=== PATIENT | female | born 1960 | race Caucasian/White ===

== ENCOUNTER 2016-02-29 16:12 | Emergency (ER) | payer MEDICARE, OTHER ==
--- NOTE | 2016-02-29 17:04 | ED ---
General Adult HPI - General Chief complaint: Extremity Problem,Nontraumatic Stated complaint: Foot Laceration Time Seen by Provider: 02/29/16 16:43 Source: patient, RN notes reviewed Mode of arrival: wheelchair Limitations: no limitations - History of Present Illness Initial comments: Patient 55-year-old female sitting past medical history of diabetes, who presents emergency room today with a chief complaint of a wound to the left heel 4 days. She does admit that she noticed 4 days ago. States been bleeding on and off. She does admit some local pain tenderness. Denies any significant injury or trauma. Does admit to a neuropathy. Does not remember stepping on anything. Patient admits that she's been out of her medications. States she has not seen her family doctor in 2-3 months. States she has difficult time making appointments at his office. Patient currently denies any other complaints or associated symptoms. Further information obtained from brother away from bedside stating that she has been refusing to go see the family doctor. States has not been taking medications at home. Patient denies any recent fever, chills, shortness of breath, chest pain, back pain, abdominal pain, nausea or vomiting, dysuria or hematuria, constipation or diarrhea, headaches or visual changes, or any other complaints. - Related Data Home Medications Medication Instructions Recorded Confirmed Aspirin EC [Ecotrin Low Dose] 81 mg PO DAILY 11/30/15 02/29/16 Atorvastatin [Lipitor] 10 mg PO DAILY 11/30/15 02/29/16 Ergocalciferol (Vitamin D2) 50,000 unit PO Q7D 02/29/16 02/29/16 [Vitamin D2] Previous Rx's Medication Instructions Recorded Linagliptin [Tradjenta] 5 mg PO DAILY #30 tablet 12/01/15 Cephalexin [Keflex] 500 mg PO Q12HR 10 Days 02/29/16 Insulin Aspart [NovoLOG Flexpen] 10 units SQ AC-TID #60 insuln.pen 02/29/16 Insulin Detemir [Levemir Flextouch] 34 unit SQ BID #3 insuln.pen 02/29/16 Levothyroxine Sodium [Synthroid] 50 mcg PO DAILY #30 tab 02/29/16 metFORMIN HCL [Glucophage] 500 mg PO BID-W/MEALS #60 tab 02/29/16 Allergies Allergy/AdvReac Type Severity Reaction Status Date / Time No Known Allergies Allergy Verified 02/29/16 16:57 Review of Systems ROS Statement: Those systems with pertinent positive or pertinent negative responses have been documented in the HPI. ROS Other: All systems not noted in ROS Statement are negative. Past Medical History Past Medical History: Diabetes Mellitus, Fibromyalgia, Hyperlipidemia, Musculoskeletal Disorder, Neurologic Disorder, Osteoarthritis (OA), Sleep Apnea/ CPAP/BIPAP, Thyroid Disorder Additional Past Medical History / Comment(s): neuropathy, bowel and bladder incont, History of Any Multi-Drug Resistant Organisms: None Reported Past Surgical History: No Surgical Hx Reported Past Psychological History: No Psychological Hx Reported Smoking Status: Current every day smoker Past Alcohol Use History: Rare Past Drug Use History: None Reported - Past Family History Mother Family Medical History: Cancer (Mother at age of 69 from lung cancer.) Father Family Medical History: Cancer (Father at age of 60 from mesothelioma.) Brother(s) Family Medical History: Coronary Artery Disease (CAD) (Patient has one brother with CAD.) Sister(s) Family Medical History: Hypertension (Patient has one sister with hypertension.) Daughter(s) Family Medical History: No Reported History (Patient has one daughter no major medical problems) Son(s) Family Medical History: No Reported History (Patient has one son no major medical problems) General Exam - General Exam Comments Initial Comments: General: The patient is awake and alert, in no distress, and does not appear acutely ill. Eye: Pupils are equal, round and reactive to light, extra-ocular movements are intact. No nystagmus. There is normal conjunctiva bilaterally. No signs of icterus. Ears, nose, mouth and throat: There are moist mucous membranes and no oral lesions. Neck: The neck is supple, there is no tenderness or JVD. Cardiovascular: There is a regular rate and rhythm. No murmur, rub or gallop is appreciated. Respiratory: Lungs are clear to auscultation, respirations are non-labored, breath sounds are equal. No wheezes, stridor, rales, or rhonchi. Musculoskeletal: Normal ROM, no tenderness. Strength 5/5. Sensation intact. Pulses equal bilaterally 2+. Neurological: A&O x 3. CN II-XII intact, There are no obvious motor or sensory deficits. Coordination appears grossly intact. Speech is normal. Skin: He does have some skin breakdown to the posterior left heel. Color white. No deep wound. Dry blood locally. Psychiatric: Cooperative, appropriate mood & affect, normal judgment. Limitations: no limitations Course Vital Signs 02/29/16 16:15 Temperature 98.1 F Pulse Rate 92 Respiratory 16 Rate Blood Pressure 138/82 O2 Sat by Pulse 98 Oximetry Medical Decision Making - Medical Decision Making Patient's x-ray reviewed shows no evidence for osteomyelitis. No other acute abnormalities appreciated. Results were discussed with the patient. Patient will be started back on occasions for her diabetes along with Synthroid for hypothyroidism. Patient is advised follow-up with family doctor. She also be given information for on-call doctor states she's unhappy with her current doctor at this time. Patient will also be started on antibiotics for ulcer to the left foot. She is admitted aware of signs and symptoms to return. Patient states understanding and is in agreement. Disposition Clinical Impression: Diabetic foot ulcer Disposition: HOME SELF-CARE Condition: Good Instructions: Diabetic Foot Ulcers (ED) Additional Instructions: Please follow-up the family doctor over the next 2-5 days as discussed. Please use antibiotic as prescribed. Please resume previous medications of insulin, metformin, Synthroid. Please return here to emergency room if any symptoms increase or worsen or for any other concerns as discussed. Prescriptions: Cephalexin [Keflex] 500 mg PO Q12HR 10 Days Insulin Aspart [NovoLOG Flexpen] 10 units SQ AC-TID #60 insuln.pen Insulin Detemir [Levemir Flextouch] 34 unit SQ BID #3 insuln.pen Levothyroxine Sodium [Synthroid] 50 mcg PO DAILY #30 tab metFORMIN HCL [Glucophage] 500 mg PO BID-W/MEALS #60 tab Referrals: Lee Carter DO [Primary Care Provider] - 1-2 days Edgar Gallardo MD [REFERRING] - 1-2 days Jasmina Loja MD [STAFF PHYSICIAN] - 1-2 days Time of Disposition: 18:01
--- NOTE | 2016-02-29 17:47 | XR ---
EXAMINATION TYPE: XR foot complete LT DATE OF EXAM: 02/29/2016 5:36 PM COMPARISON: NONE HISTORY: Heel infection TECHNIQUE: 3 views FINDINGS: Metatarsals appear intact. There is a moderate plantar calcaneal spur. There is soft tissue deformity at the plantar aspect of the calcaneus consistent with ulceration. There are no erosions. IMPRESSION: Calcaneal spurring. No evidence of osteomyelitis. Soft tissue ulceration.
[2016-02-29 18:25] VITALS: RESP 18
[2016-02-29 18:26] VITALS: BP 146/88; PULSE 79; TEMP 98.4
== END 2016-02-29 18:15 | disposition home or self-care (01) ==
LOC: EC 16:12
DX: E11.621 Type 2 diabetes mellitus with foot ulcer (principal); E78.5 Hyperlipidemia, unspecified; M19.90 Unspecified osteoarthritis, unspecified site; E03.9 Hypothyroidism, unspecified; Z79.82 Long term (current) use of aspirin; Z79.4 Long term (current) use of insulin; Z79.899 Other long term (current) drug therapy; Z79.84 Long term (current) use of oral hypoglycemic drugs; F17.200 Nicotine dependence, unspecified, uncomplicated
CPT/HCPCS: 99283

== ENCOUNTER 2016-03-08 09:56 | Inpatient (IN) | payer MEDICARE, OTHER ==
--- NOTE | 2016-03-08 10:48 | ED ---
General Adult HPI - General Chief complaint: Recheck/Abnormal Lab/Rx Stated complaint: LEFT FOOT PAIN Source: patient, RN notes reviewed Mode of arrival: wheelchair Limitations: no limitations - History of Present Illness Initial comments: Is a 55-year-old female comes in and is a diabetic. She comes in complaining of a left heel ulcer. Patient states she was in the ER a few days ago and has not followed up with primary medical care doctor. She states the ulcer is getting worse on the foot and now her plantar surface of her mid foot is very tender to touch. The daughter is been taking care of the foot and she has noted redness spreading on the bottom of her foot as well. An has noted that the patient's pain is much worse. Patient states she has switched primary care so she does not have an appointment with her new primary care until Sunday and she states she has never seen him before. Patient denies any fever or chills. Patient denies any other problems at this time. - Related Data Home Medications Medication Instructions Recorded Confirmed Aspirin EC [Ecotrin Low Dose] 81 mg PO DAILY 11/30/15 04/13/16 Atorvastatin [Lipitor] 20 mg PO DAILY 11/30/15 04/13/16 Gabapentin [Neurontin] 100 mg PO DAILY 03/27/16 04/13/16 HYDROcodone/APAP 10-325MG [Mason 1 tab PO BID 03/27/16 04/13/16 10-325] Losartan [Cozaar] 100 mg PO DAILY 03/27/16 04/13/16 Levothyroxine Sodium [Synthroid] 100 mcg PO DAILY 04/13/16 04/13/16 Previous Rx's Medication Instructions Recorded Insulin Aspart [NovoLOG Flexpen] 10 units SQ AC-TID #60 insuln.pen 02/29/16 Insulin Detemir [Levemir Flextouch] 34 unit SQ BID #3 insuln.pen 02/29/16 Ertapenem [INVanz] 1 gm IVPB DAILY vial 03/11/16 Allergies Allergy/AdvReac Type Severity Reaction Status Date / Time No Known Allergies Allergy Verified 04/10/16 13:27 Review of Systems ROS Statement: Those systems with pertinent positive or pertinent negative responses have been documented in the HPI. ROS Other: All systems not noted in ROS Statement are negative. Past Medical History Past Medical History: Diabetes Mellitus, Fibromyalgia, Hyperlipidemia, Musculoskeletal Disorder, Neurologic Disorder, Osteoarthritis (OA), Sleep Apnea/ CPAP/BIPAP, Thyroid Disorder Additional Past Medical History / Comment(s): neuropathy, bowel and bladder incont, History of Any Multi-Drug Resistant Organisms: None Reported Past Surgical History: No Surgical Hx Reported Past Psychological History: No Psychological Hx Reported Smoking Status: Current every day smoker Past Alcohol Use History: Rare Past Drug Use History: None Reported - Past Family History Mother Family Medical History: Cancer (Mother at age of 69 from lung cancer.) Father Family Medical History: Cancer (Father at age of 60 from mesothelioma.) Brother(s) Family Medical History: Coronary Artery Disease (CAD) (Patient has one brother with CAD.) Sister(s) Family Medical History: Hypertension (Patient has one sister with hypertension.) Daughter(s) Family Medical History: No Reported History (Patient has one daughter no major medical problems) Son(s) Family Medical History: No Reported History (Patient has one son no major medical problems) General Exam - General Exam Comments Initial Comments: GENERAL: Patient is well-developed and well-nourished. Patient is nontoxic and well- hydrated and is in mild distress. ENT: Neck is soft and supple. No significant lymphadenopathy is noted. Oropharynx is clear. Moist mucous membranes. Neck has full range of motion without eliciting any pain. EYES: The sclera were anicteric and conjunctiva were pink and moist. Extraocular movements were intact and pupils were equal round and reactive to light. Eyelids were unremarkable. PULMONARY: Unlabored respirations. Good breath sounds bilaterally. No audible rales rhonchi or wheezing was noted. CARDIOVASCULAR: There is a regular rate and rhythm without any murmurs gallops or rubs. ABDOMEN: Soft and nontender with normal bowel sounds. No palpable organomegaly was noted. There is no palpable pulsatile mass. SKIN: Skin is clear with no lesions or rashes and otherwise unremarkable. NEUROLOGIC: Patient is alert and oriented x3. Cranial nerves II through XII are grossly intact. Motor and sensory are also intact. Normal speech, volume and content. Symmetrical smile. MUSCULOSKELETAL: Normal extremities with adequate strength and full range of motion. No lower extremity swelling or edema. No calf tenderness. Patient's heel on the left foot has an area where there is skin overlying an area measuring about 3 cm in diameter and there is a small area where there is bleeding. Patient is tender there and up into the plantar surface of the foot is also red from the heel to the middle of the foot. LYMPHATICS: No significant lymphadenopathy is noted PSYCHIATRIC: Normal psychiatric evaluation. Limitations: no limitations Course Vital Signs 03/08/16 03/08/16 03/08/16 09:57 11:44 12:14 Temperature 97.6 F Pulse Rate 89 79 78 Respiratory 18 18 18 Rate Blood Pressure 124/79 156/78 149/72 O2 Sat by Pulse 96 97 98 Oximetry 03/08/16 03/08/16 03/08/16 12:58 13:03 14:40 Temperature 98.3 F 98.1 F Pulse Rate 83 81 Respiratory 18 18 20 Rate Blood Pressure 146/54 156/70 O2 Sat by Pulse 99 98 Oximetry Medical Decision Making - Medical Decision Making X-ray of the foot shows no signs of osteomyelitis. - Lab Data Result diagrams: 03/10/16 08:19 03/10/16 08:19 Lab Results 03/08/16 03/08/16 03/08/16 Range/Units 10:40 10:40 10:40 WBC 16.1 H (3.8-10.6) k/uL RBC 4.70 (3.80-5.40) m/uL Hgb 14.4 (11.4-16.0) gm/dL Hct 43.6 (34.0-46.0) % MCV 92.7 (80.0-100.0) fL MCH 30.7 (25.0-35.0) pg MCHC 33.1 (31.0-37.0) g/dL RDW 13.2 (11.5-15.5) % Plt Count 355 (150-450) k/uL Neutrophils % 74 % Lymphocytes % 19 % Monocytes % 3 % Eosinophils % 2 % Basophils % 1 % Neutrophils # 12.0 H (1.3-7.7) k/uL Lymphocytes # 3.1 (1.0-4.8) k/uL Monocytes # 0.5 (0-1.0) k/uL Eosinophils # 0.3 (0-0.7) k/uL Basophils # 0.1 (0-0.2) k/uL ESR (0-20) mm/hr Sodium 134 L (137-145) mmol/L Potassium 4.9 (3.5-5.1) mmol/L Chloride 96 L (98-107) mmol/L Carbon Dioxide 26 (22-30) mmol/L Anion Gap 12 mmol/L BUN 15 (7-17) mg/dL Creatinine 0.64 (0.52-1.04) mg/dL Est GFR (MDRD) Af Amer >60 (>60 ml/min/1.73 sqM) Est GFR (MDRD) Non-Af >60 (>60 ml/min/1.73 sqM) Glucose 212 H (74-99) mg/dL POC Glucose (mg/dL) (75-99) mg/dL POC Glu Pediatric Urologist ID [address] Glu mg/dL 329 mg/dL Hemoglobin A1c 13.1 H (4.2-6.1) % Plasma Lactic Acid Madhu (0.7-2.0) mmol/L Calcium 9.9 (8.4-10.2) mg/dL Total Bilirubin 0.6 (0.2-1.3) mg/dL AST 32 (14-36) U/L ALT 19 (9-52) U/L Alkaline Phosphatase 118 (38-126) U/L C-Reactive Protein (<10.0) mg/L Total Protein 8.6 H (6.3-8.2) g/dL Albumin 3.8 (3.5-5.0) g/dL Prealbumin (18-36) mg/dL 03/08/16 03/08/16 03/08/16 Range/Units 11:25 14:43 16:13 WBC (3.8-10.6) k/uL RBC (3.80-5.40) m/uL Hgb (11.4-16.0) gm/dL Hct (34.0-46.0) % MCV (80.0-100.0) fL MCH (25.0-35.0) pg MCHC (31.0-37.0) g/dL RDW (11.5-15.5) % Plt Count (150-450) k/uL Neutrophils % % Lymphocytes % % Monocytes % % Eosinophils % % Basophils % % Neutrophils # (1.3-7.7) k/uL Lymphocytes # (1.0-4.8) k/uL Monocytes # (0-1.0) k/uL Eosinophils # (0-0.7) k/uL Basophils # (0-0.2) k/uL ESR (0-20) mm/hr Sodium (137-145) mmol/L Potassium (3.5-5.1) mmol/L Chloride (98-107) mmol/L Carbon Dioxide (22-30) mmol/L Anion Gap mmol/L BUN (7-17) mg/dL Creatinine (0.52-1.04) mg/dL Est GFR (MDRD) Af Amer (>60 ml/min/1.73 sqM) Est GFR (MDRD) Non-Af (>60 ml/min/1.73 sqM) Glucose (74-99) mg/dL POC Glucose (mg/dL) 225 H 229 H (75-99) mg/dL POC Glu Pediatric Urologist Hola Mitchell [address] Glu mg/dL mg/dL Hemoglobin A1c (4.2-6.1) % Plasma Lactic Acid Madhu 1.2 (0.7-2.0) mmol/L Calcium (8.4-10.2) mg/dL Total Bilirubin (0.2-1.3) mg/dL AST (14-36) U/L ALT (9-52) U/L Alkaline Phosphatase (38-126) U/L C-Reactive Protein (<10.0) mg/L Total Protein (6.3-8.2) g/dL Albumin (3.5-5.0) g/dL Prealbumin (18-36) mg/dL 03/08/16 03/08/16 03/09/16 Range/Units 17:28 21:19 07:35 WBC (3.8-10.6) k/uL RBC (3.80-5.40) m/uL Hgb (11.4-16.0) gm/dL Hct (34.0-46.0) % MCV (80.0-100.0) fL MCH (25.0-35.0) pg MCHC (31.0-37.0) g/dL RDW (11.5-15.5) % Plt Count (150-450) k/uL Neutrophils % % Lymphocytes % % Monocytes % % Eosinophils % % Basophils % % Neutrophils # (1.3-7.7) k/uL Lymphocytes # (1.0-4.8) k/uL Monocytes # (0-1.0) k/uL Eosinophils # (0-0.7) k/uL Basophils # (0-0.2) k/uL ESR (0-20) mm/hr Sodium (137-145) mmol/L Potassium (3.5-5.1) mmol/L Chloride (98-107) mmol/L Carbon Dioxide (22-30) mmol/L Anion Gap mmol/L BUN (7-17) mg/dL Creatinine (0.52-1.04) mg/dL Est GFR (MDRD) Af Amer (>60 ml/min/1.73 sqM) Est GFR (MDRD) Non-Af (>60 ml/min/1.73 sqM) Glucose (74-99) mg/dL POC Glucose (mg/dL) 233 H 230 H 207 H (75-99) mg/dL POC Glu Pediatric Urologist Tala Cobb Joanna Bramer, [place] [address] Glu mg/dL mg/dL Hemoglobin A1c (4.2-6.1) % Plasma Lactic Acid Madhu (0.7-2.0) mmol/L Calcium (8.4-10.2) mg/dL Total Bilirubin (0.2-1.3) mg/dL AST (14-36) U/L ALT (9-52) U/L Alkaline Phosphatase (38-126) U/L C-Reactive Protein (<10.0) mg/L Total Protein (6.3-8.2) g/dL Albumin (3.5-5.0) g/dL Prealbumin (18-36) mg/dL 03/09/16 03/09/16 03/09/16 Range/Units 08:38 08:38 12:30 WBC (3.8-10.6) k/uL RBC (3.80-5.40) m/uL Hgb (11.4-16.0) gm/dL Hct (34.0-46.0) % MCV (80.0-100.0) fL MCH (25.0-35.0) pg MCHC (31.0-37.0) g/dL RDW (11.5-15.5) % Plt Count (150-450) k/uL Neutrophils % % Lymphocytes % % Monocytes % % Eosinophils % % Basophils % % Neutrophils # (1.3-7.7) k/uL Lymphocytes # (1.0-4.8) k/uL Monocytes # (0-1.0) k/uL Eosinophils # (0-0.7) k/uL Basophils # (0-0.2) k/uL ESR 93 H (0-20) mm/hr Sodium (137-145) mmol/L Potassium (3.5-5.1) mmol/L Chloride (98-107) mmol/L Carbon Dioxide (22-30) mmol/L Anion Gap mmol/L BUN (7-17) mg/dL Creatinine (0.52-1.04) mg/dL Est GFR (MDRD) Af Amer (>60 ml/min/1.73 sqM) Est GFR (MDRD) Non-Af (>60 ml/min/1.73 sqM) Glucose (74-99) mg/dL POC Glucose (mg/dL) 320 H (75-99) mg/dL POC Glu Pediatric Urologist ID Tala Goode [address] Glu mg/dL mg/dL Hemoglobin A1c (4.2-6.1) % Plasma Lactic Acid Madhu (0.7-2.0) mmol/L Calcium (8.4-10.2) mg/dL Total Bilirubin (0.2-1.3) mg/dL AST (14-36) U/L ALT (9-52) U/L Alkaline Phosphatase (38-126) U/L C-Reactive Protein 33.0 H (<10.0) mg/L Total Protein (6.3-8.2) g/dL Albumin (3.5-5.0) g/dL Prealbumin 16 L (18-36) mg/dL Disposition Clinical Impression: Infected decubitus ulcer Disposition: ADMITTED IP TO THIS HOSP
--- NOTE | 2016-03-08 11:02 | XR ---
EXAMINATION TYPE: XR foot complete LT DATE OF EXAM: 03/08/2016 10:58 AM CLINICAL HISTORY: pain TECHNIQUE: Frontal, lateral and oblique images of the left foot are obtained. COMPARISON: 1717 FINDINGS: There is no acute fracture/dislocation evident. The joint spaces appear within normal buchanan its. The overlying soft tissue appears unremarkable. Plantar and dorsal calcaneal spurring noted. IMPRESSION: There is no acute fracture or dislocation. ICD 10 NO FRACTURE, INITIAL EVALUATION
[2016-03-08 11:06] LABS: Basophils # (A) 0.1 k/uL (0-0.2); Basophils % (A) 1 %; CH 31.1; CHCM 33.7; Eosinophils # (A) 0.3 k/uL (0-0.7); Eosinophils % (A) 2 %; HCT 43.6 % (34.0-46.0); HDW 2.72; HGB 14.4 gm/dL (11.4-16.0); Luc # (Auto) 0.22; Luc % (Auto) 1; Lymphocytes # (A) 3.1 k/uL (1.0-4.8); Lymphocytes % (A) 19 %; MCH 30.7 pg (25.0-35.0); MCHC 33.1 g/dL (31.0-37.0); MCV 92.7 fL (80.0-100.0); Mean Platelet Volume 7.8; Monocytes # (A) 0.5 k/uL (0-1.0); Monocytes % (A) 3 %; Neutrophils % (A) 74 %; RDW 13.2 % (11.5-15.5); WBC 16.1 k/uL (3.8-10.6); WBC (Perox) 16.46
[2016-03-08 11:20] LABS: ALT 19 U/L (9-52); AST 32 U/L (14-36); Alkaline Phosphatase 118 U/L (38-126); Anion Gap 12 mmol/L; Blood Urea Nitrogen 15 mg/dL (7-17); Calcium 9.9 mg/dL (8.4-10.2); Carbon Dioxide 26 mmol/L (22-30); Chloride 96 mmol/L (98-107); Glucose 212 mg/dL (74-99); Non-African American GFR(MDRD) >60 (>60 ml/min/1.73 sqM); Sodium 134 mmol/L (137-145); Total Bilirubin 0.6 mg/dL (0.2-1.3); Total Protein 8.6 g/dL (6.3-8.2)
[2016-03-08 11:35] LABS: Potassium 4.9 mmol/L (3.5-5.1)
[2016-03-08] MEDS ORDERED: IV VANCOMYCIN PER PHARMACY 1 EACH MISC MISCELLANE PRN (12:30)
[2016-03-08] MEDS ORDERED: VANCOMYCIN 1,750 MG in SODIUM CHLORIDE 0.9% 250 ML IVPB STA (12:31)
[2016-03-08] MEDS ORDERED: SODIUM CHLORIDE 0.9% 1,000 ML IV ONE (12:31)
[2016-03-08] MEDS ORDERED: HYDROmorphone 1 MG/ML 1 ML SYRINGE IVP STA ×2 (14:15→14:18)
[2016-03-08 14:26] LABS: Hemoglobin A1C 13.1 % (4.2-6.1)
[2016-03-08 14:45] LABS: Glucose,Whole Blood 225 mg/dL (75-99)
[2016-03-08] MEDS: INSULIN LISPRO (humaLOG) 300 UNIT/3 ML VIAL SQ SCH ×3 (14:58→21:53)
[2016-03-08 16:14] LABS: Glucose,Whole Blood 229 mg/dL (75-99)
[2016-03-08 17:29] LABS: Glucose,Whole Blood 233 mg/dL (75-99)
[2016-03-08] MEDS: KETOROLAC 30 MG/ML 1 ML VIAL IVP SCH (18:03)
[2016-03-08] MEDS: HYDROcodone/APAP 10-325MG 1 EACH TAB PO PRN (18:05)
[2016-03-08] MEDS ORDERED: NICOTINE 21MG/24HR PATCH TRANSDERM STA (18:15)
[2016-03-08 18:31] VITALS: BMI 44.2
--- NOTE | 2016-03-08 19:19 | HP ---
DATE OF ADMISSION: Patient is a 55-year-old who came in with a left heel ulcer; came in for ( ) ulcer and patient came in with the same ulcer in the ( ) foot area, for which patient was given ( ). ( ) and was sent home. Patient came in with worsening wound. Patient is a diabetic, does have peripheral neuropathy symptoms and appears to have been noncompliant with her medications. Patient states she started taking her diabetic medications about a week ago. Patient's hemoglobin A1C is 13. Patient denied any fever or chills. Patient denied any nausea or vomiting. Patient is complaining of some minimal pain in that area. Patient does have ( ) numbness in bilateral foot area. Patient has ( ) around that area. REVIEW OF SYSTEMS: CONSTITUTIONAL: No fever, no malaise, no fatigue. HEENT: No recent visual problems or hearing problems. Denied any sore throat. CARDIOVASCULAR: No chest pain, orthopnea, PND, no palpitations, no syncope. PULMONARY: No shortness of breath, no cough, no hemoptysis. GASTROINTESTINAL: No diarrhea, no nausea, no vomiting, no abdominal pain. Normoactive bowel sounds. NEUROLOGICAL: No headaches, no weakness, no numbness. HEMATOLOGICAL: Denies any bleeding or petechiae. GENITOURINARY: Denies any burning micturition, frequency, or urgency. MUSCULOSKELETAL/RHEUMATOLOGICAL: Denies any joint pain, swelling, or any muscle pain. ENDOCRINE: Denies any polyuria or polydipsia. DERMATOLOGIC: As described in HPI. The rest of the 14 point review of systems is negative. Home medications include: 1. Aspirin. 2. Atorvastatin. 3. Ergocalciferol. 4. Linagliptin. 5. Cephalexin. 6. Insulin Aspart. 7. Levemir. 8. Levothyroxine. 9. Metformin. ALLERGIES: NO KNOWN DRUG ALLERGIES. Past medical history is significant for: 1. Diabetes mellitus. 2. Fibromyalgia. 3. Hyperlipidemia. 4. Osteoarthritis. 5. Sleep apnea; uses CPAP machine at home. 6. Hypothyroidism. 7. Uncontrolled diabetes mellitus; noncompliance with medications. SOCIAL HISTORY: Patient does smoke a pack per day. Denied any alcohol abuse or any drug abuse. FAMILY HISTORY: Mother had cancer; of lung cancer at age 69. Father had mesothelioma, at age 60. Brother had coronary artery disease. Sister had hypertension. PHYSICAL EXAMINATION: VITAL SIGNS: Temperature afebrile at 97.6, pulse of 89, respiratory rate of 18, blood pressure 124/79. Saturating at 96% on room air. GENERAL: The patient is alert and oriented x3, not in any acute distress. Well developed, well nourished. HEENT: Pupils are round and equally reacting to light. EOMI. No scleral icterus. No conjunctival pallor. Normocephalic, atraumatic. No pharyngeal erythema. No thyromegaly. CARDIOVASCULAR: S1 and S2 present. No murmurs, rubs, or gallops. PULMONARY: Chest is clear to auscultation, no wheezing or crackles. ABDOMEN: Soft, nontender, nondistended, normoactive bowel sounds. No palpable organomegaly. MUSCULOSKELETAL: No joint swelling or deformity. EXTREMITIES: No cyanosis, clubbing, or pedal edema. NEUROLOGICAL: Gross neurological examination did not reveal any focal deficits. SKIN: Patient has an ulcer in the left heel area with skin breakdowns and cellulitis and pus drainage, about 3 cm diameter on the plantar surface of the foot with foul-smelling drainage. Patient may need debridement. LABORATORY DATA: CBC, CMP are abnormal for elevated WBC count of 16,100 and mildly low sodium of 134. ASSESSMENT AND PLAN: 1. Diabetic foot ulcer. Patient's main ( ) need debridement. Will consult Surgery. Patient was started on vancomycin. Because of the foul-smelling drainage, patient may need coverage for anaerobes, and Unasyn is appropriate. Patient will be started on Unasyn as well. 2. Diabetes mellitus with diabetic neuropathy. Patient is highly noncompliant with medication. Counseling was provided regarding that. 3. Coronary artery disease. 4. Hyperlipidemia. 5. Hypertension. 6. Type 2 diabetes mellitus. For above-mentioned chronic medical problems, I will go ahead and continue her home medications. Patient does have sleep apnea and uses CPAP machine. Obesity counseling was provided.
[2016-03-08 21:23] LABS: Glucose,Whole Blood 230 mg/dL (75-99)
[2016-03-08] MEDS: VANCOMYCIN 1,750 MG in SODIUM CHLORIDE 0.9% 250 ML IVPB SCH (21:53)
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
[2016-03-09] MEDS: PIPERACILLIN-TAZOBACTAM 3.375 GM in DEXTROSE/WATER 1 50ML.BAG IVPB SCH ×3 (00:51→16:46)
[2016-03-09] MEDS: KETOROLAC 30 MG/ML 1 ML VIAL IVP SCH ×4 (00:51→18:21)
[2016-03-09 07:37] LABS: Glucose,Whole Blood 207 mg/dL (75-99)
[2016-03-09] MEDS: NICOTINE 21MG/24HR PATCH TRANSDERM SCH (08:36)
[2016-03-09] MEDS: VANCOMYCIN 1,750 MG in SODIUM CHLORIDE 0.9% 250 ML IVPB SCH ×2 (08:36→22:21)
[2016-03-09] MEDS: INSULIN LISPRO (humaLOG) 300 UNIT/3 ML VIAL SQ SCH ×5 (08:36→22:18)
[2016-03-09] MEDS ORDERED: ERGOCALCIFEROL 50,000 UNIT CAP PO SCH (10:45)
[2016-03-09] MEDS ORDERED: metFORMIN 500 MG TAB PO SCH (10:45)
[2016-03-09] MEDS: LEVOTHYROXINE 50 MCG TAB PO SCH (11:50)
[2016-03-09] MEDS: metFORMIN 500 MG TAB PO SCH ×2 (11:50→17:48)
[2016-03-09 12:32] LABS: Glucose,Whole Blood 320 mg/dL (75-99)
--- NOTE | 2016-03-09 14:31 | NM ---
EXAMINATION TYPE: NM bone 3 phase DATE OF EXAM: 03/09/2016 2:00 PM COMPARISON: NONE HISTORY: Osteomyelitis left heel Triple phase bone scintigraphy was performed following the injection of27.5 mCi Tc 99m MDP. Immediat e images and 6 hours post injection images acquired. FINDINGS: All 3 phases of the study demonstrate intense radiotracer accumulation involving the posterior aspect of the left os calcis compatible with osteomyelitis. Mild degenerative uptake is seen about the midf oot. IMPRESSION: Findings compatible with osteomyelitis about the posterior aspect of the left os calcis.
--- NOTE | 2016-03-09 16:38 | P.PN ---
Subjective Date of service 03/09/2016. Progress note being dictated for Dr. Joe. Interval history: This is a 55-year-old female admitted with diabetic foot ulcer , uncontrolled diabetes mellitus, hemoglobin A1c 13.1 in a patient noncompliant with medication, and multiple other medical issues. Wound cultures pending. Maintained on vancomycin and Zosyn, local wound care as per infectious disease. Bone scan pending. Afebrile. Good diet intake with no nausea or vomiting. Blood sugars uncontrolled. Objective - Vital Signs Vital signs: Vital Signs Temp 98.1 F 03/09/16 07:00 Pulse 80 03/09/16 07:00 Resp 19 03/09/16 07:00 BP 150/79 03/09/16 07:00 Pulse Ox 97 03/09/16 07:00 Intake & Output 03/08/16 03/09/16 03/09/16 18:59 06:59 18:59 Intake Total 370 240 Balance 370 240 Weight 113.398 kg Intake: Amount of Fluid Infused ( 250 ml) Oral 120 240 Other: # Voids 1 - Exam PHYSICAL EXAM: VITAL SIGNS: As above GENERAL: [Sitting up at side of bed, no acute distress, eating lunch] HEENT: [Pupils equal conjunctiva normal.] NECK: [Supple, no JVD] RESPIRATORY EFFORT:[Normal] LUNGS: Diminished ,bilateral bases with fine crackles] CARDIOVASCULAR[regular S1 and S2, no murmur or rub or gallop] GI: [Abdomen soft, nontender, positive bowel sounds.] PSYCH: [Alert and oriented -3, mood and affect normal.] SKIN: Left heel dressing clean dry and intact - Labs CBC & Chem 7: 03/08/16 10:40 03/08/16 10:40 Labs: Abnormal Lab Results - Last 24 Hours (Table) 03/08/16 03/08/16 03/08/16 Range/Units 14:43 16:13 17:28 ESR (0-20) mm/hr POC Glucose (mg/dL) 225 H 229 H 233 H (75-99) mg/dL C-Reactive Protein (<10.0) mg/L Prealbumin (18-36) mg/dL 03/08/16 03/09/16 03/09/16 Range/Units 21:19 07:35 08:38 ESR 93 H (0-20) mm/hr POC Glucose (mg/dL) 230 H 207 H (75-99) mg/dL C-Reactive Protein (<10.0) mg/L Prealbumin (18-36) mg/dL 03/09/16 Range/Units 08:38 ESR (0-20) mm/hr POC Glucose (mg/dL) (75-99) mg/dL C-Reactive Protein 33.0 H (<10.0) mg/L Prealbumin 16 L (18-36) mg/dL Microbiology - Last 24 Hours (Table) 03/08/16 19:35 Gram Stain - Preliminary Heel - Left Wound Culture - Preliminary 03/08/16 19:35 Anaerobic Culture - Preliminary Heel - Left Assessment and Plan Plan: 1. Diabetic foot ulcer, bone scan pending, potential debridement. 2. [Diabetes mellitus II, uncontrolled, hemoglobin A1 C 13.1, patient noncompliant with medication]. 3. [Diabetic neuropathy]. 4. [CAD]. 5. [Hyperlipidemia]. 6. [Hypertension]. 7. Morbid obesity, BMI 44.3 8. Sleep apnea Plan: Continue on current medication regime ,monitoring and symptomatic treatment. Lantus, metformin added to med regime. Close monitoring of Accu- Cheks. May initially need an insulin drip. Antibiotics and wound care as per infectious disease. Bone scan pending as mentioned above. Surgery evaluation/ recommendations pending. Dietary, family life educator consults ordered. Social work consult placed given multiple psychosocial issues. Patient has recently changed her primary care to Dr. Gallardo. Prognosis guarded given multiple complex medical issues. The impression and plan of care has been dictated as directed. : I performed a H&P examination of this patient and discussed the same with the dictator. I agree with the dictator's note. Any additional findings/opinions/ etc. will be noted.
[2016-03-09 16:43] LABS: Glucose,Whole Blood 291 mg/dL (75-99)
[2016-03-09] MEDS ORDERED: INSULIN GLARGINE 100 UNIT/ML 10 ML VIAL SQ SCH ×2 (18:00→21:00)
[2016-03-09 21:42] LABS: Glucose,Whole Blood 198 mg/dL (75-99)
--- NOTE | 2016-03-09 22:18 | P.PN ---
Subjective Principal diagnosis: Diabetic foot infection 55-year-old female who suffers from obesity and diabetes mellitus type 2 presents the emergency center for the second time in week because of ongoing difficulties with her left heel. Apparently she presented because ago she was having a bit of an infection of the heel. She was placed on cephalexin and suggested to follow-up with her primary care physician. She apparently had run out of her medications and was in need of further intervention. She is advised to follow up with her primary care physician immediately. Apparently she cannot be seen for a month. Initially continue to worsen she presents back to the emergency center with worsening of the ulceration to the left heel. Increasing blood sugars. Foul drainage from the heel and has noted elevated blood sugars. She's having some pain at the site. He feels quite poorly overall. She basically she's had fevers and chills and does feel weak. She's not had rigors. She relates to difficulties in her home situation that have aggravated her medical condition. Is in the middle of her bone scan. Feels better today. Less fever. Less discomfort. Blood sugars are trending to slight improvement. Objective - Vital Signs Vital signs: Vital Signs Temp 97.6 F 03/09/16 15:00 Pulse 84 03/09/16 19:38 Resp 18 03/09/16 19:38 BP 142/74 03/09/16 15:00 Pulse Ox 98 03/09/16 15:00 - Exam Obese 55-year-old woman who looks older than her stated age. Is uncomfortable and has difficulty maneuvering herself in bed HEENT: Anicteric conjunctiva are pink and moist nasal mucosa grossly intact without significant lesions, there is no thrush. Edentulous Neck: The neck is supple without significant lymphadenopathy or thyromegaly. Lungs: Symmetrical air entry. Basilar crackles are heard. No wheezing. No bronchial sounds. No dullness or egophony. Heart: Regular rate and rhythm with an audible S1-S2, loud S4 There is no significant murmur click or rub, PMI was nondisplaced. Abdomen: Obese, Positive bowel sounds soft and nontender without palpable masses or organomegaly. There was no guarding or rebound. Extremities: The upper extremities have excellent pulses they are symmetric, no significant petechiae or telangiectasia. No splinter hemorrhages were noted. The lower sugars evidence of some chronic venous stasis edema. Right foot is without acute lesions. Overall hygiene is somewhat poor. Left foot shows evidence of the ulceration to the heel. It is full-thickness with fat layer exposed. There is less odor today. Neuro: Awake alert oriented to person place and time. There are no acute new gross focal sensory motor deficits. Markedly decreased sensation to the bilateral feet. - Labs CBC & Chem 7: 03/08/16 10:40 03/08/16 10:40 Labs: Abnormal Lab Results - Last 24 Hours (Table) 03/09/16 03/09/16 Range/Units 16:40 21:33 POC Glucose (mg/dL) 291 H 198 H (75-99) mg/dL Laboratory Results WBC 16.1 k/uL (3.8-10.6) H 03/08/16 10:40 RBC 4.70 m/uL (3.80-5.40) 03/08/16 10:40 Hgb 14.4 gm/dL (11.4-16.0) 03/08/16 10:40 Hct 43.6 % (34.0-46.0) 03/08/16 10:40 MCV 92.7 fL (80.0-100.0) 03/08/16 10:40 MCH 30.7 pg (25.0-35.0) 03/08/16 10:40 MCHC 33.1 g/dL (31.0-37.0) 03/08/16 10:40 RDW 13.2 % (11.5-15.5) 03/08/16 10:40 Plt Count 355 k/uL (150-450) 03/08/16 10:40 Neutrophils % 74 % 03/08/16 10:40 Lymphocytes % 19 % 03/08/16 10:40 Monocytes % 3 % 03/08/16 10:40 Eosinophils % 2 % 03/08/16 10:40 Basophils % 1 % 03/08/16 10:40 Neutrophils # 12.0 k/uL (1.3-7.7) H 03/08/16 10:40 Lymphocytes # 3.1 k/uL (1.0-4.8) 03/08/16 10:40 Monocytes # 0.5 k/uL (0-1.0) 03/08/16 10:40 Eosinophils # 0.3 k/uL (0-0.7) 03/08/16 10:40 Basophils # 0.1 k/uL (0-0.2) 03/08/16 10:40 ESR 93 mm/hr (0-20) H 03/09/16 08:38 Sodium 134 mmol/L (137-145) L 03/08/16 10:40 Potassium 4.9 mmol/L (3.5-5.1) 03/08/16 10:40 Chloride 96 mmol/L (98-107) L 03/08/16 10:40 Carbon Dioxide 26 mmol/L (22-30) 03/08/16 10:40 Anion Gap 12 mmol/L 03/08/16 10:40 BUN 15 mg/dL (7-17) 03/08/16 10:40 Creatinine 0.64 mg/dL (0.52-1.04) 03/08/16 10:40 Est GFR (MDRD) Af Amer >60 (>60 ml/min/1.73 sqM) 03/08/16 10:40 Est GFR (MDRD) Non-Af >60 (>60 ml/min/1.73 sqM) 03/08/16 10:40 Glucose 212 mg/dL (74-99) H 03/08/16 10:40 POC Glucose (mg/dL) 198 mg/dL (75-99) H 03/09/16 21:33 POC Glu Long Lines Operator Letitia Deluca 03/09/16 21:[address] Glu mg/dL 329 mg/dL 03/08/16 10:40 Hemoglobin A1c 13.1 % (4.2-6.1) H 03/08/16 10:40 Plasma Lactic Acid Madhu 1.2 mmol/L (0.7-2.0) 03/08/16 11:25 Calcium 9.9 mg/dL (8.4-10.2) 03/08/16 10:40 Total Bilirubin 0.6 mg/dL (0.2-1.3) 03/08/16 10:40 AST 32 U/L (14-36) 03/08/16 10:40 ALT 19 U/L (9-52) 03/08/16 10:40 Alkaline Phosphatase 118 U/L (38-126) 03/08/16 10:40 C-Reactive Protein 33.0 mg/L (<10.0) H 03/09/16 08:38 Total Protein 8.6 g/dL (6.3-8.2) H 03/08/16 10:40 Albumin 3.8 g/dL (3.5-5.0) 03/08/16 10:40 Prealbumin 16 mg/dL (18-36) L 03/09/16 08:38 Microbiology 03/08/16 19:35 Heel - Left Gram Stain - Preliminary 03/08/16 19:35 Heel - Left Wound Culture - Preliminary Group D Enterococcus Gram Neg Bacilli 03/08/16 10:40 Blood Blood Culture - Preliminary No Growth after 24 hours 03/08/16 19:35 Heel - Left Anaerobic Culture - Preliminary Assessment and Plan (1) Diabetes mellitus type 2, uncontrolled, with complications Narrative/Plan: 55-year-old female presents to the emergency center with a sudden worsening of the ulceration to her left heel. She does not recall trauma to the site. But did have a callus. His hemoglobin A1c is 13.1 which is indicative her for very poor glucose control. Which puts her at great risk for the diabetic foot ulcer. And of course for the difficulty for even foot loss if it's not well cared for. Wound cultures are to been obtained. Antibiotic therapy was started with vancomycin. Piperacillin tazobactam was added for concerns to gram-negative and anaerobic bacteria with a diabetic foot ulcer. Local wound care was started with a saline dressing that will be changed at least daily. Sed rate and CRP are markedly elevated. Albumin is low at 16 Multivitamin added to help with her micronutrients. She will need diabetic education and dietary consult Like to follow in the wound center after her discharge. She needs a protective services social worker to help her with her very complex psychosocial difficulties. Bone scan is awaited for the next plan of therapy Status: Acute (2) Diabetic ulcer of left foot associated with type 2 diabetes mellitus, with fat layer exposed Status: Acute (3) Leukocytosis Status: Acute
[2016-03-10] MEDS: KETOROLAC 30 MG/ML 1 ML VIAL IVP SCH ×5 (00:22→23:29)
[2016-03-10] MEDS: PIPERACILLIN-TAZOBACTAM 3.375 GM in DEXTROSE/WATER 1 50ML.BAG IVPB SCH ×4 (00:23→23:30)
[2016-03-10] MEDS: LEVOTHYROXINE 50 MCG TAB PO SCH (05:41)
[2016-03-10 07:42] LABS: Glucose,Whole Blood 206 mg/dL (75-99)
[2016-03-10] MEDS: NICOTINE 21MG/24HR PATCH TRANSDERM SCH (07:48)
[2016-03-10] MEDS: ASPIRIN 81 MG CHEW PO SCH (07:49)
[2016-03-10] MEDS: ATORVASTATIN 10 MG TAB PO SCH (07:49)
[2016-03-10] MEDS: metFORMIN 500 MG TAB PO SCH ×2 (07:49→17:56)
[2016-03-10] MEDS: INSULIN LISPRO (humaLOG) 300 UNIT/3 ML VIAL SQ SCH ×7 (07:51→20:55)
[2016-03-10] MEDS ORDERED: VANCOMYCIN TROUGH DUE 1 EACH MISC MISCELLANE ONE (08:30)
[2016-03-10 08:46] LABS: Basophils # (A) 0.1 k/uL (0-0.2); Basophils % (A) 1 %; CH 31.1; CHCM 33.1; Eosinophils # (A) 0.2 k/uL (0-0.7); Eosinophils % (A) 2 %; HCT 41.3 % (34.0-46.0); HDW 2.72; HGB 13.1 gm/dL (11.4-16.0); Luc # (Auto) 0.22; Luc % (Auto) 2; Lymphocytes # (A) 3.7 k/uL (1.0-4.8); Lymphocytes % (A) 29 %; MCH 29.9 pg (25.0-35.0); MCHC 31.7 g/dL (31.0-37.0); MCV 94.4 fL (80.0-100.0); Mean Platelet Volume 8.1; Monocytes # (A) 0.6 k/uL (0-1.0); Monocytes % (A) 5 %; Neutrophils # (A) 7.7 k/uL (1.3-7.7); Neutrophils % (A) 62 %; RBC 4.37 m/uL (3.80-5.40); RDW 13.2 % (11.5-15.5); WBC 12.6 k/uL (3.8-10.6); WBC (Perox) 13.05
[2016-03-10 09:03] LABS: Anion Gap 12 mmol/L; Blood Urea Nitrogen 22 mg/dL (7-17); Calcium 9.5 mg/dL (8.4-10.2); Carbon Dioxide 27 mmol/L (22-30); Chloride 99 mmol/L (98-107); Glucose 232 mg/dL (74-99); Non-African American GFR(MDRD) 60 (>60 ml/min/1.73 sqM); Potassium 4.9 mmol/L (3.5-5.1); Sodium 138 mmol/L (137-145)
[2016-03-10] MEDS: VANCOMYCIN 1,750 MG in SODIUM CHLORIDE 0.9% 250 ML IVPB SCH (10:11)
[2016-03-10] MEDS: HYDROcodone/APAP 10-325MG 1 EACH TAB PO PRN ×2 (11:20→17:59)
[2016-03-10] MEDS ORDERED: LIDOCAINE 1% INJ 10MG/ML (20 ML MDV) SQ ONE (11:22)
[2016-03-10 11:56] LABS: Glucose,Whole Blood 268 mg/dL (75-99)
[2016-03-10] MEDS ORDERED: INSULIN GLARGINE 100 UNIT/ML 10 ML VIAL SQ SCH (12:10)
--- NOTE | 2016-03-10 14:06 | IR ---
EXAMINATION TYPE: IR cvc insert >=5 years DATE OF EXAM: 03/10/2016 1:18 PM COMPARISON: None CLINICAL HISTORY: Osteomyelitis Needs long-term intravenous access for antibiotics. PROCEDURE: After informed consent, the skin overlying the left brachial vein was localized with ultrasound and n oted to be compressible and patent. An ultrasound image was obtained and submitted on the patient's chart. The overlying skin was prepped and draped and Lidocaine was used for local anesthesia. A ski n margarita was made with a scalpel. Access was gained to the vein under ultrasound guidance with a 21 ga uge needle and a 0.018 inch wire was advanced. Access site was dilated with Peel-Away sheath and cat heter tailored to the appropriate length and advanced such that the distal tip is at the cavoatrial j unction. Spot image was obtained verifying placement. Catheter was fixed to the skin with suture an d a sterile dressing was placed following hemostasis. Catheter was aspirated and flushed with saline . Patient was discharged in stable condition without complication. Maximal barrier technique is util ized. Ultrasound image is documented on the chart. Ultrasound used with sterile technique. Fluoro time and fluoroscopic images submitted to document procedure: 16 intraoperative C-arm images, 0.1 minutes fluoroscopy time IMPRESSION: STATUS POST ULTRASOUND AND FLUOROSCOPIC GUIDED PICC LINE PLACEMENT, READY FOR USE. THIS PROCEDURE WAS PERFORMED BY THE UNDERSIGNED.
--- NOTE | 2016-03-10 14:12 | P.GSCN ---
History of Present Illness History of present illness: 55 old diabetic female patient has a diabetic pressure ulcer left foot heel area measurement is 5 x 4 cm down to separate his tissue I was consulted for debridement patient has this ulcer for the past 10 days and she's been treated with IV antibiotic she has some fever and right ureters culture has been done and patient is on to antibiotic under care of Dr. Juan Holliday Medical history history of diabetes, history of obesity, On examination neck is supple no bruit appreciated Chest clear auscultation first and second sound normal Abdomen soft nontender Vascular examination femorals are palpable pulses are present but the Doppler patient has a large necrotic wound left heel 5 x 4 cm Plan a debridement of the wound Past Medical History Past Medical History: COPD, Diabetes Mellitus, Eye Disorder, Fibromyalgia, Hyperlipidemia, Hypertension, Musculoskeletal Disorder, Neurologic Disorder, Osteoarthritis (OA), Pneumonia, Skin Disorder, Sleep Apnea/CPAP/BIPAP, Thyroid Disorder Additional Past Medical History / Comment(s): Current L heel ulcer, IDDM type II , diabetic neuropathy hands and feet bilaterally, TERRANCE no device, hypothyroid, bilateral carpal tunnel, vertigo at times, YUROK bilaterally, macular degeneration bilaterally, bronchitis, several pneumonias, sinus problems, bowel and bladder incont, UTIs. History of Any Multi-Drug Resistant Organisms: None Reported Past Surgical History: No Surgical Hx Reported Additional Past Surgical History / Comment(s): Colonoscopy Past Anesthesia/Blood Transfusion Reactions: No Reported Reaction Past Psychological History: Depression Additional Psychological History / Comment(s): for 20 years. Cares for her adult daughter who has cerebral palsy. Her adult brother has moved in with his girlfriend. This is creating great difficulties in the home situation. She's afraid he is trying to have her kicked out of the house to go to the [facility] over the home. She's had a tobacco smoker. She denies alcohol use. No experience. 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 Past Drug Use History: None Reported - Past Family History Mother Family Medical History: Cancer Additional Family Medical History / Comment(s): Mother at 69yrs of age of lung cancer. Father Family Medical History: Cancer Additional Family Medical History / Comment(s): Father at 60 yrs of age of mesothelioma. Brother(s) Family Medical History: Coronary Artery Disease (CAD) Sister(s) Family Medical History: Hypertension Daughter(s) Family Medical History: No Reported History Son(s) Family Medical History: No Reported History Medications and Allergies Home Medications Medication Instructions Recorded Confirmed Type Aspirin EC [Ecotrin Low Dose] 81 mg PO DAILY 11/30/15 03/08/16 History Atorvastatin [Lipitor] 10 mg PO DAILY 11/30/15 03/08/16 History Ergocalciferol (Vitamin D2) 50,000 unit PO Q7D 02/29/16 03/08/16 History [Vitamin D2] Allergies Allergy/AdvReac Type Severity Reaction Status Date / Time No Known Allergies Allergy Verified 03/08/16 10:10 Surgical - Exam Vital Signs Temp Pulse Resp BP Pulse Ox 97.6 F 89 18 124/79 96 03/08/16 09:57 03/08/16 09:57 03/08/16 09:57 03/08/16 09:57 03/08/16 09:57 Results - Labs 03/10/16 08:19 03/10/16 08:19 Abnormal Lab Results - Last 24 Hours (Table) 03/09/16 03/09/16 03/10/16 Range/Units 16:40 21:33 07:21 WBC (3.8-10.6) k/uL BUN (7-17) mg/dL Glucose (74-99) mg/dL POC Glucose (mg/dL) 291 H 198 H 206 H (75-99) mg/dL 03/10/16 03/10/16 03/10/16 Range/Units 08:19 08:19 11:53 WBC 12.6 H (3.8-10.6) k/uL BUN 22 H (7-17) mg/dL Glucose 232 H (74-99) mg/dL POC Glucose (mg/dL) 268 H (75-99) mg/dL Diabetes panel 03/10/16 Range/Units 08:19 Sodium 138 (137-145) mmol/L Potassium 4.9 (3.5-5.1) mmol/L Chloride 99 (98-107) mmol/L Carbon Dioxide 27 (22-30) mmol/L BUN 22 H (7-17) mg/dL Creatinine 0.96 (0.52-1.04) mg/dL Glucose 232 H (74-99) mg/dL Calcium 9.5 (8.4-10.2) mg/dL Calcium panel 03/10/16 Range/Units 08:19 Calcium 9.5 (8.4-10.2) mg/dL Pituitary panel 03/10/16 Range/Units 08:19 Sodium 138 (137-145) mmol/L Potassium 4.9 (3.5-5.1) mmol/L Chloride 99 (98-107) mmol/L Carbon Dioxide 27 (22-30) mmol/L BUN 22 H (7-17) mg/dL Creatinine 0.96 (0.52-1.04) mg/dL Glucose 232 H (74-99) mg/dL Calcium 9.5 (8.4-10.2) mg/dL Adrenal panel 03/10/16 Range/Units 08:19 Sodium 138 (137-145) mmol/L Potassium 4.9 (3.5-5.1) mmol/L Chloride 99 (98-107) mmol/L Carbon Dioxide 27 (22-30) mmol/L BUN 22 H (7-17) mg/dL Creatinine 0.96 (0.52-1.04) mg/dL Glucose 232 H (74-99) mg/dL Calcium 9.5 (8.4-10.2) mg/dL
--- NOTE | 2016-03-10 14:14 | P.WCSRGD ---
Wound Ctr Surgical Debridement Procedure note diagnoses is infected diabetic ulcer left heel measurement is 5 x 4 cm Debridement of the wound down to separate his tissue and the fact left foot was prepped and draped applied a sterile manner 1% lidocaine for infected using sharp scissor we excised the necrotic tissue down to separate his tissue and the fact all the necrotic tissue was removed and no active bleeding was noted wound was irrigated with saline R for that medihoney gel was applied to the wound and pressure dressing was applied post wound debridement is 5 x 5 4 x 1 cm If patient goes home continue with IV antibiotic and I will follow in the wound clinic next Sunday patient will have dressing changes daily with the medihoney gel and antibiotic advise nonweightbearing
[2016-03-10 17:09] LABS: Glucose,Whole Blood 213 mg/dL (75-99)
--- NOTE | 2016-03-10 17:19 | P.PN ---
Subjective Date of service 03/10/2016. Progress note being dictated for Dr. Joe. Interval history: This is a 55-year-old female admitted with diabetic foot ulcer , uncontrolled diabetes mellitus and multiple other medical issues. Preliminary Wound culture reporting Group D Enterococcus and gram-negative bacilli. Bone scan performed yesterday compatible with osteomyelitis. Maintained on vancomycin and Zosyn. Afebrile. Blood sugars uncontrolled. Evaluated by vascular surgery and scheduled for debridement today. Objective - Vital Signs Vital signs: Vital Signs Temp 97.5 F L 03/10/16 15:00 Pulse 77 03/10/16 11:12 Resp 20 03/10/16 15:52 BP 164/83 03/10/16 15:00 Pulse Ox 97 03/10/16 15:00 Intake & Output 03/09/16 03/10/16 03/10/16 18:59 06:59 18:59 Intake Total 660 Balance 660 Intake: Intake, IV Titration 300 Amount Piperacillin-Tazobactam 3 50 .375 gm In Dextrose/Water 1 50ml.bag @ 12.5 mls/hr IVPB Q8HR [facility] Rx#: [id number] Vancomycin 1,750 mg In 250 Sodium Chloride 0.9% 250 ml @ 125 mls/hr IVPB Q12HR [facility] Rx#:[id number] Oral 360 Other: Voiding Method Bedside Commode Bedside Commode # Voids 1 3 - Exam PHYSICAL EXAM: VITAL SIGNS: As above GENERAL: [Sitting up at side of bed, no acute distress HEENT: [Pupils equal conjunctiva normal.] NECK: [Supple, no JVD] RESPIRATORY EFFORT:[Normal] LUNGS: Diminished ,bilateral bases with fine crackles] CARDIOVASCULAR[regular S1 and S2, no murmur or rub or gallop] GI: [Abdomen soft, nontender, positive bowel sounds.] PSYCH: [Alert and oriented -3, mood and affect normal.] SKIN: Left heel dressing clean dry and intact - Labs CBC & Chem 7: 03/10/16 08:19 03/10/16 08:19 Labs: Abnormal Lab Results - Last 24 Hours (Table) 03/09/16 03/10/16 03/10/16 Range/Units 21:33 07:21 08:19 WBC 12.6 H (3.8-10.6) k/uL BUN (7-17) mg/dL Glucose (74-99) mg/dL POC Glucose (mg/dL) 198 H 206 H (75-99) mg/dL 03/10/16 03/10/16 03/10/16 Range/Units 08:19 11:53 17:07 WBC (3.8-10.6) k/uL BUN 22 H (7-17) mg/dL Glucose 232 H (74-99) mg/dL POC Glucose (mg/dL) 268 H 213 H (75-99) mg/dL Assessment and Plan Plan: 1. Diabetic foot ulcer, with osteomyelitis, debridement pending.Preliminary Wound culture reporting Group D Enterococcus and gram-negative bacilli. 2. [Diabetes mellitus II, uncontrolled, hemoglobin A1 C 13.1, patient noncompliant with medication]. 3. [Diabetic neuropathy]. 4. [CAD]. 5. [Hyperlipidemia]. 6. [Hypertension]. 7. Morbid obesity, BMI 44.3 8. Sleep apnea Plan: Continue on current medication regime ,monitoring and symptomatic treatment. Lantus dose increased along with premeal insulin added to med regime. Close monitoring of Accu-Cheks. Follow cultures closely. Antibiotics as per infectious disease. Debridement with vascular surgery pending. Prognosis guarded given multiple complex medical issues. Further recommendations to follow The impression and plan of care has been dictated as directed. : I performed a H&P examination of this patient and discussed the same with the dictator. I agree with the dictator's note. Any additional findings/opinions/ etc. will be noted.
[2016-03-10] MEDS ORDERED: ERTAPENEM 1 GM in SODIUM CHLORIDE 0.9% 50 ML IVPB SCH (21:00)
[2016-03-10 21:06] LABS: Glucose,Whole Blood 186 mg/dL (75-99)
--- NOTE | 2016-03-10 23:04 | P.PN ---
Subjective Principal diagnosis: Diabetic foot infection 55-year-old female who suffers from obesity and diabetes mellitus type 2 presents the emergency center for the second time in week because of ongoing difficulties with her left heel. Apparently she presented because ago she was having a bit of an infection of the heel. She was placed on cephalexin and suggested to follow-up with her primary care physician. She apparently had run out of her medications and was in need of further intervention. She is advised to follow up with her primary care physician immediately. Apparently she cannot be seen for a month. Initially continue to worsen she presents back to the emergency center with worsening of the ulceration to the left heel. Increasing blood sugars. Foul drainage from the heel and has noted elevated blood sugars. She's having some pain at the site. He feels quite poorly overall. She basically she's had fevers and chills and does feel weak. She's not had rigors. She relates to difficulties in her home situation that have aggravated her medical condition. Is in the middle of her bone scan. Feels better today. Less fever. Less discomfort. Blood sugars are trending to slight improvement. Objective - Vital Signs Vital signs: Vital Signs Temp 96.7 F L 03/10/16 21:49 Pulse 77 03/10/16 11:12 Resp 16 03/10/16 21:49 BP 184/90 03/10/16 21:49 Pulse Ox 94 L 03/10/16 21:49 Intake & Output 03/10/16 03/10/16 03/11/16 06:59 18:59 06:59 Intake Total 660 200 Balance 660 200 Intake: Intake, IV Titration 300 Amount Piperacillin-Tazobactam 3 50 .375 gm In Dextrose/Water 1 50ml.bag @ 12.5 mls/hr IVPB Q8HR [facility] Rx#: [id number] Vancomycin 1,750 mg In 250 Sodium Chloride 0.9% 250 ml @ 125 mls/hr IVPB Q12HR [facility] Rx#:[id number] Oral 360 200 Other: Voiding Method Bedside Commode Bedside Commode Bedside Commode # Voids 1 3 - Exam Obese 55-year-old woman who looks older than her stated age. Is uncomfortable and has difficulty maneuvering herself in bed HEENT: Anicteric conjunctiva are pink and moist nasal mucosa grossly intact without significant lesions, there is no thrush. Edentulous Neck: The neck is supple without significant lymphadenopathy or thyromegaly. Lungs: Symmetrical air entry. Basilar crackles are heard. No wheezing. No bronchial sounds. No dullness or egophony. Heart: Regular rate and rhythm with an audible S1-S2, loud S4 There is no significant murmur click or rub, PMI was nondisplaced. Abdomen: Obese, Positive bowel sounds soft and nontender without palpable masses or organomegaly. There was no guarding or rebound. Extremities: The upper extremities have excellent pulses they are symmetric, no significant petechiae or telangiectasia. No splinter hemorrhages were noted. The lower sugars evidence of some chronic venous stasis edema. Right foot is without acute lesions. Overall hygiene is somewhat poor. Left foot shows evidence of the ulceration to the heel. It is full-thickness with fat layer exposed. There is less odor today. 5 x 5.4 x1 cm Neuro: Awake alert oriented to person place and time. There are no acute new gross focal sensory motor deficits. Markedly decreased sensation to the bilateral feet. - Labs CBC & Chem 7: 03/10/16 08:19 03/10/16 08:19 Labs: Abnormal Lab Results - Last 24 Hours (Table) 03/10/16 03/10/16 03/10/16 Range/Units 07:21 08:19 08:19 WBC 12.6 H (3.8-10.6) k/uL BUN 22 H (7-17) mg/dL Glucose 232 H (74-99) mg/dL POC Glucose (mg/dL) 206 H (75-99) mg/dL 03/10/16 03/10/16 03/10/16 Range/Units 11:53 17:07 20:53 WBC (3.8-10.6) k/uL BUN (7-17) mg/dL Glucose (74-99) mg/dL POC Glucose (mg/dL) 268 H 213 H 186 H (75-99) mg/dL Laboratory Results WBC 12.6 k/uL (3.8-10.6) H 03/10/16 08:19 RBC 4.37 m/uL (3.80-5.40) 03/10/16 08:19 Hgb 13.1 gm/dL (11.4-16.0) 03/10/16 08:19 Hct 41.3 % (34.0-46.0) 03/10/16 08:19 MCV 94.4 fL (80.0-100.0) 03/10/16 08:19 MCH 29.9 pg (25.0-35.0) 03/10/16 08:19 MCHC 31.7 g/dL (31.0-37.0) 03/10/16 08:19 RDW 13.2 % (11.5-15.5) 03/10/16 08:19 Plt Count 306 k/uL (150-450) 03/10/16 08:19 Neutrophils % 62 % 03/10/16 08:19 Lymphocytes % 29 % 03/10/16 08:19 Monocytes % 5 % 03/10/16 08:19 Eosinophils % 2 % 03/10/16 08:19 Basophils % 1 % 03/10/16 08:19 Neutrophils # 7.7 k/uL (1.3-7.7) 03/10/16 08:19 Lymphocytes # 3.7 k/uL (1.0-4.8) 03/10/16 08:19 Monocytes # 0.6 k/uL (0-1.0) 03/10/16 08:19 Eosinophils # 0.2 k/uL (0-0.7) 03/10/16 08:19 Basophils # 0.1 k/uL (0-0.2) 03/10/16 08:19 ESR 93 mm/hr (0-20) H 03/09/16 08:38 Sodium 138 mmol/L (137-145) 03/10/16 08:19 Potassium 4.9 mmol/L (3.5-5.1) 03/10/16 08:19 Chloride 99 mmol/L (98-107) 03/10/16 08:19 Carbon Dioxide 27 mmol/L (22-30) 03/10/16 08:19 Anion Gap 12 mmol/L 03/10/16 08:19 BUN 22 mg/dL (7-17) H 03/10/16 08:19 Creatinine 0.96 mg/dL (0.52-1.04) 03/10/16 08:19 Est GFR (MDRD) Af Amer >60 (>60 ml/min/1.73 sqM) 03/10/16 08:19 Est GFR (MDRD) Non-Af 60 (>60 ml/min/1.73 sqM) 03/10/16 08:19 Glucose 232 mg/dL (74-99) H 03/10/16 08:19 POC Glucose (mg/dL) 186 mg/dL (75-99) H 03/10/16 20:53 POC Glu Sliver Handler ID Fay Barrow 03/10/16 20:[address] Glu mg/dL 329 mg/dL 03/08/16 10:40 Hemoglobin A1c 13.1 % (4.2-6.1) H 03/08/16 10:40 Plasma Lactic Acid Madhu 1.2 mmol/L (0.7-2.0) 03/08/16 11:25 Calcium 9.5 mg/dL (8.4-10.2) 03/10/16 08:19 Total Bilirubin 0.6 mg/dL (0.2-1.3) 03/08/16 10:40 AST 32 U/L (14-36) 03/08/16 10:40 ALT 19 U/L (9-52) 03/08/16 10:40 Alkaline Phosphatase 118 U/L (38-126) 03/08/16 10:40 C-Reactive Protein 33.0 mg/L (<10.0) H 03/09/16 08:38 Total Protein 8.6 g/dL (6.3-8.2) H 03/08/16 10:40 Albumin 3.8 g/dL (3.5-5.0) 03/08/16 10:40 Prealbumin 16 mg/dL (18-36) L 03/09/16 08:38 Vancomycin Trough 21.2 ug/mL 03/10/16 08:19 Microbiology 03/08/16 19:35 Heel - Left Gram Stain - Preliminary 03/08/16 19:35 Heel - Left Wound Culture - Preliminary Enterococcus faecalis Escherichia coli Presumptive Staph aureus 03/08/16 10:40 Blood Blood Culture - Preliminary No Growth after 48 hours 03/08/16 19:35 Heel - Left Anaerobic Culture - Preliminary Assessment and Plan (1) Diabetes mellitus type 2, uncontrolled, with complications Narrative/Plan: 55-year-old female presents to the emergency center with a sudden worsening of the ulceration to her left heel. She does not recall trauma to the site. But did have a callus. His hemoglobin A1c is 13.1 which is indicative her for very poor glucose control. Which puts her at great risk for the diabetic foot ulcer. And of course for the difficulty for even foot loss if it's not well cared for. Wound cultures are to been obtained. Antibiotic therapy was started with vancomycin. Piperacillin tazobactam was added for concerns to gram-negative and anaerobic bacteria with a diabetic foot ulcer. Local wound care was started with a saline dressing that will be changed at least daily. Sed rate and CRP are markedly elevated. Albumin is low at 16 Multivitamin added to help with her micronutrients. She will need diabetic education and dietary consult Like to follow in the wound center after her discharge. She needs a social service director to help her with her very complex psychosocial difficulties. Bone scan has verified evidence of osteomyelitis. We'll ask for PICC line to be placed. Vascular surgery consult is in process and further wound debridement is planned. Final culture is pending likely will go home on ertapenem 1 g IV piggyback daily. Which should give us coverage for the 3 preliminarily isolated pathogens. As noted she will need to have enhanced glucose control and offloading to the site for it to heal. We'll follow on the wound healing Center. Status: Acute (2) Diabetic ulcer of left foot associated with type 2 diabetes mellitus, with fat layer exposed Status: Acute (3) Leukocytosis Status: Acute
[2016-03-11] MEDS ORDERED: VANCOMYCIN 1,750 MG in SODIUM CHLORIDE 0.9% 250 ML IVPB SCH ×2
[2016-03-11] MEDS: LEVOTHYROXINE 50 MCG TAB PO SCH (05:54)
[2016-03-11] MEDS: KETOROLAC 30 MG/ML 1 ML VIAL IVP SCH ×2 (05:54→13:12)
[2016-03-11 07:44] LABS: Glucose,Whole Blood 187 mg/dL (75-99)
[2016-03-11 07:45] VITALS: BP 175/80; PULSE 63; RESP 18; TEMP 96.5
[2016-03-11] MEDS: INSULIN LISPRO (humaLOG) 300 UNIT/3 ML VIAL SQ SCH ×4 (08:10→13:13)
[2016-03-11] MEDS: NICOTINE 21MG/24HR PATCH TRANSDERM SCH ×2 (08:12→08:17)
[2016-03-11] MEDS: metFORMIN 500 MG TAB PO SCH (08:12)
[2016-03-11] MEDS: ATORVASTATIN 10 MG TAB PO SCH (08:12)
[2016-03-11] MEDS: ASPIRIN 81 MG CHEW PO SCH (08:12)
[2016-03-11] MEDS: HYDROcodone/APAP 10-325MG 1 EACH TAB PO PRN (08:20)
[2016-03-11] MEDS ORDERED: ERTAPENEM 1 GM in SODIUM CHLORIDE 0.9% 50 ML IVPB SCH (09:00)
[2016-03-11 12:14] LABS: Glucose,Whole Blood 244 mg/dL (75-99)
--- NOTE | 2016-03-11 17:21 | P.PN ---
Subjective Principal diagnosis: Diabetic foot infection 55-year-old female who suffers from obesity and diabetes mellitus type 2 presents the emergency center for the second time in week because of ongoing difficulties with her left heel. Apparently she presented because ago she was having a bit of an infection of the heel. She was placed on cephalexin and suggested to follow-up with her primary care physician. She apparently had run out of her medications and was in need of further intervention. She is advised to follow up with her primary care physician immediately. Apparently she cannot be seen for a month. Initially continue to worsen she presents back to the emergency center with worsening of the ulceration to the left heel. Increasing blood sugars. Foul drainage from the heel and has noted elevated blood sugars. She's having some pain at the site. He feels quite poorly overall. She basically she's had fevers and chills and does feel weak. She's not had rigors. She relates to difficulties in her home situation that have aggravated her medical condition. This completed her bone scan. It is positive. Debridement by the surgeon as occurred. PICC line is in place. She is looking forward to going home. We'll have the care of multiple family members. Objective - Vital Signs Vital signs: Vital Signs Temp 96.5 F L 03/11/16 07:00 Pulse 63 03/11/16 07:00 Resp 18 03/11/16 07:00 BP 175/80 03/11/16 07:00 Pulse Ox 95 03/11/16 07:00 Intake & Output 03/10/16 03/11/16 03/11/16 18:59 06:59 18:59 Intake Total 440 Balance 440 Intake: Oral 440 Other: Voiding Method Bedside Commode Bedside Commode # Voids 3 2 3 - Exam Obese 55-year-old woman who looks older than her stated age. Is uncomfortable and has difficulty maneuvering herself in bed HEENT: Anicteric conjunctiva are pink and moist nasal mucosa grossly intact without significant lesions, there is no thrush. Edentulous Neck: The neck is supple without significant lymphadenopathy or thyromegaly. Lungs: Symmetrical air entry. Basilar crackles are heard. No wheezing. No bronchial sounds. No dullness or egophony. Heart: Regular rate and rhythm with an audible S1-S2, loud S4 There is no significant murmur click or rub, PMI was nondisplaced. Abdomen: Obese, Positive bowel sounds soft and nontender without palpable masses or organomegaly. There was no guarding or rebound. Extremities: The upper extremities have excellent pulses they are symmetric, no significant petechiae or telangiectasia. No splinter hemorrhages were noted. The lower sugars evidence of some chronic venous stasis edema. Right foot is without acute lesions. Overall hygiene is somewhat poor. Left foot shows evidence of the ulceration to the heel. It is full-thickness with fat layer exposed. There is less odor today. 5 x 5.4 x1 cm Neuro: Awake alert oriented to person place and time. There are no acute new gross focal sensory motor deficits. Markedly decreased sensation to the bilateral feet. - Labs CBC & Chem 7: 03/10/16 08:19 03/10/16 08:19 Labs: Abnormal Lab Results - Last 24 Hours (Table) 03/10/16 03/11/16 03/11/16 Range/Units 20:53 06:56 12:07 POC Glucose (mg/dL) 186 H 187 H 244 H (75-99) mg/dL Laboratory Results WBC 12.6 k/uL (3.8-10.6) H 03/10/16 08:19 RBC 4.37 m/uL (3.80-5.40) 03/10/16 08:19 Hgb 13.1 gm/dL (11.4-16.0) 03/10/16 08:19 Hct 41.3 % (34.0-46.0) 03/10/16 08:19 MCV 94.4 fL (80.0-100.0) 03/10/16 08:19 MCH 29.9 pg (25.0-35.0) 03/10/16 08:19 MCHC 31.7 g/dL (31.0-37.0) 03/10/16 08:19 RDW 13.2 % (11.5-15.5) 03/10/16 08:19 Plt Count 306 k/uL (150-450) 03/10/16 08:19 Neutrophils % 62 % 03/10/16 08:19 Lymphocytes % 29 % 03/10/16 08:19 Monocytes % 5 % 03/10/16 08:19 Eosinophils % 2 % 03/10/16 08:19 Basophils % 1 % 03/10/16 08:19 Neutrophils # 7.7 k/uL (1.3-7.7) 03/10/16 08:19 Lymphocytes # 3.7 k/uL (1.0-4.8) 03/10/16 08:19 Monocytes # 0.6 k/uL (0-1.0) 03/10/16 08:19 Eosinophils # 0.2 k/uL (0-0.7) 03/10/16 08:19 Basophils # 0.1 k/uL (0-0.2) 03/10/16 08:19 ESR 93 mm/hr (0-20) H 03/09/16 08:38 Sodium 138 mmol/L (137-145) 03/10/16 08:19 Potassium 4.9 mmol/L (3.5-5.1) 03/10/16 08:19 Chloride 99 mmol/L (98-107) 03/10/16 08:19 Carbon Dioxide 27 mmol/L (22-30) 03/10/16 08:19 Anion Gap 12 mmol/L 03/10/16 08:19 BUN 22 mg/dL (7-17) H 03/10/16 08:19 Creatinine 0.96 mg/dL (0.52-1.04) 03/10/16 08:19 Est GFR (MDRD) Af Amer >60 (>60 ml/min/1.73 sqM) 03/10/16 08:19 Est GFR (MDRD) Non-Af 60 (>60 ml/min/1.73 sqM) 03/10/16 08:19 Glucose 232 mg/dL (74-99) H 03/10/16 08:19 POC Glucose (mg/dL) 244 mg/dL (75-99) H 03/11/16 12:07 POC Glu Order Detailer SHARRI Danica Whalen 03/11/16 12:[address] Glu mg/dL 329 mg/dL 03/08/16 10:40 Hemoglobin A1c 13.1 % (4.2-6.1) H 03/08/16 10:40 Plasma Lactic Acid Madhu 1.2 mmol/L (0.7-2.0) 03/08/16 11:25 Calcium 9.5 mg/dL (8.4-10.2) 03/10/16 08:19 Total Bilirubin 0.6 mg/dL (0.2-1.3) 03/08/16 10:40 AST 32 U/L (14-36) 03/08/16 10:40 ALT 19 U/L (9-52) 03/08/16 10:40 Alkaline Phosphatase 118 U/L (38-126) 03/08/16 10:40 C-Reactive Protein 33.0 mg/L (<10.0) H 03/09/16 08:38 Total Protein 8.6 g/dL (6.3-8.2) H 03/08/16 10:40 Albumin 3.8 g/dL (3.5-5.0) 03/08/16 10:40 Prealbumin 16 mg/dL (18-36) L 03/09/16 08:38 Vancomycin Trough 21.2 ug/mL 03/10/16 08:19 Microbiology 03/08/16 19:35 Heel - Left Gram Stain - Final 03/08/16 19:35 Heel - Left Wound Culture - Final Enterococcus faecalis Escherichia coli Staphylococcus aureus 03/08/16 10:40 Blood Blood Culture - Preliminary No Growth after 72 hours 03/08/16 19:35 Heel - Left Anaerobic Culture - Preliminary Assessment and Plan (1) Diabetes mellitus type 2, uncontrolled, with complications Narrative/Plan: 55-year-old female presents to the emergency center with a sudden worsening of the ulceration to her left heel. She does not recall trauma to the site. But did have a callus. His hemoglobin A1c is 13.1 which is indicative her for very poor glucose control. Which puts her at great risk for the diabetic foot ulcer. And of course for the difficulty for even foot loss if it's not well cared for. Wound cultures are to been obtained. Antibiotic therapy was started with vancomycin. Piperacillin tazobactam was added for concerns to gram-negative and anaerobic bacteria with a diabetic foot ulcer. Local wound care was started with a saline dressing that will be changed at least daily. Sed rate and CRP are markedly elevated. Albumin is low at 16 Multivitamin added to help with her micronutrients. She will need diabetic education and dietary consult Like to follow in the wound center after her discharge. She needs a social science professor to help her with her very complex psychosocial difficulties. Bone scan has verified evidence of osteomyelitis. We'll ask for PICC line to be placed. Vascular surgery consult is in process and further wound debridement is planned. Final culture is available. And she will be discharged home on ertapenem 1 g IV piggyback daily. Which should give us coverage for the 3 isolated pathogens. Has received her first dose at Hospital without difficulty. As noted she will need to have enhanced glucose control and offloading to the site for it to heal. We'll follow on the wound healing Center. Wound care at home has been arranged with medical [facility]. Commode chair has been requested Status: Acute (2) Diabetic ulcer of left foot associated with type 2 diabetes mellitus, with fat layer exposed Status: Acute (3) Leukocytosis Status: Acute
--- NOTE | 2016-03-12 12:04 | DS ---
DATE OF ADMISSION: 03/09/2016 DATE OF DISCHARGE: 03/11/2016 FINAL DIAGNOSIS(ES): 1. Diabetic foot ulcer with osteomyelitis, on the right with wound culture reporting gram negative bacilli. 2. Diabetes mellitus type 2, uncontrolled with hemoglobin 13.1. 3. Diabetic peripheral neuropathy. 4. Coronary artery disease. 5. Hyperlipidemia. 6. Hypertension. 7. Morbid obesity body mass index 44.3. 8. History of sleep apnea. DISCHARGE DISPOSITION: The patient will discharged in stable condition with guarded prognosis. Total time taken 35 minutes. HISTORY OF PRESENT ILLNESS: This 55-year-old woman with a past medical history of multiple medical problems cultures were as above otherwise, was treated symptomatically. Dr. Holliday saw the patient. PICC line inserted. Dr. Zhou also saw the patient in wound care and the patient improved significantly. On exam, vital signs are stable. CARDIOVASCULAR SYSTEM: S1, S2 muffled. ABDOMEN: Soft. Nervous system: No focal deficits. DISCHARGE ADVICE AND MEDICATIONS: 1. Diet is cardiac. 2. Activity limited until follow-up. 3. Follow-up with Dr. Gallardo in one week. 4. Follow up with Dr. Zhou as advised. 5. Follow up with infectious disease as advised. 6. Follow up with wound care as mentioned earlier. 7. Ecotrin 81 mg p.o. daily. 8. Lipitor 10 mg p.o. daily. 9. Vitamin D2 50,000 p.o. weekly. 10. Invanz 1 gram IV q.24 hours for [address] Holliday. 11. Cushing 10 mg q.6 p.r.n. 12. NovoLog FlexPen 10 units a.c. t.i.d. 13. Levemir 35 units subcu b.i.d. 14. Synthroid 50 mcg p.o. daily. 15. Tradjenta 5 mg p.o. daily. 16. Habitrol 21 daily. 17. Glucophage 500 mg p.o. b.i.d. 18. CBC with Dr. Gallardo. Once again the patient will be discharged in a stable condition with guarded prognosis. MTDD
== END 2016-03-11 15:15 | disposition home health service (06) | DRG 623 ==
LOC: EC 09:56 → 4MS4W 12:31 → OBSVTOIN 03-09 15:52
PROVIDERS: ADMIT Internal Medicine; ATTEND Internal Medicine
PROC: B548ZZA Ultrasonography of Superior Vena Cava, Guidance (ICD-10-PCS; principal; 2016-03-10 12:42)
PROC: B5181ZA Fluoroscopy of Superior Vena Cava using Low Osmolar Contrast, Guidance (ICD-10-PCS; principal; 2016-03-10 12:42)
PROC: 02HV33Z Insertion of Infusion Device into Superior Vena Cava, Percutaneous Approach (ICD-10-PCS; principal; 2016-03-10 12:42)
PROC: 0JBR0ZZ Excision of Left Foot Subcutaneous Tissue and Fascia, Open Approach (ICD-10-PCS; 2016-03-10 12:42)
DX: E11.621 Type 2 diabetes mellitus with foot ulcer (principal); L97.422 Non-pressure chronic ulcer of left heel and midfoot with fat layer exposed; M86.9 Osteomyelitis, unspecified; E11.42 Type 2 diabetes mellitus with diabetic polyneuropathy; Z68.41 Body mass index [BMI] 40.0-44.9, adult; Z79.4 Long term (current) use of insulin; D72.829 Elevated white blood cell count, unspecified; E11.65 Type 2 diabetes mellitus with hyperglycemia; E11.69 Type 2 diabetes mellitus with other specified complication; E66.01 Morbid (severe) obesity due to excess calories; E78.5 Hyperlipidemia, unspecified; F17.210 Nicotine dependence, cigarettes, uncomplicated; G47.33 Obstructive sleep apnea (adult) (pediatric); I10 Essential (primary) hypertension; I25.10 Atherosclerotic heart disease of native coronary artery without angina pectoris; J44.9 Chronic obstructive pulmonary disease, unspecified; M79.7 Fibromyalgia; Z82.49 Family history of ischemic heart disease and other diseases of the circulatory system; Z91.14 Patient's other noncompliance with medication regimen; Z91.19 Patient's noncompliance with other medical treatment and regimen
CPT/HCPCS: 36415; 36569; 76937; 77001; 78315; 80048; 80053; 80202; 83036; 83605; 84134; 85025; 85652; 86140; 87040; 87070; 87075; 87077; 87186; 87205; 96361; 96365; 96366; 96367; 96375; 99284

== ENCOUNTER 2016-04-13 07:53 | Day surgery (SDC) | payer MEDICARE, OTHER ==
[2016-04-11 13:52] VITALS: BMI 43.3
[~2016-04-13 07:53] MED LIST: SODIUM CHLORIDE 0.9% 1,000 ML in EMPTY BAG 1 BAG IV ONE
[2016-04-13 08:28] LABS: Glucose,Whole Blood 157 mg/dL (75-99)
[2016-04-13] MEDS ORDERED: SODIUM CHLORIDE 0.9% 1,000 ML IV ONE (08:29)
[2016-04-13 08:54] VITALS: RESP 16; TEMP 98.1
[2016-04-13] MEDS ORDERED: hydrALAZINE HCL 20 MG/ML 1 ML VIAL IVP STA (09:00)
[2016-04-13] MEDS ORDERED: ASPIRIN 81 MG CHEW ONE (09:07)
[2016-04-13] MEDS ORDERED: hydrALAZINE HCL 20 MG/ML 1 ML VIAL IVP ONE ×2 (09:09→10:40)
[2016-04-13] MEDS ORDERED: ASPIRIN 325 MG TAB PO ONE (09:10)
[2016-04-13] MEDS ORDERED: MIDAZOLAM 2 MG/2 ML VIAL IVP ONE (10:35)
[2016-04-13] MEDS ORDERED: LIDOCAINE 2% INJ 20 MG/ML SQ ONE (10:37)
[2016-04-13] MEDS ORDERED: ENALAPRILAT 1.25 MG/ML 1 ML VIAL IVP ONE (10:40)
[2016-04-13] MEDS ORDERED: IODIXANOL 320 MG/ML 100 ML INTRAARTER ONE (11:03)
[2016-04-13] MEDS ORDERED: SODIUM CHLORIDE 0.9% 1,000 ML IV SCH (11:15)
[2016-04-13 11:44] LABS: Glucose,Whole Blood 148 mg/dL (75-99)
[2016-04-13 14:58] VITALS: PULSE 83
[2016-04-13 17:29] VITALS: BP 145/72
--- NOTE | 2016-04-13 21:03 | PCN ---
DATE OF PROCEDURE: April 13, 2016 PERFORMING PHYSICIAN: Shaan Staton M.D. and cementer machine joiner. PROCEDURE PERFORMED: 1. Abdominal aortogram. 2. Bilateral lower extremity runoff. 3. Selective bilateral common femoral arteries angiogram. INDICATION: This is a pleasant 55-year-old female patient who sees Dr. Robert as an outpatient with a known history of peripheral arterial disease, and the patient was struggling with nonhealing ischemic ulcer involving the left heel. She underwent duplex study which showed severe bilateral SFA disease. She was brought today to undergo a peripheral angiogram. Approach: Right common femoral artery. COMPLICATIONS: None. Level of sedation: Moderate. PROCEDURE DESCRIPTION: After obtaining informed consent, the patient was brought to the cardiac optical laboratory manager. The right common femoral artery was cannulated using micropuncture technique. The micropuncture wire passed easily, then I placed 5 [place] sheath in the right common femoral artery. Subsequently, I did an abdominal aortogram and bilateral lower extremity runoff using 5 [place] pigtail catheter which was initially placed at the level of the renal arteries and then it was pulled above the bifurcation of the aorta into right and left common iliac artery. After that, I did select the left common femoral artery using an advantage wire with an Omni flush catheter. After that, I did selective left common femoral artery angiogram and left leg runoff and selective right common femoral artery angiogram and right [id number]-[id number] angiogram. The procedure was completed without any complication. SELECTIVE PERIPHERAL ANGIOGRAM: 1. The aorta is heavily calcified with mild diffuse disease. 2. Common iliac artery. The right and left common iliac arteries are heavily calcified with mild disease only. 3. Internal iliac arteries: Right and left internal iliac arteries are patent. 4. External iliac arteries: The right and left external iliac arteries are calcified with mild disease only. 5. Common femoral arteries: Right and left common femoral arteries are calcified with mild disease only. 6. PROFUNDA: The right and left profunda are patent. 7. SFA: The right and left SFA are heavily calcified with severe disease in the midportion seems to be on the right about 80% to 90% and the left about 70% to 80%. 8. Popliteal: The right and left popliteal appeared to have mild disease only. 9. Below the knee: On the right, there are 3 vessels runoff below the knee with diffuse disease in all of them. 10. On the left, there are 2 vessels runoff with open anterior tibial and peroneal and occluded posterior tibial. The LAD has a tight lesion in the midportion. CONCLUSION: 1. Heavily calcified peripheral arterial system. 2. Severe bilateral SFA disease with critical disease on the right and severe disease on the left. 3. Severe below the knee disease on the left with occluded posterior tibial artery and severe lesion involving the anterior tibial artery. POSTPROCEDURE MANAGEMENT: 1. The patient will be scheduled to undergo an atherectomy and SPRAY APPLICATOR of the left SFA. 2. Possible also an atherectomy and balloon angioplasty of the right anterior tibial artery.
--- NOTE | 2016-04-14 15:09 | IR ---
Fluoroscopy HISTORY: Pain 3.8 minutes fluoroscopy time supplied to the referring clinician. 175 intraoperative C-arm images do cument the procedure. See dictated report from cardiology.
== END 2016-04-13 17:29 | disposition home or self-care (01) ==
LOC: CATHCVL 07:53
PROVIDERS: ATTEND Internal Medicine Interventional Cardiology
DX: I70.244 Atherosclerosis of native arteries of left leg with ulceration of heel and midfoot (principal); Z87.891 Personal history of nicotine dependence; E11.9 Type 2 diabetes mellitus without complications; Z79.4 Long term (current) use of insulin; Z79.84 Long term (current) use of oral hypoglycemic drugs; G47.33 Obstructive sleep apnea (adult) (pediatric); Z79.82 Long term (current) use of aspirin; Z79.899 Other long term (current) drug therapy
CPT/HCPCS: 99152; 99153; 36245; 75625; 75716; 84132; C1894; C1769 ×4; J2001; J2250; J0360; Q9967

== ENCOUNTER 2016-04-26 10:08 | Day surgery (SDC) | payer MEDICARE, OTHER ==
[2016-04-24 12:54] VITALS: BMI 43.4
[~2016-04-26 10:08] MED LIST changes: +ALPRAZolam 0.25 MG TAB PO PRN; +ASPIRIN 325 MG TAB PO STA
[2016-04-26 10:33] LABS: Glucose,Whole Blood 147 mg/dL (75-99)
[2016-04-26] MEDS ORDERED: MIDAZOLAM 2 MG/2 ML VIAL IV ONE (12:29)
[2016-04-26] MEDS ORDERED: LIDOCAINE 2% INJ 20 MG/ML SQ ONE (12:30)
[2016-04-26] MEDS ORDERED: niCARdipine Syringe (1,000 mcg/10 mL) INTRACORON ONE (13:49)
[2016-04-26] MEDS ORDERED: CLOPIDOGREL 75 MG TAB PO ONE (13:49)
[2016-04-26] MEDS ORDERED: NITROGLYCERIN 1000MCG/10ML SYRINGE INTRAARTER ONE (13:49)
[2016-04-26] MEDS ORDERED: IODIXANOL 320 MG/ML 100 ML INTRAARTER ONE (13:50)
[2016-04-26] MEDS ORDERED: SODIUM CHLORIDE 0.9% 1,000 ML IV SCH (14:30)
[2016-04-26] MEDS ORDERED: ATROPINE SULFATE 0.1 MG/ML 10ML SYRINGE ONE (16:30)
[2016-04-26] MEDS: HYDROcodone/APAP 10-325MG 1 EACH TAB PO SCH (17:58)
[2016-04-26] MEDS: INSULIN LISPRO (humaLOG) 300 UNIT/3 ML VIAL SQ SCH (20:39)
[2016-04-26 20:41] LABS: Glucose,Whole Blood 125 mg/dL (75-99)
[2016-04-26] MEDS ORDERED: HYDROcodone/APAP 10-325MG 1 EACH TAB PO SCH (21:00)
[2016-04-26] MEDS ORDERED: ATORVASTATIN 20 MG TAB PO SCH (21:00)
[2016-04-26] MEDS: INSULIN DETEMIR 100 UNIT/ML 10 ML VIAL SQ SCH (21:27)
[2016-04-26] MEDS ORDERED: HYDROmorphone 1 MG/ML 1 ML SYRINGE IVP PRN (22:10)
--- NOTE | 2016-04-26 22:51 | LTR ---
April 26, 2016 RE: Pop Thrasher Dear Edgar: Pop Thrasher underwent successful balloon angioplasty and stenting of the left SFA with a good angiographic result and without any complication. Thank you for allowing me to participate in her care. Please do not hesitate to call if you have any questions or concerns. Sincerely, MARIELOS BRISENO MD
--- NOTE | 2016-04-26 23:10 | PTCA ---
DATE OF SERVICE: April 26, 2016 Performing physician: Shaan Staton M.D., cement kiln operator. PROCEDURE PERFORMED: 1. Selective left [id number]-[id number] angiogram. 2. Selective left superficial femoral artery angiogram. 3. An atherectomy of the left superficial femoral artery using CSI device. 4. Successful balloon angioplasty of the left superficial femoral artery using 6.0 x 80 mm drug-coated balloon with a good angiographic results. 5. Successful stenting of the proximal left superficial femoral artery using 6.0 x 60 and 7.0 x 80 mm self-expandable stent with good angiographic results. 6. Selective right common femoral artery angiogram. INDICATION: This is a pleasant 55-year-old female patient who sees Dr. Gallardo as an outpatient and also sees Dr. Robert as an outpatient, was diagnosed with critical limb ischemia and nonhealing ulcer involving the left nova. She underwent a peripheral angiogram a few weeks ago and that showed severe bilateral SFA disease. The patient was brought today to undergo a FABRIC SEPARATOR OPERATOR of the left SFA. APPROACH: Right common femoral artery. COMPLICATIONS: None. LEVEL OF SEDATION: Moderate with a sedation length of about 2 hours. PROCEDURE DESCRIPTION: After obtaining informed consent, the patient was brought to the cardiac rn cardiac cath. The right common femoral artery was cannulated using micropuncture technique. The micropuncture wire passed easily. Then I placed a 6 Bhutanese sheath in the right common femoral artery. Subsequently I did select the left SFA using an 0.035 Advantage wire with a back-up support of 0.035 rim catheter. I had some difficulties advancing the 0.035 Advantage wire to the left SFA, so I had to use an 0.035 Glidewire. Subsequently, I did exchange my 11 cm 6 Bhutanese sheath into 55 cm 6 Bhutanese sheath over the Advantage wire. The tip of the sheath was positioned in the left common femoral artery. At that point, anticoagulation was initiated using heparin and the patient was given 10,000 units of heparin IV. Subsequently, I did exchange my 0.035 wire into a 0.014 ViperWire using an 0.035 Quick-Cross catheter preparing rotational atherectomy using the Diamondback. After that, I did multiple runs of atherectomy of the left SFA in the distal and proximal portion using the CSI diamondback device. At that point for the lesion in the left distal SFA, I did balloon angioplasty initially using 5.0 mm balloon, then 6.0 drug-coated balloon. The following angiogram showed good angiographic results for that distal left SFA. For the left proximal SFA, I did balloon angioplasty using initially 5.0 and then 6.0 balloon, but the following angiogram showed dissection involving the very proximal left SFA just distal to the profunda bifurcation. I decided to cover that with a stent, so I deployed Supera 6.0 mm stent and then I deployed a Zilver PTX 7.0 mm stent. After that, I did balloon angioplasty of the overlap between the 2 stents using a 6 mm balloon. The following angiogram showed good angiographic results. At that point, I did exchange my 55 cm 6 Bhutanese sheath into 11 cm 6 Bhutanese sheath using an 0.035 Advantage wire. Then I did selective right common femoral artery angiogram. I tried to close the groin using the Perclose device, but I was unable, so I re-inserted the sheath again. POSTPROCEDURE MANAGEMENT: 1. Dual antiplatelet therapy. 2. Risk factor modification. 3. Follow up with the patient.
[2016-04-27 04:02] VITALS: PULSE 78
[2016-04-27 05:30] LABS: Glucose,Whole Blood 206 mg/dL (75-99)
[2016-04-27] MEDS ORDERED: LEVOTHYROXINE 100 MCG TAB PO SCH (06:30)
[2016-04-27 06:37] LABS: Basophils # (A) 0.1 k/uL (0-0.2); Basophils % (A) 1 %; CH 30.4; CHCM 32.8; Eosinophils # (A) 0.4 k/uL (0-0.7); Eosinophils % (A) 4 %; HCT 34.7 % (34.0-46.0); HDW 2.56; HGB 11.3 gm/dL (11.4-16.0); Luc # (Auto) 0.29; Luc % (Auto) 3; Lymphocytes # (A) 2.6 k/uL (1.0-4.8); Lymphocytes % (A) 25 %; MCH 30.4 pg (25.0-35.0); MCHC 32.6 g/dL (31.0-37.0); MCV 93.2 fL (80.0-100.0); Mean Platelet Volume 7.6; Monocytes # (A) 0.4 k/uL (0-1.0); Monocytes % (A) 4 %; Neutrophils # (A) 6.6 k/uL (1.3-7.7); Neutrophils % (A) 64 %; RBC 3.72 m/uL (3.80-5.40); RDW 14.1 % (11.5-15.5); WBC 10.4 k/uL (3.8-10.6); WBC (Perox) 10.79
[2016-04-27 06:38] LABS: Anion Gap 9 mmol/L; Blood Urea Nitrogen 28 mg/dL (7-17); Carbon Dioxide 25 mmol/L (22-30); Chloride 107 mmol/L (98-107); Glucose 211 mg/dL (74-99); Non-African American GFR(MDRD) >60 (>60 ml/min/1.73 sqM); Potassium 4.8 mmol/L (3.5-5.1); Sodium 141 mmol/L (137-145)
[2016-04-27] MEDS: INSULIN LISPRO (humaLOG) 300 UNIT/3 ML VIAL SQ SCH (07:32)
[2016-04-27 08:07] VITALS: BP 142/63; RESP 20; TEMP 96.7
[2016-04-27] MEDS: INSULIN DETEMIR 100 UNIT/ML 10 ML VIAL SQ SCH (08:15)
[2016-04-27] MEDS: HYDROcodone/APAP 10-325MG 1 EACH TAB PO SCH (08:16)
--- NOTE | 2016-04-27 08:39 | IR ---
EXAMINATION TYPE: IR stent intravas non coronary DATE OF EXAM: 04/26/2016 2:32 PM CLINICAL HISTORY: Left leg pain TECHNIQUE: Fluoroscopy. COMPARISON: None. FINDINGS: Fluoroscopic guidance was provided during left lower extremity angiogram procedure with st ent placement performed by Dr. Staton. A total of 21.4 minutes of fluoroscopic time was utilized dur ing the procedure and multiple spot images was acquired. Please refer to procedure note as I was not present nor performed procedure. IMPRESSION: As Above.
[2016-04-27] MEDS ORDERED: ASPIRIN 325 MG TAB PO SCH (09:00)
[2016-04-27] MEDS ORDERED: CLOPIDOGREL 75 MG TAB PO SCH (09:00)
[2016-04-27] MEDS ORDERED: GABAPENTIN 100 MG CAP PO SCH (09:00)
[2016-04-27] MEDS ORDERED: LOSARTAN 50 MG TAB PO SCH (09:00)
[2016-04-27] MEDS ORDERED: ERTAPENEM 1 GM VIAL IVPB SCH (09:00)
[2016-04-27] MEDS ORDERED: ERTAPENEM 1 GM in SODIUM CHLORIDE 0.9% 50 ML IVPB SCH (09:00)
--- NOTE | 2016-04-27 09:26 | DS ---
DATE OF ADMISSION: 04/26/2016 DATE OF DISCHARGE: 04/27/2016 BRIEF HISTORY: This is a pleasant 55-year-old female patient who sees Dr. Robert as an outpatient, who was diagnosed with critical limb ischemia of the left foot. She underwent peripheral angiogram which showed severe disease involving the left SFA. She was admitted to the hospital and underwent successful angioplasty of the left SFA with a good angiographic result and without any complication. The procedure was performed from right groin, which is soft and nontender and without any bruises. The patient is going to be discharged home on dual antiplatelet therapy and I will follow up with the patient as an outpatient in the office.
== END 2016-04-27 08:53 ==
LOC: CATHCVL 10:08 → 6SEL 15:55 → CATHCVL 04-27 08:53
PROVIDERS: ATTEND Internal Medicine Interventional Cardiology
DX: I70.223 Atherosclerosis of native arteries of extremities with rest pain, bilateral legs (principal); L97.429 Non-pressure chronic ulcer of left heel and midfoot with unspecified severity; I99.8 Other disorder of circulatory system; F17.210 Nicotine dependence, cigarettes, uncomplicated; I10 Essential (primary) hypertension; E78.5 Hyperlipidemia, unspecified; E11.9 Type 2 diabetes mellitus without complications; Z79.4 Long term (current) use of insulin; Z79.84 Long term (current) use of oral hypoglycemic drugs; G47.33 Obstructive sleep apnea (adult) (pediatric); Z82.3 Family history of stroke; Z79.82 Long term (current) use of aspirin; Z79.899 Other long term (current) drug therapy
CPT/HCPCS: 37227; 85347; 80048; 85025; 99152; 99153 ×6; C1894 ×2; C1769 ×7; C1714; C1725 ×3; C2623; C1876; C1760; C1874; J2001; J2250; Q9967; J1170; J1644

== ENCOUNTER 2017-10-19 15:48 | Inpatient (IN) | payer MEDICARE, OTHER ==
--- NOTE | 2017-10-19 17:46 | ED ---
Extremity Problem HPI - General Source: patient, RN notes reviewed Mode of arrival: wheelchair Limitations: no limitations <Gianna Tolentino - Last Filed: 10/19/17 20:13> <Jonathan Carroll - Last Filed: 10/19/17 20:25> - General Chief complaint: Extremity Problem,Nontraumatic Stated complaint: rt foot infectiom Time Seen by Provider: 10/19/17 17:23 - History of Present Illness Initial comments: This is a 57-year-old female with history of type II diabetes and neuropathy who presents to the emergency department with chief complaint right foot infection. Patient states that on Sunday her tfnqnxqt-xh-[id number] came over to wash her feet and noticed 2 wounds on the bottom of patient's right foot. She states that a tack was found in her shoe. Patient states that on Sunday her right foot became very swollen and tender. She states that she has been unable to bear weight on the foot since yesterday. She states she is up-to-date with all vaccinations including tetanus. States that she does have a history of diabetic foot wounds for which she has been treated by Dr. Holliday. Patient denies any fevers or chills, chest pain or shortness of breath, abdominal pain, nausea and vomiting. (Gianna Tolentino) - Related Data Home Medications Medication Instructions Recorded Confirmed Atorvastatin [Lipitor] 20 mg PO HS 11/30/15 10/19/17 Gabapentin [Neurontin] 100 mg PO DAILY 03/27/16 10/19/17 Losartan [Cozaar] 100 mg PO DAILY 03/27/16 10/19/17 Levothyroxine Sodium [Synthroid] 100 mcg PO DAILY 04/13/16 10/19/17 Diphenox-Atrop 2.5-0.025 mg 1 tab PO DAILY PRN 10/19/17 10/19/17 [Lomotil] Insulin Aspart [NovoLOG Flexpen] 15 units SQ AC-TID 10/19/17 10/19/17 Insulin Detemir [Levemir Flextouch] 50 unit SQ BID 10/19/17 10/19/17 Previous Rx's Medication Instructions Recorded Aspirin 325 mg PO DAILY #90 tab 04/27/16 Clopidogrel [Plavix] 75 mg PO DAILY #90 tab 04/27/16 Allergies Allergy/AdvReac Type Severity Reaction Status Date / Time No Known Allergies Allergy Verified 10/19/17 16:32 Review of Systems ROS Other: All systems not noted in ROS Statement are negative. <Gianna Tolentino - Last Filed: 10/19/17 20:13> ROS Other: All systems not noted in ROS Statement are negative. <Jonathan Carroll - Last Filed: 10/19/17 20:25> ROS Statement: Those systems with pertinent positive or pertinent negative responses have been documented in the HPI. Past Medical History Past Medical History: COPD, Diabetes Mellitus, Eye Disorder, Fibromyalgia, Hyperlipidemia, Hypertension, Musculoskeletal Disorder, Neurologic Disorder, Osteoarthritis (OA), Pneumonia, Skin Disorder, Sleep Apnea/CPAP/BIPAP, Thyroid Disorder Additional Past Medical History / Comment(s): Current L heel ulcer, IDDM type II , diabetic neuropathy hands and feet bilaterally, TERRANCE no device, bilateral carpal tunnel, vertigo at times, [place] bilaterally, macular degeneration bilaterally, hx. bronchitis, & pneumonias, sinus problems, bowel and bladder incont, UTIs. History of Any Multi-Drug Resistant Organisms: None Reported Past Surgical History: No Surgical Hx Reported Additional Past Surgical History / Comment(s): Colonoscopy, PICC line, aortogram ,stent & LABA Past Anesthesia/Blood Transfusion Reactions: No Reported Reaction Past Psychological History: Depression Smoking Status: Current every day smoker Past Alcohol Use History: Rare Past Drug Use History: None Reported - Past Family History Mother Family Medical History: Cancer Additional Family Medical History / Comment(s): Mother at 69yrs of age of lung cancer. Father Family Medical History: Cancer Additional Family Medical History / Comment(s): Father at 60 yrs of age of mesothelioma. Brother(s) Family Medical History: Coronary Artery Disease (CAD) Sister(s) Family Medical History: Hypertension Daughter(s) Family Medical History: No Reported History Son(s) Family Medical History: No Reported History <Gianna Tolentino - Last Filed: 10/19/17 20:13> General Exam Limitations: no limitations <Gianna Tolentino - Last Filed: 10/19/17 20:13> <Jonathan Carroll - Last Filed: 10/19/17 20:25> - General Exam Comments Initial Comments: General: Awake and alert, well-developed; in no apparent distress. HEENT: Head atraumatic, normocephalic. Pupils are equal, round and reactive to light. Extraocular movements intact. Oropharynx moist without erythema or exudate. Neck: Supple. Normal ROM. Cardiovascular: Regular rate and rhythm. No murmurs, rubs or gallops. Chest symmetrical. Faint but present pedal pulses with Doppler bilaterally. Respiratory: Lungs clear to auscultation bilaterally. No wheezes, rales or rhonchi. Normal respiratory effort with no use of accessory muscles. Musculoskeletal: Normal ROM of right ankle and foot. Patient unable to bear weight on right foot due to pain. Two puncture wounds, one distal plantar surface and the other on the heel. Distal dorsal right foot edematous and erythematous. Limited sensation of dorsal surface. Skin: Two right foot wounds as noted above. Weeping, superficial dry scaly wound distal right lower extremity. Neurological: Alert and oriented x3. CN II-XII grossly intact. Speech is fluent and answers are appropriate. No focal neuro deficits. Psychiatric: Normal mood and affect. No overt signs of depression or anxiety noted. (Gianna Tolentino) Course <Gianna Tolentino - Last Filed: 10/19/17 20:13> <Jonathan Carroll - Last Filed: 10/19/17 20:25> Vital Signs 10/19/17 16:29 Temperature 97.9 F Pulse Rate 91 Respiratory 16 Rate Blood Pressure 160/90 O2 Sat by Pulse 96 Oximetry - Reevaluation(s) Reevaluation #1: At this time, patient does meet sepsis criteria. Started on vancomycin and Zosyn. 10/19/17 18:33 (Gianna Tolentino) 10/19/17 20:23 Patient was reevaluated by myself, Dr. Carroll. Patient resting comfortably in bed. Family is present. Patient does have 2 diabetic foot ulcers on the right foot. There is associated edema and cellulitis extending to the lower nova. Patient does meet sepsis criteria. Blood culture and lactic acid and IV antibiotics have been ordered. Case was discussed in detail with practitioner Nicolasa, covering for Dr. Eason, who will admit for Dr. Gallardo. (Jonathan Carroll) Medical Decision Making - Lab Data Result diagrams: 10/19/17 18:01 10/19/17 18:01 - Radiology Data Radiology results: report reviewed, image reviewed <Gianna Tolentino - Last Filed: 10/19/17 20:13> - Lab Data Result diagrams: 10/19/17 18:01 10/19/17 18:01 <Jonathan Carroll - Last Filed: 10/19/17 20:25> - Medical Decision Making This is a 57-year-old female who presents to the emergency department with chief complaint of infected right foot wounds. Patient does have a history of diabetes and neuropathy. Patient has 2 puncture-like wounds to the bottom of her right foot. Foot is erythematous and edematous. X-ray was obtained which did reveal a 3 mm foreign body in the heel. This is not visualized and unable to be removed. White blood cell count is 15,000. She does meet sepsis criteria ; started on vancomycin and Zosyn. She was found to have a blood glucose level of 491. Given 10 units of NovoLog and started on sliding scale and given 2 L of fluid. Vitals are stable and she is in no acute distress. Patient is in agreement for admission. She will be admitted for sepsis, diabetic foot ulcers and retained foreign body. She will be admitted to Dr. Eason with consult to Dr. Holliday. (Gianna Tolentino) - Lab Data Lab Results 10/19/17 10/19/17 10/19/17 Range/Units 18:01 18:01 18:01 WBC 15.0 H (3.8-10.6) k/uL RBC 4.70 (3.80-5.40) m/uL Hgb 14.0 (11.4-16.0) gm/dL Hct 44.9 (34.0-46.0) % MCV 95.6 (80.0-100.0) fL MCH 29.9 (25.0-35.0) pg MCHC 31.3 (31.0-37.0) g/dL RDW 13.9 (11.5-15.5) % Plt Count 239 (150-450) k/uL Neutrophils % 79 % Lymphocytes % 14 % Monocytes % 5 % Eosinophils % 1 % Basophils % 0 % Neutrophils # 11.8 H (1.3-7.7) k/uL Lymphocytes # 2.1 (1.0-4.8) k/uL Monocytes # 0.7 (0-1.0) k/uL Eosinophils # 0.2 (0-0.7) k/uL Basophils # 0.1 (0-0.2) k/uL Sodium 135 L (137-145) mmol/L Potassium 4.5 (3.5-5.1) mmol/L Chloride 97 L (98-107) mmol/L Carbon Dioxide 28 (22-30) mmol/L Anion Gap 10 mmol/L BUN 29 H (7-17) mg/dL Creatinine 1.03 (0.52-1.04) mg/dL Est GFR (CKD-EPI)AfAm 69 (>60 ml/min/1.73 sqM) Est GFR (CKD-EPI)NonAf 60 (>60 ml/min/1.73 sqM) Glucose 491 H (74-99) mg/dL Plasma Lactic Acid Madhu 1.5 (0.7-2.0) mmol/L Calcium 8.8 (8.4-10.2) mg/dL Total Bilirubin 0.4 (0.2-1.3) mg/dL AST 23 (14-36) U/L ALT 29 (9-52) U/L Alkaline Phosphatase 177 H (38-126) U/L Total Protein 6.7 (6.3-8.2) g/dL Albumin 3.1 L (3.5-5.0) g/dL - Radiology Data X-ray right foot impression: Soft tissue foreign body. Soft tissue swelling. ( Gianna Tolentino) Disposition Is patient prescribed a controlled substance at d/c from ED?: No Time of Disposition: 20:14 <Gianna Tolentino - Last Filed: 10/19/17 20:13> <Jonathan Carroll - Last Filed: 10/19/17 20:25> Clinical Impression: Diabetic foot infection, Sepsis, Retained foreign body of foot Disposition: ADMITTED IP TO THIS HOSP Condition: Good Referrals: Egdar Gallardo MD [Primary Care Provider] - 1-2 days
[2017-10-19 18:22] LABS: Basophils # (A) 0.1 k/uL (0-0.2); Basophils % (A) 0 %; Eosinophils # (A) 0.2 k/uL (0-0.7); Eosinophils % (A) 1 %; HCT 44.9 % (34.0-46.0); Lymphocytes # (A) 2.1 k/uL (1.0-4.8); Lymphocytes % (A) 14 %; MCH 29.9 pg (25.0-35.0); MCHC 31.3 g/dL (31.0-37.0); MCV 95.6 fL (80.0-100.0); Mean Platelet Volume 8.5; Monocytes # (A) 0.7 k/uL (0-1.0); Monocytes % (A) 5 %; Neutrophils # (A) 11.8 k/uL (1.3-7.7); Neutrophils % (A) 79 %; Platelet Count 239 k/uL (150-450); RDW 13.9 % (11.5-15.5)
--- NOTE | 2017-10-19 18:26 | XR ---
EXAMINATION TYPE: XR foot complete RT DATE OF EXAM: 10/19/2017 COMPARISON: NONE HISTORY: Pain TECHNIQUE: 3 views FINDINGS: There is soft tissue swelling of the entire foot. There is plantar calcaneal spurring. Ther e is a 3 mm density at the plantar aspect of the calcaneus consistent with a foreign body. Metatarsal s are intact. I see no fracture. IMPRESSION: Soft tissue foreign body. Soft tissue swelling.
[2017-10-19 18:33] LABS: Albumin 3.1 g/dL (3.5-5.0); Calcium 8.8 mg/dL (8.4-10.2); Potassium 4.5 mmol/L (3.5-5.1); Total Bilirubin 0.4 mg/dL (0.2-1.3); Total Protein 6.7 g/dL (6.3-8.2)
[2017-10-19] MEDS ORDERED: VANCOMYCIN IV PER PHARMACY 1 EACH MISC MISCELLANE PRN (18:33)
[2017-10-19] MEDS ORDERED: SODIUM CHLORIDE 0.9% 2,000 ML IV STA (18:35)
[2017-10-19] MEDS ORDERED: INSULIN ASPART 100 UNIT/ML 1 ML 10 ML VIAL SQ ONE (18:35)
[2017-10-19] MEDS ORDERED: PIPERACILLIN-TAZOBACTAM 3.375 GM in DEXTROSE/WATER 1 50ML.BAG IVPB ONE (18:45)
[2017-10-19] MEDS ORDERED: VANCOMYCIN 1,750 MG in SODIUM CHLORIDE 0.9% 250 ML IVPB STA (18:46)
[2017-10-19] MEDS ORDERED: VANCOMYCIN 1,750 MG in SODIUM CHLORIDE 0.9% 500 ML IVPB STA (18:51)
[2017-10-19] MEDS ORDERED: NALOXONE 0.4 MG/ML 1 ML VIAL IV PRN (20:19)
[2017-10-19] MEDS ORDERED: ACETAMINOPHEN TAB 325 MG TAB PO PRN (20:19)
[2017-10-19 23:04] LABS: Glucose,Whole Blood 330 mg/dL (75-99)
[2017-10-19] MEDS ORDERED: DIPHENOX-ATROP 2.5-0.025 MG 1 EACH TAB PO PRN (23:05)
[2017-10-19] MEDS ORDERED: MORPHINE SULFATE 4 MG/ML SYRINGE IVP PRN (23:06)
[2017-10-19] MEDS ORDERED: MORPHINE SULFATE 2 MG/ML SYRINGE IVP PRN (23:06)
[2017-10-19] MEDS ORDERED: ALPRAZolam 0.25 MG TAB PO PRN (23:07)
[2017-10-19] MEDS ORDERED: TEMAZEPAM 15 MG CAP PO PRN (23:07)
[2017-10-19] MEDS: INSULIN ASPART 100 UNIT/ML 1 ML 10 ML VIAL SQ SCH (23:35)
[2017-10-19] MEDS: ATORVASTATIN 20 MG TAB PO SCH (23:36)
[2017-10-19] MEDS: SODIUM CHLORIDE 0.9% 1,000 ML IV SCH (23:36)
--- NOTE | 2017-10-20 00:04 | HP ---
HISTORY AND PHYSICAL CHIEF COMPLAINT: Right foot infection. HISTORY OF PRESENT ILLNESS: This 57-year-old woman with a past medical history of COPD, diabetes mellitus type 2, fibromyalgia, hypertension, hyperlipidemia, history of DJD, history of pneumonia, sleep apnea, history of left ear ulcer, history of diabetes mellitus type 2, history of diabetic neuropathy, history of macular degeneration, is being followed by Dr. Gallardo in the outpatient setting, apparently stepped on some nails and the nail pierced the shoes and the patient noted some pain and swelling in the front of the sole for the last about 5 days ago which is increasing in intensity and the patient came to [facility] and admitted for further evaluation and treatment. The patient does have peripheral neuropathy, high sensitivity has been reported. There is no history of any fever, rigors, chills. No history of headache, loss of consciousness or seizures. The foot was found to be swollen and tender,according to the family. Some redness is extending up to the front of the leg also. Blood sugar is elevated up to 491 at 3:30. PAST MEDICAL HISTORY: History of diabetes mellitus type 2, COPD, history of fibromyalgia, hypertension, hyperlipidemia, history of DJD, history of pneumonia, history of left ear ulcer, history of diabetic neuropathy. MEDICATIONS: 1. Lomotil 1 tablet daily p.r.n. 2. Cozaar 100 mg p.o. daily. 3. Synthroid 100 mcg p.o. daily. 4. Levemir 50 units subcu b.i.d. 5. NovoLog FlexPen 15 units subcu t.i.d. 6. Neurontin 100 mg b.i.d. 7. Plavix 75 mg p.o. daily. 8. Lipitor 20 mg q.h.s. 9. Aspirin 320 mg p.o. daily. ALLERGIES: None. FAMILY HISTORY: History of lung cancer in the family. SOCIAL HISTORY: History of smoking. No history alcohol intake. REVIEW OF SYSTEMS: ENT: No diminished hearing, diminished vision. CARDIOVASCULAR: No angina, palpitations. RESPIRATORY: No cough or hemoptysis. Otherwise as mentioned earlier. GI: No nausea or vomiting. : No dysuria. NERVOUS: No weakness. Numbness as mentioned earlier. ALLERGY/IMMUNOLOGY: No asthma or hay fever. MUSCULOSKELETAL: As mentioned earlier. HEMATOLOGY/ONCOLOGY: No history of anemia. ENDOCRINE: Diabetes. CONSTITUTIONAL: As mentioned earlier. DERMATOLOGY: Negative. RHEUMATOLOGY: Negative. PSYCHIATRY: As mentioned earlier. PHYSICAL EXAMINATION: Alert, oriented. Pulse 89, blood pressure is 119/81, respirations 18, temperature 98.2, pulse ox 94% on room air. HEENT: Conjunctivae normal. Oral mucosa moist. NECK: Obese. CARDIOVASCULAR: S1, S2 muffled. RESPIRATORY: Breath sounds diminished in the bases. No rhonchi. No crackles. ABDOMEN: Soft, obese, nontender. No mass palpable. LEGS: Right leg swelling, tenderness and pain. Right foot also has swelling and pain and tenderness on the right anterior part of the nova present. Significant pain and swelling of the right heel also present. Sensation diminished bilaterally secondary to history of peripheral neuropathy. NERVOUS SYSTEM: Higher functions as mentioned earlier. Moves all 4 limbs. No focal motor deficits. Sensory as mentioned earlier. LYMPHATIC: No lymphadenopathy in neck or axillae. SKIN: As mentioned earlier. JOINTS: No active deforming arthropathy. LABS: WBC 15, hemoglobin is 14. Sodium 130, potassium 4, glucose 491 and 330. Alk phos 387. Albumin is 3.1. A foreign body was noted in the x-ray of the right foot in the ER. ASSESSMENT: 1. Acute cellulitis of the right foot with soft tissue foreign body with a diabetic foot. 2. Increased WBC. 3. Hyponatremia. 4. Diabetes mellitus type 2, uncontrolled with hyperglycemia. 5. Chronic obstructive pulmonary disease. 6. Fibromyalgia. 7. Hypertension. 8. Hyperlipidemia. 9. Degenerative joint disease. 10.History of pneumonia. 11.Sleep apnea. 12.History of left heel ulcer. 13.History of obstructive sleep apnea. 14.Obesity with a body mass index of 42.5. 15.History of anxiety, depression. 16.History of nicotine dependence. RECOMMENDATIONS AND DISCUSSION: In this 57-year-old woman who presented with multiple complex medical issues, we will monitor the patient closely, continue the current medical management and symptomatic treatment. I would recommend to obtain cultures, broad-spectrum IV antibiotics infectious disease evaluation, orthopedic evaluation. Otherwise, monitor blood sugars closely. Accu-Cheks a.c. and at bedtime, DVT prophylaxis. Resume the home medications. Medication reconciliation was done. Symptomatic treatment of the pain. Prognosis guarded because of multiple complex medical issues which I discussed at length with the patient, who understood and agreed and further recommendations to follow. MMODL / IJN: [id number] /
[2017-10-20] MEDS: INSULIN DETEMIR 100 UNIT/ML 10 ML VIAL SQ SCH ×2 (00:08→10:45)
[2017-10-20] MEDS: PIPERACILLIN-TAZOBACTAM 3.375 GM in DEXTROSE/WATER 1 50ML.BAG IVPB SCH ×3 (04:01→21:02)
[2017-10-20] MEDS: LEVOTHYROXINE 50 MCG TAB PO SCH (05:38)
[2017-10-20] MEDS: HYDROcodone/APAP 5-325MG 1 EACH TAB PO PRN ×2 (05:41→19:32)
[2017-10-20] MEDS ORDERED: VANCOMYCIN 1,750 MG in SODIUM CHLORIDE 0.9% 500 ML IVPB SCH (06:00)
--- NOTE | 2017-10-20 07:07 | XR ---
EXAMINATION TYPE: XR chest 1V portable DATE OF EXAM: 10/20/2017 HISTORY: chf. REFERENCE: Previous study dated 11/30/2015. FINDINGS: The heart is enlarged. There is vascular congestion and pulmonary edema. Pleural spaces arabella ear clear. IMPRESSION: FINDINGS CONSISTENT WITH CONGESTIVE HEART FAILURE.
[2017-10-20 07:16] LABS: Glucose,Whole Blood 326 mg/dL (75-99)
[2017-10-20] MEDS: INSULIN ASPART 100 UNIT/ML 1 ML 10 ML VIAL SQ SCH ×7 (07:45→21:02)
[2017-10-20] MEDS: PANTOPRAZOLE 40 MG TABLET PO SCH (07:46)
[2017-10-20 08:06] LABS: Basophils # (A) 0.1 k/uL (0-0.2); Basophils % (A) 1 %; Eosinophils # (A) 0.2 k/uL (0-0.7); Eosinophils % (A) 1 %; HCT 40.2 % (34.0-46.0); HGB 12.3 gm/dL (11.4-16.0); Hypochromasia Slight; Lymphocytes # (A) 1.7 k/uL (1.0-4.8); Lymphocytes % (A) 13 %; MCHC 30.6 g/dL (31.0-37.0); MCV 97.9 fL (80.0-100.0); Mean Platelet Volume 8.1; Monocytes # (A) 0.7 k/uL (0-1.0); Monocytes % (A) 5 %; Neutrophils # (A) 10.7 k/uL (1.3-7.7); Neutrophils % (A) 79 %; Platelet Count 225 k/uL (150-450); RBC 4.11 m/uL (3.80-5.40); WBC 13.5 k/uL (3.8-10.6)
[2017-10-20 08:18] LABS: Calcium 8.2 mg/dL (8.4-10.2); Potassium 4.6 mmol/L (3.5-5.1)
--- NOTE | 2017-10-20 08:47 | US ---
EXAMINATION TYPE: US venous doppler duplex LE BI DATE OF EXAM: 10/20/2017 8:37 AM COMPARISON: NONE CLINICAL HISTORY: dvt. right foot pain SIDE PERFORMED: Bilateral TECHNIQUE: The lower extremity deep venous system is examined utilizing real time linear array sonog kalli with graded compression, doppler sonography and color-flow sonography. VESSELS IMAGED: External Iliac Vein (EIV) Common Femoral Vein Deep Femoral Vein Greater Saphenous Vein * Femoral Vein Popliteal Vein Small Saphenous Vein * Proximal Calf Veins (* superficial vessels) Technically difficult study due to artery calcifications limiting visualization of veins. Right Leg: Negative for DVT Left Leg: Negative for DVT No popliteal fossa lesion is seen. IMPRESSION: THIS EXAMINATION IS NEGATIVE FOR DVT IN BOTH LEGS.
[2017-10-20] MEDS: NICOTINE 14MG/24HR PATCH TRANSDERM SCH (10:45)
[2017-10-20] MEDS: LOSARTAN 50 MG TAB PO SCH (10:45)
[2017-10-20] MEDS: GABAPENTIN 100 MG CAP PO SCH (10:45)
[2017-10-20] MEDS: HEPARIN SODIUM,PORCINE 5,000 UNIT/ML 1 ML VIAL SQ SCH ×2 (10:56→21:02)
--- NOTE | 2017-10-20 10:56 | P.CNOR ---
History of Present Illness - [facility] Consult date: 10/20/17 Consult reason: other (Diabetic foot wounds) History of present illness: This is a 57-year-old female with history of poorly controlled insulin- dependent diabetes with bilateral lower extremity neuropathy and obesity. She states that her granddaughter came over to help her pain and found a intact in her right shoe and noted wounds to the plantar aspect of her right foot. The patient states that the wound about her heel has been there for a while. She is not sure of the timeframe. She states that the wound to the ball of her foot has been present for about a week since finding the tack. She has minimal sensation to the bottom of the foot. She does admit to some tenderness to the dorsum of the foot. She denies any recent fever or chills. X-rays taken the emergency department revealed a small metallic foreign body in the soft tissue about the heel. White blood cell count on admission is 15.0, serum glucose is 491. Orthopedics is consulted for evaluation of the foot and possible removal of the foreign body. Past Medical History Past Medical History: COPD, Diabetes Mellitus, Eye Disorder, Fibromyalgia, Hyperlipidemia, Hypertension, Musculoskeletal Disorder, Neurologic Disorder, Osteoarthritis (OA), Pneumonia, Skin Disorder, Sleep Apnea/CPAP/BIPAP, Thyroid Disorder Additional Past Medical History / Comment(s): Current L heel ulcer, IDDM type II , diabetic neuropathy hands and feet bilaterally, TERRANCE no device, bilateral carpal tunnel, vertigo at times, AUGUSTINE bilaterally, macular degeneration bilaterally, hx. bronchitis, & pneumonias, sinus problems, bowel and bladder incont, UTIs. History of Any Multi-Drug Resistant Organisms: None Reported Past Surgical History: No Surgical Hx Reported Additional Past Surgical History / Comment(s): Colonoscopy, PICC line, Femoral stents inserted 2017 Past Anesthesia/Blood Transfusion Reactions: No Reported Reaction Past Psychological History: No Psychological Hx Reported Additional Psychological History / Comment(s): Denies suffering from any anxiety or depression Smoking Status: Heavy tobacco smoker Past Alcohol Use History: None Reported, Rare Additional Past Alcohol Use History / Comment(s): Pt started smoking in 1968 states smokes 2 packs a day Past Drug Use History: None Reported - Past Family History Mother Family Medical History: Cancer Additional Family Medical History / Comment(s): Mother at 69yrs of age of lung cancer. Father Family Medical History: Cancer Additional Family Medical History / Comment(s): Father at 60 yrs of age of mesothelioma. Brother(s) Family Medical History: Coronary Artery Disease (CAD) Sister(s) Family Medical History: Hypertension Daughter(s) Family Medical History: No Reported History Son(s) Family Medical History: No Reported History Medications and Allergies Home Medications Medication Instructions Recorded Confirmed Type Atorvastatin [Lipitor] 20 mg PO HS 11/30/15 10/19/17 History Gabapentin [Neurontin] 100 mg PO DAILY 03/27/16 10/19/17 History Losartan [Cozaar] 100 mg PO DAILY 03/27/16 10/19/17 History Levothyroxine Sodium [Synthroid] 100 mcg PO DAILY 04/13/16 10/19/17 History Aspirin 325 mg PO DAILY #90 tab 04/27/16 10/19/17 Rx Clopidogrel [Plavix] 75 mg PO DAILY #90 tab 04/27/16 10/19/17 Rx Diphenox-Atrop 2.5-0.025 mg 1 tab PO DAILY PRN 10/19/17 10/19/17 History [Lomotil] Insulin Aspart [NovoLOG Flexpen] 15 units SQ AC-TID 10/19/17 10/19/17 History Insulin Detemir [Levemir Flextouch] 50 unit SQ BID 10/19/17 10/19/17 History Allergies Allergy/AdvReac Type Severity Reaction Status Date / Time No Known Allergies Allergy Verified 10/19/17 16:32 Physical Examination This is a pleasant 57-year-old moderately obese female in no acute distress. She is alert and oriented 3. Exam of the lower extremities reveals erythema to the dorsum of the right foot. There is mild soft tissue swelling. Pedal pulse is not palpable. She cannot perceive light touch to the toes. There are no open wounds to the dorsum of the foot. There is a large plaque-like area to the lower leg. Evaluation of the plantar aspect of the foot reveals a small puncture wound about the distal aspect of the foot in the area of the third or fourth metatarsal head. There is minimal erythema to this area. There is another small puncture noted about the lateral heel. There is no erythema to this area. She has normal toe motion without difficulty or pain. The remainder of her musculoskeletal exam is unremarkable. Results X-rays of the right foot reveal no bony abnormality is. There is a small metallic foreign body noted about the lateral aspect of the heel which is fairly superficial. - Labs Labs: Abnormal Lab Results - Last 24 Hours (Table) 10/19/17 10/19/17 10/19/17 Range/Units 18:01 18:01 23:02 WBC 15.0 H (3.8-10.6) k/uL MCHC (31.0-37.0) g/dL Neutrophils # 11.8 H (1.3-7.7) k/uL Sodium 135 L (137-145) mmol/L Chloride 97 L (98-107) mmol/L BUN 29 H (7-17) mg/dL Creatinine (0.52-1.04) mg/dL Glucose 491 H (74-99) mg/dL POC Glucose (mg/dL) 330 H (75-99) mg/dL Calcium (8.4-10.2) mg/dL Alkaline Phosphatase 177 H (38-126) U/L Albumin 3.1 L (3.5-5.0) g/dL 10/20/17 10/20/17 10/20/17 Range/Units 07:04 07:04 07:14 WBC 13.5 H (3.8-10.6) k/uL MCHC 30.6 L (31.0-37.0) g/dL Neutrophils # 10.7 H (1.3-7.7) k/uL Sodium 136 L (137-145) mmol/L Chloride (98-107) mmol/L BUN 28 H (7-17) mg/dL Creatinine 1.27 H (0.52-1.04) mg/dL Glucose 313 H (74-99) mg/dL POC Glucose (mg/dL) 326 H (75-99) mg/dL Calcium 8.2 L (8.4-10.2) mg/dL Alkaline Phosphatase (38-126) U/L Albumin (3.5-5.0) g/dL H & H 10/19/17 10/20/17 Range/Units 18:01 07:04 Hgb 14.0 12.3 (11.4-16.0) gm/dL Hct 44.9 40.2 (34.0-46.0) % Result Diagrams: 10/20/17 07:04 10/20/17 07:04 Assessment and Plan (1) Diabetic foot infection Current Visit: Yes Status: Acute Code(s): E11.628 - TYPE 2 DIABETES MELLITUS WITH OTHER SKIN COMPLICATIONS; L08.9 - LOCAL INFECTION OF THE SKIN AND SUBCUTANEOUS TISSUE, UNSP SNOMED Code(s): 328793594 (2) Retained foreign body of foot Current Visit: Yes Status: Acute Code(s): M79.5 - RESIDUAL FOREIGN BODY IN SOFT TISSUE SNOMED Code(s): 737501550 Plan: The clinical and x-ray findings are discussed the patient and with nursing staff. With the patient's significantly compromised peripheral circulation, it is recommended she be evaluated by vascular surgery. I would prefer that vascular surgery 10 to her diabetic foot wounds. If they would like orthopedics to remove the metallic foreign body, we may do so after a vascular evaluation and recommendations. I have consulted Dr. Zhou for evaluation and treatment of her right foot diabetic wounds.
[2017-10-20 12:41] LABS: Glucose,Whole Blood 370 mg/dL (75-99)
[2017-10-20] MEDS: VANCOMYCIN 1,750 MG in SODIUM CHLORIDE 0.9% 500 ML IVPB SCH (15:45)
[2017-10-20 17:20] LABS: Glucose,Whole Blood 224 mg/dL (75-99)
--- NOTE | 2017-10-20 19:59 | PN ---
PROGRESS NOTE DATE OF SERVICE: 10/20/2017 This 57-year-old woman was admitted with acute cellulitis on the foot, also foreign body. The patient is being closely monitored. Patient also had features of sepsis present on admission. The patient was seen by Orthopedic surgery and recommended vascular surgery evaluation because the patient had significantly compromised peripheral circulation. The venous Doppler has been done and showed no evidence of DVT. PAST MEDICAL HISTORY: Reviewed. REVIEW OF SYSTEMS: Cardiovascular system: No angina. Respiratory system: As mentioned earlier. GI: No nausea. : No dysuria. Nervous system: As mentioned earlier. CURRENT MEDICATIONS: 1. Tylenol p.r.n. 2. Spencer 5 mg q.6h p.r.n. 3. Xanax 0.5 t.i.d. 4. Lipitor 20 mg q.h.s. 5. Lomotil 1 mg daily. 6. Neurontin. 7. NovoLog. 8. Cozaar. 9. Narcan. 10.Habitrol 14. 11.Protonix. 12.Zosyn. 13.Vancomycin. PHYSICAL EXAM: Patient is alert, oriented x3. Pulse 82, blood pressure 130/70, respirations 16, temperature 97.4, pulse ox 98% room air HEENT: Conjunctivae normal. Oral mucosa moist. NECK: No jugular venous distention. No lymph nodes CARDIOVASCULAR SYSTEM: S1, S2. RESPIRATORY: Diminished breath sounds at the bases. A few scattered rhonchi. ABDOMEN: Soft. LEGS; Significant swelling of the right leg. Tenderness on the right sole. NERVOUS SYSTEM: No focal deficits. LAB STUDIES: WBC 13.5, sodium 136, creatinine is 1.27. Otherwise, glucose 326 and 370. ASSESSMENT: 1. Acute cellulitis of the right foot with soft tissue foreign body with diabetic foot and possible sepsis present on admission. 2. Increased WBC. 3. Hyponatremia. 4. Diabetes type 2, uncontrolled with hyperglycemia. 5. Chronic obstructive pulmonary disease. 6. Fibromyalgia. 7. Hypertension. 8. Hyperlipidemia. 9. History of DJD. 10.History of pneumonia. 11.History of sleep apnea. 12.History of left heel ulcer. 13.Obesity with body mass index of 42.5. 14.Anxiety and depression. 15.History of nicotine dependence: 16.Full code. RECOMMENDATIONS AND DISCUSSION: In this 57-year-old woman who presented with multiple complex medical issues, we will monitor the patient closely, continue the current medications, continue current treatment. Otherwise, I would increase the dose of Levemir to 60 twice daily and continue with mealtime insulin coverage also. Otherwise, vascular surgery consultation. Continue the antibiotics. The prognosis is extremely guarded because of multiple complex medical issues. Further recommendations to follow. Continue the rest of medications including DVT prophylaxis. MMODL / IJN: [id number] /
[2017-10-20 20:55] LABS: Glucose,Whole Blood 193 mg/dL (75-99)
[2017-10-20] MEDS ORDERED: INSULIN DETEMIR 100 UNIT/ML 10 ML VIAL SQ SCH (21:00)
[2017-10-20] MEDS: ATORVASTATIN 20 MG TAB PO SCH (21:02)
[2017-10-20] MEDS: SODIUM CHLORIDE 0.9% 1,000 ML IV SCH (21:02)
--- NOTE | 2017-10-20 23:44 | P.CONS ---
History of Present Illness - Reason for Consult Consult date: 10/20/17 - Chief Complaint Right foot pain - History of Present Illness 57-year-old female who superobesity and diabetes mellitus type 2 that is poorly controlled, last hemoglobin A1c was 13.4. Presents with ulceration to her right foot that has become painful. In the emergency center standard x- rays were obtained during evidence of a foreign body into the right heel, as well as a significant cellulitis. Because of this she is admitted and infectious diseases and surgical consults are requested. The patient is quite uncomfortable because of the ulcerations. She relates they have markedly worse in the last week and despite care at home have not improved. She's had some fever and chill at home and has had rapid decline in overall status which is why she sought care. In the emergency center there is evidence of the ulceration as well as leukocytosis and increased creatinine. She is constantly admitted and further interventions are being arranged. Review of Systems 57-year-old woman with superobesity is uncomfortable at this time HEENT:Denies headache or acute visual change. Denies sinus or mouth discomforts. Denies neck stiffness or pain. Denies significant oral cavity pain. Denies difficulty on swallowing. Dentition is poor for age Lungs: Denies significant shortness of breath, cough, sputum production, or hemoptysis. Cardiovascular: Denies significant shortness of breath, chest pain, chest wall pain, orthopnea, dyspnea on exertion, syncope Gastrointestinal:Denies nausea, vomiting, diarrhea, constipation, hematemesis, melena, hematochezia. No no significant change of bowel habit noticed. Musculoskeletal: Has difficulties with chronic back and lower extremity pain Skin: As per the HPI ulceration to the right foot at the heel and first metatarsal Neuro: Denies headache or visual change. Denies any new onset weakness or difficulty with ambulation. Denies falls or seizures. Psychiatric: Chronic anxiety and depression Endocrine: Chronic fatigue and weight gain Past Medical History Past Medical History: COPD, Diabetes Mellitus, Eye Disorder, Fibromyalgia, Hyperlipidemia, Hypertension, Musculoskeletal Disorder, Neurologic Disorder, Osteoarthritis (OA), Pneumonia, Skin Disorder, Sleep Apnea/CPAP/BIPAP, Thyroid Disorder Additional Past Medical History / Comment(s): Current L heel ulcer, IDDM type II , diabetic neuropathy hands and feet bilaterally, TERRANCE no device, bilateral carpal tunnel, vertigo at times, ALUTIIQ bilaterally, macular degeneration bilaterally, hx. bronchitis, & pneumonias, sinus problems, bowel and bladder incont, UTIs. History of Any Multi-Drug Resistant Organisms: None Reported Past Surgical History: No Surgical Hx Reported Additional Past Surgical History / Comment(s): Colonoscopy, PICC line, Femoral stents inserted 2017 Past Anesthesia/Blood Transfusion Reactions: No Reported Reaction Past Psychological History: No Psychological Hx Reported Additional Psychological History / Comment(s): Single and lives with children. No animals in the home. Chronic heavy tobacco smoker. Denies alcohol or recreational drug use. No experience. No travel history. Does not work outside of the home Smoking Status: Heavy tobacco smoker Past Alcohol Use History: None Reported, Rare Additional Past Alcohol Use History / Comment(s): Pt started smoking in 1968 states smokes 2 packs a day Past Drug Use History: None Reported - Past Family History Mother Family Medical History: Cancer Additional Family Medical History / Comment(s): Mother at 69yrs of age of lung cancer. Father Family Medical History: Cancer Additional Family Medical History / Comment(s): Father at 60 yrs of age of mesothelioma. Brother(s) Family Medical History: Coronary Artery Disease (CAD) Sister(s) Family Medical History: Hypertension Daughter(s) Family Medical History: No Reported History Son(s) Family Medical History: No Reported History Medications and Allergies Home Medications and Allergies Comment(s): Current Medications Acetaminophen (Tylenol Tab) 650 mg PO Q6HR PRN PRN Reason: Mild Pain or Fever > 100.5 Hydrocodone Bitart/Acetaminophen ([place] 5-325) 1 each PO Q6HR PRN PRN Reason: Pain Last Admin: 10/20/17 19:32 Dose: 1 each Alprazolam (Xanax) 0.25 mg PO TID PRN PRN Reason: Anxiety Atorvastatin Calcium (Lipitor) 20 mg PO HS [facility] Last Admin: 10/20/17 21:02 Dose: 20 mg Diphenoxylate HCl/Atropine (Lomotil) 1 each PO DAILY PRN PRN Reason: Diarrhea Gabapentin (Neurontin) 100 mg PO DAILY [facility] Last Admin: 10/20/17 10:45 Dose: 100 mg Heparin Sodium (Porcine) (Heparin) 5,000 unit SQ Q12HR [facility] Last Admin: 10/20/17 21:02 Dose: 5,000 unit Piperacillin/Tazobactam/ (Dextrose 3.375 gm/ IV Solution) 50 mls @ 12.5 mls/hr IVPB Q8H [facility] [place] Last Admin: 10/20/17 21:02 Dose: 12.5 mls/hr Sodium Chloride (Saline 0.9%) 1,000 mls @ 20 mls/hr IV .Q24H [facility] [place] Last Admin: 10/20/17 21:02 Dose: 20 mls/hr Vancomycin HCl 1,750 mg/ (Sodium Chloride) 500 mls @ 167 mls/hr IVPB Q16H [facility] [place] Last Admin: 10/20/17 15:45 Dose: 167 mls/hr Insulin Aspart (Novolog) 0 unit SQ ACHS [facility] [place]; Protocol Last Admin: 10/20/17 21:02 Dose: 3 unit Insulin Aspart (Novolog) 15 unit SQ AC-TID [facility] [place] Last Admin: 10/20/17 17:50 Dose: 15 unit Insulin Detemir (Levemir) 60 unit SQ BID [facility] [place] Last Admin: 10/20/17 21:03 Dose: 60 unit Levothyroxine Sodium (Synthroid) 100 mcg PO DAILY@0600 [facility] [place] Last Admin: 10/20/17 05:38 Dose: 100 mcg Losartan Potassium (Cozaar) 100 mg PO DAILY [facility] [place] Last Admin: 10/20/17 10:45 Dose: 100 mg Morphine Sulfate (Morphine Sulfate (Inj)) 2 mg IVP Q4H PRN PRN Reason: Pain/Discomfort Morphine Sulfate (Morphine Sulfate (Inj)) 4 mg IVP Q4HR PRN PRN Reason: Pain Naloxone HCl (Narcan) 0.2 mg IV Q2M PRN PRN Reason: Opioid Reversal Nicotine (Habitrol 14mg/24hr Patch) 1 patch TRANSDERM DAILY [facility] [place] Last Admin: 10/20/17 10:45 Dose: Not Given Pantoprazole Sodium (Protonix) 40 mg PO AC-BRKFST [facility] [place] Last Admin: 10/20/17 07:46 Dose: 40 mg Silver Sulfadiazine (Silvadene Cream) 1 applic TOPICAL BID [facility] [place] Last Admin: 10/20/17 21:03 Dose: 1 applic Temazepam (Restoril) 15 mg PO HS PRN PRN Reason: Insomnia Home Medications Medication Instructions Recorded Confirmed Type Atorvastatin [Lipitor] 20 mg PO HS 11/30/15 10/19/17 History Gabapentin [Neurontin] 100 mg PO DAILY 03/27/16 10/19/17 History Losartan [Cozaar] 100 mg PO DAILY 03/27/16 10/19/17 History Levothyroxine Sodium [Synthroid] 100 mcg PO DAILY 04/13/16 10/19/17 History Aspirin 325 mg PO DAILY #90 tab 04/27/16 10/19/17 Rx Clopidogrel [Plavix] 75 mg PO DAILY #90 tab 04/27/16 10/19/17 Rx Diphenox-Atrop 2.5-0.025 mg 1 tab PO DAILY PRN 10/19/17 10/19/17 History [Lomotil] Insulin Aspart [NovoLOG Flexpen] 15 units SQ AC-TID 10/19/17 10/19/17 History Insulin Detemir [Levemir Flextouch] 50 unit SQ BID 10/19/17 10/19/17 History Allergies Allergy/AdvReac Type Severity Reaction Status Date / Time No Known Allergies Allergy Verified 10/19/17 16:32 Physical Exam Vitals: Vital Signs Temp Pulse Pulse Resp BP Pulse Ox 10/20/17 19:00 99.0 F 88 14 150/84 95 10/20/17 15:00 98.4 F 89 16 152/76 93 L 10/20/17 12:10 97.4 F L 82 92 16 131/73 10/20/17 03:57 97.8 F 86 16 135/71 98 10/20/17 00:00 18 Intake and Output 10/20/17 10/20/17 10/21/17 14:59 22:59 06:59 Intake Total 402 Balance 402 Intake: Intake, IV Titration 180 Amount Piperacillin-Tazobactam 3 50 .375 gm In Dextrose/Water 1 50ml.bag @ 12.5 mls/hr IVPB ONCE ONE Rx#: [id number] Sodium Chloride 0.9% 1, 130 000 ml @ 20 mls/hr IV . Q24H [facility] Rx#:[id number] Oral 222 Pleasant 57-year-old woman who has superobesity and is uncomfortable because of the pain and swelling to her right foot HEENT: Anicteric conjunctiva are pink and moist nasal mucosa grossly intact without significant lesions, there is no thrush. Neck: The neck is supple without significant lymphadenopathy or thyromegaly. Lungs: There is symmetrical air entry, expiratory wheezes throughout the lung ruth, no second bronchial sounds no sniffy and dullness or egophony Heart: Regular rate and rhythm with an audible S1-S2, no S3 loud S4. There is no significant murmur click or rub, PMI was nondisplaced. Abdomen: Obese, Positive bowel sounds soft and nontender without palpable masses or organomegaly. There was no guarding or rebound. Extremities: The upper extremities are intact with the IV site without difficulty. The lower extremities have some chronic venous stasis and chronic edema. Left foot has healing of the prior left heel ulceration. Right foot shows evidence of the plantar ulceration below the first metatarsal head measuring at 1 x 1 x 0.2 this extremely tender and painful with surrounding erythema and induration. The heel has an ulceration approximately 0.8 0.8 x 0.2 that is some scant drainage is also tender there some surrounding erythema. There swelling to the foot with some ascending erythema about the ankle. There is no severe lymphadenopathy to the right groin no other sniffy lymph nodes are abnormally enlarged Neuro: Awake alert oriented to person place and time. There are no acute new gross focal sensory motor deficits. Results CBC & Chem 7: 10/20/17 07:04 10/20/17 07:04 Labs: Abnormal Lab Results - Last 24 Hours (Table) 10/20/17 10/20/17 10/20/17 Range/Units 07:04 07:04 07:14 WBC 13.5 H (3.8-10.6) k/uL MCHC 30.6 L (31.0-37.0) g/dL Neutrophils # 10.7 H (1.3-7.7) k/uL Sodium 136 L (137-145) mmol/L BUN 28 H (7-17) mg/dL Creatinine 1.27 H (0.52-1.04) mg/dL Glucose 313 H (74-99) mg/dL POC Glucose (mg/dL) 326 H (75-99) mg/dL Calcium 8.2 L (8.4-10.2) mg/dL 10/20/17 10/20/17 10/20/17 Range/Units 12:39 17:18 20:52 WBC (3.8-10.6) k/uL MCHC (31.0-37.0) g/dL Neutrophils # (1.3-7.7) k/uL Sodium (137-145) mmol/L BUN (7-17) mg/dL Creatinine (0.52-1.04) mg/dL Glucose (74-99) mg/dL POC Glucose (mg/dL) 370 H 224 H 193 H (75-99) mg/dL Calcium (8.4-10.2) mg/dL Microbiology - Last 24 Hours (Table) 10/19/17 18:01 Blood Culture - Preliminary Blood No Growth after 24 hours 10/20/17 11:00 Urine Culture - Preliminary Urine,Voided Laboratory Results WBC 13.5 k/uL (3.8-10.6) H 10/20/17 07:04 RBC 4.11 m/uL (3.80-5.40) 10/20/17 07:04 Hgb 12.3 gm/dL (11.4-16.0) 10/20/17 07:04 Hct 40.2 % (34.0-46.0) 10/20/17 07:04 MCV 97.9 fL (80.0-100.0) 10/20/17 07:04 MCH 30.0 pg (25.0-35.0) 10/20/17 07:04 MCHC 30.6 g/dL (31.0-37.0) L 10/20/17 07:04 RDW 14.0 % (11.5-15.5) 10/20/17 07:04 Plt Count 225 k/uL (150-450) 10/20/17 07:04 Neutrophils % 79 % 10/20/17 07:04 Lymphocytes % 13 % 10/20/17 07:04 Monocytes % 5 % 10/20/17 07:04 Eosinophils % 1 % 10/20/17 07:04 Basophils % 1 % 10/20/17 07:04 Neutrophils # 10.7 k/uL (1.3-7.7) H 10/20/17 07:04 Lymphocytes # 1.7 k/uL (1.0-4.8) 10/20/17 07:04 Monocytes # 0.7 k/uL (0-1.0) 10/20/17 07:04 Eosinophils # 0.2 k/uL (0-0.7) 10/20/17 07:04 Basophils # 0.1 k/uL (0-0.2) 10/20/17 07:04 Hypochromasia Slight 10/20/17 07:04 Sodium 136 mmol/L (137-145) L 10/20/17 07:04 Potassium 4.6 mmol/L (3.5-5.1) 10/20/17 07:04 Chloride 102 mmol/L (98-107) 10/20/17 07:04 Carbon Dioxide 28 mmol/L (22-30) 10/20/17 07:04 Anion Gap 6 mmol/L 10/20/17 07:04 BUN 28 mg/dL (7-17) H 10/20/17 07:04 Creatinine 1.27 mg/dL (0.52-1.04) H 10/20/17 07:04 Est GFR (CKD-EPI)AfAm 54 (>60 ml/min/1.73 sqM) 10/20/17 07:04 Est GFR (CKD-EPI)NonAf 46 (>60 ml/min/1.73 sqM) 10/20/17 07:04 Glucose 313 mg/dL (74-99) H 10/20/17 07:04 POC Glucose (mg/dL) 193 mg/dL (75-99) H 10/20/17 20:52 POC Glu Electrical [employer] ID Gwendolyn Crenshaw 10/20/17 20:52 Plasma Lactic Acid Madhu 1.5 mmol/L (0.7-2.0) 10/19/17 18:01 Calcium 8.2 mg/dL (8.4-10.2) L 10/20/17 07:04 Total Bilirubin 0.4 mg/dL (0.2-1.3) 10/19/17 18:01 AST 23 U/L (14-36) 10/19/17 18:01 ALT 29 U/L (9-52) 10/19/17 18:01 Alkaline Phosphatase 177 U/L (38-126) H 10/19/17 18:01 Total Protein 6.7 g/dL (6.3-8.2) 10/19/17 18:01 Albumin 3.1 g/dL (3.5-5.0) L 10/19/17 18:01 Microbiology 10/19/17 18:01 Blood Blood Culture - Preliminary No Growth after 24 hours 10/20/17 11:00 Urine,Voided Urine Culture - Preliminary Assessment and Plan (1) Diabetes mellitus type 2, uncontrolled, with complications Current Visit: No Status: Acute Code(s): E11.8 - TYPE 2 DIABETES MELLITUS WITH UNSPECIFIED COMPLICATIONS; E11.65 - TYPE 2 DIABETES MELLITUS WITH HYPERGLYCEMIA SNOMED Code(s): 296632577 (2) Sepsis Current Visit: Yes Status: Acute Code(s): A41.9 - SEPSIS, UNSPECIFIED ORGANISM SNOMED Code(s): 95344027 (3) Diabetic ulcer of right foot associated with diabetes mellitus due to underlying condition, with fat layer exposed Narrative/Plan: With a several-day history of increasing pain to the right foot with evidence of ulcerations with some drainage. She has diabetes with uncontrolled blood sugars this seemed to be worse than usual. She feels very poorly with sensations of fever and chill. At admission there is evidence of significant cellulitis of the foot and concerns to a foreign body at the right heel. Consuls with orthopedic were requested in the workup has been deferred to the vascular surgeon to further evaluate her vascular status and potentially debrided and remove any foreign body from the right heel. If surgical approaches does occur would also likely have debridement of the ulceration to the plantar surface first metatarsal head. Antibiotic therapy is currently with vancomycin and Zosyn which is appropriate based on her history. She believes she is up-to-date with her tetanus vaccine. Local wound care with Silvadene has been requested twice a day until she's been evaluated by the surgeons and plans are into place. Is evidence of an elevated creatinine which will be monitored closely also here. leukocytosis due to sepsis from the infection to the foot. Current Visit: Yes Status: Acute Code(s): E08.621 - DIABETES MELLITUS DUE TO UNDERLYING CONDITION W FOOT ULCER; L97.512 - NON-PRS CHRONIC ULCER OTH PRT RIGHT FOOT W FAT LAYER EXPOSED SNOMED Code(s): 624314406 (4) Leukocytosis Current Visit: No Status: Acute Code(s): D72.829 - ELEVATED WHITE BLOOD CELL COUNT, UNSPECIFIED SNOMED Code(s): 452847549
[2017-10-21] MEDS: PIPERACILLIN-TAZOBACTAM 3.375 GM in DEXTROSE/WATER 1 50ML.BAG IVPB SCH ×3 (04:47→20:47)
[2017-10-21] MEDS: LEVOTHYROXINE 50 MCG TAB PO SCH (06:04)
[2017-10-21 06:52] LABS: Glucose,Whole Blood 116 mg/dL (75-99)
[2017-10-21 07:33] LABS: Basophils # (A) 0.1 k/uL (0-0.2); Basophils % (A) 1 %; Eosinophils # (A) 0.3 k/uL (0-0.7); Eosinophils % (A) 2 %; HCT 38.4 % (34.0-46.0); Hypochromasia Slight; Lymphocytes # (A) 2.1 k/uL (1.0-4.8); Lymphocytes % (A) 14 %; MCH 30.2 pg (25.0-35.0); MCHC 31.2 g/dL (31.0-37.0); MCV 96.9 fL (80.0-100.0); Mean Platelet Volume 8.1; Monocytes # (A) 0.8 k/uL (0-1.0); Monocytes % (A) 5 %; Neutrophils % (A) 77 %; Platelet Count 259 k/uL (150-450); RBC 3.96 m/uL (3.80-5.40); WBC 14.3 k/uL (3.8-10.6)
[2017-10-21 07:44] LABS: Calcium 8.4 mg/dL (8.4-10.2)
[2017-10-21] MEDS: INSULIN ASPART 100 UNIT/ML 1 ML 10 ML VIAL SQ SCH ×7 (08:01→20:48)
[2017-10-21] MEDS: HEPARIN SODIUM,PORCINE 5,000 UNIT/ML 1 ML VIAL SQ SCH ×2 (08:20→20:48)
[2017-10-21] MEDS: LOSARTAN 50 MG TAB PO SCH (08:21)
[2017-10-21] MEDS: GABAPENTIN 100 MG CAP PO SCH (08:21)
[2017-10-21] MEDS: PANTOPRAZOLE 40 MG TABLET PO SCH (08:21)
[2017-10-21] MEDS: INSULIN DETEMIR 100 UNIT/ML 10 ML VIAL SQ SCH ×2 (08:45→20:48)
[2017-10-21] MEDS: NICOTINE 14MG/24HR PATCH TRANSDERM SCH (08:54)
--- NOTE | 2017-10-21 09:42 | P.PN ---
Subjective Progress Note Date: 10/21/17 Principal diagnosis: Diabetic foot ulcerations right foot. Metallic foreign body right heel. Poorly controlled insulin-dependent diabetes. This is a 57-year-old female who we are following regarding her right foot. The patient is evaluated by Dr. Zhou today. I am present during her vascular evaluation. The patient continues to complain of pain about the metatarsal head region on the plantar aspect of her foot. Objective - Vital Signs Vital signs: Vital Signs Temp 99.8 F H 10/21/17 07:56 Pulse 84 10/21/17 07:56 Resp 18 10/21/17 07:56 BP 164/80 10/21/17 07:56 Pulse Ox 92 L 10/20/17 23:25 Intake & Output 10/20/17 10/21/17 10/21/17 18:59 06:59 18:59 Intake Total 402 290 Balance 402 290 Intake: Intake, IV Titration 180 290 Amount Piperacillin-Tazobactam 3 50 .375 gm In Dextrose/Water 1 50ml.bag @ 12.5 mls/hr IVPB ONCE ONE Rx#: [id number] Piperacillin-Tazobactam 3 50 .375 gm In Dextrose/Water 1 50ml.bag @ 12.5 mls/hr IVPB Q8H [facility] Rx#: [id number] Sodium Chloride 0.9% 1, 130 240 000 ml @ 20 mls/hr IV . Q24H [facility] Rx#:[id number] Oral 222 Other: Voiding Method Diaper Incontinent # Voids 1 - Exam This is a 57-year-old female in no acute distress. She is alert and oriented 3. Exam of the right foot is essentially unchanged. She continues to have significant tenderness to the metatarsal head region of the plantar aspect of her foot. There is no active drainage in this area. There is callus formation noted. She has minimal tenderness to the heel with palpation. Doppler was used to assess for pulse. There is a faintly audible posterior tibial pulse and no audible or palpable pedal pulse. - Labs CBC & Chem 7: 10/21/17 05:57 10/21/17 05:57 Labs: Abnormal Lab Results - Last 24 Hours (Table) 10/20/17 10/20/17 10/20/17 Range/Units 12:39 17:18 20:52 WBC (3.8-10.6) k/uL Neutrophils # (1.3-7.7) k/uL BUN (7-17) mg/dL Creatinine (0.52-1.04) mg/dL Glucose (74-99) mg/dL POC Glucose (mg/dL) 370 H 224 H 193 H (75-99) mg/dL 10/21/17 10/21/17 10/21/17 Range/Units 05:57 05:57 06:51 WBC 14.3 H (3.8-10.6) k/uL Neutrophils # 11.0 H (1.3-7.7) k/uL BUN 29 H (7-17) mg/dL Creatinine 1.36 H (0.52-1.04) mg/dL Glucose 109 H (74-99) mg/dL POC Glucose (mg/dL) 116 H (75-99) mg/dL Microbiology - Last 24 Hours (Table) 10/19/17 18:01 Blood Culture - Preliminary Blood No Growth after 24 hours 10/20/17 11:00 Urine Culture - Preliminary Urine,Voided Assessment and Plan (1) Diabetic foot infection Current Visit: Yes Status: Acute Code(s): E11.628 - TYPE 2 DIABETES MELLITUS WITH OTHER SKIN COMPLICATIONS; L08.9 - LOCAL INFECTION OF THE SKIN AND SUBCUTANEOUS TISSUE, UNSP SNOMED Code(s): 714007038 (2) Retained foreign body of foot Current Visit: Yes Status: Acute Code(s): M79.5 - RESIDUAL FOREIGN BODY IN SOFT TISSUE SNOMED Code(s): 915422416 Plan: The clinical and x-ray findings are discussed the patient and with Dr. Zhou. Vascular we will assume care at this point. Dr. Zhou will be managing with IV antibiotics. At this point it does not appear that her foreign-body is the source of her pain. Dr. Zhou will let us know if he feels she needs surgical removal of foreign body. We will follow peripherally.
--- NOTE | 2017-10-21 09:49 | CONS ---
CONSULTATION This is a 57-year-old pleasant female. The patient is known to me from the wound clinic in the past. The patient came to the emergency room with right foot has become painful. The patient had an x-ray of the foot which showed a 3 mm density present at the plantar aspect of the calcaneus. The patient also has a callus formation noted at the plantar aspect of the foot. She has been treated with Medihoney gel at home. There is also some redness noted on the dorsal aspect of the foot. The patient was seen by Dr. Juan Holliday and started on antibiotic and ordered a bone scan. MEDICAL HISTORY: History of COPD, diabetes, history of fibromyalgia, hyperlipidemia, hypertension, osteoarthritis, sleep apnea. SURGICAL HISTORY: Patient had a vascular workup by Dr. Staton last year and patient had a stent placed in her left leg. PHYSICAL EXAMINATION: The patient was seen in her room. Patient lying comfortably in bed. Chest is clear. First and second sounds are normal. Abdomen is soft. Femorals are 1+. The patient has a Doppler signal on posterior right foot. The right foot plantar aspect has some tenderness. There is a callus. No drainage noted from the callus. There is some soft tissue swelling of the dorsum aspect of the foot. Discussed with Orthopedics. They are not worried about it at this time for the small piece of foreign body at the calcaneus area which is nontender and the patient will wait for bone scan and continue IV antibiotic. She may need excision of the callus and deep culture. We will follow with you. I will discuss with Dr. Holliday. In the meantime, continue with IV antibiotic. We will wait for the bone scan report. MMODL / IJN: [id number] /
[2017-10-21] MEDS: VANCOMYCIN 1,750 MG in SODIUM CHLORIDE 0.9% 500 ML IVPB SCH (10:12)
[2017-10-21 12:01] LABS: Glucose,Whole Blood 148 mg/dL (75-99)
--- NOTE | 2017-10-21 13:02 | NM ---
EXAMINATION TYPE: NM bone 3 phase DATE OF EXAM: 10/21/2017 COMPARISON: Previous study dated 03/09/2016. HISTORY: Right foot silhouette is Triple phase bone scintigraphy was performed following the injection of 25.7 mCi Tc 99m MDP. Immedia te images and 3.5 hours post injection images acquired. FINDINGS: There is mild increased flow to the right foot. Pool images demonstrate increased activity in the reg ion of the right heel. Delayed static images show superficial activity in the region of the right rell l. No definite bony uptake is seen. IMPRESSION: FINDINGS MOST CONSISTENT WITH CELLULITIS.
[2017-10-21] MEDS: HYDROcodone/APAP 5-325MG 1 EACH TAB PO PRN (14:07)
--- NOTE | 2017-10-21 16:03 | PN ---
PROGRESS NOTE DATE OF SERVICE: 10/21/2017. INTERVAL HISTORY: This 57-year-old woman who was admitted with acute cellulitis of the foot, also had diabetic foot. The is also noted, but however, at this time Dr. Zhou is following the patient closely. Orthopedic Surgery is following the patient as well. No chest pain. No palpitations. No fever. The patient on broad IV antibiotics. PHYSICAL EXAM: Alert and oriented x3. Pulse is 84, blood pressure 160/80, respiration 18, temperature 99.8, pulse ox 90% on room air. HEENT: Conjunctivae normal. Oral mucosa moist. NECK: No jugular venous distention. No carotid bruit. No lymph node enlargement. CARDIOVASCULAR: S1, S2. RESPIRATORY: Breath sounds diminished in the bases. No rhonchi. ABDOMEN: Soft, nontender. LEGS: Cellulitis and redness present. NERVOUS SYSTEM: No focal deficits. LABS: WBC 14, hemoglobin is 12, creatinine is 1.36. ASSESSMENT: 1. Acute cellulitis of the right foot with soft tissue foreign body with diabetic foot and possible sepsis present on admission. 2. Increased WBC. 3. Hyponatremia. 4. Diabetes type 2, uncontrolled with hyperglycemia. 5. Chronic obstructive pulmonary disease. 6. Fibromyalgia. 7. Hypertension. 8. Hyperlipidemia. 9. History of degenerative joint disease. 10.History of pneumonia. 11.History of sleep apnea. 12.History of left heel ulcer. 13.Obesity with body mass index of 42.5. 14.Anxiety and depression. 15.History of nicotine dependence. 16.FULL CODE. RECOMMENDATIONS AND DISCUSSION: I recommend to continue current management, symptomatic treatment and monitor blood sugars. Closely with Dr. Zhou. Guarded prognosis because of multiple complex medical issues. Further recommendations to follow. MMODL / IJN: [id number] / MTDD
[2017-10-21 17:16] LABS: Glucose,Whole Blood 133 mg/dL (75-99)
[2017-10-21 20:41] LABS: Glucose,Whole Blood 147 mg/dL (75-99)
[2017-10-21] MEDS: ATORVASTATIN 20 MG TAB PO SCH (20:48)
[2017-10-21] MEDS: SODIUM CHLORIDE 0.9% 1,000 ML IV SCH (21:45)
[2017-10-22] MEDS: VANCOMYCIN 1,750 MG in SODIUM CHLORIDE 0.9% 500 ML IVPB SCH ×2 (00:59→15:44)
[2017-10-22] MEDS: PIPERACILLIN-TAZOBACTAM 3.375 GM in DEXTROSE/WATER 1 50ML.BAG IVPB SCH ×3 (04:25→21:12)
[2017-10-22] MEDS: LEVOTHYROXINE 50 MCG TAB PO SCH (05:53)
[2017-10-22 06:49] LABS: Glucose,Whole Blood 139 mg/dL (75-99)
[2017-10-22 07:41] LABS: Basophils # (A) 0.1 k/uL (0-0.2); Basophils % (A) 0 %; Eosinophils # (A) 0.2 k/uL (0-0.7); Eosinophils % (A) 2 %; HCT 39.4 % (34.0-46.0); HGB 12.3 gm/dL (11.4-16.0); Hypochromasia Slight; Lymphocytes # (A) 1.6 k/uL (1.0-4.8); Lymphocytes % (A) 11 %; MCH 29.9 pg (25.0-35.0); MCHC 31.3 g/dL (31.0-37.0); MCV 95.6 fL (80.0-100.0); Mean Platelet Volume 7.6; Monocytes # (A) 0.7 k/uL (0-1.0); Monocytes % (A) 5 %; Neutrophils % (A) 82 %; Platelet Count 267 k/uL (150-450); RBC 4.12 m/uL (3.80-5.40); RDW 13.7 % (11.5-15.5); WBC 14.7 k/uL (3.8-10.6)
[2017-10-22 07:55] LABS: Calcium 8.8 mg/dL (8.4-10.2); Potassium 4.7 mmol/L (3.5-5.1)
[2017-10-22] MEDS: INSULIN ASPART 100 UNIT/ML 1 ML 10 ML VIAL SQ SCH ×7 (09:02→21:12)
[2017-10-22] MEDS: INSULIN DETEMIR 100 UNIT/ML 10 ML VIAL SQ SCH ×2 (09:03→21:12)
[2017-10-22] MEDS: LOSARTAN 50 MG TAB PO SCH (09:04)
[2017-10-22] MEDS: NICOTINE 14MG/24HR PATCH TRANSDERM SCH (09:05)
[2017-10-22] MEDS: HEPARIN SODIUM,PORCINE 5,000 UNIT/ML 1 ML VIAL SQ SCH ×2 (09:05→21:11)
[2017-10-22] MEDS: GABAPENTIN 100 MG CAP PO SCH (09:05)
[2017-10-22] MEDS: PANTOPRAZOLE 40 MG TABLET PO SCH (09:05)
[2017-10-22] MEDS: HYDROcodone/APAP 5-325MG 1 EACH TAB PO PRN ×2 (11:04→21:55)
[2017-10-22 11:30] LABS: Glucose,Whole Blood 119 mg/dL (75-99)
[2017-10-22 11:31] LABS: Hemoglobin A1C 13.5 % (4.0-6.0)
--- NOTE | 2017-10-22 12:32 | PN ---
PROGRESS NOTE DATE OF SERVICE: 10/22/2017 This is a 57-year-old woman who was admitted with acute cellulitis right foot with a soft tissue foreign body, being closely monitored. No chest pain. No palpitations. No fever. The blood sugar is better controlled today. PHYSICAL EXAM: Alert and oriented x3. Pulse 88, blood pressure 151/76, respiration 18, temperature 98.4, pulse ox 94% on room air. HEENT: Conjunctivae normal. Oral mucosa moist. Neck is no jugular venous distention. No lymph node enlargement, no carotid bruit. CARDIOVASCULAR: S1, S2, muffled. RESPIRATORY: Breath sounds diminished at the bases. No rhonchi. No crackles. ABDOMEN: Soft. LEGS: Right leg cellulitis. Tenderness present. NERVOUS SYSTEM: No focal deficits. LABS: WBC 14.7, INR is 1.2. The creatinine is 1.10. ASSESSMENT: 1. Acute cellulitis right foot with soft tissue foreign body with diabetic foot and possible sepsis, present on admission. 2. Increased WBC. 3. Hyponatremia. 4. Diabetes type 2, uncontrolled with hyperglycemia. 5. Chronic obstructive pulmonary disease. 6. Fibromyalgia. 7. Hypertension. 8. Hyperlipidemia. 9. History of degenerative joint disease. 10.History of pneumonia. 11.History of sleep apnea. 12.Left heel ulcer. 13.Obesity with body mass index of 42.5. 14.Anxiety, depression. 15.History of nicotine dependence. 16.FULL CODE: RECOMMENDATION: Recommend to continue current management. Continue medication with broad-spectrum IV antibiotics. Closely follow with Vascular Surgery. Possible surgery. Further recommendations to follow. Continue with the broad-spectrum and follow the cultures. MMODL / IJN: [id number] /
[2017-10-22] MEDS ORDERED: VANCOMYCIN TROUGH DUE 1 EACH MISC MISCELLANE ONE (15:00)
[2017-10-22 17:03] LABS: Glucose,Whole Blood 189 mg/dL (75-99)
[2017-10-22 20:01] LABS: Glucose,Whole Blood 183 mg/dL (75-99)
[2017-10-22] MEDS ORDERED: FUROSEMIDE 10 MG/ML 4 ML VIAL IV STA (20:51)
[2017-10-22] MEDS ORDERED: IPRATROPIUM-ALBUTEROL 3 ML NEB INHALATION PRN (20:52)
[2017-10-22] MEDS: ATORVASTATIN 20 MG TAB PO SCH (21:12)
--- NOTE | 2017-10-22 21:21 | XR ---
EXAMINATION TYPE: XR chest 1V portable DATE OF EXAM: 10/22/2017 COMPARISON: 10/20/2017 HISTORY: Chest pain TECHNIQUE: Single frontal view of the chest is obtained. FINDINGS: There is pulmonary interstitial and alveolar edema. Heart is probably enlarged. IMPRESSION: Pulmonary edema. This appears the same or slightly worse than last exam. This could be p ulmonary interstitial fibrosis with superimposed acute lung disease. Heart failure is not excluded.
[2017-10-22] MEDS: SODIUM CHLORIDE 0.9% 1,000 ML IV SCH (21:47)
[2017-10-23] MEDS: PIPERACILLIN-TAZOBACTAM 3.375 GM in DEXTROSE/WATER 1 50ML.BAG IVPB SCH ×3 (03:28→13:45)
[2017-10-23] MEDS: LEVOTHYROXINE 50 MCG TAB PO SCH ×2 (05:36→09:03)
[2017-10-23 07:18] LABS: Glucose,Whole Blood 173 mg/dL (75-99)
[2017-10-23] MEDS: IPRATROPIUM-ALBUTEROL 3 ML NEB INHALATION SCH ×4 (07:19→19:32)
[2017-10-23] MEDS: SYMBICORT 160-4.5 MCG INHALER INHALATION SCH ×2 (07:19→19:32)
[2017-10-23 08:41] LABS: Basophils # (A) 0.1 k/uL (0-0.2); Basophils % (A) 0 %; Eosinophils # (A) 0.2 k/uL (0-0.7); Eosinophils % (A) 1 %; HCT 36.1 % (34.0-46.0); HGB 10.8 gm/dL (11.4-16.0); Hypochromasia Marked; Lymphocytes # (A) 1.6 k/uL (1.0-4.8); Lymphocytes % (A) 10 %; MCH 29.8 pg (25.0-35.0); MCV 99.3 fL (80.0-100.0); Mean Platelet Volume 7.7; Monocytes # (A) 0.8 k/uL (0-1.0); Monocytes % (A) 5 %; Neutrophils # (A) 12.9 k/uL (1.3-7.7); Neutrophils % (A) 82 %; Platelet Count 274 k/uL (150-450); RBC 3.64 m/uL (3.80-5.40); RDW 13.9 % (11.5-15.5); WBC 15.7 k/uL (3.8-10.6)
[2017-10-23 08:56] LABS: Calcium 8.5 mg/dL (8.4-10.2); Potassium 4.6 mmol/L (3.5-5.1)
[2017-10-23] MEDS: INSULIN ASPART 100 UNIT/ML 1 ML 10 ML VIAL SQ SCH ×7 (09:03→22:34)
[2017-10-23] MEDS: HEPARIN SODIUM,PORCINE 5,000 UNIT/ML 1 ML VIAL SQ SCH ×2 (09:03→22:33)
[2017-10-23] MEDS: GABAPENTIN 100 MG CAP PO SCH (09:03)
[2017-10-23] MEDS: NICOTINE 14MG/24HR PATCH TRANSDERM SCH (09:03)
[2017-10-23] MEDS: LOSARTAN 50 MG TAB PO SCH (09:04)
[2017-10-23] MEDS: PANTOPRAZOLE 40 MG TABLET PO SCH (09:04)
[2017-10-23] MEDS: VANCOMYCIN 1,750 MG in SODIUM CHLORIDE 0.9% 500 ML IVPB SCH (09:12)
[2017-10-23 09:38] VITALS: BMI 42.5
[2017-10-23] MEDS ORDERED: DEXAMETHASONE SOD PHOSPHATE 10 MG/ML 1 ML VIAL IV ONE (09:56)
[2017-10-23] MEDS ORDERED: ONDANSETRON 4 MG/2 ML VIAL IVP ONE (09:56)
[2017-10-23] MEDS: INSULIN DETEMIR 100 UNIT/ML 10 ML VIAL SQ SCH ×2 (11:13→22:33)
[2017-10-23] MEDS: LACTATED RINGERS 1,000 ML IV SCH (11:20)
[2017-10-23 11:49] LABS: Glucose,Whole Blood 122 mg/dL (75-99)
[2017-10-23] MEDS ORDERED: IV FLUID CONTINUATION 1,000 ML IV ONE ×2 (12:50)
[2017-10-23] MEDS ORDERED: fentaNYL (PF) 50 MCG/ML 2 ML AMP ONE (13:30)
[2017-10-23] MEDS ORDERED: PROPOFOL 10 MG/ML 20 ML VIAL IV ONE (13:30)
[2017-10-23] MEDS ORDERED: MIDAZOLAM 2 MG/2 ML VIAL ONE (13:30)
[2017-10-23] MEDS ORDERED: LIDOCAINE 1% INJ 10MG/ML (20 ML MDV) SQ ONE (13:49)
[2017-10-23 14:40] LABS: Glucose,Whole Blood 137 mg/dL (75-99)
[2017-10-23 16:54] LABS: Glucose,Whole Blood 198 mg/dL (75-99)
[2017-10-23] MEDS ORDERED: FUROSEMIDE 10 MG/ML 4 ML VIAL IV STA (17:21)
--- NOTE | 2017-10-23 17:25 | P.PN ---
Subjective Progress Note Date: 10/23/17 Progress note being dictated for Dr. Eason> Interval history: This is a 57-year-old female admitted with acute right foot cellulitis with retained foreign body. Evaluated by orthopedics, vascular surgery and infectious disease. Bone scan reported consistent with cellulitis, increased activity in the region of the right heel without definite bony uptake seen. Scheduled for I&D/removal of foreign body today with vascular surgery. Maintained on broad-spectrum antibiotics. T-max 100, WBC 15.7. Sleepy, recently medicated for pain .CO2 20, creatinine 1.19. Chest x-ray yesterday reporting pulmonary edema, slightly worse possible pulmonary interstitial fibrosis with superimposed acute lung disease. Denies chest pain, palpitations or increased shortness of breath. Objective - Vital Signs Vital signs: Vital Signs Temp 98.6 F 10/23/17 13:15 Pulse 80 10/23/17 16:10 Resp 16 10/23/17 15:25 BP 158/72 10/23/17 14:52 Pulse Ox 96 10/23/17 14:52 Intake & Output 10/22/17 10/23/17 10/23/17 18:59 06:59 18:59 Intake Total 882 80 175 Output Total 10 Balance 882 80 165 Weight 108.862 kg Intake: IV 160 175 Sodium Chloride 0.9% 1, 160 000 ml @ 20 mls/hr IV . Q24H [facility] Rx#:[id number] Intake, IV Titration 80 Amount Sodium Chloride 0.9% 1, 80 000 ml @ 20 mls/hr IV . Q24H [facility] Rx#:[id number] Oral 722 Output: Estimated Blood Loss 10 Other: Voiding Method Incontinent Incontinent Incontinent # Voids 1 2 - Exam PHYSICAL EXAM: VITAL SIGNS: As above GENERAL: Sitting up in bed, no acute distress HEENT: Conjunctivae normal. eyes normal. Oral mucosa dry. NECK: No JVD. No thyroid enlargement. No LNs CARDIOVASCULAR: S1, S2 muffled. No murmur RESPIRATION: Breath sounds diminished in the bases. No rhonchi or crackles. No bronchial breathing. ABDOMEN: Soft, nontender . No guarding. no masses palpable. Bowel sounds heard. LEGS: Right lower extremity cellulitis, right plantar tenderness. Callus present without drainage , edema, Doppler PT pulse. Left heel, healed prior ulcer. PSYCHIATRY: Alert and oriented -3, mood and affect normal. NERVOUS SYSTEM: Cranial N 2-12 grossly normal. Moves all 4 limbs. Diffuse weakness No focal deficits. - Labs CBC & Chem 7: 10/23/17 07:35 10/23/17 07:35 Labs: Abnormal Lab Results - Last 24 Hours (Table) 10/22/17 10/22/17 10/23/17 Range/Units 17:02 19:57 07:03 WBC (3.8-10.6) k/uL RBC (3.80-5.40) m/uL Hgb (11.4-16.0) gm/dL MCHC (31.0-37.0) g/dL Neutrophils # (1.3-7.7) k/uL Sodium (137-145) mmol/L Carbon Dioxide (22-30) mmol/L BUN (7-17) mg/dL Creatinine (0.52-1.04) mg/dL Glucose (74-99) mg/dL POC Glucose (mg/dL) 189 H 183 H 173 H (75-99) mg/dL 10/23/17 10/23/17 10/23/17 Range/Units 07:35 07:35 11:43 WBC 15.7 H (3.8-10.6) k/uL RBC 3.64 L (3.80-5.40) m/uL Hgb 10.8 L (11.4-16.0) gm/dL MCHC 30.0 L (31.0-37.0) g/dL Neutrophils # 12.9 H (1.3-7.7) k/uL Sodium 136 L (137-145) mmol/L Carbon Dioxide 20 L (22-30) mmol/L BUN 26 H (7-17) mg/dL Creatinine 1.19 H (0.52-1.04) mg/dL Glucose 159 H (74-99) mg/dL POC Glucose (mg/dL) 122 H (75-99) mg/dL 10/23/17 10/23/17 Range/Units 14:36 16:51 WBC (3.8-10.6) k/uL RBC (3.80-5.40) m/uL Hgb (11.4-16.0) gm/dL MCHC (31.0-37.0) g/dL Neutrophils # (1.3-7.7) k/uL Sodium (137-145) mmol/L Carbon Dioxide (22-30) mmol/L BUN (7-17) mg/dL Creatinine (0.52-1.04) mg/dL Glucose (74-99) mg/dL POC Glucose (mg/dL) 137 H 198 H (75-99) mg/dL Microbiology - Last 24 Hours (Table) 10/19/17 18:01 Blood Culture - Preliminary Blood No Growth after 72 hours Assessment and Plan Assessment: 1. Acute cellulitis right foot with soft tissue foreign body, diabetic foot and possible sepsis present on admission 2. Leukocytosis secondary to the above 3. Hyponatremia 4. Diabetes mellitus type 2, better controlled 5. COPD 6. Sleep apnea 7. Obesity, BMI 42.5 8. Pulmonary edema, possible CHF, possible pulmonary interstitial fibrosis per cxr Plan: Continue on current medication regime ,monitoring and symptomatic treatment. I&D/foreign body removal scheduled for today with vascular surgery. Maintain IV antibiotics. Follow cultures closely. Close monitoring of Accu- Cheks and renal function with repeat labs ordered for a.m. possibly pulmonary edema, trial dose of Lasix, echo ordered. Further conditions to follow. The impression and plan of care has been dictated as directed. : I performed a history and examination of this patient, discussed the same with the dictator. I agree with the dictator's note ,documented as a scribe. Any additional findings or plans will be noted.
[2017-10-23 20:57] LABS: Glucose,Whole Blood 391 mg/dL (75-99)
[2017-10-23] MEDS: SODIUM CHLORIDE 0.9% 1,000 ML IV SCH (22:33)
--- NOTE | 2017-10-23 22:39 | P.PN ---
Subjective Progress Note Date: 10/23/17 57-year-old female who superobesity and diabetes mellitus type 2 that is poorly controlled, last hemoglobin A1c was 13.4. Presents with ulceration to her right foot that has become painful. In the emergency center standard x- rays were obtained during evidence of a foreign body into the right heel, as well as a significant cellulitis. Because of this she is admitted and infectious diseases and surgical consults are requested. The patient is quite uncomfortable because of the ulcerations. She relates they have markedly worse in the last week and despite care at home have not improved. She's had some fever and chill at home and has had rapid decline in overall status which is why she sought care. In the emergency center there is evidence of the ulceration as well as leukocytosis and increased creatinine. She is constantly admitted and further interventions are being arranged. 10/23/2017 the patient is being ready to go to the operating room for the debridement of her foot. She is denying into trouble such as fevers or chills. She's having some discomfort in they're working to improve her glucose control. It appears that [facility] and orthopedics will be coordinating surgical debridements. Objective - Vital Signs Vital signs: Vital Signs Temp 97.8 F 10/23/17 15:00 Pulse 82 10/23/17 19:48 Resp 16 10/23/17 15:25 BP 146/72 10/23/17 15:00 Pulse Ox 95 10/23/17 15:00 Intake & Output 10/23/17 10/23/17 10/24/17 06:59 18:59 06:59 Intake Total 80 175 240 Output Total 10 Balance 80 165 240 Weight 108.862 kg Intake: IV 175 Intake, IV Titration 80 Amount Sodium Chloride 0.9% 1, 80 000 ml @ 20 mls/hr IV . Q24H [facility] Rx#:[id number] Oral 240 Output: Estimated Blood Loss 10 Other: Voiding Method Incontinent Incontinent # Voids 1 2 2 - Exam leasant 57-year-old woman who has superobesity and is uncomfortable because of the pain and swelling to her right foot HEENT: Anicteric conjunctiva are pink and moist nasal mucosa grossly intact without significant lesions, there is no thrush. Neck: The neck is supple without significant lymphadenopathy or thyromegaly. Lungs: There is symmetrical air entry, expiratory wheezes throughout the lung ruth, no second bronchial sounds no sniffy and dullness or egophony Heart: Regular rate and rhythm with an audible S1-S2, no S3 loud S4. There is no significant murmur click or rub, PMI was nondisplaced. Abdomen: Obese, Positive bowel sounds soft and nontender without palpable masses or organomegaly. There was no guarding or rebound. Extremities: The upper extremities are intact with the IV site without difficulty. The lower extremities have some chronic venous stasis and chronic edema. Left foot has healing of the prior left heel ulceration. Right foot shows evidence of the plantar ulceration below the first metatarsal head measuring at 1 x 1 x 0.2 this extremely tender and painful with surrounding erythema and induration. The heel has an ulceration approximately 0.8 0.8 x 0.2 that is some scant drainage is also tender there some surrounding erythema. There swelling to the foot with some ascending erythema about the ankle. There is no severe lymphadenopathy to the right groin no other sniffy lymph nodes are abnormally enlarged Neuro: Awake alert oriented to person place and time. There are no acute new gross focal sensory motor deficits. - Labs CBC & Chem 7: 10/23/17 07:35 10/23/17 07:35 Labs: Abnormal Lab Results - Last 24 Hours (Table) 10/23/17 10/23/17 10/23/17 Range/Units 07:03 07:35 07:35 WBC 15.7 H (3.8-10.6) k/uL RBC 3.64 L (3.80-5.40) m/uL Hgb 10.8 L (11.4-16.0) gm/dL MCHC 30.0 L (31.0-37.0) g/dL Neutrophils # 12.9 H (1.3-7.7) k/uL Sodium 136 L (137-145) mmol/L Carbon Dioxide 20 L (22-30) mmol/L BUN 26 H (7-17) mg/dL Creatinine 1.19 H (0.52-1.04) mg/dL Glucose 159 H (74-99) mg/dL POC Glucose (mg/dL) 173 H (75-99) mg/dL 10/23/17 10/23/17 10/23/17 Range/Units 11:43 14:36 16:51 WBC (3.8-10.6) k/uL RBC (3.80-5.40) m/uL Hgb (11.4-16.0) gm/dL MCHC (31.0-37.0) g/dL Neutrophils # (1.3-7.7) k/uL Sodium (137-145) mmol/L Carbon Dioxide (22-30) mmol/L BUN (7-17) mg/dL Creatinine (0.52-1.04) mg/dL Glucose (74-99) mg/dL POC Glucose (mg/dL) 122 H 137 H 198 H (75-99) mg/dL 10/23/17 Range/Units 20:56 WBC (3.8-10.6) k/uL RBC (3.80-5.40) m/uL Hgb (11.4-16.0) gm/dL MCHC (31.0-37.0) g/dL Neutrophils # (1.3-7.7) k/uL Sodium (137-145) mmol/L Carbon Dioxide (22-30) mmol/L BUN (7-17) mg/dL Creatinine (0.52-1.04) mg/dL Glucose (74-99) mg/dL POC Glucose (mg/dL) 391 H (75-99) mg/dL Microbiology - Last 24 Hours (Table) 10/19/17 18:01 Blood Culture - Preliminary Blood No Growth after 96 hours Laboratory Results WBC 15.7 k/uL (3.8-10.6) H 10/23/17 07:35 RBC 3.64 m/uL (3.80-5.40) L 10/23/17 07:35 Hgb 10.8 gm/dL (11.4-16.0) L 10/23/17 07:35 Hct 36.1 % (34.0-46.0) 10/23/17 07:35 MCV 99.3 fL (80.0-100.0) 10/23/17 07:35 MCH 29.8 pg (25.0-35.0) 10/23/17 07:35 MCHC 30.0 g/dL (31.0-37.0) L 10/23/17 07:35 RDW 13.9 % (11.5-15.5) 10/23/17 07:35 Plt Count 274 k/uL (150-450) 10/23/17 07:35 Neutrophils % 82 % 10/23/17 07:35 Lymphocytes % 10 % 10/23/17 07:35 Monocytes % 5 % 10/23/17 07:35 Eosinophils % 1 % 10/23/17 07:35 Basophils % 0 % 10/23/17 07:35 Neutrophils # 12.9 k/uL (1.3-7.7) H 10/23/17 07:35 Lymphocytes # 1.6 k/uL (1.0-4.8) 10/23/17 07:35 Monocytes # 0.8 k/uL (0-1.0) 10/23/17 07:35 Eosinophils # 0.2 k/uL (0-0.7) 10/23/17 07:35 Basophils # 0.1 k/uL (0-0.2) 10/23/17 07:35 Hypochromasia Marked 10/23/17 07:35 Sodium 136 mmol/L (137-145) L 10/23/17 07:35 Potassium 4.6 mmol/L (3.5-5.1) 10/23/17 07:35 Chloride 105 mmol/L (98-107) 10/23/17 07:35 Carbon Dioxide 20 mmol/L (22-30) L 10/23/17 07:35 Anion Gap 11 mmol/L 10/23/17 07:35 BUN 26 mg/dL (7-17) H 10/23/17 07:35 Creatinine 1.19 mg/dL (0.52-1.04) H 10/23/17 07:35 Est GFR (CKD-EPI)AfAm 58 (>60 ml/min/1.73 sqM) 10/23/17 07:35 Est GFR (CKD-EPI)NonAf 50 (>60 ml/min/1.73 sqM) 10/23/17 07:35 Glucose 159 mg/dL (74-99) H 10/23/17 07:35 POC Glucose (mg/dL) 391 mg/dL (75-99) H 10/23/17 20:56 POC Glu Animal Care Attendant SHARRI Letitia Carroll 10/23/17 20:[address] Glu mg/dL 341 10/20/17 07:04 Hemoglobin A1c 13.5 % (4.0-6.0) H 10/20/17 07:04 Plasma Lactic Acid Madhu 1.5 mmol/L (0.7-2.0) 10/19/17 18:01 Calcium 8.5 mg/dL (8.4-10.2) 10/23/17 07:35 Total Bilirubin 0.4 mg/dL (0.2-1.3) 10/19/17 18:01 AST 23 U/L (14-36) 10/19/17 18:01 ALT 29 U/L (9-52) 10/19/17 18:01 Alkaline Phosphatase 177 U/L (38-126) H 10/19/17 18:01 Total Protein 6.7 g/dL (6.3-8.2) 10/19/17 18:01 Albumin 3.1 g/dL (3.5-5.0) L 10/19/17 18:01 Vancomycin Trough 15.4 ug/mL 10/22/17 15:03 Microbiology 10/19/17 18:01 Blood Blood Culture - Preliminary No Growth after 96 hours 10/20/17 11:00 Urine,Voided Urine Culture - Final Assessment and Plan (1) Diabetes mellitus type 2, uncontrolled, with complications Current Visit: No Status: Acute Code(s): E11.8 - TYPE 2 DIABETES MELLITUS WITH UNSPECIFIED COMPLICATIONS; E11.65 - TYPE 2 DIABETES MELLITUS WITH HYPERGLYCEMIA SNOMED Code(s): 032307857 (2) Sepsis Current Visit: Yes Status: Acute Code(s): A41.9 - SEPSIS, UNSPECIFIED ORGANISM SNOMED Code(s): 71742528 (3) Diabetic ulcer of right foot associated with diabetes mellitus due to underlying condition, with fat layer exposed Narrative/Plan: With a several-day history of increasing pain to the right foot with evidence of ulcerations with some drainage. She has diabetes with uncontrolled blood sugars this seemed to be worse than usual. She feels very poorly with sensations of fever and chill. At admission there is evidence of significant cellulitis of the foot and concerns to a foreign body at the right heel. Consuls with orthopedic were requested in the workup has been deferred to the vascular surgeon to further evaluate her vascular status and potentially debrided and remove any foreign body from the right heel. If surgical approaches does occur would also likely have debridement of the ulceration to the plantar surface first metatarsal head. Antibiotic therapy is currently with vancomycin and Zosyn which is appropriate based on her history. She believes she is up-to-date with her tetanus vaccine. Local wound care with Silvadene has been requested twice a day until she's been evaluated by the surgeons and plans are into place. Is evidence of an elevated creatinine which will be monitored closely also here. leukocytosis due to sepsis from the infection to the foot. 10/23/2017 the patient is being readied for operative care to her right foot ulcerations which included debridement of the callus and potential removal of foreign body. Bone scan was performed and shows evidence of no underlying osteomyelitis. The stent cultures will help direct the course of antibiotic therapy at discharge with local wound care and follow-up of the wound healing center with vascular surgery and this provider. We'll need specialty shoes for offloading Current Visit: Yes Status: Acute Code(s): E08.621 - DIABETES MELLITUS DUE TO UNDERLYING CONDITION W FOOT ULCER; L97.512 - NON-PRS CHRONIC ULCER OTH PRT RIGHT FOOT W FAT LAYER EXPOSED SNOMED Code(s): 166453301 (4) Leukocytosis Current Visit: No Status: Acute Code(s): D72.829 - ELEVATED WHITE BLOOD CELL COUNT, UNSPECIFIED SNOMED Code(s): 343864113
--- NOTE | 2017-10-23 23:27 | OP ---
OPERATIVE REPORT INDICATIONS: A 57-year-old white female, diagnosis is infected callus right foot plantar aspect and foreign body at the heel area. PROCEDURE: 1. Removal of foreign body. 2. Excision of the infected callus under local IV sedation. DESCRIPTION OF PROCEDURE: The patient was brought to the operating room. Lidocaine 1% was infiltrated into the right heel area. A small incision was made. There was a piece of metal which was removed. After that, the patient had infected callus on the plantar aspect of the right foot. An elliptical incision made, about 3 cm. Deepened through skin, fat and fascia. Necrotic callus was excised. Also surface tissue was also in infected and we did the debridement and all the necrotic tissue was removed. We took the deep culture and sent tissue for culture and sensitivity. There were also some fluctuation and redness noted in the mid plantar aspect of the right foot. An about 1 cm incision was made. No active necrosis was noted, but there was some fluid. The wound was copiously irrigated with hydrogen peroxide and saline. Dressing applied. Patient tolerated the procedure well. MMODL / IJN: [id number] /
[2017-10-24] MEDS: ATORVASTATIN 20 MG TAB PO SCH ×2 (00:10→21:25)
[2017-10-24] MEDS: VANCOMYCIN 1,750 MG in SODIUM CHLORIDE 0.9% 500 ML IVPB SCH ×2 (00:12→16:41)
[2017-10-24] MEDS: PIPERACILLIN-TAZOBACTAM 3.375 GM in DEXTROSE/WATER 1 50ML.BAG IVPB SCH ×3 (05:13→21:24)
[2017-10-24 07:13] LABS: Glucose,Whole Blood 334 mg/dL (75-99)
[2017-10-24] MEDS: SYMBICORT 160-4.5 MCG INHALER INHALATION SCH ×2 (08:24→20:17)
[2017-10-24] MEDS: PANTOPRAZOLE 40 MG TABLET PO SCH (08:24)
[2017-10-24] MEDS: LOSARTAN 50 MG TAB PO SCH (08:24)
[2017-10-24] MEDS: NICOTINE 14MG/24HR PATCH TRANSDERM SCH ×2 (08:24→08:35)
[2017-10-24] MEDS: HEPARIN SODIUM,PORCINE 5,000 UNIT/ML 1 ML VIAL SQ SCH ×2 (08:24→21:25)
[2017-10-24] MEDS: INSULIN ASPART 100 UNIT/ML 1 ML 10 ML VIAL SQ SCH ×7 (08:24→21:24)
[2017-10-24] MEDS: GABAPENTIN 100 MG CAP PO SCH (08:24)
[2017-10-24] MEDS: IPRATROPIUM-ALBUTEROL 3 ML NEB INHALATION SCH ×4 (08:24→20:17)
[2017-10-24] MEDS: INSULIN DETEMIR 100 UNIT/ML 10 ML VIAL SQ SCH ×2 (08:31→21:24)
[2017-10-24 09:16] LABS: Basophils # (A) 0.1 k/uL (0-0.2); Basophils % (A) 0 %; Eosinophils # (A) 0.1 k/uL (0-0.7); Eosinophils % (A) 1 %; HCT 36.1 % (34.0-46.0); HGB 10.9 gm/dL (11.4-16.0); Hypochromasia Slight; Lymphocytes # (A) 1.7 k/uL (1.0-4.8); Lymphocytes % (A) 11 %; MCH 29.5 pg (25.0-35.0); MCHC 30.3 g/dL (31.0-37.0); MCV 97.3 fL (80.0-100.0); Monocytes # (A) 0.7 k/uL (0-1.0); Monocytes % (A) 4 %; Neutrophils % (A) 83 %; Platelet Count 299 k/uL (150-450); RBC 3.71 m/uL (3.80-5.40); RDW 13.8 % (11.5-15.5); WBC 15.7 k/uL (3.8-10.6)
[2017-10-24 09:54] LABS: Calcium 8.4 mg/dL (8.4-10.2); Potassium 4.7 mmol/L (3.5-5.1)
[2017-10-24] MEDS: LACTATED RINGERS 1,000 ML IV SCH (10:01)
[2017-10-24 11:32] LABS: Glucose,Whole Blood 337 mg/dL (75-99)
--- NOTE | 2017-10-24 12:04 | ECHOF ---
Referral Reason:LV fx MEASUREMENTS -------- HEIGHT: 160.0 cm WEIGHT: 108.9 kg BP: 142/81 RVIDd: 3.0 cm (< 3.3) IVSd: 1.3 cm (0.6 - 1.1) LVIDd: 4.6 cm (3.9 - 5.3) LVPWd: 1.2 cm (0.6 - 1.1) IVSs: 1.6 cm LVIDs: 3.4 cm LVPWs: 1.5 cm LA Diam: 3.8 cm (2.7 - 3.8) LAESV Index (A-L): 28.57 ml/m Ao Diam: 2.6 cm (2.0 - 3.7) AV Cusp: 2.1 cm (1.5 - 2.6) MV EXCURSION: 18.048 mm (> 18.000) MV EF SLOPE: 52 mm/s (70 - 150) EPSS: 0.6 cm MV E Vick: 1.30 m/s MV DecT: 260 ms MV A Vick: 1.10 m/s MV E/A Ratio: 1.18 AV maxP.56 mmHg AV meanP.69 mmHg RAP: 15.00 mmHg RVSP: 31.98 mmHg FINDINGS -------- Sinus rhythm. This was a technically good study. The left ventricular size is normal. There is mild concentric left ventricular hypertrophy. Overa ll left ventricular systolic function is normal with, an EF between 60 - 65 %. The right ventricle is normal in size. LA is midly dilated 29-33ml/m2. The right atrium is normal in size. The aortic valve is trileaflet and appears structurally normal. Mild mitral annular calcification present. There is trace to mild mitral regurgitation. Mild tricuspid regurgitation present. Right ventricular systolic pressure is normal at < 35 mmHg. There is no pulmonic regurgitation present. The aortic root size is normal. The inferior vena cava is dilated with poor inspiratory collapse which is consistent with estimated r ight atrial pressure of 15 mmHg. There is no pericardial effusion. CONCLUSIONS -------- 1. Sinus rhythm. 2. This was a technically good study. 3. The left ventricular size is normal. 4. There is mild concentric left ventricular hypertrophy. 5. Overall left ventricular systolic function is normal with, an EF between 60 - 65 %. 6. The right ventricle is normal in size. 7. LA is midly dilated 29-33ml/m2. 8. The right atrium is normal in size. 9. The aortic valve is trileaflet and appears structurally normal. 10. Mild mitral annular calcification present. 11. There is trace to mild mitral regurgitation. 12. Mild tricuspid regurgitation present. 13. Right ventricular systolic pressure is normal at < 35 mmHg. 14. There is no pulmonic regurgitation present. 15. The aortic root size is normal. 16. The inferior vena cava is dilated with poor inspiratory collapse which is consistent with estimat ed right atrial pressure of 15 mmHg. 17. There is no pericardial effusion. CLINICAL PHARMACY TECHNICIAN: Toyin Christy RDCS
--- NOTE | 2017-10-24 14:25 | XR ---
EXAMINATION TYPE: XR chest 2V DATE OF EXAM: 10/24/2017 COMPARISON: 10/22/2017 HISTORY: 57-year-old female follow-up CHF TECHNIQUE: Frontal and lateral views FINDINGS: Heart mildly enlarged. Diffuse interstitial prominence with improving interstitial opacities. Some re sidual interstitial densities remain at the lower lungs. Trace effusion on the lateral view. IMPRESSION: Improving interstitial changes could represent improving CHF now with residual mild pulmonary vascula r congestion. Trace effusion on the lateral view.
[2017-10-24] MEDS ORDERED: MORPHINE ORAL SOLN 10 MG/5 ML CUP PO PRN ×2 (15:01→15:02)
[2017-10-24] MEDS: HYDROcodone/APAP 5-325MG 1 EACH TAB PO PRN (16:15)
[2017-10-24 16:53] LABS: Glucose,Whole Blood 388 mg/dL (75-99)
[2017-10-24] MEDS ORDERED: INSULIN ASPART 100 UNIT/ML 1 ML 10 ML VIAL SQ ONE (16:55)
--- NOTE | 2017-10-24 17:45 | P.PN ---
Subjective Progress Note Date: 10/24/17 Progress note being dictated for Dr. Eason> Interval history: This is a 57-year-old female admitted with acute right foot cellulitis with retained foreign body. Evaluated by orthopedics, vascular surgery and infectious disease. Bone scan reported consistent with cellulitis, increased activity in the region of the right heel without definite bony uptake seen. Scheduled for I&D/removal of foreign body today with vascular surgery. Maintained on broad-spectrum antibiotics. T-max 100, WBC 15.7. Sleepy, recently medicated for pain .CO2 20, creatinine 1.19. Chest x-ray yesterday reporting pulmonary edema, slightly worse possible pulmonary interstitial fibrosis with superimposed acute lung disease. Denies chest pain, palpitations or increased shortness of breath. 10/24/2017 yesterday underwent I&D , removal of foreign body, necrotic tissue removed with deep tissue culture obtained. Tolerated procedure well. Maintained on IV antibiotics. Afebrile. Received a dose of Lasix yesterday afternoon with creatinine mildly worsened. Maintaining O2 sats in the high 90s on 2 L nasal cannula. Follow-up chest x-ray reporting improving interstitial changes possible improving CHF with residual mild pulmonary vascular congestion , trace effusion. Echo reporting normal LV function, EF 60-65%.Blood Sugars elevated today. Pain controlled. Objective - Vital Signs Vital signs: Vital Signs Temp 97.4 F L 10/24/17 14:34 Pulse 87 10/24/17 14:34 Resp 18 10/24/17 14:34 BP 153/71 10/24/17 14:34 Pulse Ox 96 10/24/17 14:34 Intake & Output 10/23/17 10/24/17 10/24/17 18:59 06:59 18:59 Intake Total 175 240 Output Total 10 Balance 165 240 Weight 108.862 kg Intake: IV 175 Oral 240 Output: Estimated Blood Loss 10 Other: Voiding Method Incontinent Bedside Commode Bedside Commode Incontinent Incontinent # Voids 2 2 3 - Exam PHYSICAL EXAM: VITAL SIGNS: As above GENERAL: Sitting up at side of bed, no acute distress HEENT: Conjunctivae normal. eyes normal. Oral mucosa dry. NECK: No JVD. No thyroid enlargement. No LNs CARDIOVASCULAR: S1, S2 muffled. No murmur RESPIRATION: Breath sounds diminished in the bases. No rhonchi or crackles. No bronchial breathing. ABDOMEN: Soft, nontender . No guarding. no masses palpable. Bowel sounds heard. LEGS: Right foot dressing clean dry and intact. PSYCHIATRY: Alert and oriented -3, mood and affect normal. NERVOUS SYSTEM: Cranial N 2-12 grossly normal. Moves all 4 limbs. Diffuse weakness No focal deficits. - Labs CBC & Chem 7: 10/24/17 08:45 10/24/17 08:45 Labs: Abnormal Lab Results - Last 24 Hours (Table) 10/23/17 10/24/17 10/24/17 Range/Units 20:56 07:11 08:45 WBC 15.7 H (3.8-10.6) k/uL RBC 3.71 L (3.80-5.40) m/uL Hgb 10.9 L (11.4-16.0) gm/dL MCHC 30.3 L (31.0-37.0) g/dL Neutrophils # 13.0 H (1.3-7.7) k/uL Sodium (137-145) mmol/L BUN (7-17) mg/dL Creatinine (0.52-1.04) mg/dL Glucose (74-99) mg/dL POC Glucose (mg/dL) 391 H 334 H (75-99) mg/dL 10/24/17 10/24/17 10/24/17 Range/Units 08:45 11:20 16:44 WBC (3.8-10.6) k/uL RBC (3.80-5.40) m/uL Hgb (11.4-16.0) gm/dL MCHC (31.0-37.0) g/dL Neutrophils # (1.3-7.7) k/uL Sodium 135 L (137-145) mmol/L BUN 33 H (7-17) mg/dL Creatinine 1.36 H (0.52-1.04) mg/dL Glucose 336 H (74-99) mg/dL POC Glucose (mg/dL) 337 H 388 H (75-99) mg/dL Microbiology - Last 24 Hours (Table) 10/23/17 14:08 Gram Stain - Preliminary Foot - Right Wound Culture - Preliminary 10/23/17 14:00 Gram Stain - Preliminary Heel - Right Tissue Culture - Preliminary 10/23/17 14:08 Anaerobic Culture - Preliminary Other - Other 10/23/17 14:00 Anaerobic Culture - Preliminary Heel - Right 10/22/17 21:53 Blood Culture - Preliminary Blood No Growth after 24 hours 10/22/17 21:29 Blood Culture - Preliminary Blood No Growth after 24 hours 10/19/17 18:01 Blood Culture - Preliminary Blood No Growth after 96 hours Assessment and Plan Assessment: 1. Acute cellulitis right foot with soft tissue foreign body, diabetic foot and possible sepsis present on admission; status post I&D and removal of foreign body. 2. Leukocytosis secondary to the above 3. Hyponatremia 4. Diabetes mellitus type 2, better controlled 5. COPD 6. Sleep apnea 7. Obesity, BMI 42.5 8. Pulmonary edema, possible CHF, possible pulmonary interstitial fibrosis per cxr Plan: Continue on current medication regime ,monitoring and symptomatic treatment. Cultures pending. Maintain IV antibiotics. Follow cultures closely, potential PICC line. Levemir insulin increased with close monitoring of Accu-Cheks. BMP pending. Close monitoring of renal function with repeat labs ordered for a.m. Evaluated by PT/OT with subacute rehab recommended at discharge. The impression and plan of care has been dictated as directed. : I performed a history and examination of this patient, discussed the same with the dictator. I agree with the dictator's note ,documented as a scribe. Any additional findings or plans will be noted.
[2017-10-24 20:36] LABS: Glucose,Whole Blood 275 mg/dL (75-99)
[2017-10-25] MEDS: SODIUM CHLORIDE 0.9% 1,000 ML IV SCH ×2 (01:04→20:34)
[2017-10-25] MEDS: PIPERACILLIN-TAZOBACTAM 3.375 GM in DEXTROSE/WATER 1 50ML.BAG IVPB SCH ×3 (05:13→20:34)
[2017-10-25] MEDS: LEVOTHYROXINE 50 MCG TAB PO SCH (06:45)
[2017-10-25] MEDS: SYMBICORT 160-4.5 MCG INHALER INHALATION SCH ×2 (07:19→20:09)
[2017-10-25] MEDS: IPRATROPIUM-ALBUTEROL 3 ML NEB INHALATION SCH ×4 (07:19→20:09)
[2017-10-25 07:36] LABS: Glucose,Whole Blood 270 mg/dL (75-99)
[2017-10-25] MEDS: NICOTINE 14MG/24HR PATCH TRANSDERM SCH (07:45)
[2017-10-25] MEDS: GABAPENTIN 100 MG CAP PO SCH (07:46)
[2017-10-25] MEDS: INSULIN ASPART 100 UNIT/ML 1 ML 10 ML VIAL SQ SCH ×7 (07:46→21:05)
[2017-10-25] MEDS: PANTOPRAZOLE 40 MG TABLET PO SCH (07:46)
[2017-10-25] MEDS: LOSARTAN 50 MG TAB PO SCH (07:46)
[2017-10-25] MEDS: HEPARIN SODIUM,PORCINE 5,000 UNIT/ML 1 ML VIAL SQ SCH ×2 (07:46→20:34)
[2017-10-25] MEDS: INSULIN DETEMIR 100 UNIT/ML 10 ML VIAL SQ SCH ×2 (07:47→21:04)
[2017-10-25] MEDS: VANCOMYCIN 1,750 MG in SODIUM CHLORIDE 0.9% 500 ML IVPB SCH (09:22)
[2017-10-25 09:24] LABS: Basophils # (A) 0.1 k/uL (0-0.2); Basophils % (A) 1 %; Eosinophils # (A) 0.3 k/uL (0-0.7); Eosinophils % (A) 2 %; HCT 36.1 % (34.0-46.0); HGB 11.2 gm/dL (11.4-16.0); Hypochromasia Moderate; Lymphocytes # (A) 1.8 k/uL (1.0-4.8); Lymphocytes % (A) 15 %; MCH 30.2 pg (25.0-35.0); MCHC 30.9 g/dL (31.0-37.0); MCV 97.5 fL (80.0-100.0); Mean Platelet Volume 7.8; Monocytes # (A) 0.7 k/uL (0-1.0); Monocytes % (A) 5 %; Neutrophils # (A) 9.3 k/uL (1.3-7.7); Neutrophils % (A) 76 %; Platelet Count 282 k/uL (150-450); RDW 13.7 % (11.5-15.5); WBC 12.2 k/uL (3.8-10.6)
[2017-10-25] MEDS: LACTATED RINGERS 1,000 ML IV SCH (09:32)
[2017-10-25 09:45] LABS: Calcium 8.5 mg/dL (8.4-10.2); Potassium 5.2 mmol/L (3.5-5.1)
--- NOTE | 2017-10-25 11:16 | CDI ---
Last Revision, January 2017 Documentation Clarification Form Date: 10/25/17 From: Nikky Heard RN Admit Date: 10/19/2017 8:19:00 PM Patient Name: Pop Thrasher Visit Number: [id number] ATTENTION: The Clinical Documentation Specialists (CDI) and [facility] Coding Staff appreciate your assistance in clarifying documentation. Please respond to the clarification below the line at the bottom and electronically sign. The CDI & [facility] Coding staff will review the response and follow-up if needed. Please note: Queries are made part of the Legal Health Record. If you have any questions, please contact the author of this message via ITS. Jordan Espinal MD, Documentation of COPD is located in the chart 10/19 - 10/24. Pt. presented with right foot infection. Admitted for Diabetic foot infection , & Sepsis History/Risk Factors:DM2, COPD, hyperlipidemia, pneumonia, apnea Present smoker Clinical Indicators: On 2L oxygen CXR: 10/22: Pulmonary edema.This could be pulmonary interstitial fibrosis with superimposed acute lung disease. Heart failure is not excluded. 10/24: Improving interstitial changes could represent improving CHF now with residual mild pulmonary vascular congestion. Vital Signs on admission: T 97.9, P 91, R 16, 160/90, 96% RA Lung and Respiratory Assessment: PN 10/23: There is symmetrical air entry, expiratory wheezes throughout the Lung ruth. Consult Holliday 10/20: expiratory wheezes throughout the lung ruth. Treatment: Nebulizers: Duoneb, Symbicort Steroids: Decadron O2 @ 2 liters Antibiotics: Vanco. IVPB, Piperacillin IVPB, In your professional opinion, can you please clarify if the above findings and treatment signify any of the following? Acute Exacerbation of Chronic Obstructive Pulmonary Disease (COPD) Asthma (Please specify) Other condition, please specify Unable to determine Unable to determine MTDD
[2017-10-25] MEDS: HYDROcodone/APAP 5-325MG 1 EACH TAB PO PRN (11:55)
[2017-10-25 12:14] LABS: Glucose,Whole Blood 222 mg/dL (75-99)
[2017-10-25 17:13] LABS: Glucose,Whole Blood 200 mg/dL (75-99)
--- NOTE | 2017-10-25 18:56 | PN ---
PROGRESS NOTE 57-year-old white female. Patient had a infected callus right foot plantar aspect. The patient had excision of the callus and wound debridement. Culture is being taken. Patient has a Staph aureus and patient on IV antibiotic under care of Dr. Holliday. The patient has some swelling on the dorsal aspect of the foot with some mild cellulitis. There was concern of abscess. Under sterile technique, I just aspirated this, it was just clear fluid, most likely lymphedema and no evidence of infection dorsal aspect of the foot. We will continue with IV antibiotic. MMODL / IJN: [id number] /
[2017-10-25] MEDS: ATORVASTATIN 20 MG TAB PO SCH (20:34)
[2017-10-25 21:03] LABS: Glucose,Whole Blood 221 mg/dL (75-99)
[2017-10-25] MEDS ORDERED: VANCOMYCIN TROUGH DUE 1 EACH MISC MISCELLANE ONE (23:00)
--- NOTE | 2017-10-25 23:51 | P.PN ---
Subjective Progress Note Date: 10/25/17 57-year-old female who superobesity and diabetes mellitus type 2 that is poorly controlled, last hemoglobin A1c was 13.4. Presents with ulceration to her right foot that has become painful. In the emergency center standard x- rays were obtained during evidence of a foreign body into the right heel, as well as a significant cellulitis. Because of this she is admitted and infectious diseases and surgical consults are requested. The patient is quite uncomfortable because of the ulcerations. She relates they have markedly worse in the last week and despite care at home have not improved. She's had some fever and chill at home and has had rapid decline in overall status which is why she sought care. In the emergency center there is evidence of the ulceration as well as leukocytosis and increased creatinine. She is constantly admitted and further interventions are being arranged. 10/23/2017 the patient is being ready to go to the operating room for the debridement of her foot. She is denying into trouble such as fevers or chills. She's having some discomfort in they're working to improve her glucose control. It appears that vascular surgery and orthopedics will be coordinating surgical debridements. 10/25/2017 patient has had debridement of the plantar ulceration as well as the heel for removal of the foreign body which appeared to be a stone. She's doing better at this time. Bone scan without evidence of osteomyelitis. Cultures were determine her course of oral antibiotic therapy the time of her discharge with close follow-up in the wound healing Center and offloading to the foot Objective - Vital Signs Vital signs: Vital Signs Temp 100.4 F H 10/25/17 23:06 Pulse 85 10/25/17 23:06 Resp 18 10/25/17 23:06 BP 148/87 10/25/17 23:06 Pulse Ox 92 L 10/25/17 23:06 Intake & Output 10/25/17 10/25/17 10/26/17 06:59 18:59 06:59 Intake Total 775 1000 240 Balance 775 1000 240 Intake: Oral 775 1000 240 Other: Voiding Method Bedside Commode Bedside Commode Bedside Commode Incontinent Incontinent Incontinent # Voids 2 4 1 # Bowel Movements 1 - Exam leasant 57-year-old woman who has superobesity and is uncomfortable because of the pain and swelling to her right foot HEENT: Anicteric conjunctiva are pink and moist nasal mucosa grossly intact without significant lesions, there is no thrush. Neck: The neck is supple without significant lymphadenopathy or thyromegaly. Lungs: There is symmetrical air entry, expiratory wheezes throughout the lung ruth, no second bronchial sounds no sniffy and dullness or egophony Heart: Regular rate and rhythm with an audible S1-S2, no S3 loud S4. There is no significant murmur click or rub, PMI was nondisplaced. Abdomen: Obese, Positive bowel sounds soft and nontender without palpable masses or organomegaly. There was no guarding or rebound. Extremities: The upper extremities are intact with the IV site without difficulty. The lower extremities have some chronic venous stasis and chronic edema. Left foot has healing of the prior left heel ulceration. Right foot shows evidence of the plantar ulceration below the first metatarsal head measuring at 1 x 1 x 0.2 this extremely tender and painful with surrounding erythema and induration. The heel has an ulceration approximately 0.8 0.8 x 0.2 that is some scant drainage is also tender there some surrounding erythema. There swelling to the foot with some ascending erythema about the ankle. There is no severe lymphadenopathy to the right groin no other sniffy lymph nodes are abnormally enlarged Neuro: Awake alert oriented to person place and time. There are no acute new gross focal sensory motor deficits. - Labs CBC & Chem 7: 10/25/17 08:57 10/25/17 08:57 Labs: Abnormal Lab Results - Last 24 Hours (Table) 10/25/17 10/25/17 10/25/17 Range/Units 07:29 08:57 08:57 WBC 12.2 H (3.8-10.6) k/uL RBC 3.70 L (3.80-5.40) m/uL Hgb 11.2 L (11.4-16.0) gm/dL MCHC 30.9 L (31.0-37.0) g/dL Neutrophils # 9.3 H (1.3-7.7) k/uL Potassium 5.2 H (3.5-5.1) mmol/L BUN 30 H (7-17) mg/dL Creatinine 1.38 H (0.52-1.04) mg/dL Glucose 272 H (74-99) mg/dL POC Glucose (mg/dL) 270 H (75-99) mg/dL 10/25/17 10/25/17 10/25/17 Range/Units 12:06 16:46 20:58 WBC (3.8-10.6) k/uL RBC (3.80-5.40) m/uL Hgb (11.4-16.0) gm/dL MCHC (31.0-37.0) g/dL Neutrophils # (1.3-7.7) k/uL Potassium (3.5-5.1) mmol/L BUN (7-17) mg/dL Creatinine (0.52-1.04) mg/dL Glucose (74-99) mg/dL POC Glucose (mg/dL) 222 H 200 H 221 H (75-99) mg/dL Microbiology - Last 24 Hours (Table) 10/22/17 21:29 Blood Culture - Preliminary Blood No Growth after 72 hours 10/23/17 14:08 Gram Stain - Final Foot - Right Wound Culture - Final Staphylococcus aureus Leclericia adecarboxylata 10/23/17 14:08 Anaerobic Culture - Preliminary Other - Other 10/19/17 18:01 Blood Culture - Final Blood No Growth after 144 hours 10/23/17 14:00 Gram Stain - Preliminary Heel - Right Tissue Culture - Preliminary Presumptive Staph aureus 10/22/17 21:53 Blood Culture - Preliminary Blood No Growth after 48 hours Laboratory Results WBC 12.2 k/uL (3.8-10.6) H 10/25/17 08:57 RBC 3.70 m/uL (3.80-5.40) L 10/25/17 08:57 Hgb 11.2 gm/dL (11.4-16.0) L 10/25/17 08:57 Hct 36.1 % (34.0-46.0) 10/25/17 08:57 MCV 97.5 fL (80.0-100.0) 10/25/17 08:57 MCH 30.2 pg (25.0-35.0) 10/25/17 08:57 MCHC 30.9 g/dL (31.0-37.0) L 10/25/17 08:57 RDW 13.7 % (11.5-15.5) 10/25/17 08:57 Plt Count 282 k/uL (150-450) 10/25/17 08:57 Neutrophils % 76 % 10/25/17 08:57 Lymphocytes % 15 % 10/25/17 08:57 Monocytes % 5 % 10/25/17 08:57 Eosinophils % 2 % 10/25/17 08:57 Basophils % 1 % 10/25/17 08:57 Neutrophils # 9.3 k/uL (1.3-7.7) H 10/25/17 08:57 Lymphocytes # 1.8 k/uL (1.0-4.8) 10/25/17 08:57 Monocytes # 0.7 k/uL (0-1.0) 10/25/17 08:57 Eosinophils # 0.3 k/uL (0-0.7) 10/25/17 08:57 Basophils # 0.1 k/uL (0-0.2) 10/25/17 08:57 Hypochromasia Moderate 10/25/17 08:57 Sodium 137 mmol/L (137-145) 10/25/17 08:57 Potassium 5.2 mmol/L (3.5-5.1) H 10/25/17 08:57 Chloride 104 mmol/L (98-107) 10/25/17 08:57 Carbon Dioxide 29 mmol/L (22-30) 10/25/17 08:57 Anion Gap 4 mmol/L 10/25/17 08:57 BUN 30 mg/dL (7-17) H 10/25/17 08:57 Creatinine 1.38 mg/dL (0.52-1.04) H 10/25/17 08:57 Est GFR (CKD-EPI)AfAm 48 (>60 ml/min/1.73 sqM) 10/25/17 08:57 Est GFR (CKD-EPI)NonAf 42 (>60 ml/min/1.73 sqM) 10/25/17 08:57 Glucose 272 mg/dL (74-99) H 10/25/17 08:57 POC Glucose (mg/dL) 221 mg/dL (75-99) H 10/25/17 20:58 POC Glu [employer] SHARRI Letitia Carroll 10/25/17 20:[address] Glu mg/dL 341 10/20/17 07:04 Hemoglobin A1c 13.5 % (4.0-6.0) H 10/20/17 07:04 Plasma Lactic Acid Madhu 1.5 mmol/L (0.7-2.0) 10/19/17 18:01 Calcium 8.5 mg/dL (8.4-10.2) 10/25/17 08:57 Total Bilirubin 0.4 mg/dL (0.2-1.3) 10/19/17 18:01 AST 23 U/L (14-36) 10/19/17 18:01 ALT 29 U/L (9-52) 10/19/17 18:01 Alkaline Phosphatase 177 U/L (38-126) H 10/19/17 18:01 NT-Pro-B Natriuret Pep 947 pg/mL 10/24/17 07:35 Total Protein 6.7 g/dL (6.3-8.2) 10/19/17 18:01 Albumin 3.1 g/dL (3.5-5.0) L 10/19/17 18:01 Vancomycin Trough 15.4 ug/mL 10/22/17 15:03 Microbiology 10/22/17 21:29 Blood Blood Culture - Preliminary No Growth after 72 hours 10/23/17 14:08 Foot - Right Gram Stain - Final 10/23/17 14:08 Foot - Right Wound Culture - Final Staphylococcus aureus Leclericia adecarboxylata 10/23/17 14:08 Other - Other Anaerobic Culture - Preliminary 10/19/17 18:01 Blood Blood Culture - Final No Growth after 144 hours 10/23/17 14:00 Heel - Right Gram Stain - Preliminary 10/23/17 14:00 Heel - Right Tissue Culture - Preliminary Presumptive Staph aureus 10/22/17 21:53 Blood Blood Culture - Preliminary No Growth after 48 hours 10/23/17 14:00 Heel - Right Anaerobic Culture - Preliminary 10/20/17 11:00 Urine,Voided Urine Culture - Final Assessment and Plan (1) Diabetes mellitus type 2, uncontrolled, with complications Current Visit: No Status: Acute Code(s): E11.8 - TYPE 2 DIABETES MELLITUS WITH UNSPECIFIED COMPLICATIONS; E11.65 - TYPE 2 DIABETES MELLITUS WITH HYPERGLYCEMIA SNOMED Code(s): 515514869 (2) Sepsis Current Visit: Yes Status: Acute Code(s): A41.9 - SEPSIS, UNSPECIFIED ORGANISM SNOMED Code(s): 39182093 (3) Diabetic ulcer of right foot associated with diabetes mellitus due to underlying condition, with fat layer exposed Narrative/Plan: With a several-day history of increasing pain to the right foot with evidence of ulcerations with some drainage. She has diabetes with uncontrolled blood sugars this seemed to be worse than usual. She feels very poorly with sensations of fever and chill. At admission there is evidence of significant cellulitis of the foot and concerns to a foreign body at the right heel. Consuls with orthopedic were requested in the workup has been deferred to the vascular surgeon to further evaluate her vascular status and potentially debrided and remove any foreign body from the right heel. If surgical approaches does occur would also likely have debridement of the ulceration to the plantar surface first metatarsal head. Antibiotic therapy is currently with vancomycin and Zosyn which is appropriate based on her history. She believes she is up-to-date with her tetanus vaccine. Local wound care with Silvadene has been requested twice a day until she's been evaluated by the surgeons and plans are into place. Is evidence of an elevated creatinine which will be monitored closely also here. leukocytosis due to sepsis from the infection to the foot. 10/23/2017 the patient is being readied for operative care to her right foot ulcerations which included debridement of the callus and potential removal of foreign body. Bone scan was performed and shows evidence of no underlying osteomyelitis. The stent cultures will help direct the course of antibiotic therapy at discharge with local wound care and follow-up of the wound healing center with vascular surgery and this provider. We'll need specialty shoes for offloading 10/25/2017 patient is status post surgical debridement. Cultures were direct antibiotic therapy. Bone scan is negative underlying bony infection, await if the surgeon found any deeper structure infection at the time of the debridement which might dictate a different course of antibiotic therapy. Hopefully will expect oral therapy for home. Current Visit: Yes Status: Acute Code(s): E08.621 - DIABETES MELLITUS DUE TO UNDERLYING CONDITION W FOOT ULCER; L97.512 - NON-PRS CHRONIC ULCER OTH PRT RIGHT FOOT W FAT LAYER EXPOSED SNOMED Code(s): 627781382 (4) Leukocytosis Current Visit: No Status: Acute Code(s): D72.829 - ELEVATED WHITE BLOOD CELL COUNT, UNSPECIFIED SNOMED Code(s): 087166020
[2017-10-26] MEDS: VANCOMYCIN 1,750 MG in SODIUM CHLORIDE 0.9% 500 ML IVPB SCH (00:06)
[2017-10-26] MEDS: PIPERACILLIN-TAZOBACTAM 3.375 GM in DEXTROSE/WATER 1 50ML.BAG IVPB SCH ×2 (04:41→12:25)
[2017-10-26 05:53] VITALS: BP 166/76; RESP 16; TEMP 99.4
[2017-10-26] MEDS: LEVOTHYROXINE 50 MCG TAB PO SCH (06:23)
[2017-10-26] MEDS: IPRATROPIUM-ALBUTEROL 3 ML NEB INHALATION SCH ×2 (07:04→11:02)
[2017-10-26] MEDS: SYMBICORT 160-4.5 MCG INHALER INHALATION SCH (07:04)
[2017-10-26 07:17] LABS: Glucose,Whole Blood 187 mg/dL (75-99)
[2017-10-26] MEDS: INSULIN DETEMIR 100 UNIT/ML 10 ML VIAL SQ SCH (08:09)
[2017-10-26] MEDS: INSULIN ASPART 100 UNIT/ML 1 ML 10 ML VIAL SQ SCH ×4 (08:10→12:26)
[2017-10-26] MEDS: NICOTINE 14MG/24HR PATCH TRANSDERM SCH ×2 (08:10→08:15)
[2017-10-26] MEDS: GABAPENTIN 100 MG CAP PO SCH (08:11)
[2017-10-26] MEDS: LOSARTAN 50 MG TAB PO SCH (08:11)
[2017-10-26] MEDS: HEPARIN SODIUM,PORCINE 5,000 UNIT/ML 1 ML VIAL SQ SCH (08:11)
[2017-10-26] MEDS: PANTOPRAZOLE 40 MG TABLET PO SCH (08:11)
[2017-10-26] MEDS: LACTATED RINGERS 1,000 ML IV SCH (08:11)
[2017-10-26] MEDS: HYDROcodone/APAP 5-325MG 1 EACH TAB PO PRN (08:16)
--- NOTE | 2017-10-26 10:45 | CDI ---
Documentation Clarification Form Date: 10/26/17 CDS: Nikky Heard RN Admit Date: 10/19/17 Patient Name: Pop Thrasher ATTENTION: The Clinical Documentation Specialists (CDI) and [facility] Coding Staff appreciate your assistance in clarifying documentation. Please respond to the clarification below the line at the bottom and electronically sign. The CDI & [facility] Coding staff will review the response and follow-up if needed. Please note: Queries are made part of the Legal Health Record. If you have any questions, please contact the author of this message via ITS. Dr. Jordan Eason, Clarification is needed to accurately reflect the patient severity of illness: Pt. presented with rt. foot infection. Admitted with Sepsis, Diabetic foot infection. History/Risk Factors: DM2, COPD, fibromyalgia, hyperlipidemia, pneumonia, apnea , left ear ulcer, neuropathy Clinical Indicators: VS on admission 97.9, P 91, R 16, 160/90, 96% RA BNP: 947 Echocardiogram Results: EF 60-65% Chest X Ray: 10/20: Findings consistent with congestive heart failure 10/19 ED note: There is associated edema and cellulitis extending to the lower nova 10/[address] Holliday "The lower extremities have some chronic venous stasis and chronic edema." Treatment: Lasix 40mg IV monitor labs No Cardiology consults In your professional opinion, can you please clarify the acuity and type of CHF if known? CHF ruled out CHF ruled in (Please Specify) Diastolic Heart Failure: Acute Chronic Acute on Chronic Unable to Determine Other, please specify Unable to Determine MTDD
--- NOTE | 2017-10-26 11:04 | CDI ---
Documentation Clarification Form Date: 10/26/17 CDS: Nikky Heard RN Admit Date: 10/19/17 Patient Name: Pop Thrasher ATTENTION: The Clinical Documentation Specialists (CDI) and [facility] Coding Staff appreciate your assistance in clarifying documentation. Please respond to the clarification below the line at the bottom and electronically sign. The CDI & [facility] Coding staff will review the response and follow-up if needed. Please note: Queries are made part of the Legal Health Record. If you have any questions, please contact the author of this message via ITS. Dr. Jrodan Eason, Can you please render your opinion on the following documentation? Pt. presented with right foot infection. Admitted with Diabetic foot infection, Sepsis. History/Risk Factors: DM2, COPD, fibromyalgia, hyperlipidemia, DJD, pneumonia, apnea, left ear ulcer, neuropathy Clinical Indicators: Patients admission: BUN 29, CR 1.03, GFR 60: Current: BUN 30, CR. 1.38, GFR 42 Treatment: Consults: Dr. Holliday IVF Bolus: .9 2000ml, now .9 @ 20 In order to capture the severity of condition, please clarify if the condition signifies: Acute renal failure, Please specify etiology (if known): Tubular Necrosis Acute kidney injury Acute on chronic renal failure CKD Stage 3 GFR 30-59 CKD Stage 4 GFR 15-29 CKD Stage 5 GFR <15 Chronic renal failure/Chronic Kidney disease (CKD) please stage if known CKD Stage 2 GFR 60-89 CKD Stage 3 GFR 30-59 CKD Stage 4 GFR 15-29 CKD Stage 5 GFR <15 Other, please specify Unable to determine CKD Stage 3 GFR 30-59 MTDD
[2017-10-26 11:11] VITALS: PULSE 83
[2017-10-26 12:10] LABS: Glucose,Whole Blood 214 mg/dL (75-99)
[2017-10-26] MEDS ORDERED: LIDOCAINE 1% INJ 10MG/ML (20 ML MDV) SQ ONE (13:06)
--- NOTE | 2017-10-26 15:09 | PN ---
PROGRESS NOTE This is a 57-year-old female. Patient had infected callus removed. Today we did the I and D on that area of the right foot plantar aspect. The patient is growing Staph aureus. PLAN: Patient going home today and will follow up in office on Sunday. Will continue with local wound care using Aquacel Silver and p.o. antibiotic by Dr. Holliday. DON / ESTEEN: [id number] /
--- NOTE | 2017-10-26 18:21 | P.PN ---
Subjective Progress Note Date: 10/25/17 Progress note being dictated for Dr. Eason> Interval history: This is a 57-year-old female admitted with acute right foot cellulitis with retained foreign body. Evaluated by orthopedics, vascular surgery and infectious disease. Bone scan reported consistent with cellulitis, increased activity in the region of the right heel without definite bony uptake seen. Scheduled for I&D/removal of foreign body today with vascular surgery. Maintained on broad-spectrum antibiotics. T-max 100, WBC 15.7. Sleepy, recently medicated for pain .CO2 20, creatinine 1.19. Chest x-ray yesterday reporting pulmonary edema, slightly worse possible pulmonary interstitial fibrosis with superimposed acute lung disease. Denies chest pain, palpitations or increased shortness of breath. 10/24/2017 yesterday underwent I&D , removal of foreign body, necrotic tissue removed with deep tissue culture obtained. Tolerated procedure well. Maintained on IV antibiotics. Afebrile. Received a dose of Lasix yesterday afternoon with creatinine mildly worsened. Maintaining O2 sats in the high 90s on 2 L nasal cannula. Follow-up chest x-ray reporting improving interstitial changes possible improving CHF with residual mild pulmonary vascular congestion , trace effusion. Echo reporting normal LV function, EF 60-65%.Blood Sugars elevated today. Pain controlled. 10/25/2017 right foot presenting with increased redness/edema. Evaluated by Dr. Zhou at bedside-no purulent drainage noted. Continues on IV antibiotics. Levemir dose increased yesterday with blood sugars improving. Afebrile. Maintaining O2 sats in the high 90s on 2 L nasal cannula. Denies chest pain, palpitations or shortness of breath. Objective - Vital Signs Vital signs: Vital Signs Temp 98.5 F 10/25/17 14:11 Pulse 82 10/25/17 15:50 Resp 16 10/25/17 14:11 BP 166/90 10/25/17 14:11 Pulse Ox 96 10/25/17 14:11 Intake & Output 10/24/17 10/25/17 10/25/17 18:59 06:59 18:59 Intake Total 775 400 Balance 775 400 Intake: Oral 775 400 Other: Voiding Method Bedside Commode Bedside Commode Bedside Commode Incontinent Incontinent Incontinent # Voids 3 2 2 - Exam PHYSICAL EXAM: VITAL SIGNS: As above GENERAL: Sitting up at side of bed, no acute distress HEENT: Conjunctivae normal. eyes normal. Oral mucosa dry. NECK: No JVD. No thyroid enlargement. No LNs CARDIOVASCULAR: S1, S2 muffled. No murmur RESPIRATION: Breath sounds diminished in the bases. No rhonchi or crackles. No bronchial breathing. ABDOMEN: Soft, nontender . No guarding. no masses palpable. Bowel sounds heard. LEGS: Right foot , dorsal aspect increased edema, redness without purulent drainage PSYCHIATRY: Alert and oriented -3, mood and affect normal. NERVOUS SYSTEM: Cranial N 2-12 grossly normal. Moves all 4 limbs. Diffuse weakness No focal deficits. - Labs CBC & Chem 7: 10/25/17 08:57 10/25/17 08:57 Labs: Abnormal Lab Results - Last 24 Hours (Table) 10/24/17 10/25/17 10/25/17 Range/Units 20:30 07:29 08:57 WBC 12.2 H (3.8-10.6) k/uL RBC 3.70 L (3.80-5.40) m/uL Hgb 11.2 L (11.4-16.0) gm/dL MCHC 30.9 L (31.0-37.0) g/dL Neutrophils # 9.3 H (1.3-7.7) k/uL Potassium (3.5-5.1) mmol/L BUN (7-17) mg/dL Creatinine (0.52-1.04) mg/dL Glucose (74-99) mg/dL POC Glucose (mg/dL) 275 H 270 H (75-99) mg/dL 10/25/17 10/25/17 10/25/17 Range/Units 08:57 12:06 16:46 WBC (3.8-10.6) k/uL RBC (3.80-5.40) m/uL Hgb (11.4-16.0) gm/dL MCHC (31.0-37.0) g/dL Neutrophils # (1.3-7.7) k/uL Potassium 5.2 H (3.5-5.1) mmol/L BUN 30 H (7-17) mg/dL Creatinine 1.38 H (0.52-1.04) mg/dL Glucose 272 H (74-99) mg/dL POC Glucose (mg/dL) 222 H 200 H (75-99) mg/dL Microbiology - Last 24 Hours (Table) 10/23/17 14:08 Gram Stain - Preliminary Foot - Right Wound Culture - Preliminary Presumptive Staph aureus Gram Neg Bacilli 10/23/17 14:00 Gram Stain - Preliminary Heel - Right Tissue Culture - Preliminary Presumptive Staph aureus 10/22/17 21:53 Blood Culture - Preliminary Blood No Growth after 48 hours 10/22/17 21:29 Blood Culture - Preliminary Blood No Growth after 48 hours 10/19/17 18:01 Blood Culture - Preliminary Blood No Growth after 120 hours Assessment and Plan Assessment: 1. Acute cellulitis right foot with soft tissue foreign body, diabetic foot and possible sepsis present on admission; status post I&D and removal of foreign body. 2. Leukocytosis secondary to the above 3. Hyponatremia 4. Diabetes mellitus type 2, better controlled 5. COPD 6. Sleep apnea 7. Obesity, BMI 42.5 8. Pulmonary edema, possible CHF, diastolic dysfunction, pulmonary interstitial fibrosis in a patient who is a chronic smoker. Plan: Continue on current medication regime ,monitoring and symptomatic treatment. Wean off O2 -patient maintaining O2 sats in the high 90s on 2 L .Cultures pending. Continue IV antibiotics. Close monitoring of Accu-Cheks. Physical therapy recommending subacute rehab.; Patient declining. The impression and plan of care has been dictated as directed. : I performed a history and examination of this patient, discussed the same with the dictator. I agree with the dictator's note ,documented as a scribe. Any additional findings or plans will be noted.
--- NOTE | 2017-10-26 18:42 | PCN ---
PROCEDURE NOTE This is a 57-year female patient, the patient had callous right foot plantar aspect of the right foot. Now patient has developed some redness on the plantar aspect of the right foot. There is localized tenderness noted and some tenderness noted. Patient is growing Staph aureus. Looks like there is another area of infection most likely a localized abscess noted. Plan is I and D of the wound. The patient's right foot was prepped and draped in a sterile manner. 1% lidocaine infiltrated. A 2 cm incision is made at the most fluctuant area of the plantar aspect of the right foot, deepened through skin fat and . MMODL / IJN: [id number] /
--- NOTE | 2017-10-26 20:57 | DS ---
DISCHARGE SUMMARY DATE OF SERVICE: 10/26/2017 FINAL DIAGNOSES: 1. Acute cellulitis of the right foot with soft tissue foreign body, diabetic foot and possible sepsis, present on admission, status post incision and drainage, removal of the foreign body. 2. Leukocytosis secondary to above. 3. Hyponatremia. 4. Diabetes mellitus, type 2, uncontrolled, with hyperglycemia. 5. Chronic obstructive pulmonary disease. 6. No evidence of congestive heart failure. 7. Fibromyalgia. 8. Hypertension. 9. Hyperlipidemia. 10.History of degenerative joint disease. 11.History of pneumonia. 12.Sleep apnea. 13.History of left heel ulcer. 14.Obesity with body mass index of 42.5. 15.Anxiety, depression. 16.History of nicotine dependence. 17.FULL CODE. DISCHARGE DISPOSITION: The patient will be discharged in stable condition with guarded prognosis. Total time taken 35 minutes. HISTORY OF PRESENT ILLNESS: This 57-year-old woman has a past medical history of multiple medical problems was admitted with cellulitis. Patient had a foreign body also. Patient underwent surgery by Dr. Zhou. Orthopedics also saw the patient. The patient had excision of infected callus under local IV sedation. Please refer to multiple constants' consultation reports and consultation notes for further information. On exam, patient's vitals are stable. CARDIOVASCULAR: S1, S2 muffled. RESPIRATORY SYSTEM: Breath sounds diminished at the bases. No rhonchi. No crackles. ABDOMEN: Soft. NERVOUS SYSTEM: No focal deficit. DISCHARGE ADVICE AND MEDICATIONS: 1. Discharge diet is cardiac. 2. Activity limited until followup. 3. Follow up with Dr. Gallardo in 2-3 days. 4. Follow up with Dr. Zhou as advised. 5. Follow up with Infectious Disease Dr. Holliday as advised. 6. Lipitor 20 mg at bedtime. 7. Lomotil 2.5 daily p.r.n. 8. Neurontin 100 mg p.o. daily. 9. NovoLog 15 units before meals t.i.d. 10.Synthroid 100 mcg p.o. daily. 11.Cozaar 100 mg p.o. daily. 12.Prior HFA 2 puffs q.i.d. p.r.n. 13.Augmentin 875 mg p.o. b.i.d. for 14 days. 14.Aspirin 325 mg daily. 15.Symbicort 160/4.5 two puffs b.i.d. 16.Plavix 75 mg p.o. daily. 17.Levemir insulin Detemir 63 units subcutaneously b.i.d. 18.Habitrol 14 daily. 19.Silver sulfadiazine cream application. 20.Multivitamins 1 p.o. daily. Once again, the patient will be discharged in stable condition with guarded prognosis. MMODL / IJN: [id number] / MTDD
== END 2017-10-26 15:27 | disposition home health service (06) | DRG 854 ==
LOC: EC 15:48 → 3SUR 20:19 → 4MS4W 10-23 09:29
PROVIDERS: ADMIT Hospitalist; ATTEND Hospitalist
PROC: 0JBQ0ZZ Excision of Right Foot Subcutaneous Tissue and Fascia, Open Approach (ICD-10-PCS; principal; 2017-10-23 07:30)
PROC: 0J9Q0ZZ Drainage of Right Foot Subcutaneous Tissue and Fascia, Open Approach (ICD-10-PCS; 2017-10-26)
DX: A41.9 Sepsis, unspecified organism (principal); L03.115 Cellulitis of right lower limb; E87.1 Hypo-osmolality and hyponatremia; Z68.41 Body mass index [BMI] 40.0-44.9, adult; I13.0 Hypertensive heart and chronic kidney disease with heart failure and stage 1 through stage 4 chronic kidney disease, or unspecified chronic kidney disease; L97.412 Non-pressure chronic ulcer of right heel and midfoot with fat layer exposed; I50.30 Unspecified diastolic (congestive) heart failure; E66.9 Obesity, unspecified; E11.22 Type 2 diabetes mellitus with diabetic chronic kidney disease; E11.40 Type 2 diabetes mellitus with diabetic neuropathy, unspecified; E11.628 Type 2 diabetes mellitus with other skin complications; E11.621 Type 2 diabetes mellitus with foot ulcer; E11.65 Type 2 diabetes mellitus with hyperglycemia; L97.519 Non-pressure chronic ulcer of other part of right foot with unspecified severity; N18.3 Chronic kidney disease, stage 3 (moderate); G47.33 Obstructive sleep apnea (adult) (pediatric); H35.30 Unspecified macular degeneration; I89.0 Lymphedema, not elsewhere classified; M79.5 Residual foreign body in soft tissue; M79.7 Fibromyalgia; E78.5 Hyperlipidemia, unspecified; J44.9 Chronic obstructive pulmonary disease, unspecified; F41.9 Anxiety disorder, unspecified; E07.9 Disorder of thyroid, unspecified; M19.91 Primary osteoarthritis, unspecified site; I87.8 Other specified disorders of veins; R32 Unspecified urinary incontinence; F17.210 Nicotine dependence, cigarettes, uncomplicated; Z71.6 Tobacco abuse counseling; F32.9 Major depressive disorder, single episode, unspecified; Z71.3 Dietary counseling and surveillance; Z79.02 Long term (current) use of antithrombotics/antiplatelets; Z79.82 Long term (current) use of aspirin; Z79.890 Hormone replacement therapy; Z79.4 Long term (current) use of insulin; Z79.899 Other long term (current) drug therapy; Z87.01 Personal history of pneumonia (recurrent); W45.8XXA Other foreign body or object entering through skin, initial encounter; Z80.1 Family history of malignant neoplasm of trachea, bronchus and lung; Z82.49 Family history of ischemic heart disease and other diseases of the circulatory system
CPT/HCPCS: 36415; 71045; 71046; 78315; 80048; 80053; 80202; 83036; 83605; 83880; 85025; 87040; 87070; 87075; 87077; 87086; 87186; 87205; 88300; 88305; 88312; 93306; 93970; 94640; 94760; 96365; 99284

== ENCOUNTER 2017-11-26 19:06 | Inpatient (IN) | payer MEDICARE, OTHER ==
--- NOTE | 2017-11-26 20:49 | ED ---
Wound/Laceration HPI - General Chief Complaint: Wound/Laceration Stated Complaint: wound on foot Time Seen by Provider: 11/26/17 20:27 Source: patient, family, RN notes reviewed Mode of arrival: wheelchair Limitations: no limitations - History of Present Illness Initial Comments: Assessment 56-year-old female history of diabetes who has had a wound infection the right foot for about the last month or so ever since getting a piece of metal in her heel. She's been wound clinic is been seen until today when she could not weight-bear. She is here for evaluation she denies any overt fevers chills or sweats he states the foot is getting worse with increased swelling to lower extremity she states she sleeps all time she also states she's had decreased urine output. He has no prior history of renal insufficiency or failure. He currently is not on any oral antibiotics. - Related Data Home Medications Medication Instructions Recorded Confirmed Gabapentin [Neurontin] 100 mg PO HS 03/27/16 11/26/17 Losartan [Cozaar] 100 mg PO DAILY 03/27/16 11/26/17 Insulin Aspart [NovoLOG Flexpen] 15 units SQ AC-TID 10/19/17 11/26/17 Insulin Detemir [Levemir Flextouch] 60 unit SQ BID 11/06/17 11/26/17 Levothyroxine Sodium [Levoxyl] 50 mcg PO DAILY 11/06/17 11/26/17 Linagliptin [Tradjenta] 5 mg PO DAILY 11/06/17 11/26/17 amLODIPine [Norvasc] 5 mg PO DAILY 11/06/17 11/26/17 Varenicline Tartrate [Chantix 0.5 mg PO DIRECTED 11/19/17 11/26/17 Starter Pack] Albuterol Inhaler [Ventolin Hfa 1 - 2 puff INHALATION RT-Q6H PRN 11/26/17 Inhaler] Previous Rx's Medication Instructions Recorded Aspirin 325 mg PO DAILY #90 tab 04/27/16 Clopidogrel [Plavix] 75 mg PO DAILY #90 tab 04/27/16 Budesonide-Formot 160-4.5 Mcg 2 puff INHALATION RT-BID #1 inh 10/26/17 [Symbicort 160-4.5 Mcg Inhaler] Allergies Allergy/AdvReac Type Severity Reaction Status Date / Time No Known Allergies Allergy Verified 11/26/17 20:17 Review of Systems ROS Statement: Those systems with pertinent positive or pertinent negative responses have been documented in the HPI. ROS Other: All systems not noted in ROS Statement are negative. Past Medical History Past Medical History: COPD, Diabetes Mellitus, Eye Disorder, Fibromyalgia, Hyperlipidemia, Hypertension, Musculoskeletal Disorder, Neurologic Disorder, Osteoarthritis (OA), Pneumonia, Skin Disorder, Sleep Apnea/CPAP/BIPAP, Thyroid Disorder, Vascular Disorder Additional Past Medical History / Comment(s): IDDM type II, diabetic neuropathy hands and feet bilaterally, States she thinks she has Sleep Apnea., bilateral carpal tunnel, vertigo, slight KLAMATH , macular degeneration , hx. bronchitis, & pneumonia., sinus problems, Incontinent bowel and bladder., states scabs on upper arms. 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 Multi-Drug Resistant Organisms: None Reported Past Surgical History: No Surgical Hx Reported Additional Past Surgical History / Comment(s): Colonoscopy, PICC line, Angiogram with Arthrectomy and Femoral stent (2017) Past Anesthesia/Blood Transfusion Reactions: No Reported Reaction Past Psychological History: No Psychological Hx Reported Smoking Status: Current every day smoker Past Alcohol Use History: Rare Past Drug Use History: None Reported - Past Family History Mother Family Medical History: Cancer Additional Family Medical History / Comment(s): Mother at 69yrs of age of lung cancer. Father Family Medical History: Cancer Additional Family Medical History / Comment(s): Father at 60 yrs of age of mesothelioma. Brother(s) Family Medical History: Coronary Artery Disease (CAD) Sister(s) Family Medical History: Hypertension Daughter(s) Family Medical History: No Reported History Son(s) Family Medical History: No Reported History General Exam - General Exam Comments Initial Comments: This is a well-developed well-nourished awake alert oriented 3 female Limitations: no limitations General appearance: alert, in no apparent distress Head exam: Present: atraumatic, normocephalic, normal inspection Eye exam: Present: normal appearance, PERRL, EOMI. Absent: scleral icterus, conjunctival injection, periorbital swelling ENT exam: Present: mucous membranes dry Neck exam: Present: normal inspection. Absent: tenderness, meningismus, lymphadenopathy Respiratory exam: Present: normal lung sounds bilaterally. Absent: respiratory distress, wheezes, rales, rhonchi, stridor Cardiovascular Exam: Present: regular rate, normal rhythm, normal heart sounds. Absent: systolic murmur, diastolic murmur, rubs, gallop, clicks GI/Abdominal exam: Present: soft, normal bowel sounds. Absent: distended, tenderness, guarding, rebound, rigid Extremities exam: Present: full ROM, tenderness (There is edema to the right lower extremity with wounds on the plantar aspects of the mid foot as well as the heel. Proximal or is also edema. He Is enlarged compared to the left side. No definite palpable cords. Capillary refill is less than 2 seconds. Some slightly decreased sensation to light touch), normal capillary refill, other (No crepitation no step off). Absent: pedal edema, joint swelling, calf tenderness Back exam: Present: normal inspection Neurological exam: Present: alert, oriented X3, CN II-XII intact Psychiatric exam: Present: normal affect, normal mood Skin exam: Present: warm, dry, intact, normal color. Absent: rash Course Vital Signs 11/26/17 19:08 Temperature 98.2 F Pulse Rate 84 Respiratory 18 Rate Blood Pressure 135/85 O2 Sat by Pulse 98 Oximetry Medical Decision Making - Medical Decision Making I did discuss findings with patient family members as well as with the admitting service. I also discussed case with Dr. Zhou. Patient be admitted IV antibiotics consultation by Dr. Irving. - Lab Data Result diagrams: 11/26/17 20:56 11/26/17 20:56 Lab Results 11/26/17 11/26/17 11/26/17 Range/Units 20:56 20:56 20:56 WBC 21.6 H (3.8-10.6) k/uL RBC 3.92 (3.80-5.40) m/uL Hgb 11.7 (11.4-16.0) gm/dL Hct 36.0 (34.0-46.0) % MCV 91.7 D (80.0-100.0) fL MCH 29.7 (25.0-35.0) pg MCHC 32.4 (31.0-37.0) g/dL RDW 14.3 (11.5-15.5) % Plt Count 341 (150-450) k/uL Neutrophils % 85 % Lymphocytes % 9 % Monocytes % 5 % Eosinophils % 1 % Basophils % 0 % Neutrophils # 18.4 H (1.3-7.7) k/uL Lymphocytes # 1.8 (1.0-4.8) k/uL Monocytes # 1.0 (0-1.0) k/uL Eosinophils # 0.1 (0-0.7) k/uL Basophils # 0.0 (0-0.2) k/uL Sodium 134 L (137-145) mmol/L Potassium 4.2 (3.5-5.1) mmol/L Chloride 98 (98-107) mmol/L Carbon Dioxide 27 (22-30) mmol/L Anion Gap 9 mmol/L BUN 29 H (7-17) mg/dL Creatinine 0.95 (0.52-1.04) mg/dL Est GFR (CKD-EPI)AfAm 76 (>60 ml/min/1.73 sqM) Est GFR (CKD-EPI)NonAf 66 (>60 ml/min/1.73 sqM) Glucose 95 (74-99) mg/dL Calcium 8.8 (8.4-10.2) mg/dL Magnesium 2.0 (1.6-2.3) mg/dL Total Bilirubin 0.4 (0.2-1.3) mg/dL AST 35 (14-36) U/L ALT 42 (9-52) U/L Alkaline Phosphatase 116 (38-126) U/L Total Creatine Kinase 88 (30-135) U/L CK-MB (CK-2) 3.2 H (0.0-2.4) ng/mL CK-MB (CK-2) Rel Index 3.6 Total Protein 7.1 (6.3-8.2) g/dL Albumin 3.1 L (3.5-5.0) g/dL - Radiology Data Radiology results: report reviewed (I did review the imaging and report there is some evidence of emphysema to the dorsum of the foot.), image reviewed Disposition Clinical Impression: Diabetic infection of right foot, Failure of outpatient treatment, Dehydration Disposition: ADMITTED IP TO THIS [facility] Condition: Stable Referrals: Edgar Gallardo MD [Primary Care Provider] - 1-2 days
--- NOTE | 2017-11-26 21:13 | XR ---
PROCEDURE: XR foot complete RT 3V DATE AND TIME: 11/26/2017 9:06 PM CLINICAL INDICATION: H Pain TECHNIQUE: Department protocol. 3V COMPARISON: None FINDINGS: The bones and joints are unremarkable. However, there is extensive soft tissue swelling throughout the foot and ankle, with what appears to be soft tissue emphysema in the dorsum of the midfoot and forefoot. MRI without and with contrast can fully characterize the soft tissues. IMPRESSION: EXTENSIVE SOFT TISSUE SWELLING AND EMPHYSEMA.
[2017-11-26 21:25] LABS: Basophils % (A) 0 %; Eosinophils # (A) 0.1 k/uL (0-0.7); Eosinophils % (A) 1 %; HGB 11.7 gm/dL (11.4-16.0); Lymphocytes # (A) 1.8 k/uL (1.0-4.8); Lymphocytes % (A) 9 %; MCH 29.7 pg (25.0-35.0); MCHC 32.4 g/dL (31.0-37.0); Mean Platelet Volume 7.9; Monocytes % (A) 5 %; Neutrophils # (A) 18.4 k/uL (1.3-7.7); Neutrophils % (A) 85 %; Platelet Count 341 k/uL (150-450); RBC 3.92 m/uL (3.80-5.40); RDW 14.3 % (11.5-15.5); WBC 21.6 k/uL (3.8-10.6)
[2017-11-26 21:27] LABS: MCV 91.7 fL (80.0-100.0)
[2017-11-26 21:47] LABS: Albumin 3.1 g/dL (3.5-5.0); Calcium 8.8 mg/dL (8.4-10.2); Potassium 4.2 mmol/L (3.5-5.1); Total Bilirubin 0.4 mg/dL (0.2-1.3); Total Protein 7.1 g/dL (6.3-8.2)
[2017-11-26 21:56] LABS: Creatine Kinase MB 3.2 ng/mL (0.0-2.4)
--- NOTE | 2017-11-26 22:51 | US ---
EXAMINATION TYPE: US venous doppler duplex LE RT DATE OF EXAM: 11/26/2017 10:23 PM COMPARISON: NONE CLINICAL HISTORY: Pain. Right leg pain and edema. SIDE PERFORMED: Right TECHNIQUE: The lower extremity deep venous system is examined utilizing real time linear array sonog kalli with graded compression, doppler sonography and color-flow sonography. VESSELS IMAGED: External Iliac Vein (EIV) Common Femoral Vein Deep Femoral Vein Greater Saphenous Vein * Femoral Vein Popliteal Vein Small Saphenous Vein * Proximal Calf Veins (* superficial vessels) Right Leg: Negative for DVT No evidence of DVT right leg. Hypoechoic area seen in right groin measuring 3.4 x 1.6cm. IMPRESSION: No evidence of deep venous thrombosis. There is enlarged right inguinal lymph node.
[2017-11-26] MEDS ORDERED: NALOXONE 0.4 MG/ML 1 ML VIAL IV PRN (23:27)
[2017-11-26] MEDS ORDERED: PIPERACILLIN-TAZOBACTAM 3.375 GM in DEXTROSE/WATER 1 50ML.BAG IVPB STA (23:33)
[2017-11-26] MEDS ORDERED: VANCOMYCIN IV PER PHARMACY 1 EACH MISC MISCELLANE PRN (23:34)
[2017-11-26] MEDS: SODIUM CHLORIDE 0.9% 1,000 ML IV SCH (23:45)
[2017-11-27] MEDS ORDERED: VANCOMYCIN 1,750 MG in SODIUM CHLORIDE 0.9% 500 ML 500 ML IVPB ONE ×2
[2017-11-27] MEDS ORDERED: HYDROcodone/APAP 5-325MG 1 EACH TAB PO STA ×2 (00:49→00:54)
[2017-11-27] MEDS: HEPARIN SODIUM,PORCINE 5,000 UNIT/ML 1 ML VIAL SQ SCH ×3 (00:55→16:19)
[2017-11-27 01:22] LABS: Glucose,Whole Blood 128 mg/dL (75-99)
[2017-11-27 02:26] VITALS: BMI 43.4
[2017-11-27] MEDS: LEVOTHYROXINE 50 MCG TAB PO SCH (07:25)
[2017-11-27] MEDS ORDERED: INSULIN ASPART 100 UNIT/ML 1 ML 10 ML VIAL SQ SCH (07:30)
[2017-11-27 07:43] LABS: Glucose,Whole Blood 151 mg/dL (75-99)
[2017-11-27] MEDS: INSULIN DETEMIR 100 UNIT/ML 10 ML VIAL SQ SCH ×2 (08:37→21:25)
[2017-11-27] MEDS: PIPERACILLIN-TAZOBACTAM 3.375 GM in DEXTROSE/WATER 1 50ML.BAG IVPB SCH ×2 (08:38→16:19)
[2017-11-27] MEDS: amLODIPine 5 MG TAB PO SCH (08:38)
[2017-11-27] MEDS: VARENICLINE 0.5 MG TAB PO SCH ×2 (08:38→21:26)
[2017-11-27] MEDS: ASPIRIN 325 MG TAB PO SCH (08:38)
[2017-11-27] MEDS: LINAGLIPTIN 5 MG TABLET PO SCH (08:38)
[2017-11-27] MEDS: LOSARTAN 50 MG TAB PO SCH (08:38)
[2017-11-27] MEDS: SYMBICORT 160-4.5 MCG INHALER INHALATION SCH ×2 (08:42→22:14)
[2017-11-27] MEDS: ALBUTEROL NEBULIZED 2.5 MG/3 ML INHALATION PRN (08:42)
[2017-11-27 11:59] LABS: Glucose,Whole Blood 224 mg/dL (75-99)
[2017-11-27] MEDS: INSULIN ASPART 100 UNIT/ML 1 ML 10 ML VIAL SQ SCH ×3 (12:03→21:25)
[2017-11-27] MEDS: SODIUM CHLORIDE 0.9% 1,000 ML IV SCH (12:06)
[2017-11-27 13:11] LABS: Hemoglobin A1C 10.4 % (4.0-6.0)
--- NOTE | 2017-11-27 13:55 | CONS ---
DATE OF CONSULTATION: 11/27/2017 This is a 57-year-old diabetic female patient who came last night to the ER. Patient had a I and D of the right foot and she has been coming to the [facility]ound Clinic for followup. Patient noted some mild drainage. She has been admitted. She had some foreign body on admission in the past. She went for I and D of the right foot plantar aspect. MEDICAL HISTORY: History of diabetes, peripheral vascular disease. PHYSICAL EXAMINATION: Patient was seen in her room. NECK: Supple, trachea central. CHEST: Clear to auscultation. ABDOMEN: Soft. Femoral pulses are present. Patient's right foot has a open incision for from the previous I and D. Some mild drainage noted. PLAN: We will continue with IV antibiotic and excess silver and follow with you. MMODL / IJN: [id number] / MTDD
--- NOTE | 2017-11-27 15:06 | P.HPIM ---
History of Present Illness 56-year-old female history of diabetes who has had a wound infection the right foot for about the last month or so ever since getting a piece of metal in her heel. She's been wound clinic is been seen until today when she could not weight-bear. She is here for evaluation she denies any overt fevers chills or sweats he states the foot is getting worse with increased swelling to lower extremity she states she sleeps all time she also states she's had decreased urine output. He has no prior history of renal insufficiency or failure. He currently is not on any oral antibiotics. Patient was receiving antibiotics which she recently completed. Patient the has redness and cellulitis around the right the plantar wound. Patient's x-ray of the foot is suspicious for gas in that area because of which a vascular surgery evaluated the patient. Infectious disease will be consulted Review of Systems REVIEW OF SYSTEMS: CONSTITUTIONAL: No fever, no malaise, no fatigue. HEENT: No recent visual problems or hearing problems. Denied any sore throat. CARDIOVASCULAR: No chest pain, orthopnea, PND, no palpitations, no syncope. PULMONARY: No shortness of breath, no cough, no hemoptysis. GASTROINTESTINAL: No diarrhea, no nausea, no vomiting, no abdominal pain. Normoactive bowel sounds. NEUROLOGICAL: No headaches, no weakness, no numbness. HEMATOLOGICAL: Denies any bleeding or petechiae. GENITOURINARY: Denies any burning micturition, frequency, or urgency. MUSCULOSKELETAL/RHEUMATOLOGICAL: Denies any joint pain, swelling, or any muscle pain. As mentioned in HPI ENDOCRINE: Denies any polyuria or polydipsia. The rest of the 14-point review of systems is negative. Past Medical History Past Medical History: COPD, Diabetes Mellitus, Eye Disorder, Fibromyalgia, Hyperlipidemia, Hypertension, Musculoskeletal Disorder, Neurologic Disorder, Osteoarthritis (OA), Pneumonia, Skin Disorder, Sleep Apnea/CPAP/BIPAP, Thyroid Disorder, Vascular Disorder Additional Past Medical History / Comment(s): IDDM type II, diabetic neuropathy hands and feet bilaterally, States she thinks she has Sleep Apnea., bilateral carpal tunnel, vertigo, slight NOOKSACK , macular degeneration , hx. bronchitis, & pneumonia., sinus problems, Incontinent bowel and bladder., states scabs on upper arms. 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 Multi-Drug Resistant Organisms: None Reported Past Surgical History: No Surgical Hx Reported Additional Past Surgical History / Comment(s): Colonoscopy, PICC line, Angiogram with Arthrectomy and Femoral stent (2017) Past Anesthesia/Blood Transfusion Reactions: No Reported Reaction Past Psychological History: No Psychological Hx Reported Smoking Status: Current some day smoker Past Alcohol Use History: None Reported Additional Past Alcohol Use History / Comment(s): Pt started smoking in 1968, pt taking chantix, states she smokes about 3 cigarettes per day, used to smoke 2 ppd Past Drug Use History: None Reported - Past Family History Mother Family Medical History: Cancer Additional Family Medical History / Comment(s): Mother at 69yrs of age of lung cancer. Father Family Medical History: Cancer Additional Family Medical History / Comment(s): Father at 60 yrs of age of mesothelioma. Brother(s) Family Medical History: Coronary Artery Disease (CAD) Sister(s) Family Medical History: Hypertension Daughter(s) Family Medical History: No Reported History Son(s) Family Medical History: No Reported History Medications and Allergies Home Medications Medication Instructions Recorded Confirmed Type Gabapentin [Neurontin] 100 mg PO HS 03/27/16 11/26/17 History Losartan [Cozaar] 100 mg PO DAILY 03/27/16 11/26/17 History Aspirin 325 mg PO DAILY #90 tab 04/27/16 11/26/17 Rx Clopidogrel [Plavix] 75 mg PO DAILY #90 tab 04/27/16 11/26/17 Rx Insulin Aspart [NovoLOG Flexpen] 15 units SQ AC-TID 10/19/17 11/26/17 History Budesonide-Formot 160-4.5 Mcg 2 puff INHALATION RT-BID #1 inh 10/26/17 11/26/17 Rx [Symbicort 160-4.5 Mcg Inhaler] Insulin Detemir [Levemir Flextouch] 60 unit SQ BID 11/06/17 11/26/17 History Levothyroxine Sodium [Levoxyl] 50 mcg PO DAILY 11/06/17 11/26/17 History Linagliptin [Tradjenta] 5 mg PO DAILY 11/06/17 11/26/17 History amLODIPine [Norvasc] 5 mg PO DAILY 11/06/17 11/26/17 History Varenicline Tartrate [Chantix 0.5 mg PO DIRECTED 11/19/17 11/26/17 History Starter Pack] Albuterol Inhaler [Ventolin Hfa 1 - 2 puff INHALATION RT-Q6H PRN 11/26/17 History Inhaler] Allergies Allergy/AdvReac Type Severity Reaction Status Date / Time No Known Allergies Allergy Verified 11/26/17 20:17 Physical Exam Vitals: Vital Signs Temp Pulse Pulse Resp BP BP Pulse Ox 11/27/17 12:50 98.4 F 96 18 147/65 11/27/17 08:57 80 11/27/17 08:46 76 11/27/17 08:35 99.2 F 100 16 143/70 93 L 11/27/17 01:20 98.3 F 89 18 113/66 93 L 11/26/17 23:50 98.7 F 72 16 157/81 98 11/26/17 19:08 98.2 F 84 18 135/85 98 Intake and Output 11/26/17 11/27/17 11/27/17 22:59 06:59 14:59 Output Total 150 Balance -150 Output: Urine 150 Other: Voiding Method Incontinent Bedside Commode Diaper # Voids 1 Weight 111.13 kg 111.13 kg 111.13 kg PHYSICAL EXAMINATION: GENERAL: The patient is alert and oriented x3, not in any acute distress. Well developed, well nourished. HEENT: Pupils are round and equally reacting to light. EOMI. No scleral icterus. No conjunctival pallor. Normocephalic, atraumatic. No pharyngeal erythema. No thyromegaly. CARDIOVASCULAR: S1 and S2 present. No murmurs, rubs, or gallops. PULMONARY: Chest is clear to auscultation, no wheezing or crackles. ABDOMEN: Soft, nontender, nondistended, normoactive bowel sounds. No palpable organomegaly. MUSCULOSKELETAL: No joint swelling or deformity. EXTREMITIES: No cyanosis, clubbing, or pedal edema. She does have a right plantar ulcer with the surrounding cellulitis does appear to be infected NEUROLOGICAL: Gross neurological examination did not reveal any focal deficits. SKIN: No rashes. Results CBC & Chem 7: 11/26/17 20:56 10/15/18 20:56 Labs: Abnormal Lab Results - Last 24 Hours (Table) 11/26/17 11/26/17 11/26/17 Range/Units 20:56 20:56 20:56 WBC 21.6 H (3.8-10.6) k/uL Neutrophils # 18.4 H (1.3-7.7) k/uL Sodium 134 L (137-145) mmol/L BUN 29 H (7-17) mg/dL POC Glucose (mg/dL) (75-99) mg/dL Hemoglobin A1c (4.0-6.0) % CK-MB (CK-2) 3.2 H (0.0-2.4) ng/mL Albumin 3.1 L (3.5-5.0) g/dL 11/26/17 11/27/17 11/27/17 Range/Units 20:56 01:02 07:38 WBC (3.8-10.6) k/uL Neutrophils # (1.3-7.7) k/uL Sodium (137-145) mmol/L BUN (7-17) mg/dL POC Glucose (mg/dL) 128 H 151 H (75-99) mg/dL Hemoglobin A1c 10.4 H (4.0-6.0) % CK-MB (CK-2) (0.0-2.4) ng/mL Albumin (3.5-5.0) g/dL 11/27/17 Range/Units 11:47 WBC (3.8-10.6) k/uL Neutrophils # (1.3-7.7) k/uL Sodium (137-145) mmol/L BUN (7-17) mg/dL POC Glucose (mg/dL) 224 H (75-99) mg/dL Hemoglobin A1c (4.0-6.0) % CK-MB (CK-2) (0.0-2.4) ng/mL Albumin (3.5-5.0) g/dL Thrombosis Risk Factor Assmnt - Choose All That Apply Each Factor Represents 1 point: Age 41-60 years, Obesity (BMI >25) Thrombosis Risk Factor Assessment Total Risk Factor Score: 2 Thrombosis Risk Factor Assessment Level: Low Risk Assessment and Plan Plan: -Infected right plantar diabetic ulcer.: Patient had staph aureus which was MSSA pansensitive and laclericia adecarboxylata in the past both her pansensitive multiple antibiotics. Patient presently was started on Vanco and Zosyn and infectious disease will be consulted vascular surgery evaluated the patient because of some gas in the wound. - hyponatremia hypovolemic hyponatremia: Expected to improve with IV fluids -Type 2 diabetes mellitus uncontrolled blood sugars with hyperglycemia patient will be resumed on her home regimen titrate insulin depending on his blood sugars here -COPD without any acute examination a -hypertension -hyperlipidemia -Obesity -Depression for above-mentioned chronic medical problems patient will be resumed and continued on appropriate home medications
[2017-11-27] MEDS ORDERED: HYDROmorphone 1 MG/ML 1 ML SYRINGE IM PRN (15:49)
[2017-11-27 17:12] LABS: Glucose,Whole Blood 262 mg/dL (75-99)
--- NOTE | 2017-11-27 19:33 | CT ---
EXAMINATION TYPE: CT foot RT w con DATE OF EXAM: 11/27/2017 COMPARISON: None HISTORY: Foot pain CT DLP: mGycm Automated exposure control for dose reduction was used. CONTRAST: Contrast was Isovue 100 mL IV. FINDINGS: Images were obtained from the mid tibia to the bottom of the foot with intravenous contrast. There is some atherosclerotic vascular calcification. There are mild plantar and Achilles calcaneal s purs. There is extensive soft tissue air in the forefoot. There is extensive subcutaneous edema aroun d the lower leg extending into the foot. The tip of the toes is not entirely included on this exam. T here is more soft tissue air around the third and fourth MP joints. There appears to be soft tissue a ir bubbles in the base of the proximal phalanx of the third toe. There is some erosion apparently of the articular surface of the base of the proximal phalanx of the third toe. Metatarsals show no fract ure. There are small erosions on the of the third and fourth metatarsals. IMPRESSION: EXTENSIVE SUBCUTANEOUS EDEMA. SOFT TISSUE AIR AROUND THE FOREFOOT WITH SOME DESTRUCTIVE CHANGES IN TH E PROXIMAL THIRD TOE CONSISTENT WITH OSTEOMYELITIS.
[2017-11-27 21:06] LABS: Glucose,Whole Blood 245 mg/dL (75-99)
[2017-11-27] MEDS: VANCOMYCIN 1,750 MG in SODIUM CHLORIDE 0.9% 500 ML 500 ML IVPB SCH (21:27)
[2017-11-27] MEDS: GABAPENTIN 100 MG CAP PO SCH (21:27)
[2017-11-28] MEDS: HEPARIN SODIUM,PORCINE 5,000 UNIT/ML 1 ML VIAL SQ SCH ×3 (00:45→16:59)
[2017-11-28] MEDS: SODIUM CHLORIDE 0.9% 1,000 ML IV SCH ×2 (00:45→12:43)
[2017-11-28] MEDS: PIPERACILLIN-TAZOBACTAM 3.375 GM in DEXTROSE/WATER 1 50ML.BAG IVPB SCH ×4 (00:45→23:52)
[2017-11-28] MEDS ORDERED: VANCOMYCIN 1,750 MG in SODIUM CHLORIDE 0.9% 500 ML 500 ML IVPB SCH (02:00)
--- NOTE | 2017-11-28 05:37 | CONS ---
CONSULTATION DATE OF SERVICE: 11/27/2017 REASON FOR CONSULTATION: Right foot wound infection. HISTORY OF PRESENT ILLNESS: The patient is a 57-year-old female with past medical history significant for diabetes mellitus and history of left diabetic foot infection. The patient did have a nonhealing wound to her right foot plantar aspect where the patient has there for more than a month now. For the last few weeks, the area has become more swollen and red and the patient did have occasional dull aching pain to it especially when she walks on it. Intensity about 2 to 3 out of 10, and no radiation. The patient did have some chills but denies high-grade fever with worsening symptoms. She did present to the [facility] ER where the patient has been evaluated by the ER physician. On arrival to the ER, the patient's highest temperature has been 99.2. The patient did have a white count 21.6. Her creatinine has been normal. The patient did have blood cultures obtained. She has been started on vancomycin and Zosyn. Infectious Disease was consulted for further recommendation regarding antibiotic therapy. The patient did have x-rays of the foot obtained, which did show soft tissue throughout the ankle and emphysema. REVIEW OF SYSTEMS: CONSTITUTIONAL: Positive for weakness and some chills. EYES: No complaint. ENT: No complaint. RESPIRATORY: No complaint. CARDIOVASCULAR: No complaint. GENITOURINARY: No complaint. GASTROINTESTINAL: No complaint. MUSCULOSKELETAL: As per HPI. INTEGUMENTARY: As per HPI. PSYCHOLOGICAL: No complaint. ENDOCRINE: No complaint. NEUROLOGIC: No complaint. PAST MEDICAL HISTORY: Her past medical history is significant for diabetes mellitus, left diabetic foot infection, COPD, fibromyalgia, hyperlipidemia, hypertension, osteoarthritis, pneumonia. PAST SURGICAL HISTORY: Colonoscopy, angiogram with arthrectomy and femoral stent. SOCIAL HISTORY: Patient is currently a smoker. Rarely drinks. No drug use. FAMILY HISTORY: Mother of lung cancer age of 69. Father history of mesothelioma age of 60. ALLERGIES: No known drug allergies. MEDICATION: Medications currently include the patient is on Ventolin, Norvasc aspirin, Symbicort, Neurontin, heparin, Dilaudid, NovoLog, Levemir, Synthroid, Tradjenta, Cozaar, Narcan, Zosyn, vancomycin and Chantix. PHYSICAL EXAMINATION: On examination, blood pressure is 140/72 with a pulse of 101, temperature 99.2. She is 98% on room air. General description is middle-aged female up in the bed in no distress. No tachypnea or accessory muscle of respiration use. HEENT examination shows no pallor or scleral icterus. Oral mucous membrane is dry. No pharyngeal erythema or thrush. NECK: Trachea central. No thyromegaly. LUNGS: Unlabored breathing, clear to auscultation anteriorly. No wheeze or crackle. HEART: S1, S2. Regular rate and rhythm. ABDOMEN: Soft, no tenderness. No guarding or rigidity. EXTREMITIES: Right leg is swollen. The right foot is significantly swollen and red, warm to touch with the wound on the plantar aspect with some foul-smelling drainage. NEUROLOGICAL: Patient awake, alert, oriented x3. Mood and affect normal. LABS: BUN of 29, creatinine 0.95. Hemoglobin is 11.7. White count is 21.6. Blood culture obtained currently pending. Unfortunately, no wound cultures were done. DIAGNOSTIC IMPRESSION AND PLAN: Patient with right diabetic foot infection, likely Manny's grade 3 with extensive infection and concern for underlying osteomyelitis. We will need to cover for both gram-positive as well as gram-negative pathogen and the patient needs further imaging studies to rule out any underlying abscess or osteomyelitis that may need to be treated further by vascular surgery who is already on the case. PLAN: 1. We will obtain aerobic and anaerobic wound cultures. 2. Obtain a CT of the right foot to rule out any abscess that may need to be surgically debrided. 3. Vancomycin pharmacy to dose target of 15 while watching her kidney function closely. 4. Zosyn 3.375 q.8 hours while waiting for the culture to finalize. 5. Local wound care with an Aquacel dressing. 6. We will follow up on clinical condition and culture to further adjust medication if needed. Thank you for this consultation. Will follow this patient along with you. MMODL / IJN: [id number] /
[2017-11-28] MEDS: LEVOTHYROXINE 50 MCG TAB PO SCH (06:16)
[2017-11-28] MEDS: SYMBICORT 160-4.5 MCG INHALER INHALATION SCH ×2 (07:35→19:59)
[2017-11-28] MEDS: ALBUTEROL NEBULIZED 2.5 MG/3 ML INHALATION PRN (07:36)
[2017-11-28 07:44] LABS: Glucose,Whole Blood 183 mg/dL (75-99)
--- NOTE | 2017-11-28 07:47 | XR ---
EXAMINATION TYPE: XR chest 2V DATE OF EXAM: 11/28/2017 COMPARISON: Chest x-ray October 24, 2017 and older studies. HISTORY: Hypoxia. TECHNIQUE: Frontal and lateral views of the chest are obtained. FINDINGS: There is some reticular interstitial prominence bilaterally favoring chronic parenchymal c hange without suspicious new focal air space opacity, pleural effusion, or pneumothorax seen. The ca rdiac silhouette size remains enlarged with atherosclerotic thoracic aorta. And degenerative change r ight glenohumeral joint is redemonstrated. IMPRESSION: Chronic parenchymal change and cardiomegaly without acute pulmonary process.
[2017-11-28] MEDS: ASPIRIN 325 MG TAB PO SCH (08:09)
[2017-11-28] MEDS: LOSARTAN 50 MG TAB PO SCH (08:09)
[2017-11-28] MEDS: LINAGLIPTIN 5 MG TABLET PO SCH (08:09)
[2017-11-28] MEDS: amLODIPine 5 MG TAB PO SCH (08:09)
[2017-11-28] MEDS: VARENICLINE 0.5 MG TAB PO SCH ×2 (08:10→20:08)
[2017-11-28] MEDS: INSULIN DETEMIR 100 UNIT/ML 10 ML VIAL SQ SCH ×2 (08:13→20:07)
[2017-11-28] MEDS: INSULIN ASPART 100 UNIT/ML 1 ML 10 ML VIAL SQ SCH ×4 (08:14→20:07)
[2017-11-28 08:22] LABS: HGB 10.5 gm/dL (11.4-16.0); Hypochromasia Slight; MCH 30.7 pg (25.0-35.0); Mean Platelet Volume 7.8; Platelet Count 330 k/uL (150-450); RBC 3.44 m/uL (3.80-5.40); RDW 14.4 % (11.5-15.5)
[2017-11-28] MEDS: HYDROmorphone 1 MG/ML 1 ML SYRINGE IVP PRN ×3 (08:58→23:58)
[2017-11-28 09:30] LABS: Calcium 8.6 mg/dL (8.4-10.2); Potassium 4.6 mmol/L (3.5-5.1)
[2017-11-28 10:28] LABS: Erythrocyte Sedimentation Rate 111 mm/hr (0-20)
[2017-11-28] MEDS ORDERED: FUROSEMIDE 10 MG/ML 4 ML VIAL IV STA (10:32)
[2017-11-28 11:14] LABS: Glucose,Whole Blood 222 mg/dL (75-99)
--- NOTE | 2017-11-28 11:32 | P.CNPUL ---
History of Present Illness Consult date: 11/28/17 Reason for consult: dyspnea, COPD, hypoxemia, abnormal CXR/CT Chief complaint: Shortness of breath History of present illness: Pulmonary consult dated 11/28/2017 This is a 57-year-old female seen in the emergency room on November 26 for an infection and wound on her right foot. Since that time, she was discovered to have cellulitis and also some osteomyelitis of the foot. She didn't see one of the vascular surgeons at the wound clinic for that. Her primary care physician is Dr. Gallardo. We were called in because apparently last night her saturations dipped down below 90%. Oxygen was given to her at 3 L. Were asked to see her as to the etiology of her hypoxemic. Based on our evaluation exam and so forth , we believe is multifactorial in part related to some mild CHF as well as underlying COPD. She apparently knows that she has COPD. She apparently had been given a Symbicort inhaler in the past. She's never seen a lung doctor. She smoked for many years. Recently she stopped smoking with the assistance of Chantix. The patient has never seen a lung doctor in the past. She sees Dr. Gallardo and also Dr. Zhou in vascular surgery. The patient has been a heavy smoker for many years until recently. She has a history of hypertension diabetes obesity fibromyalgia hyperlipidemia DJD sleep apnea syndrome and hypothyroidism. She also likely has underlying COPD but she has not been seen by rodding anode worker has not had pulmonary function testing. Currently feeling much better. However orders to the nurse were to put the patient on Symbicort 160/4.5, 2 puffs twice a day, duo nebs, 4 times a day and when necessary, during the IV fluids down from 80 mL an hour down to KVO, and give the patient Lasix 40 mg IV push. The patient will need outpatient evaluation with one of the rodding anode worker once she is discharged from the hospital. Review of Systems A 14 point review of system is positive for shortness of breath. This is a better today given the fact that she was placed on oxygen therapy. Past Medical History Past Medical History: COPD, Diabetes Mellitus, Eye Disorder, Fibromyalgia, Hyperlipidemia, Hypertension, Musculoskeletal Disorder, Neurologic Disorder, Osteoarthritis (OA), Pneumonia, Skin Disorder, Sleep Apnea/CPAP/BIPAP, Thyroid Disorder, Vascular Disorder Additional Past Medical History / Comment(s): IDDM type II, diabetic neuropathy hands and feet bilaterally, States she thinks she has Sleep Apnea., bilateral carpal tunnel, vertigo, slight YUHAAVIATAM , macular degeneration , hx. bronchitis, & pneumonia., sinus problems, Incontinent bowel and bladder., states scabs on upper arms. 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 Multi-Drug Resistant Organisms: None Reported Past Surgical History: No Surgical Hx Reported Additional Past Surgical History / Comment(s): Colonoscopy, PICC line, Angiogram with Arthrectomy and Femoral stent (2017) Past Anesthesia/Blood Transfusion Reactions: No Reported Reaction Past Psychological History: No Psychological Hx Reported Smoking Status: Current some day smoker Past Alcohol Use History: None Reported Additional Past Alcohol Use History / Comment(s): Pt started smoking in 1968, pt taking chantix, states she smokes about 3 cigarettes per day, used to smoke 2 ppd Past Drug Use History: None Reported - Past Family History Mother Family Medical History: Cancer Additional Family Medical History / Comment(s): Mother at 69yrs of age of lung cancer. Father Family Medical History: Cancer Additional Family Medical History / Comment(s): Father at 60 yrs of age of mesothelioma. Brother(s) Family Medical History: Coronary Artery Disease (CAD) Sister(s) Family Medical History: Hypertension Daughter(s) Family Medical History: No Reported History Son(s) Family Medical History: No Reported History Medications and Allergies Home Medications Medication Instructions Recorded Confirmed Type Gabapentin [Neurontin] 100 mg PO HS 03/27/16 11/26/17 History Losartan [Cozaar] 100 mg PO DAILY 03/27/16 11/26/17 History Aspirin 325 mg PO DAILY #90 tab 04/27/16 11/26/17 Rx Clopidogrel [Plavix] 75 mg PO DAILY #90 tab 04/27/16 11/26/17 Rx Insulin Aspart [NovoLOG Flexpen] 15 units SQ AC-TID 10/19/17 11/26/17 History Budesonide-Formot 160-4.5 Mcg 2 puff INHALATION RT-BID #1 inh 10/26/17 11/26/17 Rx [Symbicort 160-4.5 Mcg Inhaler] Insulin Detemir [Levemir Flextouch] 60 unit SQ BID 11/06/17 11/26/17 History Levothyroxine Sodium [Levoxyl] 50 mcg PO DAILY 11/06/17 11/26/17 History Linagliptin [Tradjenta] 5 mg PO DAILY 11/06/17 11/26/17 History amLODIPine [Norvasc] 5 mg PO DAILY 11/06/17 11/26/17 History Varenicline Tartrate [Chantix 0.5 mg PO DIRECTED 11/19/17 11/26/17 History Starter Pack] Albuterol Inhaler [Ventolin Hfa 1 - 2 puff INHALATION RT-Q6H PRN 11/26/17 History Inhaler] Allergies Allergy/AdvReac Type Severity Reaction Status Date / Time No Known Allergies Allergy Verified 11/26/17 20:17 Physical Exam Osteopathic Statement: *. No significant issues noted on an osteopathic structural exam other than those noted in the History and Physical/Consult. Vitals: Vital Signs Temp Pulse Pulse Resp BP Pulse Ox 11/28/17 08:00 90 20 11/28/17 07:47 88 11/28/17 07:40 98.5 F 90 20 151/74 93 L 11/28/17 07:37 92 90 L 11/28/17 05:44 100.4 F H 91 16 132/64 92 L 11/28/17 05:18 94 16 81 L 11/28/17 00:45 98.9 F 94 18 156/84 93 L 11/27/17 22:50 98.7 F 99 20 157/64 99 11/27/17 15:27 99.2 F 101 H 16 140/72 98 11/27/17 12:50 98.4 F 96 18 147/65 Intake and Output 11/27/17 11/28/17 11/28/17 22:59 06:59 14:59 Output Total 1 100 Balance -1 -100 Output: Urine 100 Stool 1 Other: Voiding Method Bedside Commode Bedside Commode Bedside Commode Diaper Diaper Diaper # Voids 1 1 No acute distress, oriented 3. Nasal O2 in place at 3 L/m. HEENT examination is grossly unremarkable. Mucous membranes are moist. No oral lesions. Neck supple. Full range of motion. No adenopathy thyromegaly or neck vein distention. Cardiovascular examination reveals regular rhythm rate. S1-S2 normal. No S3 or S4. No discernible murmur noted. Heart sounds are distant. Lungs reveal diminished breath sounds throughout. There is some bibasilar crackles. There is some expiratory wheezes and rhonchi. Breath sounds are diminished. There is prolongation on forced maneuver. Abdomen is soft and bowel sounds are heard. No masses or tenderness. Extremities are intact. The right foot is currently wrapped and we did not undo the bandage to look at the foot. No cyanosis clubbing or significant edema. Skin is without rash or lesion. Neurologic examination is brief but nonfocal. Results - Laboratory Findings CBC and BMP: 11/28/17 08:08 11/28/17 08:08 Abnormal lab findings: Abnormal Labs 11/26/17 11/26/17 11/26/17 20:56 20:56 20:56 WBC 21.6 H RBC Hgb Hct Neutrophils # 18.4 H ESR Sodium 134 L BUN 29 H Creatinine Glucose POC Glucose (mg/dL) Hemoglobin A1c CK-MB (CK-2) 3.2 H Albumin 3.1 L 11/26/17 11/27/17 11/27/17 20:56 01:02 07:38 WBC RBC Hgb Hct Neutrophils # ESR Sodium BUN Creatinine Glucose POC Glucose (mg/dL) 128 H 151 H Hemoglobin A1c 10.4 H CK-MB (CK-2) Albumin 11/27/17 11/27/17 11/27/17 11:47 17:09 21:03 WBC RBC Hgb Hct Neutrophils # ESR Sodium BUN Creatinine Glucose POC Glucose (mg/dL) 224 H 262 H 245 H Hemoglobin A1c CK-MB (CK-2) Albumin 11/28/17 11/28/17 11/28/17 07:36 08:08 08:08 WBC 19.0 H RBC 3.44 L Hgb 10.5 L Hct 32.0 L Neutrophils # ESR 111 H Sodium 132 L BUN 40 H Creatinine 1.29 H Glucose 183 H POC Glucose (mg/dL) 183 H Hemoglobin A1c CK-MB (CK-2) Albumin 11/28/17 11:05 WBC RBC Hgb Hct Neutrophils # ESR Sodium BUN Creatinine Glucose POC Glucose (mg/dL) 222 H Hemoglobin A1c CK-MB (CK-2) Albumin - Diagnostic Findings Chest x-ray: report reviewed, image reviewed (Labs x-rays and medications are all reviewed.) Assessment and Plan Assessment: Assessment Shortness of breath with desaturation, likely multifactorial, in part related to underlying sleep apnea syndrome, COPD, and mild fluid overload. There also may be a component of obesity/hypoventilation syndrome pickwickian syndrome. History of diabetes mellitus Morbid obesity Cellulitis/osteomyelitis of the right foot History of fibromyalgia Hyperlipidemia Hypertension Hypothyroidism History of sleep apnea syndrome Multiple other medical problems and comorbidities Plan: Plan dated 11/28/2017 As above, the IV fluids were turned down from 80 mL an hour to KVO. In addition , the patient will get Lasix 40 mg IV push times one dose. In addition, the patient will be given DuoNeb's 4 times a day and when necessary and Symbicort 160/4.5, 2 puffs twice a day. Finally, an N-terminal proBNP was ordered. The patient will need follow-up with the rodding anode worker post discharge. She will need a 6 minute walk distance and also a complete pulmonary function test. She should be discharged home on the above medications including the DuoNeb and Symbicort. Additional recommendations and suggestions are forthcoming. For the time being, I would keep her on oxygen therapy. Time with Patient: Greater than 30
[2017-11-28 11:43] LABS: C Reactive Protein 240.1 mg/L (<10.0)
--- NOTE | 2017-11-28 13:09 | P.PN ---
Subjective 56-year-old female admitted the with infected left plantar surface ulcer. Patient is being treated for sepsis secondary to that and patient had a CAT scan of the foot which showed some restrictive changes in the proximal third toe consistent with osteomyelitis. Patient is presently on Zosyn and vancomycin wound cultures are pending. 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 Losartan will be continued this can you IV fluids tomorrow to etiology of Episode of shortness of breath is unknown although patient's lungs are clear to auscultation patient does not appear to be in heart failure. Patient is not feeling any significantly better compared to yesterday. Constitutional: Denied any fatigue denied any fever. Cardio vascular: denied any chest pain, palpitations Gastrointestinal denied any nausea vomiting Pulmonary: Denied any shortness of breath cough Neurologic denied any new focal deficits Objective - Vital Signs Vital signs: Vital Signs Temp 98.2 F 11/28/17 11:10 Pulse 82 11/28/17 11:10 Resp 20 11/28/17 11:10 BP 131/72 11/28/17 11:10 Pulse Ox 95 11/28/17 11:10 Intake & Output 11/27/17 11/28/17 11/28/17 18:59 06:59 18:59 Output Total 151 100 Balance -151 -100 Weight 111.13 kg Output: Urine 150 100 Stool 1 Other: Voiding Method Bedside Commode Bedside Commode Bedside Commode Diaper Diaper Diaper # Voids 1 1 - Exam PHYSICAL EXAMINATION: GENERAL: The patient is alert and oriented x3, not in any acute distress. Well developed, well nourished. HEENT: Pupils are round and equally reacting to light. EOMI. No scleral icterus. No conjunctival pallor. Normocephalic, atraumatic. No pharyngeal erythema. No thyromegaly. CARDIOVASCULAR: S1 and S2 present. No murmurs, rubs, or gallops. PULMONARY: Chest is clear to auscultation, no wheezing or crackles. ABDOMEN: Soft, nontender, nondistended, normoactive bowel sounds. No palpable organomegaly. MUSCULOSKELETAL: No joint swelling or deformity. EXTREMITIES: No cyanosis, clubbing, or pedal edema. She does have a right plantar ulcer with the surrounding cellulitis does appear to be infected NEUROLOGICAL: Gross neurological examination did not reveal any focal deficits. SKIN: No rashes. - Labs CBC & Chem 7: 11/28/17 08:08 11/28/17 08:08 Labs: Abnormal Lab Results - Last 24 Hours (Table) 11/26/17 11/27/17 11/27/17 Range/Units 20:56 17:09 21:03 WBC (3.8-10.6) k/uL RBC (3.80-5.40) m/uL Hgb (11.4-16.0) gm/dL Hct (34.0-46.0) % ESR (0-20) mm/hr Sodium (137-145) mmol/L BUN (7-17) mg/dL Creatinine (0.52-1.04) mg/dL Glucose (74-99) mg/dL POC Glucose (mg/dL) 262 H 245 H (75-99) mg/dL Hemoglobin A1c 10.4 H (4.0-6.0) % C-Reactive Protein (<10.0) mg/L 11/28/17 11/28/17 11/28/17 Range/Units 07:36 08:08 08:08 WBC 19.0 H (3.8-10.6) k/uL RBC 3.44 L (3.80-5.40) m/uL Hgb 10.5 L (11.4-16.0) gm/dL Hct 32.0 L (34.0-46.0) % ESR 111 H (0-20) mm/hr Sodium 132 L (137-145) mmol/L BUN 40 H (7-17) mg/dL Creatinine 1.29 H (0.52-1.04) mg/dL Glucose 183 H (74-99) mg/dL POC Glucose (mg/dL) 183 H (75-99) mg/dL Hemoglobin A1c (4.0-6.0) % C-Reactive Protein 240.1 H (<10.0) mg/L 11/28/17 Range/Units 11:05 WBC (3.8-10.6) k/uL RBC (3.80-5.40) m/uL Hgb (11.4-16.0) gm/dL Hct (34.0-46.0) % ESR (0-20) mm/hr Sodium (137-145) mmol/L BUN (7-17) mg/dL Creatinine (0.52-1.04) mg/dL Glucose (74-99) mg/dL POC Glucose (mg/dL) 222 H (75-99) mg/dL Hemoglobin A1c (4.0-6.0) % C-Reactive Protein (<10.0) mg/L Microbiology - Last 24 Hours (Table) 11/26/17 20:56 Blood Culture - Preliminary Blood No Growth after 24 hours Assessment and Plan Plan: -Infected right plantar diabetic ulcer with possible acute osteomyelitis. And sepsis secondary to that: Patient had staph aureus which was MSSA pansensitive and laclericia adecarboxylata in the past both her pansensitive multiple antibiotics. Patient presently was started on Vanco and Zosyn and infectious disease will be consulted vascular surgery evaluated the patient because of some gas in the wound. - hyponatremia hypovolemic hyponatremia: Improved with IV fluids which will be continued -Mild acute renal failure secondary to diuretics continue with IV fluids recheck the kidney function tomorrow -Type 2 diabetes mellitus uncontrolled blood sugars with hyperglycemia patient will be resumed on her home regimen titrate insulin depending on his blood sugars here -COPD with probable mild acute exacerbation leading to episode of shortness of breath today. -hypertension -hyperlipidemia -Obesity -Depression for above-mentioned chronic medical problems patient will be resumed and continued on appropriate home medications
[2017-11-28] MEDS: IPRATROPIUM-ALBUTEROL 3 ML NEB INHALATION SCH ×3 (13:33→19:59)
[2017-11-28 17:08] LABS: Glucose,Whole Blood 238 mg/dL (75-99)
[2017-11-28 20:02] LABS: Glucose,Whole Blood 265 mg/dL (75-99)
[2017-11-28] MEDS: GABAPENTIN 100 MG CAP PO SCH (20:02)
[2017-11-28] MEDS: VANCOMYCIN 1,750 MG in SODIUM CHLORIDE 0.9% 500 ML 500 ML IVPB SCH (21:25)
--- NOTE | 2017-11-28 22:02 | PN ---
PROGRESS NOTE DATE OF SERVICE: 11/28/2017 REASON FOR FOLLOWUP: Right diabetic foot infection with possible osteomyelitis, acute. INTERVAL HISTORY: The patient is currently afebrile. She is breathing comfortably. I was informed that the cultures that were done on admission has not been done, even though requested last night. Patient denies having any chest pain, shortness of breath or cough. No abdominal pain or any worsening pain to the right foot area. PHYSICAL EXAMINATION: Blood pressure 154/74 with a pulse of 95, temperature 98.2. She is 96% on 2 L nasal cannula. General description is a middle-aged female up in the bed in no distress. RESPIRATORY SYSTEM: Unlabored breathing. Clear to auscultation anteriorly. HEART: S1, S2. Regular rate and rhythm. ABDOMEN: Soft. No tenderness. Right foot dorsum is still swollen and red with some discoloration of the third and fourth toes. Wound base was clean. Cultures were obtained. LABS: Hemoglobin is 10.5, white count 19,000 with a BUN of 20, creatinine 1.29. Blood cultures have been negative so far. DIAGNOSTIC IMPRESSION AND PLAN: Patient with right diabetic foot infection with an infected wound with concern for underlying osteomyelitis, acute, involving the right third metatarsal head. Her care was discussed in detail with the vascular surgeon on the phone for possible evaluation and debridement as well as deep cultures. We will keep the patient on vancomycin and Zosyn at this point, watching her kidney function as well clinical course closely. Overall prognosis remains guarded. Continue with supportive care. MMJENNIFERL / ESTEEN: [id number] / MTDD
[2017-11-28] MEDS: IPRATROPIUM-ALBUTEROL 3 ML NEB INHALATION PRN (23:39)
[2017-11-29] MEDS: HEPARIN SODIUM,PORCINE 5,000 UNIT/ML 1 ML VIAL SQ SCH ×3 (03:22→16:59)
[2017-11-29] MEDS ORDERED: LIDOCAINE 1% INJ 10MG/ML (20 ML MDV) SQ ONE ×2 (06:00→15:03)
[2017-11-29 06:53] LABS: Glucose,Whole Blood 162 mg/dL (75-99)
[2017-11-29] MEDS: INSULIN ASPART 100 UNIT/ML 1 ML 10 ML VIAL SQ SCH ×4 (07:08→22:09)
[2017-11-29] MEDS: LEVOTHYROXINE 50 MCG TAB PO SCH (07:10)
[2017-11-29] MEDS: HYDROmorphone 1 MG/ML 1 ML SYRINGE IVP PRN ×3 (07:46→23:06)
[2017-11-29] MEDS: SYMBICORT 160-4.5 MCG INHALER INHALATION SCH ×2 (07:57→19:54)
[2017-11-29] MEDS: IPRATROPIUM-ALBUTEROL 3 ML NEB INHALATION SCH ×4 (07:57→19:54)
--- NOTE | 2017-11-29 08:30 | PN ---
PROGRESS NOTE This is 57-year-old female known to us from the wound clinic. Patient had a I and D of the right foot with foreign body removal. Patient has been admitted with some swelling of the dorsum aspect of the foot. CT scan was done which showed extensive subcutaneous edema and some soft tissue air around the fourth and fifth toe of 4 foot with some destructive changes in the proximal third toe consistent with osteomyelitis. Patient has some tenderness noted on the dorsal aspect of the foot. Open wound from the plantar aspect noted and cultures came so far negative. She has some discoloration noted on the third and fourth toe. PLAN: We will continue the intravenous antibiotic. I will have opinion from Dr. Oviedo for further evaluation and CAT scan finding. Prognosis is guarded. White cell count is 90,000. Further recommendation after the correct temperature made after the opinion from Dr. Oviedo. MMODL / ESTEEN: [id number] /
[2017-11-29 08:42] LABS: Albumin 2.6 g/dL (3.5-5.0); Calcium 8.6 mg/dL (8.4-10.2); Potassium 4.6 mmol/L (3.5-5.1); Total Bilirubin 0.4 mg/dL (0.2-1.3); Total Protein 6.2 g/dL (6.3-8.2)
[2017-11-29] MEDS: ASPIRIN 325 MG TAB PO SCH (09:01)
[2017-11-29] MEDS: LOSARTAN 50 MG TAB PO SCH (09:01)
[2017-11-29] MEDS: PIPERACILLIN-TAZOBACTAM 3.375 GM in DEXTROSE/WATER 1 50ML.BAG IVPB SCH ×2 (09:01→17:30)
[2017-11-29] MEDS: LINAGLIPTIN 5 MG TABLET PO SCH ×2 (09:01→11:55)
[2017-11-29] MEDS: amLODIPine 5 MG TAB PO SCH (09:02)
[2017-11-29] MEDS: VARENICLINE 0.5 MG TAB PO SCH ×2 (09:03→22:10)
[2017-11-29] MEDS ORDERED: FUROSEMIDE 10 MG/ML 4 ML VIAL IV STA (09:58)
[2017-11-29] MEDS: INSULIN DETEMIR 100 UNIT/ML 10 ML VIAL SQ SCH ×2 (10:46→22:09)
[2017-11-29 11:02] LABS: Basophils # (A) 0.1 k/uL (0-0.2); Basophils % (A) 0 %; Eosinophils # (A) 0.2 k/uL (0-0.7); Eosinophils % (A) 1 %; HCT 31.2 % (34.0-46.0); HGB 9.8 gm/dL (11.4-16.0); Hypochromasia Slight; Lymphocytes # (A) 0.8 k/uL (1.0-4.8); Lymphocytes % (A) 5 %; MCH 29.7 pg (25.0-35.0); MCHC 31.6 g/dL (31.0-37.0); Mean Platelet Volume 8.4; Monocytes # (A) 0.8 k/uL (0-1.0); Monocytes % (A) 5 %; Neutrophils # (A) 14.4 k/uL (1.3-7.7); Neutrophils % (A) 88 %; Platelet Count 298 k/uL (150-450); RBC 3.32 m/uL (3.80-5.40); RDW 14.5 % (11.5-15.5); WBC 16.4 k/uL (3.8-10.6)
--- NOTE | 2017-11-29 11:47 | P.PN ---
Subjective Progress Note Date: 11/29/17 Principal diagnosis: Acute hypoxic respiratory failure, multifactorial, COPD exacerbation, fluid volume overload, obesity/hypoventilation syndrome/sleep apnea syndrome Pulmonary consult dated 11/28/2017 This is a 57-year-old female seen in the emergency room on November 26 for an infection and wound on her right foot. Since that time, she was discovered to have cellulitis and also some osteomyelitis of the foot. She didn't see one of the vascular surgeons at the wound clinic for that. Her primary care physician is Dr. Gallardo. We were called in because apparently last night her saturations dipped down below 90%. Oxygen was given to her at 3 L. Were asked to see her as to the etiology of her hypoxemic. Based on our evaluation exam and so forth , we believe is multifactorial in part related to some mild CHF as well as underlying COPD. She apparently knows that she has COPD. She apparently had been given a Symbicort inhaler in the past. She's never seen a lung doctor. She smoked for many years. Recently she stopped smoking with the assistance of Chantix. The patient has never seen a lung doctor in the past. She sees Dr. Gallardo and also Dr. Zhou in vascular surgery. The patient has been a heavy smoker for many years until recently. She has a history of hypertension diabetes obesity fibromyalgia hyperlipidemia DJD sleep apnea syndrome and hypothyroidism. She also likely has underlying COPD but she has not been seen by haulage boss has not had pulmonary function testing. Currently feeling much better. However orders to the nurse were to put the patient on Symbicort 160/4.5, 2 puffs twice a day, duo nebs, 4 times a day and when necessary, during the IV fluids down from 80 mL an hour down to KVO, and give the patient Lasix 40 mg IV push. The patient will need outpatient evaluation with one of the haulage boss once she is discharged from the hospital. Progress note dated 11/29/2017 The patient is seen again today in the pediatric unit. She is currently awake and alert in no acute distress. She is breathing easier today as compared to yesterday. She is maintaining good O2 saturations in the low 90s on 3 L/m per nasal cannula. She's been afebrile. Hemodynamically stable. Blood cultures reveal no growth to date. Wound culture reveals no growth. White count 16.4. Hemoglobin 9.8. Creatinine 1.43. AST 61, ALT 57. She has been seen by orthopedics and vascular surgery. There is some discussion about possible removal of the fourth and fifth toe of the right foot. She remains on vancomycin and Zosyn. Objective - Vital Signs Vital signs: Vital Signs Temp 98.2 F 11/29/17 08:45 Pulse 90 11/29/17 11:15 Resp 16 11/29/17 11:15 BP 136/63 11/29/17 08:45 Pulse Ox 93 L 11/29/17 08:45 Intake & Output 11/28/17 11/29/17 11/29/17 18:59 06:59 18:59 Output Total 200 Balance -200 Output: Urine 200 Other: Voiding Method Bedside Commode Bedside Commode Diaper Diaper # Voids 2 1 - Exam No acute distress, oriented 3. Nasal O2 in place at 3 L/m. HEENT examination is grossly unremarkable. Mucous membranes are moist. No oral lesions. Neck supple. Full range of motion. No adenopathy thyromegaly or neck vein distention. Cardiovascular examination reveals regular rhythm rate. S1-S2 normal. No S3 or S4. No discernible murmur noted. Heart sounds are distant. Lungs reveal diminished breath sounds throughout. There is some bibasilar crackles. There is some expiratory wheezes and rhonchi. Breath sounds are diminished. There is prolongation on forced maneuver. Abdomen is soft and bowel sounds are heard. No masses or tenderness. Extremities are intact. The right foot is currently wrapped and we did not undo the bandage to look at the foot. No cyanosis clubbing or significant edema. Skin is without rash or lesion. Neurologic examination is brief but nonfocal. - Labs CBC & Chem 7: 11/29/17 07:54 11/29/17 07:54 Labs: Abnormal Lab Results - Last 24 Hours (Table) 11/28/17 11/28/17 11/28/17 Range/Units 08:08 16:59 20:00 WBC (3.8-10.6) k/uL RBC (3.80-5.40) m/uL Hgb (11.4-16.0) gm/dL Hct (34.0-46.0) % Neutrophils # (1.3-7.7) k/uL Lymphocytes # (1.0-4.8) k/uL Sodium (137-145) mmol/L BUN (7-17) mg/dL Creatinine (0.52-1.04) mg/dL Glucose (74-99) mg/dL POC Glucose (mg/dL) 238 H 265 H (75-99) mg/dL AST (14-36) U/L ALT (9-52) U/L Alkaline Phosphatase (38-126) U/L C-Reactive Protein 240.1 H (<10.0) mg/L Total Protein (6.3-8.2) g/dL Albumin (3.5-5.0) g/dL 11/29/17 11/29/17 11/29/17 Range/Units 06:50 07:54 07:54 WBC 16.4 H (3.8-10.6) k/uL RBC 3.32 L (3.80-5.40) m/uL Hgb 9.8 L (11.4-16.0) gm/dL Hct 31.2 L (34.0-46.0) % Neutrophils # 14.4 H (1.3-7.7) k/uL Lymphocytes # 0.8 L (1.0-4.8) k/uL Sodium 135 L (137-145) mmol/L BUN 43 H (7-17) mg/dL Creatinine 1.43 H (0.52-1.04) mg/dL Glucose 147 H (74-99) mg/dL POC Glucose (mg/dL) 162 H (75-99) mg/dL AST 61 H (14-36) U/L ALT 57 H (9-52) U/L Alkaline Phosphatase 175 H (38-126) U/L C-Reactive Protein (<10.0) mg/L Total Protein 6.2 L (6.3-8.2) g/dL Albumin 2.6 L (3.5-5.0) g/dL Microbiology - Last 24 Hours (Table) 11/28/17 13:50 Gram Stain - Final Foot - Right Wound Culture - Final 11/26/17 20:56 Blood Culture - Preliminary Blood No Growth after 48 hours 11/28/17 13:50 Anaerobic Culture - Preliminary Foot - Right Assessment and Plan Assessment: Assessment Shortness of breath with desaturation, likely multifactorial, in part related to underlying sleep apnea syndrome, COPD, and mild fluid overload. There also may be a component of obesity/hypoventilation syndrome pickwickian syndrome. History of diabetes mellitus Morbid obesity Cellulitis/osteomyelitis of the right foot History of fibromyalgia Hyperlipidemia Hypertension Hypothyroidism History of sleep apnea syndrome Multiple other medical problems and comorbidities Plan: The patient was seen and evaluated by Dr. Huang. She is improved today as compared to yesterday as far as her breathing is concerned. We'll continue with Symbicort, DuoNeb inhalations. She responded well to the IV Lasix. We'll await further input from vascular and orthopedic surgery. We'll continue to follow and make further recommendations based on her clinical status. I, the cosigning physician, performed a history & physical examination of the patient. Lungs sounds with bilateral end expiratory wheeze, diminished. Maintaining good O2 saturations in the 90s on 3 L/m per nasal cannula. I discussed the assessment and plan of care with my nurse practitioner, Tootie Jara. I attest to the above note as dictated by her.
[2017-11-29 12:06] LABS: Glucose,Whole Blood 130 mg/dL (75-99)
[2017-11-29] MEDS: SODIUM CHLORIDE 0.9% 1,000 ML IV SCH ×3 (12:08→22:09)
[2017-11-29] MEDS ORDERED: IV FLUID CONTINUATION 1,000 ML IV ONE (13:50)
[2017-11-29] MEDS ORDERED: IV FLUID CONTINUATION 350 ML IV ONE (13:51)
[2017-11-29] MEDS ORDERED: ONDANSETRON 4 MG/2 ML VIAL IVP ONE (14:05)
[2017-11-29] MEDS ORDERED: KETAMINE 10 MG/ML 20 ML VIAL ONE (14:45)
[2017-11-29] MEDS ORDERED: MIDAZOLAM 2 MG/2 ML VIAL ONE (14:45)
[2017-11-29] MEDS ORDERED: LIDOCAINE 1% INJ 10MG/ML (20 ML MDV) ONE (14:45)
[2017-11-29] MEDS ORDERED: fentaNYL (PF) 50 MCG/ML 2 ML AMP ONE (14:45)
[2017-11-29] MEDS ORDERED: PROPOFOL 10 MG/ML 20 ML VIAL IV ONE (14:45)
[2017-11-29 15:46] LABS: Glucose,Whole Blood 92 mg/dL (75-99)
[2017-11-29 17:25] LABS: Glucose,Whole Blood 92 mg/dL (75-99)
[2017-11-29 20:34] LABS: Glucose,Whole Blood 105 mg/dL (75-99)
[2017-11-29] MEDS ORDERED: VANCOMYCIN TROUGH DUE 1 EACH MISC MISCELLANE ONE (21:00)
--- NOTE | 2017-11-29 21:24 | PN ---
PROGRESS NOTE DATE OF SERVICE: 11/29/2017 This 57-year-old woman who was admitted with significant difficulties including left plantar surface ulcer underwent incision and drainage of the right foot and amputation of the third and fourth toes by Dr. Zhou today. The patient is being closely monitored. Patient is seen by Dr. Scruggs and Dr. Huang also. PAST MEDICAL HISTORY: Reviewed. REVIEW OF SYSTEMS: Cardiovascular: No angina or palpitations. Respirations: As mentioned earlier. GI: As mentioned earlier. : As mentioned earlier. CENTRAL NERVOUS SYSTEM: No numbness or weakness. CURRENT MEDICATIONS ARE: Reviewed and include: 1. DuoNeb q.i.d. and p.r.n. 2. Norvasc 5 mg daily. 3. Aspirin 320 daily. 4. Symbicort 160/4.5 . 5. Neurontin 100 mg q.h.s. 6. Heparin 5000 subcu q8. 7. Dilaudid. 8. Levemir 60 units subcu b.i.d. 9. Synthroid 50 mcg p.o. daily. 10.Cozaar 50 mg p.o. daily. 11.Vancomycin. 12.Zosyn. 13.Chantix. PHYSICAL EXAMINATION: GENERAL: The patient is alert, oriented x3. VITAL SIGNS: The pulse is 92. The blood pressure is 106/69, respirations 16, temp 99.1, pulse ox 94% on 2 L. HEENT is conjunctivae normal. Oral mucosa moist. NECK is no jugular venous distention. No carotid bruit. No lymph node enlargement. CARDIOVASCULAR SYSTEM: S1, S2. RESPIRATORY: Breath sounds diminished in the bases. No rhonchi. No crackles. ABDOMEN is soft, obese, nontender. No mass palpable. LEGS: Status post amputation of third and four toes on the left foot. LABS: WBC 16, hemoglobin 9.2, sodium 135, and AST/ALT noted. ASSESSMENT: 1. Diabetic foot, right foot with incision and drainage and amputation of the 3rd and 4th toes on the right foot. 2. Sepsis, possible osteomyelitis and sepsis secondary to Methicillin-sensitive Staphylococcus aureus. 3. Hyponatremia. 4. Mild acute renal failure. 5. Diabetes mellitus type 2. 6. Chronic obstructive pulmonary disease. 7. Hypertension. 8. Hyperlipidemia. 9. Obesity. 10.Depression. 11.Increased AST/ALT. 12.Increased creatinine with chronic kidney stage 3. 13.Obesity with body mass of 43.4. 14.Gait dysfunction. RECOMMENDATIONS AND DISCUSSION: In this 57-year-old woman who presented with multiple complex medical issues, we will monitor the patient closely, continue the current medications, management and symptomatic treatment. Otherwise, at this time, I recommend continue the broad- spectrum IV antibiotics and resume the rest of the medication. Monitor fluid and electrolytes balance closely. DVT prophylaxis. Closely follow with Infectious Disease and vascular surgery. Depending upon the cultures and the patient's activity, I would also recommend PT/OT evaluation also and also arrange outpatient antibiotic also. The prognosis guarded because of multiple complex medical issues. Further recommendations to follow. Copy of dictation forwarded to Dr. Gallardo who is the primary care physician. DON / EMILEE: [id number] / MTDSandra
--- NOTE | 2017-11-29 21:54 | OP ---
OPERATIVE REPORT PREOPERATIVE DIAGNOSIS: Wet gangrene of the right foot, 3rd and 4th toe, with marked redness of the dorsal aspect of the right foot. POSTOPERATIVE DIAGNOSIS: Wet gangrene of the right foot, 3rd and 4th toe, with marked redness of the dorsal aspect of the right foot. OPERATION: Amputation of the 3rd and 4th toe at the level of the 3rd and 4th metatarsal. DESCRIPTION OF PROCEDURE: This patient was brought to the operating room. The right foot was prepped and draped in sterile manner. Under IV sedation and local anesthesia, incision was made on the dorsal aspect of the foot at the base of the proximal phalanx, deepened through skin, fat, and fascia. Then posterior flap incision was made, which was deepened through skin, fat and fascia. The flexor and extensor tendons were divided. The head of the metatarsal of the 3rd and 4th were divided with bone cutter and 3rd and 4th toe were removed. There was some necrotic tissue present, which was also excised with a sharp knife. Some bleeding points were controlled with suture ligator. The wound was copiously irrigated with hydrogen peroxide and saline. We took the deep culture from the wound. Dressing applied. Patient tolerated the procedure well. MMODL / IJN: [id number] /
[2017-11-29] MEDS: GABAPENTIN 100 MG CAP PO SCH (22:09)
--- NOTE | 2017-11-29 22:33 | PN ---
PROGRESS NOTE DATE OF SERVICE: 11/29/2017. REASON FOR FOLLOWUP: Right diabetic foot infection. INTERVAL HISTORY: The patient was taken to the ER today and is status post debridement of the right foot with amputation of his toe. The patient tolerated the procedure. Pain in the postop period. The patient has been afebrile, breathing comfortably. Denies having any chest pain, shortness of breath or cough. No abdominal pain or diarrhea. EXAMINATION: Blood pressure 105/50 with a pulse of 97, temperature 98.8. She is 93% on room air. General description is a middle aged female lying in bed in no distress. Respiratory system: Unlabored breathing, clear to auscultation anteriorly. Heart S1, S2 regular rate and rhythm. Abdomen is soft, no tenderness. Right foot is currently dressed up. No obvious drainage on the dressing. LABS: Hemoglobin 9.8, white count 16.4, BUN of 43, creatinine is 1.43. Wound cultures so far pending. DIAGNOSTIC IMPRESSION AND PLAN: Patient with right diabetic foot infection with underlying osteomyelitis of the 3rd metatarsal head, status post amputation and deep debridement with cultures hopefully obtained in the OR. Those will be followed to adjust antibiotic further. Keep the patient on vancomycin and Zosyn at this point. Continue supportive care. MMODL / IJN: [id number] /
[2017-11-29] MEDS: IPRATROPIUM-ALBUTEROL 3 ML NEB INHALATION PRN (23:56)
[2017-11-30] MEDS: VANCOMYCIN 1,750 MG in SODIUM CHLORIDE 0.9% 500 ML 500 ML IVPB SCH ×2 (00:13→23:37)
[2017-11-30] MEDS: HEPARIN SODIUM,PORCINE 5,000 UNIT/ML 1 ML VIAL SQ SCH ×4 (01:06→23:37)
[2017-11-30] MEDS: PIPERACILLIN-TAZOBACTAM 3.375 GM in DEXTROSE/WATER 1 50ML.BAG IVPB SCH ×4 (01:07→23:37)
[2017-11-30] MEDS: LEVOTHYROXINE 50 MCG TAB PO SCH (05:20)
[2017-11-30 06:56] LABS: Glucose,Whole Blood 51 mg/dL (75-99)
[2017-11-30 07:13] LABS: Glucose,Whole Blood 72 mg/dL (75-99)
[2017-11-30 07:48] LABS: Basophils # (A) 0.1 k/uL (0-0.2); Basophils % (A) 0 %; Eosinophils # (A) 0.2 k/uL (0-0.7); Eosinophils % (A) 1 %; HGB 9.3 gm/dL (11.4-16.0); Hypochromasia Slight; Lymphocytes # (A) 0.8 k/uL (1.0-4.8); Lymphocytes % (A) 5 %; MCH 30.4 pg (25.0-35.0); MCHC 32.1 g/dL (31.0-37.0); MCV 94.6 fL (80.0-100.0); Mean Platelet Volume 7.7; Monocytes # (A) 0.8 k/uL (0-1.0); Monocytes % (A) 5 %; Neutrophils # (A) 13.2 k/uL (1.3-7.7); Neutrophils % (A) 87 %; Platelet Count 329 k/uL (150-450); RBC 3.07 m/uL (3.80-5.40); RDW 14.6 % (11.5-15.5); WBC 15.3 k/uL (3.8-10.6)
[2017-11-30] MEDS: HYDROmorphone 1 MG/ML 1 ML SYRINGE IVP PRN ×3 (07:57→23:37)
[2017-11-30 07:58] LABS: Calcium 8.1 mg/dL (8.4-10.2); Potassium 4.1 mmol/L (3.5-5.1)
[2017-11-30] MEDS: GABAPENTIN 100 MG CAP PO SCH (07:58)
[2017-11-30] MEDS: amLODIPine 5 MG TAB PO SCH (07:58)
[2017-11-30] MEDS: LOSARTAN 50 MG TAB PO SCH (07:58)
[2017-11-30] MEDS: ASPIRIN 325 MG TAB PO SCH (07:58)
[2017-11-30] MEDS: VARENICLINE 0.5 MG TAB PO SCH ×2 (07:59→21:37)
[2017-11-30] MEDS: INSULIN ASPART 100 UNIT/ML 1 ML 10 ML VIAL SQ SCH ×4 (07:59→21:36)
--- NOTE | 2017-11-30 08:58 | PN ---
PROGRESS NOTE Patient is a 57-year-old diabetic female. Patient came with right foot third and fourth toe wet gangrene. Patient went for ray amputation yesterday of the third and fourth toe. Today we have changed the dressing. PLAN: Will place Aquacel Silver and will arrange for VAC to the right foot and continue with IV antibiotics. MMODL / IJN: [id number] /
[2017-11-30] MEDS: IPRATROPIUM-ALBUTEROL 3 ML NEB INHALATION SCH ×4 (09:07→20:18)
[2017-11-30] MEDS: SYMBICORT 160-4.5 MCG INHALER INHALATION SCH ×2 (09:07→20:19)
[2017-11-30] MEDS: INSULIN DETEMIR 100 UNIT/ML 10 ML VIAL SQ SCH ×2 (09:26→21:36)
[2017-11-30] MEDS: SODIUM CHLORIDE 0.9% 1,000 ML IV SCH ×2 (09:27→17:32)
[2017-11-30] MEDS ORDERED: methylPREDNISolone ACETATE 80 MG/ML 1 ML VIAL IM STA (10:33)
[2017-11-30] MEDS ORDERED: methylPREDNISolone ACETATE 40 MG/ML 1 ML VIAL IM STA (10:46)
[2017-11-30 11:20] LABS: Glucose,Whole Blood 145 mg/dL (75-99)
--- NOTE | 2017-11-30 11:22 | P.PN ---
Subjective Progress Note Date: 11/30/17 Principal diagnosis: Acute hypoxic respiratory failure, multifactorial, COPD exacerbation, fluid volume overload, obesity/hypoventilation syndrome/sleep apnea syndrome Pulmonary consult dated 11/28/2017 This is a 57-year-old female seen in the emergency room on November 26 for an infection and wound on her right foot. Since that time, she was discovered to have cellulitis and also some osteomyelitis of the foot. She didn't see one of the vascular surgeons at the wound clinic for that. Her primary care physician is Dr. Gallardo. We were called in because apparently last night her saturations dipped down below 90%. Oxygen was given to her at 3 L. Were asked to see her as to the etiology of her hypoxemic. Based on our evaluation exam and so forth , we believe is multifactorial in part related to some mild CHF as well as underlying COPD. She apparently knows that she has COPD. She apparently had been given a Symbicort inhaler in the past. She's never seen a lung doctor. She smoked for many years. Recently she stopped smoking with the assistance of Chantix. The patient has never seen a lung doctor in the past. She sees Dr. Gallardo and also Dr. Zhou in vascular surgery. The patient has been a heavy smoker for many years until recently. She has a history of hypertension diabetes obesity fibromyalgia hyperlipidemia DJD sleep apnea syndrome and hypothyroidism. She also likely has underlying COPD but she has not been seen by headline writer has not had pulmonary function testing. Currently feeling much better. However orders to the nurse were to put the patient on Symbicort 160/4.5, 2 puffs twice a day, duo nebs, 4 times a day and when necessary, during the IV fluids down from 80 mL an hour down to KVO, and give the patient Lasix 40 mg IV push. The patient will need outpatient evaluation with one of the headline writer once she is discharged from the hospital. Progress note dated 11/29/2017 The patient is seen again today in the pediatric unit. She is currently awake and alert in no acute distress. She is breathing easier today as compared to yesterday. She is maintaining good O2 saturations in the low 90s on 3 L/m per nasal cannula. She's been afebrile. Hemodynamically stable. Blood cultures reveal no growth to date. Wound culture reveals no growth. White count 16.4. Hemoglobin 9.8. Creatinine 1.43. AST 61, ALT 57. She has been seen by orthopedics and vascular surgery. There is some discussion about possible removal of the fourth and fifth toe of the right foot. She remains on vancomycin and Zosyn. Progress note dated 11/30/2017 The patient is seen again today on the regular surgical floor. She is now status post dictation of the third and fourth toe at the level of the third and fourth metatarsal secondary to wet gangrene of the right foot. She is currently sitting up in a chair at the bedside. Her right foot dressing is dry and intact. She is awake and alert in no acute distress. Cultures of the right foot are pending. Blood culture reveals no growth after 72 hours. White count 15.3. Hemoglobin 9.3. Creatinine 1.43. Temperature 99.1. Maintain O2 saturations in the low 90s on 4 L/m per nasal cannula. She's hemodynamically stable. She remains on Zosyn and vancomycin. He does have some loose nonproductive cough. Objective - Vital Signs Vital signs: Vital Signs Temp 99.1 F 11/30/17 01:12 Pulse 92 11/30/17 01:12 Resp 17 11/30/17 01:12 BP 126/72 11/30/17 01:12 Pulse Ox 91 L 11/30/17 01:12 Intake & Output 11/29/17 11/30/17 11/30/17 18:59 06:59 18:59 Intake Total 500 400 240 Output Total 60 Balance 440 400 240 Intake: IV 500 Intake, IV Titration 400 Amount Sodium Chloride 0.9% 1, 400 000 ml @ 100 mls/hr IV . Q10H [facility] Rx#:[id number] Oral 240 Output: Urine 50 Estimated Blood Loss 10 Other: Voiding Method Diaper Bedside Commode Bedpan Incontinent # Voids 1 2 - Exam No acute distress, oriented 3. Nasal O2 in place at 3 L/m. HEENT examination is grossly unremarkable. Mucous membranes are moist. No oral lesions. Neck supple. Full range of motion. No adenopathy thyromegaly or neck vein distention. Cardiovascular examination reveals regular rhythm rate. S1-S2 normal. No S3 or S4. No discernible murmur noted. Heart sounds are distant. Lungs reveal diminished breath sounds throughout. There is some bibasilar crackles. There is some expiratory wheezes and rhonchi. Breath sounds are diminished. There is prolongation on forced maneuver. Abdomen is soft and bowel sounds are heard. No masses or tenderness. Extremities are intact. The right foot is currently wrapped status post amputation of the right third and fourth toe. No cyanosis clubbing or significant edema. Skin is without rash or lesion. Neurologic examination is brief but nonfocal. - Labs CBC & Chem 7: 11/30/17 07:18 11/30/17 07:18 Labs: Abnormal Lab Results - Last 24 Hours (Table) 11/29/17 11/29/17 11/30/17 Range/Units 12:03 20:21 06:32 WBC (3.8-10.6) k/uL RBC (3.80-5.40) m/uL Hgb (11.4-16.0) gm/dL Hct (34.0-46.0) % Neutrophils # (1.3-7.7) k/uL Lymphocytes # (1.0-4.8) k/uL BUN (7-17) mg/dL Creatinine (0.52-1.04) mg/dL Glucose (74-99) mg/dL POC Glucose (mg/dL) 130 H 105 H 51 L (75-99) mg/dL Calcium (8.4-10.2) mg/dL 11/30/17 11/30/17 11/30/17 Range/Units 07:01 07:18 07:18 WBC 15.3 H (3.8-10.6) k/uL RBC 3.07 L (3.80-5.40) m/uL Hgb 9.3 L (11.4-16.0) gm/dL Hct 29.0 L (34.0-46.0) % Neutrophils # 13.2 H (1.3-7.7) k/uL Lymphocytes # 0.8 L (1.0-4.8) k/uL BUN 35 H (7-17) mg/dL Creatinine 1.43 H (0.52-1.04) mg/dL Glucose 64 L (74-99) mg/dL POC Glucose (mg/dL) 72 L (75-99) mg/dL Calcium 8.1 L (8.4-10.2) mg/dL Microbiology - Last 24 Hours (Table) 11/29/17 15:15 Gram Stain - Preliminary Foot - Right Wound Culture - Preliminary 11/29/17 15:15 Gram Stain - Preliminary Foot - Right Wound Culture - Preliminary 11/29/17 15:15 Anaerobic Culture - Preliminary Foot - Right 11/29/17 15:15 Anaerobic Culture - Preliminary Foot - Right 11/26/17 20:56 Blood Culture - Preliminary Blood No Growth after 72 hours 11/28/17 13:50 Gram Stain - Final Foot - Right Wound Culture - Final Assessment and Plan Assessment: Assessment Shortness of breath with desaturation, likely multifactorial, in part related to underlying sleep apnea syndrome, COPD, and mild fluid overload. There also may be a component of obesity/hypoventilation syndrome pickwickian syndrome. History of diabetes mellitus Morbid obesity Cellulitis/osteomyelitis of the right foot, status post amputation of the right third and fourth toe. Postoperative day #1. History of fibromyalgia Hyperlipidemia Hypertension Hypothyroidism History of sleep apnea syndrome Multiple other medical problems and comorbidities Plan: The patient was seen and evaluated by Dr. Huang. We'll continue with Symbicort , DuoNeb inhalations. We will give her a Depo-Medrol 80 mg IM injection. Start Medrol Dosepak tomorrow. Add Mucinex. We'll continue to follow and make further recommendations based on her clinical status. I, the cosigning physician, performed a history & physical examination of the patient. Lungs sounds with bilateral end expiratory wheeze, diminished. Maintaining good O2 saturations in the 90s on 4 L/m per nasal cannula. I discussed the assessment and plan of care with my nurse practitioner, Tootie Jara. I attest to the above note as dictated by her.
[2017-11-30] MEDS: guaiFENesin 600 MG TABLET.ER PO SCH ×2 (11:50→21:36)
[2017-11-30] MEDS: IPRATROPIUM-ALBUTEROL 3 ML NEB INHALATION PRN (12:12)
[2017-11-30 18:23] LABS: Glucose,Whole Blood 175 mg/dL (75-99)
--- NOTE | 2017-11-30 18:55 | PN ---
PROGRESS NOTE DATE OF SERVICE: 11/30/2017 This 57-year-old woman is admitted with diabetic foot. Also had sepsis. Patient had surgery by Dr. Zhou with amputation of 3rd and 4th toes. No chest pain. No palpitations. No fever. EXAM: Alert and oriented times three. Pulse 90, blood pressure 155/74, respiration 16, temperature 98.2, pulse ox 98% on room air. HEENT: Conjunctivae normal. NECK:No jugular venous distention. CARDIOVASCULAR SYSTEMS: S1, S2. RESPIRATION: Breath sounds diminished in the bases. No rhonchi. ABDOMEN soft. LEGS status post surgery right foot. NERVOUS SYSTEM: No focal deficits. LABS: WBC 15.3, hemoglobin 9.8, creatinine is 1.43. Other labs are noted. ASSESSMENT: 1. Diabetic foot, right foot with incision and drainage and amputation of 3rd and 4th toes of right foot. 2. Sepsis, possible osteomyelitis, sepsis secondary to Methicillin-sensitive Staphylococcus aureus. 3. Hyponatremia. 4. Mild acute renal failure. 5. Diabetes mellitus type 2. 6. Chronic obstructive pulmonary disease. 7. Hypertension. 8. Hyperlipidemia. 9. Obesity. 10.Depression. 11.Increased AST/ALT. 12.Increased creatinine with chronic kidney stage 3. 13.Obesity with body mass index 43.4. 14.Gait dysfunction. RECOMMENDATIONS AND DISCUSSION: Recommend to continue current medications, management and symptomatic treatment. Otherwise, at this time, continue the antibiotics. Monitor labs closely. Prognosis guarded because of multiple complex medical issues. Further recommendations to follow. MMODL / IJN: [id number] /
[2017-11-30 20:35] LABS: Glucose,Whole Blood 197 mg/dL (75-99)
[2017-11-30] MEDS: SENNOSIDES 8.6 MG TAB PO SCH (21:37)
[2017-12-01] MEDS: IPRATROPIUM-ALBUTEROL 3 ML NEB INHALATION PRN (04:56)
[2017-12-01] MEDS: LEVOTHYROXINE 50 MCG TAB PO SCH (05:25)
[2017-12-01] MEDS: SODIUM CHLORIDE 0.9% 1,000 ML IV SCH ×3 (05:25→21:01)
[2017-12-01 07:07] LABS: Glucose,Whole Blood 185 mg/dL (75-99)
[2017-12-01 07:42] LABS: Basophils # (A) 0.1 k/uL (0-0.2); Basophils % (A) 1 %; Eosinophils # (A) 0.3 k/uL (0-0.7); Eosinophils % (A) 2 %; HCT 31.8 % (34.0-46.0); HGB 9.9 gm/dL (11.4-16.0); Hypochromasia Moderate; Lymphocytes % (A) 6 %; MCH 29.5 pg (25.0-35.0); MCHC 31.1 g/dL (31.0-37.0); MCV 94.9 fL (80.0-100.0); Mean Platelet Volume 7.6; Monocytes # (A) 0.8 k/uL (0-1.0); Monocytes % (A) 5 %; Neutrophils # (A) 13.7 k/uL (1.3-7.7); Neutrophils % (A) 84 %; Platelet Count 384 k/uL (150-450); RBC 3.35 m/uL (3.80-5.40); RDW 14.5 % (11.5-15.5); WBC 16.2 k/uL (3.8-10.6)
--- NOTE | 2017-12-01 07:44 | PN ---
PROGRESS NOTE DATE OF SERVICE: 11/30/2017. REASON FOR FOLLOWUP: Right diabetic foot infection Sheila's Grade 3. INTERVAL HISTORY: The patient is currently afebrile. She is breathing comfortably. Denies any chest pain, shortness of breath or cough. No abdominal pain or any worsening pain in the right foot area. EXAMINATION: Blood pressure 152/83 with a pulse of 90, temperature 98.3. General description is a middle-aged female lying in bed in no distress. Respiratory system: Unlabored breathing. Clear to auscultation anteriorly. Heart S1, S2. Regular rate and rhythm. Abdomen is soft. No tenderness. Right foot: The patient does have a wound on the dorsum of the right foot in addition to the wound at the amputation site of the 3rd and 4th toe. LABS: Hemoglobin is 9.3 with white count 15.3, BUN of 35, creatinine 1.43. Wound cultures with gram-negative bacilli. DIAGNOSTIC IMPRESSION AND PLAN: Patient with right diabetic foot infection Sheila's Grade 3 with underlying osteomyelitis status post amputation of the 3rd and 4th toe. The patient at this time is covered with Zosyn along with vancomycin that will be continued while waiting for the culture to finalize to determine her discharge antibiotic. The patient would likely need a PICC line for outpatient IV antibiotic therapy. Local care to continue per surgery. Family present at bedside. Questions were answered. MMODL / IJN: [id number] /
[2017-12-01 07:56] LABS: Calcium 8.1 mg/dL (8.4-10.2)
[2017-12-01] MEDS: PIPERACILLIN-TAZOBACTAM 3.375 GM in DEXTROSE/WATER 1 50ML.BAG IVPB SCH ×2 (08:14→16:17)
[2017-12-01] MEDS: HEPARIN SODIUM,PORCINE 5,000 UNIT/ML 1 ML VIAL SQ SCH ×2 (08:14→16:17)
[2017-12-01] MEDS: ASPIRIN 325 MG TAB PO SCH (08:14)
[2017-12-01] MEDS: INSULIN ASPART 100 UNIT/ML 1 ML 10 ML VIAL SQ SCH ×4 (08:14→20:59)
[2017-12-01] MEDS: amLODIPine 5 MG TAB PO SCH (08:14)
[2017-12-01] MEDS: guaiFENesin 600 MG TABLET.ER PO SCH ×2 (08:15→21:00)
[2017-12-01] MEDS: SYMBICORT 160-4.5 MCG INHALER INHALATION SCH (08:52)
[2017-12-01] MEDS: IPRATROPIUM-ALBUTEROL 3 ML NEB INHALATION SCH ×4 (08:52→20:50)
[2017-12-01] MEDS ORDERED: methylPREDNISolone 4 MG TAB PO SCH (09:00)
[2017-12-01] MEDS: INSULIN DETEMIR 100 UNIT/ML 10 ML VIAL SQ SCH ×2 (09:27→20:59)
[2017-12-01] MEDS: LOSARTAN 50 MG TAB PO SCH (09:27)
[2017-12-01] MEDS: VARENICLINE 0.5 MG TAB PO SCH ×2 (09:28→21:01)
[2017-12-01 12:15] LABS: Glucose,Whole Blood 244 mg/dL (75-99)
--- NOTE | 2017-12-01 12:30 | P.PN ---
Subjective Progress Note Date: 12/01/17 Principal diagnosis: Acute hypoxic respiratory failure, multifactorial, COPD exacerbation, fluid volume overload, obesity/hypoventilation syndrome/sleep apnea syndrome Pulmonary consult dated 11/28/2017 This is a 57-year-old female seen in the emergency room on November 26 for an infection and wound on her right foot. Since that time, she was discovered to have cellulitis and also some osteomyelitis of the foot. She didn't see one of the vascular surgeons at the wound clinic for that. Her primary care physician is Dr. Gallardo. We were called in because apparently last night her saturations dipped down below 90%. Oxygen was given to her at 3 L. Were asked to see her as to the etiology of her hypoxemic. Based on our evaluation exam and so forth , we believe is multifactorial in part related to some mild CHF as well as underlying COPD. She apparently knows that she has COPD. She apparently had been given a Symbicort inhaler in the past. She's never seen a lung doctor. She smoked for many years. Recently she stopped smoking with the assistance of Chantix. The patient has never seen a lung doctor in the past. She sees Dr. Gallardo and also Dr. Zhou in vascular surgery. The patient has been a heavy smoker for many years until recently. She has a history of hypertension diabetes obesity fibromyalgia hyperlipidemia DJD sleep apnea syndrome and hypothyroidism. She also likely has underlying COPD but she has not been seen by skull splitter has not had pulmonary function testing. Currently feeling much better. However orders to the nurse were to put the patient on Symbicort 160/4.5, 2 puffs twice a day, duo nebs, 4 times a day and when necessary, during the IV fluids down from 80 mL an hour down to KVO, and give the patient Lasix 40 mg IV push. The patient will need outpatient evaluation with one of the skull splitter once she is discharged from the hospital. Progress note dated 11/29/2017 The patient is seen again today in the pediatric unit. She is currently awake and alert in no acute distress. She is breathing easier today as compared to yesterday. She is maintaining good O2 saturations in the low 90s on 3 L/m per nasal cannula. She's been afebrile. Hemodynamically stable. Blood cultures reveal no growth to date. Wound culture reveals no growth. White count 16.4. Hemoglobin 9.8. Creatinine 1.43. AST 61, ALT 57. She has been seen by orthopedics and vascular surgery. There is some discussion about possible removal of the fourth and fifth toe of the right foot. She remains on vancomycin and Zosyn. Progress note dated 11/30/2017 The patient is seen again today on the regular surgical floor. She is now status post dictation of the third and fourth toe at the level of the third and fourth metatarsal secondary to wet gangrene of the right foot. She is currently sitting up in a chair at the bedside. Her right foot dressing is dry and intact. She is awake and alert in no acute distress. Cultures of the right foot are pending. Blood culture reveals no growth after 72 hours. White count 15.3. Hemoglobin 9.3. Creatinine 1.43. Temperature 99.1. Maintain O2 saturations in the low 90s on 4 L/m per nasal cannula. She's hemodynamically stable. She remains on Zosyn and vancomycin. He does have some loose nonproductive cough. Progress note dated 12/01/2017 The patient is seen again today on the regular medical floor. She is currently sitting up in a chair at the bedside. She states she is having more trouble breathing today as compared to yesterday. Still short of breath with normal exertion. Dry nonproductive cough. She is maintaining good O2 saturations in the 90s on 2 L/m per nasal cannula. She's been afebrile. Wound culture does show gram-negative bacilli. She is continued on vancomycin and Zosyn. White count 16.2. Hemoglobin 9.9. Creatinine 1.11. She's been maintained on DuoNeb inhalations 4 times a day and when necessary, Pulmicort and Perforomist inhalations twice a day him a she was given a Depo-Medrol injection yesterday and started on a Medrol Dosepak. Objective - Vital Signs Vital signs: Vital Signs Temp 97.6 F 12/01/17 07:00 Pulse 94 12/01/17 09:05 Resp 18 12/01/17 07:00 BP 182/75 12/01/17 07:00 Pulse Ox 93 L 12/01/17 07:00 Intake & Output 11/30/17 12/01/17 12/01/17 18:59 06:59 18:59 Intake Total 1520 1200 Output Total 51 Balance 1520 1149 Weight 111.13 kg 111.13 kg Intake: Intake, IV Titration 800 1200 Amount Sodium Chloride 0.9% 1, 800 1200 000 ml @ 100 mls/hr IV . Q10H [facility] Rx#:[id number] Oral 420 Other 300 Output: Urine 50 Stool 1 Other: Voiding Method Bedside Commode Bedside Commode Bedpan Bedpan Incontinent Incontinent # Voids 4 3 - Exam No acute distress, oriented 3. Nasal O2 in place at 3 L/m. HEENT examination is grossly unremarkable. Mucous membranes are moist. No oral lesions. Neck supple. Full range of motion. No adenopathy thyromegaly or neck vein distention. Cardiovascular examination reveals regular rhythm rate. S1-S2 normal. No S3 or S4. No discernible murmur noted. Heart sounds are distant. Lungs reveal diminished breath sounds throughout. There is some bibasilar crackles. There is some expiratory wheezes and rhonchi. Breath sounds are diminished. There is prolongation on forced maneuver. Abdomen is soft and bowel sounds are heard. No masses or tenderness. Extremities are intact. The right foot is currently wrapped status post amputation of the right third and fourth toe. No cyanosis clubbing or significant edema. Skin is without rash or lesion. Neurologic examination is brief but nonfocal. - Labs CBC & Chem 7: 12/01/17 07:05 12/01/17 07:05 Labs: Abnormal Lab Results - Last 24 Hours (Table) 11/30/17 11/30/17 12/01/17 Range/Units 18:01 20:23 07:05 WBC 16.2 H (3.8-10.6) k/uL RBC 3.35 L (3.80-5.40) m/uL Hgb 9.9 L (11.4-16.0) gm/dL Hct 31.8 L (34.0-46.0) % Neutrophils # 13.7 H (1.3-7.7) k/uL BUN (7-17) mg/dL Creatinine (0.52-1.04) mg/dL Glucose (74-99) mg/dL POC Glucose (mg/dL) 175 H 197 H (75-99) mg/dL Calcium (8.4-10.2) mg/dL 12/01/17 12/01/17 12/01/17 Range/Units 07:05 07:06 12:14 WBC (3.8-10.6) k/uL RBC (3.80-5.40) m/uL Hgb (11.4-16.0) gm/dL Hct (34.0-46.0) % Neutrophils # (1.3-7.7) k/uL BUN 40 H (7-17) mg/dL Creatinine 1.11 H (0.52-1.04) mg/dL Glucose 180 H (74-99) mg/dL POC Glucose (mg/dL) 185 H 244 H (75-99) mg/dL Calcium 8.1 L (8.4-10.2) mg/dL Microbiology - Last 24 Hours (Table) 11/26/17 20:56 Blood Culture - Preliminary Blood No Growth after 96 hours 11/29/17 15:15 Gram Stain - Preliminary Foot - Right Wound Culture - Preliminary Gram Neg Bacilli 11/29/17 15:15 Gram Stain - Preliminary Foot - Right Wound Culture - Preliminary Gram Neg Bacilli 11/28/17 13:50 Anaerobic Culture - Final Foot - Right Assessment and Plan Assessment: Assessment Shortness of breath with desaturation, likely multifactorial, in part related to underlying sleep apnea syndrome, COPD, and mild fluid overload. There also may be a component of obesity/hypoventilation syndrome pickwickian syndrome. History of diabetes mellitus Morbid obesity Cellulitis/osteomyelitis of the right foot, status post amputation of the right third and fourth toe. Postoperative day #1. History of fibromyalgia Hyperlipidemia Hypertension Hypothyroidism History of sleep apnea syndrome Multiple other medical problems and comorbidities Plan: The patient was seen and evaluated by Dr. Huang. We'll continue with Symbicort , DuoNeb inhalations and Mucinex. We will discontinue the Medrol Dosepak and start the patient on IV Solu-Medrol due to her ongoing dyspnea and wheezing. Continue antibiotics. We'll continue to follow and make further recommendations based on her clinical status. I, the cosigning physician, performed a history & physical examination of the patient. Lungs sounds with bilateral end expiratory wheeze, diminished. Maintaining good O2 saturations in the 90s on 3 L/m per nasal cannula. I discussed the assessment and plan of care with my nurse practitioner, Tootie Jara. I attest to the above note as dictated by her.
[2017-12-01] MEDS: methylPREDNISolone SOD SUCCI 125 MG/2 ML VIAL IV SCH ×2 (12:38→17:24)
[2017-12-01] MEDS: HYDROmorphone 1 MG/ML 1 ML SYRINGE IVP PRN ×2 (14:13→23:00)
--- NOTE | 2017-12-01 15:26 | XR ---
EXAMINATION TYPE: XR chest 1V portable DATE OF EXAM: 12/01/2017 Comparison: 11/28/2017 Clinical History: 57-year-old female shortness of breath, dyspnea Findings: The heart is mildly enlarged. Diffuse interstitial densities and interstitial thickening. Focal right lower lung airspace opacity. No sizable pleural effusions seen on the frontal view. Impression: 1. Cardiac megaly and continued interstitial opacities. Correlate for mild pulmonary vascular congest ion. 2. However, more confluent airspace disease is now present in the right lower lung. Pneumonia not exc luded. Correlate with patient's symptoms.
--- NOTE | 2017-12-01 16:32 | PN ---
PROGRESS NOTE DATE OF SERVICE: 12/01/2017. This 57-year-old woman is admitted with diabetic foot, underwent amputation 3rd and 4th toes. Patient also had sepsis and osteomyelitis. The patient had significant respiratory difficulty last night. The patient was given breathing treatments. The chest x-ray is pending at this time. Otherwise Dr. Huang has seen the patient and recommended intensive bronchodilators. Mild fluid overload was also suspected. Patient apparently also received a short course of diuretics also. The patient being closely monitored. PAST MEDICAL HISTORY: Reviewed. REVIEW OF SYSTEMS: CARDIOVASCULAR SYSTEM: As mentioned earlier. RESPIRATORY: As mentioned earlier. GI no nausea or vomiting. no dysuria. Nervous system: No numbness or weakness. CURRENT MEDICATIONS ARE: Reviewed and include: 1. DuoNeb q.i.d. and p.r.n. 2. Norvasc 5 mg daily. 3. Aspirin 320 mg daily. 4. Pulmicort 1 mg b.i.d. 5. Perforomist 20 mg b.i.d. 6. Neurontin 100 mg. 7. Mucinex 600 mg b.i.d. 8. Heparin 5000 subcu q8. 9. Dilaudid 1 mg q.6h p.r.n. 10.NovoLog scale. 11.Levemir 60 units subcu b.i.d. 12.Synthroid 50 mcg b.i.d. 13.Solu-Medrol 60 IV q.6h. 14.Vancomycin. 15.Chantix. PHYSICAL EXAM: Patient is alert, oriented x3. Pulse 94. Blood pressure 182/74, respiration 18, temperature 97.6, pulse ox 93% on room air. HEENT: Conjunctivae normal. Oral mucosa moist. Neck is no jugular venous distention. No carotid bruit. No lymph node enlargement. Cardiovascular: S1, S2. RESPIRATORY: Breath sounds diminished in the bases. Bilateral scattered rhonchi and crackles. Expiratory wheezing also present. Abdomen soft. Legs status post left toe amputation. Nervous system: No focal deficits. LAB STUDIES: WBC 16.2, hemoglobin 9.9, creatinine is 1.1. ASSESSMENT: 1. Diabetic foot, right foot with incision, drainage, and amputation of the third and fourth toes on the right foot. 2. Sepsis with possible osteomyelitis secondary to MSSA present on admission. 3. Chronic obstructive pulmonary disease acute exacerbation with acute purulent tracheobronchitis. 4. Hyponatremia. 5. Mild acute renal failure. 6. Diabetes mellitus type 2. 7. Chronic obstructive pulmonary disease. 8. Hypertension. 9. Hyperlipidemia. 10.Obesity. 11.Depression. 12.Increased AST/ALT. 13.Increased creatinine with chronic kidney disease stage 3. 14.Obesity with body mass index of 43.4. 15.Gait dysfunction. RECOMMENDATIONS AND DISCUSSION: Recommend to continue current medications, management, continue to monitor and symptomatic treatment. Otherwise, at this time, I recommend repeat labs. Continue with steroids. Continue the bronchodilators and intensive bronchodilators as mentioned earlier. Blood sugar will be checked. I would also recommend taper steroids once the patient is better. Otherwise, continue the antibiotics. Also evaluate with Infectious Disease and Social Work for possible ECF rehab also. The overall prognosis guarded because of multiple complex medical issues. Further recommendations to follow. DON / EMILEE: [id number] /
[2017-12-01 16:34] LABS: Glucose,Whole Blood 269 mg/dL (75-99)
[2017-12-01 19:57] LABS: Glucose,Whole Blood 348 mg/dL (75-99)
[2017-12-01] MEDS: FORMOTEROL FUMARATE 20 MCG/2 ML NEBU INHALATION SCH (20:50)
[2017-12-01] MEDS: BUDESONIDE 1 MG/2 ML NEBU INHALATION SCH (20:50)
[2017-12-01] MEDS: SENNOSIDES 8.6 MG TAB PO SCH (20:59)
[2017-12-01] MEDS: GABAPENTIN 100 MG CAP PO SCH (21:00)
[2017-12-01 21:32] LABS: Glucose,Whole Blood 357 mg/dL (75-99)
[2017-12-01] MEDS: VANCOMYCIN 1,750 MG in SODIUM CHLORIDE 0.9% 500 ML 500 ML IVPB SCH (22:58)
[2017-12-02] MEDS: HEPARIN SODIUM,PORCINE 5,000 UNIT/ML 1 ML VIAL SQ SCH ×3 (00:30→15:48)
[2017-12-02] MEDS: PIPERACILLIN-TAZOBACTAM 3.375 GM in DEXTROSE/WATER 1 50ML.BAG IVPB SCH ×3 (00:31→15:48)
[2017-12-02] MEDS: methylPREDNISolone SOD SUCCI 125 MG/2 ML VIAL IV SCH ×3 (00:31→13:24)
[2017-12-02 02:49] LABS: Glucose,Whole Blood 369 mg/dL (75-99)
[2017-12-02] MEDS ORDERED: INSULIN ASPART 100 UNIT/ML 1 ML 10 ML VIAL SQ ONE (04:29)
[2017-12-02] MEDS: LEVOTHYROXINE 50 MCG TAB PO SCH (05:55)
[2017-12-02 07:12] LABS: Glucose,Whole Blood 326 mg/dL (75-99)
[2017-12-02 07:33] LABS: Basophils # (A) 0.1 k/uL (0-0.2); Basophils % (A) 0 %; Eosinophils % (A) 0 %; HCT 31.3 % (34.0-46.0); HGB 9.7 gm/dL (11.4-16.0); Hypochromasia Moderate; Lymphocytes # (A) 0.8 k/uL (1.0-4.8); Lymphocytes % (A) 6 %; MCH 29.4 pg (25.0-35.0); MCHC 30.9 g/dL (31.0-37.0); Mean Platelet Volume 7.6; Monocytes # (A) 0.4 k/uL (0-1.0); Monocytes % (A) 3 %; Neutrophils # (A) 13.6 k/uL (1.3-7.7); Neutrophils % (A) 90 %; Platelet Count 374 k/uL (150-450); RDW 14.5 % (11.5-15.5); WBC 15.1 k/uL (3.8-10.6)
[2017-12-02 07:47] LABS: Calcium 8.4 mg/dL (8.4-10.2); Potassium 5.3 mmol/L (3.5-5.1)
[2017-12-02] MEDS: INSULIN ASPART 100 UNIT/ML 1 ML 10 ML VIAL SQ SCH ×5 (08:22→22:26)
[2017-12-02] MEDS: BUDESONIDE 1 MG/2 ML NEBU INHALATION SCH ×2 (09:13→19:57)
[2017-12-02] MEDS: IPRATROPIUM-ALBUTEROL 3 ML NEB INHALATION SCH ×4 (09:13→19:57)
[2017-12-02] MEDS: FORMOTEROL FUMARATE 20 MCG/2 ML NEBU INHALATION SCH ×2 (09:13→19:57)
[2017-12-02] MEDS: LOSARTAN 50 MG TAB PO SCH (10:08)
[2017-12-02] MEDS: guaiFENesin 600 MG TABLET.ER PO SCH ×2 (10:08→22:27)
[2017-12-02] MEDS: ASPIRIN 325 MG TAB PO SCH (10:08)
[2017-12-02] MEDS: amLODIPine 5 MG TAB PO SCH (10:08)
[2017-12-02] MEDS: INSULIN DETEMIR 100 UNIT/ML 10 ML VIAL SQ SCH ×2 (10:40→22:26)
--- NOTE | 2017-12-02 11:28 | P.PN ---
Subjective Progress Note Date: 12/02/17 Principal diagnosis: Acute hypoxic respiratory failure, multifactorial, COPD exacerbation, fluid volume overload, obesity hypoventilation syndrome Pulmonary consult dated 11/28/2017 This is a 57-year-old female seen in the emergency room on November 26 for an infection and wound on her right foot. Since that time, she was discovered to have cellulitis and also some osteomyelitis of the foot. She didn't see one of the vascular surgeons at the wound clinic for that. Her primary care physician is Dr. Gallardo. We were called in because apparently last night her saturations dipped down below 90%. Oxygen was given to her at 3 L. Were asked to see her as to the etiology of her hypoxemic. Based on our evaluation exam and so forth , we believe is multifactorial in part related to some mild CHF as well as underlying COPD. She apparently knows that she has COPD. She apparently had been given a Symbicort inhaler in the past. She's never seen a lung doctor. She smoked for many years. Recently she stopped smoking with the assistance of Chantix. The patient has never seen a lung doctor in the past. She sees Dr. Gallardo and also Dr. Zhou in vascular surgery. The patient has been a heavy smoker for many years until recently. She has a history of hypertension diabetes obesity fibromyalgia hyperlipidemia DJD sleep apnea syndrome and hypothyroidism. She also likely has underlying COPD but she has not been seen by integrated program teacher has not had pulmonary function testing. Currently feeling much better. However orders to the nurse were to put the patient on Symbicort 160/4.5, 2 puffs twice a day, duo nebs, 4 times a day and when necessary, during the IV fluids down from 80 mL an hour down to KVO, and give the patient Lasix 40 mg IV push. The patient will need outpatient evaluation with one of the integrated program teacher once she is discharged from the hospital. Progress note dated 11/29/2017 The patient is seen again today in the pediatric unit. She is currently awake and alert in no acute distress. She is breathing easier today as compared to yesterday. She is maintaining good O2 saturations in the low 90s on 3 L/m per nasal cannula. She's been afebrile. Hemodynamically stable. Blood cultures reveal no growth to date. Wound culture reveals no growth. White count 16.4. Hemoglobin 9.8. Creatinine 1.43. AST 61, ALT 57. She has been seen by orthopedics and vascular surgery. There is some discussion about possible removal of the fourth and fifth toe of the right foot. She remains on vancomycin and Zosyn. Progress note dated 11/30/2017 The patient is seen again today on the regular surgical floor. She is now status post dictation of the third and fourth toe at the level of the third and fourth metatarsal secondary to wet gangrene of the right foot. She is currently sitting up in a chair at the bedside. Her right foot dressing is dry and intact. She is awake and alert in no acute distress. Cultures of the right foot are pending. Blood culture reveals no growth after 72 hours. White count 15.3. Hemoglobin 9.3. Creatinine 1.43. Temperature 99.1. Maintain O2 saturations in the low 90s on 4 L/m per nasal cannula. She's hemodynamically stable. She remains on Zosyn and vancomycin. He does have some loose nonproductive cough. Progress note dated 12/01/2017 The patient is seen again today on the regular medical floor. She is currently sitting up in a chair at the bedside. She states she is having more trouble breathing today as compared to yesterday. Still short of breath with normal exertion. Dry nonproductive cough. She is maintaining good O2 saturations in the 90s on 2 L/m per nasal cannula. She's been afebrile. Wound culture does show gram-negative bacilli. She is continued on vancomycin and Zosyn. White count 16.2. Hemoglobin 9.9. Creatinine 1.11. She's been maintained on DuoNeb inhalations 4 times a day and when necessary, Pulmicort and Perforomist inhalations twice a day him a she was given a Depo-Medrol injection yesterday and started on a Medrol Dosepak. On 12/02/2017 patient seen in follow-up. Sitting up in chair, breathing better , feeling better. Yesterday's chest x-ray was reviewed, and showed cardiomegaly , and interstitial opacities, and mild pulmonary vascular congestion and airspace disease in the right lower lung, infiltrate/atelectasis. Patient was given a dose of IV Lasix. She remains on antibiotics, currently on vancomycin and Zosyn. Right foot wound cultures were positive for Morganella morganii, Serratia marcescens, and result of staph aureus. Afebrile, denies any chills, currently on 4 L per nasal cannula pulse ox is 95%. She states she is less short of breath on today's exam, lung sounds reveal coarse rales at the right lower lobe, diminished breath sounds overall. Patient remains on maintenance bronchodilators, Pulmicort and Perforomist, added IV steroids yesterday, and the above-mentioned antibiotics. Objective - Vital Signs Vital signs: Vital Signs Temp 97.5 F L 12/02/17 09:22 Pulse 92 12/02/17 09:53 Resp 16 12/02/17 09:22 BP 186/70 12/02/17 09:22 Pulse Ox 95 12/02/17 09:22 Intake & Output 12/01/17 12/02/17 12/02/17 18:59 06:59 18:59 Intake Total 1110 Balance 1110 Intake: Intake, IV Titration 710 Amount Piperacillin-Tazobactam 3 50 .375 gm In Dextrose/Water 1 50ml.bag @ 12.5 mls/hr IVPB Q8H [facility] Rx#: [id number] Sodium Chloride 0.9% 1, 160 000 ml @ 20 mls/hr IV . Q24H [facility] Rx#:[id number] Vancomycin 1,750 mg In 500 Sodium Chloride 0.9% 500 ml 500 ml @ 167 mls/hr IVPB Q24H [facility] Rx#: [id number] Oral 400 Other: Voiding Method Bedside Commode Bedpan Incontinent # Voids 1 3 - Exam No acute distress, oriented 3. Nasal O2 in place at 3 L/m. HEENT examination is grossly unremarkable. Mucous membranes are moist. No oral lesions. Neck supple. Full range of motion. No adenopathy thyromegaly or neck vein distention. Cardiovascular examination reveals regular rhythm rate. S1-S2 normal. No S3 or S4. No discernible murmur noted. Heart sounds are distant. Lungs reveal diminished breath sounds throughout. There is some crackles in the right posterior lower lobe. No rhonchi or wheezes. Breath sounds are diminished. There is prolongation on forced maneuver. Abdomen is soft and bowel sounds are heard. No masses or tenderness. Extremities are intact. The right foot is currently wrapped status post amputation of the right third and fourth toe. No cyanosis clubbing or significant edema. Skin is without rash or lesion. Neurologic examination is brief but nonfocal. - Labs CBC & Chem 7: 12/02/17 07:14 12/02/17 07:14 Labs: Abnormal Lab Results - Last 24 Hours (Table) 12/01/17 12/01/17 12/01/17 Range/Units 12:14 16:33 19:55 WBC (3.8-10.6) k/uL RBC (3.80-5.40) m/uL Hgb (11.4-16.0) gm/dL Hct (34.0-46.0) % MCHC (31.0-37.0) g/dL Neutrophils # (1.3-7.7) k/uL Lymphocytes # (1.0-4.8) k/uL Sodium (137-145) mmol/L Potassium (3.5-5.1) mmol/L BUN (7-17) mg/dL Creatinine (0.52-1.04) mg/dL Glucose (74-99) mg/dL POC Glucose (mg/dL) 244 H 269 H 348 H (75-99) mg/dL 12/01/17 12/02/17 12/02/17 Range/Units 21:30 02:46 07:11 WBC (3.8-10.6) k/uL RBC (3.80-5.40) m/uL Hgb (11.4-16.0) gm/dL Hct (34.0-46.0) % MCHC (31.0-37.0) g/dL Neutrophils # (1.3-7.7) k/uL Lymphocytes # (1.0-4.8) k/uL Sodium (137-145) mmol/L Potassium (3.5-5.1) mmol/L BUN (7-17) mg/dL Creatinine (0.52-1.04) mg/dL Glucose (74-99) mg/dL POC Glucose (mg/dL) 357 H 369 H 326 H (75-99) mg/dL 12/02/17 12/02/17 Range/Units 07:14 07:14 WBC 15.1 H (3.8-10.6) k/uL RBC 3.30 L (3.80-5.40) m/uL Hgb 9.7 L (11.4-16.0) gm/dL Hct 31.3 L (34.0-46.0) % MCHC 30.9 L (31.0-37.0) g/dL Neutrophils # 13.6 H (1.3-7.7) k/uL Lymphocytes # 0.8 L (1.0-4.8) k/uL Sodium 135 L (137-145) mmol/L Potassium 5.3 H (3.5-5.1) mmol/L BUN 40 H (7-17) mg/dL Creatinine 1.06 H (0.52-1.04) mg/dL Glucose 288 H (74-99) mg/dL POC Glucose (mg/dL) (75-99) mg/dL Microbiology - Last 24 Hours (Table) 11/29/17 15:15 Anaerobic Culture - Preliminary Foot - Right 11/29/17 15:15 Anaerobic Culture - Preliminary Foot - Right 11/26/17 20:56 Blood Culture - Preliminary Blood No Growth after 120 hours 11/29/17 15:15 Gram Stain - Preliminary Foot - Right Wound Culture - Preliminary Morganella morganii Serratia marcescens Presumptive Staph aureus 11/29/17 15:15 Gram Stain - Preliminary Foot - Right Wound Culture - Preliminary Morganella morganii Serratia marcescens Presumptive Staph aureus Assessment and Plan Plan: Shortness of breath with desaturation, likely multifactorial, in part related to underlying sleep apnea syndrome, COPD, and mild fluid overload. There also may be a component of obesity/hypoventilation syndrome pickwickian syndrome. History of diabetes mellitus Morbid obesity Cellulitis/osteomyelitis of the right foot, status post amputation of the right third and fourth toe. Postoperative day #2. Wound cultures were positive for Morganella morganii, serratia marcescens, and presumptive staph aureus, patient is covered with combination of Zosyn and vancomycin. History of fibromyalgia Hyperlipidemia Hypertension Hypothyroidism History of sleep apnea syndrome Multiple other medical problems and comorbidities Plan: Continue current medical treatment, IV steroids, antibiotics, nebulized bronchodilators. Continue encouraging incentive spirometry use, deep breathing and coughing. Patient is less short of breath, no fever or chills, no worsening dyspnea or chest pain. We'll continue to follow I performed a history & physical examination of the patient and discussed their management with my nurse practitioner, Chiquita Bray. I reviewed the nurse practitioner's note and agree with the documented findings and plan of care. Lung sounds are positive for right lower lobe crackles. The findings and the impression was discussed with the patient. I attest to the documentation by the nurse practitioner. Time with Patient: Less than 30
[2017-12-02] MEDS: VARENICLINE 0.5 MG TAB PO SCH ×2 (11:36→22:27)
[2017-12-02 11:44] LABS: Glucose,Whole Blood 351 mg/dL (75-99)
[2017-12-02 17:04] LABS: Glucose,Whole Blood 425 mg/dL (75-99)
[2017-12-02] MEDS ORDERED: methylPREDNISolone SOD SUCCI 40 MG/ML 1 ML VIAL IV SCH (18:00)
[2017-12-02 20:20] LABS: Glucose,Whole Blood 428 mg/dL (75-99)
[2017-12-02] MEDS ORDERED: VANCOMYCIN TROUGH DUE 1 EACH MISC MISCELLANE ONE (21:00)
--- NOTE | 2017-12-02 21:06 | PN ---
PROGRESS NOTE DATE OF SERVICE: 12/02/2017 This 57-year-old woman who was admitted with diabetic foot also had sepsis with osteomyelitis also. The patient had surgery. Patient also has COPD also. Patient improved significantly. No chest pain. No palpitations. No fever. EXAM: Alert and oriented x3. Pulse 90, blood pressure 148/72, respiration 24, temperature 98.2, pulse ox 98% on 3 L. HEENT: Conjunctivae normal. Oral mucosa moist. Neck is no jugular venous distention. No carotid bruit. No lymph node enlargement. CARDIOVASCULAR: S1, S2. RESPIRATORY: Breath sounds diminished in the bases. Bilateral scattered rhonchi and crackles. ABDOMEN: Soft, obese, nontender. LEGS: Status post surgery. NERVOUS SYSTEM: No focal deficits. LABS: WBC 15.1, hemoglobin 9.7, sodium 135, potassium 5.3, glucose noted. ASSESSMENT: 1. Diabetic right foot with incision and drainage, amputation of the 3rd and 4th toes of the right foot. 2. Sepsis with possible osteomyelitis secondary amputation present on admission. 3. Chronic obstructive pulmonary disease acute exacerbation with acute purulent tracheobronchitis. 4. Hyponatremia. 5. Acute renal failure. 6. Diabetes mellitus type 2. 7. History of chronic obstructive pulmonary disease. 8. Hypertension. 9. Hyperlipidemia. 10.Obesity. 11.History of depression. 12.Increased AST, ALT. 13.Increased creatinine with chronic kidney disease stage 3. 14.Obesity with body mass index 43.4. 15.Gait dysfunction. RECOMMENDATIONS AND DISCUSSION: I recommend to continue the current medications and symptomatic treatment. Continue to monitor blood sugars closely. Continue to monitor. We will increase the dose of insulin today and continue to monitor. Guarded prognosis. Further recommendations to follow. Will adjust the steroids also. MMODL / IJN: [id number] /
[2017-12-02] MEDS: CEFEPIME 2 GM in SODIUM CHLORIDE 0.9% 50 ML IVPB SCH (22:25)
[2017-12-02] MEDS: SENNOSIDES 8.6 MG TAB PO SCH (22:26)
[2017-12-02] MEDS: GABAPENTIN 100 MG CAP PO SCH (22:27)
--- NOTE | 2017-12-02 23:39 | PN ---
PROGRESS NOTE DATE OF SERVICE: 12/02/2017. REASON FOR FOLLOWUP: Right diabetic foot infection, polymicrobial. INTERVAL HISTORY: The patient did have a low-grade fever of 100.1 last night. The patient has been afebrile since then. She has been breathing comfortably. The patient denies having any chest pain, shortness of breath, cough. No abdominal pain or any worsening pain to the right foot area. EXAMINATION: Blood pressure 121/71 with a pulse of 78, temperature 98.3, she is 96% on 3 L nasal cannula. GENERAL DESCRIPTION: A middle-aged female, lying in bed in no distress. RESPIRATORY SYSTEM: Unlabored breathing. Clear to auscultation anteriorly. HEART: S1, S2. Regular rate and rhythm. ABDOMEN: Soft, no tenderness. EXTREMITIES: Right foot is currently dressed up, no obvious drainage on the dressing. LABS: White count is 13,000. Blood culture has been negative. The wound culture is currently showing Morganella, serratia marcescens and Staph aureus. DIAGNOSTIC IMPRESSION AND PLAN: Patient with a right diabetic foot infection. The patient with multiple pathogens growing Serratia marcescens, Morganella and MSSA. Antibiotic at this time will be adjusted to cefepime 2 g every 12 hours. Will discontinue vancomycin and Zosyn. The patient will need a PICC line for outpatient IV antibiotic therapy. Continue with supportive care. Local wound care per the vascular surgeon. Continue supportive care. MMODL / ESTEEN: [id number] /
[2017-12-03] MEDS: HYDROmorphone 1 MG/ML 1 ML SYRINGE IVP PRN ×2 (00:35→08:43)
[2017-12-03] MEDS: HEPARIN SODIUM,PORCINE 5,000 UNIT/ML 1 ML VIAL SQ SCH ×3 (00:36→16:57)
[2017-12-03] MEDS: VANCOMYCIN 1,750 MG in SODIUM CHLORIDE 0.9% 500 ML 500 ML IVPB SCH (04:44)
[2017-12-03] MEDS: SODIUM CHLORIDE 0.9% 1,000 ML IV SCH (07:03)
[2017-12-03 07:16] LABS: Glucose,Whole Blood 220 mg/dL (75-99)
[2017-12-03] MEDS: FORMOTEROL FUMARATE 20 MCG/2 ML NEBU INHALATION SCH (07:18)
[2017-12-03] MEDS: BUDESONIDE 1 MG/2 ML NEBU INHALATION SCH (07:18)
[2017-12-03] MEDS: IPRATROPIUM-ALBUTEROL 3 ML NEB INHALATION SCH ×3 (07:18→16:03)
[2017-12-03] MEDS: ASPIRIN 325 MG TAB PO SCH (08:27)
[2017-12-03] MEDS: guaiFENesin 600 MG TABLET.ER PO SCH (08:28)
[2017-12-03] MEDS: CEFEPIME 2 GM in SODIUM CHLORIDE 0.9% 50 ML IVPB SCH (08:28)
[2017-12-03] MEDS: LEVOTHYROXINE 50 MCG TAB PO SCH (08:28)
[2017-12-03] MEDS: LOSARTAN 50 MG TAB PO SCH (08:28)
[2017-12-03] MEDS: amLODIPine 5 MG TAB PO SCH (08:28)
[2017-12-03] MEDS: VARENICLINE 0.5 MG TAB PO SCH (08:36)
[2017-12-03] MEDS: INSULIN ASPART 100 UNIT/ML 1 ML 10 ML VIAL SQ SCH ×6 (08:38→16:58)
[2017-12-03] MEDS: INSULIN DETEMIR 100 UNIT/ML 10 ML VIAL SQ SCH (08:40)
[2017-12-03] MEDS ORDERED: predniSONE 20 MG TAB PO SCH (09:00)
[2017-12-03 09:30] LABS: Basophils # (A) 0.1 k/uL (0-0.2); Basophils % (A) 0 %; Eosinophils % (A) 0 %; HCT 33.7 % (34.0-46.0); HGB 10.5 gm/dL (11.4-16.0); Hypochromasia Moderate; Lymphocytes % (A) 10 %; MCH 29.6 pg (25.0-35.0); MCHC 31.1 g/dL (31.0-37.0); MCV 95.1 fL (80.0-100.0); Mean Platelet Volume 7.3; Monocytes # (A) 0.7 k/uL (0-1.0); Monocytes % (A) 4 %; Neutrophils # (A) 16.8 k/uL (1.3-7.7); Neutrophils % (A) 85 %; Platelet Count 439 k/uL (150-450); RBC 3.54 m/uL (3.80-5.40); RDW 14.5 % (11.5-15.5); WBC 19.8 k/uL (3.8-10.6)
[2017-12-03] MEDS ORDERED: IV FLUID CONTINUATION 1,000 ML IV ONE (09:34)
[2017-12-03] MEDS ORDERED: LIDOCAINE 1% INJ 10MG/ML (20 ML MDV) SQ ONE (09:44)
[2017-12-03 09:55] LABS: Potassium 4.9 mmol/L (3.5-5.1)
--- NOTE | 2017-12-03 10:26 | IR ---
PICC LINE PLACEMENT: HISTORY: Infection requiring long-term antibiotic therapy PROCEDURE: Ultrasound and fluoroscopic guidance of PICC line placement. COMPLICATIONS: None ANESTHESIA: 1. 1% Lidocaine locally. FINDINGS/TECHNIQUE: The procedure was explained to the patient. The risks, complications, benefits and alternatives were discussed and any questions were answered. Informed consent was obtained. The patient was placed supine on the fluoroscopic table and prepped and draped in the usual sterile fash ion. Utilizing a 21 gauge needle and sonographic and fluoroscopic guidance, access in the left ceph alic vein was achieved and there is placement of a 0.018 guidewire. The vein is patent. A 4-F sheat h was placed over the guidewire. The guidewire and dilator were removed and a 4-F. PICC line was aaron john through the sheath with the tip at the level of the SVC. The sheath was removed, the catheter wa s flushed and sutured into position. The patient was stable throughout the procedure and remained st able upon discharge from the Department of Radiology. The vein puncture was patent under ultrasound. A jorgensen scale image was obtained to document patency of the vein punctured. All elements of the maximal barrier technique were utilized. FLUOROSCOPY TIME: 0.1 minute, one image submitted IMPRESSION: Successful PICC line placement under ultrasound and fluoroscopic guidance.
[2017-12-03 11:26] LABS: Glucose,Whole Blood 209 mg/dL (75-99)
--- NOTE | 2017-12-03 12:25 | PN ---
PROGRESS NOTE This is a 57-year-old diabetic female with history of wet gangrene of the right foot third and fourth toe. Patient went for ray amputation. We will continue with IV antibiotic and local wound care. The patient is going home today on VAC therapy. I will follow in the wound clinic on Sunday. Continue with IV antibiotic. MMODL / IJN: [id number] /
[2017-12-03 16:36] LABS: Glucose,Whole Blood 248 mg/dL (75-99)
--- NOTE | 2017-12-03 17:19 | P.PN ---
Subjective Progress Note Date: 12/03/17 Principal diagnosis: Acute hypoxic respiratory failure, multifactorial, COPD exacerbation, fluid volume overload, obesity hypoventilation syndrome Pulmonary consult dated 11/28/2017 This is a 57-year-old female seen in the emergency room on November 26 for an infection and wound on her right foot. Since that time, she was discovered to have cellulitis and also some osteomyelitis of the foot. She didn't see one of the vascular surgeons at the wound clinic for that. Her primary care physician is Dr. Gallardo. We were called in because apparently last night her saturations dipped down below 90%. Oxygen was given to her at 3 L. Were asked to see her as to the etiology of her hypoxemic. Based on our evaluation exam and so forth , we believe is multifactorial in part related to some mild CHF as well as underlying COPD. She apparently knows that she has COPD. She apparently had been given a Symbicort inhaler in the past. She's never seen a lung doctor. She smoked for many years. Recently she stopped smoking with the assistance of Chantix. The patient has never seen a lung doctor in the past. She sees Dr. Gallardo and also Dr. Zhou in vascular surgery. The patient has been a heavy smoker for many years until recently. She has a history of hypertension diabetes obesity fibromyalgia hyperlipidemia DJD sleep apnea syndrome and hypothyroidism. She also likely has underlying COPD but she has not been seen by asphalt roller operator has not had pulmonary function testing. Currently feeling much better. However orders to the nurse were to put the patient on Symbicort 160/4.5, 2 puffs twice a day, duo nebs, 4 times a day and when necessary, during the IV fluids down from 80 mL an hour down to KVO, and give the patient Lasix 40 mg IV push. The patient will need outpatient evaluation with one of the asphalt roller operator once she is discharged from the hospital. Progress note dated 11/29/2017 The patient is seen again today in the pediatric unit. She is currently awake and alert in no acute distress. She is breathing easier today as compared to yesterday. She is maintaining good O2 saturations in the low 90s on 3 L/m per nasal cannula. She's been afebrile. Hemodynamically stable. Blood cultures reveal no growth to date. Wound culture reveals no growth. White count 16.4. Hemoglobin 9.8. Creatinine 1.43. AST 61, ALT 57. She has been seen by orthopedics and vascular surgery. There is some discussion about possible removal of the fourth and fifth toe of the right foot. She remains on vancomycin and Zosyn. Progress note dated 11/30/2017 The patient is seen again today on the regular surgical floor. She is now status post dictation of the third and fourth toe at the level of the third and fourth metatarsal secondary to wet gangrene of the right foot. She is currently sitting up in a chair at the bedside. Her right foot dressing is dry and intact. She is awake and alert in no acute distress. Cultures of the right foot are pending. Blood culture reveals no growth after 72 hours. White count 15.3. Hemoglobin 9.3. Creatinine 1.43. Temperature 99.1. Maintain O2 saturations in the low 90s on 4 L/m per nasal cannula. She's hemodynamically stable. She remains on Zosyn and vancomycin. He does have some loose nonproductive cough. Progress note dated 12/01/2017 The patient is seen again today on the regular medical floor. She is currently sitting up in a chair at the bedside. She states she is having more trouble breathing today as compared to yesterday. Still short of breath with normal exertion. Dry nonproductive cough. She is maintaining good O2 saturations in the 90s on 2 L/m per nasal cannula. She's been afebrile. Wound culture does show gram-negative bacilli. She is continued on vancomycin and Zosyn. White count 16.2. Hemoglobin 9.9. Creatinine 1.11. She's been maintained on DuoNeb inhalations 4 times a day and when necessary, Pulmicort and Perforomist inhalations twice a day him a she was given a Depo-Medrol injection yesterday and started on a Medrol Dosepak. On 12/02/2017 patient seen in follow-up. Sitting up in chair, breathing better , feeling better. Yesterday's chest x-ray was reviewed, and showed cardiomegaly , and interstitial opacities, and mild pulmonary vascular congestion and airspace disease in the right lower lung, infiltrate/atelectasis. Patient was given a dose of IV Lasix. She remains on antibiotics, currently on vancomycin and Zosyn. Right foot wound cultures were positive for Morganella morganii, Serratia marcescens, and result of staph aureus. Afebrile, denies any chills, currently on 4 L per nasal cannula pulse ox is 95%. She states she is less short of breath on today's exam, lung sounds reveal coarse rales at the right lower lobe, diminished breath sounds overall. Patient remains on maintenance bronchodilators, Pulmicort and Perforomist, added IV steroids yesterday, and the above-mentioned antibiotics. On 12/03/2017 patient seen in follow-up. She is sitting up in the chair, in no acute distress, room air pulse ox is 100%, she is afebrile. Denies any worsening shortness of breath or chest pain. Lung sounds are positive for some bibasilar crackles, but no rhonchi or wheezing noted on today's exam. Today's lab work has been reviewed, the VDC is 19.8, hemoglobin is 10.5, sodium is 136, the risks electrolytes are within normal limits, creatinine is 1.05, BUN is 39. Patient continues on antibiotic coverage in the form of cefepime, and vancomycin, for evidence of Morganella morganii, Serratia marcescens, and staph aureus in the right foot wound cultures. No significant chest congestion or sputum production. No hemoptysis. Patient had a PICC line inserted for infusion of IV antibiotics after discharge, patient is going home today on wound VAC therapy. Objective - Vital Signs Vital signs: Vital Signs Temp 98.1 F 12/03/17 14:40 Pulse 85 12/03/17 16:14 Resp 16 12/03/17 14:40 BP 193/83 12/03/17 14:40 Pulse Ox 100 12/03/17 14:40 Intake & Output 12/02/17 12/03/17 12/03/17 18:59 06:59 18:59 Intake Total 210 1520 598 Balance 210 1520 598 Intake: Intake, IV Titration 210 470 Amount Cefepime 2 gm In Sodium 100 Chloride 0.9% 50 ml @ 100 mls/hr IVPB Q12HR [facility] Rx #:[id number] Piperacillin-Tazobactam 3 50 50 .375 gm In Dextrose/Water 1 50ml.bag @ 12.5 mls/hr IVPB Q8H [facility] Rx#: [id number] Sodium Chloride 0.9% 1, 160 320 000 ml @ 20 mls/hr IV . Q24H [facility] Rx#:[id number] Oral 1050 598 Other: Voiding Method Bedside Commode Bedside Commode Bedpan Incontinent Incontinent # Voids 3 - Exam No acute distress, oriented 3. Nasal O2 in place at 3 L/m. HEENT examination is grossly unremarkable. Mucous membranes are moist. No oral lesions. Neck supple. Full range of motion. No adenopathy thyromegaly or neck vein distention. Cardiovascular examination reveals regular rhythm rate. S1-S2 normal. No S3 or S4. No discernible murmur noted. Heart sounds are distant. Lungs reveal diminished breath sounds throughout. There is some crackles in the right posterior lower lobe. No rhonchi or wheezes. Breath sounds are diminished. There is prolongation on forced maneuver. Abdomen is soft and bowel sounds are heard. No masses or tenderness. Extremities are intact. The right foot is currently wrapped status post amputation of the right third and fourth toe. No cyanosis clubbing or significant edema. Skin is without rash or lesion. Neurologic examination is brief but nonfocal. - Labs CBC & Chem 7: 12/03/17 08:27 12/03/17 08:27 Labs: Abnormal Lab Results - Last 24 Hours (Table) 12/02/17 12/03/17 12/03/17 Range/Units 20:09 06:59 08:27 WBC 19.8 H (3.8-10.6) k/uL RBC 3.54 L (3.80-5.40) m/uL Hgb 10.5 L (11.4-16.0) gm/dL Hct 33.7 L (34.0-46.0) % Neutrophils # 16.8 H (1.3-7.7) k/uL Sodium (137-145) mmol/L BUN (7-17) mg/dL Creatinine (0.52-1.04) mg/dL Glucose (74-99) mg/dL POC Glucose (mg/dL) 428 H 220 H (75-99) mg/dL 12/03/17 12/03/17 12/03/17 Range/Units 08:27 11:09 16:30 WBC (3.8-10.6) k/uL RBC (3.80-5.40) m/uL Hgb (11.4-16.0) gm/dL Hct (34.0-46.0) % Neutrophils # (1.3-7.7) k/uL Sodium 136 L (137-145) mmol/L BUN 39 H (7-17) mg/dL Creatinine 1.05 H (0.52-1.04) mg/dL Glucose 207 H (74-99) mg/dL POC Glucose (mg/dL) 209 H 248 H (75-99) mg/dL Microbiology - Last 24 Hours (Table) 11/26/17 20:56 Blood Culture - Final Blood No Growth after 144 hours 11/29/17 15:15 Gram Stain - Final Foot - Right Wound Culture - Final Morganella morganii Serratia marcescens Staph aureus 11/29/17 15:15 Gram Stain - Final Foot - Right Wound Culture - Final Morganella morganii Serratia marcescens Staphylococcus aureus Assessment and Plan Plan: Shortness of breath with desaturation, likely multifactorial, in part related to underlying sleep apnea syndrome, COPD, and mild fluid overload. There also may be a component of obesity/hypoventilation syndrome pickwickian syndrome. History of diabetes mellitus Morbid obesity Cellulitis/osteomyelitis of the right foot, status post amputation of the right third and fourth toe. Postoperative day #2. Wound cultures were positive for Morganella morganii, serratia marcescens, and presumptive staph aureus, patient is covered with combination of Zosyn and vancomycin. History of fibromyalgia Hyperlipidemia Hypertension Hypothyroidism History of sleep apnea syndrome Multiple other medical problems and comorbidities Plan: No worsening shortness of breath, no chest pain, no hypoxemia, patient is not requiring any supplemental oxygen, vital signs are stable. Patient had a PICC line inserted for infusion of IV antibiotics after discharge, afebrile. On home with the wound VAC on the right foot. Patient will continue on course of prednisone taper, nebulized bronchodilators post discharge. We will follow up with Dr. Dr. Huang in the office in one week. Stable for discharge from pulmonary perspective. I performed a history & physical examination of the patient and discussed their management with my nurse practitioner, Chiquita Bray. I reviewed the nurse practitioner's note and agree with the documented findings and plan of care. Lung sounds are positive for right lower lobe crackles. The findings and the impression was discussed with the patient. I attest to the documentation by the nurse practitioner. Time with Patient: Less than 30
[2017-12-03 19:38] VITALS: BP 179/80; PULSE 94; RESP 17; TEMP 98.9
--- NOTE | 2017-12-04 00:19 | PN ---
PROGRESS NOTE DATE OF SERVICE: 12/03/2017. REASON FOR FOLLOWUP: Right diabetic foot infection with possible osteomyelitis. INTERVAL HISTORY: The patient was seen on rounds earlier this afternoon. The patient has been afebrile. The patient denies having any chest pain or shortness of breath or cough. No significant abdominal pain or any diarrhea. The patient was insisting on going home. EXAMINATION: Her blood pressure is 159/80 with a pulse of 94, temperature of 98.9. She is 95% on room air. General description is a middle-aged female lying in bed in no distress. Respiratory system: Unlabored breathing, clear to auscultation anteriorly. Heart S1, S2. Regular rate and rhythm. Abdomen soft, no tenderness. Right foot is currently dressed up. No obvious drainage on the dressing. LABS: Hemoglobin 10.1, white count slightly up at 19.8. BUN of 39, creatinine 1.05. Wound culture has been Morganella serratia and Staph aureus which is MSSA and aerobic cultures currently pending. DIAGNOSTIC IMPRESSION AND PLAN: Patient with right diabetic foot infection diagnosed with urinary tract infection with polymicrobial both gram-positive and gram-negative. The patient has slight jump in white count. Flagyl will be added to her antibiotic allergy, to make sure the white count improves before the patient is discharged home on IV cefepime and oral Flagyl. A prescription was provided to the case management social worker. Continue supportive care. MMODL / IJN: [id number] /
[2017-12-04] MEDS ORDERED: CEFEPIME 2 GM in SODIUM CHLORIDE 0.9% 50 ML IVPB SCH (09:00)
--- NOTE | 2017-12-04 10:30 | DS ---
DISCHARGE SUMMARY DATE OF SERVICE: 12/03/2017 FINAL DIAGNOSES: 1. Diabetic right foot incision and drainage, amputation of third and fourth toes on the right foot. 2. Sepsis, possible osteomyelitis and secondary amputation, present on admission. 3. Chronic obstructive pulmonary disease acute exacerbation with acute purulent tracheobronchitis. 4. Hyponatremia. 5. Acute renal failure. 6. Diabetes mellitus type 2. 7. History of chronic obstructive pulmonary disease. 8. Hypertension. 9. Hyperlipidemia. 10.Obesity. 11.History of depression. 12.Increased AST, ALT. 13.Increased creatinine with chronic kidney disease stage 3. 14.Obesity with body mass index of 43.4. 15.Gait dysfunction. DISCHARGE DISPOSITION: The patient will be discharged in stable condition with guarded prognosis. Total time taken 35 minutes. HISTORY OF PRESENT ILLNESS: This 57-year-old woman with past medical history of multiple medical problems admitted with diabetic foot and as well as ulcerations. Patient underwent amputation by Dr. Zhou. Patient also has COPD seen in conjunction with Dr. Huang. The patient improved significantly. See multiple consultations and progress notes for further information. IV antibiotics initiated. A PICC line was inserted. Recommended PICC line care and IV antibiotics per Infectious Disease. On exam, vitals are stable. CARDIOVASCULAR: S1 and S2 muffled. RESPIRATORY: A few scattered rhonchi. Abdomen is soft. NERVOUS SYSTEM: No focal deficits. DISCHARGE ADVICE: 1. Diet is cardiac diet. 2. Activity limited until followup. 3. Follow up with Dr. Gallardo in 2 to 3 days. 4. Follow up with Dr. Huang as advised. The medications are: 1. Ventolin 1 to 2 puffs q.6 p.r.n. 2. Norvasc 5 mg p.o. daily. 3. Neurontin 100 mg q.h.s. 4. NovoLog FlexPen 15 units subcutaneous t.i.d. 5. Levemir 60 units subcutaneous b.i.d. 6. Levoxyl 50 mcg p.o. daily. 7. Tradjenta 5 mg p.o. daily. 8. Cozaar 100 mg p.o. daily. 9. Chantix 0.5 mg daily. 10.Aspirin 325 mg daily. 11.Symbicort 160/4.5 two puffs b.i.d. 12.Plavix 75 mg p.o. daily. 13.Mucinex 1200 mg p.o. . 14.DuoNeb q.i.d. and p.r.n. 15.Prednisone taper 40 mg daily for 3 days, 30 for 3 day, 20 for 3 days, 10 for 3 days, and then discontinue. 16.Senokot-S 8.6 mg q.h.s. Follow up with Dr. Zhou and Dr. Scruggs as advised. Once again, the patient will be discharged in stable condition with guarded prognosis. MMODL / IJN: [id number] / MTDD
--- NOTE | 2017-12-04 12:21 | DS ---
DISCHARGE SUMMARY DATE OF SERVICE: 12/03/2017 FINAL DIAGNOSES: 1. Diabetic right foot with incision and drainage with amputation of the third and fourth toes of the right foot. 2. Sepsis secondary to possible osteomyelitis secondary to amputation present on admission. 3. Chronic obstructive pulmonary disease acute exacerbation with acute purulent tracheobronchitis. 4. Hyponatremia. 5. Acute renal failure. 6. Diabetes mellitus type 2. 7. History of chronic obstructive pulmonary disease. 8. Hypertension. 9. Hyperlipidemia. 10.Obesity. 11.History of depression. 12.Increased AST, ALT. 13.Increased creatinine with chronic kidney stage III. 14.Obesity, body mass index of 43.1. 15.Gait dysfunction. DISCHARGE DISPOSITION: The patient will be discharged in the stable condition with guarded prognosis: Total time taken 35 minutes. HISTORY OF PRESENT ILLNESS: This is a 57-year-old woman with a past medical history of multiple medical problems, was admitted with diabetic foot and as well as osteomyelitis. Patient underwent amputation of the third and fourth toe by Dr. Zhou. The patient did IV antibiotics. Infectious Disease saw the patient, a PICC line was inserted. The patient improved significantly. See multiple orders for further information. On exam, vitals are stable. CARDIOVASCULAR: S1, S2. ABDOMEN: Soft. NERVOUS SYSTEM: No focal deficits. DISCHARGE MEDICATION: Diet is cardiac. Activity limited until followup. Follow up with Dr. Gallardo in 2-3 days. Follow up with multiple consultants as recommended. MEDICATIONS: 1. Albuterol 1-2 puffs q.6h p.r.n. 2. Norvasc 5 mg p.o. daily. 3. Neurontin 100 mg q.h.s. 4. NovoLog FlexPen 15 units a.c. t.i.d. 5. Insulin 60 units subcu b.i.d. 6. Levaquin 50 mg p.o. daily. 7. Tradjenta 5 mg p.o. 8. Cozaar 100 mg p.o. daily. 9. Chantix 0.5 mg p.r.n. 10.Aspirin 320 mg daily. 11.Symbicort 4.5 two puffs b.i.d. 12.Plavix 75 mg. 13.Mucinex 200 mg p.o. q.i.d. 14.DuoNeb q.i.d. p.r.n. 15.Flagyl 500 mg t.i.d. 16.Prednisone taper 40 mg daily for 3 days, 30 mg for 3 days, 20 for 3 days, 10 for 3 days. Once again, the patient will be discharged in a stable condition with guarded prognosis. MMCARLOS / IJYakov: [id number] / MTDD
== END 2017-12-03 19:26 | disposition home health service (06) | DRG 853 ==
LOC: EC 19:06 → 6PED 23:26 → 4SSUR 11-29 14:58
PROVIDERS: ADMIT Internal Medicine; ATTEND Internal Medicine
PROC: 0Y6V0Z0 Detachment at Right 4th Toe, Complete, Open Approach (ICD-10-PCS; 2017-11-29)
PROC: 0Y6T0Z0 Detachment at Right 3rd Toe, Complete, Open Approach (ICD-10-PCS; principal; 2017-11-29 09:20)
PROC: 02HV33Z Insertion of Infusion Device into Superior Vena Cava, Percutaneous Approach (ICD-10-PCS; 2017-12-03 09:33)
DX: A41.01 Sepsis due to Methicillin susceptible Staphylococcus aureus (principal); J96.01 Acute respiratory failure with hypoxia; N17.9 Acute kidney failure, unspecified; I13.0 Hypertensive heart and chronic kidney disease with heart failure and stage 1 through stage 4 chronic kidney disease, or unspecified chronic kidney disease; E11.52 Type 2 diabetes mellitus with diabetic peripheral angiopathy with gangrene; M86.171 Other acute osteomyelitis, right ankle and foot; L03.115 Cellulitis of right lower limb; E87.1 Hypo-osmolality and hyponatremia; E66.2 Morbid (severe) obesity with alveolar hypoventilation; Z68.41 Body mass index [BMI] 40.0-44.9, adult; J44.1 Chronic obstructive pulmonary disease with (acute) exacerbation; J98.11 Atelectasis; N39.0 Urinary tract infection, site not specified; N18.3 Chronic kidney disease, stage 3 (moderate); E11.69 Type 2 diabetes mellitus with other specified complication; E11.22 Type 2 diabetes mellitus with diabetic chronic kidney disease; E11.40 Type 2 diabetes mellitus with diabetic neuropathy, unspecified; E11.621 Type 2 diabetes mellitus with foot ulcer; I50.9 Heart failure, unspecified; L97.519 Non-pressure chronic ulcer of other part of right foot with unspecified severity; E11.65 Type 2 diabetes mellitus with hyperglycemia; J20.9 Acute bronchitis, unspecified; F32.9 Major depressive disorder, single episode, unspecified; E03.9 Hypothyroidism, unspecified; M19.91 Primary osteoarthritis, unspecified site; M79.7 Fibromyalgia; G47.30 Sleep apnea, unspecified; E78.5 Hyperlipidemia, unspecified; H35.30 Unspecified macular degeneration; E86.0 Dehydration; R26.9 Unspecified abnormalities of gait and mobility; F17.210 Nicotine dependence, cigarettes, uncomplicated; Z71.6 Tobacco abuse counseling; Z71.3 Dietary counseling and surveillance; Z79.82 Long term (current) use of aspirin; Z79.51 Long term (current) use of inhaled steroids; Z79.02 Long term (current) use of antithrombotics/antiplatelets; Z79.4 Long term (current) use of insulin; Z79.890 Hormone replacement therapy; Z79.899 Other long term (current) drug therapy; Z87.01 Personal history of pneumonia (recurrent); Z80.1 Family history of malignant neoplasm of trachea, bronchus and lung; Z80.8 Family history of malignant neoplasm of other organs or systems; Z82.49 Family history of ischemic heart disease and other diseases of the circulatory system
CPT/HCPCS: 36415; 36569; 71045; 71046; 76937; 77001; 80048; 80053; 80202; 82550; 82553; 83036; 83605; 83735; 83880; 85025; 85027; 85652; 86140; 87040; 87070; 87075; 87077; 87186; 87205; 88305; 88311; 94640; 94760; 96365; 96372; 99284

== ENCOUNTER 2018-01-01 11:21 | Day surgery (SDC) | payer MEDICARE, OTHER ==
[2017-12-31 10:47] VITALS: BMI 42.5
[2018-01-01] MEDS ORDERED: INSULIN ASPART 100 UNIT/ML 1 ML 10 ML VIAL SQ ONE ×3 (12:20→16:00)
[2018-01-01] MEDS ORDERED: SODIUM CHLORIDE 0.9% 1,000 ML IV ONE (12:39)
[2018-01-01 12:47] VITALS: TEMP 97.6
[2018-01-01] MEDS ORDERED: MIDAZOLAM 2 MG/2 ML VIAL IV ONE (12:57)
[2018-01-01] MEDS ORDERED: LIDOCAINE 1% INJ 10MG/ML (20 ML MDV) SQ ONE (13:06)
[2018-01-01 13:11] LABS: Glucose,Whole Blood 277 mg/dL (75-99)
[2018-01-01] MEDS ORDERED: IOPAMIDOL-370 100ML BTL INJ ONE (13:17)
[2018-01-01] MEDS ORDERED: fentaNYL (PF) 50 MCG/ML 2 ML AMP IV ONE ×2 (13:24)
[2018-01-01] MEDS ORDERED: hydrALAZINE HCL 20 MG/ML 1 ML VIAL IV ONE (13:26)
[2018-01-01] MEDS ORDERED: SODIUM CHLORIDE 0.9% 1,000 ML IV SCH (13:30)
[2018-01-01 14:25] LABS: Glucose,Whole Blood 229 mg/dL (75-99)
--- NOTE | 2018-01-01 14:30 | AN ---
ANGIOGRAPHY REPORT DATE OF SERVICE: 01/01/2018 PERFORMING PHYSICIAN: Shaan Staton MD, Marine Firefighter. PROCEDURE PERFORMED: 1. An abdominal aortogram. 2. Bilateral lower extremities runoff. INDICATION: This is a pleasant 57-year-old female patient with known history of peripheral arterial disease who was experiencing symptoms of intermittent claudication as well as critical limb ischemia. Because of that an aortogram and runoff was advised. APPROACH: Right radial site right common femoral artery. COMPLICATION: None. LEVEL OF SEDATION: Moderate sedation length of 30 minutes. PROCEDURE DESCRIPTION: After obtaining an informed consent, the patient was brought to cardiac helper animal laboratory the right radial artery site. The right common femoral artery was cannulated using micropuncture technique, the micropuncture wire passed easily, then I placed a 5-[place] sheath in the right common femoral artery. After that, I did an abdominal aortogram and bilateral lower extremity runoff using 5-[place] pigtail catheter. The procedure was completed without any complication. Selective for peripheral angiogram. 1. The aorta is angiographically normal. It bifurcates into right and left common iliac arteries. 2. Common iliac arteries right and left common iliac arteries are angiographically normal. 3. Internal iliac arteries right and left internal are patent. 4. External iliac arteries right and left external iliac arteries appeared to be angiographically normal. 5. Common femoral arteries the right and left common femoral arteries appear to have mild disease only. 6. Profunda the right and left profunda are patent. 7. SFA the right SFA has 2 lesions, 1 in the proximal SFA, 2 lesions in the midportion appeared to be in the range of 70%. The right SFA is stented with critical disease just distal to the stent appeared to be in the range of 90%. 8. The popliteal the right and left popliteal appeared to have mild disease only. Below the knee there are I a the arteries below the knee were not well visualized. Mild aortoiliac disease. 9. Severe right SFA disease and critical left SFA disease only. POSTPROCEDURE MANAGEMENT: BLAST FURNACE SUPERVISOR of the right and left SFA on separate stations. MMODL / IJN: [id number] /
--- NOTE | 2018-01-01 15:57 | IR ---
Fluoroscopy HISTORY: Nonhealing wounds 1.7 minutes fluoroscopy time supplied to the referring clinician. 93 intraoperative C-arm images doc ument the procedure. See dictated report from cardiology.
[2018-01-01 17:33] VITALS: RESP 18
[2018-01-01 18:40] VITALS: BP 160/84; PULSE 94
== END 2018-01-01 19:06 | disposition home or self-care (01) ==
LOC: CATHCVL 11:21 → 1SOBS 16:10 → CATHCVL 19:06
PROVIDERS: ATTEND Internal Medicine Interventional Cardiology
DX: E11.51 Type 2 diabetes mellitus with diabetic peripheral angiopathy without gangrene (principal); I10 Essential (primary) hypertension; E78.5 Hyperlipidemia, unspecified; G47.33 Obstructive sleep apnea (adult) (pediatric); F17.210 Nicotine dependence, cigarettes, uncomplicated; I99.8 Other disorder of circulatory system; Z79.4 Long term (current) use of insulin; Z79.899 Other long term (current) drug therapy; Z79.02 Long term (current) use of antithrombotics/antiplatelets; Z79.890 Hormone replacement therapy
CPT/HCPCS: 36200; 75625; 75716; C1894; C1769 ×3; J2250; J0360; J2001; J3010; Q9967

== ENCOUNTER → 2018-03-25 | Outpatient (CLI) | payer MEDICARE, OTHER ==
[2018-03-25 16:27] LABS: HCT 38.2 % (34.0-46.0); HGB 12.4 gm/dL (11.4-16.0); MCH 30.5 pg (25.0-35.0); MCHC 32.4 g/dL (31.0-37.0); Mean Platelet Volume 7.4; Platelet Count 284 k/uL (150-450); RBC 4.06 m/uL (3.80-5.40); RDW 14.3 % (11.5-15.5); WBC 11.6 k/uL (3.8-10.6)
[2018-03-25 16:37] LABS: Potassium 4.9 mmol/L (3.5-5.1)
== END | disposition home or self-care (01) ==
LOC: LABPAT 15:18
PROVIDERS: ATTEND Internal Medicine Interventional Cardiology
DX: Z01.812 Encounter for preprocedural laboratory examination (principal); I70.213 Atherosclerosis of native arteries of extremities with intermittent claudication, bilateral legs
CPT/HCPCS: 80051; 82565; 84520; 85027

== ENCOUNTER 2018-03-27 06:34 | Day surgery (SDC) | payer MEDICARE, OTHER ==
[2018-03-27] MEDS ORDERED: ASPIRIN 325 MG TAB ONE (07:38)
[2018-03-27] MEDS: INSULIN ASPART (NovoLOG) 100 UNIT/ML VIAL SQ SCH ×6 (07:40→21:17)
[2018-03-27] MEDS: HYDROcodone/APAP 5-325MG 1 EACH TAB PO PRN ×2 (07:40→21:16)
[2018-03-27 07:54] LABS: Glucose,Whole Blood 312 mg/dL (75-99)
[2018-03-27] MEDS ORDERED: MIDAZOLAM 2 MG/2 ML VIAL IV ONE (07:59)
[2018-03-27] MEDS ORDERED: niCARdipine 25 MG/10 ML VIAL ONE (08:00)
[2018-03-27] MEDS ORDERED: SODIUM CHLORIDE 0.9% (PF) 10 ML VIAL ONE (08:00)
[2018-03-27] MEDS ORDERED: fentaNYL (PF) 50 MCG/ML 2 ML AMP IVP ONE (08:28)
[2018-03-27] MEDS ORDERED: LIDOCAINE 1% INJ 10MG/ML (20 ML MDV) SQ ONE (08:33)
[2018-03-27] MEDS ORDERED: HEPARIN SODIUM 1,000 UN/ML (10ML VL) IV ONE ×2 (08:38→09:33)
[2018-03-27] MEDS ORDERED: IV FLUID CONTINUATION 1,000 ML IV ONE (09:34)
[2018-03-27] MEDS ORDERED: HYDROcodone/APAP 5-325MG 1 EACH TAB PO PRN (10:01)
[2018-03-27] MEDS ORDERED: PREGABALIN 50 MG CAP PO PRN (10:01)
[2018-03-27] MEDS ORDERED: CLOPIDOGREL 75 MG TAB PO ONE (10:01)
[2018-03-27] MEDS ORDERED: IOPAMIDOL-250 50ML BTL IV ONE ×2 (10:02)
[2018-03-27] MEDS ORDERED: SODIUM CHLORIDE 0.9% 1,000 ML IV SCH (10:15)
[2018-03-27] MEDS ORDERED: METOPROLOL TARTRATE 5 MG/5 ML VIAL IVP ONE (10:17)
[2018-03-27] MEDS ORDERED: hydrALAZINE HCL 20 MG/ML 1 ML VIAL IV ONE (10:17)
--- NOTE | 2018-03-27 11:46 | LTR ---
March 27, 2018 Re: Pop Thrasher Dear Dr. Gallardo: Mr. Pop Thrasher underwent successful atherectomy and balloon angioplasty of the right femoral artery with good angiographic results and without any complication. Thank you for allowing me to participate in her care and please do not hesitate to call if you have any question or concern. Sincerely, Shaan Staton MD MMJENNIFERL / ESTEEN: [id number] /
--- NOTE | 2018-03-27 12:07 | IR ---
Fluoroscopy HISTORY: Pain in right leg 19.6 minutes fluoroscopy time supplied to the referring clinician. 487 intraoperative C-arm images d ocument the procedure. See dictated report from cardiology.
[2018-03-27 12:14] LABS: Glucose,Whole Blood 277 mg/dL (75-99)
[2018-03-27] MEDS: hydrALAZINE HCL 20 MG/ML 1 ML VIAL IVP STA ×2 (12:20→14:19)
--- NOTE | 2018-03-27 12:37 | AN ---
ANGIOGRAPHY REPORT PERCUTANEOUS PERIPHERAL INTERVENTION: DATE OF SERVICE: 03/27/2018 PERFORMING PHYSICIAN: Shaan Staton MD, [employer]. PROCEDURE PERFORMED: 1. Selective right [id number]-krb-yzih angiogram. 2. Selective right popliteal/SFA angiogram. 3. Intravascular ultrasound IVUS of the right SFA. 4. Atherectomy of the right SFA using the orbital atherectomy device from [employer]. 5. Successful balloon angioplasty of the right SFA using 6 mm drug-coated balloon which was intact balloon with the length of 150 mm and 120 mm with an excellent angiographic result and reduction of stenosis from 90% to 0%. INDICATION: This is a pleasant 57-year-old female patient with a past medical history significant for diabetes, hypertension, and dyslipidemia, who was experiencing bilateral lower extremity intermittent claudication. She underwent a peripheral angiogram which revealed severe right SFA and critical left SFA. The patient does also follow with Dr. Zhou for a nonhealing wound involving the right lower extremity. She was brought today to undergo an intervention on the right SFA and subsequently the left SFA. COMPLICATION: None. LEVEL OF SEDATION: Moderate with sedation length of 90 minutes. PROCEDURE DESCRIPTION: After obtaining an informed consent, the patient was brought to the cardiac quality assurance qa lab analyst. The left common femoral artery was cannulated using micropuncture technique. The micropuncture wire passed easily, then I placed a 6-Italian sheath 11 cm in the left common femoral artery. After that, I did start anticoagulation using heparin, where the patient was given initially 10,000 units and subsequently 5000 units of heparin throughout the procedure with continuous ACT monitoring throughout the procedure. I did select the right SFA using a 5-Italian Rim catheter with 0.035 Angel[employer] Advantage wire, where the wire was advanced to the advanced to the right SFA. After that, I did exchange my 11 cm 6-Italian sheath into 70 cm 6-Italian Marquis sheath using a 0.35 Angelica Advantage wire. The tip of the long sheath was positioned in the proximal right SFA. After that, I did selective left hgrrh-yfz-psbt angiogram which revealed 3-vessel runoff below the knee as well as selective right SFA and right popliteal angiogram to identify the lesion which are involving the mid and distal right SFA. Subsequently, I did to assess the exact diameter of the right SFA and to assess an intermediate lesion involving the very distal SFA, to see if any do attack the or no. I did intravascular ultrasound which showed that the lesion was quite tight and calcified, and also I assessed the diameter of the right SFA which was 6 mm. At that point, I did exchange my 0.[address] wire which was used initially to wire the right SFA into 0.014 [employer]perWire using all 4 CXI catheter. After that I did atherectomy of the right SFA using the orbital atherectomy device from [facility]. I did use the 1.5 mm diameter vu. After that, I did balloon angioplasty initially using 5 mm x 200 mm regular balloon, then a 5 mm x 100 mm AngioSculpt balloon. After that, I did drug-coated balloon of the right SFA using 6 x 140 and in the distal and in the mid 6 x 120 mm balloon. The following angiogram showed good angiographic results with multiple area of non flow- limiting dissection which was assessed by IVUS again and seems to be none without any concerning finding. At that point, I decided to stop. After that, I did exchange my long 70 cm 6-Italian sheath into short 11 cm 6-Italian sheath using the 0.035 Angelica Advantage wire and finally I did selective left common femoral artery angiogram to assess the sheath entry. The procedure was completed without any complication. PROCEDURE MANAGEMENT: 1. Dual anti-platelet therapy. 2. Risk factors modifications. 3. Follow up with the patient. 4. SHIELD CLEANER of the left SFA to be done on separate session. DON / EMILEE: [id number] /
[2018-03-27 13:13] LABS: Glucose,Whole Blood 297 mg/dL (75-99)
[2018-03-27] MEDS: LEVOFLOXACIN 750 MG TAB PO SCH (14:02)
[2018-03-27] MEDS: MAG HYDROX/AL HYDROX/SIMETH 30 ML CUP PO PRN ×2 (14:02→18:48)
[2018-03-27 16:40] LABS: Glucose,Whole Blood 316 mg/dL (75-99)
[2018-03-27 16:57] VITALS: BMI 44.6
[2018-03-27] MEDS: VARENICLINE 1 MG TAB PO SCH (18:48)
[2018-03-27] MEDS: SYMBICORT 160-4.5 MCG INHALER INHALATION SCH (20:14)
[2018-03-27 20:33] LABS: Glucose,Whole Blood 322 mg/dL (75-99)
[2018-03-27] MEDS ORDERED: ATORVASTATIN 40 MG TAB PO SCH (21:00)
[2018-03-27] MEDS: INSULIN DETEMIR (LEVEMIR) 100 UNIT/ML SYR SQ SCH (22:02)
[2018-03-28 04:29] VITALS: RESP 16
[2018-03-28 05:59] LABS: Glucose,Whole Blood 363 mg/dL (75-99)
[2018-03-28] MEDS ORDERED: LEVOTHYROXINE 50 MCG TAB PO SCH (06:30)
[2018-03-28 06:33] LABS: Basophils # (A) 0.1 k/uL (0-0.2); Basophils % (A) 1 %; Eosinophils # (A) 0.5 k/uL (0-0.7); Eosinophils % (A) 4 %; HCT 35.1 % (34.0-46.0); HGB 11.5 gm/dL (11.4-16.0); Lymphocytes # (A) 1.3 k/uL (1.0-4.8); Lymphocytes % (A) 12 %; MCH 30.6 pg (25.0-35.0); MCHC 32.7 g/dL (31.0-37.0); MCV 93.6 fL (80.0-100.0); Mean Platelet Volume 6.9; Monocytes # (A) 0.5 k/uL (0-1.0); Monocytes % (A) 4 %; Neutrophils # (A) 8.8 k/uL (1.3-7.7); Neutrophils % (A) 78 %; Platelet Count 254 k/uL (150-450); RBC 3.75 m/uL (3.80-5.40); RDW 14.3 % (11.5-15.5); WBC 11.3 k/uL (3.8-10.6)
[2018-03-28 06:45] LABS: Calcium 9.4 mg/dL (8.4-10.2); Potassium 4.5 mmol/L (3.5-5.1)
[2018-03-28] MEDS: INSULIN ASPART (NovoLOG) 100 UNIT/ML VIAL SQ SCH ×2 (07:00)
[2018-03-28] MEDS: VARENICLINE 1 MG TAB PO SCH (07:01)
[2018-03-28] MEDS: SYMBICORT 160-4.5 MCG INHALER INHALATION SCH (08:52)
[2018-03-28] MEDS ORDERED: LINAGLIPTIN 5 MG TABLET PO SCH (09:00)
[2018-03-28] MEDS ORDERED: CLOPIDOGREL 75 MG TAB PO SCH (09:00)
[2018-03-28] MEDS ORDERED: LOSARTAN 50 MG TAB PO SCH (09:00)
[2018-03-28] MEDS ORDERED: amLODIPine 5 MG TAB PO SCH (09:00)
[2018-03-28] MEDS: LEVOFLOXACIN 750 MG TAB PO SCH (09:17)
[2018-03-28] MEDS: INSULIN DETEMIR (LEVEMIR) 100 UNIT/ML SYR SQ SCH (09:17)
[2018-03-28 09:29] VITALS: BP 132/78; PULSE 82; TEMP 98.3
[2018-03-28 11:18] LABS: Glucose,Whole Blood 363 mg/dL (75-99)
--- NOTE | 2018-03-28 20:20 | DS ---
DISCHARGE SUMMARY ADMISSION DATE: March 27, 2018 DATE OF DISCHARGE: March 28, 2018 BRIEF HISTORY: This is a pleasant 67-year-old female patient who was experiencing bilateral lower extremity intermittent claudication and evidence of critical limb ischemia of the right leg. She underwent a peripheral angiogram a few weeks ago and that revealed severe bilateral SFA worse on the left side than the right side. She was admitted to the hospital yesterday and underwent successful atherectomy and balloon angioplasty of the right SFA with good angiographic results and without any complication. Her procedure was performed from the left groin. On follow up with her today, she did have a soft and nontender left groin which was the access site. The patient is going to be discharged home on dual anti-platelet therapy and I will follow up with the patient next week in the office. She will be scheduled to undergo a IRON BENDER of the left SFA. DON / EMILEE: [id number] /
== END 2018-03-28 12:30 | disposition home or self-care (01) ==
LOC: CATHCVL 06:34 → 3SCARD 10:00 → CATHCVL 03-28 12:30
PROVIDERS: ATTEND Internal Medicine Interventional Cardiology
DX: I70.213 Atherosclerosis of native arteries of extremities with intermittent claudication, bilateral legs (principal); E11.51 Type 2 diabetes mellitus with diabetic peripheral angiopathy without gangrene; E78.5 Hyperlipidemia, unspecified; I10 Essential (primary) hypertension; G47.33 Obstructive sleep apnea (adult) (pediatric); F17.210 Nicotine dependence, cigarettes, uncomplicated; J44.9 Chronic obstructive pulmonary disease, unspecified; T81.89XD Other complications of procedures, not elsewhere classified, subsequent encounter; Z79.899 Other long term (current) drug therapy; Z79.02 Long term (current) use of antithrombotics/antiplatelets; Z79.890 Hormone replacement therapy; Z79.4 Long term (current) use of insulin; Z79.82 Long term (current) use of aspirin
CPT/HCPCS: 94640; 37225; 37252; 80048; 85025; C1894 ×2; C1714; C1769 ×5; C1725 ×2; C1753; C2623; J2250; J0360; J2001; J3010; J1644; Q9966

== ENCOUNTER 2018-04-23 20:34 | Inpatient (IN) | payer MEDICARE, OTHER ==
--- NOTE | 2018-04-23 20:44 | ED ---
Weakness HPI - General Stated complaint: weakness Time Seen by Provider: 04/23/18 20:37 Source: RN notes reviewed, old records reviewed - History of Present Illness Initial comments: This is a 57-year-old female the ER for evaluation. This patient resents today for evaluation regards to weakness. Patient mildly poor strain secondary to current altered mental state. Patient's brought in by EMS for weakness and not feeling well. Patient is also noted a fever. She denies any pain except some mild pain in her legs. She does have healing wounds of her legs which she is seeing wound care for. Patient also admits to being febrile weak and confused. Patient also with shortness of breath cough MD Complaint: generalized weakness, lack of energy -: hour(s) Location: generalized, LLE, RLE Severity: moderate Severity scale (1-10): 6 Quality: tingling, aching Consistency: constant Improves with: none Worsens with: none Context: recent illness Associated Symptoms: fever/chills - Related Data Home Medications Medication Instructions Recorded Confirmed Insulin Aspart [NovoLOG Flexpen] 16 units SQ AC-TID 10/19/17 04/23/18 Insulin Detemir [Levemir Flextouch] 60 unit SQ BID 11/06/17 04/23/18 Levothyroxine Sodium [Levoxyl] 50 mcg PO QAM 11/06/17 04/23/18 Linagliptin [Tradjenta] 5 mg PO QAM 11/06/17 04/23/18 amLODIPine [Norvasc] 5 mg PO QAM 11/06/17 04/23/18 Atorvastatin [Lipitor] 40 mg PO HS 12/31/17 04/23/18 Budesonide-Formot 160-4.5 Mcg 2 puff INHALATION BID 03/05/18 04/23/18 [Symbicort 160-4.5 Mcg Inhaler] Losartan Potassium [Cozaar] 100 mg PO QAM 03/05/18 04/23/18 Previous Rx's Medication Instructions Recorded Clopidogrel [Plavix] 75 mg PO DAILY #90 tab 04/27/16 Allergies Allergy/AdvReac Type Severity Reaction Status Date / Time No Known Allergies Allergy Verified 04/23/18 21:57 Review of Systems ROS Statement: Those systems with pertinent positive or pertinent negative responses have been documented in the HPI. ROS Other: All systems not noted in ROS Statement are negative. Past Medical History Past Medical History: COPD, Diabetes Mellitus, Eye Disorder, Fibromyalgia, Hyperlipidemia, Hypertension, Musculoskeletal Disorder, Neurologic Disorder, Osteoarthritis (OA), Pneumonia, Skin Disorder, Sleep Apnea/CPAP/BIPAP, Thyroid Disorder, Vascular Disorder Additional Past Medical History / Comment(s): IDDM type II, diabetic neuropathy hands and feet bilaterally, States she thinks she has Sleep Apnea., bilateral carpal tunnel, vertigo, slight [place] , macular degeneration , hx. bronchitis, & pneumonia., sinus problems, Incontinent bowel and bladder., states scabs on upper arms. , SFA disease, wound on right foot- states no wt bearing- using wheel chair History of Any Multi-Drug Resistant Organisms: None Reported Past Surgical History: No Surgical Hx Reported Additional Past Surgical History / Comment(s): Colonoscopy, PICC line, Angiogram with Arthrectomy and Femoral stent (2017)rt.3rd & 4th toe amputation 2018 Past Anesthesia/Blood Transfusion Reactions: No Reported Reaction Smoking Status: Current every day smoker - Past Family History Mother Family Medical History: Cancer Additional Family Medical History / Comment(s): Mother at 69yrs of age of lung cancer. Father Family Medical History: Cancer Additional Family Medical History / Comment(s): Father at 60 yrs of age of mesothelioma. Brother(s) Family Medical History: Coronary Artery Disease (CAD) Sister(s) Family Medical History: Hypertension Daughter(s) Family Medical History: No Reported History Son(s) Family Medical History: No Reported History General Exam General appearance: alert, in no apparent distress Head exam: Present: atraumatic, normocephalic, normal inspection Eye exam: Present: normal appearance, PERRL, EOMI. Absent: scleral icterus, conjunctival injection, periorbital swelling ENT exam: Present: normal exam, mucous membranes moist Neck exam: Present: normal inspection. Absent: tenderness, meningismus, lymphadenopathy Respiratory exam: Present: respiratory distress, wheezes, accessory muscle use, decreased breath sounds, prolonged expiratory. Absent: rales, rhonchi, stridor Cardiovascular Exam: Present: normal rhythm, tachycardia, normal heart sounds. Absent: systolic murmur, diastolic murmur, rubs, gallop, clicks GI/Abdominal exam: Present: soft, normal bowel sounds. Absent: distended, tenderness, guarding, rebound, rigid Extremities exam: Present: normal inspection, full ROM, normal capillary refill. Absent: tenderness, pedal edema, joint swelling, calf tenderness Back exam: Present: normal inspection Neurological exam: Present: alert, oriented X3, CN II-XII intact Psychiatric exam: Present: normal affect, normal mood Skin exam: Present: warm, dry, intact, normal color. Absent: rash Course Vital Signs 04/23/18 20:58 Temperature 100.9 F H Pulse Rate 110 H Respiratory 18 Rate Blood Pressure 135/82 O2 Sat by Pulse 90 L Oximetry - Reevaluation(s) Reevaluation #1: 04/23/18 21:27 Medical record is reviewed Reevaluation #2: 04/23/18 21:28 Patient's symptoms are mildly improved with fever control EKG Findings - EKG Comments: EKG Findings:: EKG shows sinus tachycardia rate of 106, OK 172, QRS 04, QTc 4:30 Medical Decision Making - Medical Decision Making 57 female the ER for evaluation. Patient resents today for evaluation with regards to altered mental status fever. Positive for influenza. Patient be admitted for urinary monitoring control. Patient also has likely diabetic ulcer infections of bilateral lower extremities. We will also treat with antibiotics for that, x-rays difficult rule out pneumonia at this time. Patient replace on breathing treatments for significant COPD - Lab Data Result diagrams: 04/23/18 21:00 Lab Results 04/23/18 04/23/18 04/23/18 Range/Units 21:00 21:00 21:00 WBC 13.7 H (3.8-10.6) k/uL RBC 3.96 (3.80-5.40) m/uL Hgb 12.2 (11.4-16.0) gm/dL Hct 37.4 (34.0-46.0) % MCV 94.3 (80.0-100.0) fL MCH 30.7 (25.0-35.0) pg MCHC 32.5 (31.0-37.0) g/dL RDW 13.9 (11.5-15.5) % Plt Count 191 (150-450) k/uL Neutrophils % 92 % Lymphocytes % 3 % Monocytes % 4 % Eosinophils % 1 % Basophils % 0 % Neutrophils # 12.6 H (1.3-7.7) k/uL Lymphocytes # 0.5 L (1.0-4.8) k/uL Monocytes # 0.5 (0-1.0) k/uL Eosinophils # 0.2 (0-0.7) k/uL Basophils # 0.0 (0-0.2) k/uL Hypochromasia Slight PT (9.0-12.0) sec INR (<1.2) APTT (22.0-30.0) sec Plasma Lactic Acid Madhu 2.7 H* (0.7-2.0) mmol/L Influenza Type A RNA Detected H (Not Detectd) Influenza Type B (PCR) Not Detected (Not Detectd) 04/23/18 Range/Units 21:00 WBC (3.8-10.6) k/uL RBC (3.80-5.40) m/uL Hgb (11.4-16.0) gm/dL Hct (34.0-46.0) % MCV (80.0-100.0) fL MCH (25.0-35.0) pg MCHC (31.0-37.0) g/dL RDW (11.5-15.5) % Plt Count (150-450) k/uL Neutrophils % % Lymphocytes % % Monocytes % % Eosinophils % % Basophils % % Neutrophils # (1.3-7.7) k/uL Lymphocytes # (1.0-4.8) k/uL Monocytes # (0-1.0) k/uL Eosinophils # (0-0.7) k/uL Basophils # (0-0.2) k/uL Hypochromasia PT 9.5 (9.0-12.0) sec INR 0.9 (<1.2) APTT 26.1 (22.0-30.0) sec Plasma Lactic Acid Madhu (0.7-2.0) mmol/L Influenza Type A RNA (Not Detectd) Influenza Type B (PCR) (Not Detectd) - Radiology Data Radiology results: report reviewed (Chest x-rays negative for acute disease), image reviewed Critical Care Time Critical Care Time: Yes Total Critical Care Time: 31 Disposition Clinical Impression: COPD (chronic obstructive pulmonary disease), 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
[2018-04-23] MEDS ORDERED: ACETAMINOPHEN TAB 500 MG TAB PO STA (20:58)
[2018-04-23] MEDS ORDERED: IBUPROFEN 400 MG TAB PO STA (20:58)
[2018-04-23] MEDS ORDERED: SODIUM CHLORIDE 0.9% 500 ML 500 ML IV STA (20:58)
[2018-04-23] MEDS ORDERED: SODIUM CHLORIDE 0.9% 1,000 ML IV STA ×2 (20:58→22:38)
[2018-04-23] MEDS ORDERED: VANCOMYCIN IV PER PHARMACY 1 EACH MISC MISCELLANE PRN (20:59)
[2018-04-23] MEDS ORDERED: VANCOMYCIN 2,000 MG in SODIUM CHLORIDE 0.9% 500 ML 500 ML IVPB STA (21:08)
[2018-04-23] MEDS ORDERED: IPRATROPIUM-ALBUTEROL 3 ML NEB INHALATION STA (21:28)
[2018-04-23] MEDS: SODIUM CHLORIDE 0.9% 1,000 ML IV STA (22:04)
--- NOTE | 2018-04-23 22:07 | XR ---
EXAMINATION: XR chest 2V DATE AND TIME: 04/23/2018 9:53 PM CLINICAL INDICATION: PHH; Weakness TECHNIQUE: Departmental protocol COMPARISON: 12/01/2017 FINDINGS: The lungs show a prominent interstitial pattern of increased density throughout the lungs symmetrical ly obscuring the pulmonary vasculature, consistent with interstitial phase pulmonary edema with areas of coalescent alveolar phase cardiogenic pulmonary edema. In addition, dense consolidation is seen i n the retrocardiac left lower lobe, can correlate with a clinical diagnosis of left lower lobe bronch opneumonia. Six-week follow-up PA and lateral chest radiograph are recommended to prove resolution of the findings. The pleural spaces are negative. The cardiac silhouette is relate enlarged. The skeletal structures and soft tissues are negative for acute findings. IMPRESSION: PROMINENT LUNG FINDINGS.
[2018-04-23 22:11] LABS: Basophils % (A) 0 %; Eosinophils # (A) 0.2 k/uL (0-0.7); Eosinophils % (A) 1 %; HCT 37.4 % (34.0-46.0); HGB 12.2 gm/dL (11.4-16.0); Hypochromasia Slight; Lymphocytes # (A) 0.5 k/uL (1.0-4.8); Lymphocytes % (A) 3 %; MCH 30.7 pg (25.0-35.0); MCHC 32.5 g/dL (31.0-37.0); MCV 94.3 fL (80.0-100.0); Mean Platelet Volume 8.9; Monocytes # (A) 0.5 k/uL (0-1.0); Monocytes % (A) 4 %; Neutrophils # (A) 12.6 k/uL (1.3-7.7); Neutrophils % (A) 92 %; Platelet Count 191 k/uL (150-450); RBC 3.96 m/uL (3.80-5.40); RDW 13.9 % (11.5-15.5); WBC 13.7 k/uL (3.8-10.6)
[2018-04-23 22:22] LABS: INR 0.9 (<1.2); Partial Thromboplastin Time 26.1 sec (22.0-30.0); Prothrombin Time 9.5 sec (9.0-12.0)
[2018-04-23] MEDS ORDERED: PNEUMONIA PROTOCOL UTILIZED 1 EACH MISC PO PRN (22:38)
[2018-04-23] MEDS ORDERED: AZITHROMYCIN 500 MG in SODIUM CHLORIDE 0.9% 250 ML IVPB STA (22:43)
[2018-04-23 23:27] LABS: Amorphous Sediment,Urine Rare /hpf; Appearance,Urine Clear (Clear); Bilirubin,Urine Negative (Negative); Blood,Urine Small (Negative); Color,Urine Light Yellow; Glucose,Urine (UA) 4+ (Negative); Hyaline Casts,Urine 7 /lpf (0-2); Ketones,Urine Negative (Negative); Leukocyte Esterase,Urine Negative (Negative); Mucus,Urine Rare /hpf; Nitrite,Urine Negative (Negative); PH, Urine 6.5 (5.0-8.0); Protein,Urine 3+ (Negative); RBC,Urine 1 /hpf (0-5); Specific Gravity,Urine 1.014 (1.001-1.035); Squamous Epithelial Cell,Urine <1 /hpf (0-4); Urobilinogen,Urine <2.0 mg/dL (<2.0); WBC,Urine 2 /hpf (0-5)
[2018-04-23 23:33] LABS: ALT 21 U/L (9-52); AST 17 U/L (14-36); Albumin 1.6 g/dL (3.5-5.0); Alkaline Phosphatase 64 U/L (38-126); Anion Gap 4 mmol/L; Blood Urea Nitrogen 18 mg/dL (7-17); Carbon Dioxide 16 mmol/L (22-30); Chloride 116 mmol/L (98-107); Glucose 308 mg/dL (74-99); Magnesium 1.1 mg/dL (1.6-2.3); Phosphorus 2.6 mg/dL (2.5-4.5); Potassium 3.2 mmol/L (3.5-5.1); Sodium 136 mmol/L (137-145); Total Bilirubin 0.3 mg/dL (0.2-1.3); Total Protein 3.8 g/dL (6.3-8.2)
[2018-04-24 00:04] LABS: Calcium 5.6 mg/dL (8.4-10.2)
[2018-04-24] MEDS ORDERED: INSULIN REGULAR 100 UNIT/ML VIAL IV ONE (00:10)
[2018-04-24] MEDS: SODIUM CHLORIDE 0.9% 1,000 ML IV STA (00:38)
[2018-04-24] MEDS: IPRATROPIUM-ALBUTEROL 3 ML NEB INHALATION SCH ×4 (06:25→20:25)
[2018-04-24 07:27] LABS: Glucose,Whole Blood 458 mg/dL (75-99)
[2018-04-24] MEDS ORDERED: INSULIN ASPART (NovoLOG) 100 UNIT/ML VIAL SQ SCH ×2 (07:30→12:30)
[2018-04-24 08:26] LABS: HCT 33.8 % (34.0-46.0); HGB 10.3 gm/dL (11.4-16.0); Hypochromasia Moderate; MCH 29.9 pg (25.0-35.0); MCHC 30.5 g/dL (31.0-37.0); Mean Platelet Volume 8.4; Platelet Count 182 k/uL (150-450); RBC 3.45 m/uL (3.80-5.40); RDW 13.8 % (11.5-15.5); WBC 11.6 k/uL (3.8-10.6)
[2018-04-24 08:32] LABS: Glucose,Whole Blood 442 mg/dL (75-99)
[2018-04-24 08:39] LABS: Calcium 8.4 mg/dL (8.4-10.2); Potassium 4.4 mmol/L (3.5-5.1)
[2018-04-24] MEDS ORDERED: ENOXAPARIN 40 MG/0.4 ML SYRINGE SQ SCH (09:00)
[2018-04-24] MEDS ORDERED: INSULIN ASPART (NovoLOG) 100 UNIT/ML VIAL SQ ONE (09:52)
[2018-04-24] MEDS ORDERED: IPRATROPIUM-ALBUTEROL 3 ML NEB INHALATION PRN (09:54)
[2018-04-24] MEDS ORDERED: INSULIN DETEMIR (LEVEMIR) 100 UNIT/ML SYR SQ SCH (10:00)
[2018-04-24] MEDS ORDERED: SYMBICORT 160-4.5 MCG INHALER INHALATION SCH (10:00)
[2018-04-24] MEDS: CLOPIDOGREL 75 MG TAB PO SCH (10:41)
--- NOTE | 2018-04-24 11:01 | P.HPIM ---
History of Present Illness This is a pleasant 67 years old female with past medical history of COPD, diabetes mellitus, fibromyalgia, hyperlipidemia, hypertension, arthritis, sleep apnea on CPAP/BiPAP, recent history of diabetic right foot ulcer and osteomyel itis, hypothyroidism, diabetic neuropathy of hands and feet, , history of pneumonia, bowel and urinary incontinence. Her PCP is Dr. Mcknight. Patient states she was feeling not good for 2 days which she got worse yesterday so she doesn't come to the hospital without specification. Patient complaining from generalized myalgia and arthralgia, she has some dry cough but no flame. With the emergency room patient states that she started having dyspnea. However she denies chest pain or discomfort. No abdominal pain. No change in urine or bowel habits. On admission she had fever of 100.9. Her oxygen requirement increased from 5 L/m 15 L/m. Blood pressure 106/57. She had mild leukocytosis of 11.6 K, hemoglobin 10.3. Platelets 182. Sodium 132. Creatinine increased 1.9 compared to baseline of 0.7. Sugar is elevated at 454. Lactic acid was 5.0, down to 4.1. Calcium 8.4. Troponin is elevated at 0.6 and 0.79. ProBNP is 1540. Influenza A is detected.. Chest x-ray: Pulmonary congestion with possible pulmonary edema and possible retrocardiac and lower lobe infiltrate. EKG: Sinus tachycardia at 106, no significant ST-T changes. QTC 4:30 In the emergency room patient received ibuprofen, fluids more than 2 L and symmetrical normal saline and the fluid per hour. She got ceftriaxone and vancomycin. And Zithromax. She was started on Lovenox, Plavix and insulin. Review of Systems CONSTITUTIONAL: No fever, no malaise, no fatigue. HEENT: No recent visual problems or hearing problems. Denied any sore throat. CARDIOVASCULAR: No orthopnea, PND, no palpitations, no syncope. PULMONARY: No shortness of breath, no cough, no hemoptysis. GASTROINTESTINAL: No diarrhea, no nausea, no vomiting, no abdominal pain. Normoactive bowel sounds. NEUROLOGICAL: No headaches, no weakness, no numbness. HEMATOLOGICAL: Denies any bleeding or petechiae. GENITOURINARY: Denies any burning micturition, frequency, or urgency. MUSCULOSKELETAL/RHEUMATOLOGICAL: Denies any joint pain, swelling, or any muscle pain. ENDOCRINE: Denies any polyuria or polydipsia. Past Medical History Past Medical History: COPD, Diabetes Mellitus, Eye Disorder, Fibromyalgia, Hyperlipidemia, Hypertension, Musculoskeletal Disorder, Neurologic Disorder, Osteoarthritis (OA), Pneumonia, Skin Disorder, Sleep Apnea/CPAP/BIPAP, Thyroid Disorder, Vascular Disorder Additional Past Medical History / Comment(s): IDDM type II, diabetic neuropathy hands and feet bilaterally, States she thinks she has Sleep Apnea., bilateral carpal tunnel, vertigo, slight [place] , macular degeneration , hx. bronchitis, & pneumonia., sinus problems, Incontinent bowel and bladder., states scabs on upper arms. , SFA disease, wound on right foot- states no wt bearing- using wheel chair History of Any Multi-Drug Resistant Organisms: None Reported Past Surgical History: No Surgical Hx Reported Additional Past Surgical History / Comment(s): Colonoscopy, PICC line, Angiogram with Arthrectomy and Femoral stent (2017)rt.3rd & 4th toe amputation 2018 Past Anesthesia/Blood Transfusion Reactions: No Reported Reaction Past Psychological History: No Psychological Hx Reported Additional Psychological History / Comment(s): . Smoking Status: Former smoker Past Alcohol Use History: None Reported Additional Past Alcohol Use History / Comment(s): Pt started smoking in 1968, pt taking chantix, states she smokes about 3 cigarettes per day, used to smoke 2 ppd Past Drug Use History: None Reported - Past Family History Mother Family Medical History: Cancer Additional Family Medical History / Comment(s): Mother at 69yrs of age of lung cancer. Father Family Medical History: Cancer Additional Family Medical History / Comment(s): Father at 60 yrs of age of mesothelioma. Brother(s) Family Medical History: Coronary Artery Disease (CAD) Sister(s) Family Medical History: Hypertension Daughter(s) Family Medical History: No Reported History Son(s) Family Medical History: No Reported History Medications and Allergies Home Medications Medication Instructions Recorded Confirmed Type Clopidogrel [Plavix] 75 mg PO DAILY #90 tab 04/27/16 04/23/18 Rx Insulin Aspart [NovoLOG Flexpen] 16 units SQ AC-TID 10/19/17 04/23/18 History Insulin Detemir [Levemir Flextouch] 60 unit SQ BID 11/06/17 04/23/18 History Levothyroxine Sodium [Levoxyl] 50 mcg PO QAM 11/06/17 04/23/18 History Linagliptin [Tradjenta] 5 mg PO QAM 11/06/17 04/23/18 History amLODIPine [Norvasc] 5 mg PO QAM 11/06/17 04/23/18 History Atorvastatin [Lipitor] 40 mg PO HS 12/31/17 04/23/18 History Budesonide-Formot 160-4.5 Mcg 2 puff INHALATION BID 03/05/18 04/23/18 History [Symbicort 160-4.5 Mcg Inhaler] Losartan Potassium [Cozaar] 100 mg PO QAM 03/05/18 04/23/18 History Allergies Allergy/AdvReac Type Severity Reaction Status Date / Time No Known Allergies Allergy Verified 04/23/18 21:57 Physical Exam Vitals: Vital Signs Temp Pulse Pulse Resp BP BP Pulse Ox 04/24/18 07:00 98.8 F 99 20 106/57 92 L 04/24/18 06:41 92 L 04/24/18 06:35 99 04/24/18 06:26 97 85 L 04/24/18 06:23 98.4 F 96 20 103/65 90 L 04/24/18 04:00 20 04/24/18 01:30 98.0 F 95 20 91/58 92 L 04/24/18 00:05 102 H 16 106/61 94 L 04/23/18 23:47 95 04/23/18 23:34 91 04/23/18 23:20 100.2 F H 95 16 95/50 94 L 04/23/18 20:58 100.9 F H 110 H 18 135/82 90 L Intake and Output 04/23/18 04/24/18 04/24/18 22:59 06:59 14:59 Intake Total 430 Balance 430 Intake: Intake, IV Titration 250 Amount Sodium Chloride 0.9% 1, 250 000 ml @ 100 mls/hr IV . Q10H STA Rx#:[id number] Oral 180 Other: # Voids 1 # Bowel Movements 1 Weight 127.006 kg GENERAL: The patient is alert and oriented x3, not in any acute distress. Well developed, well nourished. HEENT: Pupils are round and equally reacting to light. EOMI. No scleral icterus. No conjunctival pallor. Normocephalic, atraumatic. No pharyngeal erythema. No thyromegaly. CARDIOVASCULAR: S1 and S2 present. No murmurs, rubs, or gallops. PULMONARY: Chest is clear to auscultation, no wheezing or crackles. ABDOMEN: Soft, nontender, nondistended, normoactive bowel sounds. No palpable organomegaly. MUSCULOSKELETAL: No joint swelling or deformity. EXTREMITIES: No cyanosis, clubbing, or pedal edema. NEUROLOGICAL: Gross neurological examination did not reveal any focal deficits. SKIN: No rashes. Results CBC & Chem 7: 04/24/18 07:49 04/24/18 07:49 Labs: Abnormal Lab Results - Last 24 Hours (Table) 04/23/18 04/23/18 04/23/18 Range/Units 21:00 21:00 21:00 WBC 13.7 H (3.8-10.6) k/uL RBC (3.80-5.40) m/uL Hgb (11.4-16.0) gm/dL Hct (34.0-46.0) % MCHC (31.0-37.0) g/dL Neutrophils # 12.6 H (1.3-7.7) k/uL Lymphocytes # 0.5 L (1.0-4.8) k/uL Sodium (137-145) mmol/L Potassium (3.5-5.1) mmol/L Chloride (98-107) mmol/L Carbon Dioxide (22-30) mmol/L BUN (7-17) mg/dL Creatinine (0.52-1.04) mg/dL Glucose (74-99) mg/dL POC Glucose (mg/dL) (75-99) mg/dL Plasma Lactic Acid Madhu 2.7 H* (0.7-2.0) mmol/L Calcium (8.4-10.2) mg/dL Magnesium (1.6-2.3) mg/dL Troponin I (0.000-0.034) ng/mL Total Protein (6.3-8.2) g/dL Albumin (3.5-5.0) g/dL Urine Protein (Negative) Urine Glucose (UA) (Negative) Urine Blood (Negative) Amorphous Sediment (None) /hpf Hyaline Casts (0-2) /lpf Urine Mucus (None) /hpf Influenza Type A RNA Detected H (Not Detectd) 04/23/18 04/23/18 04/23/18 Range/Units 22:48 23:00 23:00 WBC (3.8-10.6) k/uL RBC (3.80-5.40) m/uL Hgb (11.4-16.0) gm/dL Hct (34.0-46.0) % MCHC (31.0-37.0) g/dL Neutrophils # (1.3-7.7) k/uL Lymphocytes # (1.0-4.8) k/uL Sodium 136 L (137-145) mmol/L Potassium 3.2 L (3.5-5.1) mmol/L Chloride 116 H (98-107) mmol/L Carbon Dioxide 16 L (22-30) mmol/L BUN 18 H (7-17) mg/dL Creatinine (0.52-1.04) mg/dL Glucose 308 H (74-99) mg/dL POC Glucose (mg/dL) (75-99) mg/dL Plasma Lactic Acid Mahdu (0.7-2.0) mmol/L Calcium 5.6 L* (8.4-10.2) mg/dL Magnesium 1.1 L (1.6-2.3) mg/dL Troponin I 0.634 H* (0.000-0.034) ng/mL Total Protein 3.8 L (6.3-8.2) g/dL Albumin 1.6 L (3.5-5.0) g/dL Urine Protein 3+ H (Negative) Urine Glucose (UA) 4+ H (Negative) Urine Blood Small H (Negative) Amorphous Sediment Rare H (None) /hpf Hyaline Casts 7 H (0-2) /lpf Urine Mucus Rare H (None) /hpf Influenza Type A RNA (Not Detectd) 04/24/18 04/24/18 04/24/18 Range/Units 03:15 07:14 07:49 WBC 11.6 H (3.8-10.6) k/uL RBC 3.45 L (3.80-5.40) m/uL Hgb 10.3 L (11.4-16.0) gm/dL Hct 33.8 L (34.0-46.0) % MCHC 30.5 L (31.0-37.0) g/dL Neutrophils # (1.3-7.7) k/uL Lymphocytes # (1.0-4.8) k/uL Sodium (137-145) mmol/L Potassium (3.5-5.1) mmol/L Chloride (98-107) mmol/L Carbon Dioxide (22-30) mmol/L BUN (7-17) mg/dL Creatinine (0.52-1.04) mg/dL Glucose (74-99) mg/dL POC Glucose (mg/dL) 458 H (75-99) mg/dL Plasma Lactic Acid Madhu 5.0 H* (0.7-2.0) mmol/L Calcium (8.4-10.2) mg/dL Magnesium (1.6-2.3) mg/dL Troponin I (0.000-0.034) ng/mL Total Protein (6.3-8.2) g/dL Albumin (3.5-5.0) g/dL Urine Protein (Negative) Urine Glucose (UA) (Negative) Urine Blood (Negative) Amorphous Sediment (None) /hpf Hyaline Casts (0-2) /lpf Urine Mucus (None) /hpf Influenza Type A RNA (Not Detectd) 04/24/18 04/24/18 04/24/18 Range/Units 07:49 07:49 07:49 WBC (3.8-10.6) k/uL RBC (3.80-5.40) m/uL Hgb (11.4-16.0) gm/dL Hct (34.0-46.0) % MCHC (31.0-37.0) g/dL Neutrophils # (1.3-7.7) k/uL Lymphocytes # (1.0-4.8) k/uL Sodium 132 L (137-145) mmol/L Potassium (3.5-5.1) mmol/L Chloride (98-107) mmol/L Carbon Dioxide (22-30) mmol/L BUN 28 H (7-17) mg/dL Creatinine 1.93 H (0.52-1.04) mg/dL Glucose 454 H (74-99) mg/dL POC Glucose (mg/dL) (75-99) mg/dL Plasma Lactic Acid Madhu 4.1 H* (0.7-2.0) mmol/L Calcium (8.4-10.2) mg/dL Magnesium (1.6-2.3) mg/dL Troponin I 0.798 H* (0.000-0.034) ng/mL Total Protein (6.3-8.2) g/dL Albumin (3.5-5.0) g/dL Urine Protein (Negative) Urine Glucose (UA) (Negative) Urine Blood (Negative) Amorphous Sediment (None) /hpf Hyaline Casts (0-2) /lpf Urine Mucus (None) /hpf Influenza Type A RNA (Not Detectd) 04/24/18 Range/Units 08:30 WBC (3.8-10.6) k/uL RBC (3.80-5.40) m/uL Hgb (11.4-16.0) gm/dL Hct (34.0-46.0) % MCHC (31.0-37.0) g/dL Neutrophils # (1.3-7.7) k/uL Lymphocytes # (1.0-4.8) k/uL Sodium (137-145) mmol/L Potassium (3.5-5.1) mmol/L Chloride (98-107) mmol/L Carbon Dioxide (22-30) mmol/L BUN (7-17) mg/dL Creatinine (0.52-1.04) mg/dL Glucose (74-99) mg/dL POC Glucose (mg/dL) 442 H (75-99) mg/dL Plasma Lactic Acid Madhu (0.7-2.0) mmol/L Calcium (8.4-10.2) mg/dL Magnesium (1.6-2.3) mg/dL Troponin I (0.000-0.034) ng/mL Total Protein (6.3-8.2) g/dL Albumin (3.5-5.0) g/dL Urine Protein (Negative) Urine Glucose (UA) (Negative) Urine Blood (Negative) Amorphous Sediment (None) /hpf Hyaline Casts (0-2) /lpf Urine Mucus (None) /hpf Influenza Type A RNA (Not Detectd) Thrombosis Risk Factor Assmnt - Choose All That Apply Each Factor Represents 1 point: Abnormal pulmonary function (COPD), Heart failure (<1month), Obesity (BMI >25), Serious lung disease incl. pneumonia (< 1month), Swollen legs (current) Thrombosis Risk Factor Assessment Total Risk Factor Score: 5 Thrombosis Risk Factor Assessment Level: High Risk Assessment and Plan Assessment: Acute pulmonary edema/congestion Elevated troponins, suspicious for non-STEMI community acquired acute pneumonia Acute influenza a infection with possible pneumonia Systemic inflammatory response with fever and tachycardia Sepsis secondary to influenza pneumonia with possible superimposed bacterial infection Acute hypoxic respiratory failure secondary to above Acute kidney injury High Lactic acid Metabolic versus respiratory and toxic encephalopathy. mild History of COPD, and acute exacerbation. recent history of diabetic right foot ulcer and osteomyelitis,not on antibiotic. she follows up with vascular surgery and wound clinic. Diabetes mellitus Hypertension Hyperlipidemia Hypothyroidism History of sleep apnea Morbid obesity Plan: this is a pleasant 57 this old female who presents with acute influenza pneumonia and acute CHF, and elevated troponins. We'll continue with oxygen therapy, antibiotic and to start Tamiflu. Patient will be transferred to the intensive care unit, case was discussed with Dr. Huang was on consult for pulmonary/critical care. Cardiology consult. Nephrology consult. Insulin therapy. Labs and medication were reviewed.. Continue same treatment. Continue with symptomatic treatment. Resume home medication. Monitor lytes and vitals. DVT and GI prophylaxis. Further recommendations of the clinical course of the patient DVT prophylaxis: sc lovenox GI Prophylaxis: Pepcid Prognosis is guarded and critical
[2018-04-24] MEDS ORDERED: VANCOMYCIN 2,000 MG in SODIUM CHLORIDE 0.9% 500 ML 500 ML IVPB ONE (12:00)
[2018-04-24 12:18] LABS: Glucose,Whole Blood 428 mg/dL (75-99)
--- NOTE | 2018-04-24 12:48 | ECHOF ---
Referral Reason:elev trop MEASUREMENTS -------- HEIGHT: 160.0 cm WEIGHT: 127.0 kg BP: 106/57 RVIDd: 2.5 cm (< 3.3) IVSd: 1.3 cm (0.6 - 1.1) LVIDd: 4.3 cm (3.9 - 5.3) LVPWd: 1.2 cm (0.6 - 1.1) IVSs: 1.5 cm LVIDs: 3.2 cm LVPWs: 1.5 cm LAESV Index (A-L): 26.50 ml/m Ao Diam: 3.0 cm (2.0 - 3.7) AV Cusp: 1.7 cm (1.5 - 2.6) LA Diam: 3.2 cm (2.7 - 3.8) EPSS: 0.5 cm MV E Vick: 1.15 m/s MV DecT: 280 ms MV A Vick: 1.14 m/s MV E/A Ratio: 1.02 RAP: 5.00 mmHg RVSP: 15.88 mmHg MV EF SLOPE: 94.17 mm/s (70 - 150) MV EXCURSION: 1.30 cm (> 18.000) FINDINGS -------- Sinus rhythm. This was a technically difficult study with suboptimal views. The left ventricular size is normal. There is mild concentric left ventricular hypertrophy. Overa ll left ventricular systolic function is normal with, an EF between 55 - 60 %. The right ventricle is normal in size. Normal LA size by volume 22+/-6 ml/m2. The right atrium was not well visualized. 3 ml of Lumason was utilized for enhancement of images. The aortic valve is trileaflet and appears structurally normal. The mitral valve is normal. There is trace to mild mitral regurgitation. Trace tricuspid regurgitation present. Right ventricular systolic pressure is normal at < 35 mmHg. The right ventricular systolic pressure, as measured by Doppler, is 15.88mmHg. The pulmonic valve was not well visualized. The aortic root size is normal. IVC Not well visulized. There is no pericardial effusion. CONCLUSIONS -------- 1. Sinus rhythm. 2. This was a technically difficult study with suboptimal views. 3. The left ventricular size is normal. 4. There is mild concentric left ventricular hypertrophy. 5. Overall left ventricular systolic function is normal with, an EF between 55 - 60 %. 6. Normal LA size by volume 22+/-6 ml/m2. 7. The right atrium was not well visualized. 8. 3 ml of Lumason was utilized for enhancement of images. 9. The aortic valve is trileaflet and appears structurally normal. 10. There is trace to mild mitral regurgitation. 11. Trace tricuspid regurgitation present. 12. Right ventricular systolic pressure is normal at < 35 mmHg. 13. The pulmonic valve was not well visualized. 14. The aortic root size is normal. 15. IVC Not well visulized. 16. There is no pericardial effusion. SHOW OPERATIONS SUPERVISOR: Héctor Azar RDCS
[2018-04-24] MEDS ORDERED: INSULIN REGULAR BOLUS (FROM DRIP BAG) IV PRN ×2 (12:59→13:35)
[2018-04-24] MEDS ORDERED: INSULIN REGULAR 100 UNIT in SODIUM CHLORIDE 0.9% 100 ML IV SCH (13:00)
[2018-04-24] MEDS ORDERED: traMADol 50 MG TAB PO SCH (13:00)
[2018-04-24] MEDS: OSELTAMIVIR 60 MG/10 ML ORAL SYRINGE PO SCH (13:05)
--- NOTE | 2018-04-24 13:50 | XR ---
EXAMINATION TYPE: XR chest 1V portable DATE OF EXAM: 04/24/2018 COMPARISON: 04/23/2018 HISTORY: Cough TECHNIQUE: Single frontal view of the chest is obtained. FINDINGS: There is a persistent retrocardiac opacity suspicious for pneumonia. However the lower kamari gs are partially obscured by overlying soft tissues that are copious. Interstitial prominence seen on the prior has improved. There is redemonstration of an enlarged cardiac silhouette. IMPRESSION: Retrocardiac airspace disease is again seen suspicious for pneumonia. This is slightly l imited by overlying copious soft tissues. For further follow-up exams lateral would be of benefit. In terstitial pulmonary edema has improved.
[2018-04-24] MEDS ORDERED: Magnesium Replacement Protocol 1 EACH MISC MISCELLANE PRN (14:00)
[2018-04-24] MEDS: FUROSEMIDE 10 MG/ML 4 ML VIAL IV SCH (14:01)
--- NOTE | 2018-04-24 14:01 | P.CRDCN ---
History of Present Illness History of present illness: This is a pleasant 57-year-old female past medical history significant for peripheral vascular disease status post TIRE BAGGER to the right SFA March 2018, hypertension, dyslipidemia, diabetes mellitus, COPD, obstructive sleep apnea and chronic nicotine dependence. She follows in the office with Dr. Robert. We have been asked to see her in consultation. She presented to the hospital with symptoms of cough, congestion and generalized weakness. Upon arrival she was noted to be febrile was positive for influenza A. She is seen and examined sitting up in bed in no acute distress. She states she has shortness of breath times as well worse than her baseline. She denies any symptoms of chest discomfort, back discomfort, dizziness, nausea, vomiting or palpitations. She recently underwent successful TIRE BAGGER of the right SFA and is maintained on Plavix daily with the plan for TIRE BAGGER of the left SFA on the of this month. EKG on arrival reveals sinus tachycardia heart rate 106 poor R-wave progression no acute ST or T wave abnormalities noted. Chest x-ray reveals prominent interstitial pattern of increased density throughout the lungs symmetrically consistent with interstitial phase pulmonary edema. Laboratory data reviewed, WBC on admission 13.7 repeat today 11.6, hemoglobin 10.3, platelets 182, sodium 132, potassium on admission 3. 2 repeat today 4.4, creatinine on admission 0.7 poor repeat today 1.93, lactic acid on admission 5 most recent repeat today 2.4, magnesium on admission 1.1, troponin 0.634 and 0.798, and T proBNP 1540. Most recent echocardiogram obtained in the office in 2016 reveals preserved left ventricular systolic function with ejection fraction 55%. Most recent stress test performed in the office 2016 with an out Lexiscan stress test that was negative for reversible cardiac ischemia. At the time of my exam: CONSTITUTIONAL: Denies fever. Denies chills. EYES: Denies blurred vision. Denies vision changes. Denies eye pain. EARS, NOSE, MOUTH & THROAT: Denies headache. Denies sore throat. Denies ear pain. CARDIOVASCULAR: Denies chest pain. Complains of shortness of breath. Denies orthopnea. Denies PND. Denies palpitations. RESPIRATORY: Complains of cough. GASTROINTESTINAL: Denies abdominal pain. Denies diarrhea. Denies constipation. D enies nausea. Denies vomiting. MUSCULOSKELETAL: Denies myalgias. INTEGUMENTARY: Denies pruitis. Denies rash. NEUROLOGIC: Denies numbness. Denies tingling. Denies weakness. PSYCHIATRIC: Denies anxiety. Denies depression. ENDOCRINE: Denies fatigue. Denies weight change. Denies polydipsia. Denies polyu nelda. GENITOURINARY: Denies burning, hematuria or urgency with micturation. HEMATOLOGIC: Denies history of anemia. Denies bleeding. Blood pressure 106/57 heart rate 99 afebrile maintaining oxygen saturation on nasal cannula GENERAL: This is a 57-year-old female in mild respiratory distress at the time of my examination. Obese. HEENT: Head is atraumatic, normocephalic. Pupils are equal, round. Sclerae anicteric. Conjunctivae are clear. Mucous membranes of the mouth are moist. Neck is supple. There is no jugular venous distention. No carotid bruit is heard. LUNGS: Bibaslar rales, expiraotry wheezes, no rhonchi. No chest wall tenderness is noted on palpation or with deep breathing. HEART: Regular rate and rhythm without murmurs, rubs or gallops. S1 and S2 heard. ABDOMEN: Soft, nontender. Bowel sounds are heard. No organomegaly noted. EXTREMITIES: Significant bilateral lower extremity edema, erythema, sloughing and ulcerations. NEUROLOGIC: Patient is awake, alert and oriented x3. ASSESSMENT Influenza A Community-acquired pneumonia Leukocytosis Lactic acidosis Sepsis secondary to influenza pneumonia Hypokalemia, resolved Hypomagnesemia Abnormal troponins not indicative of an acute coronary syndrome Severe peripheral vascular disease causing critical limb ischemia status post TIRE BAGGER of the right SFA and plans for left SFA TIRE BAGGER later this month Hypertension Dyslipidemia Diabetes mellitus COPD Chronic nicotine dependence Morbid obesity, BMI 49 PLAN Obtain a repeat troponin value to assess for a trend. Obtain 2-D echocardiogram and Doppler study to assess cardiac structure and function. Abnormal troponin values are not indicative of an acute coronary syndrome and ab sence of anginal type symptoms and no EKG changes. Suspect the elevation is secondary to sepsis and influenza. Replace magnesium per protocol. Check NT proBNP. Continue atorvastatin 40 mg daily, Plavix 75 mg daily, amlodipine 5 mg daily and losartan 100 mg daily. We will continue to follow and make recommendations accordingly. Thank you kindly for this consultation. Nurse Practitioner note has been reviewed, I agree with a documented findings and plan of care. Patient was seen and examined. Past Medical History Past Medical History: COPD, Diabetes Mellitus, Eye Disorder, Fibromyalgia, Hyperlipidemia, Hypertension, Musculoskeletal Disorder, Neurologic Disorder, Osteoarthritis (OA), Pneumonia, Skin Disorder, Sleep Apnea/CPAP/BIPAP, Thyroid Disorder, Vascular Disorder Additional Past Medical History / Comment(s): IDDM type II, diabetic neuropathy hands and feet bilaterally, States she thinks she has Sleep Apnea., bilateral carpal tunnel, vertigo, slight KAKE , macular degeneration , hx. bronchitis, & pneumonia., sinus problems, Incontinent bowel and bladder., states scabs on upper arms. , SFA disease, wound on right foot- states no wt bearing- using wheel chair History of Any Multi-Drug Resistant Organisms: None Reported Past Surgical History: No Surgical Hx Reported Additional Past Surgical History / Comment(s): Colonoscopy, PICC line, Angiogram with Arthrectomy and Femoral stent (2017)rt.3rd & 4th toe amputation 2018 Past Anesthesia/Blood Transfusion Reactions: No Reported Reaction Past Psychological History: No Psychological Hx Reported Additional Psychological History / Comment(s): . Smoking Status: Former smoker Past Alcohol Use History: None Reported Additional Past Alcohol Use History / Comment(s): Pt started smoking in 1968, pt taking chantix, states she smokes about 3 cigarettes per day, used to smoke 2 ppd Past Drug Use History: None Reported - Past Family History Mother Family Medical History: Cancer Additional Family Medical History / Comment(s): Mother at 69yrs of age of lung cancer. Father Family Medical History: Cancer Additional Family Medical History / Comment(s): Father at 60 yrs of age of mesothelioma. Brother(s) Family Medical History: Coronary Artery Disease (CAD) Sister(s) Family Medical History: Hypertension Daughter(s) Family Medical History: No Reported History Son(s) Family Medical History: No Reported History Medications and Allergies Home Medications Medication Instructions Recorded Confirmed Type Clopidogrel [Plavix] 75 mg PO DAILY #90 tab 04/27/16 04/23/18 Rx Insulin Aspart [NovoLOG Flexpen] 16 units SQ AC-TID 10/19/17 04/23/18 History Insulin Detemir [Levemir Flextouch] 60 unit SQ BID 11/06/17 04/23/18 History Levothyroxine Sodium [Levoxyl] 50 mcg PO QAM 11/06/17 04/23/18 History Linagliptin [Tradjenta] 5 mg PO QAM 11/06/17 04/23/18 History amLODIPine [Norvasc] 5 mg PO QAM 11/06/17 04/23/18 History Atorvastatin [Lipitor] 40 mg PO HS 12/31/17 04/23/18 History Budesonide-Formot 160-4.5 Mcg 2 puff INHALATION BID 03/05/18 04/23/18 History [Symbicort 160-4.5 Mcg Inhaler] Losartan Potassium [Cozaar] 100 mg PO QAM 03/05/18 04/23/18 History Allergies Allergy/AdvReac Type Severity Reaction Status Date / Time No Known Allergies Allergy Verified 04/23/18 21:57 Physical Exam Vitals: Vital Signs Temp Pulse Pulse Resp BP BP Pulse Ox 04/24/18 07:00 98.8 F 99 20 106/57 92 L 04/24/18 06:41 92 L 04/24/18 06:35 99 04/24/18 06:26 97 85 L 04/24/18 06:23 98.4 F 96 20 103/65 90 L 04/24/18 04:00 20 04/24/18 01:30 98.0 F 95 20 91/58 92 L 04/24/18 00:05 102 H 16 106/61 94 L 04/23/18 23:47 95 04/23/18 23:34 91 04/23/18 23:20 100.2 F H 95 16 95/50 94 L 04/23/18 20:58 100.9 F H 110 H 18 135/82 90 L Intake and Output 04/23/18 04/24/18 04/24/18 22:59 06:59 14:59 Intake Total 430 Balance 430 Intake: Intake, IV Titration 250 Amount Sodium Chloride 0.9% 1, 250 000 ml @ 100 mls/hr IV . Q10H STA Rx#:[id number] Oral 180 Other: # Voids 1 # Bowel Movements 1 Weight 127.006 kg Results 04/24/18 07:49 04/24/18 07:49 Cardiac Enzymes 04/23/18 04/23/18 04/24/18 Range/Units 23:00 23:00 07:49 AST 17 (14-36) U/L Troponin I 0.634 H* 0.798 H* (0.000-0.034) ng/mL Coagulation 04/23/18 Range/Units 21:00 PT 9.5 (9.0-12.0) sec APTT 26.1 (22.0-30.0) sec CBC 04/23/18 04/24/18 Range/Units 21:00 07:49 WBC 13.7 H 11.6 H (3.8-10.6) k/uL RBC 3.96 3.45 L (3.80-5.40) m/uL Hgb 12.2 10.3 L (11.4-16.0) gm/dL Hct 37.4 33.8 L (34.0-46.0) % Plt Count 191 182 (150-450) k/uL Comprehensive Metabolic Panel 04/23/18 04/24/18 Range/Units 23:00 07:49 Sodium 136 L 132 L (137-145) mmol/L Potassium 3.2 L 4.4 (3.5-5.1) mmol/L Chloride 116 H 101 (98-107) mmol/L Carbon Dioxide 16 L 23 (22-30) mmol/L BUN 18 H 28 H (7-17) mg/dL Creatinine 0.74 1.93 H (0.52-1.04) mg/dL Glucose 308 H 454 H (74-99) mg/dL Calcium 5.6 L* 8.4 (8.4-10.2) mg/dL AST 17 (14-36) U/L ALT 21 (9-52) U/L Alkaline Phosphatase 64 (38-126) U/L Total Protein 3.8 L (6.3-8.2) g/dL Albumin 1.6 L (3.5-5.0) g/dL Current Medications Generic Name Dose Route Start Last Admin Trade Name Freq PRN Reason Stop Dose Admin Albuterol/Ipratropium 3 ml 04/24/18 08:00 04/24/18 06:25 Duoneb 0.5 Mg-3 Mg/3 Ml Soln INHALATION 3 ml RT-QID LESLEE Administration Enoxaparin Sodium 40 mg 04/24/18 09:00 04/24/18 07:38 Lovenox SQ 40 mg DAILY LESLEE Administration Ceftriaxone Sodium 1 gm/ 50 mls @ 100 mls/hr 04/24/18 22:39 Sodium Chloride IVPB Q24H LESLEE Vancomycin HCl 2,000 mg/ 500 mls @ 167 mls/hr 04/24/18 15:00 Sodium Chloride IVPB Q16H LESLEE Insulin Aspart 0 unit 04/24/18 07:30 04/24/18 07:38 Novolog SQ 12 unit AC-TID LESLEE Administration Protocol Miscellaneous Information 1 each 04/23/18 20:59 Pharmacy To Dose Iv Vancomycin MISCELLANE DIRECTED PRN Per Protocol Miscellaneous Information 1 each 04/23/18 22:38 Pneumonia Protocol Utilized PO ONCE PRN Per Protocol Intake and Output 04/23/18 04/24/18 04/24/18 22:59 06:59 14:59 Intake Total 430 Balance 430 Intake: Intake, IV Titration 250 Amount Sodium Chloride 0.9% 1, 250 000 ml @ 100 mls/hr IV . Q10H STA Rx#:[id number] Oral 180 Other: # Voids 1 # Bowel Movements 1 Weight 127.006 kg 04/24/18 07:49 04/24/18 07:49
[2018-04-24 14:04] LABS: Glucose,Whole Blood 418 mg/dL (75-99)
[2018-04-24] MEDS: INSULIN REGULAR 100 UNIT in SODIUM CHLORIDE 0.9% 100 ML IV SCH ×2 (14:13→17:39)
[2018-04-24] MEDS: MAGNESIUM SULFATE-D5W PMX 1 GM in DEXTROSE/WATER 1 100ML.BAG IVPB SCH ×3 (14:19→17:11)
[2018-04-24 14:40] LABS: Glucose,Whole Blood 393 mg/dL (75-99)
[2018-04-24] MEDS ORDERED: VANCOMYCIN 2,000 MG in SODIUM CHLORIDE 0.9% 500 ML 500 ML IVPB SCH (15:00)
[2018-04-24 15:07] LABS: Glucose,Whole Blood 395 mg/dL (75-99)
--- NOTE | 2018-04-24 15:14 | CONS ---
CONSULTATION PULMONARY CRITICAL CARE CONSULTATION: DATE OF SERVICE: 04/24/2018 This is a 57-year-old female who presents to the emergency room with complaints of weakness. In addition to weakness, she complains of mental status changes and shortness of breath. She also was noted to have a fever. She states that she has muscle aches and joint aches. Most of the joint aches and muscle aches are in her in her legs. The patient feels like she is very fatigued and weak at this time and also feels somewhat confused. In addition to all of this, she complains of shortness of breath and cough which is mostly dry. The patient did not take a temperature at home. She apparently was evaluated in the Emergency Room and was found to be positive for Influenza A and was admitted for that. In addition, she had a plasma lactic acid that was a bit elevated 2.7. There was some concerns of possible sepsis. Finally, chest x- ray suggested the possibility of pneumonia and that was another reason for admission to the hospital. The chest x-ray when viewed by myself shows evidence of what appears to be pulmonary edema. There also may be some consolidation in the left lower lobe causing some loss of the left hemidiaphragm. Again, this could be consistent with either pneumonia and/or heart failure. Currently, she is resting in bed. She feels very confused and disoriented. She was having some difficulty breathing and her saturations dropped. She was placed on high- flow oxygen and the hospitalist called me. We ended up transferring the patient to the ICU for further monitoring. We are going to place the patient on AIRVO. CURRENT MEDICATIONS: Include insulin, levothyroxine, Tradjenta, amlodipine, atorvastatin, Symbicort, losartan, Plavix, and a nebulizer machine with albuterol. ALLERGIES: Denied. PAST MEDICAL HISTORY: Includes COPD, diabetes mellitus, fibromyalgia, hyperlipidemia, hypertension, osteoarthritis, pneumonia, sleep apnea syndrome, and hypothyroidism. The patient also has sleep apnea syndrome, bilateral carpal tunnel syndrome, vertigo, deafness, and macular degeneration. In addition, she has stress urinary incontinence and some nonhealing poorly healing wound of the lower extremities which are being followed by [facility]. SURGICAL HISTORY: Includes colonoscopy, PICC line placement, angiogram with atherectomy and femoral stent, right and 4th toe amputation and some other minor procedures. SOCIAL HISTORY: Positive for ongoing tobacco use despite counseling. Family history is positive for lung cancer, mesothelioma, CAD, and hypertension. Occupational history is noncontributory. REVIEW OF SYSTEMS: CONSTITUTIONAL: Weakness and confusion. NEUROLOGIC: Confusion. HEENT: Negative. CARDIOVASCULAR: Negative. PULMONARY: Cough, shortness of breath, difficulty breathing, minimal phlegm production. Chest tightness. GI: Negative. : Negative. RHEUMATOLOGIC: Negative. IMMUNOLOGIC: Negative. ENDOCRINOLOGIC: Negative. DERMATOLOGIC: Negative. PHYSICAL EXAMINATION: Current vital signs are reviewed. Temperature is 98, heart rate is 99, respiratory rate 20, blood pressure 106/57, and saturation on 15 L high flow is 92%. She appears in no acute distress. All she does is appear to be somewhat lethargic and sleepy. She does arouse. She is appropriate. Her responses are appropriate. I do not see any evidence of acute respiratory distress such as audible wheezing, use of accessory muscles. No conversational dyspnea. HEENT: Examination is grossly unremarkable. Mucous membranes are dry. Nasal O2 in place. NECK: Supple. Full range of motion. No adenopathy or thyromegaly. Neck veins are flat. Cardiovascular examination reveals distant heart sounds. Heart rate about 100 beats per minute. S1, S2 normal. There is no murmur. Lungs reveal some bibasilar crackles. There is also some expiratory rhonchi. No wheezes. Breath sounds are diminished throughout. Abdomen is obese. Bowel sounds are heard. Extremities are intact. No to minimal edema. Skin without rash. Neurologic examination is difficult to assess given her current mental status, but she does move all 4 extremities well. Chest x-ray shows some pattern of possible fluid overload with cephalization, small effusions, as well as a retrocardiac density, possibly consistent with a consolidative pneumonia. LABS: Reviewed. White count 11.6, hemoglobin 7.3, hematocrit 33.8, platelet count is 182,000. PT, INR, PTT all normal. Sodium 132, potassium 4.4, chloride 101, CO2 is 23, anion gap is normal. BUN and creatinine were 28 and 1.9. Her lactic acid was 2.7 and is now down to 2.4. Repeat calcium is normal. Troponins were 0.634 and 0.798. Troponin and her N-terminal proBNP was 1540. Urine is shows 3+ protein, 4+ glucose, small blood and otherwise is negative. Medications are reviewed. Currently, she is on Tylenol, Lipitor, Symbicort, Rocephin, Plavix, doxycycline, Lovenox, insulin, saline IV, updrafts, Solu-Medrol, Tamiflu, and tramadol. ASSESSMENT: 1. Acute hypoxemic respiratory failure, likely multifactorial in part related to underlying fluid overload, possible myocardial ischemia, COPD exacerbation, influenza A, and possible pneumonia left lower lobe. 2. History of chronic obstructive pulmonary disease. 3. Diabetes mellitus. 4. History of fibromyalgia. 5. History of hyperlipidemia. 6. Benign essential hypertension. 7. Degenerative joint disease. 8. Previous episode of pneumonia. 9. History of sleep apnea syndrome. 10.Hypothyroidism. 11.Obesity. 12.Macular degeneration. 13.Stress urinary incontinence. 14.Multiple other medical problems and comorbidities. PLAN: The patient can be maintained on normal breathing medications including updrafts, Symbicort, and steroids. Tamiflu is a good idea. We can probably consolidate the antibiotics. Additional recommendations and suggestions are forthcoming. Prognosis is guarded. Will await cardiac input. Lasix will be appropriate as well. Make sure she is not getting too much IV fluid. AIRVO is fine at this point. Saturation should be maintained between 88% and 95%. Prognosis is very guarded. MMODL / IJN: [id number] /
--- NOTE | 2018-04-24 15:32 | US ---
EXAMINATION TYPE: US venous doppler duplex LE BI DATE OF EXAM: 04/24/2018 2:47 PM COMPARISON: Prior bilateral ultrasound October 20, 2017 CLINICAL HISTORY: Rule out DVT. large body habitus patient with edematous legs with COPD, CHF, Influe nza A, and legs are extremely tender SIDE PERFORMED: Bilateral TECHNIQUE: The lower extremity deep venous system is examined utilizing real time linear array sonog kalli with graded compression, doppler sonography and color-flow sonography. VESSELS IMAGED: External Iliac Vein (EIV) Common Femoral Vein Deep Femoral Vein Greater Saphenous Vein * Femoral Vein Popliteal Vein Small Saphenous Vein * Proximal Calf Veins (* superficial vessels) limited exam due to reasons stated above Right Leg: Unable to do all of my compression images, was able to obtain color flow and doppler, but cannot exclude a DVT Left Leg: Unable to do compression on left leg at all due to pain, color flow with doppler detected, cannot exclude DVT Grayscale, color doppler, spectral doppler imaging performed of the deep veins of the lower extremiti es. There is normal flow and vascular waveforms. IMPRESSION: Suboptimal study as detailed above without convincing evidence for acute DVT.
[2018-04-24] MEDS ORDERED: NALOXONE 0.4 MG/ML 1 ML VIAL IV PRN (15:34)
[2018-04-24] MEDS ORDERED: traMADol 50 MG TAB PO PRN (15:59)
[2018-04-24] MEDS ORDERED: methylPREDNISolone SOD SUCCI 125 MG/2 ML VIAL IV SCH (16:00)
[2018-04-24] MEDS: NITROGLYCERIN OINT 1 INCH/GM PACKET TOPICAL SCH (16:03)
[2018-04-24] MEDS: SODIUM CHLORIDE 0.9% 1,000 ML IV SCH (16:04)
[2018-04-24 16:09] LABS: Glucose,Whole Blood 365 mg/dL (75-99)
[2018-04-24 17:03] LABS: Glucose,Whole Blood 349 mg/dL (75-99)
[2018-04-24] MEDS: methylPREDNISolone SOD SUCCI 125 MG/2 ML VIAL IV SCH (17:13)
[2018-04-24 18:04] LABS: Glucose,Whole Blood 294 mg/dL (75-99)
[2018-04-24] MEDS ORDERED: FUROSEMIDE 10 MG/ML 4 ML VIAL IV STA (18:40)
[2018-04-24 19:07] LABS: Glucose,Whole Blood 252 mg/dL (75-99)
[2018-04-24] MEDS ORDERED: SODIUM CHLORIDE 0.65% NASAL SPRAY 44 ML BTL NASAL PRN (19:15)
[2018-04-24 20:03] LABS: Glucose,Whole Blood 226 mg/dL (75-99)
[2018-04-24] MEDS: FORMOTEROL FUMARATE 20 MCG/2 ML NEBU INHALATION SCH (20:25)
[2018-04-24] MEDS: BUDESONIDE 1 MG/2 ML NEBU INHALATION SCH (20:25)
[2018-04-24 21:03] LABS: Glucose,Whole Blood 226 mg/dL (75-99)
[2018-04-24 22:01] LABS: Glucose,Whole Blood 217 mg/dL (75-99)
[2018-04-24 23:00] LABS: Glucose,Whole Blood 196 mg/dL (75-99)
[2018-04-25 00:17] LABS: Glucose,Whole Blood 202 mg/dL (75-99)
[2018-04-25] MEDS: INSULIN REGULAR 100 UNIT in SODIUM CHLORIDE 0.9% 100 ML IV SCH ×6 (00:27→22:28)
[2018-04-25] MEDS: methylPREDNISolone SOD SUCCI 125 MG/2 ML VIAL IV SCH ×2 (00:27→06:49)
[2018-04-25] MEDS: NITROGLYCERIN OINT 1 INCH/GM PACKET TOPICAL SCH ×3 (00:28→17:03)
[2018-04-25 01:01] LABS: Glucose,Whole Blood 193 mg/dL (75-99)
[2018-04-25 02:04] LABS: Glucose,Whole Blood 200 mg/dL (75-99)
[2018-04-25] MEDS ORDERED: FUROSEMIDE 10 MG/ML 4 ML VIAL IV STA (02:31)
[2018-04-25 03:01] LABS: Glucose,Whole Blood 201 mg/dL (75-99)
[2018-04-25 05:12] LABS: Glucose,Whole Blood 194 mg/dL (75-99)
[2018-04-25 05:53] LABS: Basophils % (A) 0 %; Eosinophils % (A) 0 %; HCT 33.5 % (34.0-46.0); HGB 10.9 gm/dL (11.4-16.0); Hypochromasia Slight; Lymphocytes # (A) 0.6 k/uL (1.0-4.8); Lymphocytes % (A) 6 %; MCH 31.7 pg (25.0-35.0); MCHC 32.6 g/dL (31.0-37.0); MCV 97.1 fL (80.0-100.0); Mean Platelet Volume 7.6; Monocytes # (A) 0.2 k/uL (0-1.0); Monocytes % (A) 2 %; Neutrophils # (A) 9.6 k/uL (1.3-7.7); Neutrophils % (A) 91 %; Platelet Count 200 k/uL (150-450); RBC 3.45 m/uL (3.80-5.40); RDW 13.7 % (11.5-15.5); WBC 10.6 k/uL (3.8-10.6)
[2018-04-25 06:07] LABS: Calcium 8.7 mg/dL (8.4-10.2); Magnesium 2.2 mg/dL (1.6-2.3); Phosphorus 4.8 mg/dL (2.5-4.5); Potassium 5.1 mmol/L (3.5-5.1)
[2018-04-25 06:12] LABS: Vancomycin,Random 21.9 ug/mL
[2018-04-25 06:23] LABS: Glucose,Whole Blood 177 mg/dL (75-99)
--- NOTE | 2018-04-25 06:43 | XR ---
EXAMINATION TYPE: XR chest 1V DATE OF EXAM: 04/25/2018 CLINICAL HISTORY: Difficulty breathing and cough progress study. TECHNIQUE: Single AP portable upright view of the chest is obtained. COMPARISON: Chest x-ray from one day earlier and older studies. FINDINGS: Cardiomegaly is redemonstrated with atherosclerotic thoracic aorta. There is persistent ch ronic parenchymal change bilaterally with left basilar opacity silhouetting left hemidiaphragm. There is less prominent right basilar opacity partially silhouetting right hemidiaphragm. Osseous structur es are intact. IMPRESSION: Overall stable findings since most recent study, cardiomegaly with left greater than righ t bibasilar atelectasis and/or infiltrate.
[2018-04-25 06:54] LABS: Glucose,Whole Blood 178 mg/dL (75-99)
[2018-04-25 07:05] LABS: Glucose,Whole Blood 155 mg/dL (75-99)
[2018-04-25 07:10] LABS: Glucose,Whole Blood 168 mg/dL (75-99)
[2018-04-25 08:09] LABS: Glucose,Whole Blood 147 mg/dL (75-99)
--- NOTE | 2018-04-25 08:11 | P.PN ---
Progress Note - Text Progress Note Date: 04/25/18 This 57-year-old female with history of significant peripheral vascular disease status post FUR CLIPPER of the right SFA in March 2018, hypertension, dyslipidemia, diabetes mellitus, COPD, sleep apnea, who was admitted to the hospital with complaints of cough, congestion and generalized weakness. Patient denied any chest pain. She was found to be positive for influenza A. She is being treated for exacerbation of COPD with possible concomitant diastolic CHF. Echo Cardigan showed normal LV function. Her troponin values are abnormal and seemed to be increasing. However her creatinine has been going up. Her creatinine is more than 2 now. In view of lack of chest pains, EKG changes and normal echocardiogram, I feel that her troponin elevation is in proportion to the increase in creatinine. I do not think patient had ischemic event. Patient is feeling better. Has received Lasix and is diuresing fairly well. Nephrology is following. We'll continue current medical therapy. No invasive cardiac workup suggested at this time. Lab values showed hemoglobin of 10.9. White count is normal. Potassium is 5.1 and BUN and creatinine showed rales of 38/2.39 respectively. Chest x-ray showed stable findings with cardiomegaly with bibasilar ectatic ectasis/infiltrate. GENERAL EXAM: Patient is alert and oriented and doesn't appear to be in any acute distress HEENT: Normocephalic. Normal reaction of pupils, equal size, normal range of extraocular motion. No erythema or exudates in the throat. NECK: No masses, no nuchal rigidity. CHEST: No chest wall deformity. LUNGS: Diminished air exchange stress test at bases HEART: S1 and S2 normal. Distant heart sounds ABDOMEN: No hepatosplenomegaly, normal bowel sounds, no guarding or rigidity. SKIN: No rashes CENTRAL NERVOUS SYSTEM: No focal deficits. EXTREMITIES: Mild edema. Final impression: #1. Influenza A #2. Exacerbation of COPD #3. Rule out pneumonia. #4. Abnormal troponin values, most probably secondary to increasing creatinine #4. Peripheral vascular disease. Plan: No invasive cardiac workup at this time. Follow-up with nephrology regarding increasing creatinine and renal failure. We'll follow
[2018-04-25] MEDS: ENOXAPARIN 30 MG/0.3 ML SYRINGE SQ SCH (08:22)
[2018-04-25] MEDS: OSELTAMIVIR 60 MG/10 ML ORAL SYRINGE PO SCH (08:22)
[2018-04-25] MEDS ORDERED: VANCOMYCIN IV PER PHARMACY 1 EACH MISC MISCELLANE PRN (08:22)
[2018-04-25] MEDS: AZITHROMYCIN 500 MG TAB PO SCH (08:23)
[2018-04-25] MEDS: CLOPIDOGREL 75 MG TAB PO SCH (08:24)
[2018-04-25] MEDS: ATORVASTATIN 40 MG TAB PO SCH (08:24)
[2018-04-25] MEDS: FORMOTEROL FUMARATE 20 MCG/2 ML NEBU INHALATION SCH ×2 (08:45→21:14)
[2018-04-25] MEDS: IPRATROPIUM-ALBUTEROL 3 ML NEB INHALATION SCH ×4 (08:45→21:14)
[2018-04-25] MEDS: BUDESONIDE 1 MG/2 ML NEBU INHALATION SCH ×2 (08:45→21:14)
[2018-04-25] MEDS ORDERED: DOXYCYCLINE 100 MG in SODIUM CHLORIDE 0.9% 100 ML IVPB SCH (09:00)
[2018-04-25] MEDS ORDERED: INSULIN DETEMIR (LEVEMIR) 100 UNIT/ML SYR SQ SCH (09:00)
[2018-04-25 09:11] LABS: Glucose,Whole Blood 171 mg/dL (75-99)
[2018-04-25 10:11] LABS: Glucose,Whole Blood 180 mg/dL (75-99)
--- NOTE | 2018-04-25 10:12 | P.PN ---
Subjective Progress Note Date: 04/25/18 Principal diagnosis: Hypoxia and respiratory failure, multifactorial related to acute exacerbation of chronic obstructive pulmonary disease, fluid volume overload with possible hany cardial ischemia, influenza a and lower lobe pneumonia The patient is seen today in follow-up in the intensive care unit. She is awake and alert in no acute distress. Currently sitting up in a chair at the bedside. She is breathing quite a bit better today as compared to yesterday. She remains on the AirVo high flow oxygen device at 60 L and 60% FiO2. Maintaining O2 saturations in the mid 90s. Today's chest x-ray reveals stable findings compared to previous. There is cardiomegaly with left greater than right basilar atelectasis/infiltrates. Blood culture reveals no growth to date. Ur ine culture pending. White count 10.6. Hemoglobin 10.9. Creatinine 2.39. Peak troponin 2.230. ProBNP 1540. She remains on DuoNeb inhalations, Pulmicort and Perforomist inhalations, IV Solu-Medrol. She is also on vancomycin, ceftriaxone and azithromycin. She is currently on Lasix 40 mg IV daily. She is requiring insulin drip currently at 16 units per hour. She remains on Tamiflu. Objective - Vital Signs Vital signs: Vital Signs Temp 98.3 F 04/25/18 08:00 Pulse 93 04/25/18 09:13 Resp 16 04/25/18 09:00 BP 132/86 04/25/18 09:00 Pulse Ox 94 L 04/25/18 09:00 Intake & Output 04/24/18 04/25/18 04/25/18 18:59 06:59 18:59 Intake Total 720.849 554.324 43.466 Output Total 415 595 90 Balance 305.849 -40.676 -46.534 Weight 141.3 kg Intake: IV 380 360 20 Magnesium Sulfate-D5w Pmx 300 1 gm In Dextrose/Water 1 100ml.bag @ 100 mls/hr IVPB Q1H [facility] Rx#: [id number] Sodium Chloride 0.9% 1, 80 260 20 000 ml @ 20 mls/hr IV . Q24H [facility] Rx#:[id number] cefTRIAXone 1 gm In 100 Sodium Chloride 0.9% 50 ml @ 100 mls/hr IVPB Q24H [facility] Rx#:[id number] Intake, IV Titration 100.849 194.324 23.466 Amount Insulin Regular 100 unit 100.849 194.324 23.466 In Sodium Chloride 0.9% 100 ml @ Per Protocol IV .Q0M [facility] Rx#:[id number] Oral 240 Output: Urine 415 595 90 Other: Voiding Method Indwelling Catheter Indwelling Catheter Indwelling Catheter - Exam GENERAL EXAM: Morbidly obese. Alert, active, comfortable in no apparent distress. On the AirVo high flow. HEAD: Normocephalic. EYES: Normal reaction of pupils, equal size. NOSE: Clear with pink turbinates. THROAT: Crowding the posterior pharynx. No erythema or exudates. NECK: Short. No masses, no JVD. CHEST: No chest wall deformity. LUNGS: Equal air entry with rales in the bilateral posterior bases, left greater than right, diminished. CVS: S1 and S2 normal with no audible murmur, regular rhythm. ABDOMEN: No hepatosplenomegaly, normal bowel sounds, no guarding or rigidity. SPINE: No scoliosis or deformity SKIN: No rashes CENTRAL NERVOUS SYSTEM: No focal deficits, tone is normal in all 4 extremities. EXTREMITIES: There is trace peripheral edema. No clubbing, no cyanosis. Peripheral pulses are intact. - Labs CBC & Chem 7: 04/25/18 05:31 04/25/18 05:31 Labs: Abnormal Lab Results - Last 24 Hours (Table) 04/24/18 04/24/18 04/24/18 Range/Units 11:57 12:05 13:59 RBC (3.80-5.40) m/uL Hgb (11.4-16.0) gm/dL Hct (34.0-46.0) % Neutrophils # (1.3-7.7) k/uL Lymphocytes # (1.0-4.8) k/uL Sodium (137-145) mmol/L Carbon Dioxide (22-30) mmol/L BUN (7-17) mg/dL Creatinine (0.52-1.04) mg/dL Glucose (74-99) mg/dL POC Glucose (mg/dL) 428 H (75-99) mg/dL Plasma Lactic Acid Madhu 2.4 H* (0.7-2.0) mmol/L Phosphorus (2.5-4.5) mg/dL Troponin I 1.320 H* (0.000-0.034) ng/mL 04/24/18 04/24/18 04/24/18 Range/Units 14:02 14:37 15:04 RBC (3.80-5.40) m/uL Hgb (11.4-16.0) gm/dL Hct (34.0-46.0) % Neutrophils # (1.3-7.7) k/uL Lymphocytes # (1.0-4.8) k/uL Sodium (137-145) mmol/L Carbon Dioxide (22-30) mmol/L BUN (7-17) mg/dL Creatinine (0.52-1.04) mg/dL Glucose (74-99) mg/dL POC Glucose (mg/dL) 418 H 393 H 395 H (75-99) mg/dL Plasma Lactic Acid Madhu (0.7-2.0) mmol/L Phosphorus (2.5-4.5) mg/dL Troponin I (0.000-0.034) ng/mL 04/24/18 04/24/18 04/24/18 Range/Units 16:07 17:01 17:56 RBC (3.80-5.40) m/uL Hgb (11.4-16.0) gm/dL Hct (34.0-46.0) % Neutrophils # (1.3-7.7) k/uL Lymphocytes # (1.0-4.8) k/uL Sodium (137-145) mmol/L Carbon Dioxide (22-30) mmol/L BUN (7-17) mg/dL Creatinine (0.52-1.04) mg/dL Glucose (74-99) mg/dL POC Glucose (mg/dL) 365 H 349 H 294 H (75-99) mg/dL Plasma Lactic Acid Madhu (0.7-2.0) mmol/L Phosphorus (2.5-4.5) mg/dL Troponin I (0.000-0.034) ng/mL 04/24/18 04/24/18 04/24/18 Range/Units 19:05 20:01 21:01 RBC (3.80-5.40) m/uL Hgb (11.4-16.0) gm/dL Hct (34.0-46.0) % Neutrophils # (1.3-7.7) k/uL Lymphocytes # (1.0-4.8) k/uL Sodium (137-145) mmol/L Carbon Dioxide (22-30) mmol/L BUN (7-17) mg/dL Creatinine (0.52-1.04) mg/dL Glucose (74-99) mg/dL POC Glucose (mg/dL) 252 H 226 H 226 H (75-99) mg/dL Plasma Lactic Acid Madhu (0.7-2.0) mmol/L Phosphorus (2.5-4.5) mg/dL Troponin I (0.000-0.034) ng/mL 04/24/18 04/24/18 04/24/18 Range/Units 22:00 22:11 22:58 RBC (3.80-5.40) m/uL Hgb (11.4-16.0) gm/dL Hct (34.0-46.0) % Neutrophils # (1.3-7.7) k/uL Lymphocytes # (1.0-4.8) k/uL Sodium (137-145) mmol/L Carbon Dioxide (22-30) mmol/L BUN (7-17) mg/dL Creatinine (0.52-1.04) mg/dL Glucose (74-99) mg/dL POC Glucose (mg/dL) 217 H 196 H (75-99) mg/dL Plasma Lactic Acid Madhu (0.7-2.0) mmol/L Phosphorus (2.5-4.5) mg/dL Troponin I 2.230 H* (0.000-0.034) ng/mL 04/25/18 04/25/18 04/25/18 Range/Units 00:15 01:00 02:03 RBC (3.80-5.40) m/uL Hgb (11.4-16.0) gm/dL Hct (34.0-46.0) % Neutrophils # (1.3-7.7) k/uL Lymphocytes # (1.0-4.8) k/uL Sodium (137-145) mmol/L Carbon Dioxide (22-30) mmol/L BUN (7-17) mg/dL Creatinine (0.52-1.04) mg/dL Glucose (74-99) mg/dL POC Glucose (mg/dL) 202 H 193 H 200 H (75-99) mg/dL Plasma Lactic Acid Madhu (0.7-2.0) mmol/L Phosphorus (2.5-4.5) mg/dL Troponin I (0.000-0.034) ng/mL 04/25/18 04/25/18 04/25/18 Range/Units 02:59 05:10 05:31 RBC 3.45 L (3.80-5.40) m/uL Hgb 10.9 L (11.4-16.0) gm/dL Hct 33.5 L (34.0-46.0) % Neutrophils # 9.6 H (1.3-7.7) k/uL Lymphocytes # 0.6 L (1.0-4.8) k/uL Sodium (137-145) mmol/L Carbon Dioxide (22-30) mmol/L BUN (7-17) mg/dL Creatinine (0.52-1.04) mg/dL Glucose (74-99) mg/dL POC Glucose (mg/dL) 201 H 194 H (75-99) mg/dL Plasma Lactic Acid Madhu (0.7-2.0) mmol/L Phosphorus (2.5-4.5) mg/dL Troponin I (0.000-0.034) ng/mL 04/25/18 04/25/18 04/25/18 Range/Units 05:31 06:22 06:53 RBC (3.80-5.40) m/uL Hgb (11.4-16.0) gm/dL Hct (34.0-46.0) % Neutrophils # (1.3-7.7) k/uL Lymphocytes # (1.0-4.8) k/uL Sodium 132 L (137-145) mmol/L Carbon Dioxide 19 L (22-30) mmol/L BUN 38 H (7-17) mg/dL Creatinine 2.39 H (0.52-1.04) mg/dL Glucose 197 H (74-99) mg/dL POC Glucose (mg/dL) 177 H 178 H (75-99) mg/dL Plasma Lactic Acid Madhu (0.7-2.0) mmol/L Phosphorus 4.8 H (2.5-4.5) mg/dL Troponin I (0.000-0.034) ng/mL 04/25/18 04/25/1804/25/19 Range/Units 07:04 07:09 08:08 RBC (3.80-5.40) m/uL Hgb (11.4-16.0) gm/dL Hct (34.0-46.0) % Neutrophils # (1.3-7.7) k/uL Lymphocytes # (1.0-4.8) k/uL Sodium (137-145) mmol/L Carbon Dioxide (22-30) mmol/L BUN (7-17) mg/dL Creatinine (0.52-1.04) mg/dL Glucose (74-99) mg/dL POC Glucose (mg/dL) 155 H 168 H 147 H (75-99) mg/dL Plasma Lactic Acid Madhu (0.7-2.0) mmol/L Phosphorus (2.5-4.5) mg/dL Troponin I (0.000-0.034) ng/mL 04/25/18 Range/Units 09:10 RBC (3.80-5.40) m/uL Hgb (11.4-16.0) gm/dL Hct (34.0-46.0) % Neutrophils # (1.3-7.7) k/uL Lymphocytes # (1.0-4.8) k/uL Sodium (137-145) mmol/L Carbon Dioxide (22-30) mmol/L BUN (7-17) mg/dL Creatinine (0.52-1.04) mg/dL Glucose (74-99) mg/dL POC Glucose (mg/dL) 171 H (75-99) mg/dL Plasma Lactic Acid Madhu (0.7-2.0) mmol/L Phosphorus (2.5-4.5) mg/dL Troponin I (0.000-0.034) ng/mL Microbiology - Last 24 Hours (Table) 04/23/18 21:11 Blood Culture - Preliminary Blood No Growth after 24 hours 04/23/18 22:48 Urine Culture - Preliminary Urine,Catheterized Assessment and Plan Assessment: Impression: #1 Acute hypoxemic respiratory failure secondary to influenza A infection with an acute exacerbation of chronic obstructive pulmonary disease and acute exacerbation of diastolic congestive heart failure. Troponin leak felt to be secondary to acute renal failure. #2 History of chronic obstructive pulmonary disease. #3 Morbid obesity. #4 Diabetes mellitus with steroid-induced hyperglycemia. #5 Fibromyalgia. #6 Hyperlipidemia. #7 Hypertension. #8 Degenerative joint disease. #9 History of obstructive sleep apnea syndrome. #10 Hypothyroidism. #11 Macular degeneration. #12 Stress urinary incontinence. 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 Plan: The patient was seen and evaluated by Dr. Huang. Chest x-ray and labs were reviewed. She is quite hyperglycemic. We will discontinue the IV steroids that she is not currently bronchospastic or wheezing. We'll also discontinue the vancomycin and continue ceftriaxone and azithromycin. Tamiflu continues as well. Continue bronchodilators. We will continue to decrease the FiO2 as tolerated. Nephrology consulted regarding the acute renal failure. We will continue to monitor her here in the intensive care unit another 24 hours. We'll continue to follow and make further recommendations based on her clinical status. I, the cosigning physician, performed a history & physical examination of the patient. Lungs sounds with crackles in the bilateral posterior bases. Maintaining good O2 saturations in the 90s on 60 L and 60% FiO2 per AirVo. I discussed the assessment and plan of care with my nurse practitioner, Tootie Jaar. I attest to the above note as dictated by her.
[2018-04-25 11:01] LABS: Glucose,Whole Blood 180 mg/dL (75-99)
[2018-04-25] MEDS: FUROSEMIDE 10 MG/ML 4 ML VIAL IV SCH (11:37)
--- NOTE | 2018-04-25 12:06 | P.PN ---
Subjective This is a pleasant 67 years old female with past medical history of COPD, diabetes mellitus, fibromyalgia, hyperlipidemia, hypertension, arthritis, sleep apnea on CPAP/BiPAP, recent history of diabetic right foot ulcer and osteomyelitis, hypothyroidism, diabetic neuropathy of hands and feet, , history of pneumonia, bowel and urinary incontinence. Her PCP is Dr. Mcknight. Patient states she was feeling not good for 2 days which she got worse yesterday so she doesn't come to the hospital without specification. Patient complaining from generalized myalgia and arthralgia, she has some dry cough but no flame. With the emergency room patient states that she started having dyspnea. However she denies chest pain or discomfort. No abdominal pain. No change in urine or bowel habits. On admission she had fever of 100.9. Her oxygen requirement increased from 5 L/m 15 L/m. Blood pressure 106/57. She had mild leukocytosis of 11.6 K, hemoglobin 10.3. Platelets 182. Sodium 132. Creatinine increased 1.9 compared to baseline of 0.7. Sugar is elevated at 454. Lactic acid was 5.0, down to 4.1. Calcium 8.4. Troponin is elevated at 0.6 and 0.79. ProBNP is 1540. Influenza A is detected.. Chest x-ray: Pulmonary congestion with possible pulmonary edema and possible retrocardiac and lower lobe infiltrate. EKG: Sinus tachycardia at 106, no significant ST-T changes. QTC 4:30 In the emergency room patient received ibuprofen, fluids more than 2 L and symmetrical normal saline and the fluid per hour. She got ceftriaxone and vancomycin. And Zithromax. She was started on Lovenox, Plavix and insulin. 04/25/2018 Today patient is more awake and alert, she feels more comfortable visit drowsy less distinct. She was started on airflow in the ICU, she is currently on 60 L which is equivalent to 50%. Patient denies chest pain, no dry cough, however she still have dyspnea although it's improving. No headache. No change in urine or bowel habits. She still have muscle spasms and pain especially in her lower legs. Doppler ultrasound failed to show DVT. Her myalgia and arthralgia also bothering her but they are improving. Vitals stable. Leukocytosis is improving. Creatinine trending up from 1.9 up to 2.3. Nephrology team has been consulted. Sugar is controlled. Lactic acid is 2-2.4, repeat was pending. Review of systems CONSTITUTIONAL: No fever, no malaise, no fatigue. HEENT: No recent visual problems or hearing problems. Denied any sore throat. CARDIOVASCULAR: No orthopnea, PND, no palpitations, no syncope. PULMONARY: No shortness of breath, no cough, no hemoptysis. GASTROINTESTINAL: No diarrhea, no nausea, no vomiting, no abdominal pain. Normoactive bowel sounds. NEUROLOGICAL: No headaches, no weakness, no numbness. HEMATOLOGICAL: Denies any bleeding or petechiae. GENITOURINARY: Denies any burning micturition, frequency, or urgency. MUSCULOSKELETAL/RHEUMATOLOGICAL: Denies any joint pain, swelling, or any muscle pain. ENDOCRINE: Denies any polyuria or polydipsia. Medication: Albuterol, Lipitor, Zithromax, budesonide, soft Carl, Plavix, Lovenox, performance, Lasix, Levemir, naloxone, nitroglycerin, Tamiflu. Objective - Vital Signs Vital signs: Vital Signs Temp 98.3 F 04/25/18 08:00 Pulse 89 04/25/18 11:00 Resp 29 H 04/25/18 11:00 BP 120/82 04/25/18 11:00 Pulse Ox 92 L 04/25/18 11:00 Intake & Output 04/24/18 04/25/18 04/25/18 18:59 06:59 18:59 Intake Total 720.849 554.324 121.541 Output Total 415 595 200 Balance 305.849 -40.676 -78.459 Weight 141.3 kg Intake: IV 380 360 40 Magnesium Sulfate-D5w Pmx 300 1 gm In Dextrose/Water 1 100ml.bag @ 100 mls/hr IVPB Q1H [facility] Rx#: [id number] Sodium Chloride 0.9% 1, 80 260 40 000 ml @ 20 mls/hr IV . Q24H [facility] Rx#:[id number] cefTRIAXone 1 gm In 100 Sodium Chloride 0.9% 50 ml @ 100 mls/hr IVPB Q24H [facility] Rx#:[id number] Intake, IV Titration 100.849 194.324 81.541 Amount Insulin Regular 100 unit 100.849 194.324 81.541 In Sodium Chloride 0.9% 100 ml @ Per Protocol IV .Q0M [facility] Rx#:[id number] Oral 240 Output: Urine 415 595 200 Other: Voiding Method Indwelling Catheter Indwelling Catheter Indwelling Catheter - Exam GENERAL: The patient is alert and oriented x3, not in any acute distress. Well developed, well nourished. HEENT: Pupils are round and equally reacting to light. EOMI. No scleral icterus. No conjunctival pallor. Normocephalic, atraumatic. No pharyngeal erythema. No thyromegaly. CARDIOVASCULAR: S1 and S2 present. No murmurs, rubs, or gallops. PULMONARY: Chest is clear to auscultation, no wheezing or crackles. ABDOMEN: Soft, nontender, nondistended, normoactive bowel sounds. No palpable organomegaly. MUSCULOSKELETAL: No joint swelling or deformity. -EXTREMITIES: No cyanosis, clubbing, . Bilateral pedal edema. NEUROLOGICAL: Gross neurological examination did not reveal any focal deficits. SKIN: No rashes. - Labs CBC & Chem 7: 04/25/18 05:31 04/25/18 05:31 Labs: Abnormal Lab Results - Last 24 Hours (Table) 04/24/18 04/24/18 04/24/18 Range/Units 11:57 12:05 13:59 RBC (3.80-5.40) m/uL Hgb (11.4-16.0) gm/dL Hct (34.0-46.0) % Neutrophils # (1.3-7.7) k/uL Lymphocytes # (1.0-4.8) k/uL Sodium (137-145) mmol/L Carbon Dioxide (22-30) mmol/L BUN (7-17) mg/dL Creatinine (0.52-1.04) mg/dL Glucose (74-99) mg/dL POC Glucose (mg/dL) 428 H (75-99) mg/dL Plasma Lactic Acid Madhu 2.4 H* (0.7-2.0) mmol/L Phosphorus (2.5-4.5) mg/dL Troponin I 1.320 H* (0.000-0.034) ng/mL 04/24/18 04/24/18 04/24/18 Range/Units 14:02 14:37 15:04 RBC (3.80-5.40) m/uL Hgb (11.4-16.0) gm/dL Hct (34.0-46.0) % Neutrophils # (1.3-7.7) k/uL Lymphocytes # (1.0-4.8) k/uL Sodium (137-145) mmol/L Carbon Dioxide (22-30) mmol/L BUN (7-17) mg/dL Creatinine (0.52-1.04) mg/dL Glucose (74-99) mg/dL POC Glucose (mg/dL) 418 H 393 H 395 H (75-99) mg/dL Plasma Lactic Acid Madhu (0.7-2.0) mmol/L Phosphorus (2.5-4.5) mg/dL Troponin I (0.000-0.034) ng/mL 04/24/18 04/24/18 04/24/18 Range/Units 16:07 17:01 17:56 RBC (3.80-5.40) m/uL Hgb (11.4-16.0) gm/dL Hct (34.0-46.0) % Neutrophils # (1.3-7.7) k/uL Lymphocytes # (1.0-4.8) k/uL Sodium (137-145) mmol/L Carbon Dioxide (22-30) mmol/L BUN (7-17) mg/dL Creatinine (0.52-1.04) mg/dL Glucose (74-99) mg/dL POC Glucose (mg/dL) 365 H 349 H 294 H (75-99) mg/dL Plasma Lactic Acid Madhu (0.7-2.0) mmol/L Phosphorus (2.5-4.5) mg/dL Troponin I (0.000-0.034) ng/mL 04/24/18 04/24/18 04/24/18 Range/Units 19:05 20:01 21:01 RBC (3.80-5.40) m/uL Hgb (11.4-16.0) gm/dL Hct (34.0-46.0) % Neutrophils # (1.3-7.7) k/uL Lymphocytes # (1.0-4.8) k/uL Sodium (137-145) mmol/L Carbon Dioxide (22-30) mmol/L BUN (7-17) mg/dL Creatinine (0.52-1.04) mg/dL Glucose (74-99) mg/dL POC Glucose (mg/dL) 252 H 226 H 226 H (75-99) mg/dL Plasma Lactic Acid Madhu (0.7-2.0) mmol/L Phosphorus (2.5-4.5) mg/dL Troponin I (0.000-0.034) ng/mL 04/24/18 04/24/18 04/24/18 Range/Units 22:00 22:11 22:58 RBC (3.80-5.40) m/uL Hgb (11.4-16.0) gm/dL Hct (34.0-46.0) % Neutrophils # (1.3-7.7) k/uL Lymphocytes # (1.0-4.8) k/uL Sodium (137-145) mmol/L Carbon Dioxide (22-30) mmol/L BUN (7-17) mg/dL Creatinine (0.52-1.04) mg/dL Glucose (74-99) mg/dL POC Glucose (mg/dL) 217 H 196 H (75-99) mg/dL Plasma Lactic Acid Madhu (0.7-2.0) mmol/L Phosphorus (2.5-4.5) mg/dL Troponin I 2.230 H* (0.000-0.034) ng/mL 04/25/18 04/25/18 04/25/18 Range/Units 00:15 01:00 02:03 RBC (3.80-5.40) m/uL Hgb (11.4-16.0) gm/dL Hct (34.0-46.0) % Neutrophils # (1.3-7.7) k/uL Lymphocytes # (1.0-4.8) k/uL Sodium (137-145) mmol/L Carbon Dioxide (22-30) mmol/L BUN (7-17) mg/dL Creatinine (0.52-1.04) mg/dL Glucose (74-99) mg/dL POC Glucose (mg/dL) 202 H 193 H 200 H (75-99) mg/dL Plasma Lactic Acid Madhu (0.7-2.0) mmol/L Phosphorus (2.5-4.5) mg/dL Troponin I (0.000-0.034) ng/mL 04/25/18 04/25/18 04/25/18 Range/Units 02:59 05:10 05:31 RBC 3.45 L (3.80-5.40) m/uL Hgb 10.9 L (11.4-16.0) gm/dL Hct 33.5 L (34.0-46.0) % Neutrophils # 9.6 H (1.3-7.7) k/uL Lymphocytes # 0.6 L (1.0-4.8) k/uL Sodium (137-145) mmol/L Carbon Dioxide (22-30) mmol/L BUN (7-17) mg/dL Creatinine (0.52-1.04) mg/dL Glucose (74-99) mg/dL POC Glucose (mg/dL) 201 H 194 H (75-99) mg/dL Plasma Lactic Acid Madhu (0.7-2.0) mmol/L Phosphorus (2.5-4.5) mg/dL Troponin I (0.000-0.034) ng/mL 04/25/18 04/25/18 04/25/18 Range/Units 05:31 06:22 06:53 RBC (3.80-5.40) m/uL Hgb (11.4-16.0) gm/dL Hct (34.0-46.0) % Neutrophils # (1.3-7.7) k/uL Lymphocytes # (1.0-4.8) k/uL Sodium 132 L (137-145) mmol/L Carbon Dioxide 19 L (22-30) mmol/L BUN 38 H (7-17) mg/dL Creatinine 2.39 H (0.52-1.04) mg/dL Glucose 197 H (74-99) mg/dL POC Glucose (mg/dL) 177 H 178 H (75-99) mg/dL Plasma Lactic Acid Madhu (0.7-2.0) mmol/L Phosphorus 4.8 H (2.5-4.5) mg/dL Troponin I (0.000-0.034) ng/mL 04/25/18 04/25/18 04/25/18 Range/Units 07:04 07:09 08:08 RBC (3.80-5.40) m/uL Hgb (11.4-16.0) gm/dL Hct (34.0-46.0) % Neutrophils # (1.3-7.7) k/uL Lymphocytes # (1.0-4.8) k/uL Sodium (137-145) mmol/L Carbon Dioxide (22-30) mmol/L BUN (7-17) mg/dL Creatinine (0.52-1.04) mg/dL Glucose (74-99) mg/dL POC Glucose (mg/dL) 155 H 168 H 147 H (75-99) mg/dL Plasma Lactic Acid Madhu (0.7-2.0) mmol/L Phosphorus (2.5-4.5) mg/dL Troponin I (0.000-0.034) ng/mL 04/25/18 04/25/18 04/25/18 Range/Units 09:10 10:10 11:00 RBC (3.80-5.40) m/uL Hgb (11.4-16.0) gm/dL Hct (34.0-46.0) % Neutrophils # (1.3-7.7) k/uL Lymphocytes # (1.0-4.8) k/uL Sodium (137-145) mmol/L Carbon Dioxide (22-30) mmol/L BUN (7-17) mg/dL Creatinine (0.52-1.04) mg/dL Glucose (74-99) mg/dL POC Glucose (mg/dL) 171 H 180 H 180 H (75-99) mg/dL Plasma Lactic Acid Madhu (0.7-2.0) mmol/L Phosphorus (2.5-4.5) mg/dL Troponin I (0.000-0.034) ng/mL Microbiology - Last 24 Hours (Table) 04/23/18 21:11 Blood Culture - Preliminary Blood No Growth after 24 hours 04/23/18 22:48 Urine Culture - Preliminary Urine,Catheterized Assessment and Plan Assessment: Acute pulmonary edema/congestion Elevated troponins, suspicious for non-STEMI is community acquired acute pneumonia Acute influenza a infection with possible pneumonia Systemic inflammatory response with fever and tachycardia Sepsis secondary to influenza pneumonia with possible superimposed bacterial infection Acute hypoxic respiratory failure secondary to above Acute kidney injury High Lactic acid Metabolic versus respiratory and toxic encephalopathy. mild History of COPD, and acute exacerbation. recent history of diabetic right foot ulcer and osteomyelitis,not on antibiotic. she follows up with vascular surgery and wound clinic. Diabetes mellitus Hypertension Hyperlipidemia Hypothyroidism History of sleep apnea Morbid obesity Plan: this is a pleasant 57 this old female who presents with acute influenza pneumonia and acute CHF, and elevated troponins. We'll continue with oxygen therapy, antibiotic and to start Tamiflu. Patient will be transferred to the intensive care unit, case was discussed with Dr. Huang was on consult for pulmonary/critical care. Cardiology consult. Nephrology consult. Insulin therapy. Labs and medication were reviewed.. Continue same treatment. Continue with symptomatic treatment. Resume home medication. Monitor lytes and vitals. DVT and GI prophylaxis. Further recommendations of the clinical course of the patient DVT prophylaxis: sc lovenox GI Prophylaxis: Pepcid Prognosis is guarded and critical
[2018-04-25 12:25] LABS: Glucose,Whole Blood 251 mg/dL (75-99)
[2018-04-25 13:17] LABS: Glucose,Whole Blood 255 mg/dL (75-99)
[2018-04-25 14:04] LABS: Glucose,Whole Blood 233 mg/dL (75-99)
[2018-04-25 15:26] LABS: Glucose,Whole Blood 286 mg/dL (75-99)
[2018-04-25 16:02] LABS: Hemoglobin A1C 12.9 % (4.0-6.0)
[2018-04-25 16:08] LABS: Glucose,Whole Blood 249 mg/dL (75-99)
[2018-04-25] MEDS ORDERED: INSULIN DETEMIR (LEVEMIR) 100 UNIT/ML SYR SQ ONE (16:45)
[2018-04-25 17:07] LABS: Glucose,Whole Blood 249 mg/dL (75-99)
[2018-04-25] MEDS: SODIUM CHLORIDE 0.9% 1,000 ML IV SCH (17:08)
--- NOTE | 2018-04-25 17:33 | US ---
EXAMINATION TYPE: US kidneys/renal and bladder DATE OF EXAM: 04/25/2018 COMPARISON: NONE CLINICAL HISTORY: elevated creatinine. abn labs, no pain, dean EXAM MEASUREMENTS: Right Kidney: 11.7 x 5.7 x 5.8 cm Left Kidney: 12.9 x 5.6 x 7.0 cm Limited exam due to patient body habitus Right Kidney: Limited visualization. Possible upper pole lesion vs lobular cortical tissue, isoechoic to cortical region. Upper pole - 2.8 x 2.3 x 2.3 cm Left Kidney: Limited visualization, portions seen appear wnl Bladder: Patient has dean catheter, unable to visualize bladder. Bladder area pictures taken. Bilateral Jets not seen due to dean IMPRESSION: 2.2 cm cortical cyst upper pole right kidney. No hydronephrosis. No renal atrophy seen.
--- NOTE | 2018-04-25 17:42 | CONS ---
CONSULTATION REASON FOR CONSULT: Renal failure. HISTORY OF PRESENT ILLNESS: The patient is a 57-year-old female who was admitted with complaints of shortness of breath. Patient was also feeling weak and had a lot of muscle aches. She did test positive for influenza A. Serum creatinine was 0.74 mg/dL on initial admission. It has gone up to 2.39 now. Blood pressure was low, with systolic as low as 78 mmHg yesterday. Patient also received Motrin in the ER. She got a dose of vancomycin as well. Patient is currently in the ICU. She is not on any pressors. Urine output is about 50 to 60 mL/hour. She had dropped down about 10 to 15 mL/hour earlier this morning, but it has picked up with the Lasix. PAST MEDICAL HISTORY: Significant for: 1. Type 2 diabetes. 2. COPD. 3. Fibromyalgia. 4. Hyperlipidemia. 5. Obstructive sleep apnea. 6. History of pneumonia. 7. Diabetic neuropathy. 8. Bronchitis. 9. Bilateral carpal tunnel syndrome. 10.Vertigo. 11.Macular degeneration. PAST SURGICAL HISTORY: 1. Colonoscopy. 2. PICC line placement. 3. Angiogram. 4. Femoral artery stent. 5. Third and fourth toe amputation on the right foot. SOCIAL HISTORY: Patient is a former smoker. No history of drug abuse or alcohol abuse. MEDICATIONS: Medications prior to admission included: 1. Insulin. 2. Plavix. 3. Levoxyl. 4. Tradjenta. 5. Norvasc. 6. Lipitor. 7. Cozaar. 8. Symbicort. ALLERGIES: NONE. PHYSICAL EXAMINATION: Patient is currently comfortable, awake. She is not in any acute distress. Blood pressure this afternoon was 129/112. Earlier it was 140/84. Heart rate 81 per minute. Patient is afebrile. EXAMINATION OF THE HEART: S1 and S2. EXAMINATION OF LUNGS: Bilateral breath sounds are heard. ABDOMEN: Soft, non-tender, obese. Examination of lower extremities shows chronic skin changes, chronic edema bilaterally. [employer] exam is grossly intact. LABS: Hemoglobin 10.9, sodium 132, potassium 5.1, BUN 38, serum creatinine 2.39, phosphorus 4.8. ASSESSMENT: 1. Acute kidney injury secondary to hypotension, non-steroidal anti-inflammatories and underlying influenza. Patient is nonoliguric. Urine output has picked up. May continue off of IV fluids and Lasix for now. Avoid any further nephrotoxic agents. Patient did receive one dose of vancomycin, which is now discontinued. Her UA does show 3+ protein and small blood. 2. Rule out chronic kidney disease secondary to diabetic nephropathy, given the proteinuria if this is not new. 3. Influenza A, maintained on Tamiflu. 4. History of obstructive sleep apnea. 5. History of chronic obstructive pulmonary disease. 6. Type 2 diabetes. 7. Pulmonary vascular congestion, status post IV diuretics. 8. Possible underlying viral pneumonia. 9. Chronic lower extremity edema. Echocardiogram shows ejection fraction 55% to 60%. Right-sided pressures were not elevated. PLAN: Continue off of IV fluids and diuretics. Repeat labs in a.m. Continue to avoid nephrotoxic agents. Avoid hypotension. Continue with Tamiflu. May continue with the Rocephin for now. Patient will need repeat urinalysis down the road, and if the proteinuria persists, she will need further workup. Thank you for this consultation. Will continue to follow the patient with you during her hospitalization. MMODL / IJN: [id number] /
[2018-04-25] MEDS: MORPHINE SULFATE 2 MG/ML SYRINGE IVP PRN ×2 (17:43→22:29)
[2018-04-25] MEDS ORDERED: VANCOMYCIN 2,000 MG in SODIUM CHLORIDE 0.9% 500 ML 500 ML IVPB ONE (18:00)
[2018-04-25 18:34] LABS: Glucose,Whole Blood 240 mg/dL (75-99)
[2018-04-25 19:09] LABS: Glucose,Whole Blood 251 mg/dL (75-99)
[2018-04-25 19:56] LABS: Glucose,Whole Blood 236 mg/dL (75-99)
[2018-04-25 20:15] LABS: Glucose,Whole Blood 233 mg/dL (75-99)
[2018-04-25] MEDS: INSULIN DETEMIR (LEVEMIR) 100 UNIT/ML SYR SQ SCH (20:23)
[2018-04-25 21:21] LABS: Glucose,Whole Blood 200 mg/dL (75-99)
[2018-04-25 21:57] LABS: Glucose,Whole Blood 189 mg/dL (75-99)
[2018-04-25 23:06] LABS: Glucose,Whole Blood 194 mg/dL (75-99)
[2018-04-25 23:45] LABS: Glucose,Whole Blood 168 mg/dL (75-99)
[2018-04-26] MEDS: NITROGLYCERIN OINT 1 INCH/GM PACKET TOPICAL SCH ×2 (00:20→08:12)
[2018-04-26 01:23] LABS: Glucose,Whole Blood 159 mg/dL (75-99)
[2018-04-26 02:13] LABS: Glucose,Whole Blood 138 mg/dL (75-99)
[2018-04-26 03:13] LABS: Glucose,Whole Blood 134 mg/dL (75-99)
[2018-04-26] MEDS: INSULIN REGULAR 100 UNIT in SODIUM CHLORIDE 0.9% 100 ML IV SCH (04:10)
[2018-04-26 04:11] LABS: Glucose,Whole Blood 151 mg/dL (75-99)
[2018-04-26 04:37] LABS: Basophils % (A) 0 %; Eosinophils # (A) 0.1 k/uL (0-0.7); Eosinophils % (A) 1 %; HCT 36.1 % (34.0-46.0); HGB 11.4 gm/dL (11.4-16.0); Lymphocytes # (A) 1.1 k/uL (1.0-4.8); Lymphocytes % (A) 9 %; MCHC 31.7 g/dL (31.0-37.0); MCV 94.9 fL (80.0-100.0); Mean Platelet Volume 7.5; Monocytes # (A) 0.6 k/uL (0-1.0); Monocytes % (A) 5 %; Neutrophils # (A) 10.7 k/uL (1.3-7.7); Neutrophils % (A) 85 %; Platelet Count 240 k/uL (150-450); RBC 3.81 m/uL (3.80-5.40); RDW 13.6 % (11.5-15.5); WBC 12.6 k/uL (3.8-10.6)
[2018-04-26 04:47] LABS: Calcium 9.1 mg/dL (8.4-10.2); Potassium 5.1 mmol/L (3.5-5.1)
[2018-04-26 05:24] LABS: Glucose,Whole Blood 145 mg/dL (75-99)
[2018-04-26 06:02] LABS: Glucose,Whole Blood 119 mg/dL (75-99)
[2018-04-26 06:59] LABS: Glucose,Whole Blood 127 mg/dL (75-99)
[2018-04-26] MEDS: IPRATROPIUM-ALBUTEROL 3 ML NEB INHALATION SCH ×4 (07:51→20:19)
[2018-04-26] MEDS: FORMOTEROL FUMARATE 20 MCG/2 ML NEBU INHALATION SCH (07:51)
[2018-04-26] MEDS: BUDESONIDE 1 MG/2 ML NEBU INHALATION SCH (07:51)
[2018-04-26 08:11] LABS: Glucose,Whole Blood 154 mg/dL (75-99)
[2018-04-26] MEDS: INSULIN DETEMIR (LEVEMIR) 100 UNIT/ML SYR SQ SCH ×2 (08:30→20:43)
[2018-04-26] MEDS: AZITHROMYCIN 500 MG TAB PO SCH (08:30)
[2018-04-26] MEDS: CLOPIDOGREL 75 MG TAB PO SCH (08:30)
[2018-04-26] MEDS: ATORVASTATIN 40 MG TAB PO SCH (08:30)
[2018-04-26] MEDS: ENOXAPARIN 30 MG/0.3 ML SYRINGE SQ SCH (08:30)
[2018-04-26] MEDS: OSELTAMIVIR 60 MG/10 ML ORAL SYRINGE PO SCH (08:31)
[2018-04-26] MEDS: INSULIN ASPART (NovoLOG) 100 UNIT/ML VIAL SQ SCH ×4 (09:15→20:43)
[2018-04-26] MEDS ORDERED: FUROSEMIDE 10 MG/ML 2 ML VIAL IV ONE (10:21)
[2018-04-26] MEDS: amLODIPine 5 MG TAB PO SCH (10:30)
[2018-04-26 11:20] VITALS: BMI 55.1
--- NOTE | 2018-04-26 11:22 | PN ---
PROGRESS NOTE DATE OF SERVICE: April 26, 2018 This 57-year-old female admitted with a diagnosis of acute hypoxemic respiratory failure secondary to influenza A infection, also with COPD exacerbation and some diastolic heart failure. The patient is doing reasonably well. She was placed on Airvo. Currently, her settings include 50 L/minute and 40% FiO2. Insulin drip is currently off. She is getting a saline IV at KVO. She is feeling much better. She denies any significant shortness of breath, cough, wheezing, or phlegm production. There is no fever or chills. There is no chest pain or chest discomfort. No palpitations. She denies nausea, vomiting or diarrhea. In addition to the influenza A infection, the diastolic heart failure and the COPD exacerbation, she has a history of morbid obesity, diabetes mellitus, fibromyalgia, hyperlipidemia, hypertension, DJD, sleep apnea syndrome, hypothyroidism, macular degeneration, stress urinary incontinence and PVOD. Current vital signs are reviewed. Her temperature is 38.1, heart rate is 83, respiratory rate 14, blood pressure 122/67, mean 85 and 4 L saturation 95%. Appears in no acute distress. HEENT examination is grossly unremarkable. Mucous membranes are moist. No oral lesions. Airvo has been switched to nasal cannula. NECK: Supple. Full range of motion. No adenopathy or thyromegaly. Neck veins are flat. Cardiovascular examination reveals distant heart sounds. S1, S2 normal. Heart rate about 80 beats per minute. S1, S2 normal. No distinct murmur noted. Lungs reveal some mild bibasilar crackles. There are a few scattered rhonchi. No wheezes. Breath sounds are equal bilaterally but diminished throughout. Abdomen is obese. Bowel sounds are heard. Extremities are intact. Mild edema noted. Skin without rash. Neurologic examination is brief but nonfocal. Laboratory data includes a white count of 12.6, hemoglobin 10.4, hematocrit 36.1, platelet count 240,000. Sodium 133, potassium 5.1, chloride 104, CO2 of 24. BUN and creatinine were 53 and 2.25. Chest x-ray was not done today. Abdomen and bladder ultrasound showed a small upper pole right kidney cyst. There was no hydronephrosis. Microbiologic studies are negative. Medications are reviewed. She remains on Zithromax and ceftriaxone. ASSESSMENT: 1. Acute hypoxemic respiratory failure secondary to influenza A infection, along with acute chronic obstructive pulmonary disease exacerbation and acute exacerbation of diastolic heart failure. 2. Mild troponin leak. 3. History of chronic obstructive pulmonary disease. 4. History of morbid obesity. 5. Diabetes mellitus. 6. Fibromyalgia. 7. Hypertension. 8. Hyperlipidemia. 9. Degenerative joint disease. 10.History of sleep apnea syndrome. 11.Hypothyroidism. 12.Macular degeneration. 13.Peripheral vascular disease. 14.Stress urinary incontinence. PLAN: The patient's medications are reviewed. Please see the adjustments. We will take her off of Airvo and trial her on some nasal prongs. From my perspective, she can leave the unit today. Medications are reviewed. Microbiology is negative. We will consolidate her medications. Her prognosis is guarded. No additional recommendations are made. We will continue to follow. DON / ESTEEN: [id number] /
--- NOTE | 2018-04-26 11:22 | PN ---
PROGRESS NOTE Patient is seen for followup for acute kidney injury. She was admitted to the hospital with influenza A. She is currently off of IV fluids as well as diuretics. Renal function has improved with creatinine going down to 2.25 from 2.39 yesterday. Urine output has picked up. Overall, patient states she is feeling better. PHYSICAL EXAMINATION: On examination, blood pressure was 122/67, heart rate 80 per minute. Patient is afebrile. EXAMINATION OF THE HEART: S1, S2. EXAMINATION OF THE LUNGS: Decreased breath sounds at bases. Abdomen is soft, nontender. Examination lower extremity shows chronic edema bilaterally with chronic skin changes. LABS: Labs show sodium 133, potassium 5.1, BUN 53, serum creatinine 2.25, hemoglobin 11.4 g/dL. ASSESSMENT: 1. Acute kidney injury secondary to hypotension and hypoperfusion initially oliguric, currently nonoliguric with some improvement in renal function. 2. Possible underlying chronic kidney disease secondary to diabetic nephropathy. 3. Influenza A, maintained on Tamiflu. 4. Chronic lower extremity edema. 5. Type 2 diabetes. 6. Volume overload, somewhat improved from initial admission. 7. Chronic obstructive pulmonary disease. PLAN: IV Lasix 20 mg x1. The patient is stable for transfer out of the ICU. We can remove the Leigh catheter. Repeat labs in a.m. and continue to avoid nephrotoxic agents and avoid hypotension. MMODL / IJN: [id number] /
[2018-04-26] MEDS: MORPHINE SULFATE 2 MG/ML SYRINGE IVP PRN ×3 (11:33→18:34)
[2018-04-26 12:09] LABS: Glucose,Whole Blood 211 mg/dL (75-99)
--- NOTE | 2018-04-26 12:30 | P.PN ---
Subjective Progress Note Date: 04/26/18 This 57-year-old female with a significant peripheral vascular disease was admitted to the hospital with complaints of cough, congestion and generalized weakness. Her echo Cardigan showed normal LV function. Her troponin values showed increased increasing levels but appears to be paralleling the increase in creatinine levels. Today patient is feeling better. Complains of mild generalized aches pain. No complaints of any chest pain or shortness of breath. Her lab values showed white count of 12.68, hemoglobin is 11.4. Her creatinine is down to 2.258, potassium is 5.1. Patient is also feeling followed by nephrology. She is putting out good amount of urine. We'll continue current management Objective - Vital Signs Vital signs: Vital Signs Temp 97.8 F 04/26/18 12:00 Pulse 82 04/26/18 12:19 Resp 14 04/26/18 12:00 BP 148/81 04/26/18 12:00 Pulse Ox 94 L 04/26/18 12:00 Intake & Output 04/25/18 04/26/18 04/26/18 18:59 06:59 18:59 Intake Total 368.177 810.967 550 Output Total 845 1250 600 Balance -476.823 -439.033 -50 Weight 141.3 kg Intake: IV 150 310 0 Sodium Chloride 0.9% 1, 150 260 0 000 ml @ 20 mls/hr IV . Q24H [facility] Rx#:[id number] cefTRIAXone 1 gm In 50 Sodium Chloride 0.9% 50 ml @ 100 mls/hr IVPB Q24H [facility] Rx#:[id number] Intake, IV Titration 218.177 250.967 Amount Insulin Regular 100 unit 218.177 In Sodium Chloride 0.9% 100 ml @ Per Protocol IV .Q0M [facility] Rx#:[id number] Insulin Regular 100 unit 250.967 In Sodium Chloride 0.9% 100 ml @ Per Protocol IV .Q0M [facility] Rx#:[id number] Oral 250 550 Output: Urine 845 1250 600 Other: Voiding Method Indwelling Catheter Indwelling Catheter Indwelling Catheter - Exam GENERAL EXAM: Patient is alert and oriented and doesn't appear to be in any a cute distress HEENT: Normocephalic. Normal reaction of pupils, equal size, normal range of extraocular motion. No erythema or exudates in the throat. NECK: No masses, no nuchal rigidity. CHEST: No chest wall deformity. LUNGS: Diminished air exchange HEART: S1 and S2 normal with no audible mumurs or gallops. Regular rhythm, femorals equal on both sides.. ABDOMEN: No hepatosplenomegaly, normal bowel sounds, no guarding or rigidity. SKIN: No rashes CENTRAL NERVOUS SYSTEM: No focal deficits. EXTREMITIES: No cyanosis, clubbing or edema. - Labs CBC & Chem 7: 04/26/18 04:22 04/26/18 04:22 Labs: Abnormal Lab Results - Last 24 Hours (Table) 04/25/18 04/25/18 04/25/18 Range/Units 05:31 13:14 14:02 WBC (3.8-10.6) k/uL Neutrophils # (1.3-7.7) k/uL Sodium (137-145) mmol/L BUN (7-17) mg/dL Creatinine (0.52-1.04) mg/dL Glucose (74-99) mg/dL POC Glucose (mg/dL) 255 H 233 H (75-99) mg/dL Hemoglobin A1c 12.9 H (4.0-6.0) % 04/25/18 04/25/18 04/25/18 Range/Units 15:15 16:06 17:06 WBC (3.8-10.6) k/uL Neutrophils # (1.3-7.7) k/uL Sodium (137-145) mmol/L BUN (7-17) mg/dL Creatinine (0.52-1.04) mg/dL Glucose (74-99) mg/dL POC Glucose (mg/dL) 286 H 249 H 249 H (75-99) mg/dL Hemoglobin A1c (4.0-6.0) % 04/25/18 04/25/18 04/25/18 Range/Units 18:33 19:07 19:55 WBC (3.8-10.6) k/uL Neutrophils # (1.3-7.7) k/uL Sodium (137-145) mmol/L BUN (7-17) mg/dL Creatinine (0.52-1.04) mg/dL Glucose (74-99) mg/dL POC Glucose (mg/dL) 240 H 251 H 236 H (75-99) mg/dL Hemoglobin A1c (4.0-6.0) % 04/25/18 04/25/18 04/25/18 Range/Units 20:14 21:18 21:56 WBC (3.8-10.6) k/uL Neutrophils # (1.3-7.7) k/uL Sodium (137-145) mmol/L BUN (7-17) mg/dL Creatinine (0.52-1.04) mg/dL Glucose (74-99) mg/dL POC Glucose (mg/dL) 233 H 200 H 189 H (75-99) mg/dL Hemoglobin A1c (4.0-6.0) % 04/25/18 04/25/18 04/26/18 Range/Units 23:05 23:43 01:21 WBC (3.8-10.6) k/uL Neutrophils # (1.3-7.7) k/uL Sodium (137-145) mmol/L BUN (7-17) mg/dL Creatinine (0.52-1.04) mg/dL Glucose (74-99) mg/dL POC Glucose (mg/dL) 194 H 168 H 159 H (75-99) mg/dL Hemoglobin A1c (4.0-6.0) % 04/26/18 04/26/18 04/26/18 Range/Units 02:11 03:11 04:09 WBC (3.8-10.6) k/uL Neutrophils # (1.3-7.7) k/uL Sodium (137-145) mmol/L BUN (7-17) mg/dL Creatinine (0.52-1.04) mg/dL Glucose (74-99) mg/dL POC Glucose (mg/dL) 138 H 134 H 151 H (75-99) mg/dL Hemoglobin A1c (4.0-6.0) % 04/26/18 04/26/18 04/26/18 Range/Units 04:22 04:22 05:21 WBC 12.6 H (3.8-10.6) k/uL Neutrophils # 10.7 H (1.3-7.7) k/uL Sodium 133 L (137-145) mmol/L BUN 53 H (7-17) mg/dL Creatinine 2.25 H (0.52-1.04) mg/dL Glucose 160 H (74-99) mg/dL POC Glucose (mg/dL) 145 H (75-99) mg/dL Hemoglobin A1c (4.0-6.0) % 04/26/18 04/26/18 04/26/18 Range/Units 06:01 06:57 08:09 WBC (3.8-10.6) k/uL Neutrophils # (1.3-7.7) k/uL Sodium (137-145) mmol/L BUN (7-17) mg/dL Creatinine (0.52-1.04) mg/dL Glucose (74-99) mg/dL POC Glucose (mg/dL) 119 H 127 H 154 H (75-99) mg/dL Hemoglobin A1c (4.0-6.0) % 04/26/18 Range/Units 11:57 WBC (3.8-10.6) k/uL Neutrophils # (1.3-7.7) k/uL Sodium (137-145) mmol/L BUN (7-17) mg/dL Creatinine (0.52-1.04) mg/dL Glucose (74-99) mg/dL POC Glucose (mg/dL) 211 H (75-99) mg/dL Hemoglobin A1c (4.0-6.0) % Microbiology - Last 24 Hours (Table) 04/23/18 21:11 Blood Culture - Preliminary Blood No Growth after 48 hours 04/23/18 22:48 Urine Culture - Preliminary Urine,Catheterized Assessment and Plan (1) COPD (chronic obstructive pulmonary disease) Current Visit: Yes Status: Acute Code(s): J44.9 - CHRONIC OBSTRUCTIVE PULMONARY DISEASE, UNSPECIFIED SNOMED Code(s): 49513634 (2) Diabetes mellitus type 2, uncontrolled, with complications Current Visit: Yes Status: Acute Code(s): E11.8 - TYPE 2 DIABETES MELLITUS WITH UNSPECIFIED COMPLICATIONS; E11.65 - TYPE 2 DIABETES MELLITUS WITH HYPERGLYCEMIA SNOMED Code(s): 39848327 (3) Sepsis Current Visit: No Status: Acute Code(s): A41.9 - SEPSIS, UNSPECIFIED ORGANISM SNOMED Code(s): 91295318 (4) Acute renal failure Current Visit: Yes Status: Acute Code(s): N17.9 - ACUTE KIDNEY FAILURE, UNSPECIFIED SNOMED Code(s): 14708616 (5) Troponin level elevated Current Visit: Yes Status: Acute Code(s): R74.8 - ABNORMAL LEVELS OF OTHER SERUM ENZYMES SNOMED Code(s): 025787348 Plan: Her renal functions seem to be improving. Continue current management. No acute cardiac intervention at this time. We'll follow
[2018-04-26 17:00] LABS: Glucose,Whole Blood 258 mg/dL (75-99)
--- NOTE | 2018-04-26 17:43 | P.PN ---
Subjective This is a pleasant 67 years old female with past medical history of COPD, diabetes mellitus, fibromyalgia, hyperlipidemia, hypertension, arthritis, sleep apnea on CPAP/BiPAP, recent history of diabetic right foot ulcer and osteomyelitis, hypothyroidism, diabetic neuropathy of hands and feet, , history of pneumonia, bowel and urinary incontinence. Her PCP is Dr. Mcknight. Patient states she was feeling not good for 2 days which she got worse yesterday so she doesn't come to the hospital without specification. Patient complaining from generalized myalgia and arthralgia, she has some dry cough but no flame. With the emergency room patient states that she started having dyspnea. However she denies chest pain or discomfort. No abdominal pain. No change in urine or bowel habits. On admission she had fever of 100.9. Her oxygen requirement increased from 5 L/m 15 L/m. Blood pressure 106/57. She had mild leukocytosis of 11.6 K, hemoglobin 10.3. Platelets 182. Sodium 132. Creatinine increased 1.9 compared to baseline of 0.7. Sugar is elevated at 454. Lactic acid was 5.0, down to 4.1. Calcium 8.4. Troponin is elevated at 0.6 and 0.79. ProBNP is 1540. Influenza A is detected.. Chest x-ray: Pulmonary congestion with possible pulmonary edema and possible retrocardiac and lower lobe infiltrate. EKG: Sinus tachycardia at 106, no significant ST-T changes. QTC 4:30 In the emergency room patient received ibuprofen, fluids more than 2 L and symmetrical normal saline and the fluid per hour. She got ceftriaxone and vancomycin. And Zithromax. She was started on Lovenox, Plavix and insulin. 04/25/2018 Today patient is more awake and alert, she feels more comfortable visit drowsy less distinct. She was started on airflow in the ICU, she is currently on 60 L which is equivalent to 50%. Patient denies chest pain, no dry cough, however she still have dyspnea although it's improving. No headache. No change in urine or bowel habits. She still have muscle spasms and pain especially in her lower legs. Doppler ultrasound failed to show DVT. Her myalgia and arthralgia also bothering her but they are improving. Vitals stable. Leukocytosis is improving. Creatinine trending up from 1.9 up to 2.3. Nephrology team has been consulted. Sugar is controlled. Lactic acid is 2-2.4, repeat was pending. 04/26/2018 Patient remains in the ICU, patient keep improving and needing less oxygen. Pulmonary were planning to take her off area for today. Possible cleared by pulmonary/critical care team to be discharged to the general medical floor. Nephrology follow-up is appreciated. Patient got 1 extra dose of Lasix today. Possible DC of the Leigh catheter. Vitals more stable, she is saturating 94% on 4 L oxygen. WBC is 12.6 K. Lactic acid back to normal at 1.2. Creatinine is slightly improved to 2.25 Patient will need nebulizer therapy when she be discharged home, prescription is signed with the casework manager. Review of systems CONSTITUTIONAL: No fever, no malaise, no fatigue. HEENT: No recent visual problems or hearing problems. Denied any sore throat. CARDIOVASCULAR: No orthopnea, PND, no palpitations, no syncope. PULMONARY: No shortness of breath, no cough, no hemoptysis. GASTROINTESTINAL: No diarrhea, no nausea, no vomiting, no abdominal pain. Normoactive bowel sounds. NEUROLOGICAL: No headaches, no weakness, no numbness. HEMATOLOGICAL: Denies any bleeding or petechiae. GENITOURINARY: Denies any burning micturition, frequency, or urgency. MUSCULOSKELETAL/RHEUMATOLOGICAL: Denies any joint pain, swelling, or any muscle pain. ENDOCRINE: Denies any polyuria or polydipsia. Medication: Albuterol, Lipitor, Zithromax, budesonide, soft Carl, Plavix, Lovenox, performance, Lasix, Levemir, naloxone, nitroglycerin, Tamiflu. Objective - Vital Signs Vital signs: Vital Signs Temp 38.8 F L 04/26/18 16:00 Pulse 86 04/26/18 17:00 Resp 13 04/26/18 17:00 BP 138/69 04/26/18 17:00 Pulse Ox 94 L 04/26/18 17:00 Intake & Output 04/25/18 04/26/18 04/26/18 18:59 06:59 18:59 Intake Total 368.177 178.988 2859 Output Total 845 1250 2125 Balance -476.823 -439.033 -850 Weight 141.3 kg Intake: IV 150 310 0 Sodium Chloride 0.9% 1, 150 260 0 000 ml @ 20 mls/hr IV . Q24H [facility] Rx#:[id number] cefTRIAXone 1 gm In 50 Sodium Chloride 0.9% 50 ml @ 100 mls/hr IVPB Q24H [facility] Rx#:[id number] Intake, IV Titration 218.177 250.967 Amount Insulin Regular 100 unit 218.177 In Sodium Chloride 0.9% 100 ml @ Per Protocol IV .Q0M [facility] Rx#:[id number] Insulin Regular 100 unit 250.967 In Sodium Chloride 0.9% 100 ml @ Per Protocol IV .Q0M [facility] Rx#:[id number] Oral 250 1275 Output: Urine 845 1250 2125 Other: Voiding Method Indwelling Catheter Indwelling Catheter Indwelling Catheter - Exam GENERAL: The patient is alert and oriented x3, not in any acute distress. Well developed, well nourished. HEENT: Pupils are round and equally reacting to light. EOMI. No scleral icterus. No conjunctival pallor. Normocephalic, atraumatic. No pharyngeal erythema. No thyromegaly. CARDIOVASCULAR: S1 and S2 present. No murmurs, rubs, or gallops. PULMONARY: Chest is clear to auscultation, no wheezing or crackles. ABDOMEN: Soft, nontender, nondistended, normoactive bowel sounds. No palpable organomegaly. MUSCULOSKELETAL: No joint swelling or deformity. -EXTREMITIES: No cyanosis, clubbing, . Bilateral pedal edema. NEUROLOGICAL: Gross neurological examination did not reveal any focal deficits. SKIN: No rashes. - Labs CBC & Chem 7: 04/26/18 04:22 04/26/18 04:22 Labs: Abnormal Lab Results - Last 24 Hours (Table) 04/25/18 04/25/18 04/25/18 Range/Units 18:33 19:07 19:55 WBC (3.8-10.6) k/uL Neutrophils # (1.3-7.7) k/uL Sodium (137-145) mmol/L BUN (7-17) mg/dL Creatinine (0.52-1.04) mg/dL Glucose (74-99) mg/dL POC Glucose (mg/dL) 240 H 251 H 236 H (75-99) mg/dL 04/25/18 04/25/18 04/25/18 Range/Units 20:14 21:18 21:56 WBC (3.8-10.6) k/uL Neutrophils # (1.3-7.7) k/uL Sodium (137-145) mmol/L BUN (7-17) mg/dL Creatinine (0.52-1.04) mg/dL Glucose (74-99) mg/dL POC Glucose (mg/dL) 233 H 200 H 189 H (75-99) mg/dL 04/25/18 04/25/18 04/26/18 Range/Units 23:05 23:43 01:21 WBC (3.8-10.6) k/uL Neutrophils # (1.3-7.7) k/uL Sodium (137-145) mmol/L BUN (7-17) mg/dL Creatinine (0.52-1.04) mg/dL Glucose (74-99) mg/dL POC Glucose (mg/dL) 194 H 168 H 159 H (75-99) mg/dL 04/26/18 04/26/18 04/26/18 Range/Units 02:11 03:11 04:09 WBC (3.8-10.6) k/uL Neutrophils # (1.3-7.7) k/uL Sodium (137-145) mmol/L BUN (7-17) mg/dL Creatinine (0.52-1.04) mg/dL Glucose (74-99) mg/dL POC Glucose (mg/dL) 138 H 134 H 151 H (75-99) mg/dL 04/26/18 04/26/18 04/26/18 Range/Units 04:22 04:22 05:21 WBC 12.6 H (3.8-10.6) k/uL Neutrophils # 10.7 H (1.3-7.7) k/uL Sodium 133 L (137-145) mmol/L BUN 53 H (7-17) mg/dL Creatinine 2.25 H (0.52-1.04) mg/dL Glucose 160 H (74-99) mg/dL POC Glucose (mg/dL) 145 H (75-99) mg/dL 04/26/18 04/26/18 04/26/18 Range/Units 06:01 06:57 08:09 WBC (3.8-10.6) k/uL Neutrophils # (1.3-7.7) k/uL Sodium (137-145) mmol/L BUN (7-17) mg/dL Creatinine (0.52-1.04) mg/dL Glucose (74-99) mg/dL POC Glucose (mg/dL) 119 H 127 H 154 H (75-99) mg/dL 04/26/18 04/26/18 Range/Units 11:57 16:58 WBC (3.8-10.6) k/uL Neutrophils # (1.3-7.7) k/uL Sodium (137-145) mmol/L BUN (7-17) mg/dL Creatinine (0.52-1.04) mg/dL Glucose (74-99) mg/dL POC Glucose (mg/dL) 211 H 258 H (75-99) mg/dL Microbiology - Last 24 Hours (Table) 04/23/18 22:48 Urine Culture - Final Urine,Catheterized 04/23/18 21:11 Blood Culture - Preliminary Blood No Growth after 48 hours Assessment and Plan Assessment: Acute pulmonary edema/congestion Elevated troponins, suspicious for non-STEMI is community acquired acute pneumonia Acute influenza a infection with possible pneumonia Systemic inflammatory response with fever and tachycardia Sepsis secondary to influenza pneumonia with possible superimposed bacterial infection Acute hypoxic respiratory failure secondary to above Acute kidney injury High Lactic acid Metabolic versus respiratory and toxic encephalopathy. mild History of COPD, and acute exacerbation. recent history of diabetic right foot ulcer and osteomyelitis,not on antibiotic. she follows up with vascular surgery and wound clinic. Diabetes mellitus Hypertension Hyperlipidemia Hypothyroidism History of sleep apnea Morbid obesity Plan: this is a pleasant 57 this old female who presents with acute influenza pneumonia and acute CHF, and elevated troponins. We'll continue with oxygen therapy, antibiotic and to start Tamiflu. Patient will be transferred to the intensive care unit, case was discussed with Dr. Huang was on consult for pulmonary/critical care. Cardiology consult. Nephrology consult. Insulin therapy. Labs and medication were reviewed.. Continue same treatment. Continue with symptomatic treatment. Resume home medication. Monitor lytes and vitals. DVT and GI prophylaxis. Further recommendations of the clinical course of the patient DVT prophylaxis: sc lovenox GI Prophylaxis: Pepcid Prognosis is guarded and critical
[2018-04-26] MEDS: SYMBICORT 160-4.5 MCG INHALER INHALATION SCH (20:19)
[2018-04-26 20:37] LABS: Glucose,Whole Blood 343 mg/dL (75-99)
[2018-04-27 02:16] LABS: Glucose,Whole Blood 265 mg/dL (75-99)
[2018-04-27] MEDS: INSULIN ASPART (NovoLOG) 100 UNIT/ML VIAL SQ SCH ×5 (02:29→20:32)
[2018-04-27 06:04] LABS: Glucose,Whole Blood 272 mg/dL (75-99)
[2018-04-27] MEDS: MORPHINE SULFATE 2 MG/ML SYRINGE IVP PRN ×4 (07:09→22:59)
[2018-04-27 07:27] LABS: Basophils % (A) 0 %; Eosinophils # (A) 0.2 k/uL (0-0.7); Eosinophils % (A) 2 %; HCT 33.7 % (34.0-46.0); HGB 10.6 gm/dL (11.4-16.0); Hypochromasia Slight; Lymphocytes # (A) 1.4 k/uL (1.0-4.8); Lymphocytes % (A) 17 %; MCH 30.6 pg (25.0-35.0); MCHC 31.5 g/dL (31.0-37.0); MCV 97.2 fL (80.0-100.0); Mean Platelet Volume 7.2; Monocytes # (A) 0.4 k/uL (0-1.0); Monocytes % (A) 5 %; Neutrophils # (A) 6.1 k/uL (1.3-7.7); Neutrophils % (A) 74 %; Platelet Count 233 k/uL (150-450); RBC 3.47 m/uL (3.80-5.40); RDW 13.6 % (11.5-15.5); WBC 8.2 k/uL (3.8-10.6)
[2018-04-27 07:36] LABS: Calcium 8.9 mg/dL (8.4-10.2); Potassium 5.5 mmol/L (3.5-5.1)
[2018-04-27] MEDS: IPRATROPIUM-ALBUTEROL 3 ML NEB INHALATION SCH ×4 (08:29→20:57)
[2018-04-27] MEDS: SYMBICORT 160-4.5 MCG INHALER INHALATION SCH ×2 (08:29→20:57)
[2018-04-27] MEDS: amLODIPine 5 MG TAB PO SCH (09:03)
[2018-04-27] MEDS: AZITHROMYCIN 500 MG TAB PO SCH (09:03)
[2018-04-27] MEDS: ATORVASTATIN 40 MG TAB PO SCH (09:03)
[2018-04-27] MEDS: ENOXAPARIN 30 MG/0.3 ML SYRINGE SQ SCH (09:03)
[2018-04-27] MEDS: CLOPIDOGREL 75 MG TAB PO SCH (09:03)
[2018-04-27] MEDS: INSULIN DETEMIR (LEVEMIR) 100 UNIT/ML SYR SQ SCH ×2 (09:03→20:37)
[2018-04-27] MEDS: OSELTAMIVIR 60 MG/10 ML ORAL SYRINGE PO SCH (09:04)
[2018-04-27] MEDS ORDERED: FUROSEMIDE 10 MG/ML 4 ML VIAL IV STA (09:34)
[2018-04-27 11:36] LABS: Glucose,Whole Blood 293 mg/dL (75-99)
--- NOTE | 2018-04-27 14:43 | P.PN ---
Subjective Progress Note Date: 04/27/18 Principal diagnosis: Hypoxia and respiratory failure, multifactorial related to acute exacerbation of chronic obstructive pulmonary disease, fluid volume overload with possible hany cardial ischemia, influenza a and lower lobe pneumonia Patient is seen today on the selective care unit. She is currently sitting up in a chair at the bedside. She is awake and alert in no acute distress. She is breathing quite a bit better today as compared to yesterday. No worsening shortness of breath, cough or congestion. He is maintaining good O2 saturations in the 90s on 5 L per nasal cannula. She's been afebrile. Hemodynamically stable. Sputum culture positive for Rosa albicans. Otherwise no growth. Urine culture no growth. Blood cultures no growth. White count 8.2. Hem oglobin 10.6. Creatinine 1.77. She remains on DuoNeb inhalations, Symbicort, Tamiflu. Objective - Vital Signs Vital signs: Vital Signs Temp 98.2 F 04/27/18 11:38 Pulse 84 04/27/18 12:16 Resp 20 04/27/18 11:51 BP 140/75 04/27/18 11:38 Pulse Ox 94 L 04/27/18 11:38 Intake & Output 04/26/18 04/27/18 04/27/18 18:59 06:59 18:59 Intake Total 1575 480 Output Total 2400 400 200 Balance -825 -400 280 Weight 141.3 kg Intake: IV 0 Sodium Chloride 0.9% 1, 0 000 ml @ 20 mls/hr IV . Q24H [facility] Rx#:[id number] Oral 1575 480 Output: Urine 2400 400 200 Other: Voiding Method Indwelling Catheter Indwelling Catheter Indwelling Catheter # Voids 1 2 - Exam GENERAL EXAM: Morbidly obese. Alert, active, comfortable in no apparent distress. On 5 L nasal cannula. HEAD: Normocephalic. EYES: Normal reaction of pupils, equal size. NOSE: Clear with pink turbinates. THROAT: Crowding the posterior pharynx. No erythema or exudates. NECK: Short. No masses, no JVD. CHEST: No chest wall deformity. LUNGS: Equal air entry with rales in the bilateral posterior bases, left greater than right, diminished. CVS: S1 and S2 normal with no audible murmur, regular rhythm. ABDOMEN: No hepatosplenomegaly, normal bowel sounds, no guarding or rigidity. SPINE: No scoliosis or deformity SKIN: No rashes CENTRAL NERVOUS SYSTEM: No focal deficits, tone is normal in all 4 extremities. EXTREMITIES: There is trace peripheral edema. No clubbing, no cyanosis. Peripheral pulses are intact. - Labs CBC & Chem 7: 04/27/18 06:30 04/27/18 06:30 Labs: Abnormal Lab Results - Last 24 Hours (Table) 04/26/18 04/26/18 04/27/18 Range/Units 16:58 20:35 02:13 RBC (3.80-5.40) m/uL Hgb (11.4-16.0) gm/dL Hct (34.0-46.0) % Sodium (137-145) mmol/L Potassium (3.5-5.1) mmol/L BUN (7-17) mg/dL Creatinine (0.52-1.04) mg/dL Glucose (74-99) mg/dL POC Glucose (mg/dL) 258 H 343 H 265 H (75-99) mg/dL 04/27/18 04/27/18 04/27/18 Range/Units 06:03 06:30 06:30 RBC 3.47 L (3.80-5.40) m/uL Hgb 10.6 L (11.4-16.0) gm/dL Hct 33.7 L (34.0-46.0) % Sodium 133 L (137-145) mmol/L Potassium 5.5 H (3.5-5.1) mmol/L BUN 60 H (7-17) mg/dL Creatinine 1.77 H (0.52-1.04) mg/dL Glucose 262 H (74-99) mg/dL POC Glucose (mg/dL) 272 H (75-99) mg/dL 04/27/18 Range/Units 11:27 RBC (3.80-5.40) m/uL Hgb (11.4-16.0) gm/dL Hct (34.0-46.0) % Sodium (137-145) mmol/L Potassium (3.5-5.1) mmol/L BUN (7-17) mg/dL Creatinine (0.52-1.04) mg/dL Glucose (74-99) mg/dL POC Glucose (mg/dL) 293 H (75-99) mg/dL Microbiology - Last 24 Hours (Table) 04/26/18 10:25 Gram Stain - Preliminary Sputum Sputum Culture - Preliminary Rosa albicans 04/23/18 21:11 Blood Culture - Preliminary Blood No Growth after 72 hours 04/23/18 22:48 Urine Culture - Final Urine,Catheterized Assessment and Plan Assessment: Impression: #1 Acute hypoxemic respiratory failure secondary to influenza A infection with an acute exacerbation of chronic obstructive pulmonary disease and acute exacerbation of diastolic congestive heart failure. Troponin leak felt to be secondary to acute renal failure. #2 History of chronic obstructive pulmonary disease. #3 Morbid obesity. #4 Diabetes mellitus with steroid-induced hyperglycemia. #5 Fibromyalgia. #6 Hyperlipidemia. #7 Hypertension. #8 Degenerative joint disease. #9 History of obstructive sleep apnea syndrome. #10 Hypothyroidism. #11 Macular degeneration. #12 Stress urinary incontinence. #13 Peripheral vascular disease with previous STAVE MILL HAND of the right SFA in March 2018. Plan: The patient was seen and evaluated by Dr. Huang. Her oxygen requirements have improved in the last 24 hours. We will continue to decrease the FiO2 as tolerated. Tamiflu continues as well. Continue bronchodilators. We'll continue to follow and make further recommendations based on her clinical status. Possible discharge in the a.m. I, the cosigning physician, performed a history & physical examination of the patient. Lungs sounds with crackles in the bilateral posterior bases. Maintaining good O2 saturations in the 90s on 5 L/m per nasal cannula. I discussed the assessment and plan of care with my nurse practitioner, Tootie Jara. I attest to the above note as dictated by her.
--- NOTE | 2018-04-27 15:29 | PN ---
PROGRESS NOTE Patient is seen for followup for acute kidney injury. She was admitted to the hospital with shortness of breath and influenza A. Patient was initially diuresed. Currently her diuretics are on hold; however, I did give her Lasix 20 mg IV push x1 yesterday. Serum creatinine is down to 1.7 from peak of 2.39 two days ago. Patient states she is feels better. She denies any significant complaints except for increased lower extremity edema. PHYSICAL EXAMINATION: Blood pressure 140/75, heart rate 86 per minute, she is afebrile. Examination of the heart, S1, S2. Examination of the lungs, bilateral breath sounds are heard. Decreased breath sounds at the bases. Abdomen is soft, nontender. Examination of the lower extremities shows chronic edema, chronic skin changes. ASSOCIATE PROFESSOR OF THEOLOGY exam is grossly intact. LABS: Show sodium 133, potassium 5.5, BUN 60, serum creatinine 1.7, blood sugar is elevated. ASSESSMENT: 1. Acute kidney injury secondary to hypotension, hypoperfusion, currently improved. 2. Hyperkalemia associated with acute kidney injury as well as severe hyperglycemia. Expect improvement with IV Lasix. Patient is also advised to avoid high potassium containing foods. 3. Influenza A, maintained on Tamiflu. 4. Hypervolemic, hyponatremia. Expect improvement with diuresis. PLAN: Lasix 40 mg IV x1 now. Repeat labs in a.m. Maintain patient on low-potassium diet, control blood sugars. MMODL / IJN: [id number] /
[2018-04-27 17:15] LABS: Glucose,Whole Blood 316 mg/dL (75-99)
--- NOTE | 2018-04-27 18:50 | PN ---
PROGRESS NOTE Mrs. Thrasher is resting comfortably. She has had diastolic heart failure, possible influenza. Denies chest pain. S1-S2 are heard normally. Short systolic murmur noted. Lungs are clear. Abdomen and lower extremity exam unchanged. Plan is to continue current medications. Increase activity. I will see her as needed from a cardiac standpoint. MMODL / IJN: [id number] /
[2018-04-27 20:30] LABS: Glucose,Whole Blood 284 mg/dL (75-99)
[2018-04-28 02:22] LABS: Glucose,Whole Blood 209 mg/dL (75-99)
[2018-04-28] MEDS: INSULIN ASPART (NovoLOG) 100 UNIT/ML VIAL SQ SCH ×5 (02:33→21:20)
[2018-04-28] MEDS: MORPHINE SULFATE 2 MG/ML SYRINGE IVP PRN ×4 (04:53→23:01)
[2018-04-28 06:20] LABS: Glucose,Whole Blood 228 mg/dL (75-99)
[2018-04-28 06:46] LABS: Basophils # (A) 0.1 k/uL (0-0.2); Basophils % (A) 1 %; Eosinophils # (A) 0.2 k/uL (0-0.7); Eosinophils % (A) 3 %; HCT 33.5 % (34.0-46.0); HGB 10.3 gm/dL (11.4-16.0); Hypochromasia Slight; Lymphocytes # (A) 1.6 k/uL (1.0-4.8); Lymphocytes % (A) 23 %; MCH 29.4 pg (25.0-35.0); MCHC 30.6 g/dL (31.0-37.0); Mean Platelet Volume 7.1; Monocytes # (A) 0.5 k/uL (0-1.0); Monocytes % (A) 6 %; Neutrophils # (A) 4.7 k/uL (1.3-7.7); Neutrophils % (A) 65 %; Platelet Count 220 k/uL (150-450); RBC 3.49 m/uL (3.80-5.40); RDW 13.6 % (11.5-15.5); WBC 7.3 k/uL (3.8-10.6)
[2018-04-28 07:04] LABS: Potassium 5.7 mmol/L (3.5-5.1)
[2018-04-28] MEDS: IPRATROPIUM-ALBUTEROL 3 ML NEB INHALATION SCH ×4 (07:17→19:31)
[2018-04-28] MEDS: SYMBICORT 160-4.5 MCG INHALER INHALATION SCH ×2 (07:17→19:31)
[2018-04-28] MEDS: amLODIPine 5 MG TAB PO SCH (08:45)
[2018-04-28] MEDS: CLOPIDOGREL 75 MG TAB PO SCH (08:45)
[2018-04-28] MEDS: AZITHROMYCIN 500 MG TAB PO SCH (08:45)
[2018-04-28] MEDS: ATORVASTATIN 40 MG TAB PO SCH (08:45)
[2018-04-28] MEDS: ENOXAPARIN 30 MG/0.3 ML SYRINGE SQ SCH (08:45)
[2018-04-28] MEDS: INSULIN DETEMIR (LEVEMIR) 100 UNIT/ML SYR SQ SCH ×2 (08:46→21:19)
[2018-04-28 11:52] LABS: Glucose,Whole Blood 264 mg/dL (75-99)
[2018-04-28] MEDS: OSELTAMIVIR 60 MG/10 ML ORAL SYRINGE PO SCH (12:25)
--- NOTE | 2018-04-28 14:30 | PN ---
PROGRESS NOTE The patient is seen for followup for acute kidney injury. She was admitted with influenza. Renal function has been improving. Patient has been off of IV fluids. However, for the last couple of days, she has received IV Lasix. Renal function continues to improve. Serum potassium has been staying on the high side and blood sugars are also noted to be significantly elevated about 232-64 mg/dL. PHYSICAL EXAMINATION: On examination today, blood pressure is 148/86, heart rate 81 per minute. Patient is afebrile. Examination shows chronic lower extremity edema with chronic skin changes. Abdomen is soft, obese, nontender. PRESIDENTIAL HELICOPTER CREW CHIEF exam is grossly intact. LAB: Show hemoglobin 10.3, sodium 133, potassium 5.7, BUN 59, serum creatinine 1.5. ASSESSMENT: 1. Acute kidney injury and ATN currently improving. Serum creatinine is down from 2.39 to 1.5 now. Previous creatinine was 0.74 mg/dL. The patient's blood pressure was low initially. This has now improved. She is currently being diuresed and is tolerating it well. 2. Hyperkalemia associated with acute kidney injury and hyperglycemia. The patient is maintained on low-potassium diet. I will maintain her on IV Lasix on a daily basis for now. This will help with the potassium excretion and need to control the blood sugars. 3. Influenza A, maintained on Tamiflu. 4. Possible pneumonia maintained on antibiotics. PLAN: Maintained on IV Lasix daily. We will discuss with nursing staff regarding elevated blood sugars. MMODL / IJN: [id number] /
--- NOTE | 2018-04-28 14:51 | PN ---
PROGRESS NOTE DATE OF SERVICE: April 28, 2018 This is a patient who is again seen on the 6 selective floor. She is in room 383. She is sitting at the bedside. She is awake and alert. She has no distress. The patient states that she was not going to be discharged home today because she apparently is having some issues with her kidneys and the kidney doctors want to keep her another day or 2. From the pulmonary standpoint, she is feeling much better. She denies any significant shortness of breath, cough, or congestion. No fever, chills. No chest pain or chest discomfort. She is currently on O2 at 4 L. Her saturations are between 88 and 94%. Hemodynamically she is stable. So far microbiologic studies are negative. She has a history of acute hypoxemic respiratory failure secondary to influenza A, COPD, morbid obesity, diabetes, fibromyalgia, hyperlipidemia, hypertension, DJD, sleep apnea syndrome, hypothyroidism, macular degeneration, stress urinary incontinence, and peripheral vascular occlusive disease. Current vital signs are reviewed. Temperature is 98.2, heart rate 80, respiratory rate 20, blood pressure 148/86, mean 106, 2 L saturation 93%. Appears in no acute distress. HEENT examination is grossly unremarkable. Mucous membranes are moist. Nasal O2 noted. Neck is supple. Full range of motion. No adenopathy or thyromegaly. Neck veins are flat. Cardiovascular examination reveals regular rhythm rate. S1, S2 normal. No S3, S4, or murmur. Heart sounds are distant. Lungs reveal mostly clear breath sounds. Breath sounds are diminished throughout. No wheezes or rhonchi. No crackles. Slight prolongation on forced maneuver. Abdomen is obese. Bowel sounds are heard. There is no masses or tenderness. Extremities are intact. Mild edema. Skin without rash. Neurologic examination is brief but nonfocal. LABS: Reviewed. White count 7.3, hemoglobin 10.3, hematocrit 33.5, platelet count 320,000. Sodium 133, potassium 5.7, chloride 104, CO2 of 22, BUN and creatinine were 59 and 1.51. No recent x-rays to report. ASSESSMENT: 1. Acute hypoxemic respiratory failure secondary to influenza A infection with exacerbation of the patient's underlying chronic obstructive pulmonary disease. 2. Acute exacerbation of diastolic heart failure. 3. History of worsening renal function with hyperkalemia. 4. Chronic obstructive pulmonary disease exacerbation. 5. Obesity. 6. Diabetes mellitus. 7. Fibromyalgia. 8. Hyperlipidemia. 9. Hypertension. 10.Degenerative joint disease. 11.History of sleep apnea syndrome. 12.Hypothyroidism. 13.Macular degeneration. 14.Stress urinary incontinence. 15.Peripheral vascular occlusive disease. PLAN: The patient's medications are reviewed. The labs are reviewed. The patient is doing better from the pulmonary standpoint. From the pulmonary standpoint, the patient could be discharged but I believe the patient is going to be kept in the day or 2 because of worsening renal function. The Lasix has been discontinued by the airbrush artist technical. Additional recommendations and suggestions are forthcoming. We will continue to follow. The antibiotic can be discontinued. Updrafts can be maintained. MMODL / IJN: [id number] /
[2018-04-28] MEDS: FUROSEMIDE 10 MG/ML 4 ML VIAL IV SCH (16:18)
[2018-04-28 16:53] LABS: Glucose,Whole Blood 246 mg/dL (75-99)
[2018-04-28 20:54] LABS: Glucose,Whole Blood 269 mg/dL (75-99)
--- NOTE | 2018-04-28 23:14 | P.PN ---
Subjective Progress Note Date: 04/27/18 Principal diagnosis: Influenza A, CHF and COPD Exacerbation. Ms. Thrasher is a 67-year-old female with a past medical history of COPD, diabetes mellitus, provider, hyperlipidemia, hypertension, arthritis, obstructive sleep apnea, recent history of diabetic foot ulcer and osteomyelitis, hypothyroidism, diabetic neuropathy admitted to the hospital with generalized myalgia and dry cough. Patient has been tested positive for influenza A and she was also found to have possible retrocardiac left lower lobe infiltrate and so admitted for further management. On 04/27/2018-patient has been transferred out of ICU yesterday. Patient is sitting up in a chair by the bedside appears to be no acute distress. No active overnight issues reported by the nursing staff. On review of systems -patient states her breathing is improved compared to yesterday. She also reports less cough compared to yesterday. Patient denies having any fevers chills or rigors. She denies having any abdominal pain nausea vomiting or diarrhea. She denies dysuria or hematuria. She complains of mild lower extremity swelling bilaterally. Active Medications Albuterol/Ipratropium (Duoneb 0.5 Mg-3 Mg/3 Ml Soln) 3 ml INHALATION RT-QID [facility] Albuterol/Ipratropium (Duoneb 0.5 Mg-3 Mg/3 Ml Soln) 3 ml INHALATION RT-Q2H PRN Amlodipine Besylate (Norvasc) 5 mg PO DAILY [facility] Atorvastatin Calcium (Lipitor) 40 mg PO DAILY [facility] Budesonide/Formoterol Fumarate (Symbicort 160-4.5 Mcg Inhaler) 2 puff INHALATION RT-BID [facility] Clopidogrel Bisulfate (Plavix) 75 mg PO DAILY [facility] Enoxaparin Sodium (Lovenox) 30 mg SQ DAILY [facility] Furosemide (Lasix) 40 mg IV DAILY [facility] Insulin Aspart (Novolog) 0 unit SQ [id number] [facility]; Protocol Insulin Detemir (Levemir) 60 unit SQ BID [facility] Miscellaneous Information (Pneumonia Protocol Utilized) 1 each PO ONCE PRN Miscellaneous Information (Magnesium Per Protocol) 1 each MISCELLANE DAILY PRN; Protocol Morphine Sulfate (Morphine Sulfate (Inj)) 2 mg IVP Q4HR PRN Naloxone HCl (Narcan) 0.2 mg IV Q2M PRN Sodium Chloride (Deep Sea) 2 spray NASAL QID PRN Objective - Vital Signs Vital signs: Vital Signs Temp 98.3 F 04/27/18 20:00 Pulse 84 04/27/18 21:04 Resp 15 04/27/18 20:00 BP 165/87 04/27/18 20:00 Pulse Ox 93 L 04/27/18 20:00 Intake & Output 04/27/18 04/27/18 04/28/18 06:59 18:59 06:59 Intake Total 960 Output Total 400 725 Balance -400 235 Intake: Oral 960 Output: Urine 400 725 Other: Voiding Method Indwelling Catheter # Voids 1 2 - Exam GENERAL: The patient is alert and oriented x3, not in any acute distress. Well developed, well nourished. HEENT: Pupils are round and equally reacting to light. EOMI. No scleral icterus. No conjunctival pallor. Normocephalic, atraumatic. No pharyngeal erythema. No thyromegaly. CARDIOVASCULAR: S1 and S2 present. No murmurs, rubs, or gallops. PULMONARY: Coarse breath sounds bilaterally. Mild crackles at the lower lung bases. ABDOMEN: Soft, nontender, nondistended, normoactive bowel sounds. No palpable organomegaly. MUSCULOSKELETAL: No joint swelling or deformity. EXTREMITIES; Bilateral pedal edema. NEUROLOGICAL: Gross neurological examination did not reveal any focal deficits. SKIN: No rashes. - Labs CBC & Chem 7: 04/28/18 05:51 04/28/18 05:51 Labs: Abnormal Lab Results - Last 24 Hours (Table) 04/27/18 04/27/18 04/27/18 Range/Units 02:13 06:03 06:30 RBC 3.47 L (3.80-5.40) m/uL Hgb 10.6 L (11.4-16.0) gm/dL Hct 33.7 L (34.0-46.0) % Sodium (137-145) mmol/L Potassium (3.5-5.1) mmol/L BUN (7-17) mg/dL Creatinine (0.52-1.04) mg/dL Glucose (74-99) mg/dL POC Glucose (mg/dL) 265 H 272 H (75-99) mg/dL 04/27/18 04/27/18 04/27/18 Range/Units 06:30 11:27 16:53 RBC (3.80-5.40) m/uL Hgb (11.4-16.0) gm/dL Hct (34.0-46.0) % Sodium 133 L (137-145) mmol/L Potassium 5.5 H (3.5-5.1) mmol/L BUN 60 H (7-17) mg/dL Creatinine 1.77 H (0.52-1.04) mg/dL Glucose 262 H (74-99) mg/dL POC Glucose (mg/dL) 293 H 316 H (75-99) mg/dL 04/27/18 Range/Units 20:27 RBC (3.80-5.40) m/uL Hgb (11.4-16.0) gm/dL Hct (34.0-46.0) % Sodium (137-145) mmol/L Potassium (3.5-5.1) mmol/L BUN (7-17) mg/dL Creatinine (0.52-1.04) mg/dL Glucose (74-99) mg/dL POC Glucose (mg/dL) 284 H (75-99) mg/dL Microbiology - Last 24 Hours (Table) 04/26/18 10:25 Gram Stain - Preliminary Sputum Sputum Culture - Preliminary Rosa albicans 04/23/18 21:11 Blood Culture - Preliminary Blood No Growth after 72 hours Assessment and Plan Assessment: Acute hypoxemic respiratory failure secondary to influenza A infection Acute exacerbation of chronic obstructive pulmonary disease Acute exacerbation of diastolic congestive heart failure. Elevated troponins, suspicious for non-STEMI Sepsis secondary to influenza pneumonia with possible superimposed bacterial infection Acute kidney injury Recent history of diabetic right foot ulcer and osteomyelitis,not on antibiotics Peripheral vascular disease with previous PRIMARY SUBSTANCE ABUSE COUNSELOR of the right SFA in March 2018. Diabetes mellitus Hypertension Hyperlipidemia Hypothyroidism History of sleep apnea Morbid obesity Plan: We'll continue with oxygen therapy, antibiotic and Tamiflu. Labs and medication were reviewed. Continue same treatment. Continue with symptomatic treatment. Monitor lytes and CBC. DVT and GI prophylaxis. Further recommendations depending on the clinical course of the patient.
--- NOTE | 2018-04-28 23:19 | P.PN ---
Subjective Progress Note Date: 04/28/18 Principal diagnosis: Influenza A, CHF and COPD Exacerbation. Ms. Thrasher is a 67-year-old female with a past medical history of COPD, diabetes mellitus, provider, hyperlipidemia, hypertension, arthritis, obstructive sleep apnea, recent history of diabetic foot ulcer and osteomyelitis, hypothyroidism, diabetic neuropathy admitted to the hospital with generalized myalgia and dry cough. Patient has been tested positive for influenza A and she was also found to have possible retrocardiac left lower lobe infiltrate and so admitted for further management. On 04/28/2018- Patient is sitting up in a chair by the bedside appears to be no acute distress. No active overnight issues reported by the nursing staff. She still c/o swelling in her bilateral LE. On review of systems -patient states her breathing is improving day by day. She also reports less cough compared to yesterday. Patient denies having any fevers chills or rigors. She denies having any abdominal pain nausea vomiting or diarrhea. She denies dysuria or hematuria. She complains of mild lower extremity swelling bilaterally. Active Medications Albuterol/Ipratropium (Duoneb 0.5 Mg-3 Mg/3 Ml Soln) 3 ml INHALATION RT-QID REPLACED BY [facility] Last Admin: 04/28/18 19:31 Dose: Not Given Documented by: Albuterol/Ipratropium (Duoneb 0.5 Mg-3 Mg/3 Ml Soln) 3 ml INHALATION RT-Q2H PRN PRN Reason: Shortness Of Breath Or Wheezing Amlodipine Besylate (Norvasc) 5 mg PO DAILY REPLACED BY [facility] Last Admin: 04/28/18 08:45 Dose: 5 mg Documented by: Atorvastatin Calcium (Lipitor) 40 mg PO DAILY REPLACED BY [facility] Last Admin: 04/28/18 08:45 Dose: 40 mg Documented by: Budesonide/Formoterol Fumarate (Symbicort 160-4.5 Mcg Inhaler) 2 puff INHALATION RT-BID REPLACED BY [facility] Last Admin: 04/28/18 19:31 Dose: Not Given Documented by: Clopidogrel Bisulfate (Plavix) 75 mg PO DAILY REPLACED BY [facility] Last Admin: 04/28/18 08:45 Dose: 75 mg Documented by: Enoxaparin Sodium (Lovenox) 30 mg SQ DAILY REPLACED BY [facility] Last Admin: 04/28/18 08:45 Dose: 30 mg Documented by: Furosemide (Lasix) 40 mg IV DAILY REPLACED BY [facility] Last Admin: 04/28/18 16:18 Dose: 40 mg Documented by: Insulin Aspart (Novolog) 0 unit SQ [id number] [facility]; Protocol Last Admin: 04/28/18 21:20 Dose: 4 unit Documented by: Insulin Detemir (Levemir) 60 unit SQ BID REPLACED BY [facility] Last Admin: 04/28/18 21:19 Dose: 60 unit Documented by: Miscellaneous Information (Pneumonia Protocol Utilized) 1 each PO ONCE PRN PRN Reason: Per Protocol Miscellaneous Information (Magnesium Per Protocol) 1 each MISCELLANE DAILY PRN; Protocol PRN Reason: Per Protocol Morphine Sulfate (Morphine Sulfate (Inj)) 2 mg IVP Q4HR PRN PRN Reason: Pain Last Admin: 04/28/18 23:01 Dose: 2 mg Documented by: Naloxone HCl (Narcan) 0.2 mg IV Q2M PRN PRN Reason: Opioid Reversal Sodium Chloride (Deep Sea) 2 spray NASAL QID PRN PRN Reason: Dry Nasal Passages Objective - Vital Signs Vital signs: Vital Signs Temp 98 F 04/28/18 15:43 Pulse 85 04/28/18 15:43 Resp 20 04/28/18 15:43 BP 149/64 04/28/18 15:43 Pulse Ox 91 L 04/28/18 15:43 Intake & Output 04/27/18 04/28/18 04/28/18 18:59 06:59 18:59 Intake Total 960 840 Output Total 725 Balance 235 840 Weight 140.5 kg Intake: Oral 960 840 Output: Urine 725 Other: Voiding Method Indwelling Catheter Incontinent # Voids 2 - Exam GENERAL: The patient is alert and oriented x3, not in any acute distress. Obese. HEENT: Pupils are round and equally reacting to light. EOMI. No scleral icterus. No conjunctival pallor. Normocephalic, atraumatic. No pharyngeal erythema. No thyromegaly. CARDIOVASCULAR: S1 and S2 present. No murmurs, rubs, or gallops. PULMONARY: Coarse breath sounds bilaterally. Mild crackles at the lower lung bases. ABDOMEN: Soft, nontender, nondistended, normoactive bowel sounds. Thick abdominal wall and morbidly obese. MUSCULOSKELETAL: No joint swelling or deformity. EXTREMITIES; Bilateral pedal edema. Positive for mild tenderness on palpation. NEUROLOGICAL: Gross neurological examination did not reveal any focal deficits. SKIN: No rashes. - Labs CBC & Chem 7: 04/28/18 05:51 04/28/18 05:51 Labs: Abnormal Lab Results - Last 24 Hours (Table) 04/27/18 04/28/18 04/28/18 Range/Units 20:27 02:21 05:51 RBC 3.49 L (3.80-5.40) m/uL Hgb 10.3 L (11.4-16.0) gm/dL Hct 33.5 L (34.0-46.0) % MCHC 30.6 L (31.0-37.0) g/dL Sodium (137-145) mmol/L Potassium (3.5-5.1) mmol/L BUN (7-17) mg/dL Creatinine (0.52-1.04) mg/dL Glucose (74-99) mg/dL POC Glucose (mg/dL) 284 H 209 H (75-99) mg/dL 04/28/18 04/28/18 04/28/18 Range/Units 05:51 06:19 11:45 RBC (3.80-5.40) m/uL Hgb (11.4-16.0) gm/dL Hct (34.0-46.0) % MCHC (31.0-37.0) g/dL Sodium 133 L (137-145) mmol/L Potassium 5.7 H (3.5-5.1) mmol/L BUN 59 H (7-17) mg/dL Creatinine 1.51 H (0.52-1.04) mg/dL Glucose 235 H (74-99) mg/dL POC Glucose (mg/dL) 228 H 264 H (75-99) mg/dL 04/28/18 Range/Units 16:43 RBC (3.80-5.40) m/uL Hgb (11.4-16.0) gm/dL Hct (34.0-46.0) % MCHC (31.0-37.0) g/dL Sodium (137-145) mmol/L Potassium (3.5-5.1) mmol/L BUN (7-17) mg/dL Creatinine (0.52-1.04) mg/dL Glucose (74-99) mg/dL POC Glucose (mg/dL) 246 H (75-99) mg/dL Microbiology - Last 24 Hours (Table) 04/26/18 10:25 Gram Stain - Final Sputum Sputum Culture - Final Rosa albicans 04/23/18 21:11 Blood Culture - Preliminary Blood No Growth after 96 hours Assessment and Plan Assessment: Acute hypoxemic respiratory failure secondary to influenza A infection Acute exacerbation of chronic obstructive pulmonary disease Acute exacerbation of diastolic congestive heart failure. Elevated troponins, suspicious for non-STEMI Sepsis secondary to influenza pneumonia with possible superimposed bacterial infection Acute kidney injury Hyperkalemia Recent history of diabetic right foot ulcer and osteomyelitis,not on antibiotics Peripheral vascular disease with previous CABIN EQUIPMENT SUPERVISOR of the right SFA in March 2018. Diabetes mellitus Hypertension Hyperlipidemia Hypothyroidism History of sleep apnea Morbid obesity Plan: Pt has been started on IV Lasix by Nephrology as she still has LE edema. We'll continue with oxygen therapy, antibiotic and Tamiflu. Labs and medication were reviewed. Continue same treatment. Continue with symptomatic treatment. Monitor lytes and CBC. DVT and GI prophylaxis. Further recommendations depending on the clinical course of the patient. Anticipate discharge in the next 24-48 hrs.
[2018-04-29 02:11] LABS: Glucose,Whole Blood 224 mg/dL (75-99)
[2018-04-29] MEDS: INSULIN ASPART (NovoLOG) 100 UNIT/ML VIAL SQ SCH ×5 (03:38→21:42)
[2018-04-29 06:09] LABS: Glucose,Whole Blood 169 mg/dL (75-99)
[2018-04-29 06:22] LABS: Basophils # (A) 0.1 k/uL (0-0.2); Basophils % (A) 1 %; Eosinophils # (A) 0.3 k/uL (0-0.7); Eosinophils % (A) 3 %; HCT 34.4 % (34.0-46.0); HGB 10.7 gm/dL (11.4-16.0); Lymphocytes # (A) 2.3 k/uL (1.0-4.8); Lymphocytes % (A) 26 %; MCH 29.2 pg (25.0-35.0); MCHC 31.2 g/dL (31.0-37.0); MCV 93.6 fL (80.0-100.0); Mean Platelet Volume 7.8; Monocytes # (A) 0.6 k/uL (0-1.0); Monocytes % (A) 6 %; Neutrophils # (A) 5.5 k/uL (1.3-7.7); Neutrophils % (A) 61 %; Platelet Count 249 k/uL (150-450); RBC 3.67 m/uL (3.80-5.40); RDW 13.8 % (11.5-15.5); WBC 8.9 k/uL (3.8-10.6)
[2018-04-29 06:33] LABS: Calcium 9.4 mg/dL (8.4-10.2); Potassium 5.4 mmol/L (3.5-5.1)
[2018-04-29] MEDS: amLODIPine 5 MG TAB PO SCH (08:50)
[2018-04-29] MEDS: FUROSEMIDE 10 MG/ML 4 ML VIAL IV SCH (08:50)
[2018-04-29] MEDS: CLOPIDOGREL 75 MG TAB PO SCH (08:50)
[2018-04-29] MEDS: ENOXAPARIN 30 MG/0.3 ML SYRINGE SQ SCH (08:50)
[2018-04-29] MEDS: ATORVASTATIN 40 MG TAB PO SCH (08:50)
[2018-04-29] MEDS: INSULIN DETEMIR (LEVEMIR) 100 UNIT/ML SYR SQ SCH ×2 (08:50→21:41)
--- NOTE | 2018-04-29 09:22 | P.PN ---
Subjective Patient is seen in follow-up for acute kidney injury. Renal function continues to improve. Admits to good urine output. No chest pain or shortness of breath. No cough. Vital signs are stable. General: The patient appeared well nourished and normally developed. HEENT: Head exam is unremarkable. Neck is without jugular venous distension. LUNGS: Breath sounds decreased. HEART: Rate and Rhythm are regular. First and second heart sounds normal. No murmurs, rubs or gallops. ABDOMEN: Abdominal exam reveals normal bowel sounds. Non-tender and non- distended. No evidence of peritonitis. EXTREMITITES: Trace edema. Chronic changes noted. Objective - Vital Signs Vital signs: Vital Signs Temp 98.3 F 04/29/18 00:28 Pulse 81 04/29/18 04:12 Resp 20 04/29/18 04:12 BP 153/76 04/29/18 04:12 Pulse Ox 93 L 04/29/18 04:12 Intake & Output 04/28/18 04/29/18 04/29/18 18:59 06:59 18:59 Intake Total 1320 180 Output Total 200 Balance 1120 180 Weight 139 kg Intake: Oral 1320 180 Output: Urine 200 Other: Voiding Method Incontinent Bedside Commode # Voids 1 - Labs CBC & Chem 7: 04/29/18 05:50 04/29/18 05:50 Labs: Abnormal Lab Results - Last 24 Hours (Table) 04/28/18 04/28/18 04/28/18 Range/Units 11:45 16:43 20:53 RBC (3.80-5.40) m/uL Hgb (11.4-16.0) gm/dL Sodium (137-145) mmol/L Potassium (3.5-5.1) mmol/L BUN (7-17) mg/dL Creatinine (0.52-1.04) mg/dL Glucose (74-99) mg/dL POC Glucose (mg/dL) 264 H 246 H 269 H (75-99) mg/dL 04/29/18 04/29/18 04/29/18 Range/Units 02:09 05:50 05:50 RBC 3.67 L (3.80-5.40) m/uL Hgb 10.7 L (11.4-16.0) gm/dL Sodium 136 L (137-145) mmol/L Potassium 5.4 H (3.5-5.1) mmol/L BUN 58 H (7-17) mg/dL Creatinine 1.35 H (0.52-1.04) mg/dL Glucose 184 H (74-99) mg/dL POC Glucose (mg/dL) 224 H (75-99) mg/dL 04/29/18 Range/Units 06:07 RBC (3.80-5.40) m/uL Hgb (11.4-16.0) gm/dL Sodium (137-145) mmol/L Potassium (3.5-5.1) mmol/L BUN (7-17) mg/dL Creatinine (0.52-1.04) mg/dL Glucose (74-99) mg/dL POC Glucose (mg/dL) 169 H (75-99) mg/dL Microbiology - Last 24 Hours (Table) 04/23/18 21:11 Blood Culture - Preliminary Blood No Growth after 120 hours 04/26/18 10:25 Gram Stain - Final Sputum Sputum Culture - Final Rosa albicans Assessment and Plan Plan: Assessment: 1. Acute kidney injury mostly prerenal secondary to hypotension and infection. Improving. Creatinine down to 1.35 today. Baseline creatinine near 1. 2. Hyperkalemia secondary to acute kidney injury and hyperglycemia. 3. Influenza A status post Tamiflu. 4. Pneumonia maintained on antibiotics. 5. Insulin-dependent diabetes mellitus. 6. Benign hypertension. Controlled. 7. Volume overload. Improving with diuretics. Plan: Maintain Lasix 40 mg IV once daily. Maintain low potassium diet. Avoid nephrotoxins. Repeat electrolytes the morning.
[2018-04-29] MEDS: SYMBICORT 160-4.5 MCG INHALER INHALATION SCH ×2 (09:54→20:49)
[2018-04-29] MEDS: IPRATROPIUM-ALBUTEROL 3 ML NEB INHALATION SCH ×4 (09:55→20:49)
[2018-04-29 11:22] LABS: Glucose,Whole Blood 225 mg/dL (75-99)
[2018-04-29] MEDS ORDERED: COLLAGENASE 250 UNIT/GM OINTMENT 30 GM TUBE TOPICAL SCH (14:30)
[2018-04-29] MEDS: MORPHINE SULFATE 2 MG/ML SYRINGE IVP PRN ×2 (15:18→23:03)
[2018-04-29 16:28] LABS: Glucose,Whole Blood 247 mg/dL (75-99)
--- NOTE | 2018-04-29 17:24 | P.PN ---
Subjective Progress Note Date: 04/29/18 Principal diagnosis: Hypoxemic respiratory failure, multifactorial, related to acute exacerbation of chronic obstructive pulmonary disease, fluid volume overload, and possible myoca rdial ischemia, influenza A infection 57-year-old white female patient who was admitted to the hospital on 04/23/2018 with complaints of weakness, altered mentation, fever, as of breath and cough. Initial chest x-ray showed prominent interstitial pattern symmetrically obscuring the pulmonary vasculature, suspicious for pulmonary edema, consolidation in the retrocardiac left lower lobe, could be related to left lower lobe bronchopneumonia. Patient was also hypoxemic, and at one point she was even on high flow oxygen per [facility], in the intensive care unit, today on 04/29/2018 patient is seen in follow-up on selective care unit, she is awake and alert, in no acute distress. Room air pulse ox 93%, afebrile, hemodynamically stable, denies any chest pain, lung sounds reveal basilar crackles. Patient states from a breathing standpoint she is breathing easier, however she still has significant lower extremity edema, currently on IV Lasix at 40 mg daily, she is incontinent of large amount of urine, she does have an external catheter, which tends to leak at times, her weight is trending down, down by 1.1 kg in the last 24 hours. Blood and urine cultures showed no growth, sputum culture with Rosa albicans only. Today's labs have been noted, white blood cell count is 8.9, hemoglobin is 10.7, sodium is 136, potassium is 5.4, chloride is 104, CO2 24, BUN is 58 and creatinine is 1.35. Patient has chronic wound on the right lower extremity, for which she follows at the wound care clinic. Patient follows with Dr. Zhou at the wound care clinic, and apparently her usual treatment is Santyl and a dry dressing. ALLERGIES are Roel wrapped, and there is 2+ lower extremity edema. Objective - Vital Signs Vital signs: Vital Signs Temp 98.1 F 04/29/18 12:00 Pulse 88 04/29/18 17:10 Resp 18 04/29/18 12:00 BP 142/72 04/29/18 12:00 Pulse Ox 93 L 04/29/18 12:00 Intake & Output 04/28/18 04/29/18 04/29/18 18:59 06:59 18:59 Intake Total 1320 402 Output Total 200 Balance 1120 402 Weight 139 kg Intake: Oral 1320 402 Output: Urine 200 Other: Voiding Method Incontinent Bedside Commode Bedside Commode # Voids 1 - Exam GENERAL EXAM: Alert, pleasant, 57-year-old obese white female, on room air, comfortable in no apparent distress. HEAD: Normocephalic/atraumatic. EYES: Normal reaction of pupils, equal size. Conjunctiva pink, sclera white. NOSE: Clear with pink turbinates. THROAT: No erythema or exudates. NECK: No masses, no JVD, no thyroid enlargement, no adenopathy. CHEST: No chest wall deformity. Symmetrical expansion. LUNGS: Equal air entry with no crackles, wheeze, rhonchi or dullness. CVS: Regular rate and rhythm, normal S1 and S2, no gallops, no murmurs, no rubs ABDOMEN: Soft, nontender. No hepatosplenomegaly, normal bowel sounds, no guarding or rigidity. EXTREMITIES: No clubbing, no cyanosis, 2+ pulses and upper and lower extremities. 2+ lower extremity edema, with the chronic venous stasis changes in lower extremities, Lotrimin is are Roel wrapped, and her daughters 2+ pitting edema, and a chronic wound on the right foot, covered with a dressing MUSCULOSKELETAL: Muscle strength and tone normal. SPINE: No scoliosis or deformity SKIN: No rashes CENTRAL NERVOUS SYSTEM: Alert and oriented -3. No focal deficits, tone is normal in all 4 extremities. PSYCHIATRIC: Alert and oriented -3. Appropriate affect. Intact judgment and insight. - Labs CBC & Chem 7: 04/29/18 05:50 04/29/18 05:50 Labs: Abnormal Lab Results - Last 24 Hours (Table) 04/28/18 04/29/18 04/29/18 Range/Units 20:53 02:09 05:50 RBC 3.67 L (3.80-5.40) m/uL Hgb 10.7 L (11.4-16.0) gm/dL Sodium (137-145) mmol/L Potassium (3.5-5.1) mmol/L BUN (7-17) mg/dL Creatinine (0.52-1.04) mg/dL Glucose (74-99) mg/dL POC Glucose (mg/dL) 269 H 224 H (75-99) mg/dL 04/29/18 04/29/18 04/29/18 Range/Units 05:50 06:07 11:21 RBC (3.80-5.40) m/uL Hgb (11.4-16.0) gm/dL Sodium 136 L (137-145) mmol/L Potassium 5.4 H (3.5-5.1) mmol/L BUN 58 H (7-17) mg/dL Creatinine 1.35 H (0.52-1.04) mg/dL Glucose 184 H (74-99) mg/dL POC Glucose (mg/dL) 169 H 225 H (75-99) mg/dL 04/29/18 Range/Units 16:27 RBC (3.80-5.40) m/uL Hgb (11.4-16.0) gm/dL Sodium (137-145) mmol/L Potassium (3.5-5.1) mmol/L BUN (7-17) mg/dL Creatinine (0.52-1.04) mg/dL Glucose (74-99) mg/dL POC Glucose (mg/dL) 247 H (75-99) mg/dL Microbiology - Last 24 Hours (Table) 04/23/18 21:11 Blood Culture - Preliminary Blood No Growth after 120 hours Assessment and Plan Plan: Assessment: #1 Acute hypoxemic respiratory failure secondary to influenza A infection with an acute exacerbation of chronic obstructive pulmonary disease and acute exacerbation of diastolic congestive heart failure. Troponin leak felt to be secondary to acute renal failure. #2 History of chronic obstructive pulmonary disease. #3 Morbid obesity. #4 Diabetes mellitus with steroid-induced hyperglycemia. #5 Fibromyalgia. #6 Hyperlipidemia. #7 Hypertension. #8 Degenerative joint disease. #9 History of obstructive sleep apnea syndrome. #10 Hypothyroidism. #11 Macular degeneration. #12 Stress urinary incontinence. 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 Plan: Continue the IV diuretics, patient is breathing easier, she is off the oxygen, however she still has significant lower extremity edema. Completed her course of Tamiflu, blood, urine and sputum cultures show no growth, other than the Rosa albicans in the sputum. Assessment stable, no fever or chills, no complaints of chest pain. Continue with nebulized treatments, Symbicort. We'll profile is improving, resected as tolerated, I performed a history & physical examination of the patient and discussed their management with my nurse practitioner, Chiquita Bray. I reviewed the nurse practitioner's note and agree with the documented findings and plan of care. Lung sounds are positive for a few bibasilar crackles. The findings and the impression was discussed with the patient. I attest to the documentation by the nurse practitioner. Time with Patient: Less than 30
[2018-04-29] MEDS: COLLAGENASE 250 UNIT/GM OINTMENT 30 GM TUBE TOPICAL SCH (17:37)
[2018-04-29 20:13] LABS: Glucose,Whole Blood 292 mg/dL (75-99)
--- NOTE | 2018-04-29 21:22 | CONS ---
DATE OF CONSULTATION: 04/29/2018 This is a 57-year-old white female. She is known to me from the wound clinic. The patient had a fourth ray amputation done for infected wound. She has been coming to the Wound Clinic on a regular basis. PAST MEDICAL HISTORY: History of diabetes mellitus, history of hypertension, history of sleep apnea. The patient also has been admitted because of acute pulmonary edema versus congestion. PHYSICAL EXAMINATION: Patient was seen in her room. She is in sitting position. She is very short of breath. She has marked swelling of the right lower extremity. First and second sounds normal. Chest ( ) in the lung. Femorals are 2+. The patient has marked swelling of the right lower extremity, post amputation right foot fourth toe. There is no evidence of any infection. PLAN: We will use Santyl cream for the local wound care on daily basis. The patient will be followed in the wound clinic next week. I will follow with you. DON / EMILEE: [phone] / ALTAGRACIA
--- NOTE | 2018-04-29 23:08 | P.PN ---
Subjective Progress Note Date: 04/29/18 Principal diagnosis: Influenza A, CHF and COPD Exacerbation. Ms. Thrasher is a 67-year-old female with a past medical history of COPD, diabetes mellitus, provider, hyperlipidemia, hypertension, arthritis, obstructive sleep apnea, recent history of diabetic foot ulcer and osteomyelitis, hypothyroidism, diabetic neuropathy admitted to the hospital with generalized myalgia and dry cough. Patient has been tested positive for influenza A and she was also found to have possible retrocardiac left lower lobe infiltrate and so admitted for further management. On 04/29/2018- Patient is sitting up in a chair by the bedside appears to be no acute distress. No active overnight issues reported by the nursing staff. She states that she just had a bowel movement and feels better now. She still has LE edema. Over all reports has she feels less short of breath. Active Medications Albuterol/Ipratropium (Duoneb 0.5 Mg-3 Mg/3 Ml Soln) 3 ml INHALATION RT-QID [facility] Last Admin: 04/29/18 20:49 Dose: 3 ml Documented by: Albuterol/Ipratropium (Duoneb 0.5 Mg-3 Mg/3 Ml Soln) 3 ml INHALATION RT-Q2H PRN PRN Reason: Shortness Of Breath Or Wheezing Amlodipine Besylate (Norvasc) 5 mg PO DAILY [facility] Last Admin: 04/29/18 08:50 Dose: 5 mg Documented by: Atorvastatin Calcium (Lipitor) 40 mg PO DAILY [facility] Last Admin: 04/29/18 08:50 Dose: 40 mg Documented by: Budesonide/Formoterol Fumarate (Symbicort 160-4.5 Mcg Inhaler) 2 puff INHALATION RT-BID [facility] Last Admin: 04/29/18 20:49 Dose: 2 puff Documented by: Clopidogrel Bisulfate (Plavix) 75 mg PO DAILY [facility] Last Admin: 04/29/18 08:50 Dose: 75 mg Documented by: Collagenase (Santyl) 1 applic TOPICAL DAILY [facility] Last Admin: 04/29/18 17:37 Dose: 1 applic Documented by: Enoxaparin Sodium (Lovenox) 40 mg SQ DAILY [facility] Furosemide (Lasix) 40 mg IV DAILY [facility] Last Admin: 04/29/18 08:50 Dose: 40 mg Documented by: Insulin Aspart (Novolog) 0 unit SQ [id number] [facility]; Protocol Last Admin: 04/29/18 21:42 Dose: 5 unit Documented by: Insulin Detemir (Levemir) 60 unit SQ BID [facility] Last Admin: 04/29/18 21:41 Dose: 60 unit Documented by: Miscellaneous Information (Pneumonia Protocol Utilized) 1 each PO ONCE PRN PRN Reason: Per Protocol Miscellaneous Information (Magnesium Per Protocol) 1 each MISCELLANE DAILY PRN; Protocol PRN Reason: Per Protocol Morphine Sulfate (Morphine Sulfate (Inj)) 2 mg IVP Q4HR PRN PRN Reason: Pain Last Admin: 04/29/18 23:03 Dose: 2 mg Documented by: Naloxone HCl (Narcan) 0.2 mg IV Q2M PRN PRN Reason: Opioid Reversal Sodium Chloride (Deep Sea) 2 spray NASAL QID PRN PRN Reason: Dry Nasal Passages Objective - Vital Signs Vital signs: Vital Signs Temp 98.1 F 04/29/18 12:00 Pulse 83 04/29/18 12:00 Resp 18 04/29/18 12:00 BP 142/72 04/29/18 12:00 Pulse Ox 93 L 04/29/18 12:00 Intake & Output 04/28/18 04/29/18 04/29/18 18:59 06:59 18:59 Intake Total 1320 402 Output Total 200 Balance 1120 402 Weight 139 kg Intake: Oral 1320 402 Output: Urine 200 Other: Voiding Method Incontinent Bedside Commode Bedside Commode # Voids 1 - Exam GENERAL: morbidly obese HEENT: Pupils are round and equally reacting to light. EOMI. No scleral icterus. No conjunctival pallor. Normocephalic, atraumatic. No pharyngeal erythema. No thyromegaly. CARDIOVASCULAR: S1 and S2 present. No murmurs, rubs, or gallops. PULMONARY: Coarse breath sounds bilaterally. Mild crackles at the lower lung bases. ABDOMEN: Soft, nontender, nondistended, normoactive bowel sounds. Thick abdominal wall and morbidly obese. MUSCULOSKELETAL: No joint swelling or deformity. EXTREMITIES; Bilateral pedal edema. Positive for mild tenderness on palpation. NEUROLOGICAL: Gross neurological examination did not reveal any focal deficits. - Labs CBC & Chem 7: 04/29/18 05:50 04/29/18 05:50 Labs: Abnormal Lab Results - Last 24 Hours (Table) 03/04/28/18 04/29/18 Range/Units 16:43 20:53 02:09 RBC (3.80-5.40) m/uL Hgb (11.4-16.0) gm/dL Sodium (137-145) mmol/L Potassium (3.5-5.1) mmol/L BUN (7-17) mg/dL Creatinine (0.52-1.04) mg/dL Glucose (74-99) mg/dL POC Glucose (mg/dL) 246 H 269 H 224 H (75-99) mg/dL 04/29/18 04/29/18 04/29/18 Range/Units 05:50 05:50 06:07 RBC 3.67 L (3.80-5.40) m/uL Hgb 10.7 L (11.4-16.0) gm/dL Sodium 136 L (137-145) mmol/L Potassium 5.4 H (3.5-5.1) mmol/L BUN 58 H (7-17) mg/dL Creatinine 1.35 H (0.52-1.04) mg/dL Glucose 184 H (74-99) mg/dL POC Glucose (mg/dL) 169 H (75-99) mg/dL 04/29/18 Range/Units 11:21 RBC (3.80-5.40) m/uL Hgb (11.4-16.0) gm/dL Sodium (137-145) mmol/L Potassium (3.5-5.1) mmol/L BUN (7-17) mg/dL Creatinine (0.52-1.04) mg/dL Glucose (74-99) mg/dL POC Glucose (mg/dL) 225 H (75-99) mg/dL Microbiology - Last 24 Hours (Table) 04/23/18 21:11 Blood Culture - Preliminary Blood No Growth after 120 hours Assessment and Plan Assessment: ASSESSMENT Acute hypoxemic respiratory failure secondary to influenza A infection Acute exacerbation of chronic obstructive pulmonary disease Acute exacerbation of diastolic congestive heart failure. Elevated troponins, suspicious for non-STEMI Sepsis secondary to influenza pneumonia with possible superimposed bacterial infection Acute kidney injury Hyperkalemia Recent history of diabetic right foot ulcer and osteomyelitis,not on antibiotics Peripheral vascular disease with previous BEAM SEALER of the right SFA in March 2018. Diabetes mellitus Hypertension Hyperlipidemia Hypothyroidism History of sleep apnea Morbid obesity Plan: Pt has been started on IV Lasix by Nephrology as she still has LE edema. She completed her course of Tamiflu. Labs and medication were reviewed. Continue same treatment. Continue with symptomatic treatment. Monitor lytes and CBC. DVT and GI prophylaxis. Further recommendations depending on the clinical course of the patient. Anticipate discharge in the next 24-48 hrs.
[2018-04-30 02:03] LABS: Glucose,Whole Blood 247 mg/dL (75-99)
[2018-04-30] MEDS: INSULIN ASPART (NovoLOG) 100 UNIT/ML VIAL SQ SCH ×6 (03:34→21:14)
[2018-04-30 06:03] LABS: Glucose,Whole Blood 193 mg/dL (75-99)
[2018-04-30 07:04] LABS: Calcium 9.4 mg/dL (8.4-10.2); Magnesium 1.8 mg/dL (1.6-2.3)
[2018-04-30] MEDS: ATORVASTATIN 40 MG TAB PO SCH (09:10)
[2018-04-30] MEDS: CLOPIDOGREL 75 MG TAB PO SCH (09:10)
[2018-04-30] MEDS: amLODIPine 5 MG TAB PO SCH (09:10)
[2018-04-30] MEDS: INSULIN DETEMIR (LEVEMIR) 100 UNIT/ML SYR SQ SCH ×2 (09:10→21:14)
[2018-04-30] MEDS: COLLAGENASE 250 UNIT/GM OINTMENT 30 GM TUBE TOPICAL SCH (09:10)
[2018-04-30] MEDS: ENOXAPARIN 40 MG/0.4 ML SYRINGE SQ SCH (09:10)
[2018-04-30] MEDS: FUROSEMIDE 10 MG/ML 4 ML VIAL IV SCH (09:10)
--- NOTE | 2018-04-30 10:43 | P.PN ---
Subjective Patient is seen in follow-up for acute kidney injury. Renal function continues to improve. Admits to good urine output. No chest pain or shortness of breath. No cough. Does have swelling in her lower extremities. Vital signs are stable. General: The patient appeared well nourished and normally developed. HEENT: Head exam is unremarkable. Neck is without jugular venous distension. LUNGS: Breath sounds decreased. HEART: Rate and Rhythm are regular. First and second heart sounds normal. No murmurs, rubs or gallops. ABDOMEN: Abdominal exam reveals normal bowel sounds. Non-tender and non- distended. No evidence of peritonitis. EXTREMITITES: 1+ edema. Chronic changes noted. Objective - Vital Signs Vital signs: Vital Signs Temp 98.3 F 04/29/18 20:50 Pulse 82 04/30/18 04:20 Resp 20 04/30/18 04:20 BP 159/80 04/30/18 04:20 Pulse Ox 93 L 04/30/18 04:20 Intake & Output 04/29/18 04/30/18 04/30/18 18:59 06:59 18:59 Intake Total 642 240 Balance 642 240 Weight 138.9 kg Intake: Oral 642 240 Other: Voiding Method Bedside Commode - Labs CBC & Chem 7: 04/29/18 05:50 04/30/18 05:39 Labs: Abnormal Lab Results - Last 24 Hours (Table) 04/29/18 04/29/18 04/29/18 Range/Units 11:21 16:27 20:11 Sodium (137-145) mmol/L BUN (7-17) mg/dL Creatinine (0.52-1.04) mg/dL Glucose (74-99) mg/dL POC Glucose (mg/dL) 225 H 247 H 292 H (75-99) mg/dL 04/30/18 04/30/18 04/30/18 Range/Units 02:02 05:39 06:01 Sodium 135 L (137-145) mmol/L BUN 56 H (7-17) mg/dL Creatinine 1.17 H (0.52-1.04) mg/dL Glucose 198 H (74-99) mg/dL POC Glucose (mg/dL) 247 H 193 H (75-99) mg/dL Microbiology - Last 24 Hours (Table) 04/23/18 21:11 Blood Culture - Final Blood No Growth after 144 hours Assessment and Plan Plan: Assessment: 1. Acute kidney injury mostly prerenal secondary to hypotension and infection. Improving. Creatinine down to 1. 17 today. Baseline creatinine near 1. 2. Hyperkalemia secondary to acute kidney injury and hyperglycemia. Better. 3. Influenza A status post Tamiflu. 4. Pneumonia maintained on antibiotics. 5. Insulin-dependent diabetes mellitus. 6. Benign hypertension. Controlled. 7. Volume overload. Improving with diuretics. Plan: Maintain Lasix 40 mg IV once daily. I will give her an extra dose this evening. Maintain low potassium diet. Avoid nephrotoxins. Repeat electrolytes the morning.
[2018-04-30] MEDS: SYMBICORT 160-4.5 MCG INHALER INHALATION SCH ×2 (11:14→20:41)
[2018-04-30] MEDS: IPRATROPIUM-ALBUTEROL 3 ML NEB INHALATION SCH ×4 (11:14→20:42)
[2018-04-30 11:42] LABS: Glucose,Whole Blood 208 mg/dL (75-99)
--- NOTE | 2018-04-30 13:02 | P.PN ---
Subjective Progress Note Date: 04/30/18 Principal diagnosis: Hypoxemic respiratory failure, multifactorial, related to acute exacerbation of chronic obstructive pulmonary disease, fluid volume overload, and possible myoca rdial ischemia, influenza A infection 57-year-old white female patient who was admitted to the hospital on 04/23/2018 with complaints of weakness, altered mentation, fever, as of breath and cough. Initial chest x-ray showed prominent interstitial pattern symmetrically obscuring the pulmonary vasculature, suspicious for pulmonary edema, consolidation in the retrocardiac left lower lobe, could be related to left lower lobe bronchopneumonia. Patient was also hypoxemic, and at one point she was even on high flow oxygen per AIR[facility], in the intensive care unit, today on 04/29/2018 patient is seen in follow-up on selective care unit, she is awake and alert, in no acute distress. Room air pulse ox 93%, afebrile, hemodynamically stable, denies any chest pain, lung sounds reveal basilar crackles. Patient states from a breathing standpoint she is breathing easier, however she still has significant lower extremity edema, currently on IV Lasix at 40 mg daily, she is incontinent of large amount of urine, she does have an external catheter, which tends to leak at times, her weight is trending down, down by 1.1 kg in the last 24 hours. Blood and urine cultures showed no growth, sputum culture with Rosa albicans only. Today's labs have been noted, white blood cell count is 8.9, hemoglobin is 10.7, sodium is 136, potassium is 5.4, chloride is 104, CO2 24, BUN is 58 and creatinine is 1.35. Patient has chronic wound on the right lower extremity, for which she follows at the wound care clinic. Patient follows with Dr. Zhou at the wound care clinic, and apparently her usual treatment is Santyl and a dry dressing. Lower extremities are Roel wrapped, and there is 2+ lower extremity edema. On 04/30/2018 patient seen in follow-up on selective care unit, sitting up in the recliner, in no acute distress, still has significant lower extremity edema, but weight is improving, patient is incontinent of large amount of urine, it is very difficult to measure the net fluid balance. Lung sounds are clear, no difficulty breathing, patient is on room air, lower extremity wound on the right foot has been dressed, and the patient is being following with vascular surgery. Renal profile is improving, BUN 56, and creatinine is 1.17, sodium is 135, and there is a left are within normal limits. Objective - Vital Signs Vital signs: Vital Signs Temp 98.7 F 04/30/18 08:00 Pulse 84 04/30/18 12:53 Resp 20 04/30/18 08:00 BP 144/83 04/30/18 08:00 Pulse Ox 95 04/30/18 08:00 Intake & Output 04/29/18 04/30/18 04/30/18 18:59 06:59 18:59 Intake Total 642 240 Balance 642 240 Weight 138.9 kg Intake: Oral 642 240 Other: Voiding Method Bedside Commode Bedside Commode - Exam GENERAL EXAM: Alert, pleasant, 57-year-old obese white female, on room air, comfortable in no apparent distress. HEAD: Normocephalic/atraumatic. EYES: Normal reaction of pupils, equal size. Conjunctiva pink, sclera white. NOSE: Clear with pink turbinates. THROAT: No erythema or exudates. NECK: No masses, no JVD, no thyroid enlargement, no adenopathy. CHEST: No chest wall deformity. Symmetrical expansion. LUNGS: Equal air entry with no crackles, wheeze, rhonchi or dullness. CVS: Regular rate and rhythm, normal S1 and S2, no gallops, no murmurs, no rubs ABDOMEN: Soft, nontender. No hepatosplenomegaly, normal bowel sounds, no guarding or rigidity. EXTREMITIES: No clubbing, no cyanosis, 2+ pulses and upper and lower extremities. 2+ lower extremity edema, with the chronic venous stasis changes in lower extremities, Lotrimin is are Roel wrapped, and her daughters 2+ pitting edema, and a chronic wound on the right foot, covered with a dressing MUSCULOSKELETAL: Muscle strength and tone normal. SPINE: No scoliosis or deformity SKIN: No rashes CENTRAL NERVOUS SYSTEM: Alert and oriented -3. No focal deficits, tone is normal in all 4 extremities. PSYCHIATRIC: Alert and oriented -3. Appropriate affect. Intact judgment and insight. - Labs CBC & Chem 7: 04/29/18 05:50 04/30/18 05:39 Labs: Abnormal Lab Results - Last 24 Hours (Table) 04/29/18 04/29/18 04/30/18 Range/Units 16:27 20:11 02:02 Sodium (137-145) mmol/L BUN (7-17) mg/dL Creatinine (0.52-1.04) mg/dL Glucose (74-99) mg/dL POC Glucose (mg/dL) 247 H 292 H 247 H (75-99) mg/dL 04/30/18 04/30/18 04/30/18 Range/Units 05:39 06:01 11:34 Sodium 135 L (137-145) mmol/L BUN 56 H (7-17) mg/dL Creatinine 1.17 H (0.52-1.04) mg/dL Glucose 198 H (74-99) mg/dL POC Glucose (mg/dL) 193 H 208 H (75-99) mg/dL Microbiology - Last 24 Hours (Table) 04/23/18 21:11 Blood Culture - Final Blood No Growth after 144 hours Assessment and Plan Plan: Assessment: #1 Acute hypoxemic respiratory failure secondary to influenza A infection with an acute exacerbation of chronic obstructive pulmonary disease and acute exacerbation of diastolic congestive heart failure. Troponin leak felt to be secondary to acute renal failure. #2 History of chronic obstructive pulmonary disease. #3 Morbid obesity. #4 Diabetes mellitus with steroid-induced hyperglycemia. #5 Fibromyalgia. #6 Hyperlipidemia. #7 Hypertension. #8 Degenerative joint disease. #9 History of obstructive sleep apnea syndrome. #10 Hypothyroidism. #11 Macular degeneration. #12 Stress urinary incontinence. #13 Peripheral vascular disease with previous TUG BOAT ENGINEER of the right SFA in March 2018. Plan: Continue with IV diuretics for another day, patient still has quite a bit of edema in her lower extremities, from pulmonary perspective patient remains stable, no difficulty breathing, lung sounds are clear, she is on room air. Right lower extremity wound is being followed by vascular surgery, no fever or chills. Patient needs to be evaluated by physical therapy. We will follow the patient on as-needed basis. I performed a history & physical examination of the patient and discussed their management with my nurse practitioner, Chiquita Bray. I reviewed the nurse practitioner's note and agree with the documented findings and plan of care. Lung sounds are positive for a few bibasilar crackles. The findings and the impression was discussed with the patient. I attest to the documentation by the nurse practitioner. Time with Patient: Less than 30
[2018-04-30] MEDS: MORPHINE SULFATE 2 MG/ML SYRINGE IVP PRN ×3 (13:06→23:52)
--- NOTE | 2018-04-30 13:12 | PN ---
PROGRESS NOTE This 57-year-old female known to me. 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 Patient has marked swelling of the extremity. The patient came with CHF. The patient has been admitted. PLAN: Plan is we continue with Santyl cream and if discharged from the hospital, patient will follow me in the wound clinic. MMODL / IJN: [id number] /
[2018-04-30 16:52] LABS: Glucose,Whole Blood 265 mg/dL (75-99)
[2018-04-30] MEDS ORDERED: FUROSEMIDE 10 MG/ML 4 ML VIAL IV ONE (18:00)
[2018-04-30 20:33] LABS: Glucose,Whole Blood 284 mg/dL (75-99)
--- NOTE | 2018-05-01 00:30 | P.PN ---
Subjective Progress Note Date: 04/30/18 Principal diagnosis: Influenza A, CHF and COPD Exacerbation. Ms. Thrasher is a 67-year-old female with a past medical history of COPD, diabetes mellitus, provider, hyperlipidemia, hypertension, arthritis, obstructive sleep apnea, recent history of diabetic foot ulcer and oste omyelitis, hypothyroidism, diabetic neuropathy admitted to the hospital with generalized myalgia and dry cough. Patient has been tested positive for influenza A and she was also found to have possible retrocardiac left lower lobe infiltrate and so admitted for further management. On 04/29/2018- Patient is sitting up in a chair by the bedside appears to be no acute distress. No active overnight issues reported by the nursing staff. She states that she just had a bowel movement and feels better now. She still has LE edema. Over all reports has she feels less short of breath. On 04/30/2018 Patient is currently sitting in the chair. Breathing status is improved. Otherwise patient still having significant leg swelling. No fever no chills. Creatinine level I.17 today. Right foot wound dressing changes. Vascular surgery is following. No complaints of chest pain. Continued on IV Lasix 40 mg daily. Current medications reviewed Objective - Vital Signs Vital signs: Vital Signs Temp 98.5 F 04/30/18 21:00 Pulse 87 04/30/18 21:00 Resp 18 04/30/18 21:00 BP 167/77 04/30/18 21:00 Pulse Ox 96 04/30/18 21:00 Intake & Output 04/30/18 04/30/18 05/01/18 06:59 18:59 06:59 Intake Total 800 Output Total 1000 1200 Balance -200 -1200 Weight 138.9 kg Intake: Oral 800 Output: Urine 1000 1200 Other: Voiding Method Indwelling Catheter Indwelling Catheter - Exam PHYSICAL EXAMINATION: Patient is lying in the bed comfortably, no acute distress, awake alert and oriented mild obesity. HEENT: Normocephalic. Neck is supple. Pupils reactive. Nostrils clear. Oral cavity is moist. Ears reveal no drainage. Neck reveals no JVD, carotid bruits, or thyromegaly. CHEST EXAMINATION: Trachea is central. Symmetrical expansion. Bibasilar diminished air entry. No wheezing Lung ruth clear to auscultation and percussion. CARDIAC: Normal S1, S2 with no gallops. No murmurs ABDOMEN: Soft. Bowel sounds normal. No organomegaly. No abdominal bruits. Extremities: 3+ edema. No clubbing or cyanosis Neurologically awake, alert, oriented x3 with well-coordinated movements. No focal deficits noted Skin: No rash or skin lesions. Psychiatric: Coperative. Nonsuicidal Musculoskeletal: No joint swelling or deformity. Normal range of motion. - Labs CBC & Chem 7: 04/29/18 05:50 04/30/18 05:39 Labs: Abnormal Lab Results - Last 24 Hours (Table) 04/30/18 04/30/18 04/30/18 Range/Units 02:02 05:39 06:01 Sodium 135 L (137-145) mmol/L BUN 56 H (7-17) mg/dL Creatinine 1.17 H (0.52-1.04) mg/dL Glucose 198 H (74-99) mg/dL POC Glucose (mg/dL) 247 H 193 H (75-99) mg/dL 04/30/18 04/30/18 04/30/18 Range/Units 11:34 16:47 20:32 Sodium (137-145) mmol/L BUN (7-17) mg/dL Creatinine (0.52-1.04) mg/dL Glucose (74-99) mg/dL POC Glucose (mg/dL) 208 H 265 H 284 H (75-99) mg/dL Microbiology - Last 24 Hours (Table) 04/23/18 21:11 Blood Culture - Final Blood No Growth after 144 hours Assessment and Plan Assessment: Acute hypoxemic respiratory failure secondary to influenza A infection Acute exacerbation of chronic obstructive pulmonary disease Acute exacerbation of diastolic congestive heart failure. Elevated troponins, suspicious for non-STEMI Sepsis secondary to influenza pneumonia with possible superimposed bacterial infection Acute kidney injury Hyperkalemia Recent history of diabetic right foot ulcer and osteomyelitis,not on antibiotics Peripheral vascular disease with previous NURSING TECHNICIAN of the right SFA in March 2018. Diabetes mellitus Hypertension Hyperlipidemia Hypothyroidism History of sleep apnea Morbid obesity Time with Patient: Greater than 30
[2018-05-01 01:53] LABS: Glucose,Whole Blood 320 mg/dL (75-99)
[2018-05-01] MEDS: INSULIN ASPART (NovoLOG) 100 UNIT/ML VIAL SQ SCH ×8 (04:32→21:09)
[2018-05-01 06:09] LABS: Glucose,Whole Blood 237 mg/dL (75-99)
[2018-05-01 08:16] LABS: Basophils # (A) 0.1 k/uL (0-0.2); Basophils % (A) 1 %; Eosinophils # (A) 0.3 k/uL (0-0.7); Eosinophils % (A) 3 %; HCT 35.8 % (34.0-46.0); HGB 10.8 gm/dL (11.4-16.0); Lymphocytes # (A) 2.8 k/uL (1.0-4.8); Lymphocytes % (A) 25 %; MCH 28.6 pg (25.0-35.0); MCHC 30.1 g/dL (31.0-37.0); MCV 94.9 fL (80.0-100.0); Monocytes # (A) 0.7 k/uL (0-1.0); Monocytes % (A) 6 %; Neutrophils # (A) 7.3 k/uL (1.3-7.7); Neutrophils % (A) 65 %; Platelet Count 275 k/uL (150-450); RBC 3.78 m/uL (3.80-5.40); RDW 13.5 % (11.5-15.5); WBC 11.2 k/uL (3.8-10.6)
[2018-05-01] MEDS: ATORVASTATIN 40 MG TAB PO SCH (08:19)
[2018-05-01] MEDS: amLODIPine 5 MG TAB PO SCH (08:19)
[2018-05-01] MEDS: FUROSEMIDE 10 MG/ML 4 ML VIAL IV SCH (08:19)
[2018-05-01] MEDS: ENOXAPARIN 40 MG/0.4 ML SYRINGE SQ SCH (08:19)
[2018-05-01] MEDS: CLOPIDOGREL 75 MG TAB PO SCH (08:19)
[2018-05-01] MEDS: MORPHINE SULFATE 2 MG/ML SYRINGE IVP PRN ×2 (08:23→21:04)
[2018-05-01 08:29] LABS: Calcium 9.4 mg/dL (8.4-10.2); Magnesium 1.7 mg/dL (1.6-2.3)
[2018-05-01] MEDS: IPRATROPIUM-ALBUTEROL 3 ML NEB INHALATION SCH ×4 (10:12→21:43)
[2018-05-01] MEDS: SYMBICORT 160-4.5 MCG INHALER INHALATION SCH ×2 (10:12→21:43)
--- NOTE | 2018-05-01 10:20 | P.PN ---
Subjective Patient is seen in follow-up for acute kidney injury. Renal function has improved since admission. Creatinine stable at 1.22 today. Admits to good urine output. No chest pain or shortness of breath. No cough. Does have swelling in her lower extremities. She is a Leigh catheter in place due to incontinence. Vital signs are stable. General: The patient appeared well nourished and normally developed. HEENT: Head exam is unremarkable. Neck is without jugular venous distension. LUNGS: Breath sounds decreased. HEART: Rate and Rhythm are regular. First and second heart sounds normal. No murmurs, rubs or gallops. ABDOMEN: Abdominal exam reveals normal bowel sounds. Non-tender and non- distended. No evidence of peritonitis. EXTREMITITES: 1+ edema. Chronic changes noted. Objective - Vital Signs Vital signs: Vital Signs Temp 98.5 F 05/01/18 09:00 Pulse 84 05/01/18 10:12 Resp 18 05/01/18 09:00 BP 161/80 05/01/18 09:00 Pulse Ox 93 L 05/01/18 09:00 Intake & Output 04/30/18 05/01/18 05/01/18 18:59 06:59 18:59 Intake Total 800 Output Total 1000 1200 Balance -200 -1200 Weight 136 kg Intake: Oral 800 Output: Urine 1000 1200 Other: Voiding Method Indwelling Catheter Indwelling Catheter Indwelling Catheter - Labs CBC & Chem 7: 05/01/18 06:22 05/01/18 06:22 Labs: Abnormal Lab Results - Last 24 Hours (Table) 04/30/18 04/30/18 04/30/18 Range/Units 11:34 16:47 20:32 WBC (3.8-10.6) k/uL RBC (3.80-5.40) m/uL Hgb (11.4-16.0) gm/dL MCHC (31.0-37.0) g/dL Sodium (137-145) mmol/L BUN (7-17) mg/dL Creatinine (0.52-1.04) mg/dL Glucose (74-99) mg/dL POC Glucose (mg/dL) 208 H 265 H 284 H (75-99) mg/dL 05/01/18 05/01/18 05/01/18 Range/Units 01:51 06:07 06:22 WBC (3.8-10.6) k/uL RBC (3.80-5.40) m/uL Hgb (11.4-16.0) gm/dL MCHC (31.0-37.0) g/dL Sodium 134 L (137-145) mmol/L BUN 54 H (7-17) mg/dL Creatinine 1.22 H (0.52-1.04) mg/dL Glucose 202 H (74-99) mg/dL POC Glucose (mg/dL) 320 H 237 H (75-99) mg/dL 05/01/18 Range/Units 06:22 WBC 11.2 H (3.8-10.6) k/uL RBC 3.78 L (3.80-5.40) m/uL Hgb 10.8 L (11.4-16.0) gm/dL MCHC 30.1 L (31.0-37.0) g/dL Sodium (137-145) mmol/L BUN (7-17) mg/dL Creatinine (0.52-1.04) mg/dL Glucose (74-99) mg/dL POC Glucose (mg/dL) (75-99) mg/dL Assessment and Plan Plan: Assessment: 1. Acute kidney injury mostly prerenal secondary to hypotension and infection. Improved since admission. Creatinine 1.22 today. Baseline creatinine near 1. 2. Hyperkalemia secondary to acute kidney injury and hyperglycemia. Better. 3. Influenza A status post Tamiflu. 4. Pneumonia maintained on antibiotics. 5. Insulin-dependent diabetes mellitus. 6. Benign hypertension. Controlled. 7. Volume overload. Improving with diuretics. 8. Hypomagnesemia secondary to diuresis. Plan: Maintain Lasix 40 mg IV once daily. I will give repeat an extra dose this eveni ng. Maintain low potassium diet. Avoid nephrotoxins. Repeat electrolytes the morning. Replace magnesium. 1 g IV today. Will plan to discontinue Leigh catheter prior to discharge. I discussed with th e patient the risk for infection with long-term catheter placement.
[2018-05-01] MEDS ORDERED: MAGNESIUM SULFATE-D5W PMX 1 GM in DEXTROSE/WATER 1 100ML.BAG IVPB ONE (11:00)
[2018-05-01 11:34] LABS: Glucose,Whole Blood 179 mg/dL (75-99)
[2018-05-01] MEDS: INSULIN DETEMIR (LEVEMIR) 100 UNIT/ML SYR SQ SCH ×2 (12:19→21:08)
[2018-05-01] MEDS: COLLAGENASE 250 UNIT/GM OINTMENT 30 GM TUBE TOPICAL SCH (12:20)
[2018-05-01] MEDS ORDERED: FUROSEMIDE 10 MG/ML 4 ML VIAL IV ONE (15:00)
[2018-05-01] MEDS: NITROGLYCERIN OINT 1 INCH/GM PACKET TOPICAL SCH (15:29)
[2018-05-01 16:46] LABS: Glucose,Whole Blood 236 mg/dL (75-99)
[2018-05-01 19:51] LABS: Glucose,Whole Blood 258 mg/dL (75-99)
[2018-05-02 01:54] LABS: Glucose,Whole Blood 269 mg/dL (75-99)
[2018-05-02] MEDS: INSULIN ASPART (NovoLOG) 100 UNIT/ML VIAL SQ SCH ×5 (02:00→12:48)
[2018-05-02 07:21] LABS: Glucose,Whole Blood 221 mg/dL (75-99)
[2018-05-02 07:32] VITALS: TEMP 97.9
[2018-05-02] MEDS: MORPHINE SULFATE 2 MG/ML SYRINGE IVP PRN ×2 (08:03→12:53)
[2018-05-02] MEDS: ENOXAPARIN 40 MG/0.4 ML SYRINGE SQ SCH (08:05)
[2018-05-02] MEDS: FUROSEMIDE 10 MG/ML 4 ML VIAL IV SCH (08:06)
[2018-05-02] MEDS: CLOPIDOGREL 75 MG TAB PO SCH (08:06)
[2018-05-02] MEDS: amLODIPine 5 MG TAB PO SCH (08:06)
[2018-05-02] MEDS: ATORVASTATIN 40 MG TAB PO SCH (08:06)
[2018-05-02 08:27] LABS: Calcium 9.3 mg/dL (8.4-10.2); Magnesium 1.8 mg/dL (1.6-2.3); Potassium 4.9 mmol/L (3.5-5.1)
[2018-05-02] MEDS: INSULIN DETEMIR (LEVEMIR) 100 UNIT/ML SYR SQ SCH (09:18)
[2018-05-02] MEDS: SYMBICORT 160-4.5 MCG INHALER INHALATION SCH (09:24)
[2018-05-02] MEDS: IPRATROPIUM-ALBUTEROL 3 ML NEB INHALATION SCH ×3 (09:24→17:12)
--- NOTE | 2018-05-02 11:12 | P.PN ---
Subjective Patient is seen in follow-up for acute kidney injury. Renal function has improved since admission. Creatinine stable at 1.24 today. Admits to good urine output. No chest pain or shortness of breath. No cough. Does have swelling in her lower extremities. She has a Leigh catheter in place due to incontinence. Vital signs are stable. General: The patient appeared well nourished and normally developed. HEENT: Head exam is unremarkable. Neck is without jugular venous distension. LUNGS: Breath sounds decreased. HEART: Rate and Rhythm are regular. First and second heart sounds normal. No murmurs, rubs or gallops. ABDOMEN: Abdominal exam reveals normal bowel sounds. Non-tender and non- distended. No evidence of peritonitis. EXTREMITITES: 1+ edema. Chronic changes noted. Objective - Vital Signs Vital signs: Vital Signs Temp 97.9 F 05/02/18 07:00 Pulse 88 05/02/18 09:37 Resp 20 05/02/18 07:00 BP 163/70 05/02/18 07:00 Pulse Ox 92 L 05/02/18 00:05 Intake & Output 05/01/18 05/02/18 05/02/18 18:59 06:59 18:59 Output Total 1750 1100 Balance -1750 -1100 Weight 137.1 kg Output: Urine 1750 1100 Uretheral (Leigh) 1750 800 Other: Voiding Method Indwelling Catheter Indwelling Catheter - Labs CBC & Chem 7: 05/01/18 06:22 05/02/18 07:04 Labs: Abnormal Lab Results - Last 24 Hours (Table) 05/01/18 05/01/18 05/01/18 Range/Units 11:32 16:44 19:48 Sodium (137-145) mmol/L BUN (7-17) mg/dL Creatinine (0.52-1.04) mg/dL Glucose (74-99) mg/dL POC Glucose (mg/dL) 179 H 236 H 258 H (75-99) mg/dL 05/02/18 05/02/18 05/02/18 Range/Units 01:48 07:04 07:20 Sodium 134 L (137-145) mmol/L BUN 48 H (7-17) mg/dL Creatinine 1.24 H (0.52-1.04) mg/dL Glucose 211 H (74-99) mg/dL POC Glucose (mg/dL) 269 H 221 H (75-99) mg/dL Assessment and Plan Plan: Assessment: 1. Acute kidney injury mostly prerenal secondary to hypotension and infection. Improved since admission. Creatinine 1.24 today. Baseline creatinine near 1. 2. Hyperkalemia secondary to acute kidney injury and hyperglycemia. Better. 3. Influenza A status post Tamiflu. 4. Pneumonia s/p antibiotics. 5. Insulin-dependent diabetes mellitus. 6. Benign hypertension. Controlled. 7. Volume overload. Improving with diuretics. 8. Hypomagnesemia secondary to diuresis. Status post placement. Plan: I will change Lasix to 40 mg orally twice daily. Okay to discontinue Leigh catheter. I discussed with the patient the risk for infection with long-term catheter placement.
[2018-05-02 11:56] LABS: Glucose,Whole Blood 267 mg/dL (75-99)
[2018-05-02] MEDS: COLLAGENASE 250 UNIT/GM OINTMENT 30 GM TUBE TOPICAL SCH (12:49)
--- NOTE | 2018-05-02 13:21 | P.PN ---
Subjective Progress Note Date: 05/01/18 Principal diagnosis: Influenza A, CHF and COPD Exacerbation. Ms. Thrasher is a 67-year-old female with a past medical history of COPD, diabetes mellitus, provider, hyperlipidemia, hypertension, arthritis, obstructive sleep apnea, recent history of diabetic foot ulcer and oste omyelitis, hypothyroidism, diabetic neuropathy admitted to the hospital with generalized myalgia and dry cough. Patient has been tested positive for influenza A and she was also found to have possible retrocardiac left lower lobe infiltrate and so admitted for further management. On 04/29/2018- Patient is sitting up in a chair by the bedside appears to be no acute distress. No active overnight issues reported by the nursing staff. She states that she just had a bowel movement and feels better now. She still has LE edema. Over all reports has she feels less short of breath. On 04/30/2018 Patient is currently sitting in the chair. Breathing status is improved. Otherwise patient still having significant leg swelling. No fever no chills. Creatinine level I.17 today. Right foot wound dressing changes. Vascular surgery is following. No complaints of chest pain. Continued on IV Lasix 40 mg daily. 05/01/2018 Patient denied any chest pain or worsening shortness of breath. Saturating well on room air. Still having leg swelling. Creatinine level is 1.2 today. Patient is being continued on Lasix 40 mg daily and is also on Leigh catheter. No compressive nausea vomiting or abdominal pain. Nephrology is following. Overall clinically improving. Currently patient is not on any antibiotics or Tamiflu. Current medications reviewed Objective - Vital Signs Vital signs: Vital Signs Temp 97.8 F 05/01/18 19:36 Pulse 85 05/01/18 19:36 Resp 16 05/01/18 19:36 BP 139/91 05/01/18 19:36 Pulse Ox 92 L 05/01/18 19:36 Intake & Output 05/01/18 05/01/18 05/02/18 06:59 18:59 06:59 Output Total 1200 1750 Balance -1200 -1750 Weight 136 kg Output: Urine 1200 1750 Uretheral (Leigh) 1750 Other: Voiding Method Indwelling Catheter Indwelling Catheter - Exam PHYSICAL EXAMINATION: Patient is lying in the bed comfortably, no acute distress, awake alert and oriented mild obesity. HEENT: Normocephalic. Neck is supple. Pupils reactive. Nostrils clear. Oral cavity is moist. Ears reveal no drainage. Neck reveals no JVD, carotid bruits, or thyromegaly. CHEST EXAMINATION: Trachea is central. Symmetrical expansion. Bibasilar improved air entry. No wheezing Lung ruth clear to auscultation and percussion. CARDIAC: Normal S1, S2 with no gallops. No murmurs ABDOMEN: Soft. Bowel sounds normal. No organomegaly. No abdominal bruits. Extremities: 2+ edema. No clubbing or cyanosis Neurologically awake, alert, oriented x3 with well-coordinated movements. No focal deficits noted Skin: No rash or skin lesions. Psychiatric: Coperative. Nonsuicidal Musculoskeletal: No joint swelling or deformity. Normal range of motion. - Labs CBC & Chem 7: 05/01/18 06:22 05/02/18 07:04 Labs: Abnormal Lab Results - Last 24 Hours (Table) 05/01/18 05/01/18 05/01/18 Range/Units 01:51 06:07 06:22 WBC (3.8-10.6) k/uL RBC (3.80-5.40) m/uL Hgb (11.4-16.0) gm/dL MCHC (31.0-37.0) g/dL Sodium 134 L (137-145) mmol/L BUN 54 H (7-17) mg/dL Creatinine 1.22 H (0.52-1.04) mg/dL Glucose 202 H (74-99) mg/dL POC Glucose (mg/dL) 320 H 237 H (75-99) mg/dL 05/01/18 05/01/18 05/01/18 Range/Units 06:22 11:32 16:44 WBC 11.2 H (3.8-10.6) k/uL RBC 3.78 L (3.80-5.40) m/uL Hgb 10.8 L (11.4-16.0) gm/dL MCHC 30.1 L (31.0-37.0) g/dL Sodium (137-145) mmol/L BUN (7-17) mg/dL Creatinine (0.52-1.04) mg/dL Glucose (74-99) mg/dL POC Glucose (mg/dL) 179 H 236 H (75-99) mg/dL 05/01/18 Range/Units 19:48 WBC (3.8-10.6) k/uL RBC (3.80-5.40) m/uL Hgb (11.4-16.0) gm/dL MCHC (31.0-37.0) g/dL Sodium (137-145) mmol/L BUN (7-17) mg/dL Creatinine (0.52-1.04) mg/dL Glucose (74-99) mg/dL POC Glucose (mg/dL) 258 H (75-99) mg/dL Assessment and Plan Assessment: Acute hypoxemic respiratory failure secondary to influenza A infection Acute exacerbation of chronic obstructive pulmonary disease. Improved Acute exacerbation of diastolic congestive heart failure. Elevated troponins, suspicious for non-STEMI Sepsis secondary to influenza pneumonia with possible superimposed bacterial infection Acute kidney injury. Secondary to hypotension and decreased renal perfusion. Hyperkalemia Recent history of diabetic right foot ulcer and osteomyelitis,not on antibiotics Peripheral vascular disease with previous WATER HAULER of the right SFA in March 2018. Diabetes mellitus Hypertension Hyperlipidemia Hypothyroidism History of sleep apnea Morbid obesity Plan: Patient will be continued on Lasix 40 mg daily. Continue with breathing treatments and current home medications. Nephrology is following. Follow-up renal function and further recommendations based on the clinical course. Anticipate discharge in next 24 hours. Time with Patient: Greater than 30
[2018-05-02 16:00] VITALS: BP 141/77; PULSE 89; RESP 18
[2018-05-02] MEDS ORDERED: FUROSEMIDE 40 MG TAB PO SCH (16:00)
--- NOTE | 2018-05-03 12:34 | CDI ---
Documentation Clarification Form Date: 05/03/18 From: Elisabeth Abhishek Shirley Anahi, Senior Manager Quality Assurance Hours-8:30 am & 5 pm MEdy Admit Date: 04/23/2018 10:40:00 PM Patient Name: Pop Thrasher Visit Number: [id number] Discharge Date: 05/02/2018 5:00:00 PM ATTENTION: The Clinical Documentation Specialists (CDI) and [facility] Coding Staff appreciate your assistance in clarifying documentation. Please respond to the clarification below the line at the bottom and electronically sign. The CDI & [facility] [employer] Coding staff will review the response and follow-up if needed. Please note: Queries are made part of the Legal Health Record. If you have any questions, please contact the author of this message via ITS. Dr. Servando Estrada Metabolic vs respiratory and toxic encephalopathy is documented in the H&P and PNs 04/25 & 04/26. History/Risk Factors: influenza, pneumonia, sepsis Clinical Indicators: O2 sat 90, P-110; gross neurological exam did not reveal any focal deficits Labs: lactic acid 2.7 then 5.0 EEG: none CT/MRI Brain: none Treatment: IV fluids, IV Vanco, IV Rocephin, Tamiflu Consults: Cardiology, Pulmonary, Renal, Vascular surgery In your professional opinion, can you please clarify the specific type of Encephalopathy, if known? Encephalopathy ruled out Metabolic Encephalopathy Septic Encephalopathy Toxic Encephalopathy Other, please specify Unable to determine Septi c Encephalopathy MTDD
--- NOTE | 2018-05-16 01:08 | P.DS ---
Providers Date of admission: 04/23/18 22:40 Expected date of discharge: 05/02/18 Attending physician: Jordan Eason Consults: 04/23/18 22:41 Consult Physician Routine Consulting Provider: Dino Rene Consult Reason/Comments: known Do you want consulting provider notified?: Yes Consult Physician Urgent Consulting Provider: Shaan Staton Consult Reason/Comments: known Do you want consulting provider notified?: Yes 04/24/18 10:44 Consult Physician Urgent Consulting Provider: Ivone Purvis Consult Reason/Comments: renal failure Do you want consulting provider notified?: Yes 04/24/18 15:44 Consult Physician Urgent Consulting Provider: Facundo Huang 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 Do you want consulting provider notified?: Yes Primary care physician: Sami Hernández Hospital Course: Discharge diagnosis Acute hypoxemic respiratory failure secondary to influenza A infection Acute exacerbation of chronic obstructive pulmonary disease. Improved Acute exacerbation of diastolic congestive heart failure. Elevated troponins, suspicious for non-STEMI Sepsis secondary to influenza pneumonia with possible superimposed bacterial infection Acute kidney injury. Secondary to hypotension and decreased renal perfusion. 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 Diabetes mellitus Hypertension Hyperlipidemia Hypothyroidism History of sleep apnea Morbid obesity Hospital course Ms. Thrasher is a 67-year-old female with a past medical history of COPD, diabetes mellitus, provider, hyperlipidemia, hypertension, arthritis, obstructive sleep apnea, recent history of diabetic foot ulcer and osteomyelitis, hypothyroidism, diabetic neuropathy admitted to the hospital with generalized myalgia and dry cough. Patient has been tested positive for influenza A and she was also found to have possible retrocardiac left lower lobe infiltrate and so admitted for further management. On 04/29/2018- Patient is sitting up in a chair by the bedside appears to be no acute distress. No active overnight issues reported by the nursing staff. She states that she just had a bowel movement and feels better now. She still has LE edema. Over all reports has she feels less short of breath. On 04/30/2018 Patient is currently sitting in the chair. Breathing status is improved. Otherwise patient still having significant leg swelling. No fever no chills. Creatinine level I.17 today. Right foot wound dressing changes. Vascular surgery is following. No complaints of chest pain. Continued on IV Lasix 40 mg daily. 05/01/2018 Patient denied any chest pain or worsening shortness of breath. Saturating well on room air. Still having leg swelling. Creatinine level is 1.2 today. Patient is being continued on Lasix 40 mg daily and is also on Leigh catheter. No compressive nausea vomiting or abdominal pain. Nephrology is following. Tony carr clinically improving. Currently patient is not on any antibiotics or Tamiflu. 05/02/2018 Patient's breathing status is improved. Creatinine level is stable at 1.24. Still having leg swelling. Lasix will be changed to 40 mg twice daily. Nephrology has seen the patient. No complaints of nausea vomiting or abdominal pain. No fever no chills. No chest pain or worsening shortness of breath. Stable to be discharged home. PHYSICAL EXAMINATION: Patient is lying in the bed comfortably, no acute distress, awake alert and oriented mild obesity. HEENT: Normocephalic. Neck is supple. Pupils reactive. Nostrils clear. Oral cavity is moist. Ears reveal no drainage. Neck reveals no JVD, carotid bruits, or thyromegaly. CHEST EXAMINATION: Trachea is central. Symmetrical expansion. Bibasilar improved air entry. No wheezing Lung ruth clear to auscultation and percussion. CARDIAC: Normal S1, S2 with no gallops. No murmurs ABDOMEN: Soft. Bowel sounds normal. No organomegaly. No abdominal bruits. Extremities: 2+ edema. No clubbing or cyanosis Neurologically awake, alert, oriented x3 with well-coordinated movements. No focal deficits noted Skin: No rash or skin lesions. Psychiatric: Coperative. Nonsuicidal Musculoskeletal: No joint swelling or deformity. Normal range of motion. Discharge vitals reviewed. Patient Condition at Discharge: Serious Plan - Discharge Summary Discharge Rx Participant: Yes New Discharge Prescriptions: New Ipratropium-Albuterol Nebulize [Duoneb 0.5 mg-3 mg/3 ml Soln] 3 ml INHALATION RT-QID #120 ampul.neb Furosemide [Lasix] 40 mg PO BID@0900,1600 #60 tab Continue Clopidogrel [Plavix] 75 mg PO DAILY #90 tab Insulin Aspart [NovoLOG Flexpen] 16 units SQ AC-TID Insulin Detemir [Levemir Flextouch] 60 unit SQ BID Levothyroxine Sodium [Levoxyl] 50 mcg PO QAM amLODIPine [Norvasc] 5 mg PO QAM Linagliptin [Tradjenta] 5 mg PO QAM Atorvastatin [Lipitor] 40 mg PO HS Budesonide-Formot 160-4.5 Mcg [Symbicort 160-4.5 Mcg Inhaler] 2 puff INHALATION BID Changed Losartan Potassium [Cozaar] 50 mg PO QAM #0 Discharge Medication List Clopidogrel [Plavix] 75 mg PO DAILY #90 tab 04/27/16 [Rx] Insulin Aspart [NovoLOG Flexpen] 16 units SQ AC-TID 10/19/17 [History] Insulin Detemir [Levemir Flextouch] 60 unit SQ BID 11/06/17 [History] Levothyroxine Sodium [Levoxyl] 50 mcg PO QAM 11/06/17 [History] Linagliptin [Tradjenta] 5 mg PO QAM 11/06/17 [History] amLODIPine [Norvasc] 5 mg PO QAM 11/06/17 [History] Atorvastatin [Lipitor] 40 mg PO HS 12/31/17 [History] Budesonide-Formot 160-4.5 Mcg [Symbicort 160-4.5 Mcg Inhaler] 2 puff INHALATION BID 03/05/18 [History] Furosemide [Lasix] 40 mg PO BID@0900,1600 #60 tab 05/02/18 [Rx] Ipratropium-Albuterol Nebulize [Duoneb 0.5 mg-3 mg/3 ml Soln] 3 ml INHALATION RT-QID #120 ampul.neb 05/02/18 [Rx] Losartan Potassium [Cozaar] 50 mg PO QAM #0 05/02/18 [Rx] Follow up Appointment(s)/Referral(s): Edgar Gallardo MD [Primary Care Provider] - 05/03/18 10:10 am (Sunday) [facility] [NON-STAFF[facility] - 1-2 Days Mukul Kim [NON-STAFF] - As Needed (nebulizer ) Patient Instructions/Handouts: Influenza (DC) Activity/Diet/Wound Care/Special Instructions: cardiology has cleared pt for discharge Discharge Disposition: HOME WITH HOME HEALTH SERVICES
== END 2018-05-02 17:00 | disposition home health service (06) | DRG 871 ==
LOC: EC 20:34 → 4SSUR 22:40 → 2SICU 04-24 11:43 → 3SCARD 04-26 19:59 → 4SSUR 05-01 19:16
PROVIDERS: ADMIT Hospitalist; ATTEND Hospitalist
DX: A41.89 Other specified sepsis (principal); J10.01 Influenza due to other identified influenza virus with the same other identified influenza virus pneumonia; J96.01 Acute respiratory failure with hypoxia; N17.0 Acute kidney failure with tubular necrosis; I21.4 Non-ST elevation (NSTEMI) myocardial infarction; I50.33 Acute on chronic diastolic (congestive) heart failure; G93.41 Metabolic encephalopathy; Z68.43 Body mass index [BMI] 50.0-59.9, adult; E87.2 Acidosis; E87.1 Hypo-osmolality and hyponatremia; J44.1 Chronic obstructive pulmonary disease with (acute) exacerbation; J98.11 Atelectasis; J44.0 Chronic obstructive pulmonary disease with (acute) lower respiratory infection; M86.9 Osteomyelitis, unspecified; E66.01 Morbid (severe) obesity due to excess calories; I11.0 Hypertensive heart disease with heart failure; E11.40 Type 2 diabetes mellitus with diabetic neuropathy, unspecified; E11.621 Type 2 diabetes mellitus with foot ulcer; E11.51 Type 2 diabetes mellitus with diabetic peripheral angiopathy without gangrene; E11.622 Type 2 diabetes mellitus with other skin ulcer; E11.69 Type 2 diabetes mellitus with other specified complication; L97.512 Non-pressure chronic ulcer of other part of right foot with fat layer exposed; E11.65 Type 2 diabetes mellitus with hyperglycemia; R15.9 Full incontinence of feces; E87.5 Hyperkalemia; E83.42 Hypomagnesemia; N28.1 Cyst of kidney, acquired; I99.8 Other disorder of circulatory system; T50.2X5A Adverse effect of carbonic-anhydrase inhibitors, benzothiadiazides and other diuretics, initial encounter; T38.0X5A Adverse effect of glucocorticoids and synthetic analogues, initial encounter; E87.6 Hypokalemia; H91.90 Unspecified hearing loss, unspecified ear; R77.8 Other specified abnormalities of plasma proteins; E78.5 Hyperlipidemia, unspecified; N39.3 Stress incontinence (female) (male); H35.30 Unspecified macular degeneration; G47.33 Obstructive sleep apnea (adult) (pediatric); E03.9 Hypothyroidism, unspecified; M79.7 Fibromyalgia; G56.03 Carpal tunnel syndrome, bilateral upper limbs; M19.90 Unspecified osteoarthritis, unspecified site; F17.210 Nicotine dependence, cigarettes, uncomplicated; Z71.6 Tobacco abuse counseling; Z79.02 Long term (current) use of antithrombotics/antiplatelets; Z79.4 Long term (current) use of insulin; Z79.51 Long term (current) use of inhaled steroids; Z79.890 Hormone replacement therapy; Z79.899 Other long term (current) drug therapy; Z99.89 Dependence on other enabling machines and devices; Z71.3 Dietary counseling and surveillance; Z87.01 Personal history of pneumonia (recurrent); Z95.820 Peripheral vascular angioplasty status with implants and grafts; Z89.421 Acquired absence of other right toe(s); Z80.1 Family history of malignant neoplasm of trachea, bronchus and lung; Z82.49 Family history of ischemic heart disease and other diseases of the circulatory system
CPT/HCPCS: 36415; 71045; 71046; 76770; 80048; 80053; 80202; 81001; 83036; 83605; 83735; 83880; 84100; 84484; 85025; 85027; 85610; 85730; 87040; 87070; 87086; 87205; 87502; 93005; 93306; 93970; 94640; 94760; 96365; 96366; 99291

== ENCOUNTER → 2018-06-17 | Outpatient (CLI) | payer MEDICARE, OTHER ==
[2018-06-17 19:32] LABS: Calcium 8.5 mg/dL (8.7-10.3); Potassium 4.4 mmol/L (3.5-5.5)
[2018-06-17 19:42] LABS: T4, Free (Free Thyroxine) 0.3 ng/dL (0.80-1.80)
== END | disposition home or self-care (01) ==
LOC: LABWHC1 13:18
PROVIDERS: ATTEND Internal Medicine Nephrology
DX: E03.9 Hypothyroidism, unspecified (principal); N18.3 Chronic kidney disease, stage 3 (moderate)
CPT/HCPCS: 36415; 80048; 84439; 84443; 84481

== ENCOUNTER 2018-07-02 20:13 | Inpatient (IN) | payer MEDICARE, OTHER ==
[2018-07-02] MEDS ORDERED: SODIUM CHLORIDE 0.9% 500 ML 500 ML IV ONE ×2 (22:09→23:44)
--- NOTE | 2018-07-02 22:11 | ED ---
General Adult HPI - General Chief complaint: Recheck/Abnormal Lab/Rx Stated complaint: Leg Pain, High Blood sugar Time Seen by Provider: 07/02/18 22:02 Source: patient, RN notes reviewed, old records reviewed Mode of arrival: wheelchair Limitations: no limitations - History of Present Illness Initial comments: 58-year-old female presents for evaluation of elevated blood sugar. Patient has history of type 2 diabetes, currently on Levemir and NovoLog. No recent changes in insulin dosing. She has been compliant with her medications. She states that throughout the day today she has had a sugar readings of greater than 500. She also reports bilateral lower extremity wounds. 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 Denies fever or chills. She is complaining of worsening pain and erythematous predominately in the left leg. Denies chest pain or dyspnea. Denies abdominal pain nausea or vomiting. - Related Data Home Medications Medication Instructions Recorded Confirmed Linagliptin [Tradjenta] 5 mg PO QAM 11/06/17 07/02/18 Atorvastatin [Lipitor] 40 mg PO HS 12/31/17 07/02/18 Insulin Aspart [NovoLOG Flexpen] 20 unit SQ AC-TID 07/02/18 07/02/18 Insulin Detemir [Levemir Flextouch] 70 units SQ BID 07/02/18 07/02/18 Levothyroxine Sodium [Synthroid] 100 mcg PO DAILY 07/02/18 07/02/18 Varenicline [Chantix Continuing 1 mg PO BID 07/02/18 07/02/18 Pack] metFORMIN HCL ER [Glucophage Xr] 500 mg PO BID 07/02/18 07/02/18 Previous Rx's Medication Instructions Recorded Clopidogrel [Plavix] 75 mg PO DAILY #90 tab 04/27/16 Furosemide [Lasix] 40 mg PO BID@0900,1600 #60 tab 05/02/18 Losartan Potassium [Cozaar] 50 mg PO QAM #0 05/02/18 Allergies Allergy/AdvReac Type Severity Reaction Status Date / Time No Known Allergies Allergy Verified 05/06/18 13:43 Review of Systems ROS Statement: Those systems with pertinent positive or pertinent negative responses have been documented in the HPI. ROS Other: All systems not noted in ROS Statement are negative. Past Medical History Past Medical History: COPD, Diabetes Mellitus, Eye Disorder, Fibromyalgia, Hyperlipidemia, Hypertension, Musculoskeletal Disorder, Neurologic Disorder, Osteoarthritis (OA), Pneumonia, Skin Disorder, Sleep Apnea/CPAP/BIPAP, Thyroid Disorder, Vascular Disorder Additional Past Medical History / Comment(s): IDDM type II, diabetic neuropathy hands and feet bilaterally, States she thinks she has Sleep Apnea., bilateral c arpal tunnel, vertigo, slight [place] , macular degeneration , hx. bronchitis, & pneumonia., sinus problems, Incontinent bowel and bladder., states scabs on upper arms. , SFA disease, wound on right foot- states no wt bearing- using wheel chair History of Any Multi-Drug Resistant Organisms: None Reported Past Surgical History: No Surgical Hx Reported Additional Past Surgical History / Comment(s): Colonoscopy, PICC line, Angiogram with Arthrectomy and Femoral stent (2017)rt.3rd & 4th toe amputation 2018 Past Anesthesia/Blood Transfusion Reactions: No Reported Reaction Past Psychological History: No Psychological Hx Reported Smoking Status: Former smoker - Past Family History Mother Family Medical History: Cancer Additional Family Medical History / Comment(s): Mother at 69yrs of age of lung cancer. Father Family Medical History: Cancer Additional Family Medical History / Comment(s): Father at 60 yrs of age of mesothelioma. Brother(s) Family Medical History: Coronary Artery Disease (CAD) Sister(s) Family Medical History: Hypertension Daughter(s) Family Medical History: No Reported History Son(s) Family Medical History: No Reported History General Exam Limitations: no limitations General appearance: alert, in no apparent distress Head exam: Present: atraumatic, normocephalic Eye exam: Present: normal appearance, PERRL ENT exam: Present: normal exam Neck exam: Present: normal inspection. Absent: meningismus Respiratory exam: Present: normal lung sounds bilaterally. Absent: respiratory distress, wheezes Cardiovascular Exam: Present: regular rate, normal rhythm GI/Abdominal exam: Present: soft. Absent: distended, tenderness Extremities exam: Present: other (Bilateral chronic venous stasis, right foot digit amputation, cellulitis on the left lower extremity) Neurological exam: Present: alert, oriented X3 Psychiatric exam: Present: normal affect, normal mood Skin exam: Present: warm, dry. Absent: cyanosis, diaphoretic Course Vital Signs 07/02/18 21:10 Temperature 98.1 F Pulse Rate 93 Respiratory 20 Rate Blood Pressure 135/94 O2 Sat by Pulse 97 Oximetry Medical Decision Making - Medical Decision Making 58-year-old female presenting with elevated blood sugar and bilateral lower extremity pain. Pain and swelling as well as erythema in the right leg. No reported fever. Laboratory studies are obtained, patient has elevated white blood cell count 14.3, hemoglobin is 10.8. She has a creatinine 1.23 which is baseline. She has a normal anion gap, normal CO2. Blood glucose is 300 in the emergency department. Urinalysis is pending. Given the elevated white blood cell count and the cellulitis problem in the left lower extremity. Patient will be admitted for IV antibiotics. - Lab Data Result diagrams: 07/02/18 22:50 07/02/18 22:50 Lab Results 07/02/18 07/02/18 Range/Units 22:50 22:50 WBC 14.3 H (3.8-10.6) k/uL RBC 3.50 L (3.80-5.40) m/uL Hgb 10.3 L (11.4-16.0) gm/dL Hct 31.7 L (34.0-46.0) % MCV 90.5 (80.0-100.0) fL MCH 29.4 (25.0-35.0) pg MCHC 32.4 (31.0-37.0) g/dL RDW 14.0 (11.5-15.5) % Plt Count 328 (150-450) k/uL Neutrophils % 72 % Lymphocytes % 19 % Monocytes % 4 % Eosinophils % 3 % Basophils % 0 % Neutrophils # 10.3 H (1.3-7.7) k/uL Lymphocytes # 2.8 (1.0-4.8) k/uL Monocytes # 0.6 (0-1.0) k/uL Eosinophils # 0.4 (0-0.7) k/uL Basophils # 0.1 (0-0.2) k/uL Sodium 134 L (137-145) mmol/L Potassium 4.8 (3.5-5.1) mmol/L Chloride 97 L (98-107) mmol/L Carbon Dioxide 25 (22-30) mmol/L Anion Gap 12 mmol/L BUN 47 H (7-17) mg/dL Creatinine 1.23 H (0.52-1.04) mg/dL Est GFR (CKD-EPI)AfAm 55 (>60 ml/min/1.73 sqM) Est GFR (CKD-EPI)NonAf 48 (>60 ml/min/1.73 sqM) Glucose 310 H (74-99) mg/dL Calcium 8.8 (8.4-10.2) mg/dL Total Bilirubin 0.6 (0.2-1.3) mg/dL AST 34 (14-36) U/L ALT 17 (9-52) U/L Alkaline Phosphatase 221 H (38-126) U/L Total Protein 7.9 (6.3-8.2) g/dL Albumin 3.9 (3.5-5.0) g/dL Acetone, Qual Positive (Negative) Disposition Clinical Impression: Hyperglycemia, Left leg cellulitis Disposition: ADMITTED IP TO THIS [facility] Condition: Stable Is patient prescribed a controlled substance at d/c from ED?: No Referrals: Edgar Gallardo MD [Primary Care Provider] - 1-2 days Decision to Admit Reason: Admit from EC Decision Date: 07/03/18 Decision Time: 00:30
[2018-07-02 23:09] LABS: Basophils # (A) 0.1 k/uL (0-0.2); Basophils % (A) 0 %; Eosinophils # (A) 0.4 k/uL (0-0.7); Eosinophils % (A) 3 %; HCT 31.7 % (34.0-46.0); HGB 10.3 gm/dL (11.4-16.0); Lymphocytes # (A) 2.8 k/uL (1.0-4.8); Lymphocytes % (A) 19 %; MCH 29.4 pg (25.0-35.0); MCHC 32.4 g/dL (31.0-37.0); MCV 90.5 fL (80.0-100.0); Mean Platelet Volume 7.7; Monocytes # (A) 0.6 k/uL (0-1.0); Monocytes % (A) 4 %; Neutrophils # (A) 10.3 k/uL (1.3-7.7); Neutrophils % (A) 72 %; Platelet Count 328 k/uL (150-450); WBC 14.3 k/uL (3.8-10.6)
[2018-07-02 23:22] LABS: Albumin 3.9 g/dL (3.5-5.0); Anion Gap 12 mmol/L; Calcium 8.8 mg/dL (8.4-10.2); Carbon Dioxide 25 mmol/L (22-30); Chloride 97 mmol/L (98-107); Glucose 310 mg/dL (74-99); Sodium 134 mmol/L (137-145); Total Bilirubin 0.6 mg/dL (0.2-1.3); Total Protein 7.9 g/dL (6.3-8.2)
[2018-07-02 23:30] LABS: ALT 17 U/L (9-52); AST 34 U/L (14-36); Alkaline Phosphatase 221 U/L (38-126); Blood Urea Nitrogen 47 mg/dL (7-17); Potassium 4.8 mmol/L (3.5-5.1)
[2018-07-02] MEDS ORDERED: INSULIN REGULAR 100 UNIT/ML VIAL IV ONE (23:44)
[2018-07-03] MEDS ORDERED: cefTRIAXone IN SWFI 1,000 MG/10 ML SYRINGE IVP STA (00:26)
[2018-07-03] MEDS ORDERED: VANCOMYCIN IV PER PHARMACY 1 EACH MISC MISCELLANE PRN (00:26)
[2018-07-03] MEDS ORDERED: NALOXONE 0.4 MG/ML 1 ML VIAL IV PRN (00:30)
[2018-07-03] MEDS: MORPHINE SULFATE 4 MG/ML SYRINGE IV PRN ×6 (00:42→22:01)
[2018-07-03] MEDS ORDERED: VANCOMYCIN 2,000 MG in SODIUM CHLORIDE 0.9% 500 ML 500 ML IVPB SCH (01:00)
[2018-07-03 05:29] LABS: Appearance,Urine Cloudy (Clear); Bacteria,Urine Many /hpf; Bilirubin,Urine Negative (Negative); Blood,Urine Small (Negative); Color,Urine Yellow; Glucose,Urine (UA) 3+ (Negative); Ketones,Urine Negative (Negative); Leukocyte Esterase,Urine Large (Negative); Mucus,Urine Rare /hpf; Nitrite,Urine Positive (Negative); Protein,Urine 3+ (Negative); RBC,Urine 5 /hpf (0-5); Specific Gravity,Urine 1.018 (1.001-1.035); Squamous Epithelial Cell,Urine 5 /hpf (0-4); Urobilinogen,Urine <2.0 mg/dL (<2.0); WBC,Urine >182 /hpf (0-5)
[2018-07-03] MEDS: INSULIN ASPART (NovoLOG) 100 UNIT/ML VIAL SQ SCH ×3 (07:21→17:23)
[2018-07-03 07:44] LABS: Glucose,Whole Blood 330 mg/dL (75-99)
[2018-07-03] MEDS: FUROSEMIDE 40 MG TAB PO SCH ×2 (08:44→16:39)
[2018-07-03] MEDS: LOSARTAN 50 MG TAB PO SCH (08:44)
[2018-07-03] MEDS: LINAGLIPTIN 5 MG TABLET PO SCH (08:44)
[2018-07-03] MEDS: metFORMIN 500 MG TAB PO SCH ×2 (08:44→20:15)
[2018-07-03] MEDS: CLOPIDOGREL 75 MG TAB PO SCH (08:44)
[2018-07-03] MEDS: INSULIN DETEMIR (LEVEMIR) 100 UNIT/ML SYR SQ SCH ×2 (08:45→20:17)
[2018-07-03 11:11] LABS: Glucose,Whole Blood 346 mg/dL (75-99)
--- NOTE | 2018-07-03 13:07 | P.HPIM ---
History of Present Illness This is a pleasant 58 years old female with past medical history of COPD, diabetes mellitus, fibromyalgia, hyperlipidemia, hypertension, osteoarthritis, sleep apnea on CPAP/BiPAP, during her bowel incontinence, recent history of di abetic foot ulcer and osteomyelitis, chronic kidney disease. Patient is wheelchair-bound and bedbound for a few months now as she was told me on her ex- at bedside. Patient presents this time because of uncontrolled sugar. She takes Levemir 70 units twice a day plus NovoLog 20 units 3 times with meals , plus metformin 500 twice a day. She says that usually her sugar is 300-400 range however yesterday was around 500 to hold a and her [id number] who who was taking care of her the whole day she got concerned and sent her to emergency room. However patient denies chest pain or dyspnea. No abdominal pain or nausea vomiting. She is eating well. Patient thought that she has infection in her urine because she sees what she thinks yeast in her urine. She does not have karen dysuria or suprapubic pain or tenderness. Patient Vitas looks stable, he is afebrile. Labs show WBC of 14.3 K. Creatinine 1.23, baseline is 1.2-1.5. Liver enzymes not elevated. Sugar is 330-346. Urinalysis is suspicious for infection. Patient was already started on ceftriaxone and vancomycin in emergency room. Review of Systems CONSTITUTIONAL: No fever, no malaise, no fatigue. HEENT: No recent visual problems or hearing problems. Denied any sore throat. CARDIOVASCULAR: No orthopnea, PND, no palpitations, no syncope. PULMONARY: No shortness of breath, no cough, no hemoptysis. GASTROINTESTINAL: No diarrhea, no nausea, no vomiting, no abdominal pain. Normoactive bowel sounds. NEUROLOGICAL: No headaches, no weakness, no numbness. HEMATOLOGICAL: Denies any bleeding or petechiae. GENITOURINARY: Denies any burning micturition, frequency, or urgency. MUSCULOSKELETAL/RHEUMATOLOGICAL: Denies any joint pain, swelling, or any muscle pain. ENDOCRINE: Denies any polyuria or polydipsia. ROS unobtainable: due to endotracheal tube Past Medical History Past Medical History: COPD, Diabetes Mellitus, Eye Disorder, Fibromyalgia, Hyperlipidemia, Hypertension, Musculoskeletal Disorder, Neurologic Disorder, Osteoarthritis (OA), Pneumonia, Skin Disorder, Sleep Apnea/CPAP/BIPAP, Thyroid Disorder, Vascular Disorder Additional Past Medical History / Comment(s): IDDM type II, diabetic neuropathy hands and feet bilaterally, States she thinks she has Sleep Apnea., bilateral carpal tunnel, vertigo, slight [place] , macular degeneration , hx. bronchitis, & pneumonia., sinus problems, Incontinent bowel and bladder., states scabs on upper arms. , SFA disease, wound on right foot- states no wt bearing- using wheel chair; Flu-ICU admission History of Any Multi-Drug Resistant Organisms: None Reported Past Surgical History: No Surgical Hx Reported Additional Past Surgical History / Comment(s): Colonoscopy, PICC line, Angiogram with Arthrectomy and Femoral stent (2017)rt.3rd & 4th toe amputation 2018 Past Anesthesia/Blood Transfusion Reactions: No Reported Reaction Past Psychological History: No Psychological Hx Reported Smoking Status: Former smoker Past Alcohol Use History: None Reported Additional Past Alcohol Use History / Comment(s): Stopped smoking Oct 2017 Past Drug Use History: None Reported - Past Family History Mother Family Medical History: Cancer Additional Family Medical History / Comment(s): Mother at 69yrs of age of lung cancer. Father Family Medical History: Cancer Additional Family Medical History / Comment(s): Father at 60 yrs of age of mesothelioma. Brother(s) Family Medical History: Coronary Artery Disease (CAD) Sister(s) Family Medical History: Hypertension Daughter(s) Family Medical History: No Reported History Son(s) Family Medical History: No Reported History Medications and Allergies Home Medications Medication Instructions Recorded Confirmed Type Clopidogrel [Plavix] 75 mg PO DAILY #90 tab 04/27/16 07/02/18 Rx Linagliptin [Tradjenta] 5 mg PO QAM 11/06/17 07/02/18 History Atorvastatin [Lipitor] 40 mg PO HS 12/31/17 07/02/18 History Furosemide [Lasix] 40 mg PO BID@0900,1600 #60 tab 05/02/18 07/02/18 Rx Losartan Potassium [Cozaar] 50 mg PO QAM #0 05/02/18 07/02/18 Rx Insulin Aspart [NovoLOG Flexpen] 20 unit SQ AC-TID 07/02/18 07/02/18 History Insulin Detemir [Levemir Flextouch] 70 units SQ BID 07/02/18 07/02/18 History Levothyroxine Sodium [Synthroid] 100 mcg PO DAILY 07/02/18 07/02/18 History Varenicline [Chantix Continuing 1 mg PO BID 07/02/18 07/02/18 History Pack] metFORMIN HCL ER [Glucophage Xr] 500 mg PO BID 07/02/18 07/02/18 History Allergies Allergy/AdvReac Type Severity Reaction Status Date / Time No Known Allergies Allergy Verified 05/06/18 13:43 Physical Exam Vitals: Vital Signs Temp Pulse Pulse Resp BP BP Pulse Ox 07/03/18 07:58 97.7 F 84 18 127/83 99 07/02/18 21:10 98.1 F 93 20 135/94 97 Intake and Output 07/02/18 07/03/18 07/03/18 22:59 06:59 14:59 Output Total 600 Balance -600 Output: Urine 600 Other: Voiding Method Bedside Commode # Voids 1 Weight 130.181 kg GENERAL: The patient is alert and oriented x3, not in any acute distress. Obese HEENT: Pupils are round and equally reacting to light. EOMI. No scleral icterus. No conjunctival pallor. Normocephalic, atraumatic. No pharyngeal erythema. No thyromegaly. CARDIOVASCULAR: S1 and S2 present. No murmurs, rubs, or gallops. PULMONARY: Chest is clear to auscultation, no wheezing or crackles. ABDOMEN: Soft, nontender, nondistended, normoactive bowel sounds. No palpable organomegaly. MUSCULOSKELETAL: No joint swelling or deformity. -EXTREMITIES: No cyanosis, clubbing, or pedal edema. Bilateral lower extremity redness on the front legs with no evidence of cellulitis, it looks chronic dermatitis. Status post right toe amputation. -NEUROLOGICAL: Gross neurological examination did not reveal any focal deficits. Patient is bedbound for a few months SKIN: No rashes. Results CBC & Chem 7: 07/02/18 22:50 07/02/18 22:50 Labs: Abnormal Lab Results - Last 24 Hours (Table) 07/02/18 07/02/18 07/03/18 Range/Units 22:50 22:50 05:12 WBC 14.3 H (3.8-10.6) k/uL RBC 3.50 L (3.80-5.40) m/uL Hgb 10.3 L (11.4-16.0) gm/dL Hct 31.7 L (34.0-46.0) % Neutrophils # 10.3 H (1.3-7.7) k/uL Sodium 134 L (137-145) mmol/L Chloride 97 L (98-107) mmol/L BUN 47 H (7-17) mg/dL Creatinine 1.23 H (0.52-1.04) mg/dL Glucose 310 H (74-99) mg/dL POC Glucose (mg/dL) (75-99) mg/dL Alkaline Phosphatase 221 H (38-126) U/L Urine Appearance Cloudy H (Clear) Urine Protein 3+ H (Negative) Urine Glucose (UA) 3+ H (Negative) Urine Blood Small H (Negative) Urine Nitrite Positive H (Negative) Ur Leukocyte Esterase Large H (Negative) Urine WBC >182 H (0-5) /hpf Urine WBC Clumps Many H (None) /hpf Ur Squamous Epith Cells 5 H (0-4) /hpf Urine Bacteria Many H (None) /hpf Urine Mucus Rare H (None) /hpf 07/03/18 07/03/18 Range/Units 07:42 11:08 WBC (3.8-10.6) k/uL RBC (3.80-5.40) m/uL Hgb (11.4-16.0) gm/dL Hct (34.0-46.0) % Neutrophils # (1.3-7.7) k/uL Sodium (137-145) mmol/L Chloride (98-107) mmol/L BUN (7-17) mg/dL Creatinine (0.52-1.04) mg/dL Glucose (74-99) mg/dL POC Glucose (mg/dL) 330 H 346 H (75-99) mg/dL Alkaline Phosphatase (38-126) U/L Urine Appearance (Clear) Urine Protein (Negative) Urine Glucose (UA) (Negative) Urine Blood (Negative) Urine Nitrite (Negative) Ur Leukocyte Esterase (Negative) Urine WBC (0-5) /hpf Urine WBC Clumps (None) /hpf Ur Squamous Epith Cells (0-4) /hpf Urine Bacteria (None) /hpf Urine Mucus (None) /hpf Thrombosis Risk Factor Assmnt - Choose All That Apply Each Factor Represents 1 point: Age 41-60 years, Obesity (BMI >25), Swollen legs (current) Each Risk Factor Represents 3 Points: Family history of DVT/PE Thrombosis Risk Factor Assessment Total Risk Factor Score: 6 Thrombosis Risk Factor Assessment Level: High Risk Assessment and Plan Assessment: Acute urinary tract infection Uncontrolled hyperglycemia Type 2 diabetes mellitus Diabetic neuropathy Hypertension Hyperlipidemia COPD, not in acute exacerbation History of osteoarthritis Sleep apnea on CPAP/BiPAP Patient is bedbound Plan: This is a pleasant 58s old female who presents with uncontrolled diabetes and UTI. Call infectious disease consult for antibiotic adjustment. Follow-up urine culture results. We ordered urine culture and blood culture. Increase her insulin dose and follow-up her Accu-Cheks with insulin sliding scale. Labs and medication were reviewed.. Continue same treatment. Continue with symptomatic treatment. Resume home medication. Monitor lytes and vitals. DVT and GI prophylaxis. Further recommendations of the clinical course of the patient DVT prophylaxis: Subcutaneous heparin GI Prophylaxis: Pepcid Prognosis is guarded
[2018-07-03] MEDS ORDERED: INSULIN DETEMIR (LEVEMIR) 100 UNIT/ML SYR SQ ONE (13:30)
--- NOTE | 2018-07-03 13:56 | P.NPCON ---
History of Present Illness - Reason for Consult chronic renal failure - History of Present Illness Reason for consultation: Acute kidney injury on chronic kidney disease History of present illness: Patient is a 58-year-old female seen in renal consultation for chronic kidney disease. Patient was seen and evaluated in the emergency room. Patient has chronic kidney disease stage III with baseline creatinine in the range of 1-1.2. Etiology is diabetic kidney disease. Patient presented to the hospital due to elevated blood sugars. Patient states she was taking her medications as prescribed including the insulin per blood sugar got up to 550 and family brought to the hospital. Blood sugars since admission has been in the range of 300-350. GFR is at baseline. Patient did have diarrhea prior to admission. No vomiting. Oral intake has been fair. Denies use of nonsteroidals. Hemodynamically stable. Patient does have problems in lower extremity is. She's had amputation of the right foot third and fourth toe in the past. She has been voiding. No hematuria or dysuria. Vital signs are stable. General: The patient appeared well nourished and normally developed. HEENT: Head exam is unremarkable. Neck is without jugular venous distension. LUNGS: Lungs are clear to auscultation and percussion. Breath sounds decreased. HEART: Rate and Rhythm are regular. First and second heart sounds normal. No murmurs, rubs or gallops. ABDOMEN: Abdominal exam reveals normal bowel sounds. Non-tender and non- distended. No evidence of peritonitis. EXTREMITITES: 1+ edema. Erythema in lower extremities noted. Past Medical History Past Medical History: COPD, Diabetes Mellitus, Eye Disorder, Fibromyalgia, Hyperlipidemia, Hypertension, Musculoskeletal Disorder, Neurologic Disorder, Osteoarthritis (OA), Pneumonia, Skin Disorder, Sleep Apnea/CPAP/BIPAP, Thyroid Disorder, Vascular Disorder Additional Past Medical History / Comment(s): IDDM type II, diabetic neuropathy hands and feet bilaterally, States she thinks she has Sleep Apnea., bilateral carpal tunnel, vertigo, slight [place] , macular degeneration , hx. bronchitis, & pneumonia., sinus problems, Incontinent bowel and bladder., states scabs on upper arms. , SFA disease, wound on right foot- states no wt bearing- using wheel chair; Flu-ICU admission History of Any Multi-Drug Resistant Organisms: None Reported Past Surgical History: No Surgical Hx Reported Additional Past Surgical History / Comment(s): Colonoscopy, PICC line, Angiogram with Arthrectomy and Femoral stent (2017)rt.3rd & 4th toe amputation 2018 Past Anesthesia/Blood Transfusion Reactions: No Reported Reaction Past Psychological History: No Psychological Hx Reported Smoking Status: Former smoker Past Alcohol Use History: None Reported Additional Past Alcohol Use History / Comment(s): Stopped smoking Oct 2017 Past Drug Use History: None Reported - Past Family History Mother Family Medical History: Cancer Additional Family Medical History / Comment(s): Mother at 69yrs of age of lung cancer. Father Family Medical History: Cancer Additional Family Medical History / Comment(s): Father at 60 yrs of age of mesothelioma. Brother(s) Family Medical History: Coronary Artery Disease (CAD) Sister(s) Family Medical History: Hypertension Daughter(s) Family Medical History: No Reported History Son(s) Family Medical History: No Reported History Medications and Allergies Home Medications Medication Instructions Recorded Confirmed Type Clopidogrel [Plavix] 75 mg PO DAILY #90 tab 04/27/16 07/02/18 Rx Linagliptin [Tradjenta] 5 mg PO QAM 11/06/17 07/02/18 History Atorvastatin [Lipitor] 40 mg PO HS 12/31/17 07/02/18 History Furosemide [Lasix] 40 mg PO BID@0900,1600 #60 tab 05/02/18 07/02/18 Rx Losartan Potassium [Cozaar] 50 mg PO QAM #0 05/02/18 07/02/18 Rx Insulin Aspart [NovoLOG Flexpen] 20 unit SQ AC-TID 07/02/18 07/02/18 History Insulin Detemir [Levemir Flextouch] 70 units SQ BID 07/02/18 07/02/18 History Levothyroxine Sodium [Synthroid] 100 mcg PO DAILY 07/02/18 07/02/18 History Varenicline [Chantix Continuing 1 mg PO BID 07/02/18 07/02/18 History Pack] metFORMIN HCL ER [Glucophage Xr] 500 mg PO BID 07/02/18 07/02/18 History Allergies Allergy/AdvReac Type Severity Reaction Status Date / Time No Known Allergies Allergy Verified 05/06/18 13:43 Physical Exam Vitals: Vital Signs Temp Pulse Pulse Resp BP BP Pulse Ox 07/03/18 13:31 98 F 85 17 124/71 94 L 07/03/18 07:58 97.7 F 84 18 127/83 99 07/02/18 21:10 98.1 F 93 20 135/94 97 Intake and Output 07/02/18 07/03/18 07/03/18 22:59 06:59 14:59 Intake Total 540 Output Total 1000 Balance -460 Intake: Oral 540 Output: Urine 1000 Other: Voiding Method Bedside Commode # Voids 1 Weight 130.181 kg Results - Lab Results Most recent lab results Calcium 8.8 mg/dL (8.4-10.2) 07/02/18 22:50 07/02/18 22:50 07/02/18 22:50 Assessment and Plan Plan: Assessment: 1. Chronic kidney disease stage III with baseline creatinine in the range of 1- 1.2 secondary to diabetic kidney disease. Renal ultrasound from April 2018 revealed no evidence of hydronephrosis. 2. Hyperglycemia. Most recent blood sugar 346. Patient has history of insulin-dependent diabetes mellitus. 3. Lower extremity edema. 4. Hypertension with chronic kidney disease. 5. UTI. Urine culture pending. 6. Lower extremity wounds. Infectious disease consulted. Plan: Maintain Lasix 40 mg orally twice daily. If patient has diarrhea again, will consider discontinuing metformin. Follow-up cultures. Continue to monitor renal function and urine output. Thank you for the consultation. I will continue to follow the patient with you during her hospital stay.
[2018-07-03 17:14] LABS: Glucose,Whole Blood 356 mg/dL (75-99)
[2018-07-03 20:09] LABS: Glucose,Whole Blood 319 mg/dL (75-99)
[2018-07-03] MEDS: ATORVASTATIN 40 MG TAB PO SCH (20:16)
--- NOTE | 2018-07-03 22:09 | P.CONS ---
History of Present Illness - Reason for Consult Consult date: 07/03/18 Sepsis and urinary tract infection Requesting physician: Nathaniel E Sheet - Chief Complaint Elevated blood sugar and left leg pain - History of Present Illness Patient is 58-year-old female presenting to the ER at [facility] chief complaints of elevated blood sugar in the 500, a symptom has been going on for a day before she presented to hospital the patient denies any high-grade fever did have some chills patient had denies any headache or URI symptoms no chest pain or shortness of breath or cough denies any abdominal pain no burning or frequency of urine the patient noticed to have swelling in both legs with more marked in the left leg the patient did have a little aching to sharp pain intensity about 8 out of 10 with no radiation with the symptoms the patient has been evaluated by the physician on arrival to the area the patient has been afebrile patient did have elevated white count of 14,000 the patient did have a positive UA however the patient denies burning or frequency of urine she's been diagnosed with left lower extremity cellulitis, the patient was started on vancomycin and effaces was consulted for further recommendation regarding antibiotic therapy, Review of Systems Review of system Constitutional: The patient denies any fever or rigors or chills, the patient does complain of weakness. Eyes: No complaint ENT: No complaint Respiratory: No complaint Cardiovascular: No complaint Gastrointestinal: No complaint Genitourinary: No complaint Musculoskeletal: No complaint Integumentary: As per history of present illness Endocrine : As per history of present illness Psycologial : No complaint Neurological: No complaint. Past Medical History Past Medical History: COPD, Diabetes Mellitus, Eye Disorder, Fibromyalgia, Hyperlipidemia, Hypertension, Musculoskeletal Disorder, Neurologic Disorder, Osteoarthritis (OA), Pneumonia, Skin Disorder, Sleep Apnea/CPAP/BIPAP, Thyroid Disorder, Vascular Disorder Additional Past Medical History / Comment(s): IDDM type II, diabetic neuropathy hands and feet bilaterally, States she thinks she has Sleep Apnea., bilateral carpal tunnel, vertigo, slight [place] , macular degeneration , hx. bronchitis, & pneumonia., sinus problems, Incontinent bowel and bladder., states scabs on upper arms. , SFA disease, wound on right foot- states no wt bearing- using wheel chair; Flu-ICU admission History of Any Multi-Drug Resistant Organisms: None Reported Past Surgical History: No Surgical Hx Reported Additional Past Surgical History / Comment(s): Colonoscopy, PICC line, Angiogram with Arthrectomy and Femoral stent (2017)rt.3rd & 4th toe amputation 2018 Past Anesthesia/Blood Transfusion Reactions: No Reported Reaction Past Psychological History: No Psychological Hx Reported Smoking Status: Former smoker Past Alcohol Use History: None Reported Additional Past Alcohol Use History / Comment(s): Stopped smoking Oct 2017 Past Drug Use History: None Reported - Past Family History Mother Family Medical History: Cancer Additional Family Medical History / Comment(s): Mother at 69yrs of age of lung cancer. Father Family Medical History: Cancer Additional Family Medical History / Comment(s): Father at 60 yrs of age of mesothelioma. Brother(s) Family Medical History: Coronary Artery Disease (CAD) Sister(s) Family Medical History: Hypertension Daughter(s) Family Medical History: No Reported History Son(s) Family Medical History: No Reported History Medications and Allergies Home Medications Medication Instructions Recorded Confirmed Type Clopidogrel [Plavix] 75 mg PO DAILY #90 tab 04/27/16 07/02/18 Rx Linagliptin [Tradjenta] 5 mg PO QAM 11/06/17 07/02/18 History Atorvastatin [Lipitor] 40 mg PO HS 12/31/17 07/02/18 History Furosemide [Lasix] 40 mg PO BID@0900,1600 #60 tab 05/02/18 07/02/18 Rx Losartan Potassium [Cozaar] 50 mg PO QAM #0 05/02/18 07/02/18 Rx Insulin Aspart [NovoLOG Flexpen] 20 unit SQ AC-TID 07/02/18 07/02/18 History Insulin Detemir [Levemir Flextouch] 70 units SQ BID 07/02/18 07/02/18 History Levothyroxine Sodium [Synthroid] 100 mcg PO DAILY 07/02/18 07/02/18 History Varenicline [Chantix Continuing 1 mg PO BID 07/02/18 07/02/18 History Pack] Allergies Allergy/AdvReac Type Severity Reaction Status Date / Time No Known Allergies Allergy Verified 05/06/18 13:43 Physical Exam Vitals: Vital Signs Temp Pulse Pulse Resp BP BP Pulse Ox 07/03/18 15:19 82 15 07/03/18 15:00 97.5 F L 82 15 122/81 97 07/03/18 13:31 98 F 85 17 124/71 94 L 07/03/18 07:58 97.7 F 84 18 127/83 99 07/02/18 21:10 98.1 F 93 20 135/94 97 Intake and Output 07/03/18 07/03/18 07/03/18 06:59 14:59 22:59 Intake Total 540 Output Total 1000 Balance -460 Intake: Oral 540 Output: Urine 1000 Other: Voiding Method Bedside Commode Bedside Commode # Voids 1 General: The patient is awake and alert, in no distress. Skin: no rashes and no masses palpable. Eye: Pupils are equal, round, there is normal conjunctiva bilaterally. Ears, nose, mouth and throat: There are moist mucous membranes and no oral lesions. Neck: The neck is supple, there is no thyromegaly. Cardiovascular: S1-S2 regular rate and rhythm. No murmur. Respiratory: Unlabored breathing clear to auscultation bilaterally Gastrointestinal: Soft, non-distended, non-tender abdomen without masses or organomegaly noted. Lower extremity: Bilateral leg with diffuse swelling to left leg is more swollen and red and warm to touch. Psychiatric: Patient is awake and alert and oriented 3, appropriate mood & affect, normal judgment. Results CBC & Chem 7: 07/02/18 22:50 07/02/18 22:50 Labs: Abnormal Lab Results - Last 24 Hours (Table) 07/02/18 07/02/18 07/03/18 Range/Units 22:50 22:50 05:12 WBC 14.3 H (3.8-10.6) k/uL RBC 3.50 L (3.80-5.40) m/uL Hgb 10.3 L (11.4-16.0) gm/dL Hct 31.7 L (34.0-46.0) % Neutrophils # 10.3 H (1.3-7.7) k/uL Sodium 134 L (137-145) mmol/L Chloride 97 L (98-107) mmol/L BUN 47 H (7-17) mg/dL Creatinine 1.23 H (0.52-1.04) mg/dL Glucose 310 H (74-99) mg/dL POC Glucose (mg/dL) (75-99) mg/dL Alkaline Phosphatase 221 H (38-126) U/L Urine Appearance Cloudy H (Clear) Urine Protein 3+ H (Negative) Urine Glucose (UA) 3+ H (Negative) Urine Blood Small H (Negative) Urine Nitrite Positive H (Negative) Ur Leukocyte Esterase Large H (Negative) Urine WBC >182 H (0-5) /hpf Urine WBC Clumps Many H (None) /hpf Ur Squamous Epith Cells 5 H (0-4) /hpf Urine Bacteria Many H (None) /hpf Urine Mucus Rare H (None) /hpf 07/03/18 07/03/18 Range/Units 07:42 11:08 WBC (3.8-10.6) k/uL RBC (3.80-5.40) m/uL Hgb (11.4-16.0) gm/dL Hct (34.0-46.0) % Neutrophils # (1.3-7.7) k/uL Sodium (137-145) mmol/L Chloride (98-107) mmol/L BUN (7-17) mg/dL Creatinine (0.52-1.04) mg/dL Glucose (74-99) mg/dL POC Glucose (mg/dL) 330 H 346 H (75-99) mg/dL Alkaline Phosphatase (38-126) U/L Urine Appearance (Clear) Urine Protein (Negative) Urine Glucose (UA) (Negative) Urine Blood (Negative) Urine Nitrite (Negative) Ur Leukocyte Esterase (Negative) Urine WBC (0-5) /hpf Urine WBC Clumps (None) /hpf Ur Squamous Epith Cells (0-4) /hpf Urine Bacteria (None) /hpf Urine Mucus (None) /hpf Assessment and Plan Assessment: 1-patient who presented to hospital with elevated blood sugar in this patient also have elevated white count source more likely left lower extremity cellulitis likely streptococcal disease in this patient did have diffuse swelling redness patient did have a positive UA however no significant urinary symptoms more likely asymptomatic bacteriuria (1) Left leg cellulitis Current Visit: Yes Status: Acute Code(s): L03.116 - CELLULITIS OF LEFT LOWER LIMB SNOMED Code(s): 894095946 Plan: 1-Ross the area of redness both legs 2-discontinue the vancomycin to decrease the risk of nephrotoxicity 3-start the patient cefazolin 2 g every 8 hours 4-AUDRA wrap to both legs from just above the toe to below the knee We will follow-up clinical condition and cultures to further adjust medication if needed Thank you for this consultation will follow this patient along with you Time with Patient: Greater than 30
[2018-07-03] MEDS ORDERED: SODIUM CHLORIDE 0.9% 1,000 ML IV SCH (22:30)
[2018-07-04] MEDS: ceFAZolin IN SWFI 2 GM/20 ML SYRINGE IVP SCH ×3 (01:24→16:30)
[2018-07-04] MEDS: LEVOTHYROXINE 100 MCG TAB PO SCH (05:29)
[2018-07-04] MEDS ORDERED: VANCOMYCIN 2,000 MG in SODIUM CHLORIDE 0.9% 500 ML 500 ML IVPB SCH (06:00)
[2018-07-04 07:33] LABS: Glucose,Whole Blood 357 mg/dL (75-99)
[2018-07-04] MEDS: INSULIN ASPART (NovoLOG) 100 UNIT/ML VIAL SQ SCH ×3 (07:38→17:20)
[2018-07-04 07:52] LABS: Basophils # (A) 0.1 k/uL (0-0.2); Basophils % (A) 0 %; Eosinophils # (A) 0.3 k/uL (0-0.7); Eosinophils % (A) 2 %; HCT 36.3 % (34.0-46.0); HGB 10.8 gm/dL (11.4-16.0); Hypochromasia Slight; Lymphocytes # (A) 1.8 k/uL (1.0-4.8); Lymphocytes % (A) 15 %; MCH 27.7 pg (25.0-35.0); MCHC 29.8 g/dL (31.0-37.0); Mean Platelet Volume 7.7; Monocytes # (A) 0.5 k/uL (0-1.0); Monocytes % (A) 4 %; Neutrophils # (A) 9.9 k/uL (1.3-7.7); Neutrophils % (A) 78 %; Platelet Count 290 k/uL (150-450); RBC 3.91 m/uL (3.80-5.40); RDW 14.2 % (11.5-15.5); WBC 12.6 k/uL (3.8-10.6)
[2018-07-04 08:04] LABS: Calcium 8.4 mg/dL (8.4-10.2); Magnesium 1.1 mg/dL (1.6-2.3); Potassium 4.7 mmol/L (3.5-5.1)
[2018-07-04] MEDS: MORPHINE SULFATE 4 MG/ML SYRINGE IV PRN (08:44)
[2018-07-04] MEDS ORDERED: INSULIN DETEMIR (LEVEMIR) 100 UNIT/ML SYR SQ SCH (09:00)
[2018-07-04] MEDS: LOSARTAN 50 MG TAB PO SCH (09:25)
[2018-07-04] MEDS: LINAGLIPTIN 5 MG TABLET PO SCH (09:28)
[2018-07-04] MEDS: FUROSEMIDE 40 MG TAB PO SCH ×2 (09:28→16:24)
[2018-07-04] MEDS: metFORMIN 500 MG TAB PO SCH ×2 (09:28→20:22)
[2018-07-04] MEDS: CLOPIDOGREL 75 MG TAB PO SCH (09:28)
--- NOTE | 2018-07-04 09:56 | P.PN ---
Subjective Patient is seen in follow-up for acute kidney injury on chronic kidney disease. Patient has chronic kidney disease stage III. Baseline creatinine in the range of 1-1.2. Etiology is diabetic kidney disease. Patient presented to the hospital with elevated blood sugars. Blood sugar this morning was 345. Creatinine is up to 1.77. She's been treated for lower extremity cellulitis. Oral intake is fair. No vomiting or diarrhea. Vital signs are stable. General: The patient appeared well nourished and normally developed. HEENT: Head exam is unremarkable. Neck is without jugular venous distension. LUNGS: Lungs are clear to auscultation and percussion. Breath sounds decreased. HEART: Rate and Rhythm are regular. First and second heart sounds normal. No murmurs, rubs or gallops. ABDOMEN: Abdominal exam reveals normal bowel sounds. Non-tender and non- distended. No evidence of peritonitis. EXTREMITITES: 1+ edema. Erythema noted. Objective - Vital Signs Vital signs: Vital Signs Temp 98.5 F 07/04/18 07:32 Pulse 91 07/04/18 07:32 Resp 18 07/04/18 07:32 BP 97/65 07/04/18 07:32 Pulse Ox 94 L 07/04/18 07:32 Intake & Output 07/03/18 07/04/18 07/04/18 18:59 06:59 18:59 Intake Total 540 400 Output Total 1000 Balance -460 400 Intake: Intake, IV Titration 400 Amount Sodium Chloride 0.9% 1, 400 000 ml @ 50 mls/hr IV . Q20H [facility] Rx#:[id number] Oral 540 Output: Urine 1000 Other: Voiding Method Bedside Commode Bedside Commode # Voids 1 1 - Labs CBC & Chem 7: 07/04/18 07:25 07/04/18 07:25 Labs: Abnormal Lab Results - Last 24 Hours (Table) 07/03/18 07/03/18 07/03/18 Range/Units 11:08 17:13 20:06 WBC (3.8-10.6) k/uL Hgb (11.4-16.0) gm/dL MCHC (31.0-37.0) g/dL Neutrophils # (1.3-7.7) k/uL Sodium (137-145) mmol/L Chloride (98-107) mmol/L BUN (7-17) mg/dL Creatinine (0.52-1.04) mg/dL Glucose (74-99) mg/dL POC Glucose (mg/dL) 346 H 356 H 319 H (75-99) mg/dL Magnesium (1.6-2.3) mg/dL 07/04/18 07/04/18 07/04/18 Range/Units 07:13 07:25 07:25 WBC 12.6 H (3.8-10.6) k/uL Hgb 10.8 L (11.4-16.0) gm/dL MCHC 29.8 L (31.0-37.0) g/dL Neutrophils # 9.9 H (1.3-7.7) k/uL Sodium 132 L (137-145) mmol/L Chloride 96 L (98-107) mmol/L BUN 63 H (7-17) mg/dL Creatinine 1.77 H (0.52-1.04) mg/dL Glucose 345 H (74-99) mg/dL POC Glucose (mg/dL) 357 H (75-99) mg/dL Magnesium 1.1 L (1.6-2.3) mg/dL Microbiology - Last 24 Hours (Table) 07/03/18 13:08 Urine Culture - Preliminary Urine,Voided Assessment and Plan Plan: Assessment: 1. Chronic kidney disease stage III with baseline creatinine in the range of 1- 1.2 secondary to diabetic kidney disease. Renal ultrasound from April 2018 revealed no evidence of hydronephrosis. 2. Hyperglycemia. Most recent blood sugar 345. Patient has history of insulin-dependent diabetes mellitus. 3. Lower extremity edema. 4. Hypertension with chronic kidney disease. Blood pressures in the lower side. 5. UTI. Urine culture pending. 6. Lower extremity cellulitis maintained on antibiotics. Infectious disease following. 7. Hypertonic hyponatremia secondary to hyperglycemia. 8. Hypomagnesemia from diuresis. Plan: Maintain Lasix 40 mg orally twice daily. Discontinue Cozaar. Hep-Lock IV fluids. Replace magnesium. 4 g IV today. If renal function declines further, will discontinue metformin. Follow-up cultures. Continue to monitor renal function and urine output. Repeat electrolytes in the morning. Tight blood sugar control.
[2018-07-04] MEDS: MAGNESIUM SULFATE-D5W PMX 1 GM in DEXTROSE/WATER 1 100ML.BAG IVPB SCH ×4 (11:32→16:30)
[2018-07-04 11:39] LABS: Glucose,Whole Blood 328 mg/dL (75-99)
--- NOTE | 2018-07-04 12:21 | P.PN ---
Subjective This is a pleasant 58 years old female with past medical history of COPD, diabetes mellitus, fibromyalgia, hyperlipidemia, hypertension, osteoarthritis, sleep apnea on CPAP/BiPAP, during her bowel incontinence, recent history of diabetic foot ulcer and osteomyelitis, chronic kidney disease. Patient is wheelchair-bound and bedbound for a few months now as she was told me on her ex- at bedside. Patient presents this time because of uncontrolled sugar. She takes Levemir 70 units twice a day plus NovoLog 20 units 3 times with meals , plus metformin 500 twice a day. She says that usually her sugar is 300-400 range however yesterday was around 500 to hold a and her [id number] who who was taking care of her the whole day she got concerned and sent her to emergency room. However patient denies chest pain or dyspnea. No abdominal pain or nausea vomiting. She is eating well. Patient thought that she has infection in her urine because she sees what she thinks yeast in her urine. She does not have karen dysuria or suprapubic pain or tenderness. Patient Vitas looks stable, he is afebrile. Labs show WBC of 14.3 K. Creatini ne 1.23, baseline is 1.2-1.5. Liver enzymes not elevated. Sugar is 330-346. Urinalysis is suspicious for infection. Patient was already started on ceftriaxone and vancomycin in emergency room. 07/04/2018 Patien fully awake on oriented however she feels sleepy at times as per staff. She is currently on morphine 4 mg every 4 hours. We got her lower that to 2 mg every 8 hours when necessary. She denies chest pain or dyspnea. No abdominal complaints. No urinary symptoms like no dysuria or change in frequency. She complains from burning at her leg sides for the cellulitis are. Docusate already evaluated the patient and change her antibiotics to cefazolin. IV vancomycin which was started in the emergency room was stopped since yesterday. Her creatinine today is slightly worse from 1.3 up to 1.7. Her sugar is not controlled and is in the 350s. We'll increase Levemir to 18 units twice a day, and increase NovoLog from 20 up to 30 units before meals 3 times a day. Continue with insulin sliding scale. Leukocytosis shown some improvement from 14,000-12.6 K. Hemoglobin stable. Low magnesium of 1.1 is being replaced. Liver enzymes not elevated. Nephrology input is appreciated, discontinue Cozaar and monitor creatinine and possible DC metformin if still worsening kidney f unction Review of systems CONSTITUTIONAL: No fever HEENT: No recent visual problems or hearing problems. Denied any sore throat. CARDIOVASCULAR: No orthopnea, PND, no palpitations, no syncope. PULMONARY: No shortness of breath, no cough, no hemoptysis. GASTROINTESTINAL: No diarrhea, no nausea, no vomiting, no abdominal pain. Normoactive bowel sounds. -NEUROLOGICAL: No headaches, no weakness, no numbness. Patient is bedbound HEMATOLOGICAL: Denies any bleeding or petechiae. GENITOURINARY: Denies any burning micturition, frequency, or urgency. ENDOCRINE: Denies any polyuria or polydipsia. Medication: Tylenol 650 mg, Lipitor 40 mg cefazolin 2 g, Plavix 75 mg, Lasix 40 mg, insulin NovoLog 30 units, Levemir 80 units, levothyroxine 100 g, Lesly Rai 5 mg, magnesium sulfate 1 g, metformin 500 mg, morphine sulfate 2 mg Objective - Vital Signs Vital signs: Vital Signs Temp 98.5 F 07/04/18 07:32 Pulse 91 07/04/18 07:32 Resp 18 07/04/18 08:00 BP 97/65 07/04/18 07:32 Pulse Ox 94 L 07/04/18 07:32 Intake & Output 07/03/18 07/04/18 07/04/18 18:59 06:59 18:59 Intake Total 540 400 Output Total 1000 Balance -460 400 Intake: Intake, IV Titration 400 Amount Sodium Chloride 0.9% 1, 400 000 ml @ 50 mls/hr IV . Q20H COUNT [facility]CLUDES [facility] Rx#:[id number] Oral 540 Output: Urine 1000 Other: Voiding Method Bedside Commode Bedside Commode Bedside Commode # Voids 1 1 - Labs CBC & Chem 7: 07/04/18 07:25 07/04/18 07:25 Labs: Abnormal Lab Results - Last 24 Hours (Table) 07/03/18 07/03/18 07/04/18 Range/Units 17:13 20:06 07:13 WBC (3.8-10.6) k/uL Hgb (11.4-16.0) gm/dL MCHC (31.0-37.0) g/dL Neutrophils # (1.3-7.7) k/uL Sodium (137-145) mmol/L Chloride (98-107) mmol/L BUN (7-17) mg/dL Creatinine (0.52-1.04) mg/dL Glucose (74-99) mg/dL POC Glucose (mg/dL) 356 H 319 H 357 H (75-99) mg/dL Magnesium (1.6-2.3) mg/dL 07/04/18 07/04/18 07/04/18 Range/Units 07:25 07:25 11:27 WBC 12.6 H (3.8-10.6) k/uL Hgb 10.8 L (11.4-16.0) gm/dL MCHC 29.8 L (31.0-37.0) g/dL Neutrophils # 9.9 H (1.3-7.7) k/uL Sodium 132 L (137-145) mmol/L Chloride 96 L (98-107) mmol/L BUN 63 H (7-17) mg/dL Creatinine 1.77 H (0.52-1.04) mg/dL Glucose 345 H (74-99) mg/dL POC Glucose (mg/dL) 328 H (75-99) mg/dL Magnesium 1.1 L (1.6-2.3) mg/dL Microbiology - Last 24 Hours (Table) 07/03/18 13:08 Urine Culture - Preliminary Urine,Voided Assessment and Plan Assessment: Bilateral lower extremity cellulitis, more on the left Acute on chronic kidney injury Asymptomatic bacteriuria Uncontrolled hyperglycemia Type 2 diabetes mellitus Diabetic nephropathy, stage III chronic kidney disease Diabetic neuropathy Hypertension Hyperlipidemia COPD, not in acute exacerbation History of osteoarthritis Sleep apnea on CPAP/BiPAP Patient is bedbound Plan: This is a pleasant 58s old female who presents with uncontrolled diabetes and cellulitis and kidney disease. infectious disease consult for antibiotic adjustment. Follow-up urine culture results. We ordered urine culture and blood culture. Increase her insulin dose and follow-up her Accu-Cheks with insulin sliding scale. Nephrology consult is appreciated. Monitor renal function. Labs and medication were reviewed.. Continue same treatment. Continue with symptomatic treatment. Resume home medication. Monitor lytes and vitals. DVT and GI prophylaxis. Further recommendations of the clinical course of the patient DVT prophylaxis: Subcutaneous heparin GI Prophylaxis: Pepcid Prognosis is guarded
[2018-07-04] MEDS: MORPHINE SULFATE 2 MG/ML SYRINGE IV PRN (16:30)
[2018-07-04 17:07] LABS: Glucose,Whole Blood 346 mg/dL (75-99)
[2018-07-04 17:15] VITALS: BMI 50.8
--- NOTE | 2018-07-04 19:53 | PN ---
PROGRESS NOTE DATE OF SERVICE: 07/04/2018. REASON FOR FOLLOWUP: Left lower extremity cellulitis. INTERVAL HISTORY: The patient is currently afebrile. The patient has been breathing comfortably. No chest pain or any cough. Still complaining of pain and swelling to the left leg area. No abdominal pain no diarrhea. PHYSICAL EXAMINATION: Blood pressure 104/59 with a pulse of 87, temperature 98.1. She is 95% on room air. General description is a middle-aged female up in the chair in no distress. Respiratory system: Unlabored breathing. Clear to auscultation anteriorly. HEART: S1, S2. Regular rate and rhythm. Abdomen soft. No tenderness. Left leg still has more swelling as compared to the right leg. LABS: Hemoglobin is 10 with white count 12.6, BUN of 63, creatinine 1.77. DIAGNOSTIC IMPRESSION AND PLAN: Patient with acute left lower extremity cellulitis. The patient at this time will continue with cefazolin 2 g. Also advised local wound care with Medihoney followed by moist dressing and Roel wrap. Continue supportive care. MMODL / IJN: [id number] /
[2018-07-04 20:09] LABS: Glucose,Whole Blood 319 mg/dL (75-99)
[2018-07-04] MEDS: ATORVASTATIN 40 MG TAB PO SCH (20:21)
[2018-07-04] MEDS ORDERED: INSULIN DETEMIR (LEVEMIR) 100 UNIT/ML SYR SQ ONE (21:00)
[2018-07-04] MEDS: INSULIN DETEMIR (LEVEMIR) 100 UNIT/ML SYR SQ SCH (21:55)
[2018-07-04 22:03] LABS: Glucose,Whole Blood 349 mg/dL (75-99)
[2018-07-05] MEDS: ceFAZolin IN SWFI 2 GM/20 ML SYRINGE IVP SCH ×3 (00:41→16:17)
[2018-07-05] MEDS: MORPHINE SULFATE 2 MG/ML SYRINGE IV PRN ×3 (00:41→17:09)
[2018-07-05] MEDS: LEVOTHYROXINE 100 MCG TAB PO SCH (06:12)
[2018-07-05 07:11] LABS: Glucose,Whole Blood 345 mg/dL (75-99)
[2018-07-05] MEDS: INSULIN ASPART (NovoLOG) 100 UNIT/ML VIAL SQ SCH ×3 (07:13→16:57)
[2018-07-05 07:41] LABS: Basophils # (A) 0.1 k/uL (0-0.2); Basophils % (A) 0 %; Eosinophils # (A) 0.3 k/uL (0-0.7); Eosinophils % (A) 2 %; HCT 34.2 % (34.0-46.0); HGB 10.8 gm/dL (11.4-16.0); Lymphocytes % (A) 18 %; MCH 28.8 pg (25.0-35.0); MCHC 31.8 g/dL (31.0-37.0); MCV 90.8 fL (80.0-100.0); Mean Platelet Volume 7.7; Monocytes # (A) 0.4 k/uL (0-1.0); Monocytes % (A) 4 %; Neutrophils # (A) 8.4 k/uL (1.3-7.7); Neutrophils % (A) 74 %; Platelet Count 276 k/uL (150-450); RBC 3.76 m/uL (3.80-5.40); RDW 14.1 % (11.5-15.5); WBC 11.3 k/uL (3.8-10.6)
[2018-07-05 08:03] LABS: Magnesium 1.7 mg/dL (1.6-2.3); Potassium 4.9 mmol/L (3.5-5.1)
[2018-07-05] MEDS: FUROSEMIDE 40 MG TAB PO SCH ×2 (08:37→16:18)
[2018-07-05] MEDS: CLOPIDOGREL 75 MG TAB PO SCH (08:37)
[2018-07-05] MEDS: LINAGLIPTIN 5 MG TABLET PO SCH (08:37)
[2018-07-05] MEDS: metFORMIN 500 MG TAB PO SCH ×2 (08:37→21:42)
[2018-07-05] MEDS: INSULIN DETEMIR (LEVEMIR) 100 UNIT/ML SYR SQ SCH ×2 (08:37→21:42)
--- NOTE | 2018-07-05 09:16 | P.PN ---
Subjective Patient is seen in follow-up for acute kidney injury on chronic kidney disease. Patient has chronic kidney disease stage III. Baseline creatinine in the range of 1-1.2. Etiology is diabetic kidney disease. Patient presented to the hospital with elevated blood sugars. Blood sugar this morning was 326. Creatinine peaked at 1.77 yesterday and is 1.65 today. She's been treated for lower extremity cellulitis. Oral intake is fair. No vomiting or diarrhea. Vital signs are stable. General: The patient appeared well nourished and normally developed. HEENT: Head exam is unremarkable. Neck is without jugular venous distension. LUNGS: Lungs are clear to auscultation and percussion. Breath sounds decreased. HEART: Rate and Rhythm are regular. First and second heart sounds normal. No murmurs, rubs or gallops. ABDOMEN: Abdominal exam reveals normal bowel sounds. Non-tender and non- distended. No evidence of peritonitis. EXTREMITITES: 1+ edema. Erythema noted. Objective - Vital Signs Vital signs: Vital Signs Temp 97.7 F 07/05/18 07:00 Pulse 82 07/05/18 07:00 Resp 16 07/05/18 07:00 BP 132/74 07/05/18 07:00 Pulse Ox 95 07/05/18 07:00 Intake & Output 07/04/18 07/05/18 07/05/18 18:59 06:59 18:59 Intake Total 1600 Balance 1600 Weight 130.181 kg Intake: Intake, IV Titration 1200 Amount Magnesium Sulfate-D5w Pmx 400 1 gm In Dextrose/Water 1 100ml.bag @ 100 mls/hr IVPB Q1H [facility] Rx#: [id number] Sodium Chloride 0.9% 1, 800 000 ml @ 50 mls/hr IV . Q20H [facility] Rx#:[id number] Oral 400 Other: Voiding Method Bedside Commode Toilet # Voids 3 - Labs CBC & Chem 7: 07/05/18 07:10 07/05/18 07:10 Labs: Abnormal Lab Results - Last 24 Hours (Table) 07/04/18 07/04/18 07/04/18 Range/Units 11:27 17:06 19:57 WBC (3.8-10.6) k/uL RBC (3.80-5.40) m/uL Hgb (11.4-16.0) gm/dL Neutrophils # (1.3-7.7) k/uL Sodium (137-145) mmol/L Chloride (98-107) mmol/L BUN (7-17) mg/dL Creatinine (0.52-1.04) mg/dL Glucose (74-99) mg/dL POC Glucose (mg/dL) 328 H 346 H 319 H (75-99) mg/dL 07/04/18 07/05/18 07/05/18 Range/Units 21:52 06:59 07:10 WBC 11.3 H (3.8-10.6) k/uL RBC 3.76 L (3.80-5.40) m/uL Hgb 10.8 L (11.4-16.0) gm/dL Neutrophils # 8.4 H (1.3-7.7) k/uL Sodium (137-145) mmol/L Chloride (98-107) mmol/L BUN (7-17) mg/dL Creatinine (0.52-1.04) mg/dL Glucose (74-99) mg/dL POC Glucose (mg/dL) 349 H 345 H (75-99) mg/dL 07/05/18 Range/Units 07:10 WBC (3.8-10.6) k/uL RBC (3.80-5.40) m/uL Hgb (11.4-16.0) gm/dL Neutrophils # (1.3-7.7) k/uL Sodium 132 L (137-145) mmol/L Chloride 97 L (98-107) mmol/L BUN 63 H (7-17) mg/dL Creatinine 1.65 H (0.52-1.04) mg/dL Glucose 326 H (74-99) mg/dL POC Glucose (mg/dL) (75-99) mg/dL Microbiology - Last 24 Hours (Table) 07/03/18 13:08 Urine Culture - Preliminary Urine,Voided Gram Neg Bacilli 07/03/18 15:04 Blood Culture - Preliminary Blood No Growth after 24 hours Assessment and Plan Plan: Assessment: 1. Chronic kidney disease stage III with baseline creatinine in the range of 1- 1.2 secondary to diabetic kidney disease. Renal ultrasound from April 2018 revealed no evidence of hydronephrosis. 2. Hyperglycemia. Most recent blood sugar 326. Patient has history of insulin-dependent diabetes mellitus. 3. Lower extremity edema. 4. Hypertension with chronic kidney disease. Controlled. 5. UTI. Urine culture positive for gram-negative bacilli. 6. Lower extremity cellulitis maintained on antibiotics. Infectious disease following. 7. Hypertonic hyponatremia secondary to hyperglycemia. Corrected sodium is in the normal range. 8. Hypomagnesemia from diuresis. Improved post replacement. Plan: Maintain Lasix 40 mg orally twice daily. Continue to hold Cozaar. Replace magnesium. 2 g IV today. Follow-up cultures. Continue to monitor renal function and urine output. Repeat electrolytes in the morning. Tight blood sugar control. Avoid metformin if GFR below 30.
[2018-07-05] MEDS: MAGNESIUM SULFATE-D5W PMX 1 GM in DEXTROSE/WATER 1 100ML.BAG IVPB SCH ×2 (09:52→10:57)
[2018-07-05 11:46] LABS: Glucose,Whole Blood 349 mg/dL (75-99)
--- NOTE | 2018-07-05 14:48 | PN ---
PROGRESS NOTE DATE OF SERVICE: 07/05/2018 REASON FOR FOLLOWUP: Left lower extremity cellulitis with wound. INTERVAL HISTORY: The patient is currently afebrile. Patient has been breathing comfortably. Denies any chest pain or any cough. No abdominal pain. No diarrhea. Still having pain to the left leg area. PHYSICAL EXAMINATION: Blood pressure 132/74 with a pulse of 82, temperature 97.7, he is 95% on room air. General description is a middle-aged female, up in the chair in no distress. RESPIRATORY SYSTEM: Unlabored breathing, clear to auscultation anteriorly. HEART: S1, S2. Regular rate and rhythm. The left leg swelling and redness has slightly decreased. Did have superficial wound on the nova area but apparently the right foot previous surgical site did have a dry, scabby wound with no slough tissue. LABS: Hemoglobin is 10.1, white count of 11.3 with a BUN of 63, creatinine 1.65. Urine showing gram-negative. DIAGNOSTIC IMPRESSION AND PLAN: 1. Patient admitted to the hospital with elevated blood sugar in this patient with left lower extremity cellulitis, currently responding to Cefazolin to continue Medihoney to the left leg wound, otherwise, no specific dressing to the right foot, toe amputated site . 2. Positive urine culture with gram-negative in this patient currently with no urinary symptoms. Clinically doubt true urinary tract infection. No need for any systemic antibiotic therapy for the same. MMODL / IJN: [id number] / MTDD
--- NOTE | 2018-07-05 14:50 | P.PN ---
Subjective This is a pleasant 58 years old female with past medical history of COPD, diabetes mellitus, fibromyalgia, hyperlipidemia, hypertension, osteoarthritis, sleep apnea on CPAP/BiPAP, during her bowel incontinence, recent history of diabetic foot ulcer and osteomyelitis, chronic kidney disease. Patient is wheelchair-bound and bedbound for a few months now as she was told me on her ex- at bedside. Patient presents this time because of uncontrolled sugar. She takes Levemir 70 units twice a day plus NovoLog 20 units 3 times with meals , plus metformin 500 twice a day. She says that usually her sugar is 300-400 range however yesterday was around 500 to hold a and her [id number] who who was taking care of her the whole day she got concerned and sent her to emergency room. However patient denies chest pain or dyspnea. No abdominal pain or nausea vomiting. She is eating well. Patient thought that she has infection in her urine because she sees what she thinks yeast in her urine. She does not have karen dysuria or suprapubic pain or tenderness. Patient Vitas looks stable, he is afebrile. Labs show WBC of 14.3 K. Creatini ne 1.23, baseline is 1.2-1.5. Liver enzymes not elevated. Sugar is 330-346. Urinalysis is suspicious for infection. Patient was already started on ceftriaxone and vancomycin in emergency room. 07/04/2018 Patien fully awake on oriented however she feels sleepy at times as per staff. She is currently on morphine 4 mg every 4 hours. We got her lower that to 2 mg every 8 hours when necessary. She denies chest pain or dyspnea. No abdominal complaints. No urinary symptoms like no dysuria or change in frequency. She complains from burning at her leg sides for the cellulitis are. Docusate already evaluated the patient and change her antibiotics to cefazolin. IV vancomycin which was started in the emergency room was stopped since yesterday. Her creatinine today is slightly worse from 1.3 up to 1.7. Her sugar is not controlled and is in the 350s. We'll increase Levemir to 18 units twice a day, and increase NovoLog from 20 up to 30 units before meals 3 times a day. Continue with insulin sliding scale. Leukocytosis shown some improvement from 14,000-12.6 K. Hemoglobin stable. Low magnesium of 1.1 is being replaced. Liver enzymes not elevated. Nephrology input is appreciated, discontinue Cozaar and monitor creatinine and possible DC metformin if still worsening kidney f unction 07/05/2018 Patient feels better. She is more awake and alert. She still been on antibioti cs for her cellulitis in the lower extremity. Hemodynamically stable. Leukocytosis improving. Creatinine down to 1.6. Nephrology team or infectious disease teams are following the. Sugar was uncontrolled and insulin is increased, keep monitoring sugar. Urine culture showing gram-negative bacilli however patient unlikely has UTI. Objective - Vital Signs Vital signs: Vital Signs Temp 98.2 F 07/05/18 14:28 Pulse 84 07/05/18 14:28 Resp 16 07/05/18 14:28 BP 123/77 07/05/18 14:28 Pulse Ox 94 L 07/05/18 14:28 Intake & Output 07/04/18 07/05/18 07/05/18 18:59 06:59 18:59 Intake Total 1600 240 Balance 1600 240 Weight 130.181 kg Intake: Intake, IV Titration 1200 Amount Magnesium Sulfate-D5w Pmx 400 1 gm In Dextrose/Water 1 100ml.bag @ 100 mls/hr IVPB Q1H [facility] Rx#: [id number] Sodium Chloride 0.9% 1, 800 000 ml @ 50 mls/hr IV . Q20H [facility] Rx#:[id number] Oral 400 240 Other: Voiding Method Bedside Commode Toilet Toilet # Voids 3 3 - Exam GENERAL: The patient is alert and oriented x3, not in any acute distress. Obese HEENT: Pupils are round and equally reacting to light. EOMI. No scleral icterus. No conjunctival pallor. Normocephalic, atraumatic. No pharyngeal erythema. No thyromegaly. CARDIOVASCULAR: S1 and S2 present. No murmurs, rubs, or gallops. PULMONARY: Chest is clear to auscultation, no wheezing or crackles. ABDOMEN: Soft, nontender, nondistended, normoactive bowel sounds. No palpable organomegaly. MUSCULOSKELETAL: No joint swelling or deformity. -EXTREMITIES: No cyanosis, clubbing, or pedal edema. Bilateral lower extremity redness on the front legs with no evidence of cellulitis, it looks chronic dermatitis. Status post right toe amputation. -NEUROLOGICAL: Gross neurological examination did not reveal any focal deficits. Patient is bedbound for a few months SKIN: No rashes. - Labs CBC & Chem 7: 07/05/18 07:10 07/05/18 07:10 Labs: Abnormal Lab Results - Last 24 Hours (Table) 07/04/18 07/04/18 07/04/18 Range/Units 17:06 19:57 21:52 WBC (3.8-10.6) k/uL RBC (3.80-5.40) m/uL Hgb (11.4-16.0) gm/dL Neutrophils # (1.3-7.7) k/uL Sodium (137-145) mmol/L Chloride (98-107) mmol/L BUN (7-17) mg/dL Creatinine (0.52-1.04) mg/dL Glucose (74-99) mg/dL POC Glucose (mg/dL) 346 H 319 H 349 H (75-99) mg/dL 07/05/18 07/05/18 07/05/18 Range/Units 06:59 07:10 07:10 WBC 11.3 H (3.8-10.6) k/uL RBC 3.76 L (3.80-5.40) m/uL Hgb 10.8 L (11.4-16.0) gm/dL Neutrophils # 8.4 H (1.3-7.7) k/uL Sodium 132 L (137-145) mmol/L Chloride 97 L (98-107) mmol/L BUN 63 H (7-17) mg/dL Creatinine 1.65 H (0.52-1.04) mg/dL Glucose 326 H (74-99) mg/dL POC Glucose (mg/dL) 345 H (75-99) mg/dL 07/05/18 Range/Units 11:35 WBC (3.8-10.6) k/uL RBC (3.80-5.40) m/uL Hgb (11.4-16.0) gm/dL Neutrophils # (1.3-7.7) k/uL Sodium (137-145) mmol/L Chloride (98-107) mmol/L BUN (7-17) mg/dL Creatinine (0.52-1.04) mg/dL Glucose (74-99) mg/dL POC Glucose (mg/dL) 349 H (75-99) mg/dL Microbiology - Last 24 Hours (Table) 07/03/18 13:08 Urine Culture - Preliminary Urine,Voided Gram Neg Bacilli 07/03/18 15:04 Blood Culture - Preliminary Blood No Growth after 24 hours Assessment and Plan Assessment: Bilateral lower extremity cellulitis, more on the left Acute on chronic kidney injury Asymptomatic bacteriuria Uncontrolled hyperglycemia Type 2 diabetes mellitus Diabetic nephropathy, stage III chronic kidney disease Diabetic neuropathy Hypertension Hyperlipidemia COPD, not in acute exacerbation History of osteoarthritis Sleep apnea on CPAP/BiPAP Patient is bedbound Plan: This is a pleasant 58s old female who presents with uncontrolled diabetes and cellulitis and kidney disease. infectious disease consult for antibiotic adjustment. Follow-up urine culture results. We ordered urine culture and blood culture. Increase her insulin dose and follow-up her Accu-Cheks with insulin sliding scale. Nephrology consult is appreciated. Monitor renal function. Labs and medication were reviewed.. Continue same treatment. Continue with symptomatic treatment. Resume home medication. Monitor lytes and vitals. DVT and GI prophylaxis. Further recommendations of the clinical course of the patient DVT prophylaxis: Subcutaneous heparin GI Prophylaxis: Pepcid Prognosis is guarded
[2018-07-05 16:33] LABS: Glucose,Whole Blood 342 mg/dL (75-99)
[2018-07-05 20:54] LABS: Glucose,Whole Blood 303 mg/dL (75-99)
[2018-07-05] MEDS: ATORVASTATIN 40 MG TAB PO SCH (21:42)
[2018-07-06] MEDS: ceFAZolin IN SWFI 2 GM/20 ML SYRINGE IVP SCH ×4 (02:02→22:51)
[2018-07-06] MEDS: MORPHINE SULFATE 2 MG/ML SYRINGE IV PRN ×3 (02:02→22:50)
[2018-07-06 06:59] LABS: Glucose,Whole Blood 324 mg/dL (75-99)
[2018-07-06 07:00] LABS: Basophils # (A) 0.1 k/uL (0-0.2); Basophils % (A) 1 %; Eosinophils # (A) 0.3 k/uL (0-0.7); Eosinophils % (A) 3 %; HCT 33.8 % (34.0-46.0); HGB 10.4 gm/dL (11.4-16.0); Lymphocytes # (A) 1.8 k/uL (1.0-4.8); Lymphocytes % (A) 19 %; MCHC 30.7 g/dL (31.0-37.0); MCV 91.2 fL (80.0-100.0); Mean Platelet Volume 8.3; Monocytes # (A) 0.4 k/uL (0-1.0); Monocytes % (A) 4 %; Neutrophils # (A) 6.9 k/uL (1.3-7.7); Neutrophils % (A) 72 %; Platelet Count 276 k/uL (150-450); RBC 3.71 m/uL (3.80-5.40); RDW 14.9 % (11.5-15.5); WBC 9.6 k/uL (3.8-10.6)
[2018-07-06 07:13] LABS: Calcium 9.6 mg/dL (8.4-10.2); Potassium 4.8 mmol/L (3.5-5.1)
[2018-07-06] MEDS: LEVOTHYROXINE 100 MCG TAB PO SCH (07:20)
[2018-07-06] MEDS: LINAGLIPTIN 5 MG TABLET PO SCH (07:42)
[2018-07-06] MEDS: INSULIN ASPART (NovoLOG) 100 UNIT/ML VIAL SQ SCH ×3 (07:42→17:32)
[2018-07-06] MEDS: metFORMIN 500 MG TAB PO SCH ×3 (07:42→21:21)
[2018-07-06] MEDS: CLOPIDOGREL 75 MG TAB PO SCH (07:42)
[2018-07-06] MEDS: FUROSEMIDE 40 MG TAB PO SCH ×2 (07:42→17:33)
[2018-07-06] MEDS: INSULIN DETEMIR (LEVEMIR) 100 UNIT/ML SYR SQ SCH ×2 (08:42→21:21)
--- NOTE | 2018-07-06 09:30 | P.PN ---
Subjective Progress Note Date: 07/06/18 Principal diagnosis: This is a 58-year-old female admitted with chronic kidney disease, acute kidney injury, uncontrolled diabetes UTI and cellulitis of the left lower extremity. The cause of her acute kidney injury is deemed to be from prerenal from about. She is on Lasix because of edema. Her Cozaar was on hold. She also had hypomagnesemia secondary to diuresis and has resolved with replacement. She has E. coli UTI. Her blood sugar remains somewhat high in the 300 range This morning she is feeling fair standing Up on her sleep. Denies any nausea vomiting diarrhea abdominal pain dysuria frequency. Objective - Vital Signs Vital signs: Vital Signs Temp 98.1 F 07/06/18 07:00 Pulse 86 07/06/18 07:00 Resp 16 07/06/18 07:00 BP 102/44 07/06/18 07:00 Pulse Ox 96 07/06/18 07:00 Intake & Output 07/05/18 07/06/18 07/06/18 18:59 06:59 18:59 Intake Total 240 Balance 240 Intake: Oral 240 Other: Voiding Method Toilet Toilet Diaper # Voids 3 1 On examination she is somewhat obese, comfortable HEENT exam no JVP neck is supple no facial asymmetry Lungs are clear to auscultation fair air entry bilaterally Heart sounds are unremarkable for any murmur rub gallop Abdomen soft obese nontender Extremity exam was moderate edema. She has Roel wrapping on her left leg the right leg has some dry scaly erythematous areas which are nontender Neurologically awake alert oriented - Labs CBC & Chem 7: 07/06/18 06:22 07/06/18 06:22 Labs: Abnormal Lab Results - Last 24 Hours (Table) 07/05/18 07/05/18 07/05/18 Range/Units 11:35 16:21 20:43 RBC (3.80-5.40) m/uL Hgb (11.4-16.0) gm/dL Hct (34.0-46.0) % MCHC (31.0-37.0) g/dL Sodium (137-145) mmol/L BUN (7-17) mg/dL Creatinine (0.52-1.04) mg/dL Glucose (74-99) mg/dL POC Glucose (mg/dL) 349 H 342 H 303 H (75-99) mg/dL 07/06/18 07/06/18 07/06/18 Range/Units 06:22 06:22 06:45 RBC 3.71 L (3.80-5.40) m/uL Hgb 10.4 L (11.4-16.0) gm/dL Hct 33.8 L (34.0-46.0) % MCHC 30.7 L (31.0-37.0) g/dL Sodium 136 L (137-145) mmol/L BUN 68 H (7-17) mg/dL Creatinine 1.41 H (0.52-1.04) mg/dL Glucose 321 H (74-99) mg/dL POC Glucose (mg/dL) 324 H (75-99) mg/dL Microbiology - Last 24 Hours (Table) 07/03/18 13:08 Urine Culture - Final Urine,Voided Escherichia coli 07/03/18 15:04 Blood Culture - Preliminary Blood No Growth after 48 hours Assessment and Plan Assessment: Impression 1. Acute kidney injury, likely from prerenal from UTI and hyperglycemia with intravascular volume depletion. Improving now with creatinine down from a peak of 1.7-1.41 this morning. Part of the improvement may be coming off of the Cozaar. 2. Chronic kidney disease stage I to 2, GFR is greater than 60, Baseline is very varying from 0.742 0.8 as of 04/23/2018 and 01/13/2018. Has significant proteinuria about microalbumin to creatinine ratio of 986 dated 03/11/2015. 3. E. coli UTI sensitive to multiple antibiotics except for the Cipro and levofloxacin, currently on cefazolin IV. 4. Mild to moderate edema on Lasix 40 twice a day by mouth. 5. Blood sugar uncontrolled currently on medications including insulin and Tradjenta. Recommendation 1. Maintain antibiotic coverage may be changed to by mouth we will defer to infectious disease fundraising consultant on the case. 2. Maintain Lasix for now because of the edema. 3. Blood sugar control. 4. We will resume her ARB and a day or 2
[2018-07-06 11:59] LABS: Glucose,Whole Blood 386 mg/dL (75-99)
[2018-07-06 16:42] LABS: Glucose,Whole Blood 312 mg/dL (75-99)
--- NOTE | 2018-07-06 20:06 | PN ---
PROGRESS NOTE DATE OF SERVICE: 07/06/2018. REASON FOR FOLLOWUP: Left leg wound and cellulitis. INTERVAL HISTORY: The patient is currently afebrile. Patient has been breathing comfortably. No chest pain or cough. No abdominal pain. Still complains of significant pain to his left leg area. Did have swelling but no redness to the leg or drainage. PHYSICAL EXAMINATION: Blood pressure 140/82 with a pulse of 84. Temperature 97.9. She is 93% on room air. General description is a middle-aged female lying in bed in no distress. Respiratory system: Unlabored breathing. Clear to auscultation. Heart S1, S2. Regular rate and rhythm. Abdomen soft. No tenderness. Left leg did have significant swelling. Overall redness has almost resolved. Some superficial wound, but no drainage. LABS: Hemoglobin is 10.4, white count 9.2, BUN of 68, creatinine 1.41. DIAGNOSTIC IMPRESSION AND PLAN: 1. Patient admitted to the hospital with fever, source is left lower extremity wound with secondary cellulitis. The patient is currently responding to the Cefazolin. Continue local care with Medihoney and wide compression dressings were discussed with the nurse. 2. Positive culture with E coli, more likely asymptomatic bacteriuria, that should be covered with the cefazolin the patient already on. 3. Continue supportive care. MMODL / IJN: [id number] / ALTAGRACIA
[2018-07-06 20:12] LABS: Glucose,Whole Blood 329 mg/dL (75-99)
--- NOTE | 2018-07-06 20:27 | P.PN ---
Subjective This is a pleasant 58 years old female with past medical history of COPD, diabetes mellitus, fibromyalgia, hyperlipidemia, hypertension, osteoarthritis, sleep apnea on CPAP/BiPAP, during her bowel incontinence, recent history of diabetic foot ulcer and osteomyelitis, chronic kidney disease. Patient is wheelchair-bound and bedbound for a few months now as she was told me on her ex- at bedside. Patient presents this time because of uncontrolled sugar. She takes Levemir 70 units twice a day plus NovoLog 20 units 3 times with meals , plus metformin 500 twice a day. She says that usually her sugar is 300-400 range however yesterday was around 500 to hold a and her [id number] who who was taking care of her the whole day she got concerned and sent her to emergency room. However patient denies chest pain or dyspnea. No abdominal pain or nausea vomiting. She is eating well. Patient thought that she has infection in her urine because she sees what she thinks yeast in her urine. She does not have karen dysuria or suprapubic pain or tenderness. Patient Vitas looks stable, he is afebrile. Labs show WBC of 14.3 K. Creatini ne 1.23, baseline is 1.2-1.5. Liver enzymes not elevated. Sugar is 330-346. Urinalysis is suspicious for infection. Patient was already started on ceftriaxone and vancomycin in emergency room. 07/04/2018 Patien fully awake on oriented however she feels sleepy at times as per staff. She is currently on morphine 4 mg every 4 hours. We got her lower that to 2 mg every 8 hours when necessary. She denies chest pain or dyspnea. No abdominal complaints. No urinary symptoms like no dysuria or change in frequency. She complains from burning at her leg sides for the cellulitis are. Docusate already evaluated the patient and change her antibiotics to cefazolin. IV vancomycin which was started in the emergency room was stopped since yesterday. Her creatinine today is slightly worse from 1.3 up to 1.7. Her sugar is not controlled and is in the 350s. We'll increase Levemir to 18 units twice a day, and increase NovoLog from 20 up to 30 units before meals 3 times a day. Continue with insulin sliding scale. Leukocytosis shown some improvement from 14,000-12.6 K. Hemoglobin stable. Low magnesium of 1.1 is being replaced. Liver enzymes not elevated. Nephrology input is appreciated, discontinue Cozaar and monitor creatinine and possible DC metformin if still worsening kidney f unction 07/05/2018 Patient feels better. She is more awake and alert. She still been on antibioti cs for her cellulitis in the lower extremity. Hemodynamically stable. Leukocytosis improving. Creatinine down to 1.6. Nephrology team or infectious disease teams are following the. Sugar was uncontrolled and insulin is increased, keep monitoring sugar. Urine culture showing gram-negative bacilli however patient unlikely has UTI. 07/06/2018 pt is awake and breathing quietly ,is complaining from pain in her left leg. erythemia is improving , changed dressing today. vitals are stable sugar is around 300 . pt creatinine is down to 1.4. increase novolog insulin from 30 to 40 U with meals. infectous disease consult is appreciated. no chest pain or dyspnea , pt with no abd pain . Objective - Vital Signs Vital signs: Vital Signs Temp 98.0 F 07/06/18 19:26 Pulse 84 07/06/18 19:26 Resp 16 07/06/18 19:26 BP 154/66 07/06/18 19:26 Pulse Ox 96 07/06/18 19:26 Intake & Output 07/06/18 07/06/18 07/07/18 06:59 18:59 06:59 Other: Voiding Method Toilet Diaper # Voids 1 2 - Exam GENERAL: The patient is alert and oriented x3, not in any acute distress. Obese HEENT: Pupils are round and equally reacting to light. EOMI. No scleral icterus. No conjunctival pallor. Normocephalic, atraumatic. No pharyngeal erythema. No thyromegaly. CARDIOVASCULAR: S1 and S2 present. No murmurs, rubs, or gallops. PULMONARY: Chest is clear to auscultation, no wheezing or crackles. ABDOMEN: Soft, nontender, nondistended, normoactive bowel sounds. No palpable organomegaly. MUSCULOSKELETAL: No joint swelling or deformity. -EXTREMITIES: No cyanosis, clubbing, or pedal edema. Bilateral lower extremity redness on the front legs with no evidence of cellulitis, it looks chronic dermatitis. Status post right toe amputation. -NEUROLOGICAL: Gross neurological examination did not reveal any focal deficits. Patient is bedbound for a few months SKIN: No rashes. - Labs CBC & Chem 7: 07/06/18 06:22 07/06/18 06:22 Labs: Abnormal Lab Results - Last 24 Hours (Table) 07/05/18 07/06/18 07/06/18 Range/Units 20:43 06:22 06:22 RBC 3.71 L (3.80-5.40) m/uL Hgb 10.4 L (11.4-16.0) gm/dL Hct 33.8 L (34.0-46.0) % MCHC 30.7 L (31.0-37.0) g/dL Sodium 136 L (137-145) mmol/L BUN 68 H (7-17) mg/dL Creatinine 1.41 H (0.52-1.04) mg/dL Glucose 321 H (74-99) mg/dL POC Glucose (mg/dL) 303 H (75-99) mg/dL 07/06/18 07/06/18 07/06/18 Range/Units 06:45 11:43 16:40 RBC (3.80-5.40) m/uL Hgb (11.4-16.0) gm/dL Hct (34.0-46.0) % MCHC (31.0-37.0) g/dL Sodium (137-145) mmol/L BUN (7-17) mg/dL Creatinine (0.52-1.04) mg/dL Glucose (74-99) mg/dL POC Glucose (mg/dL) 324 H 386 H 312 H (75-99) mg/dL 07/06/18 Range/Units 20:00 RBC (3.80-5.40) m/uL Hgb (11.4-16.0) gm/dL Hct (34.0-46.0) % MCHC (31.0-37.0) g/dL Sodium (137-145) mmol/L BUN (7-17) mg/dL Creatinine (0.52-1.04) mg/dL Glucose (74-99) mg/dL POC Glucose (mg/dL) 329 H (75-99) mg/dL Microbiology - Last 24 Hours (Table) 07/03/18 15:04 Blood Culture - Preliminary Blood No Growth after 72 hours 07/03/18 13:08 Urine Culture - Final Urine,Voided Escherichia coli Assessment and Plan Assessment: Bilateral lower extremity cellulitis, more on the left Acute on chronic kidney injury Asymptomatic bacteriuria Uncontrolled hyperglycemia Type 2 diabetes mellitus Diabetic nephropathy, stage III chronic kidney disease Diabetic neuropathy Hypertension Hyperlipidemia COPD, not in acute exacerbation History of osteoarthritis Sleep apnea on CPAP/BiPAP Patient is bedbound Plan: This is a pleasant 58s old female who presents with uncontrolled diabetes and cellulitis and kidney disease. infectious disease consult for antibiotic adjustment. Follow-up urine culture results. We ordered urine culture and blood culture. Increase her insulin dose and follow-up her Accu-Cheks with insulin sliding scale. Nephrology consult is appreciated. Monitor renal function. Labs and medication were reviewed.. Continue same treatment. Continue with symptomatic treatment. Resume home medication. Monitor lytes and vitals. DVT and GI prophylaxis. Further recommendations of the clinical course of the patient DVT prophylaxis: Subcutaneous heparin GI Prophylaxis: Pepcid Prognosis is guarded
[2018-07-06] MEDS: ATORVASTATIN 40 MG TAB PO SCH (21:21)
[2018-07-06] MEDS ORDERED: INSULIN DETEMIR (LEVEMIR) 100 UNIT/ML SYR SQ ONE (22:18)
[2018-07-07] MEDS: LEVOTHYROXINE 100 MCG TAB PO SCH (05:40)
[2018-07-07 06:48] LABS: Basophils # (A) 0.1 k/uL (0-0.2); Basophils % (A) 1 %; Eosinophils # (A) 0.3 k/uL (0-0.7); Eosinophils % (A) 3 %; HGB 10.9 gm/dL (11.4-16.0); Lymphocytes # (A) 2.1 k/uL (1.0-4.8); Lymphocytes % (A) 19 %; MCH 30.2 pg (25.0-35.0); MCV 91.6 fL (80.0-100.0); Mean Platelet Volume 8.3; Monocytes % (A) 9 %; Neutrophils # (A) 7.5 k/uL (1.3-7.7); Neutrophils % (A) 67 %; Platelet Count 279 k/uL (150-450); RDW 14.5 % (11.5-15.5); WBC 11.1 k/uL (3.8-10.6)
[2018-07-07 06:56] LABS: Calcium 9.6 mg/dL (8.4-10.2)
[2018-07-07 07:09] LABS: Glucose,Whole Blood 341 mg/dL (75-99)
[2018-07-07] MEDS: INSULIN ASPART (NovoLOG) 100 UNIT/ML VIAL SQ SCH ×3 (07:42→17:21)
[2018-07-07] MEDS: LINAGLIPTIN 5 MG TABLET PO SCH (08:00)
[2018-07-07] MEDS: FUROSEMIDE 40 MG TAB PO SCH (08:00)
[2018-07-07] MEDS: MORPHINE SULFATE 2 MG/ML SYRINGE IV PRN ×2 (08:00→17:20)
[2018-07-07] MEDS: CLOPIDOGREL 75 MG TAB PO SCH (08:00)
[2018-07-07] MEDS: INSULIN DETEMIR (LEVEMIR) 100 UNIT/ML SYR SQ SCH ×2 (08:01→21:51)
[2018-07-07] MEDS: ceFAZolin IN SWFI 2 GM/20 ML SYRINGE IVP SCH ×3 (08:02→23:21)
[2018-07-07] MEDS: metFORMIN 500 MG TAB PO SCH ×2 (08:24→21:51)
--- NOTE | 2018-07-07 08:58 | P.PN ---
Subjective Progress Note Date: 07/07/18 Principal diagnosis: This is a 58-year-old female admitted with chronic kidney disease, diabetic nephropathy, acute kidney injury, uncontrolled diabetes,UTI and cellulitis of the left lower extremity. The cause of her acute kidney injury is deemed to be from prerenal. She is on Lasix because of edema. Her Cozaar was on hold. She also had hypomagnesemia secondary to diuresis and has resolved with replacement. She has E. coli UTI. She continues to have difficulty sleeping otherwise she is fairly asymptomatic. Good appetite no shortness of breath cough fever chills no nausea vomiting diarrhea. Her blood sugar remains somewhat high in the 300 range Objective - Vital Signs Vital signs: Vital Signs Temp 98.8 F 07/07/18 07:00 Pulse 82 07/07/18 07:00 Resp 16 07/07/18 07:00 BP 125/81 07/07/18 07:00 Pulse Ox 96 07/07/18 07:00 Intake & Output 07/06/18 07/07/18 07/07/18 18:59 06:59 18:59 Intake Total 1670 Balance 1670 Intake: Oral 1670 Other: Voiding Method Toilet Diaper # Voids 2 1 # Bowel Movements 1 On examination she is awake alert oriented comfortable HEENT exam no JVP neck is supple no facial asymmetry Lungs are clear to auscultation good air entry bilaterally Heart sounds are unremarkable for any murmur rub gallop Abdomen is obese nontender. Skin exam was moderate edema with some chronic stasis changes. Left leg has bandages on Neurologically awake alert oriented - Labs CBC & Chem 7: 07/07/18 06:15 07/07/18 06:15 Labs: Abnormal Lab Results - Last 24 Hours (Table) 07/06/18 07/06/18 07/06/18 Range/Units 11:43 16:40 20:00 WBC (3.8-10.6) k/uL RBC (3.80-5.40) m/uL Hgb (11.4-16.0) gm/dL Hct (34.0-46.0) % Sodium (137-145) mmol/L BUN (7-17) mg/dL Creatinine (0.52-1.04) mg/dL Glucose (74-99) mg/dL POC Glucose (mg/dL) 386 H 312 H 329 H (75-99) mg/dL 07/07/18 07/07/18 07/07/18 Range/Units 06:15 06:15 07:05 WBC 11.1 H (3.8-10.6) k/uL RBC 3.60 L (3.80-5.40) m/uL Hgb 10.9 L (11.4-16.0) gm/dL Hct 33.0 L (34.0-46.0) % Sodium 134 L (137-145) mmol/L BUN 74 H (7-17) mg/dL Creatinine 1.29 H (0.52-1.04) mg/dL Glucose 361 H (74-99) mg/dL POC Glucose (mg/dL) 341 H (75-99) mg/dL Microbiology - Last 24 Hours (Table) 07/03/18 15:04 Blood Culture - Preliminary Blood No Growth after 72 hours Assessment and Plan Assessment: Impression 1. Acute kidney injury, likely from prerenal from UTI and hyperglycemia with intravascular volume depletion. Improving now with creatinine down from a peak of 1.7-1.41 > 1.29 this morning. Part of the improvement may be coming off of the Cozaar. 2. Chronic kidney disease stage I to 2, GFR is greater than 60, Baseline is very varying from 0.74 to 0.8 as of 04/23/2018 and 01/13/2018. Has significant microalbumin to creatinine ratio of 986 dated 03/11/2015. off Cozaar 3. E. coli UTI sensitive to multiple antibiotics except for the Cipro and levofloxacin, currently on cefazolin IV. 4. Mild to moderate edema on Lasix 40 twice a day by mouth. 5. Blood sugar uncontrolled currently on medications including insulin and Tradjenta. Recommendation 1. Maintain antibiotic coverage 2. We will increase the Lasix dose from 40 twice a day to 80 twice a day under careful monitoring as she has significant edema. 2. Will hold off Cozaar for right now as her blood pressure is somewhat low and I'm increasing her Lasix 3. Blood sugar control. 4. We will resume her ARB and a day or 2
[2018-07-07] MEDS ORDERED: FUROSEMIDE 40 MG TAB PO ONE (09:15)
[2018-07-07 11:50] LABS: Glucose,Whole Blood 374 mg/dL (75-99)
--- NOTE | 2018-07-07 12:38 | P.PN ---
Subjective This is a pleasant 58 years old female with past medical history of COPD, diabetes mellitus, fibromyalgia, hyperlipidemia, hypertension, osteoarthritis, sleep apnea on CPAP/BiPAP, during her bowel incontinence, recent history of diabetic foot ulcer and osteomyelitis, chronic kidney disease. Patient is wheelchair-bound and bedbound for a few months now as she was told me on her ex- at bedside. Patient presents this time because of uncontrolled sugar. She takes Levemir 70 units twice a day plus NovoLog 20 units 3 times with meals , plus metformin 500 twice a day. She says that usually her sugar is 300-400 range however yesterday was around 500 to hold a and her [id number] who who was taking care of her the whole day she got concerned and sent her to emergency room. However patient denies chest pain or dyspnea. No abdominal pain or nausea vomiting. She is eating well. Patient thought that she has infection in her urine because she sees what she thinks yeast in her urine. She does not have karen dysuria or suprapubic pain or tenderness. Patient Vitas looks stable, he is afebrile. Labs show WBC of 14.3 K. Creatini ne 1.23, baseline is 1.2-1.5. Liver enzymes not elevated. Sugar is 330-346. Urinalysis is suspicious for infection. Patient was already started on ceftriaxone and vancomycin in emergency room. 07/04/2018 Patien fully awake on oriented however she feels sleepy at times as per staff. She is currently on morphine 4 mg every 4 hours. We got her lower that to 2 mg every 8 hours when necessary. She denies chest pain or dyspnea. No abdominal complaints. No urinary symptoms like no dysuria or change in frequency. She complains from burning at her leg sides for the cellulitis are. Docusate already evaluated the patient and change her antibiotics to cefazolin. IV vancomycin which was started in the emergency room was stopped since yesterday. Her creatinine today is slightly worse from 1.3 up to 1.7. Her sugar is not controlled and is in the 350s. We'll increase Levemir to 18 units twice a day, and increase NovoLog from 20 up to 30 units before meals 3 times a day. Continue with insulin sliding scale. Leukocytosis shown some improvement from 14,000-12.6 K. Hemoglobin stable. Low magnesium of 1.1 is being replaced. Liver enzymes not elevated. Nephrology input is appreciated, discontinue Cozaar and monitor creatinine and possible DC metformin if still worsening kidney f unction 07/05/2018 Patient feels better. She is more awake and alert. She still been on antibioti cs for her cellulitis in the lower extremity. Hemodynamically stable. Leukocytosis improving. Creatinine down to 1.6. Nephrology team or infectious disease teams are following the. Sugar was uncontrolled and insulin is increased, keep monitoring sugar. Urine culture showing gram-negative bacilli however patient unlikely has UTI. 07/06/2018 pt is awake and breathing quietly ,is complaining from pain in her left leg. erythemia is improving , changed dressing today. vitals are stable sugar is around 300 . pt creatinine is down to 1.4. increase novolog insulin from 30 to 40 U with meals. infectous disease consult is appreciated. no chest pain or dyspnea , pt with no abd pain . 07/07/2018 Today patient with no chest pain or dyspnea. She has no complaint except from her left leg, although patient still better controlled she has erythema and hardness around her ulcer in the left lower leg. Hemodynamically patient is stable. Sugar is still elevated despite increasing the dose of insulin. Her creatinine is improving down to 1.29. WBC is 11.1 K Objective - Vital Signs Vital signs: Vital Signs Temp 98.8 F 07/07/18 07:00 Pulse 82 07/07/18 07:00 Resp 16 07/07/18 07:00 BP 125/81 07/07/18 07:00 Pulse Ox 96 07/07/18 07:00 Intake & Output 07/06/18 07/07/18 07/07/18 18:59 06:59 18:59 Intake Total 1670 Balance 1670 Intake: Oral 1670 Other: Voiding Method Toilet Diaper # Voids 2 1 # Bowel Movements 1 - Exam GENERAL: The patient is alert and oriented x3, not in any acute distress. Obese HEENT: Pupils are round and equally reacting to light. EOMI. No scleral icterus. No conjunctival pallor. Normocephalic, atraumatic. No pharyngeal erythema. No thyromegaly. CARDIOVASCULAR: S1 and S2 present. No murmurs, rubs, or gallops. PULMONARY: Chest is clear to auscultation, no wheezing or crackles. ABDOMEN: Soft, nontender, nondistended, normoactive bowel sounds. No palpable organomegaly. MUSCULOSKELETAL: No joint swelling or deformity. -EXTREMITIES: No cyanosis, clubbing, or pedal edema. Bilateral lower extremity redness on the front legs with no evidence of cellulitis, it looks chronic dermatitis. Status post right toe amputation. -NEUROLOGICAL: Gross neurological examination did not reveal any focal deficits. Patient is bedbound for a few months SKIN: No rashes. - Labs CBC & Chem 7: 07/07/18 06:15 07/07/18 06:15 Labs: Abnormal Lab Results - Last 24 Hours (Table) 07/06/18 07/06/18 07/07/18 Range/Units 16:40 20:00 06:15 WBC 11.1 H (3.8-10.6) k/uL RBC 3.60 L (3.80-5.40) m/uL Hgb 10.9 L (11.4-16.0) gm/dL Hct 33.0 L (34.0-46.0) % Sodium (137-145) mmol/L BUN (7-17) mg/dL Creatinine (0.52-1.04) mg/dL Glucose (74-99) mg/dL POC Glucose (mg/dL) 312 H 329 H (75-99) mg/dL 07/07/18 07/07/18 07/07/18 Range/Units 06:15 07:05 11:46 WBC (3.8-10.6) k/uL RBC (3.80-5.40) m/uL Hgb (11.4-16.0) gm/dL Hct (34.0-46.0) % Sodium 134 L (137-145) mmol/L BUN 74 H (7-17) mg/dL Creatinine 1.29 H (0.52-1.04) mg/dL Glucose 361 H (74-99) mg/dL POC Glucose (mg/dL) 341 H 374 H (75-99) mg/dL Microbiology - Last 24 Hours (Table) 07/03/18 15:04 Blood Culture - Preliminary Blood No Growth after 72 hours Assessment and Plan Assessment: Bilateral lower extremity cellulitis, more on the left Acute on chronic kidney injury Asymptomatic bacteriuria Uncontrolled hyperglycemia, with resistant hyperglycemia Type 2 diabetes mellitus Diabetic nephropathy, stage III chronic kidney disease Diabetic neuropathy Hypertension Hyperlipidemia COPD, not in acute exacerbation History of osteoarthritis Sleep apnea on CPAP/BiPAP Patient is bedbound Plan: This is a pleasant 58s old female who presents with uncontrolled diabetes and cellulitis and kidney disease. infectious disease consult for antibiotic adjustment. Follow-up urine culture results. We ordered urine culture and blood culture. Increase her insulin dose and follow-up her Accu-Cheks with insulin sliding scale. Nephrology consult is appreciated. Monitor renal function. Labs and medication were reviewed.. Continue same treatment. Continue with symptomatic treatment. Resume home medication. Monitor lytes and vitals. DVT and GI prophylaxis. Further recommendations of the clinical course of the patient DVT prophylaxis: Subcutaneous heparin GI Prophylaxis: Pepcid Prognosis is guarded
--- NOTE | 2018-07-07 15:40 | PN ---
PROGRESS NOTE DATE OF SERVICE: 07/07/2018. REASON FOR FOLLOWUP: Left lower extremity cellulitis. INTERVAL HISTORY: The patient is currently afebrile. Patient has been breathing comfortably. Denies having any chest pain or any cough. The patient is complaining of pain in the left leg area currently with no drainage from the small wound she has. PHYSICAL EXAMINATION: Blood pressure is 122/80 with a pulse of 83, temperature 98.4. She is 97% on room air. General description is a middle-aged female up in the chair in no distress. Respiratory system: Unlabored breathing. Clear to auscultation anteriorly. Heart S1, S2. Regular rate and rhythm. Abdomen soft. No tenderness. Left leg is currently dressed up. No obvious drainage on the dressing. LABS: Hemoglobin is 10.1, white count 11,000, BUN of 74, creatinine 1.29. DIAGNOSTIC IMPRESSION AND PLAN: Patient with acute left lower extremity cellulitis in this patient who did have a small wound superficial with no evidence of any abscess. Cellulitis has much improved. Currently on cefazolin to continue and then transition to oral Keflex on discharge. Advised to elevate her leg to keep some of the swelling down that may be contributing to some of the pain. Continue supportive care. MMODL / IJN: [id number] /
[2018-07-07] MEDS: FUROSEMIDE 80 MG TAB PO SCH (16:13)
[2018-07-07 17:16] LABS: Glucose,Whole Blood 359 mg/dL (75-99)
[2018-07-07 20:41] LABS: Glucose,Whole Blood 360 mg/dL (75-99)
[2018-07-07] MEDS: ATORVASTATIN 40 MG TAB PO SCH (21:51)
[2018-07-08] MEDS: LEVOTHYROXINE 100 MCG TAB PO SCH (05:41)
[2018-07-08 07:16] LABS: Glucose,Whole Blood 368 mg/dL (75-99)
[2018-07-08 07:42] LABS: Basophils # (A) 0.1 k/uL (0-0.2); Basophils % (A) 1 %; Eosinophils # (A) 0.3 k/uL (0-0.7); Eosinophils % (A) 3 %; HCT 33.5 % (34.0-46.0); HGB 10.4 gm/dL (11.4-16.0); Lymphocytes # (A) 2.3 k/uL (1.0-4.8); Lymphocytes % (A) 22 %; MCH 28.5 pg (25.0-35.0); MCHC 31.2 g/dL (31.0-37.0); MCV 91.5 fL (80.0-100.0); Mean Platelet Volume 8.3; Monocytes # (A) 0.5 k/uL (0-1.0); Monocytes % (A) 5 %; Neutrophils # (A) 7.2 k/uL (1.3-7.7); Neutrophils % (A) 68 %; Platelet Count 244 k/uL (150-450); RBC 3.66 m/uL (3.80-5.40); RDW 14.7 % (11.5-15.5); WBC 10.6 k/uL (3.8-10.6)
[2018-07-08] MEDS: LINAGLIPTIN 5 MG TABLET PO SCH (07:45)
[2018-07-08] MEDS: CLOPIDOGREL 75 MG TAB PO SCH (07:45)
[2018-07-08] MEDS: FUROSEMIDE 80 MG TAB PO SCH ×2 (07:45→16:43)
[2018-07-08] MEDS: INSULIN ASPART (NovoLOG) 100 UNIT/ML VIAL SQ SCH ×3 (07:46→17:23)
[2018-07-08 07:49] LABS: Calcium 9.8 mg/dL (8.4-10.2); Potassium 4.8 mmol/L (3.5-5.1)
[2018-07-08] MEDS: ceFAZolin IN SWFI 2 GM/20 ML SYRINGE IVP SCH ×3 (07:56→23:54)
[2018-07-08] MEDS: metFORMIN 500 MG TAB PO SCH ×2 (08:58→20:13)
[2018-07-08] MEDS: INSULIN DETEMIR (LEVEMIR) 100 UNIT/ML SYR SQ SCH (08:59)
[2018-07-08 12:30] LABS: Glucose,Whole Blood 365 mg/dL (75-99)
--- NOTE | 2018-07-08 13:21 | P.PN ---
Subjective Progress Note Date: 07/08/18 Principal diagnosis: This is a 58-year-old female admitted with chronic kidney disease, diabetic nephropathy, acute kidney injury, uncontrolled diabetes,UTI and cellulitis of the left lower extremity. The cause of her acute kidney injury is deemed to be from prerenal. She is on Lasix because of edema. Her Cozaar was on hold. She also had hypomagnesemia secondary to diuresis and has resolved with replacement. She has E. coli UTI. She continues to have difficulty controlling her blood sugar which are in the 300 range. Other than this she is fairly asymptomatic. Good appetite no shortness of breath cough fever chills no nausea vomiting diarrhea. Her leg erythema is improving on both sides Objective - Vital Signs Vital signs: Vital Signs Temp 98.8 F 07/08/18 07:00 Pulse 85 07/08/18 07:00 Resp 16 07/08/18 07:00 BP 100/64 07/08/18 07:00 Pulse Ox 95 07/08/18 07:00 Intake & Output 07/07/18 07/08/18 07/08/18 18:59 06:59 18:59 Intake Total 540 180 Balance 540 180 Intake: Oral 540 180 Other: Voiding Method Toilet Diaper # Voids 2 2 On examination this is a obese female in no distress comfortable. HEENT exam no JVP neck is supple no facial asymmetry Lungs are clear to auscultation good air entry bilaterally Heart sounds are unremarkable for any murmur rub gallop Abdomen is obese protuberant and nondistended nontender Extremity exam was mild edema Both lower legs are erythematous then left leg has a bandage wrapped around it Neurologically awake alert oriented. She walks with a walker - Labs CBC & Chem 7: 07/08/18 06:57 07/08/18 06:57 Labs: Abnormal Lab Results - Last 24 Hours (Table) 07/07/18 07/07/18 07/08/18 Range/Units 16:31 20:37 06:57 RBC 3.66 L (3.80-5.40) m/uL Hgb 10.4 L (11.4-16.0) gm/dL Hct 33.5 L (34.0-46.0) % Sodium (137-145) mmol/L Chloride (98-107) mmol/L BUN (7-17) mg/dL Creatinine (0.52-1.04) mg/dL Glucose (74-99) mg/dL POC Glucose (mg/dL) 359 H 360 H (75-99) mg/dL 07/08/18 07/08/18 07/08/18 Range/Units 06:57 07:05 12:19 RBC (3.80-5.40) m/uL Hgb (11.4-16.0) gm/dL Hct (34.0-46.0) % Sodium 133 L (137-145) mmol/L Chloride 97 L (98-107) mmol/L BUN 83 H (7-17) mg/dL Creatinine 1.17 H (0.52-1.04) mg/dL Glucose 372 H (74-99) mg/dL POC Glucose (mg/dL) 368 H 365 H (75-99) mg/dL Microbiology - Last 24 Hours (Table) 07/03/18 15:04 Blood Culture - Preliminary Blood No Growth after 96 hours Assessment and Plan Assessment: Impression 1. Acute kidney injury, likely from prerenal from UTI and cellulitis. Improving now with creatinine down from a peak of 1.7-1.41 > 1.29 > 1.17 this morning. Part of the improvement may be coming off of the Cozaar. 2. Chronic kidney disease stage I to 2, GFR is greater than 60, Baseline is very varying from 0.74 to 0.8 as of 04/23/2018 and 01/13/2018. Has significant microalbumin to creatinine ratio of 986 dated 03/11/2015. off Cozaar 3. E. coli UTI sensitive to multiple antibiotics except for the Cipro and levofloxacin, currently on cefazolin IV. 4. Mild to moderate edema on Lasix 40 twice a day by mouth. 5. Blood sugar uncontrolled currently on medications including insulin and Tradjenta. Recommendation 1. Maintain antibiotic coverage 2. Continue Lasix 80 twice a day under careful monitoring as she has significant edema. 2. Will resume Cozaar 5 mg for right now as her blood pressure is somewhat low and I have increasing her Lasix 3. Blood sugar control.
--- NOTE | 2018-07-08 15:28 | P.PN ---
Subjective This is a pleasant 58 years old female with past medical history of COPD, diabetes mellitus, fibromyalgia, hyperlipidemia, hypertension, osteoarthritis, sleep apnea on CPAP/BiPAP, during her bowel incontinence, recent history of diabetic foot ulcer and osteomyelitis, chronic kidney disease. Patient is wheelchair-bound and bedbound for a few months now as she was told me on her ex- at bedside. Patient presents this time because of uncontrolled sugar. She takes Levemir 70 units twice a day plus NovoLog 20 units 3 times with meals , plus metformin 500 twice a day. She says that usually her sugar is 300-400 range however yesterday was around 500 to hold a and her [id number] who who was taking care of her the whole day she got concerned and sent her to emergency room. However patient denies chest pain or dyspnea. No abdominal pain or nausea vomiting. She is eating well. Patient thought that she has infection in her urine because she sees what she thinks yeast in her urine. She does not have karen dysuria or suprapubic pain or tenderness. Patient Vitas looks stable, he is afebrile. Labs show WBC of 14.3 K. Creatini ne 1.23, baseline is 1.2-1.5. Liver enzymes not elevated. Sugar is 330-346. Urinalysis is suspicious for infection. Patient was already started on ceftriaxone and vancomycin in emergency room. 07/04/2018 Patien fully awake on oriented however she feels sleepy at times as per staff. She is currently on morphine 4 mg every 4 hours. We got her lower that to 2 mg every 8 hours when necessary. She denies chest pain or dyspnea. No abdominal complaints. No urinary symptoms like no dysuria or change in frequency. She complains from burning at her leg sides for the cellulitis are. Docusate already evaluated the patient and change her antibiotics to cefazolin. IV vancomycin which was started in the emergency room was stopped since yesterday. Her creatinine today is slightly worse from 1.3 up to 1.7. Her sugar is not controlled and is in the 350s. We'll increase Levemir to 18 units twice a day, and increase NovoLog from 20 up to 30 units before meals 3 times a day. Continue with insulin sliding scale. Leukocytosis shown some improvement from 14,000-12.6 K. Hemoglobin stable. Low magnesium of 1.1 is being replaced. Liver enzymes not elevated. Nephrology input is appreciated, discontinue Cozaar and monitor creatinine and possible DC metformin if still worsening kidney f unction 07/05/2018 Patient feels better. She is more awake and alert. She still been on antibioti cs for her cellulitis in the lower extremity. Hemodynamically stable. Leukocytosis improving. Creatinine down to 1.6. Nephrology team or infectious disease teams are following the. Sugar was uncontrolled and insulin is increased, keep monitoring sugar. Urine culture showing gram-negative bacilli however patient unlikely has UTI. 07/06/2018 pt is awake and breathing quietly ,is complaining from pain in her left leg. erythemia is improving , changed dressing today. vitals are stable sugar is around 300 . pt creatinine is down to 1.4. increase novolog insulin from 30 to 40 U with meals. infectous disease consult is appreciated. no chest pain or dyspnea , pt with no abd pain . 07/07/2018 Today patient with no chest pain or dyspnea. She has no complaint except from her left leg, although patient still better controlled she has erythema and hardness around her ulcer in the left lower leg. Hemodynamically patient is stable. Sugar is still elevated despite increasing the dose of insulin. Her creatinine is improving down to 1.29. WBC is 11.1 K 07/08/2018 Patient infection and so likely is in the left leg is improving. She is awake and alert. No chest pain or dyspnea. No abdominal pain. Patient was hemodynamically stable. No leukocytosis. Sodium 133. Creatinine 1.1. Sugar still resistant to insulin therapy. We will start the patient on insulin drip today. Nephrology input is appreciated. Objective - Vital Signs Vital signs: Vital Signs Temp 98.8 F 07/08/18 07:00 Pulse 85 07/08/18 07:00 Resp 16 07/08/18 07:00 BP 100/64 07/08/18 07:00 Pulse Ox 95 07/08/18 07:00 Intake & Output 07/07/18 07/08/18 07/08/18 18:59 06:59 18:59 Intake Total 540 180 Balance 540 180 Intake: Oral 540 180 Other: Voiding Method Toilet Diaper # Voids 2 2 - Exam GENERAL: The patient is alert and oriented x3, not in any acute distress. Obese HEENT: Pupils are round and equally reacting to light. EOMI. No scleral icterus. No conjunctival pallor. Normocephalic, atraumatic. No pharyngeal erythema. No thyromegaly. CARDIOVASCULAR: S1 and S2 present. No murmurs, rubs, or gallops. PULMONARY: Chest is clear to auscultation, no wheezing or crackles. ABDOMEN: Soft, nontender, nondistended, normoactive bowel sounds. No palpable organomegaly. MUSCULOSKELETAL: No joint swelling or deformity. -EXTREMITIES: No cyanosis, clubbing, or pedal edema. Bilateral lower extremity redness on the front legs with no evidence of cellulitis, it looks chronic dermatitis. Status post right toe amputation. -NEUROLOGICAL: Gross neurological examination did not reveal any focal deficits. Patient is bedbound for a few months SKIN: No rashes. - Labs CBC & Chem 7: 07/08/18 06:57 07/08/18 06:57 Labs: Abnormal Lab Results - Last 24 Hours (Table) 07/07/18 07/07/18 07/08/18 Range/Units 16:31 20:37 06:57 RBC 3.66 L (3.80-5.40) m/uL Hgb 10.4 L (11.4-16.0) gm/dL Hct 33.5 L (34.0-46.0) % Sodium (137-145) mmol/L Chloride (98-107) mmol/L BUN (7-17) mg/dL Creatinine (0.52-1.04) mg/dL Glucose (74-99) mg/dL POC Glucose (mg/dL) 359 H 360 H (75-99) mg/dL 07/08/18 07/08/18 07/08/18 Range/Units 06:57 07:05 12:19 RBC (3.80-5.40) m/uL Hgb (11.4-16.0) gm/dL Hct (34.0-46.0) % Sodium 133 L (137-145) mmol/L Chloride 97 L (98-107) mmol/L BUN 83 H (7-17) mg/dL Creatinine 1.17 H (0.52-1.04) mg/dL Glucose 372 H (74-99) mg/dL POC Glucose (mg/dL) 368 H 365 H (75-99) mg/dL Microbiology - Last 24 Hours (Table) 07/03/18 15:04 Blood Culture - Preliminary Blood No Growth after 96 hours Assessment and Plan Assessment: Bilateral lower extremity cellulitis, more on the left Acute on chronic kidney injury Asymptomatic bacteriuria Uncontrolled hyperglycemia, with resistant hyperglycemia Type 2 diabetes mellitus Diabetic nephropathy, stage III chronic kidney disease Diabetic neuropathy Hypertension Hyperlipidemia COPD, not in acute exacerbation History of osteoarthritis Sleep apnea on CPAP/BiPAP Patient is bedbound Plan: This is a pleasant 58s old female who presents with uncontrolled diabetes and cellulitis and kidney disease. infectious disease consult for antibiotic adjustment. Follow-up urine culture results. We ordered urine culture and blood culture. Increase her insulin dose and follow-up her Accu-Cheks with insulin sliding scale. Nephrology consult is appreciated. Monitor renal function. Labs and medication were reviewed.. Continue same treatment. Continue with symptomatic treatment. Resume home medication. Monitor lytes and vitals. DVT and GI prophylaxis. Further recommendations of the clinical course of the patient DVT prophylaxis: Subcutaneous heparin GI Prophylaxis: Pepcid Prognosis is guarded
[2018-07-08] MEDS: INSULIN REGULAR 100 UNIT in SODIUM CHLORIDE 0.9% 100 ML IV SCH ×2 (16:23→20:25)
[2018-07-08 16:46] LABS: Glucose,Whole Blood 365 mg/dL (75-99)
[2018-07-08] MEDS ORDERED: guaiFENesin SYRUP 100MG/5ML 200 MG/10 ML CUP PO PRN (16:48)
[2018-07-08 17:12] LABS: Glucose,Whole Blood 323 mg/dL (75-99)
--- NOTE | 2018-07-08 17:35 | PN ---
PROGRESS NOTE DATE OF SERVICE: 07/08/2018. REASON FOR FOLLOWUP: Left leg wound cellulitis. INTERVAL HISTORY: The patient is currently afebrile. Patient has been breathing comfortably. No chest pain, shortness of breath or cough. No abdominal pain. Still complains of pain to the left leg wound area but no worsening. PHYSICAL EXAMINATION: Blood pressure 100/54 with a pulse of 85, temperature 98.8. She is 95% on room air. General description is a middle-aged female up in the chair in no distress. Respiratory system: Unlabored breathing. Clear to auscultation anteriorly. Heart is S1, S2. Regular rate and rhythm. Abdomen soft. No tenderness. Left leg is currently dressed up. No obvious drainage on the dressing. LABS: Hemoglobin is 10.4, white count 10.6, BUN of 83, creatinine is 1.17. DIAGNOSTIC IMPRESSION AND PLAN: Patient with left leg wound with secondary cellulitis. Currently covered with Cefazolin. Local care to continue with [facility]. Hopefully finish therapy with oral antibiotic on discharge. Continue supportive care. MMODL / IJN: [id number] /
[2018-07-08 18:06] LABS: Glucose,Whole Blood 358 mg/dL (75-99)
[2018-07-08 19:12] LABS: Glucose,Whole Blood 429 mg/dL (75-99)
[2018-07-08 19:34] LABS: Glucose,Whole Blood 388 mg/dL (75-99)
[2018-07-08 20:12] LABS: Glucose,Whole Blood 390 mg/dL (75-99)
[2018-07-08] MEDS: ATORVASTATIN 40 MG TAB PO SCH (20:13)
[2018-07-08 20:42] LABS: Glucose,Whole Blood 383 mg/dL (75-99)
[2018-07-08 21:02] LABS: Glucose,Whole Blood 378 mg/dL (75-99)
[2018-07-08 21:29] LABS: Glucose,Whole Blood 355 mg/dL (75-99)
[2018-07-08 22:01] LABS: Glucose,Whole Blood 324 mg/dL (75-99)
[2018-07-08 22:31] LABS: Glucose,Whole Blood 308 mg/dL (75-99)
[2018-07-08 23:04] LABS: Glucose,Whole Blood 293 mg/dL (75-99)
[2018-07-08 23:39] LABS: Glucose,Whole Blood 257 mg/dL (75-99)
[2018-07-08 23:56] LABS: Glucose,Whole Blood 247 mg/dL (75-99)
[2018-07-09 01:58] LABS: Glucose,Whole Blood 207 mg/dL (75-99)
[2018-07-09] MEDS: INSULIN REGULAR 100 UNIT in SODIUM CHLORIDE 0.9% 100 ML IV SCH ×3 (02:21→21:36)
[2018-07-09 04:28] LABS: Glucose,Whole Blood 180 mg/dL (75-99)
[2018-07-09] MEDS: LEVOTHYROXINE 100 MCG TAB PO SCH (05:26)
[2018-07-09 06:02] LABS: Glucose,Whole Blood 153 mg/dL (75-99)
[2018-07-09 07:20] LABS: Glucose,Whole Blood 159 mg/dL (75-99)
[2018-07-09 08:16] LABS: Glucose,Whole Blood 210 mg/dL (75-99)
[2018-07-09] MEDS: LOSARTAN 25 MG TAB PO SCH (08:23)
[2018-07-09] MEDS: INSULIN ASPART (NovoLOG) 100 UNIT/ML VIAL SQ SCH ×3 (08:23→17:24)
[2018-07-09] MEDS: CLOPIDOGREL 75 MG TAB PO SCH (08:23)
[2018-07-09] MEDS: FUROSEMIDE 80 MG TAB PO SCH ×2 (08:24→16:29)
[2018-07-09] MEDS: MORPHINE SULFATE 2 MG/ML SYRINGE IV PRN ×2 (08:24→15:32)
[2018-07-09] MEDS: ceFAZolin IN SWFI 2 GM/20 ML SYRINGE IVP SCH ×2 (08:27→16:29)
[2018-07-09] MEDS: metFORMIN 500 MG TAB PO SCH ×2 (08:28→21:19)
[2018-07-09 08:51] LABS: Potassium 4.6 mmol/L (3.5-5.1)
[2018-07-09 08:54] LABS: Basophils # (A) 0.1 k/uL (0-0.2); Basophils % (A) 1 %; Eosinophils # (A) 0.4 k/uL (0-0.7); Eosinophils % (A) 3 %; HCT 33.8 % (34.0-46.0); HGB 10.7 gm/dL (11.4-16.0); Lymphocytes # (A) 2.7 k/uL (1.0-4.8); Lymphocytes % (A) 22 %; MCH 28.5 pg (25.0-35.0); MCHC 31.7 g/dL (31.0-37.0); MCV 90.1 fL (80.0-100.0); Mean Platelet Volume 8.4; Monocytes # (A) 0.6 k/uL (0-1.0); Monocytes % (A) 5 %; Neutrophils # (A) 8.2 k/uL (1.3-7.7); Neutrophils % (A) 67 %; Platelet Count 291 k/uL (150-450); RBC 3.75 m/uL (3.80-5.40); RDW 15.2 % (11.5-15.5); WBC 12.2 k/uL (3.8-10.6)
[2018-07-09 10:38] LABS: Glucose,Whole Blood 264 mg/dL (75-99)
--- NOTE | 2018-07-09 12:11 | P.PN ---
Subjective Patient is seen in follow-up for acute kidney injury on chronic kidney disease. Patient has chronic kidney disease stage III. Baseline creatinine in the range of 1-1.2. Etiology is diabetic kidney disease. Patient presented to the hospital with elevated blood sugars. Blood sugar this morning was 231. Currently on insulin drip. Creatinine peaked at 1.77 this admission and is 1.21 today. She's been treated for lower extremity cellulitis. Oral intake is fair. No vomiting or diarrhea. Vital signs are stable. General: The patient appeared well nourished and normally developed. HEENT: Head exam is unremarkable. Neck is without jugular venous distension. LUNGS: Lungs are clear to auscultation and percussion. Breath sounds decreased. HEART: Rate and Rhythm are regular. First and second heart sounds normal. No murmurs, rubs or gallops. ABDOMEN: Abdominal exam reveals normal bowel sounds. Non-tender and non- distended. No evidence of peritonitis. EXTREMITITES: 1+ edema. Erythema noted. Objective - Vital Signs Vital signs: Vital Signs Temp 98.6 F 07/09/18 07:29 Pulse 84 07/09/18 07:29 Resp 16 07/09/18 07:29 BP 137/82 07/09/18 07:29 Pulse Ox 96 07/09/18 07:29 Intake & Output 07/08/18 07/09/18 07/09/18 18:59 06:59 18:59 Intake Total 223.751 899.641 27.851 Balance 223.751 899.641 27.851 Intake: Intake, IV Titration 43.751 139.641 27.851 Amount Insulin Regular 100 unit 43.751 139.641 27.851 In Sodium Chloride 0.9% 100 ml @ Titrate IV .Q0M LESLEE Rx#:[id number] Oral 180 760 Other: Voiding Method Toilet Diaper # Voids 3 3 - Labs CBC & Chem 7: 07/09/18 08:02 07/09/18 08:02 Labs: Abnormal Lab Results - Last 24 Hours (Table) 07/08/18 07/08/18 07/08/18 Range/Units 12:19 16:16 17:08 WBC (3.8-10.6) k/uL RBC (3.80-5.40) m/uL Hgb (11.4-16.0) gm/dL Hct (34.0-46.0) % Neutrophils # (1.3-7.7) k/uL Sodium (137-145) mmol/L Chloride (98-107) mmol/L BUN (7-17) mg/dL Creatinine (0.52-1.04) mg/dL Glucose (74-99) mg/dL POC Glucose (mg/dL) 365 H 365 H 323 H (75-99) mg/dL 07/08/18 07/08/18 07/08/18 Range/Units 17:44 18:55 19:32 WBC (3.8-10.6) k/uL RBC (3.80-5.40) m/uL Hgb (11.4-16.0) gm/dL Hct (34.0-46.0) % Neutrophils # (1.3-7.7) k/uL Sodium (137-145) mmol/L Chloride (98-107) mmol/L BUN (7-17) mg/dL Creatinine (0.52-1.04) mg/dL Glucose (74-99) mg/dL POC Glucose (mg/dL) 358 H 429 H 388 H (75-99) mg/dL 07/08/18 07/08/18 07/08/18 Range/Units 20:11 20:40 21:01 WBC (3.8-10.6) k/uL RBC (3.80-5.40) m/uL Hgb (11.4-16.0) gm/dL Hct (34.0-46.0) % Neutrophils # (1.3-7.7) k/uL Sodium (137-145) mmol/L Chloride (98-107) mmol/L BUN (7-17) mg/dL Creatinine (0.52-1.04) mg/dL Glucose (74-99) mg/dL POC Glucose (mg/dL) 390 H 383 H 378 H (75-99) mg/dL 07/08/18 07/08/18 07/08/18 Range/Units 21:28 22:00 22:30 WBC (3.8-10.6) k/uL RBC (3.80-5.40) m/uL Hgb (11.4-16.0) gm/dL Hct (34.0-46.0) % Neutrophils # (1.3-7.7) k/uL Sodium (137-145) mmol/L Chloride (98-107) mmol/L BUN (7-17) mg/dL Creatinine (0.52-1.04) mg/dL Glucose (74-99) mg/dL POC Glucose (mg/dL) 355 H 324 H 308 H (75-99) mg/dL 07/08/18 07/08/18 07/08/18 Range/Units 23:02 23:38 23:55 WBC (3.8-10.6) k/uL RBC (3.80-5.40) m/uL Hgb (11.4-16.0) gm/dL Hct (34.0-46.0) % Neutrophils # (1.3-7.7) k/uL Sodium (137-145) mmol/L Chloride (98-107) mmol/L BUN (7-17) mg/dL Creatinine (0.52-1.04) mg/dL Glucose (74-99) mg/dL POC Glucose (mg/dL) 293 H 257 H 247 H (75-99) mg/dL 07/09/18 07/09/18 07/09/18 Range/Units 01:54 04:16 05:50 WBC (3.8-10.6) k/uL RBC (3.80-5.40) m/uL Hgb (11.4-16.0) gm/dL Hct (34.0-46.0) % Neutrophils # (1.3-7.7) k/uL Sodium (137-145) mmol/L Chloride (98-107) mmol/L BUN (7-17) mg/dL Creatinine (0.52-1.04) mg/dL Glucose (74-99) mg/dL POC Glucose (mg/dL) 207 H 180 H 153 H (75-99) mg/dL 07/09/18 07/09/18 07/09/18 Range/Units 07:08 08:02 08:02 WBC 12.2 H (3.8-10.6) k/uL RBC 3.75 L (3.80-5.40) m/uL Hgb 10.7 L (11.4-16.0) gm/dL Hct 33.8 L (34.0-46.0) % Neutrophils # 8.2 H (1.3-7.7) k/uL Sodium 136 L (137-145) mmol/L Chloride 97 L (98-107) mmol/L BUN 84 H (7-17) mg/dL Creatinine 1.21 H (0.52-1.04) mg/dL Glucose 231 H (74-99) mg/dL POC Glucose (mg/dL) 159 H (75-99) mg/dL 07/09/18 07/09/18 Range/Units 08:05 10:27 WBC (3.8-10.6) k/uL RBC (3.80-5.40) m/uL Hgb (11.4-16.0) gm/dL Hct (34.0-46.0) % Neutrophils # (1.3-7.7) k/uL Sodium (137-145) mmol/L Chloride (98-107) mmol/L BUN (7-17) mg/dL Creatinine (0.52-1.04) mg/dL Glucose (74-99) mg/dL POC Glucose (mg/dL) 210 H 264 H (75-99) mg/dL Microbiology - Last 24 Hours (Table) 07/03/18 15:04 Blood Culture - Preliminary Blood No Growth after 120 hours Assessment and Plan Plan: Assessment: 1. Chronic kidney disease stage III with baseline creatinine in the range of 1- 1.2 secondary to diabetic kidney disease. Renal ultrasound from April 2018 revealed no evidence of hydronephrosis. 2. Hyperglycemia. Currently on insulin drip. Patient has history of insulin- dependent diabetes mellitus. 3. Lower extremity edema. Improving with diuresis. 4. Hypertension with chronic kidney disease. Controlled. 5. UTI. Urine culture positive for E. coli. 6. Lower extremity cellulitis maintained on antibiotics. Infectious disease following. 7. Hypertonic hyponatremia secondary to hyperglycemia. Better. 8. Hypomagnesemia from diuresis. Improved post replacement. Plan: Maintain Lasix 80 mg orally twice daily - can likely decrease dose in the next 24-48 hours. Avoid metformin if GFR below 30. Avoid nephrotoxins. Repeat electrolytes in the morning.
[2018-07-09 12:13] LABS: Glucose,Whole Blood 238 mg/dL (75-99)
--- NOTE | 2018-07-09 13:37 | US ---
EXAMINATION TYPE: US venous doppler duplex LE LT DATE OF EXAM: 07/09/2018 1:26 PM COMPARISON: CLINICAL HISTORY: cellulitis . On blood thinners. No hx of DVT. Diabetic. Cellulitis. SIDE PERFORMED: Left TECHNIQUE: The lower extremity deep venous system is examined utilizing real time linear array sonog kalli with graded compression, doppler sonography and color-flow sonography. VESSELS IMAGED: External Iliac Vein (EIV) Common Femoral Vein Deep Femoral Vein Greater Saphenous Vein * Femoral Vein Popliteal Vein Small Saphenous Vein * Proximal Calf Veins (* superficial vessels) Limited visualization due to patient body habitus Left Leg: Negative for DVT Grayscale, color doppler, spectral doppler imaging performed of the deep veins of the left lower extr emity. There is normal flow, compressibility, vascular waveforms. IMPRESSION: No sonographic evidence of deep venous thrombosis within the left lower extremity.
[2018-07-09 14:12] LABS: Glucose,Whole Blood 285 mg/dL (75-99)
--- NOTE | 2018-07-09 14:48 | PN ---
PROGRESS NOTE This is a 58-year-old female, well known to me from the [facility]ound [facility]. Patient has been coming to the [facility] Clinic for local wound followup. She has been admitted with high blood sugar and I was consulted for new wound on the left lower extremity. SURGICAL HISTORY: Patient had a right foot toe amputation in the past. The amputation site looks clean, no discharge or redness noted. Patient has mild cellulitis right lower extremity. Patient has a wound on the left lower extremity, 5 x 4 cm with some necrotic skin changes. Pulses are present by the Doppler. Patient had a venous ultrasound which was negative for DVT. MEDICAL HISTORY: History of diabetes, obesity, history of peripheral vascular disease. Patient had a vascular intervention by Dr. Staton in the past. PHYSICAL EXAMINATION: Patient was seen in her room. NECK: Supple, trachea central. CHEST: Clear. ABDOMEN: Protuberant. FEMORALS: 1+ bilateral, DP is palpable on the left side. Patient has a left lower extremity wound 5 x 4 cm, which needs debridement and deep culture. MMODL / IJN: [id number] /
--- NOTE | 2018-07-09 15:03 | PCN ---
PROCEDURE NOTE PREOP DIAGNOSIS: Wound left lower extremity 5 x 4 cm with some necrotic skin edges and some drainage noted. PROCEDURE: Debridement of the wound down to subcutaneous tissue. Patient has history of diabetes with neuropathy. Left leg was prepped and draped in a sterile manner. Using scissor we treated the superficial debridement down to subcutaneous tissue. All the necrotic skin was removed. Patient had a deep culture taken for culture and sensitivity. No active bleeding was noted. PLAN: He will use Santyl cream and local wound care and IV antibiotic. Patient is discharged from the wound clinic. She will follow up in the wound clinic for follow up. MMODL / IJN: [id number] /
[2018-07-09] MEDS: COLLAGENASE 250 UNIT/GM OINTMENT 30 GM TUBE TOPICAL SCH (15:31)
[2018-07-09 16:27] LABS: Glucose,Whole Blood 333 mg/dL (75-99)
[2018-07-09 18:10] LABS: Glucose,Whole Blood 306 mg/dL (75-99)
--- NOTE | 2018-07-09 19:15 | PN ---
PROGRESS NOTE DATE OF SERVICE: DATE OF SERVICE: 07/09/2018 REASON FOR FOLLOWUP: Left leg wound cellulitis. INTERVAL HISTORY: The patient is currently afebrile. Patient has been breathing comfortably. Denies any chest pain, cough, no abdominal pain. Still complaining of pain to the left leg area. PHYSICAL EXAMINATION: Blood pressure 119/75 with a pulse of 86, temperature 98.8. Pulse ox 93% on room air. General description is a middle-aged female up in the chair in no distress. Respiratory system: Unlabored breathing. Clear to auscultation anteriorly. Heart S1, S2. Regular rate and rhythm. Abdomen soft, no tenderness. Left leg wound still has slough tissue, the redness has decreased. LABS: Hemoglobin is 10.1, white count 12.2 with a BUN of 84, creatinine 4.21. DIAGNOSTIC IMPRESSION AND PLAN: Patient with left leg cellulitis with wound. Patient still shown overall clinical improvement. However, still has significant slough tissue of the wound and hence we will add Santyl. Continue the Medihoney. Continue with cefazolin. Reevaluate the patient tomorrow. Continue supportive care. MMODL / IJN: [id number] /
[2018-07-09 20:07] LABS: Glucose,Whole Blood 310 mg/dL (75-99)
[2018-07-09] MEDS: ATORVASTATIN 40 MG TAB PO SCH (20:33)
--- NOTE | 2018-07-09 22:24 | P.PN ---
Subjective This is a pleasant 58 years old female with past medical history of COPD, diabetes mellitus, fibromyalgia, hyperlipidemia, hypertension, osteoarthritis, sleep apnea on CPAP/BiPAP, during her bowel incontinence, recent history of diabetic foot ulcer and osteomyelitis, chronic kidney disease. Patient is wheelchair-bound and bedbound for a few months now as she was told me on her ex- at bedside. Patient presents this time because of uncontrolled sugar. She takes Levemir 70 units twice a day plus NovoLog 20 units 3 times with meals , plus metformin 500 twice a day. She says that usually her sugar is 300-400 range however yesterday was around 500 to hold a and her [id number] who who was taking care of her the whole day she got concerned and sent her to emergency room. However patient denies chest pain or dyspnea. No abdominal pain or nausea vomiting. She is eating well. Patient thought that she has infection in her urine because she sees what she thinks yeast in her urine. She does not have karen dysuria or suprapubic pain or tenderness. Patient Vitas looks stable, he is afebrile. Labs show WBC of 14.3 K. Creatini ne 1.23, baseline is 1.2-1.5. Liver enzymes not elevated. Sugar is 330-346. Urinalysis is suspicious for infection. Patient was already started on ceftriaxone and vancomycin in emergency room. 07/04/2018 Patien fully awake on oriented however she feels sleepy at times as per staff. She is currently on morphine 4 mg every 4 hours. We got her lower that to 2 mg every 8 hours when necessary. She denies chest pain or dyspnea. No abdominal complaints. No urinary symptoms like no dysuria or change in frequency. She complains from burning at her leg sides for the cellulitis are. Docusate already evaluated the patient and change her antibiotics to cefazolin. IV vancomycin which was started in the emergency room was stopped since yesterday. Her creatinine today is slightly worse from 1.3 up to 1.7. Her sugar is not controlled and is in the 350s. We'll increase Levemir to 18 units twice a day, and increase NovoLog from 20 up to 30 units before meals 3 times a day. Continue with insulin sliding scale. Leukocytosis shown some improvement from 14,000-12.6 K. Hemoglobin stable. Low magnesium of 1.1 is being replaced. Liver enzymes not elevated. Nephrology input is appreciated, discontinue Cozaar and monitor creatinine and possible DC metformin if still worsening kidney f unction 07/05/2018 Patient feels better. She is more awake and alert. She still been on antibioti cs for her cellulitis in the lower extremity. Hemodynamically stable. Leukocytosis improving. Creatinine down to 1.6. Nephrology team or infectious disease teams are following the. Sugar was uncontrolled and insulin is increased, keep monitoring sugar. Urine culture showing gram-negative bacilli however patient unlikely has UTI. 07/06/2018 pt is awake and breathing quietly ,is complaining from pain in her left leg. erythemia is improving , changed dressing today. vitals are stable sugar is around 300 . pt creatinine is down to 1.4. increase novolog insulin from 30 to 40 U with meals. infectous disease consult is appreciated. no chest pain or dyspnea , pt with no abd pain . 07/07/2018 Today patient with no chest pain or dyspnea. She has no complaint except from her left leg, although patient still better controlled she has erythema and hardness around her ulcer in the left lower leg. Hemodynamically patient is stable. Sugar is still elevated despite increasing the dose of insulin. Her creatinine is improving down to 1.29. WBC is 11.1 K 07/08/2018 Patient infection and so likely is in the left leg is improving. She is awake and alert. No chest pain or dyspnea. No abdominal pain. Patient was hemodynamically stable. No leukocytosis. Sodium 133. Creatinine 1.1. Sugar still resistant to insulin therapy. We will start the patient on insulin drip today. Nephrology input is appreciated. 07/09/2018 pt has persistant cellulitis and swelling of her left leg, her left leg is warm. today doppler US was negative for DVT, we called vascular surgeon for evaluation her wound and their recommendation is appreciated , please refer to their note for more detail. she is still on antibiotic as per infectious disease who is managing her antibiotic, she is currently on cefazolin . we will order repeat us of the lower ext to rule out abscess . pt remains on insulin drip and despite that she has difficulty controlling her sugar which is still in 200-300s range. nephrology team are following the case as well . we will increase her novolog insulin to 30 U with meal . levemir is on hold for insulin drip Review of Systems except what is mentioned above CONSTITUTIONAL: negative. RESPIRATORY: Negative. CARDIOVASCULAR: Negative. GASTROINTESTINAL: Negative. GENITOURINARY: Negative. INTEGUMENT/BREAST: Negative. MUSCULOSKELETAL: Negative. NEUROLOGICAL: Negative. medication: Tylenol 650 mg, Lipitor 40 mg cefazolin 2 g, Plavix 75 mg, Lasix 40 mg, insulin NovoLog 17 units with meals, , levothyroxine 100 g, Lesly Rai 5 mg, magnesium sulfate 1 g, metformin 500 mg, morphine sulfate 2 mg, losartan 12.5 mg, collagenase topical, pt is on insulin drip Objective - Vital Signs Vital signs: Vital Signs Temp 98.2 F 07/09/18 19:46 Pulse 84 07/09/18 19:46 Resp 18 07/09/18 19:46 BP 156/86 07/09/18 19:46 Pulse Ox 97 07/09/18 19:46 Intake & Output 07/09/18 07/09/18 07/10/18 06:59 18:59 06:59 Intake Total 899.641 891.335 25.57 Balance 899.641 891.335 25.57 Intake: Intake, IV Titration 139.641 121.335 25.57 Amount Insulin Regular 100 unit 139.641 121.335 25.57 In Sodium Chloride 0.9% 100 ml @ Titrate IV .[facility]M [facility] Rx#:[id number] Oral 760 770 Other: Voiding Method Toilet Toilet Diaper Diaper # Voids 3 3 - Exam GENERAL: The patient is alert and oriented x3, not in any acute distress. Obese HEENT: Pupils are round and equally reacting to light. EOMI. No scleral icterus. No conjunctival pallor. Normocephalic, atraumatic. No pharyngeal erythema. No thyromegaly. CARDIOVASCULAR: S1 and S2 present. No murmurs, rubs, or gallops. PULMONARY: Chest is clear to auscultation, no wheezing or crackles. ABDOMEN: Soft, nontender, nondistended, normoactive bowel sounds. No palpable organomegaly. MUSCULOSKELETAL: No joint swelling or deformity. -EXTREMITIES: No cyanosis, clubbing, or pedal edema. Bilateral lower extremity redness on the front legs with no evidence of cellulitis, it looks chronic dermatitis. Status post right toe amputation. -NEUROLOGICAL: Gross neurological examination did not reveal any focal deficits. Patient is bedbound for a few months SKIN: No rashes. - Labs CBC & Chem 7: 07/09/18 08:02 07/09/18 08:02 Labs: Abnormal Lab Results - Last 24 Hours (Table) 07/08/18 07/08/18 07/08/18 Range/Units 20:40 21:01 21:28 WBC (3.8-10.6) k/uL RBC (3.80-5.40) m/uL Hgb (11.4-16.0) gm/dL Hct (34.0-46.0) % Neutrophils # (1.3-7.7) k/uL Sodium (137-145) mmol/L Chloride (98-107) mmol/L BUN (7-17) mg/dL Creatinine (0.52-1.04) mg/dL Glucose (74-99) mg/dL POC Glucose (mg/dL) 383 H 378 H 355 H (75-99) mg/dL 07/08/18 07/08/18 07/08/18 Range/Units 22:00 22:30 23:02 WBC (3.8-10.6) k/uL RBC (3.80-5.40) m/uL Hgb (11.4-16.0) gm/dL Hct (34.0-46.0) % Neutrophils # (1.3-7.7) k/uL Sodium (137-145) mmol/L Chloride (98-107) mmol/L BUN (7-17) mg/dL Creatinine (0.52-1.04) mg/dL Glucose (74-99) mg/dL POC Glucose (mg/dL) 324 H 308 H 293 H (75-99) mg/dL 07/08/18 07/08/18 07/09/18 Range/Units 23:38 23:55 01:54 WBC (3.8-10.6) k/uL RBC (3.80-5.40) m/uL Hgb (11.4-16.0) gm/dL Hct (34.0-46.0) % Neutrophils # (1.3-7.7) k/uL Sodium (137-145) mmol/L Chloride (98-107) mmol/L BUN (7-17) mg/dL Creatinine (0.52-1.04) mg/dL Glucose (74-99) mg/dL POC Glucose (mg/dL) 257 H 247 H 207 H (75-99) mg/dL 07/09/18 07/09/18 07/09/18 Range/Units 04:16 05:50 07:08 WBC (3.8-10.6) k/uL RBC (3.80-5.40) m/uL Hgb (11.4-16.0) gm/dL Hct (34.0-46.0) % Neutrophils # (1.3-7.7) k/uL Sodium (137-145) mmol/L Chloride (98-107) mmol/L BUN (7-17) mg/dL Creatinine (0.52-1.04) mg/dL Glucose (74-99) mg/dL POC Glucose (mg/dL) 180 H 153 H 159 H (75-99) mg/dL 07/09/18 07/09/18 07/09/18 Range/Units 08:02 08:02 08:05 WBC 12.2 H (3.8-10.6) k/uL RBC 3.75 L (3.80-5.40) m/uL Hgb 10.7 L (11.4-16.0) gm/dL Hct 33.8 L (34.0-46.0) % Neutrophils # 8.2 H (1.3-7.7) k/uL Sodium 136 L (137-145) mmol/L Chloride 97 L (98-107) mmol/L BUN 84 H (7-17) mg/dL Creatinine 1.21 H (0.52-1.04) mg/dL Glucose 231 H (74-99) mg/dL POC Glucose (mg/dL) 210 H (75-99) mg/dL 07/09/18 07/09/18 07/09/18 Range/Units 10:27 12:01 14:01 WBC (3.8-10.6) k/uL RBC (3.80-5.40) m/uL Hgb (11.4-16.0) gm/dL Hct (34.0-46.0) % Neutrophils # (1.3-7.7) k/uL Sodium (137-145) mmol/L Chloride (98-107) mmol/L BUN (7-17) mg/dL Creatinine (0.52-1.04) mg/dL Glucose (74-99) mg/dL POC Glucose (mg/dL) 264 H 238 H 285 H (75-99) mg/dL 07/09/18 07/09/18 07/09/18 Range/Units 16:16 17:58 19:55 WBC (3.8-10.6) k/uL RBC (3.80-5.40) m/uL Hgb (11.4-16.0) gm/dL Hct (34.0-46.0) % Neutrophils # (1.3-7.7) k/uL Sodium (137-145) mmol/L Chloride (98-107) mmol/L BUN (7-17) mg/dL Creatinine (0.52-1.04) mg/dL Glucose (74-99) mg/dL POC Glucose (mg/dL) 333 H 306 H 310 H (75-99) mg/dL Microbiology - Last 24 Hours (Table) 07/03/18 15:04 Blood Culture - Final Blood No Growth after 144 hours Assessment and Plan Assessment: Bilateral lower extremity cellulitis, more on the left Acute on chronic kidney injury Asymptomatic bacteriuria Uncontrolled hyperglycemia, with resistant hyperglycemia Type 2 diabetes mellitus Diabetic nephropathy, stage III chronic kidney disease Diabetic neuropathy Hypertension Hyperlipidemia COPD, not in acute exacerbation History of osteoarthritis Sleep apnea on CPAP/BiPAP Patient is bedbound Plan: This is a pleasant 58s old female who presents with uncontrolled diabetes and cellulitis and kidney disease. infectious disease consult for antibiotic adjustment. Follow-up urine culture results. We ordered urine culture and blood culture. Increase her insulin dose and follow-up her Accu-Cheks with insulin sliding scale. Nephrology consult is appreciated. Monitor renal function. Labs and medication were reviewed.. Continue same treatment. Continue with symptomatic treatment. Resume home medication. Monitor lytes and vitals. DVT and GI prophylaxis. Further recommendations of the clinical course of the patient DVT prophylaxis: Subcutaneous heparin GI Prophylaxis: Pepcid Prognosis is guarded
[2018-07-09 22:27] LABS: Glucose,Whole Blood 264 mg/dL (75-99)
[2018-07-10 00:16] LABS: Glucose,Whole Blood 234 mg/dL (75-99)
[2018-07-10] MEDS: ceFAZolin IN SWFI 2 GM/20 ML SYRINGE IVP SCH ×3 (00:19→15:39)
[2018-07-10 02:20] LABS: Glucose,Whole Blood 253 mg/dL (75-99)
[2018-07-10 04:11] LABS: Glucose,Whole Blood 263 mg/dL (75-99)
[2018-07-10] MEDS: INSULIN REGULAR 100 UNIT in SODIUM CHLORIDE 0.9% 100 ML IV SCH ×3 (05:58→18:53)
[2018-07-10] MEDS: LEVOTHYROXINE 100 MCG TAB PO SCH (05:59)
[2018-07-10 06:07] LABS: Glucose,Whole Blood 256 mg/dL (75-99)
[2018-07-10] MEDS: metFORMIN 500 MG TAB PO SCH (07:21)
[2018-07-10] MEDS: INSULIN ASPART (NovoLOG) 100 UNIT/ML VIAL SQ SCH ×3 (07:46→17:03)
[2018-07-10] MEDS: LOSARTAN 25 MG TAB PO SCH (07:47)
[2018-07-10] MEDS: FUROSEMIDE 80 MG TAB PO SCH (07:48)
[2018-07-10] MEDS: CLOPIDOGREL 75 MG TAB PO SCH (07:48)
[2018-07-10 09:40] LABS: Glucose,Whole Blood 303 mg/dL (75-99)
[2018-07-10 09:47] LABS: Calcium 9.7 mg/dL (8.4-10.2); Magnesium 1.8 mg/dL (1.6-2.3); Potassium 4.6 mmol/L (3.5-5.1)
[2018-07-10 09:50] LABS: Basophils # (A) 0.1 k/uL (0-0.2); Basophils % (A) 1 %; Eosinophils # (A) 0.3 k/uL (0-0.7); Eosinophils % (A) 3 %; HCT 33.4 % (34.0-46.0); HGB 10.6 gm/dL (11.4-16.0); Lymphocytes # (A) 2.6 k/uL (1.0-4.8); Lymphocytes % (A) 25 %; MCH 28.8 pg (25.0-35.0); MCHC 31.7 g/dL (31.0-37.0); MCV 90.9 fL (80.0-100.0); Mean Platelet Volume 8.5; Monocytes # (A) 0.4 k/uL (0-1.0); Monocytes % (A) 4 %; Neutrophils # (A) 6.9 k/uL (1.3-7.7); Neutrophils % (A) 66 %; Platelet Count 275 k/uL (150-450); RBC 3.68 m/uL (3.80-5.40); RDW 15.3 % (11.5-15.5); WBC 10.5 k/uL (3.8-10.6)
[2018-07-10] MEDS: COLLAGENASE 250 UNIT/GM OINTMENT 30 GM TUBE TOPICAL SCH (10:35)
[2018-07-10 11:59] LABS: Glucose,Whole Blood 278 mg/dL (75-99)
--- NOTE | 2018-07-10 12:16 | P.PN ---
Subjective Patient is seen in follow-up for acute kidney injury on chronic kidney disease. Patient has chronic kidney disease stage III. Baseline creatinine in the range of 1-1.2. Etiology is diabetic kidney disease. Patient presented to the hospital with elevated blood sugars. Blood sugar this morning was 234. Currently on insulin drip. Creatinine peaked at 1.77 this admission and is 1.39 today. She's being treated for lower extremity cellulitis. Oral intake is fair. No vomiting or diarrhea. Vital signs are stable. General: The patient appeared well nourished and normally developed. HEENT: Head exam is unremarkable. Neck is without jugular venous distension. LUNGS: Lungs are clear to auscultation and percussion. Breath sounds decreased. HEART: Rate and Rhythm are regular. First and second heart sounds normal. No murmurs, rubs or gallops. ABDOMEN: Abdominal exam reveals normal bowel sounds. Non-tender and non- distended. No evidence of peritonitis. EXTREMITITES: 1+ edema. Erythema noted. Objective - Vital Signs Vital signs: Vital Signs Temp 98 F 07/10/18 07:00 Pulse 79 07/10/18 07:00 Resp 16 07/10/18 07:00 BP 148/65 07/10/18 07:00 Pulse Ox 95 07/10/18 07:00 Intake & Output 07/09/18 07/10/18 07/10/18 18:59 06:59 18:59 Intake Total 891.335 348.403 85.715 Balance 891.335 348.403 85.715 Intake: Intake, IV Titration 121.335 148.403 85.715 Amount Insulin Regular 100 unit 121.335 148.403 85.715 In Sodium Chloride 0.9% 100 ml @ Titrate IV .Q0M [facility] Rx#:[id number] Oral 770 200 Other: Voiding Method Toilet Diaper # Voids 3 1 - Labs CBC & Chem 7: 07/10/18 08:34 07/10/18 08:34 Labs: Abnormal Lab Results - Last 24 Hours (Table) 07/09/18 07/09/18 07/09/18 Range/Units 14:01 16:16 17:58 RBC (3.80-5.40) m/uL Hgb (11.4-16.0) gm/dL Hct (34.0-46.0) % BUN (7-17) mg/dL Creatinine (0.52-1.04) mg/dL Glucose (74-99) mg/dL POC Glucose (mg/dL) 285 H 333 H 306 H (75-99) mg/dL 07/09/18 07/09/18 07/10/18 Range/Units 19:55 22:06 00:03 RBC (3.80-5.40) m/uL Hgb (11.4-16.0) gm/dL Hct (34.0-46.0) % BUN (7-17) mg/dL Creatinine (0.52-1.04) mg/dL Glucose (74-99) mg/dL POC Glucose (mg/dL) 310 H 264 H 234 H (75-99) mg/dL 07/10/18 07/10/18 07/10/18 Range/Units 02:09 03:56 05:55 RBC (3.80-5.40) m/uL Hgb (11.4-16.0) gm/dL Hct (34.0-46.0) % BUN (7-17) mg/dL Creatinine (0.52-1.04) mg/dL Glucose (74-99) mg/dL POC Glucose (mg/dL) 253 H 263 H 256 H (75-99) mg/dL 07/10/18 07/10/18 07/10/18 Range/Units 08:34 08:34 09:28 RBC 3.68 L (3.80-5.40) m/uL Hgb 10.6 L (11.4-16.0) gm/dL Hct 33.4 L (34.0-46.0) % BUN 82 H (7-17) mg/dL Creatinine 1.39 H (0.52-1.04) mg/dL Glucose 234 H (74-99) mg/dL POC Glucose (mg/dL) 303 H (75-99) mg/dL 07/10/18 Range/Units 11:48 RBC (3.80-5.40) m/uL Hgb (11.4-16.0) gm/dL Hct (34.0-46.0) % BUN (7-17) mg/dL Creatinine (0.52-1.04) mg/dL Glucose (74-99) mg/dL POC Glucose (mg/dL) 278 H (75-99) mg/dL Microbiology - Last 24 Hours (Table) 07/09/18 13:26 Gram Stain - Preliminary Leg - Left Wound Culture - Preliminary 07/03/18 15:04 Blood Culture - Final Blood No Growth after 144 hours Assessment and Plan Plan: Assessment: 1. Chronic kidney disease stage III with baseline creatinine in the range of 1- 1.2 secondary to diabetic kidney disease. Renal ultrasound from April 2018 revealed no evidence of hydronephrosis. 2. Hyperglycemia. Currently on insulin drip. Patient has history of insulin- dependent diabetes mellitus. 3. Lower extremity edema. Improving with diuresis. 4. Hypertension with chronic kidney disease. Controlled. 5. UTI. Urine culture positive for E. coli. 6. Lower extremity cellulitis maintained on antibiotics. Infectious disease following. 7. Hypertonic hyponatremia secondary to hyperglycemia. Better. 8. Hypomagnesemia from diuresis. Improved post replacement. Plan: Decrease Lasix to 60 mg orally twice daily. Avoid metformin if GFR below 30. Avoid nephrotoxins. Repeat electrolytes in the morning.
[2018-07-10 14:11] LABS: Glucose,Whole Blood 245 mg/dL (75-99)
[2018-07-10] MEDS: GLIMEPIRIDE 2 MG TAB PO SCH (14:24)
[2018-07-10] MEDS: FUROSEMIDE 20 MG TAB PO SCH (15:38)
[2018-07-10] MEDS: MORPHINE SULFATE 2 MG/ML SYRINGE IV PRN (15:39)
[2018-07-10] MEDS ORDERED: FUROSEMIDE 80 MG TAB PO SCH (16:00)
[2018-07-10 16:49] LABS: Glucose,Whole Blood 248 mg/dL (75-99)
--- NOTE | 2018-07-10 17:38 | P.PN ---
Subjective This is a pleasant 58 years old female with past medical history of COPD, diabetes mellitus, fibromyalgia, hyperlipidemia, hypertension, osteoarthritis, sleep apnea on CPAP/BiPAP, during her bowel incontinence, recent history of diabetic foot ulcer and osteomyelitis, chronic kidney disease. Patient is wheelchair-bound and bedbound for a few months now as she was told me on her ex- at bedside. Patient presents this time because of uncontrolled sugar. She takes Levemir 70 units twice a day plus NovoLog 20 units 3 times with meals , plus metformin 500 twice a day. She says that usually her sugar is 300-400 range however yesterday was around 500 to hold a and her [id number] who who was taking care of her the whole day she got concerned and sent her to emergency room. However patient denies chest pain or dyspnea. No abdominal pain or nausea vomiting. She is eating well. Patient thought that she has infection in her urine because she sees what she thinks yeast in her urine. She does not have karen dysuria or suprapubic pain or tenderness. Patient Vitas looks stable, he is afebrile. Labs show WBC of 14.3 K. Creatini ne 1.23, baseline is 1.2-1.5. Liver enzymes not elevated. Sugar is 330-346. Urinalysis is suspicious for infection. Patient was already started on ceftriaxone and vancomycin in emergency room. 07/04/2018 Patien fully awake on oriented however she feels sleepy at times as per staff. She is currently on morphine 4 mg every 4 hours. We got her lower that to 2 mg every 8 hours when necessary. She denies chest pain or dyspnea. No abdominal complaints. No urinary symptoms like no dysuria or change in frequency. She complains from burning at her leg sides for the cellulitis are. Docusate already evaluated the patient and change her antibiotics to cefazolin. IV vancomycin which was started in the emergency room was stopped since yesterday. Her creatinine today is slightly worse from 1.3 up to 1.7. Her sugar is not controlled and is in the 350s. We'll increase Levemir to 18 units twice a day, and increase NovoLog from 20 up to 30 units before meals 3 times a day. Continue with insulin sliding scale. Leukocytosis shown some improvement from 14,000-12.6 K. Hemoglobin stable. Low magnesium of 1.1 is being replaced. Liver enzymes not elevated. Nephrology input is appreciated, discontinue Cozaar and monitor creatinine and possible DC metformin if still worsening kidney f unction 07/05/2018 Patient feels better. She is more awake and alert. She still been on antibioti cs for her cellulitis in the lower extremity. Hemodynamically stable. Leukocytosis improving. Creatinine down to 1.6. Nephrology team or infectious disease teams are following the. Sugar was uncontrolled and insulin is increased, keep monitoring sugar. Urine culture showing gram-negative bacilli however patient unlikely has UTI. 07/06/2018 pt is awake and breathing quietly ,is complaining from pain in her left leg. erythemia is improving , changed dressing today. vitals are stable sugar is around 300 . pt creatinine is down to 1.4. increase novolog insulin from 30 to 40 U with meals. infectous disease consult is appreciated. no chest pain or dyspnea , pt with no abd pain . 07/07/2018 Today patient with no chest pain or dyspnea. She has no complaint except from her left leg, although patient still better controlled she has erythema and hardness around her ulcer in the left lower leg. Hemodynamically patient is stable. Sugar is still elevated despite increasing the dose of insulin. Her creatinine is improving down to 1.29. WBC is 11.1 K 07/08/2018 Patient infection and so likely is in the left leg is improving. She is awake and alert. No chest pain or dyspnea. No abdominal pain. Patient was hemodynamically stable. No leukocytosis. Sodium 133. Creatinine 1.1. Sugar still resistant to insulin therapy. We will start the patient on insulin drip today. Nephrology input is appreciated. 07/09/2018 pt has persistant cellulitis and swelling of her left leg, her left leg is warm. today doppler US was negative for DVT, we called vascular surgeon for evaluation her wound and their recommendation is appreciated , please refer to their note for more detail. she is still on antibiotic as per infectious disease who is managing her antibiotic, she is currently on cefazolin . we will order repeat us of the lower ext to rule out abscess . pt remains on insulin drip and despite that she has difficulty controlling her sugar which is still in 200-300s range. nephrology team are following the case as well . we will increase her novolog insulin to 30 U with meal . levemir is on hold for insulin drip 07/10/2018 Patient is still have cellulitis in the lower extremity, discussed the case with infectious disease, when going to do ultra sound of the lower extremity to rule out abscess. Patient antibiotic management as per ID team. Patient does has resistant hyperglycemia, currently she is on insulin drip at 20 units per hour and her sugars is around 270 milligrams per dl. Also we'll do physical therapy and a capacious therapy evaluation. Vascular surgery input is appreciated Review of Systems except what is mentioned above CONSTITUTIONAL: negative. RESPIRATORY: Negative. CARDIOVASCULAR: Negative. GASTROINTESTINAL: Negative. GENITOURINARY: Negative. INTEGUMENT/BREAST: Negative. MUSCULOSKELETAL: Negative. NEUROLOGICAL: Negative. medication: Tylenol 650 mg, Lipitor 40 mg cefazolin 2 g, Plavix 75 mg, Lasix 40 mg, insulin NovoLog 17 units with meals, , levothyroxine 100 g, Lesly Rai 5 mg, magnesium sulfate 1 g, metformin 500 mg, morphine sulfate 2 mg, losartan 12.5 mg, collagenase topical, pt is on insulin drip Objective - Vital Signs Vital signs: Vital Signs Temp 97.8 F 07/10/18 13:49 Pulse 78 07/10/18 13:49 Resp 16 07/10/18 13:49 BP 105/61 07/10/18 13:49 Pulse Ox 95 07/10/18 13:49 Intake & Output 07/09/18 07/10/18 07/10/18 18:59 06:59 18:59 Intake Total 891.335 348.403 153.115 Output Total 300 Balance 891.335 348.403 -146.885 Intake: Intake, IV Titration 121.335 148.403 153.115 Amount Insulin Regular 100 unit 121.335 148.403 153.115 In Sodium Chloride 0.9% 100 ml @ Titrate IV .Q0M [facility] Rx#:[id number] Oral 770 200 Output: Urine 300 Other: Voiding Method Toilet Diaper # Voids 3 1 - Exam GENERAL: The patient is alert and oriented x3, not in any acute distress. Obese HEENT: Pupils are round and equally reacting to light. EOMI. No scleral icterus. No conjunctival pallor. Normocephalic, atraumatic. No pharyngeal erythema. No thyromegaly. CARDIOVASCULAR: S1 and S2 present. No murmurs, rubs, or gallops. PULMONARY: Chest is clear to auscultation, no wheezing or crackles. ABDOMEN: Soft, nontender, nondistended, normoactive bowel sounds. No palpable organomegaly. MUSCULOSKELETAL: No joint swelling or deformity. -EXTREMITIES: No cyanosis, clubbing, or pedal edema. Bilateral lower extremity redness on the front legs with no evidence of cellulitis, it looks chronic dermatitis. Status post right toe amputation. -NEUROLOGICAL: Gross neurological examination did not reveal any focal deficits. Patient is bedbound for a few months SKIN: No rashes. - Labs CBC & Chem 7: 07/10/18 08:34 07/10/18 08:34 Labs: Abnormal Lab Results - Last 24 Hours (Table) 07/09/18 07/09/18 07/09/18 Range/Units 17:58 19:55 22:06 RBC (3.80-5.40) m/uL Hgb (11.4-16.0) gm/dL Hct (34.0-46.0) % BUN (7-17) mg/dL Creatinine (0.52-1.04) mg/dL Glucose (74-99) mg/dL POC Glucose (mg/dL) 306 H 310 H 264 H (75-99) mg/dL 07/10/18 07/10/18 07/10/18 Range/Units 00:03 02:09 03:56 RBC (3.80-5.40) m/uL Hgb (11.4-16.0) gm/dL Hct (34.0-46.0) % BUN (7-17) mg/dL Creatinine (0.52-1.04) mg/dL Glucose (74-99) mg/dL POC Glucose (mg/dL) 234 H 253 H 263 H (75-99) mg/dL 07/10/18 07/10/18 07/10/18 Range/Units 05:55 08:34 08:34 RBC 3.68 L (3.80-5.40) m/uL Hgb 10.6 L (11.4-16.0) gm/dL Hct 33.4 L (34.0-46.0) % BUN 82 H (7-17) mg/dL Creatinine 1.39 H (0.52-1.04) mg/dL Glucose 234 H (74-99) mg/dL POC Glucose (mg/dL) 256 H (75-99) mg/dL 07/10/18 07/10/18 07/10/18 Range/Units 09:28 11:48 13:59 RBC (3.80-5.40) m/uL Hgb (11.4-16.0) gm/dL Hct (34.0-46.0) % BUN (7-17) mg/dL Creatinine (0.52-1.04) mg/dL Glucose (74-99) mg/dL POC Glucose (mg/dL) 303 H 278 H 245 H (75-99) mg/dL 07/10/18 Range/Units 16:34 RBC (3.80-5.40) m/uL Hgb (11.4-16.0) gm/dL Hct (34.0-46.0) % BUN (7-17) mg/dL Creatinine (0.52-1.04) mg/dL Glucose (74-99) mg/dL POC Glucose (mg/dL) 248 H (75-99) mg/dL Microbiology - Last 24 Hours (Table) 07/09/18 13:26 Gram Stain - Preliminary Leg - Left Wound Culture - Preliminary 07/03/18 15:04 Blood Culture - Final Blood No Growth after 144 hours Assessment and Plan Assessment: Bilateral lower extremity cellulitis, more on the left Acute on chronic kidney injury Asymptomatic bacteriuria Uncontrolled hyperglycemia, with resistant hyperglycemia Type 2 diabetes mellitus Diabetic nephropathy, stage III chronic kidney disease Diabetic neuropathy Hypertension Hyperlipidemia COPD, not in acute exacerbation History of osteoarthritis Sleep apnea on CPAP/BiPAP Patient is bedbound Plan: This is a pleasant 58s old female who presents with uncontrolled diabetes and cellulitis and kidney disease. infectious disease consult for antibiotic adjustment. Follow-up urine culture results. We ordered urine culture and blood culture. Increase her insulin dose and follow-up her Accu-Cheks with insulin sliding scale. Nephrology consult is appreciated. Monitor renal function. Labs and medication were reviewed.. Continue same treatment. Continue with symptomatic treatment. Resume home medication. Monitor lytes and vitals. DVT and GI prophylaxis. Further recommendations of the clinical course of the patient DVT prophylaxis: Subcutaneous heparin GI Prophylaxis: Pepcid Prognosis is guarded
--- NOTE | 2018-07-10 17:55 | US ---
EXAMINATION TYPE: US extremity nonvasc mass LT DATE OF EXAM: 07/10/2018 COMPARISON: NONE CLINICAL HISTORY: r/o abscess, left leg cellulitis anterior lower leg FINDINGS: Anterior left lower leg finding consists of hypoechoic fluid area noted posterior to cellulitis and anterior to bone = 3.5 x 1.6 x 0.5cm. IMPRESSION: Slender small fluid collection. MTDD
[2018-07-10 18:09] LABS: Glucose,Whole Blood 212 mg/dL (75-99)
[2018-07-10] MEDS: ACETAMINOPHEN TAB 325 MG TAB PO PRN (20:08)
[2018-07-10] MEDS: ATORVASTATIN 40 MG TAB PO SCH (20:08)
[2018-07-10 20:14] LABS: Glucose,Whole Blood 256 mg/dL (75-99)
--- NOTE | 2018-07-10 20:53 | PN ---
PROGRESS NOTE DATE OF SERVICE: 07/10/2018 REASON FOR FOLLOWUP: Left leg wound and cellulitis. INTERVAL HISTORY: The patient is currently afebrile. The patient has been breathing comfortably. He denies having any chest pain or cough. No abdominal pain. Still complaining of pain in the left leg wound area, about 8/10, and no radiation. PHYSICAL EXAMINATION: Blood pressure 105/61 with a pulse of 78, temperature 97.8. She is 95% on room air. General description is a middle-aged female up in the chair in no distress. RESPIRATORY SYSTEM: Unlabored breathing. Clear to auscultation anteriorly. HEART: S1, S2. Regular rate and rhythm. ABDOMEN: Soft. No tenderness. Left leg is currently dressed up. No obvious drainage on the dressing. LABS: No new labs have been obtained today. Blood culture negative. The patient did have cultures obtained from the left leg, which are currently pending. DIAGNOSTIC IMPRESSION AND PLAN: Patient with left leg wound with secondary cellulitis has shown overall clinical improvement on cefazolin. The patient did have an ultrasound which shows a small area of fluid collection the wound. Will discuss with Vascular Surgery for possible debridement and drainage of the same and deep culture. Antibiotic has been adjusted to oral Keflex, adjusting it further. The area is drained and cultured. Continue with supportive care. MMODL / IJN: [id number] /
[2018-07-10] MEDS: CEPHALEXIN 500 MG CAP PO SCH (22:02)
[2018-07-10 22:12] LABS: Glucose,Whole Blood 224 mg/dL (75-99)
[2018-07-11 00:17] LABS: Glucose,Whole Blood 167 mg/dL (75-99)
[2018-07-11] MEDS: MORPHINE SULFATE 2 MG/ML SYRINGE IV PRN ×3 (00:35→15:32)
[2018-07-11] MEDS: INSULIN REGULAR 100 UNIT in SODIUM CHLORIDE 0.9% 100 ML IV SCH ×5 (00:35→19:39)
[2018-07-11 02:10] LABS: Glucose,Whole Blood 134 mg/dL (75-99)
[2018-07-11 03:51] LABS: Glucose,Whole Blood 145 mg/dL (75-99)
[2018-07-11 06:08] LABS: Glucose,Whole Blood 234 mg/dL (75-99)
[2018-07-11] MEDS: LOSARTAN 25 MG TAB PO SCH (07:30)
[2018-07-11] MEDS: LEVOTHYROXINE 100 MCG TAB PO SCH (07:31)
[2018-07-11] MEDS: INSULIN ASPART (NovoLOG) 100 UNIT/ML VIAL SQ SCH ×3 (07:31→18:03)
[2018-07-11] MEDS: CEPHALEXIN 500 MG CAP PO SCH ×3 (07:31→21:48)
[2018-07-11] MEDS: CLOPIDOGREL 75 MG TAB PO SCH (07:31)
[2018-07-11] MEDS: GLIMEPIRIDE 2 MG TAB PO SCH (07:31)
[2018-07-11] MEDS: FUROSEMIDE 20 MG TAB PO SCH (07:31)
[2018-07-11] MEDS: COLLAGENASE 250 UNIT/GM OINTMENT 30 GM TUBE TOPICAL SCH (07:38)
[2018-07-11 08:02] LABS: Glucose,Whole Blood 204 mg/dL (75-99)
[2018-07-11 08:57] LABS: Basophils # (A) 0.1 k/uL (0-0.2); Basophils % (A) 1 %; Eosinophils # (A) 0.4 k/uL (0-0.7); Eosinophils % (A) 4 %; HCT 34.3 % (34.0-46.0); HGB 10.8 gm/dL (11.4-16.0); Hypochromasia Slight; Lymphocytes # (A) 2.6 k/uL (1.0-4.8); Lymphocytes % (A) 24 %; MCH 28.8 pg (25.0-35.0); MCHC 31.5 g/dL (31.0-37.0); MCV 91.5 fL (80.0-100.0); Mean Platelet Volume 8.3; Monocytes # (A) 0.4 k/uL (0-1.0); Monocytes % (A) 4 %; Neutrophils # (A) 6.9 k/uL (1.3-7.7); Neutrophils % (A) 66 %; Platelet Count 277 k/uL (150-450); RBC 3.75 m/uL (3.80-5.40); RDW 15.4 % (11.5-15.5); WBC 10.5 k/uL (3.8-10.6)
[2018-07-11 09:03] LABS: Magnesium 1.9 mg/dL (1.6-2.3); Potassium 4.6 mmol/L (3.5-5.1)
[2018-07-11 10:07] LABS: Glucose,Whole Blood 222 mg/dL (75-99)
--- NOTE | 2018-07-11 10:57 | P.PN ---
Subjective Patient is seen in follow-up for acute kidney injury on chronic kidney disease. Patient has chronic kidney disease stage III. Baseline creatinine in the range of 1-1.2. Etiology is diabetic kidney disease. Patient presented to the hospital with elevated blood sugars. Blood sugar this morning was 226. Currently on insulin drip. Creatinine peaked at 1.77 this admission and is 1.53 today. She's being treated for lower extremity cellulitis. Oral intake is fair. No vomiting or diarrhea. Vital signs are stable. General: The patient appeared well nourished and normally developed. HEENT: Head exam is unremarkable. Neck is without jugular venous distension. LUNGS: Lungs are clear to auscultation and percussion. Breath sounds decreased. HEART: Rate and Rhythm are regular. First and second heart sounds normal. No murmurs, rubs or gallops. ABDOMEN: Abdominal exam reveals normal bowel sounds. Non-tender and non- distended. No evidence of peritonitis. EXTREMITITES: 1+ edema. Erythema noted. Objective - Vital Signs Vital signs: Vital Signs Temp 98.3 F 07/11/18 07:00 Pulse 81 07/11/18 07:00 Resp 16 07/11/18 07:00 BP 126/74 07/11/18 07:00 Pulse Ox 95 07/11/18 07:00 Intake & Output 07/10/18 07/11/18 07/11/18 18:59 06:59 18:59 Intake Total 453.115 150.482 51.518 Output Total 300 Balance 153.115 150.482 51.518 Intake: Intake, IV Titration 153.115 150.482 51.518 Amount Insulin Regular 100 unit 150.482 51.518 In Sodium Chloride 0.9% 100 ml @ Titrate 20 mls/ hr IV .Q5H3M [facility] Rx#: [id number] Insulin Regular 100 unit 153.115 In Sodium Chloride 0.9% 100 ml @ Titrate IV .Q0M [facility] Rx#:[id number] Oral 300 Output: Urine 300 Other: Voiding Method Toilet Diaper # Voids 2 - Labs CBC & Chem 7: 07/11/18 08:27 07/11/18 08:27 Labs: Abnormal Lab Results - Last 24 Hours (Table) 07/10/18 07/10/18 07/10/18 Range/Units 11:48 13:59 16:34 RBC (3.80-5.40) m/uL Hgb (11.4-16.0) gm/dL Carbon Dioxide (22-30) mmol/L BUN (7-17) mg/dL Creatinine (0.52-1.04) mg/dL Glucose (74-99) mg/dL POC Glucose (mg/dL) 278 H 245 H 248 H (75-99) mg/dL 07/10/18 07/10/18 07/10/18 Range/Units 17:56 20:03 22:00 RBC (3.80-5.40) m/uL Hgb (11.4-16.0) gm/dL Carbon Dioxide (22-30) mmol/L BUN (7-17) mg/dL Creatinine (0.52-1.04) mg/dL Glucose (74-99) mg/dL POC Glucose (mg/dL) 212 H 256 H 224 H (75-99) mg/dL 07/11/18 07/11/18 07/11/18 Range/Units 00:04 01:59 03:40 RBC (3.80-5.40) m/uL Hgb (11.4-16.0) gm/dL Carbon Dioxide (22-30) mmol/L BUN (7-17) mg/dL Creatinine (0.52-1.04) mg/dL Glucose (74-99) mg/dL POC Glucose (mg/dL) 167 H 134 H 145 H (75-99) mg/dL 07/11/18 07/11/18 07/11/18 Range/Units 05:57 07:50 08:27 RBC 3.75 L (3.80-5.40) m/uL Hgb 10.8 L (11.4-16.0) gm/dL Carbon Dioxide (22-30) mmol/L BUN (7-17) mg/dL Creatinine (0.52-1.04) mg/dL Glucose (74-99) mg/dL POC Glucose (mg/dL) 234 H 204 H (75-99) mg/dL 07/11/18 07/11/18 Range/Units 08:27 09:55 RBC (3.80-5.40) m/uL Hgb (11.4-16.0) gm/dL Carbon Dioxide 31 H (22-30) mmol/L BUN 87 H (7-17) mg/dL Creatinine 1.53 H (0.52-1.04) mg/dL Glucose 226 H (74-99) mg/dL POC Glucose (mg/dL) 222 H (75-99) mg/dL Assessment and Plan Plan: Assessment: 1. Chronic kidney disease stage III with baseline creatinine in the range of 1- 1.2 secondary to diabetic kidney disease. Renal ultrasound from April 2018 revealed no evidence of hydronephrosis. 2. Hyperglycemia. Currently on insulin drip. Patient has history of insulin- dependent diabetes mellitus. 3. Lower extremity edema. Improving with diuresis. 4. Hypertension with chronic kidney disease. Controlled. 5. UTI. Urine culture positive for E. coli. 6. Lower extremity cellulitis maintained on antibiotics. Infectious disease following. 7. Hypertonic hyponatremia secondary to hyperglycemia. Better. 8. Hypomagnesemia from diuresis. Improved post replacement. Plan: Decrease Lasix to 40 mg orally twice daily. Hold losartan the systolic blood pressure less than 120. Avoid metformin if GFR below 30. Avoid nephrotoxins. Repeat electrolytes in the morning.
--- NOTE | 2018-07-11 11:06 | P.PN ---
Subjective This is a pleasant 58 years old female with past medical history of COPD, diabetes mellitus, fibromyalgia, hyperlipidemia, hypertension, osteoarthritis, sleep apnea on CPAP/BiPAP, during her bowel incontinence, recent history of diabetic foot ulcer and osteomyelitis, chronic kidney disease. Patient is wheelchair-bound and bedbound for a few months now as she was told me on her ex- at bedside. Patient presents this time because of uncontrolled sugar. She takes Levemir 70 units twice a day plus NovoLog 20 units 3 times with meals , plus metformin 500 twice a day. She says that usually her sugar is 300-400 range however yesterday was around 500 to hold a and her [id number] who who was taking care of her the whole day she got concerned and sent her to emergency room. However patient denies chest pain or dyspnea. No abdominal pain or nausea vomiting. She is eating well. Patient thought that she has infection in her urine because she sees what she thinks yeast in her urine. She does not have karen dysuria or suprapubic pain or tenderness. Patient Vitas looks stable, he is afebrile. Labs show WBC of 14.3 K. Creatini ne 1.23, baseline is 1.2-1.5. Liver enzymes not elevated. Sugar is 330-346. Urinalysis is suspicious for infection. Patient was already started on ceftriaxone and vancomycin in emergency room. 07/04/2018 Patien fully awake on oriented however she feels sleepy at times as per staff. She is currently on morphine 4 mg every 4 hours. We got her lower that to 2 mg every 8 hours when necessary. She denies chest pain or dyspnea. No abdominal complaints. No urinary symptoms like no dysuria or change in frequency. She complains from burning at her leg sides for the cellulitis are. Docusate already evaluated the patient and change her antibiotics to cefazolin. IV vancomycin which was started in the emergency room was stopped since yesterday. Her creatinine today is slightly worse from 1.3 up to 1.7. Her sugar is not controlled and is in the 350s. We'll increase Levemir to 18 units twice a day, and increase NovoLog from 20 up to 30 units before meals 3 times a day. Continue with insulin sliding scale. Leukocytosis shown some improvement from 14,000-12.6 K. Hemoglobin stable. Low magnesium of 1.1 is being replaced. Liver enzymes not elevated. Nephrology input is appreciated, discontinue Cozaar and monitor creatinine and possible DC metformin if still worsening kidney f unction 07/05/2018 Patient feels better. She is more awake and alert. She still been on antibioti cs for her cellulitis in the lower extremity. Hemodynamically stable. Leukocytosis improving. Creatinine down to 1.6. Nephrology team or infectious disease teams are following the. Sugar was uncontrolled and insulin is increased, keep monitoring sugar. Urine culture showing gram-negative bacilli however patient unlikely has UTI. 07/06/2018 pt is awake and breathing quietly ,is complaining from pain in her left leg. erythemia is improving , changed dressing today. vitals are stable sugar is around 300 . pt creatinine is down to 1.4. increase novolog insulin from 30 to 40 U with meals. infectous disease consult is appreciated. no chest pain or dyspnea , pt with no abd pain . 07/07/2018 Today patient with no chest pain or dyspnea. She has no complaint except from her left leg, although patient still better controlled she has erythema and hardness around her ulcer in the left lower leg. Hemodynamically patient is stable. Sugar is still elevated despite increasing the dose of insulin. Her creatinine is improving down to 1.29. WBC is 11.1 K 07/08/2018 Patient infection and so likely is in the left leg is improving. She is awake and alert. No chest pain or dyspnea. No abdominal pain. Patient was hemodynamically stable. No leukocytosis. Sodium 133. Creatinine 1.1. Sugar still resistant to insulin therapy. We will start the patient on insulin drip today. Nephrology input is appreciated. 07/09/2018 pt has persistant cellulitis and swelling of her left leg, her left leg is warm. today doppler US was negative for DVT, we called vascular surgeon for evaluation her wound and their recommendation is appreciated , please refer to their note for more detail. she is still on antibiotic as per infectious disease who is managing her antibiotic, she is currently on cefazolin . we will order repeat us of the lower ext to rule out abscess . pt remains on insulin drip and despite that she has difficulty controlling her sugar which is still in 200-300s range. nephrology team are following the case as well . we will increase her novolog insulin to 30 U with meal . levemir is on hold for insulin drip 07/10/2018 Patient is still have cellulitis in the lower extremity, discussed the case with infectious disease, when going to do ultra sound of the lower extremity to rule out abscess. Patient antibiotic management as per ID team. Patient does has resistant hyperglycemia, currently she is on insulin drip at 20 units per hour and her sugars is around 270 milligrams per dl. Also we'll do physical therapy and a capacious therapy evaluation. Vascular surgery input is appreciated 06/24/2018 Patient still complaining of from pain and tenderness at her left nova infection and ulcer. Ultrasound showing small abscess about 3.5 X1.5X 0.5 cm. Discussed the case witvascular yogeshrDaron Zhou currently he will come under evaluated the patient for second debridement. Paient is current insulin drip a is difficult to control, could be related to her infection and abscess in her left leg. Discussed with the staff Objective - Vital Signs Vital signs: Vital Signs Temp 98.3 F 07/11/18 07:00 Pulse 81 07/11/18 07:00 Resp 16 07/11/18 07:00 BP 126/74 07/11/18 07:00 Pulse Ox 95 07/11/18 07:00 Intake & Output 07/10/18 07/11/18 07/11/18 18:59 06:59 18:59 Intake Total 453.115 150.482 51.518 Output Total 300 Balance 153.115 150.482 51.518 Intake: Intake, IV Titration 153.115 150.482 51.518 Amount Insulin Regular 100 unit 150.482 51.518 In Sodium Chloride 0.9% 100 ml @ Titrate 20 mls/ hr IV .Q5H3M [facility] Rx#: [id number] Insulin Regular 100 unit 153.115 In Sodium Chloride 0.9% 100 ml @ Titrate IV .Q0M [facility] Rx#:[id number] Oral 300 Output: Urine 300 Other: Voiding Method Toilet Diaper # Voids 2 - Exam GENERAL: The patient is alert and oriented x3, not in any acute distress. Obese HEENT: Pupils are round and equally reacting to light. EOMI. No scleral icterus. No conjunctival pallor. Normocephalic, atraumatic. No pharyngeal erythema. No thyromegaly. CARDIOVASCULAR: S1 and S2 present. No murmurs, rubs, or gallops. PULMONARY: Chest is clear to auscultation, no wheezing or crackles. ABDOMEN: Soft, nontender, nondistended, normoactive bowel sounds. No palpable organomegaly. MUSCULOSKELETAL: No joint swelling or deformity. -EXTREMITIES: No cyanosis, clubbing, or pedal edema. Bilateral lower extremity redness on the front legs with no evidence of cellulitis, it looks chronic dermatitis. Status post right toe amputation. -NEUROLOGICAL: Gross neurological examination did not reveal any focal deficits. Patient is bedbound for a few months SKIN: No rashes. - Labs CBC & Chem 7: 07/11/18 08:27 07/11/18 08:27 Labs: Abnormal Lab Results - Last 24 Hours (Table) 07/10/18 07/10/18 07/10/18 Range/Units 11:48 13:59 16:34 RBC (3.80-5.40) m/uL Hgb (11.4-16.0) gm/dL Carbon Dioxide (22-30) mmol/L BUN (7-17) mg/dL Creatinine (0.52-1.04) mg/dL Glucose (74-99) mg/dL POC Glucose (mg/dL) 278 H 245 H 248 H (75-99) mg/dL 07/10/18 07/10/18 07/10/18 Range/Units 17:56 20:03 22:00 RBC (3.80-5.40) m/uL Hgb (11.4-16.0) gm/dL Carbon Dioxide (22-30) mmol/L BUN (7-17) mg/dL Creatinine (0.52-1.04) mg/dL Glucose (74-99) mg/dL POC Glucose (mg/dL) 212 H 256 H 224 H (75-99) mg/dL 07/11/18 07/11/18 07/11/18 Range/Units 00:04 01:59 03:40 RBC (3.80-5.40) m/uL Hgb (11.4-16.0) gm/dL Carbon Dioxide (22-30) mmol/L BUN (7-17) mg/dL Creatinine (0.52-1.04) mg/dL Glucose (74-99) mg/dL POC Glucose (mg/dL) 167 H 134 H 145 H (75-99) mg/dL 07/11/18 07/11/18 07/11/18 Range/Units 05:57 07:50 08:27 RBC 3.75 L (3.80-5.40) m/uL Hgb 10.8 L (11.4-16.0) gm/dL Carbon Dioxide (22-30) mmol/L BUN (7-17) mg/dL Creatinine (0.52-1.04) mg/dL Glucose (74-99) mg/dL POC Glucose (mg/dL) 234 H 204 H (75-99) mg/dL 07/11/18 07/11/18 Range/Units 08:27 09:55 RBC (3.80-5.40) m/uL Hgb (11.4-16.0) gm/dL Carbon Dioxide 31 H (22-30) mmol/L BUN 87 H (7-17) mg/dL Creatinine 1.53 H (0.52-1.04) mg/dL Glucose 226 H (74-99) mg/dL POC Glucose (mg/dL) 222 H (75-99) mg/dL Assessment and Plan Assessment: Bilateral lower extremity cellulitis, more on the left left leg abscess Acute on chronic kidney injury Asymptomatic bacteriuria Uncontrolled hyperglycemia, with resistant hyperglycemia Type 2 diabetes mellitus Diabetic nephropathy, stage III chronic kidney disease Diabetic neuropathy Hypertension Hyperlipidemia COPD, not in acute exacerbation History of osteoarthritis Sleep apnea on CPAP/BiPAP Patient is bedbound Plan: This is a pleasant 58s old female who presents with uncontrolled diabetes and cellulitis and kidney disease. infectious disease consult for antibiotic adjustment. Follow-up urine culture results. We ordered urine culture and blood culture. Increase her insulin dose and follow-up her Accu-Cheks with insulin sliding scale. Nephrology consult is appreciated. Monitor renal func tion. Labs and medication were reviewed.. Continue same treatment. Continue with symptomatic treatment. Resume home medication. Monitor lytes and vitals. DVT and GI prophylaxis. Further recommendations of the clinical course of the patient DVT prophylaxis: Subcutaneous heparin GI Prophylaxis: Pepcid Prognosis is guarded
[2018-07-11 12:30] LABS: Glucose,Whole Blood 189 mg/dL (75-99)
[2018-07-11 14:11] LABS: Glucose,Whole Blood 204 mg/dL (75-99)
[2018-07-11] MEDS: FUROSEMIDE 40 MG TAB PO SCH (15:47)
[2018-07-11] MEDS ORDERED: LIDOCAINE 1% INJ 10MG/ML (20 ML MDV) SQ ONE (15:53)
[2018-07-11 16:19] LABS: Glucose,Whole Blood 197 mg/dL (75-99)
[2018-07-11 17:53] LABS: Hemoglobin A1C 12.1 % (4.0-6.0)
--- NOTE | 2018-07-11 17:56 | PN ---
PROGRESS NOTE DATE OF SERVICE: 07/11/2018 REASON FOR FOLLOWUP: Left leg cellulitis with a question of abscess. INTERVAL HISTORY: The patient is currently afebrile. The patient has been breathing comfortably. Denies having any chest pain or shortness of breath or cough. No abdominal pain. Still complaining of pain to the left anterior leg area. PHYSICAL EXAMINATION: Blood pressure 119/70 with a pulse of 63, temperature 98.3. She is 97% on room air. General description is a middle-aged female up in the chair in no distress. RESPIRATORY SYSTEM: Unlabored breathing. Clear to auscultation anteriorly. HEART: S1, S2. Regular rate and rhythm. ABDOMEN: Soft. No tenderness. Left leg swelling. No significant redness or drainage. LABS: Hemoglobin is 10.8, white count 10.5, BUN of 87, creatinine 1.53. DIAGNOSTIC IMPRESSION AND PLAN: Patient with left lower extremity cellulitis, now with ultrasound showing possible fluid collection. She is scheduled for a bedside debridement of the same. Culture should be obtained. Continue with Keflex. Antibiotic adjusted further on the basis of culture report. Continue supportive care. MMODL / IJN: [id number] /
[2018-07-11 18:09] LABS: Glucose,Whole Blood 201 mg/dL (75-99)
[2018-07-11 20:07] LABS: Glucose,Whole Blood 186 mg/dL (75-99)
--- NOTE | 2018-07-11 21:17 | PCN ---
PROCEDURE NOTE PREOPERATIVE DIAGNOSIS: Cellulitis with possible abscess left lower extremity. PROCEDURE PERFORMED: I and D and took the deep culture. INDICATIONS: This patient was seen in her room. Patient is known to me from the wound clinic. She came with cellulitis. Ultrasound showed there is some fluid noted on the left lower extremity anterior aspect. DESCRIPTION OF PROCEDURE: Left foot was prepped and drapes applied in usual sterile manner. 1% lidocaine plain infiltrated. A small incision was made about 1 cm on the anterior aspect of the left lower leg. Deepened through skin, fat, and fascia. Using the scissors, we made some deep incision with sharp knife and using scissors we went underneath the subcu tissue and fat and some fluid was noted, but no karen pus was noted. We took some culture and the wound was irrigated with saline and excess silver rope was applied to the wound which should be changed every 48 hours. The patient tolerated the procedure well. MMODL / IJN: [id number] /
[2018-07-11] MEDS: ATORVASTATIN 40 MG TAB PO SCH (21:48)
[2018-07-11 22:16] LABS: Glucose,Whole Blood 156 mg/dL (75-99)
[2018-07-12 00:14] LABS: Glucose,Whole Blood 149 mg/dL (75-99)
[2018-07-12] MEDS: INSULIN REGULAR 100 UNIT in SODIUM CHLORIDE 0.9% 100 ML IV SCH ×3 (00:29→08:12)
[2018-07-12 02:17] LABS: Glucose,Whole Blood 143 mg/dL (75-99)
[2018-07-12 04:11] LABS: Glucose,Whole Blood 151 mg/dL (75-99)
[2018-07-12] MEDS: LEVOTHYROXINE 100 MCG TAB PO SCH (06:05)
[2018-07-12 06:15] LABS: Glucose,Whole Blood 144 mg/dL (75-99)
[2018-07-12] MEDS: CLOPIDOGREL 75 MG TAB PO SCH (07:30)
[2018-07-12] MEDS: CEPHALEXIN 500 MG CAP PO SCH ×3 (07:30→21:35)
[2018-07-12] MEDS: FUROSEMIDE 40 MG TAB PO SCH ×2 (07:30→15:25)
[2018-07-12] MEDS: LOSARTAN 25 MG TAB PO SCH (07:30)
[2018-07-12] MEDS: INSULIN ASPART (NovoLOG) 100 UNIT/ML VIAL SQ SCH ×5 (07:32→21:36)
[2018-07-12] MEDS: GLIMEPIRIDE 2 MG TAB PO SCH (07:32)
[2018-07-12 08:02] LABS: Glucose,Whole Blood 160 mg/dL (75-99)
[2018-07-12 08:27] LABS: Calcium 9.6 mg/dL (8.4-10.2); Potassium 4.5 mmol/L (3.5-5.1)
[2018-07-12 08:28] LABS: Basophils # (A) 0.1 k/uL (0-0.2); Basophils % (A) 1 %; Eosinophils # (A) 0.5 k/uL (0-0.7); Eosinophils % (A) 4 %; HCT 31.8 % (34.0-46.0); HGB 10.3 gm/dL (11.4-16.0); Lymphocytes # (A) 2.4 k/uL (1.0-4.8); Lymphocytes % (A) 21 %; MCH 29.1 pg (25.0-35.0); MCHC 32.3 g/dL (31.0-37.0); MCV 89.9 fL (80.0-100.0); Mean Platelet Volume 8.4; Monocytes # (A) 0.6 k/uL (0-1.0); Monocytes % (A) 5 %; Neutrophils # (A) 7.9 k/uL (1.3-7.7); Neutrophils % (A) 67 %; Platelet Count 269 k/uL (150-450); RBC 3.54 m/uL (3.80-5.40); RDW 14.9 % (11.5-15.5); WBC 11.7 k/uL (3.8-10.6)
--- NOTE | 2018-07-12 08:57 | P.PN ---
Subjective Patient is seen in follow-up for acute kidney injury on chronic kidney disease. Patient has chronic kidney disease stage III. Baseline creatinine in the range of 1-1.2. Etiology is diabetic kidney disease. Patient presented to the hospital with elevated blood sugars. Blood sugar this morning was 159. Currently on insulin drip. Creatinine peaked at 1.77 this admission and is 1.45 today. She's being treated for lower extremity cellulitis. Also on oral diuretics for edema. Oral intake is fair. No vomiting or diarrhea. Vital signs are stable. General: The patient appeared well nourished and normally developed. HEENT: Head exam is unremarkable. Neck is without jugular venous distension. LUNGS: Lungs are clear to auscultation and percussion. Breath sounds decreased. HEART: Rate and Rhythm are regular. First and second heart sounds normal. No murmurs, rubs or gallops. ABDOMEN: Abdominal exam reveals normal bowel sounds. Non-tender and non- distended. No evidence of peritonitis. EXTREMITITES: 1+ edema. Erythema noted. Objective - Vital Signs Vital signs: Vital Signs Temp 98 F 07/12/18 07:00 Pulse 80 07/12/18 07:00 Resp 16 07/12/18 07:00 BP 103/68 07/12/18 07:00 Pulse Ox 94 L 07/12/18 07:00 Intake & Output 07/11/18 07/12/18 07/12/18 18:59 06:59 18:59 Intake Total 152.518 30.957 69.64 Balance 152.518 30.957 69.64 Weight 130.181 kg Intake: Intake, IV Titration 152.518 30.957 69.64 Amount Insulin Regular 100 unit 152.518 30.957 69.64 In Sodium Chloride 0.9% 100 ml @ Titrate 20 mls/ hr IV .Q5H3M [facility] Rx#: [id number] Other: Voiding Method Toilet Diaper # Voids 3 2 - Labs CBC & Chem 7: 07/12/18 07:48 07/12/18 07:48 Labs: Abnormal Lab Results - Last 24 Hours (Table) 07/11/18 07/11/18 07/11/18 Range/Units 08:27 08:27 08:27 WBC (3.8-10.6) k/uL RBC 3.75 L (3.80-5.40) m/uL Hgb 10.8 L (11.4-16.0) gm/dL Hct (34.0-46.0) % Neutrophils # (1.3-7.7) k/uL Carbon Dioxide 31 H (22-30) mmol/L BUN 87 H (7-17) mg/dL Creatinine 1.53 H (0.52-1.04) mg/dL Glucose 226 H (74-99) mg/dL POC Glucose (mg/dL) (75-99) mg/dL Hemoglobin A1c 12.1 H (4.0-6.0) % 07/11/18 07/11/18 07/11/18 Range/Units 09:55 12:18 13:59 WBC (3.8-10.6) k/uL RBC (3.80-5.40) m/uL Hgb (11.4-16.0) gm/dL Hct (34.0-46.0) % Neutrophils # (1.3-7.7) k/uL Carbon Dioxide (22-30) mmol/L BUN (7-17) mg/dL Creatinine (0.52-1.04) mg/dL Glucose (74-99) mg/dL POC Glucose (mg/dL) 222 H 189 H 204 H (75-99) mg/dL Hemoglobin A1c (4.0-6.0) % 07/11/18 07/11/18 07/11/18 Range/Units 16:07 17:57 19:56 WBC (3.8-10.6) k/uL RBC (3.80-5.40) m/uL Hgb (11.4-16.0) gm/dL Hct (34.0-46.0) % Neutrophils # (1.3-7.7) k/uL Carbon Dioxide (22-30) mmol/L BUN (7-17) mg/dL Creatinine (0.52-1.04) mg/dL Glucose (74-99) mg/dL POC Glucose (mg/dL) 197 H 201 H 186 H (75-99) mg/dL Hemoglobin A1c (4.0-6.0) % 07/11/18 07/12/18 07/12/18 Range/Units 22:04 00:03 02:05 WBC (3.8-10.6) k/uL RBC (3.80-5.40) m/uL Hgb (11.4-16.0) gm/dL Hct (34.0-46.0) % Neutrophils # (1.3-7.7) k/uL Carbon Dioxide (22-30) mmol/L BUN (7-17) mg/dL Creatinine (0.52-1.04) mg/dL Glucose (74-99) mg/dL POC Glucose (mg/dL) 156 H 149 H 143 H (75-99) mg/dL Hemoglobin A1c (4.0-6.0) % 07/12/18 07/12/18 07/12/18 Range/Units 04:00 06:03 07:48 WBC 11.7 H (3.8-10.6) k/uL RBC 3.54 L (3.80-5.40) m/uL Hgb 10.3 L (11.4-16.0) gm/dL Hct 31.8 L (34.0-46.0) % Neutrophils # 7.9 H (1.3-7.7) k/uL Carbon Dioxide (22-30) mmol/L BUN (7-17) mg/dL Creatinine (0.52-1.04) mg/dL Glucose (74-99) mg/dL POC Glucose (mg/dL) 151 H 144 H (75-99) mg/dL Hemoglobin A1c (4.0-6.0) % 07/12/18 07/12/18 Range/Units 07:48 07:51 WBC (3.8-10.6) k/uL RBC (3.80-5.40) m/uL Hgb (11.4-16.0) gm/dL Hct (34.0-46.0) % Neutrophils # (1.3-7.7) k/uL Carbon Dioxide (22-30) mmol/L BUN 94 H (7-17) mg/dL Creatinine 1.45 H (0.52-1.04) mg/dL Glucose 159 H (74-99) mg/dL POC Glucose (mg/dL) 160 H (75-99) mg/dL Hemoglobin A1c (4.0-6.0) % Microbiology - Last 24 Hours (Table) 07/11/18 16:06 Gram Stain - Preliminary Leg - Left Wound Culture - Preliminary 07/11/18 16:06 Anaerobic Culture - Preliminary Leg - Left 07/09/18 13:26 Gram Stain - Final Leg - Left Wound Culture - Final Assessment and Plan Plan: Assessment: 1. Chronic kidney disease stage III with baseline creatinine in the range of 1- 1.2 secondary to diabetic kidney disease. Renal ultrasound from April 2018 revealed no evidence of hydronephrosis. 2. Hyperglycemia. Currently on insulin drip. Patient has history of insulin- dependent diabetes mellitus. 3. Lower extremity edema. Improving with diuresis. 4. Hypertension with chronic kidney disease. Controlled. 5. UTI. Urine culture positive for E. coli. 6. Lower extremity cellulitis maintained on antibiotics. Infectious disease following. 7. Hypertonic hyponatremia secondary to hyperglycemia. Better. 8. Hypomagnesemia from diuresis. Improved post replacement. Plan: Maintain Lasix 40 mg orally twice daily. Hold losartan the systolic blood pressure less than 120. Avoid metformin if GFR below 30. Avoid nephrotoxins. Repeat electrolytes in the morning.
[2018-07-12] MEDS: COLLAGENASE 250 UNIT/GM OINTMENT 30 GM TUBE TOPICAL SCH (09:08)
[2018-07-12 10:43] LABS: Glucose,Whole Blood 223 mg/dL (75-99)
[2018-07-12] MEDS: INSULIN DETEMIR (LEVEMIR) 100 UNIT/ML SYR SQ SCH ×2 (12:01→21:35)
[2018-07-12 14:08] LABS: Glucose,Whole Blood 253 mg/dL (75-99)
[2018-07-12] MEDS: MORPHINE SULFATE 2 MG/ML SYRINGE IV PRN (14:30)
[2018-07-12 14:52] LABS: Glucose,Whole Blood 277 mg/dL (75-99)
[2018-07-12 17:12] LABS: Glucose,Whole Blood 217 mg/dL (75-99)
--- NOTE | 2018-07-12 20:09 | PN ---
PROGRESS NOTE DATE OF SERVICE: 07/12/2018. REASON FOR FOLLOWUP: Left leg wound cellulitis. INTERVAL HISTORY: The patient is afebrile. The patient is status post bedside evacuation of hematoma to the left anterior leg. The patient overall pain has improved after the procedure. Denies any chest pain, shortness of breath. No cough. No abdominal pain. No diarrhea. PHYSICAL EXAMINATION: Blood pressure is 135/86, pulse of 82, temperature 98. She is 93% on room air. General description is a middle-aged female up in the bed in no distress. Respiratory system: Unlabored breathing. Clear to auscultation anteriorly. Heart S1, S2. Regular rate and rhythm. Abdomen soft, no tenderness. Left leg is currently dressed up. No obvious drainage on the dressing. LABS: Hemoglobin is 10.2, white count 11.7, BUN of 94, creatinine 1.45. The left leg wound cultures are currently pending. DIAGNOSTIC IMPRESSION AND PLAN: Patient admitted to the hospital with fever. The patient did have a left leg cellulitis. Overall cellulitis has improved. However, the patient did have persistent pain. Possible hematoma at the left leg that has been evacuated without any improvement. If those cultures remain to be negative, she will finish therapy with oral Keflex. Local wound care with Aquacel silver packing of the wound and outpatient followup. MMODL / IJN: [id number] /
[2018-07-12 20:14] LABS: Glucose,Whole Blood 259 mg/dL (75-99)
[2018-07-12] MEDS: ATORVASTATIN 40 MG TAB PO SCH (21:35)
[2018-07-13 02:54] LABS: Glucose,Whole Blood 209 mg/dL (75-99)
[2018-07-13] MEDS: LEVOTHYROXINE 100 MCG TAB PO SCH (05:46)
[2018-07-13 07:11] LABS: Glucose,Whole Blood 220 mg/dL (75-99)
[2018-07-13] MEDS: GLIMEPIRIDE 2 MG TAB PO SCH (07:46)
[2018-07-13] MEDS: INSULIN DETEMIR (LEVEMIR) 100 UNIT/ML SYR SQ SCH ×2 (07:46→20:46)
[2018-07-13] MEDS: INSULIN ASPART (NovoLOG) 100 UNIT/ML VIAL SQ SCH ×7 (07:47→20:45)
[2018-07-13 08:16] LABS: Basophils # (A) 0.1 k/uL (0-0.2); Basophils % (A) 1 %; Eosinophils # (A) 0.5 k/uL (0-0.7); Eosinophils % (A) 5 %; HCT 33.5 % (34.0-46.0); HGB 10.5 gm/dL (11.4-16.0); Hypochromasia Slight; Lymphocytes % (A) 20 %; MCH 28.7 pg (25.0-35.0); MCHC 31.5 g/dL (31.0-37.0); MCV 91.1 fL (80.0-100.0); Mean Platelet Volume 8.2; Monocytes # (A) 0.4 k/uL (0-1.0); Monocytes % (A) 4 %; Neutrophils % (A) 69 %; Platelet Count 261 k/uL (150-450); RBC 3.67 m/uL (3.80-5.40); RDW 15.3 % (11.5-15.5); WBC 10.2 k/uL (3.8-10.6)
[2018-07-13 08:28] LABS: Calcium 9.4 mg/dL (8.4-10.2); Potassium 4.8 mmol/L (3.5-5.1)
--- NOTE | 2018-07-13 08:47 | P.PN ---
Subjective This is a pleasant 58 years old female with past medical history of COPD, diabetes mellitus, fibromyalgia, hyperlipidemia, hypertension, osteoarthritis, sleep apnea on CPAP/BiPAP, during her bowel incontinence, recent history of diabetic foot ulcer and osteomyelitis, chronic kidney disease. Patient is wheelchair-bound and bedbound for a few months now as she was told me on her ex- at bedside. Patient presents this time because of uncontrolled sugar. She takes Levemir 70 units twice a day plus NovoLog 20 units 3 times with meals , plus metformin 500 twice a day. She says that usually her sugar is 300-400 range however yesterday was around 500 to hold a and her [id number] who who was taking care of her the whole day she got concerned and sent her to emergency room. However patient denies chest pain or dyspnea. No abdominal pain or nausea vomiting. She is eating well. Patient thought that she has infection in her urine because she sees what she thinks yeast in her urine. She does not have karen dysuria or suprapubic pain or tenderness. Patient Vitas looks stable, he is afebrile. Labs show WBC of 14.3 K. Creatini ne 1.23, baseline is 1.2-1.5. Liver enzymes not elevated. Sugar is 330-346. Urinalysis is suspicious for infection. Patient was already started on ceftriaxone and vancomycin in emergency room. 07/04/2018 Patien fully awake on oriented however she feels sleepy at times as per staff. She is currently on morphine 4 mg every 4 hours. We got her lower that to 2 mg every 8 hours when necessary. She denies chest pain or dyspnea. No abdominal complaints. No urinary symptoms like no dysuria or change in frequency. She complains from burning at her leg sides for the cellulitis are. Docusate already evaluated the patient and change her antibiotics to cefazolin. IV vancomycin which was started in the emergency room was stopped since yesterday. Her creatinine today is slightly worse from 1.3 up to 1.7. Her sugar is not controlled and is in the 350s. We'll increase Levemir to 18 units twice a day, and increase NovoLog from 20 up to 30 units before meals 3 times a day. Continue with insulin sliding scale. Leukocytosis shown some improvement from 14,000-12.6 K. Hemoglobin stable. Low magnesium of 1.1 is being replaced. Liver enzymes not elevated. Nephrology input is appreciated, discontinue Cozaar and monitor creatinine and possible DC metformin if still worsening kidney f unction 07/05/2018 Patient feels better. She is more awake and alert. She still been on antibioti cs for her cellulitis in the lower extremity. Hemodynamically stable. Leukocytosis improving. Creatinine down to 1.6. Nephrology team or infectious disease teams are following the. Sugar was uncontrolled and insulin is increased, keep monitoring sugar. Urine culture showing gram-negative bacilli however patient unlikely has UTI. 07/06/2018 pt is awake and breathing quietly ,is complaining from pain in her left leg. erythemia is improving , changed dressing today. vitals are stable sugar is around 300 . pt creatinine is down to 1.4. increase novolog insulin from 30 to 40 U with meals. infectous disease consult is appreciated. no chest pain or dyspnea , pt with no abd pain . 07/07/2018 Today patient with no chest pain or dyspnea. She has no complaint except from her left leg, although patient still better controlled she has erythema and hardness around her ulcer in the left lower leg. Hemodynamically patient is stable. Sugar is still elevated despite increasing the dose of insulin. Her creatinine is improving down to 1.29. WBC is 11.1 K 07/08/2018 Patient infection and so likely is in the left leg is improving. She is awake and alert. No chest pain or dyspnea. No abdominal pain. Patient was hemodynamically stable. No leukocytosis. Sodium 133. Creatinine 1.1. Sugar still resistant to insulin therapy. We will start the patient on insulin drip today. Nephrology input is appreciated. 07/09/2018 pt has persistant cellulitis and swelling of her left leg, her left leg is warm. today doppler US was negative for DVT, we called vascular surgeon for evaluation her wound and their recommendation is appreciated , please refer to their note for more detail. she is still on antibiotic as per infectious disease who is managing her antibiotic, she is currently on cefazolin . we will order repeat us of the lower ext to rule out abscess . pt remains on insulin drip and despite that she has difficulty controlling her sugar which is still in 200-300s range. nephrology team are following the case as well . we will increase her novolog insulin to 30 U with meal . levemir is on hold for insulin drip 07/10/2018 Patient is still have cellulitis in the lower extremity, discussed the case with infectious disease, when going to do ultra sound of the lower extremity to rule out abscess. Patient antibiotic management as per ID team. Patient does has resistant hyperglycemia, currently she is on insulin drip at 20 units per hour and her sugars is around 270 milligrams per dl. Also we'll do physical therapy and a capacious therapy evaluation. Vascular surgery input is appreciated 07/11/2018 Patient still complaining of from pain and tenderness at her left nova infection and ulcer. Ultrasound showing small abscess about 3.5 X1.5X 0.5 cm. Discussed the case witvascular surgerDaron Zhou currently he will come under evaluated the patient for second debridement. Paient is current insulin drip a is difficult to control, could be related to her infection and abscess in her left leg. Discussed with the staff 07/12/2018 pt today started feeling better , she is status post debridement and I&D of her left leg abscess, her leg looks less inflamed and less swollen . dressing in placed and there is a wick in the wound. pt insulin drip was stopped and she swtiched back to levemir 80 mg and then 90 Units, BID plus novolog and insulin sliding scale, pt still needs monitoring for her blood sugar . also wound culture is pending . pt is on keflex and ID input is appreciated . metformin was refused by the pt for diarrhea. Objective - Vital Signs Vital signs: Vital Signs Temp 98.0 F 07/12/18 20:10 Pulse 82 07/12/18 20:10 Resp 18 07/12/18 20:10 BP 121/76 07/12/18 20:10 Pulse Ox 96 07/12/18 20:10 Intake & Output 07/12/18 07/12/18 07/13/18 06:59 18:59 06:59 Intake Total 30.957 1201.765 250 Balance 30.957 1201.765 250 Weight 130.181 kg Intake: Intake, IV Titration 30.957 111.765 Amount Insulin Regular 100 unit 30.957 111.765 In Sodium Chloride 0.9% 100 ml @ Titrate 20 mls/ hr IV .Q5H3M [facility] Rx#: [id number] Oral 1090 250 Other: Voiding Method Toilet Diaper # Voids 2 4 1 - Exam GENERAL: The patient is alert and oriented x3, not in any acute distress. Obese HEENT: Pupils are round and equally reacting to light. EOMI. No scleral icterus. No conjunctival pallor. Normocephalic, atraumatic. No pharyngeal erythema. No thyromegaly. CARDIOVASCULAR: S1 and S2 present. No murmurs, rubs, or gallops. PULMONARY: Chest is clear to auscultation, no wheezing or crackles. ABDOMEN: Soft, nontender, nondistended, normoactive bowel sounds. No palpable organomegaly. MUSCULOSKELETAL: No joint swelling or deformity. -EXTREMITIES: No cyanosis, clubbing, or pedal edema. Bilateral lower extremity redness on the front legs with no evidence of cellulitis, it looks chronic dermatitis. Status post right toe amputation. -NEUROLOGICAL: Gross neurological examination did not reveal any focal deficits. Patient is bedbound for a few months SKIN: No rashes. - Labs CBC & Chem 7: 07/13/18 07:10 07/13/18 07:10 Labs: Abnormal Lab Results - Last 24 Hours (Table) 07/11/18 07/12/18 07/12/18 Range/Units 22:04 00:03 02:05 WBC (3.8-10.6) k/uL RBC (3.80-5.40) m/uL Hgb (11.4-16.0) gm/dL Hct (34.0-46.0) % Neutrophils # (1.3-7.7) k/uL BUN (7-17) mg/dL Creatinine (0.52-1.04) mg/dL Glucose (74-99) mg/dL POC Glucose (mg/dL) 156 H 149 H 143 H (75-99) mg/dL 07/12/18 07/12/18 07/12/18 Range/Units 04:00 06:03 07:48 WBC 11.7 H (3.8-10.6) k/uL RBC 3.54 L (3.80-5.40) m/uL Hgb 10.3 L (11.4-16.0) gm/dL Hct 31.8 L (34.0-46.0) % Neutrophils # 7.9 H (1.3-7.7) k/uL BUN (7-17) mg/dL Creatinine (0.52-1.04) mg/dL Glucose (74-99) mg/dL POC Glucose (mg/dL) 151 H 144 H (75-99) mg/dL 07/12/18 07/12/18 07/12/18 Range/Units 07:48 07:51 10:26 WBC (3.8-10.6) k/uL RBC (3.80-5.40) m/uL Hgb (11.4-16.0) gm/dL Hct (34.0-46.0) % Neutrophils # (1.3-7.7) k/uL BUN 94 H (7-17) mg/dL Creatinine 1.45 H (0.52-1.04) mg/dL Glucose 159 H (74-99) mg/dL POC Glucose (mg/dL) 160 H 223 H (75-99) mg/dL 07/12/18 07/12/18 07/12/18 Range/Units 13:56 14:40 17:00 WBC (3.8-10.6) k/uL RBC (3.80-5.40) m/uL Hgb (11.4-16.0) gm/dL Hct (34.0-46.0) % Neutrophils # (1.3-7.7) k/uL BUN (7-17) mg/dL Creatinine (0.52-1.04) mg/dL Glucose (74-99) mg/dL POC Glucose (mg/dL) 253 H 277 H 217 H (75-99) mg/dL 07/12/18 Range/Units 20:03 WBC (3.8-10.6) k/uL RBC (3.80-5.40) m/uL Hgb (11.4-16.0) gm/dL Hct (34.0-46.0) % Neutrophils # (1.3-7.7) k/uL BUN (7-17) mg/dL Creatinine (0.52-1.04) mg/dL Glucose (74-99) mg/dL POC Glucose (mg/dL) 259 H (75-99) mg/dL Microbiology - Last 24 Hours (Table) 07/11/18 16:06 Gram Stain - Preliminary Leg - Left Wound Culture - Preliminary 07/11/18 16:06 Anaerobic Culture - Preliminary Leg - Left 07/09/18 13:26 Gram Stain - Final Leg - Left Wound Culture - Final Assessment and Plan Assessment: Bilateral lower extremity cellulitis, more on the left left leg abscess Acute on chronic kidney injury Asymptomatic bacteriuria Uncontrolled hyperglycemia, with resistant hyperglycemia Type 2 diabetes mellitus Diabetic nephropathy, stage III chronic kidney disease Diabetic neuropathy Hypertension Hyperlipidemia COPD, not in acute exacerbation History of osteoarthritis Sleep apnea on CPAP/BiPAP Patient is bedbound Plan: This is a pleasant 58s old female who presents with uncontrolled diabetes and cellulitis and kidney disease. infectious disease consult for antibiotic adjustment. Follow-up urine culture results. We ordered urine culture and blood culture. Increase her insulin dose and follow-up her Accu-Cheks with insulin sliding scale. Nephrology consult is appreciated. Monitor renal function. Labs and medication were reviewed.. Continue same treatment. Continue with symptomatic treatment. Resume home medication. Monitor lytes and vitals. DVT and GI prophylaxis. Further recommendations of the clinical course of the patient DVT prophylaxis: Subcutaneous heparin GI Prophylaxis: Pepcid Prognosis is guarded
[2018-07-13] MEDS: ACETAMINOPHEN TAB 325 MG TAB PO PRN (10:55)
[2018-07-13] MEDS: LOSARTAN 25 MG TAB PO SCH (10:56)
[2018-07-13] MEDS: CLOPIDOGREL 75 MG TAB PO SCH (10:56)
[2018-07-13] MEDS: CEPHALEXIN 500 MG CAP PO SCH ×3 (10:58→22:44)
[2018-07-13] MEDS: COLLAGENASE 250 UNIT/GM OINTMENT 30 GM TUBE TOPICAL SCH (11:02)
[2018-07-13] MEDS: FUROSEMIDE 40 MG TAB PO SCH (11:30)
--- NOTE | 2018-07-13 11:49 | PN ---
PROGRESS NOTE The patient is known to me from the wound clinic. The patient has been admitted with cellulitis and we did the debridement and there was concern about by ultrasound there is an abscess. We mad a small incision and culture was taken. The culture report came back no growth seen. Urine has E coli. The patient is under care of Infectious Disease. PLAN: Continue with local wound care. When patient is discharged from the hospital, will follow up in the wound clinic with me. MMJENNIFERL / IJN: [id number] /
[2018-07-13 11:52] LABS: Glucose,Whole Blood 194 mg/dL (75-99)
[2018-07-13] MEDS: MORPHINE SULFATE 2 MG/ML SYRINGE IV PRN ×2 (12:23→20:54)
--- NOTE | 2018-07-13 13:28 | PN ---
PROGRESS NOTE Patient is seen for followup for chronic kidney disease and acute kidney injury. She was admitted. She is currently being treated for lower extremity cellulitis. Patient also has significant edema. She is maintained on diuretics. Her weight has been about the same. Overall, patient states she is feeling better and her leg swelling has improved. Currently, patient's Lasix at 40 mg p.o. b.i.d. She states she was taking 40 mg b.i.d. at home. Blood pressure is not low. The patient is maintained on angiotensin receptor blockers. However, I do see occasional systolic readings of 107 and 103 mmHg. PHYSICAL EXAMINATION: On examination, blood pressure this morning 107/71, heart rate 80 per minute. She is afebrile. Examination of the heart S1, S2. Examination of the lungs, bilateral breath sounds are heard. Abdomen is soft, morbidly obese. Examination lower extremities shows chronic skin changes. Edema 2+ bilaterally. 3+ edema noted on left lower extremity with weeping as well. [employer] exam is grossly intact. Patient moving all 4 extremities. LABS: Show sodium 139, potassium 4.8, chloride 103, BUN 81, serum creatinine 1.48, hemoglobin 10.5 g/dL. ASSESSMENT: 1. Chronic kidney disease stage 3 secondary to diabetic kidney disease, unremarkable ultrasound in April of 2018. 2. Lower extremity cellulitis, maintained on antibiotics. 3. Chronic lower extremity edema. Currently maintained on diuretics. I will increase the Lasix to 60 mg p.o. b.i.d., which patient can continue at home. 4. Hypertension. Blood pressure is slightly on the lower side. I agree with holding the losartan if blood pressure systolic is less than 120. 5. Hypervolemic, hyponatremia. 6. Urinary tract infection with urine culture growing Escherichia coli, maintained on antibiotics. PLAN: Increase Lasix to 60 mg p.o. b.i.d. Patient should follow up as outpatient for CKD and volume management. MMODL / IJN: [id number] /
--- NOTE | 2018-07-13 14:57 | P.PN ---
Subjective Progress Note Date: 07/13/18 58 years old female with past medical history of COPD, diabetes mellitus, fibromyalgia, hyperlipidemia, hypertension, osteoarthritis, sleep apnea on CPAP/BiPAP, during her bowel incontinence, recent history of diabetic foot ulcer and osteomyelitis, chronic kidney disease. Patient is wheelchair-bound and bedbound for a few months now as she was told me on her ex- at bedside. Patient presents this time because of uncontrolled sugar. She takes Levemir 70 units twice a day plus NovoLog 20 units 3 times with meals , plus metformin 500 twice a day. She says that usually her sugar is 300-400 range however yesterday was around 500 to hold a and her [id number] who who was taking care of her the whole day she got concerned and sent her to emergency room. However patient denies chest pain or dyspnea. No abdominal pain or nausea vomiting. She is eating well. Patient thought that she has infection in her urine because she sees what she thinks yeast in her urine. She does not have karen dysuria or suprapubic pain or tenderness. Patient Vitas looks stable, he is afebrile. Labs show WBC of 14.3 K. Creatinine 1.23, baseline is 1.2-1.5. Liver enzymes not elevated. Sugar is 330-346. Urinalysis is suspicious for infection. Patient was already started on ceftriaxone and vancomycin in emergency room. 07/13/2018 Patient is seen and evaluated in room at bedside; patient voices no specific complaints Vital signs remained stable with a temperature of 98.2, pulse 80, respiration 20 and blood pressure 107/71 Labs review show white blood count of 10.2, hemoglobin 10.5 and platelet count of 261; BUN of 81 with creatinine of 1.48 which remained slightly elevated above baseline We await final wound culture and possible discharge on oral antibiotics once culture results are available; patient has been seen and evaluated by vascular surgery and is status post debridement with cultures Objective - Vital Signs Vital signs: Vital Signs Temp 98.2 F 07/13/18 07:00 Pulse 80 07/13/18 07:00 Resp 12 07/13/18 07:00 BP 107/71 07/13/18 07:00 Pulse Ox 96 07/13/18 07:00 Intake & Output 07/12/18 07/13/18 07/13/18 18:59 06:59 18:59 Intake Total 1201.765 250 Balance 1201.765 250 Weight 130.181 kg Intake: Intake, IV Titration 111.765 Amount Insulin Regular 100 unit 111.765 In Sodium Chloride 0.9% 100 ml @ Titrate 20 mls/ hr IV .Q5H3M [facility] [place] Rx#: [id number] Oral 1090 250 Other: Voiding Method Toilet Diaper # Voids 4 1 - Exam - Constitutional General appearance: Present: average body habitus, cooperative, no acute distress - EENT Eyes: Present: anicteric sclerae, EOMI, PERRLA, normal appearance ENT: Present: hearing grossly normal, normal oropharynx Ears: bilateral: normal - Neck Neck: Present: normal ROM. Absent: lymphadenopathy, rigidity, thyromegaly Carotids: negative: bruit present Thyroid: bilateral: normal size, negative: enlarged, nodule - Respiratory Respiratory: bilateral: CTA, negative: rales, rhonchi, wheezing - Cardiovascular Rhythm: regular Heart sounds: normal: S1, S2 Abnormal Heart Sounds: Absent: systolic murmur, diastolic murmur - Gastrointestinal General gastrointestinal: Present: normal bowel sounds, soft. Absent: distended, organomegaly, tenderness - Genitourinary Genitourinary Comment(s): deferred - Integumentary Integumentary: Present: normal turgor. Absent: jaundiced, rash, ulcer - Neurologic Neurologic: Present: CNII-XII intact. Absent: focal deficits - Musculoskeletal Musculoskeletal: Present: gait normal, strength equal bilaterally - Psychiatric Psychiatric: Present: A&O x's 3, appropriate affect, intact judgment & insight - Labs CBC & Chem 7: 07/13/18 07:10 07/13/18 07:10 Labs: Abnormal Lab Results - Last 24 Hours (Table) 07/12/18 07/12/18 07/12/18 Range/Units 07:48 07:48 10:26 WBC 11.7 H (3.8-10.6) k/uL RBC 3.54 L (3.80-5.40) m/uL Hgb 10.3 L (11.4-16.0) gm/dL Hct 31.8 L (34.0-46.0) % Neutrophils # 7.9 H (1.3-7.7) k/uL BUN 94 H (7-17) mg/dL Creatinine 1.45 H (0.52-1.04) mg/dL Glucose 159 H (74-99) mg/dL POC Glucose (mg/dL) 223 H (75-99) mg/dL 07/12/18 07/12/18 07/12/18 Range/Units 13:56 14:40 17:00 WBC (3.8-10.6) k/uL RBC (3.80-5.40) m/uL Hgb (11.4-16.0) gm/dL Hct (34.0-46.0) % Neutrophils # (1.3-7.7) k/uL BUN (7-17) mg/dL Creatinine (0.52-1.04) mg/dL Glucose (74-99) mg/dL POC Glucose (mg/dL) 253 H 277 H 217 H (75-99) mg/dL 07/12/18 07/13/18 07/13/18 Range/Units 20:03 02:43 06:54 WBC (3.8-10.6) k/uL RBC (3.80-5.40) m/uL Hgb (11.4-16.0) gm/dL Hct (34.0-46.0) % Neutrophils # (1.3-7.7) k/uL BUN (7-17) mg/dL Creatinine (0.52-1.04) mg/dL Glucose (74-99) mg/dL POC Glucose (mg/dL) 259 H 209 H 220 H (75-99) mg/dL 07/13/18 Range/Units 07:10 WBC (3.8-10.6) k/uL RBC 3.67 L (3.80-5.40) m/uL Hgb 10.5 L (11.4-16.0) gm/dL Hct 33.5 L (34.0-46.0) % Neutrophils # (1.3-7.7) k/uL BUN (7-17) mg/dL Creatinine (0.52-1.04) mg/dL Glucose (74-99) mg/dL POC Glucose (mg/dL) (75-99) mg/dL Microbiology - Last 24 Hours (Table) 07/11/18 16:06 Gram Stain - Preliminary Leg - Left Wound Culture - Preliminary Assessment and Plan Assessment: Bilateral lower extremity cellulitis, more on the left left leg abscess Acute on chronic kidney injury Asymptomatic bacteriuria Uncontrolled hyperglycemia, with resistant hyperglycemia Type 2 diabetes mellitus Diabetic nephropathy, stage III chronic kidney disease Diabetic neuropathy Hypertension Hyperlipidemia COPD, not in acute exacerbation History of osteoarthritis Sleep apnea on CPAP/BiPAP Patient is bedbound Plan: This is a pleasant 58s old female who presents with uncontrolled diabetes and cellulitis and kidney disease. infectious disease consult for antibiotic adjustment. Follow-up urine culture results. We ordered urine culture and blood culture. Increase her insulin dose and follow-up her Accu-Cheks with in sulin sliding scale. Nephrology consult is appreciated. Monitor renal function. Labs and medication were reviewed.. Continue same treatment. Continue with symptomatic treatment. Resume home medication. Monitor lytes and vitals. DVT and GI prophylaxis. Further recommendations of the clinical course of the patient DVT prophylaxis: Subcutaneous heparin GI Prophylaxis: Pepcid Prognosis is guarded Time with Patient: Greater than 30
[2018-07-13 16:55] LABS: Glucose,Whole Blood 167 mg/dL (75-99)
[2018-07-13] MEDS: FUROSEMIDE 20 MG TAB PO SCH (18:35)
[2018-07-13 20:33] LABS: Glucose,Whole Blood 197 mg/dL (75-99)
[2018-07-13] MEDS: ATORVASTATIN 40 MG TAB PO SCH (20:46)
[2018-07-14] MEDS: LEVOTHYROXINE 100 MCG TAB PO SCH (05:39)
[2018-07-14 07:16] LABS: Glucose,Whole Blood 211 mg/dL (75-99)
[2018-07-14 09:13] LABS: Calcium 9.2 mg/dL (8.4-10.2); Potassium 4.8 mmol/L (3.5-5.1)
[2018-07-14 09:17] LABS: Basophils # (A) 0.1 k/uL (0-0.2); Basophils % (A) 1 %; Eosinophils # (A) 0.4 k/uL (0-0.7); Eosinophils % (A) 5 %; HCT 33.4 % (34.0-46.0); HGB 10.4 gm/dL (11.4-16.0); Hypochromasia Slight; Lymphocytes # (A) 2.2 k/uL (1.0-4.8); Lymphocytes % (A) 22 %; MCH 28.5 pg (25.0-35.0); MCHC 31.2 g/dL (31.0-37.0); MCV 91.4 fL (80.0-100.0); Mean Platelet Volume 8.1; Monocytes # (A) 0.4 k/uL (0-1.0); Monocytes % (A) 4 %; Neutrophils # (A) 6.5 k/uL (1.3-7.7); Neutrophils % (A) 66 %; Platelet Count 252 k/uL (150-450); RBC 3.66 m/uL (3.80-5.40); RDW 15.4 % (11.5-15.5); WBC 9.9 k/uL (3.8-10.6)
[2018-07-14] MEDS: INSULIN ASPART (NovoLOG) 100 UNIT/ML VIAL SQ SCH ×4 (10:33→12:33)
[2018-07-14] MEDS: INSULIN DETEMIR (LEVEMIR) 100 UNIT/ML SYR SQ SCH (10:34)
[2018-07-14] MEDS: COLLAGENASE 250 UNIT/GM OINTMENT 30 GM TUBE TOPICAL SCH (10:34)
[2018-07-14] MEDS: LOSARTAN 25 MG TAB PO SCH (10:36)
[2018-07-14] MEDS: CLOPIDOGREL 75 MG TAB PO SCH (10:36)
[2018-07-14] MEDS: FUROSEMIDE 20 MG TAB PO SCH (10:36)
[2018-07-14] MEDS: CEPHALEXIN 500 MG CAP PO SCH (10:36)
[2018-07-14] MEDS: GLIMEPIRIDE 2 MG TAB PO SCH (10:36)
[2018-07-14 11:27] LABS: Glucose,Whole Blood 239 mg/dL (75-99)
--- NOTE | 2018-07-14 11:53 | PN ---
PROGRESS NOTE Patient is seen for followup for acute kidney injury and chronic kidney disease. Her renal function has improved. Serum creatinine is down to 1.3 from 1.48 yesterday. The patient is being diuresed. Her Lasix was increased yesterday to 60 mg twice a day. PHYSICAL EXAMINATION: Patient is comfortable. Blood pressure 134/80, heart rate 80 per minute. She is afebrile. Examination of the heart: S1, S2. Examination of the lungs: Bilateral breath sounds are heard. Abdomen is soft, nontender. Examination of the lower extremities shows chronic skin changes. Edema is noted, 1+ bilaterally. [employer] exam is grossly intact. LABS: Show sodium 139, potassium 4.8, BUN 78, serum creatinine 1.3, hemoglobin 10.4 g/dL. ASSESSMENT: 1. Chronic kidney disease stage III secondary to diabetic kidney disease. 2. Lower extremity cellulitis, maintained on antibiotics. 3. Chronic lower extremity edema. Maintain Lasix at 60 mg p.o. b.i.d. post discharge. 4. Hypertension. Blood pressure had been low and we have parameters for losartan. 5. Hypervolemic, hyponatremia. 6. Urinary tract infection with urine culture growing Escherichia coli, maintained on antibiotics. PLAN: Patient can be discharged on Lasix 60 mg p.o. b.i.d. with followup as outpatient for CKD. MMODL / IJN: [id number] /
--- NOTE | 2018-07-14 11:58 | P.DS ---
Providers Date of admission: 07/03/18 00:30 Expected date of discharge: 07/14/18 Attending physician: Jordan Eason Consults: 07/03/18 12:52 Consult Physician Urgent Consulting Provider: Jak Heller Consult Reason/Comments: kidney failure Do you want consulting provider notified?: Yes Consult Physician Urgent Consulting Provider: Herbie Scruggs Consult Reason/Comments: sepsis, UTI Do you want consulting provider notified?: Yes Primary care physician: Sami Robles [facility] Course: This is a pleasant 58 years old female with past medical history of COPD, diabetes mellitus, fibromyalgia, hyperlipidemia, hypertension, osteoarthritis, sleep apnea on CPAP/BiPAP, during her bowel incontinence, recent history of diabetic foot ulcer and osteomyelitis, chronic kidney disease. Patient is wheelchair-bound and bedbound for a few months now as she was told me on her ex- at bedside. Patient presents this time because of uncontrolled sugar. She takes Levemir 70 units twice a day plus NovoLog 20 units 3 times with meals , plus metformin 500 twice a day. She says that usually her sugar is 300-400 range however yesterday was around 500 to hold a and her [id number] who who was taking care of her the whole day she got concerned and sent her to emergency room. However patient denies chest pain or dyspnea. No abdominal pain or nausea vomiting. She is eating well. Patient thought that she has infection in her urine because she sees what she thinks yeast in her urine. She does not have karen dysuria or suprapubic pain or tenderness. Patient Vitas looks stable, he is afebrile. Labs show WBC of 14.3 K. Creatinine 1.23, baseline is 1.2-1.5. Liver enzymes not elevated. Sugar is 330-346. Urinalysis is suspicious for infection. Patient was already started on ceftriaxone and vancomycin in emergency room. 07/04/2018 Patien fully awake on oriented however she feels sleepy at times as per staff. She is currently on morphine 4 mg every 4 hours. We got her lower that to 2 mg every 8 hours when necessary. She denies chest pain or dyspnea. No abdominal complaints. No urinary symptoms like no dysuria or change in frequency. She complains from burning at her leg sides for the cellulitis are. Docusate already evaluated the patient and change her antibiotics to cefazolin. IV vancomycin which was started in the emergency room was stopped since yesterday. Her creatinine today is slightly worse from 1.3 up to 1.7. Her sugar is not controlled and is in the 350s. We'll increase Levemir to 18 units twice a day, and increase NovoLog from 20 up to 30 units before meals 3 times a day. Continue with insulin sliding scale. Leukocytosis shown some improvement from 14,000-12.6 K. Hemoglobin stable. Low magnesium of 1.1 is being replaced. Liver enzymes not elevated. Nephrology input is appreciated, discontinue Cozaar and monitor creatinine and possible DC metformin if still worsening kidney function 07/05/2018 Patient feels better. She is more awake and alert. She still been on antibiotics for her cellulitis in the lower extremity. Hemodynamically stable. Leukocytosis improving. Creatinine down to 1.6. Nephrology team or infectious disease teams are following the. Sugar was uncontrolled and insulin is increased, keep monitoring sugar. Urine culture showing gram-negative bacilli however patient unlikely has UTI. 07/06/2018 pt is awake and breathing quietly ,is complaining from pain in her left leg. erythemia is improving , changed dressing today. vitals are stable sugar is around 300 . pt creatinine is down to 1.4. increase novolog insulin from 30 to 40 U with meals. infectous disease consult is appreciated. no chest pain or dyspnea , pt with no abd pain . 07/07/2018 Today patient with no chest pain or dyspnea. She has no complaint except from her left leg, although patient still better controlled she has erythema and hardness around her ulcer in the left lower leg. Hemodynamically patient is stable. Sugar is still elevated despite increasing the dose of insulin. Her creatinine is improving down to 1.29. WBC is 11.1 K 07/08/2018 Patient infection and so likely is in the left leg is improving. She is awake and alert. No chest pain or dyspnea. No abdominal pain. Patient was hemodynamically stable. No leukocytosis. Sodium 133. Creatinine 1.1. Sugar still resistant to insulin therapy. We will start the patient on insulin drip today. Nephrology input is appreciated. 07/09/2018 pt has persistant cellulitis and swelling of her left leg, her left leg is warm. today doppler US was negative for DVT, we called vascular surgeon for evaluation her wound and their recommendation is appreciated , please refer to their note for more detail. she is still on antibiotic as per infectious disease who is managing her antibiotic, she is currently on cefazolin . we will order repeat us of the lower ext to rule out abscess . pt remains on insulin drip and despite that she has difficulty controlling her sugar which is still in 200-300s range. nephrology team are following the case as well . we will increase her novolog insulin to 30 U with meal . levemir is on hold for insulin drip 07/10/2018 Patient is still have cellulitis in the lower extremity, discussed the case with infectious disease, when going to do ultra sound of the lower extremity to rule out abscess. Patient antibiotic management as per ID team. Patient does has resistant hyperglycemia, currently she is on insulin drip at 20 units per hour and her sugars is around 270 milligrams per dl. Also we'll do physical therapy and a capacious therapy evaluation. Vascular surgery input is appreciated 07/11/2018 Patient still complaining of from pain and tenderness at her left nova infection and ulcer. Ultrasound showing small abscess about 3.5 X1.5X 0.5 cm. Discussed the case witvascular surger. Zhou currently he will come under evaluated the patient for second debridement. Paidorcas is current insulin drip a is difficult to control, could be related to her infection and abscess in her left leg. Discussed with the staff 07/12/2018 pt today started feeling better , she is status post debridement and I&D of her left leg abscess, her leg looks less inflamed and less swollen . dressing in placed and there is a wick in the wound. pt insulin drip was stopped and she swtiched back to levemir 80 mg and then 90 Units, BID plus novolog and insulin sliding scale, pt still needs monitoring for her blood sugar . also wound culture is pending . pt is on keflex and ID input is appreciated . metformin was refused by the pt for diarrhea. 07/13/2018 Patient is seen and evaluated in room at bedside; patient voices no specific complaints Vital signs remained stable with a temperature of 98.2, pulse 80, respiration 20 and blood pressure 107/71 Labs review show white blood count of 10.2, hemoglobin 10.5 and platelet count of 261; BUN of 81 with creatinine of 1.48 which remained slightly elevated above baseline We await final wound culture and possible discharge on oral antibiotics once culture results are available; patient has been seen and evaluated by vascular surgery and is status post debridement with cultures 07/14/18 wound culture remains negative; patient will be co'ed home on oral antibiotics for UTI and follow up with wound clinic Patient Condition at Discharge: Stable Plan - Discharge Summary Discharge Rx Participant: No New Discharge Prescriptions: New Glimepiride [Amaryl] 2 mg PO AC-BRKFST #30 tab Losartan [Cozaar] 12.5 mg PO DAILY #30 tab Cephalexin [Keflex] 500 mg PO TID #14 cap Furosemide [Lasix] 60 mg PO BID@0900,1600 #60 tab Collagenase [Santyl] 1 applic TOPICAL DAILY #1 applic Continue Clopidogrel [Plavix] 75 mg PO DAILY #90 tab Linagliptin [Tradjenta] 5 mg PO QAM Atorvastatin [Lipitor] 40 mg PO HS Levothyroxine Sodium [Synthroid] 100 mcg PO DAILY Insulin Detemir [Levemir Flextouch] 70 units SQ BID Insulin Aspart [NovoLOG Flexpen] 20 unit SQ AC-TID Varenicline [Chantix Continuing Pack] 1 mg PO BID Discontinued Furosemide [Lasix] 40 mg PO BID@0900,1600 #60 tab Losartan Potassium [Cozaar] 50 mg PO QAM #0 Discharge Medication List Clopidogrel [Plavix] 75 mg PO DAILY #90 tab 04/27/16 [Rx] Linagliptin [Tradjenta] 5 mg PO QAM 11/06/17 [History] Atorvastatin [Lipitor] 40 mg PO HS 12/31/17 [History] Insulin Aspart [NovoLOG Flexpen] 20 unit SQ AC-TID 07/02/18 [History] Insulin Detemir [Levemir Flextouch] 70 units SQ BID 07/02/18 [History] Levothyroxine Sodium [Synthroid] 100 mcg PO DAILY 07/02/18 [History] Varenicline [Chantix Continuing Pack] 1 mg PO BID 07/02/18 [History] Cephalexin [Keflex] 500 mg PO TID #14 cap 07/14/18 [Rx] Collagenase [Santyl] 1 applic TOPICAL DAILY #1 applic 07/14/18 [Rx] Furosemide [Lasix] 60 mg PO BID@0900,1600 #60 tab 07/14/18 [Rx] Glimepiride [Amaryl] 2 mg PO AC-BRKFST #30 tab 07/14/18 [Rx] Losartan [Cozaar] 12.5 mg PO DAILY #30 tab 07/14/18 [Rx] Follow up Appointment(s)/Referral(s): Edgar Gallardo MD [Primary Care Provider] - 07/19/18 1:50 pm Jak Heller DO [STAFF PHYSICIAN] - 07/31/18 11:40 am Herbie Scruggs MD [STAFF PHYSICIAN] - 1 Week Discharge Disposition: HOME WITH HOME HEALTH SERVICES
[2018-07-14 15:09] VITALS: TEMP 98.2
[2018-07-14 15:11] VITALS: BP 130/78; PULSE 98; RESP 12
== END 2018-07-14 15:42 | disposition home health service (06) | DRG 571 ==
LOC: EC 20:13 → 4MS4W 07-03 00:30 → 4SSUR 07-03 14:18
PROVIDERS: ADMIT Hospitalist; ATTEND Hospitalist
PROC: 0JBP0ZZ Excision of Left Lower Leg Subcutaneous Tissue and Fascia, Open Approach (ICD-10-PCS; principal; 2018-07-09)
PROC: 0J9R0ZX Drainage of Left Foot Subcutaneous Tissue and Fascia, Open Approach, Diagnostic (ICD-10-PCS; 2018-07-11)
DX: L03.116 Cellulitis of left lower limb (principal); E11.52 Type 2 diabetes mellitus with diabetic peripheral angiopathy with gangrene; E87.1 Hypo-osmolality and hyponatremia; N17.9 Acute kidney failure, unspecified; N39.0 Urinary tract infection, site not specified; Z68.43 Body mass index [BMI] 50.0-59.9, adult; L03.115 Cellulitis of right lower limb; I70.213 Atherosclerosis of native arteries of extremities with intermittent claudication, bilateral legs; E11.51 Type 2 diabetes mellitus with diabetic peripheral angiopathy without gangrene; E11.65 Type 2 diabetes mellitus with hyperglycemia; I70.245 Atherosclerosis of native arteries of left leg with ulceration of other part of foot; L97.529 Non-pressure chronic ulcer of other part of left foot with unspecified severity; I70.239 Atherosclerosis of native arteries of right leg with ulceration of unspecified site; Z79.4 Long term (current) use of insulin; J44.9 Chronic obstructive pulmonary disease, unspecified; B96.20 Unspecified Escherichia coli [E. coli] as the cause of diseases classified elsewhere; E11.22 Type 2 diabetes mellitus with diabetic chronic kidney disease; E11.40 Type 2 diabetes mellitus with diabetic neuropathy, unspecified; E78.5 Hyperlipidemia, unspecified; E83.42 Hypomagnesemia; T50.2X5A Adverse effect of carbonic-anhydrase inhibitors, benzothiadiazides and other diuretics, initial encounter; E86.9 Volume depletion, unspecified; E87.70 Fluid overload, unspecified; G47.30 Sleep apnea, unspecified; Z99.89 Dependence on other enabling machines and devices; I12.9 Hypertensive chronic kidney disease with stage 1 through stage 4 chronic kidney disease, or unspecified chronic kidney disease; M79.7 Fibromyalgia; N18.3 Chronic kidney disease, stage 3 (moderate); Z74.01 Bed confinement status; Z79.02 Long term (current) use of antithrombotics/antiplatelets; Z79.890 Hormone replacement therapy; Z79.899 Other long term (current) drug therapy; Z80.1 Family history of malignant neoplasm of trachea, bronchus and lung; Z82.49 Family history of ischemic heart disease and other diseases of the circulatory system; Z87.891 Personal history of nicotine dependence; Z89.431 Acquired absence of right foot; Z99.3 Dependence on wheelchair; R32 Unspecified urinary incontinence; R15.9 Full incontinence of feces; M19.90 Unspecified osteoarthritis, unspecified site; H35.30 Unspecified macular degeneration; Z87.01 Personal history of pneumonia (recurrent); E66.9 Obesity, unspecified
CPT/HCPCS: 36415; 80048; 80053; 81001; 82009; 83036; 83735; 85025; 87040; 87070; 87075; 87077; 87086; 87186; 87205; 96361; 96365; 96366; 96375; 96376; 99285

== ENCOUNTER → 2018-07-29 | Outpatient (CLI) | payer MEDICARE, OTHER ==
[2018-07-29 16:14] LABS: HCT 35.1 % (34.0-46.0); HGB 11.3 gm/dL (11.4-16.0); Hypochromasia Slight; MCH 29.8 pg (25.0-35.0); MCHC 32.3 g/dL (31.0-37.0); MCV 92.1 fL (80.0-100.0); Mean Platelet Volume 7.8; Platelet Count 301 k/uL (150-450); RBC 3.81 m/uL (3.80-5.40); RDW 15.5 % (11.5-15.5); WBC 12.4 k/uL (3.8-10.6)
[2018-07-29 23:33] LABS: Parathyroid Hormone Intact 94.2 pg/mL (14.0-72.0)
[2018-07-30 00:24] LABS: Iron Saturation 15.67 (12.00-45.00)
[2018-07-30 00:36] LABS: Vitamin D 25 Hydroxy 5.4 ng/mL (30.0-100.0)
[2018-07-30 00:40] LABS: African American GFR (CKD) 37.3 (60.0-200.0); Albumin 3.7 g/dL (3.80-4.90); Albumin/Globulin Ratio 1.16 (1.60-3.17); Anion Gap 10.1 mmol/L (4.00-12.00); BUN/Creat Ratio 31.18 Ratio (12.00-20.00); Calcium 9.1 mg/dL (8.7-10.3); Carbon Dioxide 22.9 mmol/L (21.6-31.8); Globulin 3.2 g/dL (1.6-3.3); Magnesium 1.6 mg/dL (1.5-2.4); Phosphorus 4.5 mg/dL (2.4-5.1); Potassium 4.5 mmol/L (3.5-5.5); Total Bilirubin 0.3 mg/dL (0.3-1.2); Total Protein 6.9 g/dL (6.2-8.2); Uric Acid 10.4 mg/dL (2.9-7.7)
== END | disposition home or self-care (01) ==
LOC: LABWHC1 15:20
PROVIDERS: ATTEND Nurse Practitioner Family
DX: N17.9 Acute kidney failure, unspecified (principal); N25.81 Secondary hyperparathyroidism of renal origin; E55.9 Vitamin D deficiency, unspecified; M10.9 Gout, unspecified; D64.9 Anemia, unspecified
CPT/HCPCS: 36415; 80053; 82043; 82306; 82570; 82728; 83540; 83550; 83735; 83970; 84100; 84550; 85027

== ENCOUNTER 2021-07-05 14:36 | Inpatient (IN) | payer MEDICARE, OTHER ==
[2021-07-05] MEDS ORDERED: FUROSEMIDE 10 MG/ML 4 ML VIAL IV STA (14:56)
[2021-07-05] MEDS ORDERED: IPRATROPIUM-ALBUTEROL 3 ML NEB INHALATION STA ×2 (14:56→19:01)
[2021-07-05] MEDS ORDERED: NITROGLYCERIN OINT 1 INCH/GM PACKET TOPICAL STA (14:56)
[2021-07-05] MEDS ORDERED: methylPREDNISolone SOD SUCCI 125 MG/2 ML VIAL IV STA (14:56)
--- NOTE | 2021-07-05 14:59 | ED ---
SOB HPI - General Chief Complaint: Shortness of Breath Stated Complaint: Abnormal Labs Time Seen by Provider: 07/05/21 14:36 Source: patient, EMS, RN notes reviewed, old records reviewed Mode of arrival: EMS Limitations: no limitations - History of Present Illness Initial Comments: 61-year-old female sent from [facility] today because of a 40 pound weight gain in the last month who also is had shortness of breath or past 3 days with lower pulse oximetry she was started on oxygen during that time she was brought in because of these signs and symptoms she denies any chest pain she states she's feels somewhat better after oxygen was applied. She denies any fevers chills nausea vomiting sweats. MD Complaint: shortness of breath - Related Data Home Medications Medication Instructions Recorded Confirmed Linagliptin [Tradjenta] 5 mg PO DAILY 11/06/17 07/05/21 Acetaminophen [Tylenol 8 Hour] 650 mg PO Q6H PRN 06/17/21 07/05/21 Albuterol Nebulized [Ventolin 2.5 mg INHALATION RT-Q4H PRN 06/17/21 07/05/21 Nebulized] Atorvastatin Calcium [Lipitor] 10 mg PO HS 06/17/21 07/05/21 Carvedilol [Coreg] 6.25 mg PO BID 06/17/21 07/05/21 Cholecalciferol [Vitamin D3 (25 50 mcg PO DAILY 06/17/21 07/05/21 Mcg = 1000 Iu)] DULoxetine HCL [Cymbalta] 30 mg PO DAILY 06/17/21 07/05/21 Levothyroxine Sodium [Synthroid] 175 mcg PO DAILY@0500 06/17/21 07/05/21 Pantoprazole [Protonix] 40 mg PO DAILY@0500 06/17/21 07/05/21 Insulin Detemir (Levemir) [Levemir] 20 unit SQ HS 07/05/21 07/05/21 Sodium Bicarbonate 650 mg PO Q6H 07/05/21 07/05/21 guaiFENesin [Mucinex] 600 mg PO Q12H PRN 07/05/21 07/05/21 Previous Rx's Medication Instructions Recorded Clopidogrel [Plavix] 75 mg PO DAILY #90 tab 04/27/16 Ferrous Sulfate [Iron (65 MG 325 mg PO BID #0 06/24/21 Elemental)] Furosemide [Lasix] 20 mg PO DAILY tab 06/24/21 hydrALAZINE HCL [Apresoline] 10 mg PO BID tab 06/24/21 lisinopriL [Zestril] 5 mg PO DAILY tab 06/24/21 Allergies Allergy/AdvReac Type Severity Reaction Status Date / Time No Known Allergies Allergy Verified 07/05/21 16:26 Review of Systems ROS Statement: Those systems with pertinent positive or pertinent negative responses have been documented in the HPI. ROS Other: All systems not noted in ROS Statement are negative. Past Medical History Past Medical History: COPD, Diabetes Mellitus, Eye Disorder, Fibromyalgia, Hyperlipidemia, Hypertension, Musculoskeletal Disorder, Neurologic Disorder, Osteoarthritis (OA), Pneumonia, Skin Disorder, Sleep Apnea/CPAP/BIPAP, Thyroid Disorder, Vascular Disorder Additional Past Medical History / Comment(s): IDDM type II, diabetic neuropathy hands and feet bilaterally, States she thinks she has Sleep Apnea., bilateral carpal tunnel, vertigo, slight [place] , macular degeneration , hx. bronchitis, & pneumonia., sinus problems, Incontinent bowel and bladder., states scabs on upper arms. , SFA disease, wound on right foot- states no wt bearing- using wheel chair; Flu-ICU admission History of Any Multi-Drug Resistant Organisms: None Reported Past Surgical History: No Surgical Hx Reported Additional Past Surgical History / Comment(s): Colonoscopy, PICC line, Angiogram with Arthrectomy and Femoral stent (2017)rt.3rd & 4th toe amputation 2018 Past Anesthesia/Blood Transfusion Reactions: No Reported Reaction Past Psychological History: No Psychological Hx Reported Smoking Status: Former smoker Past Alcohol Use History: None Reported Past Drug Use History: None Reported - Past Family History Mother Family Medical History: Cancer Additional Family Medical History / Comment(s): Mother at 69yrs of age of lung cancer. Father Family Medical History: Cancer Additional Family Medical History / Comment(s): Father at 60 yrs of age of mesothelioma. Brother(s) Family Medical History: Coronary Artery Disease (CAD) Sister(s) Family Medical History: Hypertension Daughter(s) Family Medical History: No Reported History Son(s) Family Medical History: No Reported History General Exam - General Exam Comments Initial Comments: This is a well-developed well-nourished awake alert oriented 3 female she is demonstrating some tachypnea. Limitations: no limitations General appearance: alert, anxious Head exam: Present: atraumatic, normocephalic, normal inspection Eye exam: Present: normal appearance, PERRL, EOMI. Absent: scleral icterus, conjunctival injection, periorbital swelling ENT exam: Present: normal exam, mucous membranes moist Neck exam: Present: normal inspection, full ROM, other. Absent: tenderness, meningismus, lymphadenopathy Respiratory exam: Present: rales, decreased breath sounds (No stridor JVD or bruits). Absent: respiratory distress, wheezes, rhonchi, stridor Cardiovascular Exam: Present: regular rate, normal rhythm, normal heart sounds. Absent: systolic murmur, diastolic murmur, rubs, gallop, clicks GI/Abdominal exam: Present: soft, normal bowel sounds. Absent: distended, tenderness, guarding, rebound, rigid, bruit, pulsatile mass Extremities exam: Present: full ROM, normal capillary refill, pedal edema. Absent: tenderness, joint swelling, calf tenderness Back exam: Present: normal inspection Neurological exam: Present: alert, oriented X3, CN II-XII intact Psychiatric exam: Present: normal affect, normal mood Skin exam: Present: warm, dry, intact, normal color. Absent: rash Course Vital Signs 07/05/21 07/05/21 07/05/21 14:39 17:02 17:12 Temperature 97.1 F L Pulse Rate 76 74 76 Respiratory 20 Rate Blood Pressure 185/89 O2 Sat by Pulse 98 Oximetry 07/05/21 17:21 Temperature Pulse Rate 78 Respiratory 20 Rate Blood Pressure 176/81 O2 Sat by Pulse 98 Oximetry - Reevaluation(s) Reevaluation #1: 07/05/21 18:45 Reevaluation patient reveals him prune aeration she does feel better. Medical Decision Making - Medical Decision Making Did discuss findings with the patient also with Maria G from [facility] covering for Dr. Estrada the patient be admitted consultation by nephrology pulmonary and cardiology. - Lab Data Result diagrams: 07/05/21 15:05 07/05/21 15:05 Lab Results 07/05/21 07/05/21 07/05/21 Range/Units 15:05 15:05 15:05 WBC 8.5 (3.8-10.6) k/uL RBC 2.86 L (3.80-5.40) m/uL Hgb 8.2 L (11.4-16.0) gm/dL Hct 27.1 L (34.0-46.0) % MCV 94.9 (80.0-100.0) fL MCH 28.7 (25.0-35.0) pg MCHC 30.2 L (31.0-37.0) g/dL RDW 15.7 H (11.5-15.5) % Plt Count 229 (150-450) k/uL MPV 8.1 Neutrophils % 82 % Lymphocytes % 10 % Monocytes % 4 % Eosinophils % 2 % Basophils % 1 % Neutrophils # 6.9 (1.3-7.7) k/uL Lymphocytes # 0.9 L (1.0-4.8) k/uL Monocytes # 0.3 (0-1.0) k/uL Eosinophils # 0.2 (0-0.7) k/uL Basophils # 0.1 (0-0.2) k/uL Hypochromasia Marked PT 10.1 (9.0-12.0) sec INR 0.9 (<1.2) APTT 21.4 L (22.0-30.0) sec Sodium 137 (137-145) mmol/L Potassium 5.0 (3.5-5.1) mmol/L Chloride 107 (98-107) mmol/L Carbon Dioxide 24 (22-30) mmol/L Anion Gap 6 mmol/L BUN 60 H (7-17) mg/dL Creatinine 2.17 H (0.52-1.04) mg/dL Est GFR (CKD-EPI)AfAm 27 (>60 ml/min/1.73 sqM) Est GFR (CKD-EPI)NonAf 24 (>60 ml/min/1.73 sqM) Glucose 274 H (74-99) mg/dL Plasma Lactic Acid Madhu (0.7-2.0) mmol/L Calcium 8.2 L (8.4-10.2) mg/dL Magnesium 1.7 (1.6-2.3) mg/dL Total Bilirubin 0.3 (0.2-1.3) mg/dL AST 20 (14-36) U/L ALT 17 (4-34) U/L Alkaline Phosphatase 117 (38-126) U/L Troponin I (0.000-0.034) ng/mL NT-Pro-B Natriuret Pep pg/mL Total Protein 5.9 L (6.3-8.2) g/dL Albumin 2.8 L (3.5-5.0) g/dL 07/05/21 07/05/21 07/05/21 Range/Units 15:05 15:05 15:05 WBC (3.8-10.6) k/uL RBC (3.80-5.40) m/uL Hgb (11.4-16.0) gm/dL Hct (34.0-46.0) % MCV (80.0-100.0) fL MCH (25.0-35.0) pg MCHC (31.0-37.0) g/dL RDW (11.5-15.5) % Plt Count (150-450) k/uL MPV Neutrophils % % Lymphocytes % % Monocytes % % Eosinophils % % Basophils % % Neutrophils # (1.3-7.7) k/uL Lymphocytes # (1.0-4.8) k/uL Monocytes # (0-1.0) k/uL Eosinophils # (0-0.7) k/uL Basophils # (0-0.2) k/uL Hypochromasia PT (9.0-12.0) sec INR (<1.2) APTT (22.0-30.0) sec Sodium (137-145) mmol/L Potassium (3.5-5.1) mmol/L Chloride (98-107) mmol/L Carbon Dioxide (22-30) mmol/L Anion Gap mmol/L BUN (7-17) mg/dL Creatinine (0.52-1.04) mg/dL Est GFR (CKD-EPI)AfAm (>60 ml/min/1.73 sqM) Est GFR (CKD-EPI)NonAf (>60 ml/min/1.73 sqM) Glucose (74-99) mg/dL Plasma Lactic Acid Madhu 0.5 L (0.7-2.0) mmol/L Calcium (8.4-10.2) mg/dL Magnesium (1.6-2.3) mg/dL Total Bilirubin (0.2-1.3) mg/dL AST (14-36) U/L ALT (4-34) U/L Alkaline Phosphatase (38-126) U/L Troponin I 0.022 (0.000-0.034) ng/mL NT-Pro-B Natriuret Pep 90278 pg/mL Total Protein (6.3-8.2) g/dL Albumin (3.5-5.0) g/dL - EKG Data -: EKG Interpreted by Me EKG Comments: EKG shows sinus rhythm a 75. Interval 162 QRS duration 113 QT since QTC 376/406 poor R-wave progression no acute ST-T wave changes some artifact present - Radiology Data Radiology results: report reviewed (Imaging reviewed evidence of increased pulmonary vascular markings consistent with congestive heart failure.), image r eviewed Critical Care Time Critical Care Time: Yes Total Critical Care Time: 39 Critical Care Time: Critical care time includes initial presentation with history physical labs x- rays review of old charting was available multiple reevaluation the patient discussed with paramedics upon arrival to this with the admitting physician admission orders and documentation of the above Disposition Clinical Impression: Congestive heart failure, Chronic renal insufficiency, Acute exacerbation of chronic obstructive pulmonary disease, Chronic anemia Disposition: ADMITTED IP TO THIS HOSP Condition: Fair Is patient prescribed a controlled substance at d/c from ED?: No Referrals: Eugene Sanchez DO [Primary Care Provider] - 1-2 days
[2021-07-05 15:36] LABS: Basophils # (A) 0.1 k/uL (0-0.2); Basophils % (A) 1 %; Eosinophils # (A) 0.2 k/uL (0-0.7); Eosinophils % (A) 2 %; HCT 27.1 % (34.0-46.0); HGB 8.2 gm/dL (11.4-16.0); Hypochromasia Marked; Lymphocytes # (A) 0.9 k/uL (1.0-4.8); Lymphocytes % (A) 10 %; MCH 28.7 pg (25.0-35.0); MCHC 30.2 g/dL (31.0-37.0); MCV 94.9 fL (80.0-100.0); Mean Platelet Volume 8.1; Monocytes # (A) 0.3 k/uL (0-1.0); Monocytes % (A) 4 %; Neutrophils # (A) 6.9 k/uL (1.3-7.7); Neutrophils % (A) 82 %; Platelet Count 229 k/uL (150-450); RBC 2.86 m/uL (3.80-5.40); RDW 15.7 % (11.5-15.5); WBC 8.5 k/uL (3.8-10.6)
[2021-07-05 15:46] LABS: INR 0.9 (<1.2); Prothrombin Time 10.1 sec (9.0-12.0)
[2021-07-05 15:49] LABS: Albumin 2.8 g/dL (3.5-5.0); Calcium 8.2 mg/dL (8.4-10.2); Magnesium 1.7 mg/dL (1.6-2.3); Total Bilirubin 0.3 mg/dL (0.2-1.3); Total Protein 5.9 g/dL (6.3-8.2)
[2021-07-05 15:51] LABS: Partial Thromboplastin Time 21.4 sec (22.0-30.0)
[2021-07-05] MEDS ORDERED: ACETAMINOPHEN TAB 325 MG TAB PO PRN (22:23)
[2021-07-05] MEDS: NITROGLYCERIN OINT 1 INCH/GM PACKET TOPICAL SCH (23:31)
[2021-07-05] MEDS: FUROSEMIDE 10 MG/ML 4 ML VIAL IV SCH (23:31)
[2021-07-05] MEDS: IPRATROPIUM-ALBUTEROL 3 ML NEB INHALATION SCH (23:45)
[2021-07-06] MEDS: IPRATROPIUM-ALBUTEROL 3 ML NEB INHALATION SCH ×6 (04:17→21:11)
[2021-07-06] MEDS: FUROSEMIDE 10 MG/ML 4 ML VIAL IV SCH ×3 (08:45→23:46)
[2021-07-06 10:00] LABS: Calcium 8.6 mg/dL (8.4-10.2); Magnesium 1.8 mg/dL (1.6-2.3); Potassium 4.9 mmol/L (3.5-5.1)
[2021-07-06] MEDS: NITROGLYCERIN OINT 1 INCH/GM PACKET TOPICAL SCH ×4 (10:14→21:36)
--- NOTE | 2021-07-06 10:34 | P.NPCON ---
History of Present Illness - Reason for Consult chronic renal failure - History of Present Illness Reason for consultation: Chronic kidney disease History of present illness: Patient is a 61-year-old female seen in renal consultation for chronic kidney disease. Patient was seen and examined in the emergency room. Patient has chronic kidney disease stage IV with baseline creatinine in the range of 2-2.3 secondary to diabetic kidney disease. Creatinine on admission was 2.17 and is 2.32 today. Patient presents from extended care facility with worsening shortness of breath and edema. Patient was noted to be hypoxic and was subsequently sent to the hospital. She is currently on 3 L is a cannula. She is receiving IV Lasix 40 mg 3 times daily. Admits to good urine output. Patient is not a very reliable historian. She denies drinking excessive amounts of fluid or eating salty foods. Denies hematuria. No vomiting or diarrhea. I don't see any nonsteroidals in her home medication list. She does have history of diabetes. No fever or chills. No cough. Vital signs are stable. General: Awake and alert. No acute distress. HEENT: Head exam is unremarkable. On nasal cannula. LUNGS: Breath sounds decreased. HEART: Rate and Rhythm are regular. ABDOMEN: Soft, obese. EXTREMITITES: 1+ edema. Lower extremity is wrapped. Past Medical History Past Medical History: COPD, Diabetes Mellitus, Eye Disorder, Fibromyalgia, Hyperlipidemia, Hypertension, Musculoskeletal Disorder, Neurologic Disorder, Osteoarthritis (OA), Pneumonia, Skin Disorder, Sleep Apnea/CPAP/BIPAP, Thyroid Disorder, Vascular Disorder Additional Past Medical History / Comment(s): IDDM type II, diabetic neuropathy hands and feet bilaterally, States she thinks she has Sleep Apnea., bilateral carpal tunnel, vertigo, slight [place] , macular degeneration , hx. bronchitis, & pneumonia., sinus problems, Incontinent bowel and bladder., states scabs on upper arms. , SFA disease, wound on right foot- states no wt bearing- using wheel chair; Flu-ICU admission History of Any Multi-Drug Resistant Organisms: None Reported Past Surgical History: No Surgical Hx Reported Additional Past Surgical History / Comment(s): Colonoscopy, PICC line, Angiogram with Arthrectomy and Femoral stent (2017)rt.3rd & 4th toe amputation 2018 Past Anesthesia/Blood Transfusion Reactions: No Reported Reaction Past Psychological History: No Psychological Hx Reported Smoking Status: Former smoker Past Alcohol Use History: None Reported Past Drug Use History: None Reported - Past Family History Mother Family Medical History: Cancer Additional Family Medical History / Comment(s): Mother at 69yrs of age of lung cancer. Father Family Medical History: Cancer Additional Family Medical History / Comment(s): Father at 60 yrs of age of mesothelioma. Brother(s) Family Medical History: Coronary Artery Disease (CAD) Sister(s) Family Medical History: Hypertension Daughter(s) Family Medical History: No Reported History Son(s) Family Medical History: No Reported History Medications and Allergies Home Medications Medication Instructions Recorded Confirmed Type Clopidogrel [Plavix] 75 mg PO DAILY #90 tab 04/27/16 07/05/21 Rx Linagliptin [Tradjenta] 5 mg PO DAILY 11/06/17 07/05/21 History Acetaminophen [Tylenol 8 Hour] 650 mg PO Q6H PRN 06/17/21 07/05/21 History Albuterol Nebulized [Ventolin 2.5 mg INHALATION RT-Q4H PRN 06/17/21 07/05/21 History Nebulized] Atorvastatin Calcium [Lipitor] 10 mg PO HS 06/17/21 07/05/21 History Carvedilol [Coreg] 6.25 mg PO BID 06/17/21 07/05/21 History Cholecalciferol [Vitamin D3 (25 50 mcg PO DAILY 06/17/21 07/05/21 History Mcg = 1000 Iu)] DULoxetine HCL [Cymbalta] 30 mg PO DAILY 06/17/21 07/05/21 History Levothyroxine Sodium [Synthroid] 175 mcg PO DAILY@0 06/17/21 07/05/21 History Pantoprazole [Protonix] 40 mg PO DAILY@0500 06/17/21 07/05/21 History Ferrous Sulfate [Iron (65 MG 325 mg PO BID #0 06/24/21 07/05/21 Rx Elemental)] Furosemide [Lasix] 20 mg PO DAILY tab 06/24/21 07/05/21 Rx hydrALAZINE HCL [Apresoline] 10 mg PO BID tab 06/24/21 07/05/21 Rx lisinopriL [Zestril] 5 mg PO DAILY tab 06/24/21 07/05/21 Rx Insulin Detemir (Levemir) [Levemir] 20 unit SQ HS 07/05/21 07/05/21 History Sodium Bicarbonate 650 mg PO Q6H 07/05/21 07/05/21 History guaiFENesin [Mucinex] 600 mg PO Q12H PRN 07/05/21 07/05/21 History Allergies Allergy/AdvReac Type Severity Reaction Status Date / Time No Known Allergies Allergy Verified 07/05/21 16:26 Physical Exam Vitals: Vital Signs Temp Pulse Resp BP Pulse Ox 07/06/21 07:34 84 07/06/21 07:25 84 100 07/06/21 04:48 97.9 F 86 18 173/82 99 07/06/21 04:27 87 07/06/21 04:17 83 07/05/21 23:55 84 07/05/21 23:46 85 07/05/21 23:28 81 16 135/82 99 07/05/21 20:30 83 07/05/21 20:25 82 07/05/21 17:21 78 20 176/81 98 07/05/21 17:12 76 07/05/21 17:02 74 07/05/21 14:39 97.1 F L 76 20 185/89 98 Intake and Output 07/05/21 07/06/21 07/06/21 22:59 06:59 14:59 Output Total 700 Balance -700 Output: Urine 700 Straight 700 Results - Lab Results Most recent lab results Calcium 8.6 mg/dL (8.4-10.2) 07/06/21 09:20 Magnesium 1.8 mg/dL (1.6-2.3) 07/06/21 09:20 07/05/21 15:05 07/06/21 09:20 Assessment and Plan Plan: Assessment: 1. Chronic kidney disease stage IV secondary to diabetic kidney disease with baseline creatinine the range of 2-2.3. Ultrasound from June 2021 showed no evidence of hydronephrosis. 2. Volume overload. 3. Acute hypoxic respiratory failure. 4. Diabetes mellitus. 5. Hypertension with chronic any disease. 6. Anemia of chronic kidney disease. 7. Acute on chronic diastolic CHF. Plan: Maintain IV Lasix. 1200 mL fluid resection. Low-salt diet. Daily weights. Check iron studies. Continue to monitor renal function and urine output. Home antihypertensives resumed. Thank you for the consultation. I will continue to follow the patient with you during her hospital stay.
[2021-07-06] MEDS: hydrALAZINE HCL 50 MG TAB PO SCH ×3 (10:50→23:46)
[2021-07-06] MEDS ORDERED: guaiFENesin 600 MG TABLET.ER PO PRN (12:34)
--- NOTE | 2021-07-06 12:38 | P.HPIM ---
History of Present Illness 61-year-old female, history of COPD, diabetes mellitus, hypertension, hyperlipidemia, hypothyroidism, presents because of dyspnea Patient is awake and alert but somewhat confused, she thinks she is in [facility], she knew it is 2021 but thought it is July and she could not tell the day, but she knew the president. She needs to remind her with some inflammation. She came from retirement. She is poor historian and information were obtained also from staff records. From [facility], pt had COPD and CHF exacerbation 1 month ago. Pt has gained 40lbs since discharge. Pt also states that she has been short of breath x 3 days. Pt was placed on 2 L 2 days ago for SOB. Pt sp02 was 92% on EMS arrival. She's been complaining of from dyspnea but no chest pain with little cough with no phlegm. She denies diarrhea or vomiting. She complains from some dysuria. Her vitals are stable and she is saturating 93% on 3 L oxygen via nasal cannula. hemoglobin of 8.2, wbc of 8.5, platelet count normal. inr 0.9, creatinine is 2.1, compared to baseline of 2.0-2.3. Serial troponin are negative at 0.02 and 0.019. ProBNP is slightly increased 8290 up to 11,200 his x-ray showing COPD, mild cardiomegaly and possible some mild congestion when reviewed by me. EKG showing normal sinus rhythm at [address]-T changes. In ED patient received IV Lasix and Solu-Medrol Review of Systems Review of systems CONSTITUTIONAL: No fever, no malaise, no fatigue. HEENT: No recent visual problems or hearing problems. Denied any sore throat. CARDIOVASCULAR: No orthopnea, PND, no palpitations, no syncope. PULMONARY: No shortness chest wall tenderness, no hemoptysis. GASTROINTESTINAL: No diarrhea, no nausea, no vomiting, no abdominal pain. Normoactive bowel sounds. NEUROLOGICAL: No headaches, no weakness, no numbness. HEMATOLOGICAL: Denies any bleeding or petechiae. GENITOURINARY: Denies any burning micturition, frequency, or urgency. MUSCULOSKELETAL/RHEUMATOLOGICAL: Denies any joint pain, swelling, or any muscle pain. ENDOCRINE: Denies any polyuria or polydipsia. Past Medical History Past Medical History: COPD, Diabetes Mellitus, Eye Disorder, Fibromyalgia, Hyperlipidemia, Hypertension, Musculoskeletal Disorder, Neurologic Disorder, Osteoarthritis (OA), Pneumonia, Skin Disorder, Sleep Apnea/CPAP/BIPAP, Thyroid Disorder, Vascular Disorder Additional Past Medical History / Comment(s): IDDM type II, diabetic neuropathy hands and feet bilaterally, States she thinks she has Sleep Apnea., bilateral carpal tunnel, vertigo, slight [place] , macular degeneration , hx. bronchitis, & pneumonia., sinus problems, Incontinent bowel and bladder., states scabs on upper arms. , SFA disease, wound on right foot- states no wt bearing- using wheel chair; Flu-ICU admission History of Any Multi-Drug Resistant Organisms: None Reported Past Surgical History: No Surgical Hx Reported Additional Past Surgical History / Comment(s): Colonoscopy, PICC line, Angiogram with Arthrectomy and Femoral stent (2017)rt.3rd & 4th toe amputation 2018 Past Anesthesia/Blood Transfusion Reactions: No Reported Reaction Past Psychological History: No Psychological Hx Reported Smoking Status: Former smoker Past Alcohol Use History: None Reported Past Drug Use History: None Reported - Past Family History Mother Family Medical History: Cancer Additional Family Medical History / Comment(s): Mother at 69yrs of age of lung cancer. Father Family Medical History: Cancer Additional Family Medical History / Comment(s): Father at 60 yrs of age of mesothelioma. Brother(s) Family Medical History: Coronary Artery Disease (CAD) Sister(s) Family Medical History: Hypertension Daughter(s) Family Medical History: No Reported History Son(s) Family Medical History: No Reported History Medications and Allergies Home Medications Medication Instructions Recorded Confirmed Type Clopidogrel [Plavix] 75 mg PO DAILY #90 tab 04/27/16 07/05/21 Rx Linagliptin [Tradjenta] 5 mg PO DAILY 11/06/17 07/05/21 History Acetaminophen [Tylenol 8 Hour] 650 mg PO Q6H PRN 06/17/21 07/05/21 History Albuterol Nebulized [Ventolin 2.5 mg INHALATION RT-Q4H PRN 06/17/21 07/05/21 History Nebulized] Atorvastatin Calcium [Lipitor] 10 mg PO HS 06/17/21 07/05/21 History Carvedilol [Coreg] 6.25 mg PO BID 06/17/21 07/05/21 History Cholecalciferol [Vitamin D3 (25 50 mcg PO DAILY 06/17/21 07/05/21 History Mcg = 1000 Iu)] DULoxetine HCL [Cymbalta] 30 mg PO DAILY 06/17/21 07/05/21 History Levothyroxine Sodium [Synthroid] 175 mcg PO DAILY@0500 06/17/21 07/05/21 History Pantoprazole [Protonix] 40 mg PO DAILY@0500 06/17/21 07/05/21 History Ferrous Sulfate [Iron (65 MG 325 mg PO BID #0 06/24/21 07/05/21 Rx Elemental)] Furosemide [Lasix] 20 mg PO DAILY tab 06/24/21 07/05/21 Rx hydrALAZINE HCL [Apresoline] 10 mg PO BID tab 06/24/21 07/05/21 Rx lisinopriL [Zestril] 5 mg PO DAILY tab 06/24/21 07/05/21 Rx Insulin Detemir (Levemir) [Levemir] 20 unit SQ HS 07/05/21 07/05/21 History Sodium Bicarbonate 650 mg PO Q6H 07/05/21 07/05/21 History guaiFENesin [Mucinex] 600 mg PO Q12H PRN 07/05/21 07/05/21 History Allergies Allergy/AdvReac Type Severity Reaction Status Date / Time No Known Allergies Allergy Verified 07/05/21 16:26 Physical Exam Vitals: Vital Signs Temp Pulse Resp BP Pulse Ox 07/06/21 07:34 84 07/06/21 07:25 84 100 07/06/21 04:48 97.9 F 86 18 173/82 99 07/06/21 04:27 87 07/06/21 04:17 83 07/05/21 23:55 84 07/05/21 23:46 85 07/05/21 23:28 81 16 135/82 99 07/05/21 20:30 83 07/05/21 20:25 82 07/05/21 17:21 78 20 176/81 98 07/05/21 17:12 76 07/05/21 17:02 74 07/05/21 14:39 97.1 F L 76 20 185/89 98 Intake and Output 07/05/21 07/06/21 07/06/21 22:59 06:59 14:59 Output Total 700 Balance -700 Output: Urine 700 Straight 700 GENERAL: The patient is alert and oriented x3, not in any acute distress. Well developed, well nourished. HEENT: Pupils are round and equally reacting to light. EOMI. No scleral icterus. No conjunctival pallor. Normocephalic, atraumatic. No pharyngeal erythema. No thyromegaly. CARDIOVASCULAR: S1 and S2 present. No murmurs, rubs, or gallops. -PULMONARY: Chest is clear to auscultation, no wheezing. Mild Bilateral basal crepitation, but has decreased air entry on both sides ABDOMEN: Soft, nontender, nondistended, normoactive bowel sounds. No palpable organomegaly. MUSCULOSKELETAL: No joint swelling or deformity. -EXTREMITIES: No cyanosis, clubbing,. Bilateral pitting leg edema, 2+ NEUROLOGICAL: Gross neurological examination did not reveal any focal deficits. SKIN: No rashes. no petechiae. Results CBC & Chem 7: 07/05/21 15:05 07/06/21 09:20 Labs: Abnormal Lab Results - Last 24 Hours (Table) 07/05/21 07/05/21 07/05/21 Range/Units 15:05 15:05 15:05 RBC 2.86 L (3.80-5.40) m/uL Hgb 8.2 L (11.4-16.0) gm/dL Hct 27.1 L (34.0-46.0) % MCHC 30.2 L (31.0-37.0) g/dL RDW 15.7 H (11.5-15.5) % Lymphocytes # 0.9 L (1.0-4.8) k/uL APTT 21.4 L (22.0-30.0) sec BUN 60 H (7-17) mg/dL Creatinine 2.17 H (0.52-1.04) mg/dL Glucose 274 H (74-99) mg/dL Plasma Lactic Acid Madhu (0.7-2.0) mmol/L Calcium 8.2 L (8.4-10.2) mg/dL Total Protein 5.9 L (6.3-8.2) g/dL Albumin 2.8 L (3.5-5.0) g/dL 05/24/22 Range/Units 15:05 RBC (3.80-5.40) m/uL Hgb (11.4-16.0) gm/dL Hct (34.0-46.0) % MCHC (31.0-37.0) g/dL RDW (11.5-15.5) % Lymphocytes # (1.0-4.8) k/uL APTT (22.0-30.0) sec BUN (7-17) mg/dL Creatinine (0.52-1.04) mg/dL Glucose (74-99) mg/dL Plasma Lactic Acid Madhu 0.5 L (0.7-2.0) mmol/L Calcium (8.4-10.2) mg/dL Total Protein (6.3-8.2) g/dL Albumin (3.5-5.0) g/dL Assessment and Plan Assessment: Metabolic encephalopathy Acute COPD exacerbation Mild Acute CHF exacerbation Dysuria, rule out urinary tract infection Chronic kidney disease, stage IV. Hyperlipidemia Hypertension Hypothyroidism Chronic leukocytosis Morbid obesity, BMI 46.8 Plan: This is a pleasant 61 years old female who presents with COPD and CHF continue with Solu-Medrol, recent treatment bronchodilator Continue with IV Lasix Check urinalysis and bladder scan Monitor creatinine and input and output. Follow-up consult The Case, Cardiology, Nephrology and Pulmonology There were large her Levemir 20 units down to 10 units for now, continue with insulin sliding scale Labs and medication were reviewed.. Continue same treatment. Continue with symptomatic treatment. Resume home medication. Monitor lytes and vitals. DVT and GI prophylaxis. Further recommendations as per clinical course of the patie nt DVT prophylaxis: Subcutaneous heparin GI Prophylaxis: Ppi Prognosis is guarded
[2021-07-06] MEDS: DULoxetine HCL 30 MG CAPSULE.DR PO SCH (13:51)
--- NOTE | 2021-07-06 14:16 | XR ---
EXAMINATION TYPE: XR chest 2V DATE OF EXAM: 07/05/2021 COMPARISON: 06/22/2021 HISTORY: 61 year-old female shortness of breath, difficulty breathing TECHNIQUE: Frontal and lateral views FINDINGS: Heart is enlarged. Hyperinflation. Diffuse interstitial opacities have increased. Mild patchy bibasil ar opacities. Clyde B lines are noted. No sizable pleural effusion. IMPRESSION: Cardiomegaly and COPD. Superimposed interstitial opacities and Clyde B lines. Correlate for CHF with early interstitial pulmonary edema.
--- NOTE | 2021-07-06 15:38 | P.CNPUL ---
History of Present Illness Consult date: 07/06/21 Reason for consult: dyspnea, COPD, hypoxemia Chief complaint: Shortness of breath, lower extremity swelling History of present illness: This is a 61-year-old female patient with multiple chronic medical conditions including severe COPD, and her last PFT from 2018 showed FEV1 of 0.76 or 31% of predicted, with FVC of 36% of predicted, and severe diffusion abnormality, patient is a former smoker, quit smoking a year ago, but does carry a [id number] smoking history, she states she is not oxygen dependent at baseline, she also has history of chronic CHF, obstructive sleep apnea syndrome, morbid obesity, diabetes mellitus type 2 with diabetic neuropathy, chronic kidney disease, hypertension, hyperlipidemia, peripheral vascular disease with previous intervention, and toes amputated, and history of wounds on the right lower extremity. Patient used to follow with Dr. Haung in the pulmonary office, however has not been back to see him since 2018. On 07/05/2021 patient came into the ER for evaluation of 40 pound weight gain, increased lower extremity edema and worsening shortness of breath for the past 3 days. Patient is a resident of a local [facility]. She was started on oxygen there. She denied any fever or chills, no cough, no phlegm production, no hemoptysis, no complaints of chest discomfort. Chest x-ray in emergency department showed cardiomegaly with COPD, diffuse interstitial opacities, mild patchy bibasilar opacities, curly B-lines, no sizable pleural effusion. Vital signs have been stable, patient is satting 98% on 3 L, lab work showed normal white count of 8.5, hemoglobin of 8.2, platelet count of 229, INR of 0.9, electrolytes within normal limits, BUN of 60 creatinine of 2.17, lactic acid 0.5, troponin I 0.022, 0.020, and 0.019, proBNP is 11,002 100. LFTs were within normal limits. Patient was started on IV diuretics, breathing treatments, she was given one-time dose of IV Solu-Medrol. Nephrology and cardiology are on board. And we were consulted for acute exacerbation of COPD related to acute exacerbation of CHF Review of Systems All systems: negative Constitutional: Denies chills, Denies fever Eyes: denies blurred vision, denies pain Ears, nose, mouth and throat: Denies headache, Denies sore throat Cardiovascular: Denies chest pain, Denies shortness of breath Respiratory: Reports dyspnea, Denies cough Gastrointestinal: Denies abdominal pain, Denies diarrhea, Denies nausea, Denies vomiting Genitourinary: Denies dysuria, Denies hematuria Musculoskeletal: Denies myalgias Integumentary: Denies pruritus, Denies rash Neurological: Denies numbness, Denies weakness Psychiatric: Denies anxiety, Denies depression Endocrine: Denies fatigue, Denies weight change Past Medical History Past Medical History: COPD, Diabetes Mellitus, Eye Disorder, Fibromyalgia, Hyperlipidemia, Hypertension, Musculoskeletal Disorder, Neurologic Disorder, Osteoarthritis (OA), Pneumonia, Skin Disorder, Sleep Apnea/CPAP/BIPAP, Thyroid Disorder, Vascular Disorder Additional Past Medical History / Comment(s): IDDM type II, diabetic neuropathy hands and feet bilaterally, States she thinks she has Sleep Apnea., bilateral carpal tunnel, vertigo, slight [place] , macular degeneration , hx. bronchitis, & pneumonia., sinus problems, Incontinent bowel and bladder., states scabs on upper arms. , SFA disease, wound on right foot- states no wt bearing- using wheel chair; Flu-ICU admission History of Any Multi-Drug Resistant Organisms: None Reported Past Surgical History: No Surgical Hx Reported Additional Past Surgical History / Comment(s): Colonoscopy, PICC line, Angiogram with Arthrectomy and Femoral stent (2017)rt.3rd & 4th toe amputation 2018 Past Anesthesia/Blood Transfusion Reactions: No Reported Reaction Past Psychological History: No Psychological Hx Reported Smoking Status: Former smoker Past Alcohol Use History: None Reported Past Drug Use History: None Reported - Past Family History Mother Family Medical History: Cancer Additional Family Medical History / Comment(s): Mother at 69yrs of age of lung cancer. Father Family Medical History: Cancer Additional Family Medical History / Comment(s): Father at 60 yrs of age of mesothelioma. Brother(s) Family Medical History: Coronary Artery Disease (CAD) Sister(s) Family Medical History: Hypertension Daughter(s) Family Medical History: No Reported History Son(s) Family Medical History: No Reported History Medications and Allergies Home Medications Medication Instructions Recorded Confirmed Type Clopidogrel [Plavix] 75 mg PO DAILY #90 tab 04/27/16 07/05/21 Rx Linagliptin [Tradjenta] 5 mg PO DAILY 11/06/17 07/05/21 History Acetaminophen [Tylenol 8 Hour] 650 mg PO Q6H PRN 06/17/21 07/05/21 History Albuterol Nebulized [Ventolin 2.5 mg INHALATION RT-Q4H PRN 06/17/21 07/05/21 History Nebulized] Atorvastatin Calcium [Lipitor] 10 mg PO HS 06/17/21 07/05/21 History Carvedilol [Coreg] 6.25 mg PO BID 06/17/21 07/05/21 History Cholecalciferol [Vitamin D3 (25 50 mcg PO DAILY 06/17/21 07/05/21 History Mcg = 1000 Iu)] DULoxetine HCL [Cymbalta] 30 mg PO DAILY 06/17/21 07/05/21 History Levothyroxine Sodium [Synthroid] 175 mcg PO DAILY@0500 06/17/21 07/05/21 History Pantoprazole [Protonix] 40 mg PO DAILY@0500 06/17/21 07/05/21 History Ferrous Sulfate [Iron (65 MG 325 mg PO BID #0 06/24/21 07/05/21 Rx Elemental)] Furosemide [Lasix] 20 mg PO DAILY tab 06/24/21 07/05/21 Rx hydrALAZINE HCL [Apresoline] 10 mg PO BID tab 06/24/21 07/05/21 Rx lisinopriL [Zestril] 5 mg PO DAILY tab 06/24/21 07/05/21 Rx Insulin Detemir (Levemir) [Levemir] 20 unit SQ HS 07/05/21 07/05/21 History Sodium Bicarbonate 650 mg PO Q6H 07/05/21 07/05/21 History guaiFENesin [Mucinex] 600 mg PO Q12H PRN 07/05/21 07/05/21 History Allergies Allergy/AdvReac Type Severity Reaction Status Date / Time No Known Allergies Allergy Verified 07/05/21 16:26 Physical Exam Vitals: Vital Signs Temp Pulse Resp BP Pulse Ox 07/06/21 13:52 79 20 107/88 97 07/06/21 12:00 16 153/79 97 07/06/21 11:23 80 07/06/21 11:13 81 07/06/21 07:34 84 07/06/21 07:25 84 100 07/06/21 04:48 97.9 F 86 18 173/82 99 07/06/21 04:27 87 07/06/21 04:17 83 07/05/21 23:55 84 07/05/21 23:46 85 07/05/21 23:28 81 16 135/82 99 07/05/21 20:30 83 07/05/21 20:25 82 07/05/21 17:21 78 20 176/81 98 07/05/21 17:12 76 07/05/21 17:02 74 Intake and Output 07/06/21 07/06/21 07/06/21 06:59 14:59 22:59 Output Total 700 Balance -700 Output: Urine 700 Straight 700 GENERAL EXAM: Alert, very pleasant, 61-year-old white female, morbidly obese, resting on the gurney in the emergency department on 3 L of oxygen, with a pulse ox of 98% comfortable in no apparent distress. HEAD: Normocephalic/atraumatic. EYES: Normal reaction of pupils, equal size. Conjunctiva pink, sclera white. NOSE: Clear with pink turbinates. THROAT: No erythema or exudates. NECK: No masses, no JVD, no thyroid enlargement, no adenopathy. CHEST: No chest wall deformity. Symmetrical expansion. LUNGS: Equal air entry with diminished breath sounds, with scattered rales at the bases CVS: Regular rate and rhythm, normal S1 and S2, no gallops, no murmurs, no rubs ABDOMEN: Soft, nontender. No hepatosplenomegaly, normal bowel sounds, no guarding or rigidity. EXTREMITIES: No clubbing, 1+ lower extremity edema, bilateral lower extremities are kodak wrapped, no cyanosis, 2+ pulses and upper and lower extremities. MUSCULOSKELETAL: Muscle strength and tone normal. SPINE: No scoliosis or deformity SKIN: No rashes CENTRAL NERVOUS SYSTEM: Alert and oriented -3. No focal deficits, tone is normal in all 4 extremities. PSYCHIATRIC: Alert and oriented -3. Appropriate affect. Intact judgment and insight. Results - Laboratory Findings CBC and BMP: 07/05/21 15:05 07/06/21 09:20 PT/INR, D-dimer PT 10.1 sec (9.0-12.0) 07/05/21 15:05 INR 0.9 (<1.2) 07/05/21 15:05 Abnormal lab findings: Abnormal Labs 07/05/21 07/05/21 07/05/21 15:05 15:05 15:05 RBC 2.86 L Hgb 8.2 L Hct 27.1 L MCHC 30.2 L RDW 15.7 H Lymphocytes # 0.9 L APTT 21.4 L BUN 60 H Creatinine 2.17 H Glucose 274 H Plasma Lactic Acid Madhu Calcium 8.2 L Total Protein 5.9 L Albumin 2.8 L 07/05/21 07/06/21 15:05 09:20 RBC Hgb Hct MCHC RDW Lymphocytes # APTT BUN 65 H Creatinine 2.32 H Glucose 367 H Plasma Lactic Acid Madhu 0.5 L Calcium Total Protein Albumin - Diagnostic Findings Chest x-ray: report reviewed, image reviewed Assessment and Plan Plan: Assessment: #1. Acute hypoxic respiratory failure related to acute exacerbation of diasto lic CHF #2. Chronic COPD, severe, probably stage IV at this point, baseline FEV1 of 0.76 or 31% of predicted as of 2018 #3. Ex-smoker, carries [id number] smoking history, in remission for last one year #4. Morbid obesity with BMI of 46.8 kg/m #5. Obstructive sleep apnea syndrome #6. Hypertension #7. Hyperlipidemia #8. Osteoarthritis #9. Peripheral vascular disease with previous intervention and total amputation #10. History of wounds and lower extremity #11. Hypothyroidism #12. History of fibromyalgia #13. History of chronic anemia with iron deficiency, related to antral gastritis based on the recent EGD/colonoscopy from 06/23/2021 #14. History of chronic kidney disease stage IV Plan: Continue IV diuretics Continue breathing treatments Patient's presentation is consistent with mostly acute on chronic CHF exacerbation Continue Mucinex Accurate intake and output, monitor electrolytes and renal profile Nephrology and cardiology recommendations Follow-up chest x-ray tomorrow Daily weights We'll continue to follow I have personally seen and examined the patient, performed the documentation and the assessment and plan as written. Number of minutes spent on the visit: [15] I have personally seen and examined the patient and reviewed the documentation. I performed a joint evaluation with the nurse practitioner in this evaluation was done more than 30 minutes. I fully agree with the documentation above and the plan of care. Joint evaluation with the nurse practitioner. The patient will be treated with IV diuretics. Monitor renal function. Monitor fluid balance. Anticipate improvement over the next 24 hours. We'll continue to follow. Time with Patient: Greater than 30
--- NOTE | 2021-07-06 16:01 | P.CRDCN ---
History of Present Illness Consult date: 07/06/21 History of present illness: This is a 61-year-old female with history of obesity, severe COPD with EF the V1 of 0.76 and also severe diffusing abnormality, diastolic CHF, diabetes mellitus, and also chronic kidney disease and previous peripheral vascular disease with interventions, is sent from [facility] with complaints of weight gain and shortness of breath. Patient developed pain several pounds. Her chest x-ray showed evidence of CHF. Her proBNP is more than 10,000. Her hemoglobin is 8 which is chronic. She is also has elevated creatinine consistent with moderate to severe kidney disease. Patient is initiated on IV diuretics. No complaints of any chest pain or palpitation and EKG showed sinus rhythm. Patient is evaluated by nephrology and pulmonology. We'll continue current medical therapy along with inhalers and other treatments. Prognosis is guarded. Further recommended lipid upon the chemical course. In the past, Echocardiogram showed normal LV function. We'll repeat the echocardiogram Review of Systems As per the chart Past Medical History Past Medical History: COPD, Diabetes Mellitus, Eye Disorder, Fibromyalgia, Hyperlipidemia, Hypertension, Musculoskeletal Disorder, Neurologic Disorder, Osteoarthritis (OA), Pneumonia, Skin Disorder, Sleep Apnea/CPAP/BIPAP, Thyroid D isorder, Vascular Disorder Additional Past Medical History / Comment(s): IDDM type II, diabetic neuropathy hands and feet bilaterally, States she thinks she has Sleep Apnea., bilateral carpal tunnel, vertigo, slight [place] , macular degeneration , hx. bronchitis, & pneumonia., sinus problems, Incontinent bowel and bladder., states scabs on upper arms. , SFA disease, wound on right foot- states no wt bearing- using wheel chair; Flu-ICU admission History of Any Multi-Drug Resistant Organisms: None Reported Past Surgical History: No Surgical Hx Reported Additional Past Surgical History / Comment(s): Colonoscopy, PICC line, Angiogram with Arthrectomy and Femoral stent (2017)rt.3rd & 4th toe amputation 2018 Past Anesthesia/Blood Transfusion Reactions: No Reported Reaction Past Psychological History: No Psychological Hx Reported Smoking Status: Former smoker Past Alcohol Use History: None Reported Past Drug Use History: None Reported - Past Family History Mother Family Medical History: Cancer Additional Family Medical History / Comment(s): Mother at 69yrs of age of lung cancer. Father Family Medical History: Cancer Additional Family Medical History / Comment(s): Father at 60 yrs of age of mesothelioma. Brother(s) Family Medical History: Coronary Artery Disease (CAD) Sister(s) Family Medical History: Hypertension Daughter(s) Family Medical History: No Reported History Son(s) Family Medical History: No Reported History Medications and Allergies Home Medications Medication Instructions Recorded Confirmed Type Clopidogrel [Plavix] 75 mg PO DAILY #90 tab 04/27/16 07/05/21 Rx Linagliptin [Tradjenta] 5 mg PO DAILY 11/06/17 07/05/21 History Acetaminophen [Tylenol 8 Hour] 650 mg PO Q6H PRN 06/17/21 07/05/21 History Albuterol Nebulized [Ventolin 2.5 mg INHALATION RT-Q4H PRN 06/17/21 07/05/21 History Nebulized] Atorvastatin Calcium [Lipitor] 10 mg PO HS 06/17/21 07/05/21 History Carvedilol [Coreg] 6.25 mg PO BID 06/17/21 07/05/21 History Cholecalciferol [Vitamin D3 (25 50 mcg PO DAILY 06/17/21 07/05/21 History Mcg = 1000 Iu)] DULoxetine HCL [Cymbalta] 30 mg PO DAILY 06/17/21 07/05/21 History Levothyroxine Sodium [Synthroid] 175 mcg PO DAILY@0500 06/17/21 07/05/21 History Pantoprazole [Protonix] 40 mg PO DAILY@0500 06/17/21 07/05/21 History Ferrous Sulfate [Iron (65 MG 325 mg PO BID #0 06/24/21 07/05/21 Rx Elemental)] Furosemide [Lasix] 20 mg PO DAILY tab 06/24/21 07/05/21 Rx hydrALAZINE HCL [Apresoline] 10 mg PO BID tab 06/24/21 07/05/21 Rx lisinopriL [Zestril] 5 mg PO DAILY tab 06/24/21 07/05/21 Rx Insulin Detemir (Levemir) [Levemir] 20 unit SQ HS 07/05/21 07/05/21 History Sodium Bicarbonate 650 mg PO Q6H 07/05/21 07/05/21 History guaiFENesin [Mucinex] 600 mg PO Q12H PRN 07/05/21 07/05/21 History Allergies Allergy/AdvReac Type Severity Reaction Status Date / Time No Known Allergies Allergy Verified 07/05/21 16:26 Physical Exam Vitals: Vital Signs Temp Pulse Resp BP Pulse Ox 07/06/21 15:43 77 100 07/06/21 13:52 79 20 107/88 97 07/06/21 12:00 16 153/79 97 07/06/21 11:23 80 07/06/21 11:13 81 07/06/21 07:34 84 07/06/21 07:25 84 100 07/06/21 04:48 97.9 F 86 18 173/82 99 07/06/21 04:27 87 07/06/21 04:17 83 07/05/21 23:55 84 07/05/21 23:46 85 07/05/21 23:28 81 16 135/82 99 07/05/21 20:30 83 07/05/21 20:25 82 07/05/21 17:21 78 20 176/81 98 07/05/21 17:12 76 07/05/21 17:02 74 Intake and Output 07/06/21 07/06/21 07/06/21 06:59 14:59 22:59 Output Total 700 Balance -700 Output: Urine 700 Straight 700 GENERAL EXAM: Patient is alert and oriented and obese rebuilt HEENT: Normocephalic. Normal reaction of pupils, equal size, normal range of extraocular motion. No erythema or exudates in the throat. NECK: No masses, no nuchal rigidity. CHEST: No chest wall deformity. LUNGS: Diminished air entry HEART: S1 and S2 normal. Distant heart sounds ABDOMEN: No hepatosplenomegaly, normal bowel sounds, no guarding or rigidity. SKIN: No rashes CENTRAL NERVOUS SYSTEM: No focal deficits. EXTREMITIES: Bilateral edema but both legs are wrapped Results 07/05/21 15:05 07/06/21 09:20 Cardiac Enzymes 07/05/21 07/05/21 07/05/21 Range/Units 15:05 19:46 22:00 Troponin I 0.022 0.020 0.019 (0.000-0.034) ng/mL Comprehensive Metabolic Panel 07/06/21 Range/Units 09:20 Sodium 137 (137-145) mmol/L Potassium 4.9 (3.5-5.1) mmol/L Chloride 106 (98-107) mmol/L Carbon Dioxide 25 (22-30) mmol/L BUN 65 H (7-17) mg/dL Creatinine 2.32 H (0.52-1.04) mg/dL Glucose 367 H (74-99) mg/dL Calcium 8.6 (8.4-10.2) mg/dL Current Medications Generic Name Dose Route Start Last Admin Trade Name Freq PRN Reason Stop Dose Admin Acetaminophen 650 mg 07/06/21 12:34 Acetaminophen Tab 325 Mg Tab PO Q6H PRN Pain Albuterol/Ipratropium 3 ml 07/06/21 00:00 07/06/21 15:42 Ipratropium-Albuterol 3 Ml Neb INHALATION 3 ml RT-Q4H LESLEE Administration Atorvastatin Calcium 10 mg 07/06/21 21:00 Atorvastatin 10 Mg Tab PO HS [facility] Carvedilol 6.25 mg 07/06/21 17:30 Carvedilol 6.25 Mg Tab PO BID-W/MEALS [facility] Clopidogrel Bisulfate 75 mg 07/07/21 09:00 Clopidogrel 75 Mg Tab PO DAILY [facility] Duloxetine HCl 30 mg 07/06/21 12:45 07/06/21 13:51 Duloxetine Hcl 30 Mg Capsule.Dr PO 30 mg DAILY [facility] Administration Ferrous Sulfate 325 mg 07/06/21 21:00 Ferrous Sulfate 325 Mg Tab PO BID [facility] Furosemide 40 mg 07/06/21 00:00 07/06/21 08:45 Furosemide 10 Mg/Ml 4 Ml Vial IV 40 mg Q8HR [facility] Administration Guaifenesin 600 mg 07/06/21 12:34 Guaifenesin 600 Mg Tablet.Er PO Q12H PRN Cough Hydralazine HCl 50 mg 07/06/21 10:45 07/06/21 10:50 Hydralazine Hcl 50 Mg Tab PO 50 mg TID [facility] Administration Insulin Detemir 10 unit 07/06/21 21:00 Insulin Detemir (Levemir) 100 Unit/Ml Syr SQ HS [facility] Levothyroxine Sodium 176 mcg 07/07/21 05:00 Levothyroxine 88 Mcg Tab PO DAILY@0500 [facility] Linagliptin 5 mg 07/07/21 09:00 Linagliptin 5 Mg Tablet PO DAILY [facility] Nitroglycerin 0.5 inch 07/05/21 22:00 07/06/21 13:51 Nitroglycerin Oint 1 Inch/Gm Packet TOPICAL 0.5 inch QID LESLEE Administration Pantoprazole Sodium 40 mg 07/07/21 05:00 Pantoprazole 40 Mg Tablet PO DAILY@0500 [facility] Intake and Output 07/06/21 07/06/21 07/06/21 06:59 14:59 22:59 Output Total 700 Balance -700 Output: Urine 700 Straight 700 07/05/21 15:05 07/06/21 09:20 EKG Interpretations (text) Sinus rhythm Assessment and Plan (1) Chronic diastolic CHF (congestive heart failure) Current Visit: Yes Status: Acute Code(s): I50.32 - CHRONIC DIASTOLIC (CONGESTIVE) HEART FAILURE SNOMED Code(s): 541305072 (2) Acute exacerbation of chronic obstructive pulmonary disease Current Visit: Yes Status: Acute Code(s): J44.1 - CHRONIC OBSTRUCTIVE PULMONARY DISEASE W (ACUTE) EXACERBATION SNOMED Code(s): 360930375 (3) Chronic anemia Current Visit: Yes Status: Acute Code(s): D64.9 - ANEMIA, UNSPECIFIED SNOMED Code(s): 273396037 (4) Chronic renal insufficiency Current Visit: Yes Status: Acute Code(s): N18.9 - CHRONIC KIDNEY DISEASE, UNSPECIFIED SNOMED Code(s): 013373711 (5) Peripheral vascular disease Current Visit: Yes Status: Acute Code(s): I73.9 - PERIPHERAL VASCULAR DISEASE, UNSPECIFIED SNOMED Code(s): 571026643 Plan: Continue with IV diuretics. Follow range recommendation of nephrology and also pulmonology. Repeat the echocardiogram to assess LV function. Further examination depend upon clinical course
[2021-07-06 17:10] LABS: Glucose,Whole Blood 312 mg/dL (75-99)
[2021-07-06] MEDS: carvediloL 6.25 MG TAB PO SCH (17:10)
[2021-07-06] MEDS ORDERED: INSULIN DETEMIR (LEVEMIR) 100 UNIT/ML SYR SQ ONE (17:15)
[2021-07-06] MEDS ORDERED: IPRATROPIUM-ALBUTEROL 3 ML NEB INHALATION PRN (19:40)
[2021-07-06 20:03] LABS: Glucose,Whole Blood 347 mg/dL (75-99)
[2021-07-06 20:04] LABS: Glucose,Whole Blood 347 mg/dL (75-99)
[2021-07-06] MEDS ORDERED: INSULIN DETEMIR (LEVEMIR) 100 UNIT/ML SYR SQ SCH ×2 (21:00)
[2021-07-06] MEDS: ATORVASTATIN 10 MG TAB PO SCH (21:34)
[2021-07-06] MEDS: FERROUS SULFATE 325 MG TAB PO SCH (21:34)
[2021-07-06 23:30] LABS: Glucose,Whole Blood 335 mg/dL (75-99)
[2021-07-06] MEDS: INSULIN ASPART (NovoLOG) 100 UNIT/ML VIAL SQ SCH (23:46)
[2021-07-07] MEDS: ACETAMINOPHEN TAB 325 MG TAB PO PRN (02:03)
[2021-07-07 06:14] LABS: Glucose,Whole Blood 244 mg/dL (75-99)
[2021-07-07] MEDS: LEVOTHYROXINE 88 MCG TAB PO SCH (06:22)
[2021-07-07] MEDS: PANTOPRAZOLE 40 MG TABLET PO SCH (06:23)
[2021-07-07] MEDS: INSULIN ASPART (NovoLOG) 100 UNIT/ML VIAL SQ SCH ×4 (06:23→21:01)
[2021-07-07] MEDS: IPRATROPIUM-ALBUTEROL 3 ML NEB INHALATION SCH ×4 (07:45→19:32)
[2021-07-07] MEDS: FUROSEMIDE 10 MG/ML 4 ML VIAL IV SCH ×3 (08:31→23:50)
[2021-07-07] MEDS: CLOPIDOGREL 75 MG TAB PO SCH (08:32)
[2021-07-07] MEDS: DULoxetine HCL 30 MG CAPSULE.DR PO SCH (08:32)
[2021-07-07] MEDS: NITROGLYCERIN OINT 1 INCH/GM PACKET TOPICAL SCH ×4 (08:32→21:07)
[2021-07-07] MEDS: carvediloL 6.25 MG TAB PO SCH ×2 (08:32→16:46)
[2021-07-07] MEDS: LINAGLIPTIN 5 MG TABLET PO SCH (08:33)
[2021-07-07] MEDS: hydrALAZINE HCL 50 MG TAB PO SCH ×3 (08:33→21:02)
[2021-07-07] MEDS: FERROUS SULFATE 325 MG TAB PO SCH ×2 (08:33→21:01)
--- NOTE | 2021-07-07 09:18 | CA ---
Transthoracic Echo Report Name: Pop Thrasher Age: 61 Gender: F : 1960 Exam Date: 07/06/2021 13:57 Exam Location: [place] [facility] Ht (in): 63 Wt (lb): 275 Ordering Physician: Skye Ervin MD ([id number]) Attending/Referring Phys: Septic Tank Setter Toyin Christy RDCS Procedure CPT: Indications: chf Cardiac Hx: Technical Quality: Fair Contrast 1: Total Dose (mL): Contrast 2: Total Dose (mL): MEASUREMENTS (Male / Female) Normal Values 2D ECHO LV Diastolic Diameter PLAX 4.5 cm 4.2 - 5.9 / 3.9 - 5.3 cm LV Systolic Diameter PLAX 3.6 cm IVS Diastolic Thickness 1.6 cm 0.6 - 1.0 / 0.6 - 0.9 cm LVPW Diastolic Thickness 1.5 cm 0.6 - 1.0 / 0.6 - 0.9 cm LV Relative Wall Thickness 0.7 RV Internal Dim ED PLAX 2.9 cm LA Systolic Diameter LX 3.6 cm 3.0 - 4.0 / 2.7 - 3.8 cm LA Volume 59.0 cm??? 18 - 58 / 22 - 52 cm??? M-MODE Aortic Root Diameter MM 3.3 cm MV E Point Septal Separation 0.8 cm AV Cusp Separation MM 1.7 cm DOPPLER AV Peak Velocity 140.9 cm/s AV Peak Gradient 7.9 mmHg MV Area PHT 4.0 cm??? Mitral E Point Velocity 144.0 cm/s Mitral A Point Velocity 125.8 cm/s Mitral E to A Ratio 1.1 MV Deceleration Time 187.9 ms MV E' Velocity 4.4 cm/s Mitral E to MV E' Ratio 32.6 TR Peak Velocity 304.3 cm/s TR Peak Gradient 37.0 mmHg Right Ventricular Systolic Press 40.4 mmHg FINDINGS Left Ventricle Left ventricular ejection fraction is estimated at 45-50 %. Left ventricular cavity size normal. Moderate concentric left ventricular hypertrophy. Right Ventricle Normal right ventricular size and function. Mild pulmonary hypertension. Right Atrium Normal right atrial size. Left Atrium Mildly increased left atrial volume. No evidence for an atrial septal defect. Mitral Valve Mitral valve thickened. Mitral annular calcification. Mild to moderate mitral regurgitation. Aortic Valve Focal thickening of the aortic valve cusps. No aortic valve stenosis or regurgitation. Tricuspid Valve Mild tricuspid regurgitation. Pulmonic Valve Trace pulmonic regurgitation. Pericardium Normal pericardium. Aorta Normal size aortic root and proximal ascending aorta. CONCLUSIONS Mildly impaired LV function with EF between 45-50% [id number] mitral regurgitation Previewed by: Dr. Shaan Staton MD (Electronically Signed) Final Date: 07 Jul 2021 09:17
--- NOTE | 2021-07-07 10:32 | P.PN ---
Subjective Patient is seen in follow-up for chronic kidney disease. On IV Lasix. Edema improving. Nonoliguric. Denies chest pain or shortness breath. On 2 L nasal cannula. Hemodynamically stable. Vital signs are stable. General: Awake and alert. HEENT: Head exam is unremarkable. LUNGS: Breath sounds decreased. HEART: Rate and Rhythm are regular. ABDOMEN: Soft, obese. EXTREMITITES: 1+ edema. Lower extremity is wrapped. Objective - Vital Signs Vital signs: Vital Signs Temp 98.0 F 07/07/21 04:00 Pulse 87 07/07/21 08:03 Resp 16 07/07/21 08:00 BP 113/67 07/07/21 08:00 Pulse Ox 95 07/07/21 08:00 FiO2 Intake & Output 07/06/21 07/07/21 07/07/21 18:59 06:59 18:59 Intake Total 700 180 Output Total 1600 700 Balance -900 -700 180 Weight 123.74 kg 122.7 kg Intake: Oral 700 180 Output: Urine 1600 700 Other: Voiding Method Indwelling Catheter - Labs CBC & Chem 7: 07/05/21 15:05 07/06/21 09:20 Labs: Abnormal Lab Results - Last 24 Hours (Table) 07/06/21 07/06/21 07/06/21 Range/Units 17:09 20:01 20:01 POC Glucose (mg/dL) 312 H 347 H 347 H (75-99) mg/dL 07/06/21 07/07/21 Range/Units 23:28 06:12 POC Glucose (mg/dL) 335 H 244 H (75-99) mg/dL Assessment and Plan Plan: Assessment: 1. Chronic kidney disease stage IV secondary to diabetic kidney disease with baseline creatinine the range of 2-2.3. Ultrasound from June 2021 showed no evidence of hydronephrosis. 2. Volume overload. Improving with diuresis. 3. Acute hypoxic respiratory failure. 4. Diabetes mellitus. 5. Hypertension with chronic any disease. 6. Anemia of chronic kidney disease. 7. Acute on chronic diastolic CHF. Plan: Maintain IV Lasix. 1200 mL fluid resection. Low-salt diet. Daily weights. Check iron studies. Continue to monitor renal function and urine output. Hold hydralazine for systolic blood pressure less than 120. Follow-up morning labs.
[2021-07-07 10:40] LABS: Calcium 8.3 mg/dL (8.4-10.2); Magnesium 1.8 mg/dL (1.6-2.3); Potassium 4.7 mmol/L (3.5-5.1)
[2021-07-07] MEDS ORDERED: INSULIN ASPART (NovoLOG) 100 UNIT/ML VIAL SQ ONE (12:30)
[2021-07-07] MEDS ORDERED: NITROGLYCERIN OINT 1 INCH/GM PACKET TOPICAL ONE (12:34)
[2021-07-07] MEDS ORDERED: IPRATROPIUM-ALBUTEROL 3 ML NEB ONE (12:34)
[2021-07-07 14:42] VITALS: BMI 46.4
--- NOTE | 2021-07-07 14:42 | P.PN ---
Subjective Progress Note Date: 07/07/21 HISTORY OF PRESENT ILLNESS: 07/06/2021 This is a 61-year-old female with history of obesity, severe COPD with EF the V1 of 0.76 and also severe diffusing abnormality, diastolic CHF, diabetes mellitus, and also chronic kidney disease and previous peripheral vascular disease with interventions, is sent from [facility] with complaints of weight gain and shortness of breath. Patient developed pain several pounds. Her chest x-ray showed evidence of CHF. Her proBNP is more than 10,000. Her hemoglobin is 8 which is chronic. She is also has elevated creatinine consistent with moderate to severe kidney disease. Patient is initiated on IV diuretics. No complaints of any chest pain or palpitation and EKG showed sinus rhythm. Patient is evaluated by nephrology and pulmonology. We'll continue current medical therapy along with inhalers and other treatments. Prognosis is guarded. Further recommended lipid upon the chemical course. In the past, Echocardiogram showed normal LV function. We'll repeat the echocardiogram 07/07/2021 Patient examined this morning at the bedside. Patient denies chest pain or pressure. She remains on IV Lasix. She reports improvement in her shortness of breath. blood pressure 113/67. PHYSICAL EXAM: VITAL SIGNS: Reviewed. GENERAL: Well-developed in no acute distress. NECK: Supple. No JVD or thyromegaly LUNGS: Respirations even and unlabored. Lungs diminished auscultation bilaterally. HEART: Regular rate and rhythm. S1 and S2 heard. EXTREMITIES: Normal range of motion. No clubbing or cyanosis. Peripheral pulses intact. Bilateral lower extremity edema ASSESSMENT: acute on chronic congestive heart failure with preserved ejection fraction COPD exacerbation Hypertension Hyperlipidemia Peripheral vascular disease Chronic kidney disease Former nicotine dependence Obstructive sleep apnea PLAN: 2-D echo ordered. Await results Continue IV Lasix Monitor kidney function Daily weights ACcurate I&O Pulmonary following Further recommendations pending patient course Nurse practitioner note has been reviewed by physician. Signing provider agrees with the documented findings, assessment, and plan of care. Objective - Vital Signs Vital signs: Vital Signs Temp 98.0 F 07/07/21 04:00 Pulse 87 07/07/21 08:03 Resp 16 07/07/21 08:00 BP 113/67 07/07/21 08:00 Pulse Ox 95 07/07/21 08:00 FiO2 Intake & Output 07/06/21 07/07/21 07/07/21 18:59 06:59 18:59 Intake Total 700 180 Output Total 1600 700 Balance -900 -700 180 Weight 123.74 kg 122.7 kg Intake: Oral 700 180 Output: Urine 1600 700 Other: Voiding Method Indwelling Catheter - Labs CBC & Chem 7: 07/05/21 15:05 07/07/21 08:42 Labs: Abnormal Lab Results - Last 24 Hours (Table) 07/06/21 07/06/21 07/06/21 Range/Units 17:09 20:01 20:01 Sodium (137-145) mmol/L BUN (7-17) mg/dL Creatinine (0.52-1.04) mg/dL Glucose (74-99) mg/dL POC Glucose (mg/dL) 312 H 347 H 347 H (75-99) mg/dL Calcium (8.4-10.2) mg/dL 07/06/21 07/07/21 07/07/21 Range/Units 23:28 06:12 08:42 Sodium 136 L (137-145) mmol/L BUN 70 H (7-17) mg/dL Creatinine 2.39 H (0.52-1.04) mg/dL Glucose 216 H (74-99) mg/dL POC Glucose (mg/dL) 335 H 244 H (75-99) mg/dL Calcium 8.3 L (8.4-10.2) mg/dL
[2021-07-07 14:51] LABS: Glucose,Whole Blood 256 mg/dL (75-99)
--- NOTE | 2021-07-07 14:54 | P.PN ---
Subjective Progress Note Date: 07/07/21 This is a 61-year-old female patient with multiple chronic medical conditions i ncluding severe COPD, and her last PFT from 2018 showed FEV1 of 0.76 or 31% of predicted, with FVC of 36% of predicted, and severe diffusion abnormality, patient is a former smoker, quit smoking a year ago, but does carry a [id number] smoking history, she states she is not oxygen dependent at base line, she also has history of chronic CHF, obstructive sleep apnea syndrome, morbid obesity, diabetes mellitus type 2 with diabetic neuropathy, chronic kidney disease, hypertension, hyperlipidemia, peripheral vascular disease with previous intervention, and toes amputated, and history of wounds on the right lower extremity. Patient used to follow with Dr. Huang in the pulmonary office, however has not been back to see him since 2018. On 07/05/2021 patient came into the ER for evaluation of 40 pound weight gain, increased lower extremity edema and worsening shortness of breath for the past 3 days. Patient is a resident of a local [facility]. She was started on oxygen there. She denied any fever or chills, no cough, no phlegm production, no hemoptysis, no complaints of chest discomfort. Chest x-ray in emergency department showed cardiomegaly with COPD, diffuse interstitial opacities, mild patchy bibasilar opacities, curly B-lines, no sizable pleural effusion. Vital signs have been stable, patient is satting 98% on 3 L, lab work showed normal white count of 8.5, hemoglobin of 8.2, plate let count of 229, INR of 0.9, electrolytes within normal limits, BUN of 60 creatinine of 2.17, lactic acid 0.5, troponin I 0.022, 0.020, and 0.019, proBNP is 11,002 100. LFTs were within normal limits. Patient was started on IV diuretics, breathing treatments, she was given one-time dose of IV Solu-Medrol. Nephrology and cardiology are on board. And we were consulted for acute exacerbation of COPD related to acute exacerbation of CHF On 07/07/2021, seeing the patient for a follow-up. The patient is doing well. The patient is being diuresis and the patient seems to be negative fluid ruby nce. She still has significant amount of edema in lower extremities bilaterally and on examination she continues to have crackers in the lung bases. Underwent oxygen, the patient's pulse ox is 90%. The patient has no major electrolyte disturbances. Serum bicarbs of 26 and the patient's sodium is at 136. BUN is at 70 with a creatinine of 2.39 as the patient is a component of stage IV chronic kidney disease. No reported chest pain. Nausea reported angina or palpitation. The patient remains on DuoNeb about treatments around the clock regarding her COPD. Echocardiogram results are still pending for now. She is on Lasix 40 mg IV every 8 hours. Outpatient medication is a been ordered re trish. Nephrology on the case. The patient is a senior living resident. Objective - Vital Signs Vital signs: Vital Signs Temp 98.0 F 07/07/21 04:00 Pulse 89 07/07/21 12:42 Resp 16 07/07/21 12:00 BP 147/70 07/07/21 12:00 Pulse Ox 98 07/07/21 12:00 FiO2 Intake & Output 07/06/21 07/07/21 07/07/21 18:59 06:59 18:59 Intake Total 700 180 Output Total 1600 700 Balance -900 -700 180 Weight 123.74 kg 122.7 kg 122.7 kg Intake: Oral 700 180 Output: Urine 1600 700 Other: Voiding Method Indwelling Catheter Indwelling Catheter - Exam GENERAL EXAM: Alert, very pleasant, 61-year-old white female, morbidly obese, resting comfortably and the patient is currently on room air oxygen Head exam was generally normal. There was no scleral icterus or corneal arcus. Mucous membranes were moist THROAT: No erythema or exudates. NECK: No masses, no JVD, no thyroid enlargement, no adenopathy. CHEST: No chest wall deformity. Symmetrical expansion. LUNGS: Equal air entry with diminished breath sounds, with scattered rales at the bases CVS: Regular rate and rhythm, normal S1 and S2, no gallops, no murmurs, no rubs ABDOMEN: Soft, nontender. No hepatosplenomegaly, normal bowel sounds, no guarding or rigidity. EXTREMITIES: No clubbing, 1+ lower extremity edema, bilateral lower extremities are kodak wrapped, no cyanosis, 2+ pulses and upper and lower extremities. MUSCULOSKELETAL: Muscle strength and tone normal. SPINE: No scoliosis or deformity SKIN: No rashes CENTRAL NERVOUS SYSTEM: Alert and oriented -3. No focal deficits, tone is normal in all 4 extremities. PSYCHIATRIC: Alert and oriented -3. Appropriate affect. Intact judgment and insight. - Labs CBC & Chem 7: 07/05/21 15:05 07/07/21 08:42 Labs: Abnormal Lab Results - Last 24 Hours (Table) 07/06/21 07/06/21 07/06/21 Range/Units 17:09 20:01 20:01 Sodium (137-145) mmol/L BUN (7-17) mg/dL Creatinine (0.52-1.04) mg/dL Glucose (74-99) mg/dL POC Glucose (mg/dL) 312 H 347 H 347 H (75-99) mg/dL Calcium (8.4-10.2) mg/dL 07/06/21 07/07/21 07/07/21 Range/Units 23:28 06:12 08:42 Sodium 136 L (137-145) mmol/L BUN 70 H (7-17) mg/dL Creatinine 2.39 H (0.52-1.04) mg/dL Glucose 216 H (74-99) mg/dL POC Glucose (mg/dL) 335 H 244 H (75-99) mg/dL Calcium 8.3 L (8.4-10.2) mg/dL Assessment and Plan Plan: Assessment: #1. Acute hypoxic respiratory failure related to acute exacerbation of diastolic CHF #2. Chronic COPD, severe, probably stage IV at this point, baseline FEV1 of 0.76 or 31% of predicted as of 2018 #3. Ex-smoker, carries [id number] smoking history, in remission for last one year #4. Morbid obesity with BMI of 46.8 kg/m #5. Obstructive sleep apnea syndrome #6. Hypertension #7. Hyperlipidemia #8. Osteoarthritis #9. Peripheral vascular disease with previous intervention and total amputation #10. History of wounds and lower extremity #11. Hypothyroidism #12. History of fibromyalgia #13. History of chronic anemia with iron deficiency, related to antral gastritis based on the recent EGD/colonoscopy from 06/23/2021 #14. History of chronic kidney disease stage IV Plan: Continue IV diuretics, the patient is maintained on Lasix 40 mg every 8 hours. We will monitor the fluid balance in the lower extremity edema. We'll closely monitor renal function also. Continue breathing treatments Patient's presentation is consistent with mostly acute on chronic CHF exacerbation Continue Mucinex Accurate intake and output, monitor electrolytes and renal profile Nephrology and cardiology recommendations Long-term prognosis poor baseline above-mentioned comorbidities. Echocardiogram was done today and the results are still pending for now, we will review the final report once available Patient is currently on room air oxygen and her COPD is currently inactive and stable. She does have obvious signs of CHF and fluid overload.
[2021-07-07 16:38] LABS: Glucose,Whole Blood 312 mg/dL (75-99)
[2021-07-07 16:44] LABS: Anisocytosis Slight; Basophils % (A) 0 %; Eosinophils # (A) 0.1 k/uL (0-0.7); Eosinophils % (A) 1 %; HGB 7.9 gm/dL (11.4-16.0); Hypochromasia Marked; Lymphocytes # (A) 1.1 k/uL (1.0-4.8); Lymphocytes % (A) 11 %; MCH 28.7 pg (25.0-35.0); MCHC 29.1 g/dL (31.0-37.0); MCV 98.7 fL (80.0-100.0); Macrocytosis Slight; Mean Platelet Volume 9.1; Monocytes # (A) 0.3 k/uL (0-1.0); Monocytes % (A) 3 %; Neutrophils # (A) 8.3 k/uL (1.3-7.7); Neutrophils % (A) 83 %; Platelet Count 277 k/uL (150-450); RBC 2.73 m/uL (3.80-5.40); RDW 16.1 % (11.5-15.5)
[2021-07-07 19:32] LABS: Glucose,Whole Blood 290 mg/dL (75-99)
--- NOTE | 2021-07-07 20:16 | P.PN ---
Subjective 61-year-old female, history of COPD, diabetes mellitus, hypertension, hyperlipidemia, hypothyroidism, presents because of dyspnea Patient is awake and alert but somewhat confused, she thinks she is in [facility], she knew it is 2021 but thought it is July and she could not tell the day, but she knew the president. She needs to remind her with some inflammation. She came from care home. She is poor historian and information were obtained also from staff records. From [facility], pt had COPD and CHF exacerbation 1 month ago. Pt has gained 40lbs since discharge. Pt also states that she has been short of breath x 3 days. Pt was placed on 2 L 2 days ago for SOB. Pt sp02 was 92% on EMS arrival. She's been complaining of from dyspnea but no chest pain with little cough with no phlegm. She denies diarrhea or vomiting. She complains from some dysuria. Her vitals are stable and she is saturating 93% on 3 L oxygen via nasal cannula. hemoglobin of 8.2, wbc of 8.5, platelet count normal. inr 0.9, creatinine is 2.1, compared to baseline of 2.0-2.3. Serial troponin are negative at 0.02 and 0.019. ProBNP is slightly increased 8290 up to 11,200 his x-ray showing COPD, mild cardiomegaly and possible some mild congestion when reviewed by me. EKG showing normal sinus rhythm at [address]-T changes. In ED patient received IV Lasix and Solu-Medrol 07/07/2021 Patient still with fluid overload, however she's not in respiratory distress at rest. And her oxygen saturation is acceptable. Hemoccult 7.9 , creatinine is likely up at 2.3 but still within her baseline range, she has C Riri stage IV Echocardiogram showed ejection fraction of 40-45% with [id number] mitral regurgitation Patient continued on IV Lasix 40 mg COPD stable, discussed with pulmonary team Objective - Vital Signs Vital signs: Vital Signs Temp 98.0 F 07/07/21 04:00 Pulse 89 07/07/21 12:42 Resp 16 07/07/21 12:00 BP 147/70 07/07/21 12:00 Pulse Ox 98 07/07/21 12:00 FiO2 Intake & Output 07/06/21 07/07/21 07/07/21 18:59 06:59 18:59 Intake Total 700 180 Output Total 1600 700 Balance -900 -700 180 Weight 123.74 kg 122.7 kg 122.7 kg Intake: Oral 700 180 Output: Urine 1600 700 Other: Voiding Method Indwelling Catheter Indwelling Catheter - Exam GENERAL: The patient is alert and oriented x3, not in any acute distress. Well developed, well nourished. HEENT: Pupils are round and equally reacting to light. EOMI. No scleral icterus. No conjunctival pallor. Normocephalic, atraumatic. No pharyngeal erythema. No thyromegaly. CARDIOVASCULAR: S1 and S2 present. No murmurs, rubs, or gallops. -PULMONARY: Chest is clear to auscultation, no wheezing. Mild Bilateral basal crepitation, but has decreased air entry on both sides ABDOMEN: Soft, nontender, nondistended, normoactive bowel sounds. No palpable organomegaly. MUSCULOSKELETAL: No joint swelling or deformity. -EXTREMITIES: No cyanosis, clubbing,. Bilateral pitting leg edema, 2+ NEUROLOGICAL: Gross neurological examination did not reveal any focal deficits. SKIN: No rashes. no petechiae. - Labs CBC & Chem 7: 07/07/21 08:42 07/07/21 08:42 Labs: Abnormal Lab Results - Last 24 Hours (Table) 07/06/21 07/06/21 07/06/21 Range/Units 17:09 20:01 20:01 Sodium (137-145) mmol/L BUN (7-17) mg/dL Creatinine (0.52-1.04) mg/dL Glucose (74-99) mg/dL POC Glucose (mg/dL) 312 H 347 H 347 H (75-99) mg/dL Calcium (8.4-10.2) mg/dL 07/06/21 07/07/21 07/07/21 Range/Units 23:28 06:12 08:42 Sodium 136 L (137-145) mmol/L BUN 70 H (7-17) mg/dL Creatinine 2.39 H (0.52-1.04) mg/dL Glucose 216 H (74-99) mg/dL POC Glucose (mg/dL) 335 H 244 H (75-99) mg/dL Calcium 8.3 L (8.4-10.2) mg/dL Assessment and Plan Assessment: Acute CHF exacerbation COPD, stable with no exacerbation currently Dysuria, rule out urinary tract infection Chronic kidney disease, stage IV. Hyperlipidemia Hypertension Hypothyroidism Chronic leukocytosis Morbid obesity, BMI 46.8 Plan: This is a pleasant 61 years old female who presents with COPD and CHF continue with Solu-Medrol, recent treatment bronchodilator Continue with IV Lasix Check urinalysis and bladder scan Monitor creatinine and input and output. Follow-up consult The Case, Cardiology, Nephrology and Pulmonology There were large her Levemir 20 units down to 10 units for now, continue with insulin sliding scale Labs and medication were reviewed.. Continue same treatment. Continue with symptomatic treatment. Resume home medication. Monitor lytes and vitals. DVT and GI prophylaxis. Further recommendations as per clinical course of the patient DVT prophylaxis: Subcutaneous heparin GI Prophylaxis: Ppi Prognosis is guarded
[2021-07-07] MEDS: INSULIN DETEMIR (LEVEMIR) 100 UNIT/ML SYR SQ SCH (21:02)
[2021-07-07] MEDS: ATORVASTATIN 10 MG TAB PO SCH (21:02)
[2021-07-08 02:58] LABS: % Iron Saturation 9.76 (12.00-45.00)
[2021-07-08] MEDS: PANTOPRAZOLE 40 MG TABLET PO SCH (04:15)
[2021-07-08] MEDS: LEVOTHYROXINE 88 MCG TAB PO SCH (04:15)
[2021-07-08 05:20] LABS: Glucose,Whole Blood 148 mg/dL (75-99)
[2021-07-08] MEDS: INSULIN ASPART (NovoLOG) 100 UNIT/ML VIAL SQ SCH ×4 (06:40→22:10)
[2021-07-08] MEDS: carvediloL 6.25 MG TAB PO SCH ×2 (06:40→18:09)
--- NOTE | 2021-07-08 07:16 | XR ---
EXAMINATION TYPE: XR chest 1V DATE OF EXAM: 07/08/2021 CLINICAL HISTORY: Difficulty breathing progress study. TECHNIQUE: Single AP portable upright view of the chest is obtained. COMPARISON: Chest x-ray from 3 days earlier FINDINGS: Cardiomegaly redemonstrated with atherosclerotic thoracic aorta. Increased interstitial mar kings bilaterally remain present. There is a new small to tiny left pleural effusion. Osseous structu res are intact. IMPRESSION: Cardiomegaly with persistent interstitial edema and small to tiny left pleural effusion.
[2021-07-08] MEDS: IPRATROPIUM-ALBUTEROL 3 ML NEB INHALATION SCH ×4 (07:26→20:36)
[2021-07-08 09:16] LABS: Calcium 8.1 mg/dL (8.4-10.2); Magnesium 1.8 mg/dL (1.6-2.3); Potassium 4.6 mmol/L (3.5-5.1)
[2021-07-08] MEDS: DULoxetine HCL 30 MG CAPSULE.DR PO SCH (09:47)
[2021-07-08] MEDS: NITROGLYCERIN OINT 1 INCH/GM PACKET TOPICAL SCH ×4 (09:47→22:14)
[2021-07-08] MEDS: LINAGLIPTIN 5 MG TABLET PO SCH (09:47)
[2021-07-08] MEDS: FERROUS SULFATE 325 MG TAB PO SCH (09:47)
[2021-07-08] MEDS: hydrALAZINE HCL 50 MG TAB PO SCH ×3 (09:47→22:11)
[2021-07-08] MEDS: FUROSEMIDE 10 MG/ML 4 ML VIAL IV SCH ×3 (09:47→22:11)
[2021-07-08] MEDS: CLOPIDOGREL 75 MG TAB PO SCH (09:47)
--- NOTE | 2021-07-08 10:26 | P.PN ---
Subjective Patient is seen in follow-up for chronic kidney disease. On IV Lasix. Edema improving. Nonoliguric. Denies chest pain or shortness breath. On 3 L nasal cannula. Hemodynamically stable. Renal function stable. Vital signs are stable. General: Awake and alert. HEENT: Head exam is unremarkable. LUNGS: Breath sounds decreased. HEART: Rate and Rhythm are regular. ABDOMEN: Soft, obese. EXTREMITITES: 1+ edema. Lower extremity is wrapped. Objective - Vital Signs Vital signs: Vital Signs Temp 98.4 F 07/08/21 03:37 Pulse 78 07/08/21 03:37 Resp 20 07/08/21 03:37 BP 141/66 07/08/21 03:37 Pulse Ox 98 07/08/21 03:37 FiO2 Intake & Output 07/07/21 07/08/21 07/08/21 18:59 06:59 18:59 Intake Total 600 120 Output Total 1450 1650 Balance -850 -1530 Weight 122.7 kg 122.1 kg Intake: Oral 600 120 Output: Urine 1450 1650 Uretheral (Leigh) 850 Other: Voiding Method Indwelling Catheter Indwelling Catheter # Bowel Movements 1 - Labs CBC & Chem 7: 07/07/21 08:42 07/08/21 08:46 Labs: Abnormal Lab Results - Last 24 Hours (Table) 07/07/21 07/07/21 07/07/21 Range/Units 08:42 08:42 08:42 RBC 2.73 L (3.80-5.40) m/uL Hgb 7.9 L (11.4-16.0) gm/dL Hct 27.0 L (34.0-46.0) % MCHC 29.1 L (31.0-37.0) g/dL RDW 16.1 H (11.5-15.5) % Neutrophils # 8.3 H (1.3-7.7) k/uL Sodium 136 L (137-145) mmol/L BUN 70 H (7-17) mg/dL Creatinine 2.39 H (0.52-1.04) mg/dL Glucose 216 H (74-99) mg/dL POC Glucose (mg/dL) (75-99) mg/dL Calcium 8.3 L (8.4-10.2) mg/dL Iron 27 L (50-170) ug/dL % Saturation 9.76 L (12.00-45.00) Transferrin 194.0 L (204.0-354.0) mg/dL 07/07/21 07/07/21 07/07/21 Range/Units 11:48 16:36 19:30 RBC (3.80-5.40) m/uL Hgb (11.4-16.0) gm/dL Hct (34.0-46.0) % MCHC (31.0-37.0) g/dL RDW (11.5-15.5) % Neutrophils # (1.3-7.7) k/uL Sodium (137-145) mmol/L BUN (7-17) mg/dL Creatinine (0.52-1.04) mg/dL Glucose (74-99) mg/dL POC Glucose (mg/dL) 256 H 312 H 290 H (75-99) mg/dL Calcium (8.4-10.2) mg/dL Iron (50-170) ug/dL % Saturation (12.00-45.00) Transferrin (204.0-354.0) mg/dL 07/08/21 07/08/21 Range/Units 05:19 08:46 RBC (3.80-5.40) m/uL Hgb (11.4-16.0) gm/dL Hct (34.0-46.0) % MCHC (31.0-37.0) g/dL RDW (11.5-15.5) % Neutrophils # (1.3-7.7) k/uL Sodium (137-145) mmol/L BUN 73 H (7-17) mg/dL Creatinine 2.34 H (0.52-1.04) mg/dL Glucose 103 H (74-99) mg/dL POC Glucose (mg/dL) 148 H (75-99) mg/dL Calcium 8.1 L (8.4-10.2) mg/dL Iron (50-170) ug/dL % Saturation (12.00-45.00) Transferrin (204.0-354.0) mg/dL Assessment and Plan Plan: Assessment: 1. Chronic kidney disease stage IV secondary to diabetic kidney disease with baseline creatinine the range of 2-2.3. Ultrasound from June 2021 showed no evidence of hydronephrosis. 2. Volume overload. Improving with diuresis. 3. Acute hypoxic respiratory failure. 4. Diabetes mellitus. 5. Hypertension with chronic kidney disease. 6. Anemia of chronic kidney disease. Iron deficiency noted. 7. Acute on chronic diastolic CHF. Plan: Maintain IV Lasix. 1200 mL fluid resection. Low-salt diet. Daily weights. Add IV iron. Continue to monitor renal function and urine output. Hold hydralazine for systolic blood pressure less than 120. Transition to oral Demadex upon discharge.
--- NOTE | 2021-07-08 10:42 | P.PN ---
Subjective Progress Note Date: 07/08/21 HISTORY OF PRESENT ILLNESS: 07/06/2021 This is a 61-year-old female with history of obesity, severe COPD with EF the V1 of 0.76 and also severe diffusing abnormality, diastolic CHF, diabetes mellitus, and also chronic kidney disease and previous peripheral vascular disease with interventions, [facility] with complaints of weight gain and shortness of breath. Patient developed pain several pounds. Her chest x-ray showed evidence of CHF. Her proBNP is more than 10,000. Her hemoglobin is 8 which is chronic. She is also has elevated creatinine consistent with moderate to severe kidney disease. Patient is initiated on IV diuretics. No complaints of any chest pain or palpitation and EKG showed sinus rhythm. Patient is evaluated by nephrology and pulmonology. We'll continue current medical therapy along with inhalers and other treatments. Prognosis is guarded. Further recommended lipid upon the chemical course. In the past, Echocardiogram showed normal LV function. We'll repeat the echocardiogram 07/07/2021 Patient examined this morning at the bedside. Patient denies chest pain or pressure. She remains on IV Lasix. She reports improvement in her shortness of breath. blood pressure 113/67. 07/08/2021 Patient examined this morning at the bedside. Patient denies chest pain or pressure. Reports improving SOB. She remains on IV lasix. Chest x-ray this morning reveals cardia megaly with persistent interstitial edema and small to tiny left pleural effusion. Echocardiogram completed revealing ejection fraction 45-50%, moderate LVH, mild pulmonary hypertension, [id number] mitral regurgitation, and mild tricuspid regurgitation PHYSICAL EXAM: VITAL SIGNS: Reviewed. GENERAL: Well-developed in no acute distress. NECK: Supple. No JVD or thyromegaly LUNGS: Respirations even and unlabored. Lungs diminished auscultation bilaterally. HEART: Regular rate and rhythm. S1 and S2 heard. EXTREMITIES: Normal range of motion. No clubbing or cyanosis. Peripheral pulses intact. Bilateral lower extremity edema ASSESSMENT: acute on chronic congestive heart failure with preserved ejection fraction, b orderline to intermediate, EF 45-50% COPD exacerbation Hypertension Hyperlipidemia Peripheral vascular disease Chronic kidney disease Former nicotine dependence Obstructive sleep apnea PLAN: Continue IV Lasix Monitor kidney function. Nephrology following Daily weights Accurate I&O Further recommendations pending patient course Nurse practitioner note has been reviewed by physician. Signing provider agrees with the documented findings, assessment, and plan of care. Objective - Vital Signs Vital signs: Vital Signs Temp 98.4 F 07/08/21 03:37 Pulse 78 07/08/21 03:37 Resp 20 07/08/21 03:37 BP 141/66 07/08/21 03:37 Pulse Ox 98 07/08/21 03:37 FiO2 Intake & Output 07/07/21 07/08/21 07/08/21 18:59 06:59 18:59 Intake Total 600 120 0 Output Total 1450 1650 Balance -850 -1530 0 Weight 122.7 kg 122.1 kg Intake: Oral 600 120 0 Output: Urine 1450 1650 Uretheral (Leigh) 850 Other: Voiding Method Indwelling Catheter Indwelling Catheter # Bowel Movements 1 - Labs CBC & Chem 7: 07/07/21 08:42 07/08/21 08:46 Labs: Abnormal Lab Results - Last 24 Hours (Table) 07/07/21 07/07/21 07/07/21 Range/Units 08:42 08:42 08:42 RBC 2.73 L (3.80-5.40) m/uL Hgb 7.9 L (11.4-16.0) gm/dL Hct 27.0 L (34.0-46.0) % MCHC 29.1 L (31.0-37.0) g/dL RDW 16.1 H (11.5-15.5) % Neutrophils # 8.3 H (1.3-7.7) k/uL Sodium 136 L (137-145) mmol/L BUN 70 H (7-17) mg/dL Creatinine 2.39 H (0.52-1.04) mg/dL Glucose 216 H (74-99) mg/dL POC Glucose (mg/dL) (75-99) mg/dL Calcium 8.3 L (8.4-10.2) mg/dL Iron 27 L (50-170) ug/dL % Saturation 9.76 L (12.00-45.00) Transferrin 194.0 L (204.0-354.0) mg/dL 07/07/21 07/07/21 07/07/21 Range/Units 11:48 16:36 19:30 RBC (3.80-5.40) m/uL Hgb (11.4-16.0) gm/dL Hct (34.0-46.0) % MCHC (31.0-37.0) g/dL RDW (11.5-15.5) % Neutrophils # (1.3-7.7) k/uL Sodium (137-145) mmol/L BUN (7-17) mg/dL Creatinine (0.52-1.04) mg/dL Glucose (74-99) mg/dL POC Glucose (mg/dL) 256 H 312 H 290 H (75-99) mg/dL Calcium (8.4-10.2) mg/dL Iron (50-170) ug/dL % Saturation (12.00-45.00) Transferrin (204.0-354.0) mg/dL 07/08/21 07/08/21 Range/Units 05:19 08:46 RBC (3.80-5.40) m/uL Hgb (11.4-16.0) gm/dL Hct (34.0-46.0) % MCHC (31.0-37.0) g/dL RDW (11.5-15.5) % Neutrophils # (1.3-7.7) k/uL Sodium (137-145) mmol/L BUN 73 H (7-17) mg/dL Creatinine 2.34 H (0.52-1.04) mg/dL Glucose 103 H (74-99) mg/dL POC Glucose (mg/dL) 148 H (75-99) mg/dL Calcium 8.1 L (8.4-10.2) mg/dL Iron (50-170) ug/dL % Saturation (12.00-45.00) Transferrin (204.0-354.0) mg/dL
[2021-07-08] MEDS: SODIUM FERRIC GLUCONAT-SUCROSE 125 MG in SODIUM CHLORIDE 0.9% 100 ML IVPB SCH (12:08)
[2021-07-08 12:13] LABS: Glucose,Whole Blood 108 mg/dL (75-99)
--- NOTE | 2021-07-08 12:44 | P.PN ---
Subjective Progress Note Date: 07/08/21 This is a 61-year-old female patient with multiple chronic medical conditions i ncluding severe COPD, and her last PFT from 2018 showed FEV1 of 0.76 or 31% of predicted, with FVC of 36% of predicted, and severe diffusion abnormality, patient is a former smoker, quit smoking a year ago, but does carry a [id number] smoking history, she states she is not oxygen dependent at base line, she also has history of chronic CHF, obstructive sleep apnea syndrome, morbid obesity, diabetes mellitus type 2 with diabetic neuropathy, chronic kidney disease, hypertension, hyperlipidemia, peripheral vascular disease with previous intervention, and toes amputated, and history of wounds on the right lower extremity. Patient used to follow with Dr. Huang in the pulmonary office, however has not been back to see him since 2018. On 07/05/2021 patient came into the ER for evaluation of 40 pound weight gain, increased lower extremity edema and worsening shortness of breath for the past 3 days. Patient is a resident of a local [facility]. She was started on oxygen there. She denied any fever or chills, no cough, no phlegm production, no hemoptysis, no complaints of chest discomfort. Chest x-ray in emergency department showed cardiomegaly with COPD, diffuse interstitial opacities, mild patchy bibasilar opacities, curly B-lines, no sizable pleural effusion. Vital signs have been stable, patient is satting 98% on 3 L, lab work showed normal white count of 8.5, hemoglobin of 8.2, plate let count of 229, INR of 0.9, electrolytes within normal limits, BUN of 60 creatinine of 2.17, lactic acid 0.5, troponin I 0.022, 0.020, and 0.019, proBNP is 11,002 100. LFTs were within normal limits. Patient was started on IV diuretics, breathing treatments, she was given one-time dose of IV Solu-Medrol. Nephrology and cardiology are on board. And we were consulted for acute exacerbation of COPD related to acute exacerbation of CHF On 07/07/2021, seeing the patient for a follow-up. The patient is doing well. The patient is being diuresis and the patient seems to be negative fluid ruby nce. She still has significant amount of edema in lower extremities bilaterally and on examination she continues to have crackers in the lung bases. Underwent oxygen, the patient's pulse ox is 90%. The patient has no major electrolyte disturbances. Serum bicarbs of 26 and the patient's sodium is at 136. BUN is at 70 with a creatinine of 2.39 as the patient is a component of stage IV chronic kidney disease. No reported chest pain. Nausea reported angina or palpitation. The patient remains on DuoNeb about treatments around the clock regarding her COPD. Echocardiogram results are still pending for now. She is on Lasix 40 mg IV every 8 hours. Outpatient medication is a been ordered re trish. Nephrology on the case. The patient is a care home resident. 07/08/2021, the patient is in a negative fluid balance of 4 L while being on IV Lasix. Marked improvement clinically and the chest x-ray is also improving and there is improvement in the volume status. The patient remains on Lasix 40 mg IV every 8 hours. Leigh catheter still in place. Electrolytes show a sodium level of 137, BUN of 73 which is comparable and creatinine of 2.35 which is also comparable. Potassium level is at 4.5. Serum iron was low at 27. Echocardiogram was completed and the results were noted. In summary, the patient has a left ventricular function is mildly impaired with an ejection fraction of 45-50%. There is diastolic heart failure with moderate concentric LVH. RV is normal. Mild pulmonary hypertension. No other valvular abnormalities have been noted. Objective - Vital Signs Vital signs: Vital Signs Temp 97.7 F 07/08/21 08:00 Pulse 83 07/08/21 08:00 Resp 18 07/08/21 08:00 BP 134/81 07/08/21 08:00 Pulse Ox 100 07/08/21 08:00 FiO2 Intake & Output 07/07/21 07/08/21 07/08/21 18:59 06:59 18:59 Intake Total 600 120 0 Output Total 1450 1650 Balance -850 -1530 0 Weight 122.7 kg 122.1 kg Intake: Oral 600 120 0 Output: Urine 1450 1650 Uretheral (Leigh) 850 Other: Voiding Method Indwelling Catheter Indwelling Catheter # Bowel Movements 1 - Exam GENERAL EXAM: Alert, very pleasant, 61-year-old white female, morbidly obese, resting comfortably and the patient is currently on 3 liters of oxygen nasal cannula Head exam was generally normal. There was no scleral icterus or corneal arcus. Mucous membranes were moist THROAT: No erythema or exudates. NECK: No masses, no JVD, no thyroid enlargement, no adenopathy. CHEST: No chest wall deformity. Symmetrical expansion. LUNGS: Equal air entry with diminished breath sounds, with scattered rales at the bases CVS: Regular rate and rhythm, normal S1 and S2, no gallops, no murmurs, no rubs ABDOMEN: Soft, nontender. No hepatosplenomegaly, normal bowel sounds, no guarding or rigidity. EXTREMITIES: No clubbing, 1+ lower extremity edema, bilateral lower extremities are kodak wrapped, no cyanosis, 2+ pulses and upper and lower extremities. MUSCULOSKELETAL: Muscle strength and tone normal. SPINE: No scoliosis or deformity SKIN: No rashes CENTRAL NERVOUS SYSTEM: Alert and oriented -3. No focal deficits, tone is normal in all 4 extremities. PSYCHIATRIC: Alert and oriented -3. Appropriate affect. Intact judgment and insight. - Labs CBC & Chem 7: 07/07/21 08:42 07/08/21 08:46 Labs: Abnormal Lab Results - Last 24 Hours (Table) 07/07/21 07/07/21 07/07/21 Range/Units 08:42 08:42 11:48 RBC 2.73 L (3.80-5.40) m/uL Hgb 7.9 L (11.4-16.0) gm/dL Hct 27.0 L (34.0-46.0) % MCHC 29.1 L (31.0-37.0) g/dL RDW 16.1 H (11.5-15.5) % Neutrophils # 8.3 H (1.3-7.7) k/uL BUN (7-17) mg/dL Creatinine (0.52-1.04) mg/dL Glucose (74-99) mg/dL POC Glucose (mg/dL) 256 H (75-99) mg/dL Calcium (8.4-10.2) mg/dL Iron 27 L (50-170) ug/dL % Saturation 9.76 L (12.00-45.00) Transferrin 194.0 L (204.0-354.0) mg/dL 07/07/21 07/07/21 07/08/21 Range/Units 16:36 19:30 05:19 RBC (3.80-5.40) m/uL Hgb (11.4-16.0) gm/dL Hct (34.0-46.0) % MCHC (31.0-37.0) g/dL RDW (11.5-15.5) % Neutrophils # (1.3-7.7) k/uL BUN (7-17) mg/dL Creatinine (0.52-1.04) mg/dL Glucose (74-99) mg/dL POC Glucose (mg/dL) 312 H 290 H 148 H (75-99) mg/dL Calcium (8.4-10.2) mg/dL Iron (50-170) ug/dL % Saturation (12.00-45.00) Transferrin (204.0-354.0) mg/dL 07/08/21 07/08/21 Range/Units 08:46 12:11 RBC (3.80-5.40) m/uL Hgb (11.4-16.0) gm/dL Hct (34.0-46.0) % MCHC (31.0-37.0) g/dL RDW (11.5-15.5) % Neutrophils # (1.3-7.7) k/uL BUN 73 H (7-17) mg/dL Creatinine 2.34 H (0.52-1.04) mg/dL Glucose 103 H (74-99) mg/dL POC Glucose (mg/dL) 108 H (75-99) mg/dL Calcium 8.1 L (8.4-10.2) mg/dL Iron (50-170) ug/dL % Saturation (12.00-45.00) Transferrin (204.0-354.0) mg/dL Assessment and Plan Plan: Assessment: #1. Acute hypoxic respiratory failure related to acute exacerbation of diastolic CHF lung with a massive fluid overload currently on Lasix and the patient is a negative fluid balance. #2. Chronic COPD, severe, probably stage IV at this point, baseline FEV1 of 0.76 or 31% of predicted as of 2018 #3. Ex-smoker, carries [id number] smoking history, in remission for last one year #4. Morbid obesity with BMI of 46.8 kg/m #5. Obstructive sleep apnea syndrome #6. Hypertension #7. Hyperlipidemia #8. Osteoarthritis #9. Peripheral vascular disease with previous intervention and total amputation #10. History of wounds and lower extremity #11. Hypothyroidism #12. History of fibromyalgia #13. History of chronic anemia with iron deficiency, related to antral gastritis based on the recent EGD/colonoscopy from 06/23/2021 #14. History of chronic kidney disease stage IV Plan: Continue IV diuretics, the patient is maintained on Lasix 40 mg every 8 hours. We will monitor the fluid balance in the lower extremity edema. We'll closely monitor renal function also. Patient has been at least 4 L negative fluid balance over the past 24 hours. Clinically improving Chest x-ray improving Keep the Leigh catheter in place Monitor renal function was essentially stable for now Echo was noted and the patient is mild impairment of LV function and diastolic heart failure, no significant pulmonary hypertension or right-sided failure at this point in time
[2021-07-08 17:04] LABS: Glucose,Whole Blood 203 mg/dL (75-99)
[2021-07-08 21:08] LABS: Glucose,Whole Blood 249 mg/dL (75-99)
[2021-07-08] MEDS: INSULIN DETEMIR (LEVEMIR) 100 UNIT/ML SYR SQ SCH (22:11)
[2021-07-08] MEDS: ATORVASTATIN 10 MG TAB PO SCH (22:11)
[2021-07-09 06:05] LABS: Glucose,Whole Blood 235 mg/dL (75-99)
[2021-07-09] MEDS: LEVOTHYROXINE 88 MCG TAB PO SCH (06:22)
[2021-07-09] MEDS: carvediloL 6.25 MG TAB PO SCH ×2 (06:22→17:26)
[2021-07-09] MEDS: INSULIN ASPART (NovoLOG) 100 UNIT/ML VIAL SQ SCH ×4 (06:22→21:52)
[2021-07-09] MEDS: PANTOPRAZOLE 40 MG TABLET PO SCH (06:22)
[2021-07-09] MEDS: IPRATROPIUM-ALBUTEROL 3 ML NEB INHALATION SCH ×4 (07:18→20:40)
[2021-07-09] MEDS: CLOPIDOGREL 75 MG TAB PO SCH (08:39)
[2021-07-09] MEDS: LINAGLIPTIN 5 MG TABLET PO SCH (08:39)
[2021-07-09] MEDS: hydrALAZINE HCL 50 MG TAB PO SCH ×3 (08:39→21:51)
[2021-07-09] MEDS: DULoxetine HCL 30 MG CAPSULE.DR PO SCH (08:39)
[2021-07-09] MEDS: SODIUM FERRIC GLUCONAT-SUCROSE 125 MG in SODIUM CHLORIDE 0.9% 100 ML IVPB SCH (08:40)
[2021-07-09] MEDS: NITROGLYCERIN OINT 1 INCH/GM PACKET TOPICAL SCH ×4 (08:40→21:52)
[2021-07-09] MEDS: FUROSEMIDE 10 MG/ML 4 ML VIAL IV SCH ×3 (08:40→21:52)
--- NOTE | 2021-07-09 09:01 | P.PN ---
Subjective Patient is seen for follow-up for chronic kidney disease. Renal function has been fairly stable. Patient is being treated for volume overload. Currently maintained on IV Lasix. No significant issues overnight. Maintained on 2 L nasal cannula Good urine output Labs pending from today. No shortness of breath. Objective - Vital Signs Vital signs: Vital Signs Temp 98.3 F 07/09/21 04:00 Pulse 76 07/09/21 07:30 Resp 18 07/09/21 04:00 BP 128/74 07/09/21 04:00 Pulse Ox 100 07/09/21 04:00 FiO2 21 07/08/21 20:36 Intake & Output 07/08/21 07/09/21 07/09/21 18:59 06:59 18:59 Intake Total 240 360 Output Total 1300 3200 Balance -1060 -2840 Weight 118.4 kg Intake: Oral 240 360 Output: Urine 1300 3200 Uretheral (Leigh) 3200 Other: Voiding Method Indwelling Catheter Indwelling Catheter # Voids 0 - Exam Awake, comfortable, not in any acute distress Exec alert oriented 3 Examination of the heart S1 and S2 Examination lungs bilateral breath sounds are heard Abdomen is soft nontender Examination of the lower extremities shows chronic edema with chronic skin changes. Both legs are currently wrapped. [employer]ICAL N[employer]SING TE[employer]ER exam grossly intact - Labs CBC & Chem 7: 07/07/21 08:42 07/08/21 08:46 Labs: Abnormal Lab Results - Last 24 Hours (Table) 07/08/21 07/08/21 07/08/21 Range/Units 08:46 12:11 17:02 BUN 73 H (7-17) mg/dL Creatinine 2.34 H (0.52-1.04) mg/dL Glucose 103 H (74-99) mg/dL POC Glucose (mg/dL) 108 H 203 H (75-99) mg/dL Calcium 8.1 L (8.4-10.2) mg/dL 07/08/21 07/09/21 Range/Units 21:02 05:58 BUN (7-17) mg/dL Creatinine (0.52-1.04) mg/dL Glucose (74-99) mg/dL POC Glucose (mg/dL) 249 H 235 H (75-99) mg/dL Calcium (8.4-10.2) mg/dL Assessment and Plan Assessment: 1. CK D stage IV secondary to diabetic kidney disease with baseline creatinine 2.2-2.3 mg/dL. No evidence of obstruction on ultrasound in June 2021. 2. Volume overload currently being diuresed and slowly improving 3. Acute hypoxic respiratory failure from above, currently improving 4. Type 2 diabetes 5. Hypertension with CK D 6. Anemia of chronic disease with iron deficiency currently receiving IV iron 7. Acute on chronic diastolic CHF Plan: Continue to diurese patient Maintain salt and fluid restriction Avoid hypotension
[2021-07-09 10:08] LABS: Calcium 8.3 mg/dL (8.4-10.2); Magnesium 1.7 mg/dL (1.6-2.3); Potassium 4.9 mmol/L (3.5-5.1)
[2021-07-09 12:03] LABS: Glucose,Whole Blood 292 mg/dL (75-99)
--- NOTE | 2021-07-09 12:26 | P.PN ---
Subjective Progress Note Date: 07/09/21 This is a 61-year-old female patient with multiple chronic medical conditions i ncluding severe COPD, and her last PFT from 2018 showed FEV1 of 0.76 or 31% of predicted, with FVC of 36% of predicted, and severe diffusion abnormality, patient is a former smoker, quit smoking a year ago, but does carry a [id number] smoking history, she states she is not oxygen dependent at base line, she also has history of chronic CHF, obstructive sleep apnea syndrome, morbid obesity, diabetes mellitus type 2 with diabetic neuropathy, chronic kidney disease, hypertension, hyperlipidemia, peripheral vascular disease with previous intervention, and toes amputated, and history of wounds on the right lower extremity. Patient used to follow with Dr. Huang in the pulmonary office, however has not been back to see him since 2018. On 07/05/2021 patient came into the ER for evaluation of 40 pound weight gain, increased lower extremity edema and worsening shortness of breath for the past 3 days. [facility] a [facility] She was started on oxygen there. She denied any fever or chills, no cough, no phlegm production, no hemoptysis, no complaints of chest discomfort. Chest x-ray in emergency department showed cardiomegaly with COPD, diffuse interstitial opacities, mild patchy bibasilar opacities, curly B-lines, no sizable pleural effusion. Vital signs have been stable, patient is satting 98% on 3 L, lab work showed normal white count of 8.5, hemoglobin of 8.2, plate let count of 229, INR of 0.9, electrolytes within normal limits, BUN of 60 creatinine of 2.17, lactic acid 0.5, troponin I 0.022, 0.020, and 0.019, proBNP is 11,002 100. LFTs were within normal limits. Patient was started on IV diuretics, breathing treatments, she was given one-time dose of IV Solu-Medrol. Nephrology and cardiology are on board. And we were consulted for acute exacerbation of COPD related to acute exacerbation of CHF On 07/07/2021, seeing the patient for a follow-up. The patient is doing well. The patient is being diuresis and the patient seems to be negative fluid ruby nce. She still has significant amount of edema in lower extremities bilaterally and on examination she continues to have crackers in the lung bases. Underwent oxygen, the patient's pulse ox is 90%. The patient has no major electrolyte disturbances. Serum bicarbs of 26 and the patient's sodium is at 136. BUN is at 70 with a creatinine of 2.39 as the patient is a component of stage IV chronic kidney disease. No reported chest pain. Nausea reported angina or palpitation. The patient remains on DuoNeb about treatments around the clock regarding her COPD. Echocardiogram results are still pending for now. She is on Lasix 40 mg IV every 8 hours. Outpatient medication is a been ordered re trish. Nephrology on the case. The [facility] is a [facility]. 07/08/2021, the patient is in a negative fluid balance of 4 L while being on IV Lasix. Marked improvement clinically and the chest x-ray is also improving and there is improvement in the volume status. The patient remains on Lasix 40 mg IV every 8 hours. Leigh catheter still in place. Electrolytes show a sodium level of 137, BUN of 73 which is comparable and creatinine of 2.35 which is also comparable. Potassium level is at 4.5. Serum iron was low at 27. Echocardiogram was completed and the results were noted. In summary, the patient has a left ventricular function is mildly impaired with an ejection fraction of 45-50%. There is diastolic heart failure with moderate concentric LVH. RV is normal. Mild pulmonary hypertension. No other valvular abnormalities have been noted. 07/09/2021, the patient is improving and the patient is producing excess amount of urine output with IV Lasix. The fluid balance has been negative in order of 3 L over the past 24 hours. BUN is at 73 with a creatinine of 2.2. Sodium is at 139. No new complaints in the worsening shortness of breath. The patient remains on room air oxygen. Hemodynamically stable. No other significant events overnight. Electrodes are being monitored that the patient is being diuresis." The heart was also noted. Objective - Vital Signs Vital signs: Vital Signs Temp 97.1 F L 07/09/21 07:50 Pulse 72 07/09/21 07:50 Resp 18 07/09/21 07:50 BP 141/87 07/09/21 07:50 Pulse Ox 98 07/09/21 07:50 FiO2 21 07/08/21 20:36 Intake & Output 05/07/09/21 07/09/21 18:59 06:59 18:59 Intake Total 240 360 Output Total 1300 3200 Balance -1060 -2840 Weight 118.4 kg Intake: Oral 240 360 Output: Urine 1300 3200 Uretheral (Leigh) 3200 Other: Voiding Method Indwelling Catheter Indwelling Catheter Indwelling Catheter # Voids 0 - Exam GENERAL EXAM: Alert, very pleasant, 61-year-old white female, morbidly obese, resting comfortably and the patient is currently on room air oxygen Head exam was generally normal. There was no scleral icterus or corneal arcus. Mucous membranes were moist THROAT: No erythema or exudates. NECK: No masses, no JVD, no thyroid enlargement, no adenopathy. CHEST: No chest wall deformity. Symmetrical expansion. LUNGS: Equal air entry with diminished breath sounds, with scattered rales at the bases CVS: Regular rate and rhythm, normal S1 and S2, no gallops, no murmurs, no rubs ABDOMEN: Soft, nontender. No hepatosplenomegaly, normal bowel sounds, no guarding or rigidity. EXTREMITIES: No clubbing, 1+ lower extremity edema, bilateral lower extremities are kodak wrapped, no cyanosis, 2+ pulses and upper and lower extremities. MUSCULOSKELETAL: Muscle strength and tone normal. SPINE: No scoliosis or deformity SKIN: No rashes CENTRAL NERVOUS SYSTEM: Alert and oriented -3. No focal deficits, tone is normal in all 4 extremities. PSYCHIATRIC: Alert and oriented -3. Appropriate affect. Intact judgment and insight. - Labs CBC & Chem 7: 07/07/21 08:42 07/09/21 09:11 Labs: Abnormal Lab Results - Last 24 Hours (Table) 07/08/21 07/08/21 07/08/21 Range/Units 12:11 17:02 21:02 POC Glucose (mg/dL) 108 H 203 H 249 H (75-99) mg/dL 07/09/21 Range/Units 05:58 POC Glucose (mg/dL) 235 H (75-99) mg/dL Assessment and Plan Plan: Assessment: #1. Acute hypoxic respiratory failure related to acute exacerbation of diastolic CHF lung with a massive fluid overload currently on Lasix and the patient is a negative fluid balance. The patient is still on IV Lasix with excellent response #2. Chronic COPD, severe, probably stage IV at this point, baseline FEV1 of 0.76 or 31% of predicted as of 2018 #3. Ex-smoker, carries [id number] smoking history, in remission for last one year #4. Morbid obesity with BMI of 46.8 kg/m #5. Obstructive sleep apnea syndrome #6. Hypertension #7. Hyperlipidemia #8. Osteoarthritis #9. Peripheral vascular disease with previous intervention and total amputation #10. History of wounds and lower extremity #11. Hypothyroidism #12. History of fibromyalgia #13. History of chronic anemia with iron deficiency, related to antral g astritis based on the recent EGD/colonoscopy from 06/23/2021 #14. History of chronic kidney disease stage IV Plan: Continue IV diuretics, the patient is maintained on Lasix 40 mg every 8 hours. Clinically the patient is responding and there is improvement in lower extremity edema. The patient is in a negative fluid balance of 3 L over the past 24 hours We will monitor the fluid balance in the lower extremity edema. We'll closely monitor renal function also. Clinically improving Chest x-ray improving Keep the Leigh catheter in place Monitor renal function was essentially stable for now Echo was noted and the patient is mild impairment of LV function and diastolic heart failure, no significant pulmonary hypertension or right-sided failure at this point in time Monitor x-ray today kidney function is stable We'll continue to follow
--- NOTE | 2021-07-09 14:17 | P.PN ---
Subjective HISTORY OF PRESENT ILLNESS: 07/06/2021 This is a 61-year-old female with history of obesity, severe COPD with EF the V1 of 0.76 and also severe diffusing abnormality, diastolic CHF, diabetes mellitus, and also chronic kidney disease and previous peripheral vascular disease with interventions, is sent from [facility] with complaints of weight gain and shortness of breath. Patient developed pain several pounds. Her chest x-ray showed evidence of CHF. Her proBNP is more than 10,000. Her hemoglobin is 8 which is chronic. She is also has elevated creatinine consistent with moderate to severe kidney disease. Patient is initiated on IV diuretics. No complaints of any chest pain or palpitation and EKG showed sinus rhythm. Patient is evaluated by nephrology and pulmonology. We'll continue current medical therapy along with inhalers and other treatments. Prognosis is guarded. Further recommended lipid upon the chemical course. In the past, Echocardiogram showed normal LV function. We'll repeat the echocardiogram 07/07/2021 Patient examined this morning at the bedside. Patient denies chest pain or pressure. She remains on IV Lasix. She reports improvement in her shortness of breath. blood pressure 113/67. 07/08/2021 Patient examined this morning at the bedside. Patient denies chest pain or pressure. Reports improving SOB. She remains on IV lasix. Chest x-ray this morning reveals cardia megaly with persistent interstitial edema and small to tiny left pleural effusion. Echocardiogram completed revealing ejection fractio n 45-50%, moderate LVH, mild pulmonary hypertension, [id number] mitral regurgitation, and mild tricuspid regurgitation 07/09 Patient seen and examined. Remains on diuretics and admits has been having good urine output. Cr 2.2 today down from 2.3. PHYSICAL EXAM: VITAL SIGNS: Reviewed. GENERAL: Well-developed in no acute distress. NECK: Supple. No JVD or thyromegaly LUNGS: Respirations even and unlabored. Lungs diminished auscultation bilaterally. HEART: Regular rate and rhythm. S1 and S2 heard. EXTREMITIES: Normal range of motion. No clubbing or cyanosis. Peripheral pulses intact. Bilateral lower extremity edema ASSESSMENT: acute on chronic congestive heart failure with preserved ejection fraction, borderline to intermediate, EF 45-50% COPD exacerbation Hypertension Hyperlipidemia Peripheral vascular disease Chronic kidney disease Former nicotine dependence Obstructive sleep apnea PLAN: Continue IV Lasix Monitor kidney function. Nephrology following Daily weights Accurate I&O Further recommendations pending patient course Objective - Vital Signs Vital signs: Vital Signs Temp 97.1 F L 07/09/21 07:50 Pulse 72 07/09/21 11:07 Resp 18 07/09/21 07:50 BP 141/87 07/09/21 07:50 Pulse Ox 98 07/09/21 07:50 FiO2 21 07/08/21 20:36 Intake & Output 07/08/21 07/09/21 07/09/21 18:59 06:59 18:59 Intake Total 240 360 240 Output Total 1300 3200 450 Balance -1060 -2840 -210 Weight 118.4 kg Intake: Oral 240 360 240 Output: Urine 1300 3200 450 Uretheral (Leigh) 3200 Other: Voiding Method Indwelling Catheter Indwelling Catheter Indwelling Catheter # Voids 0 - Labs CBC & Chem 7: 07/07/21 08:42 07/09/21 09:11 Labs: Abnormal Lab Results - Last 24 Hours (Table) 07/08/21 07/08/21 07/09/21 Range/Units 17:02 21:02 05:58 BUN (7-17) mg/dL Creatinine (0.52-1.04) mg/dL Glucose (74-99) mg/dL POC Glucose (mg/dL) 203 H 249 H 235 H (75-99) mg/dL Calcium (8.4-10.2) mg/dL 07/09/21 07/09/21 Range/Units 09:11 12:02 BUN 73 H (7-17) mg/dL Creatinine 2.22 H (0.52-1.04) mg/dL Glucose 244 H (74-99) mg/dL POC Glucose (mg/dL) 292 H (75-99) mg/dL Calcium 8.3 L (8.4-10.2) mg/dL
[2021-07-09 16:55] LABS: Glucose,Whole Blood 259 mg/dL (75-99)
--- NOTE | 2021-07-09 19:10 | P.PN ---
Subjective Progress Note Date: 07/08/21 61-year-old female, history of COPD, diabetes mellitus, hypertension, hyperlipidemia, hypothyroidism, presents because of dyspnea Patient is awake and alert but somewhat confused, she thinks she is in [facility], she knew it is 2021 but thought it is July and she could not tell the day, but she knew the president. She needs to remind her with some inflammation. She came from skilled nursing. She is poor historian and information were obtained also from staff records. From [facility], pt had COPD and CHF exacerbation 1 month ago. Pt has gained 40lbs since discharge. Pt also states that she has been short of breath x 3 days. Pt was placed on 2 L 2 days ago for SOB. Pt sp02 was 92% on EMS arrival. She's been complaining of from dyspnea but no chest pain with little cough with no phlegm. She denies diarrhea or vomiting. She complains from some dysuria. Her vitals are stable and she is saturating 93% on 3 L oxygen via nasal cannula. hemoglobin of 8.2, wbc of 8.5, platelet count normal. inr 0.9, creatinine is 2.1, compared to baseline of 2.0-2.3. Serial troponin are negative at 0.02 and 0.019. ProBNP is slightly increased 8290 up to 11,200 his x-ray showing COPD, mild cardiomegaly and possible some mild congestion when reviewed by me. EKG showing normal sinus rhythm at [address]-T changes. In ED patient received IV Lasix and Solu-Medrol Objective - Vital Signs Vital signs: Vital Signs Temp 97.7 F 07/08/21 08:00 Pulse 83 07/08/21 08:00 Resp 18 07/08/21 08:00 BP 134/81 07/08/21 08:00 Pulse Ox 100 07/08/21 08:00 FiO2 Intake & Output 07/07/21 07/08/21 07/08/21 18:59 06:59 18:59 Intake Total 600 120 0 Output Total 1450 1650 Balance -850 -1530 0 Weight 122.7 kg 122.1 kg Intake: Oral 600 120 0 Output: Urine 1450 1650 Uretheral (Leigh) 850 Other: Voiding Method Indwelling Catheter Indwelling Catheter # Bowel Movements 1 - Exam GENERAL: The patient is alert and oriented x3, not in any acute distress. Well developed, well nourished. HEENT: Pupils are round and equally reacting to light. EOMI. No scleral icterus. No conjunctival pallor. Normocephalic, atraumatic. No pharyngeal erythema. No thyromegaly. CARDIOVASCULAR: S1 and S2 present. No murmurs, rubs, or gallops. -PULMONARY: Chest is clear to auscultation, no wheezing. Mild Bilateral basal crepitation, but has decreased air entry on both sides ABDOMEN: Soft, nontender, nondistended, normoactive bowel sounds. No palpable organomegaly. MUSCULOSKELETAL: No joint swelling or deformity. -EXTREMITIES: No cyanosis, clubbing,. Bilateral pitting leg edema, 2+ NEUROLOGICAL: Gross neurological examination did not reveal any focal deficits. SKIN: No rashes. no petechiae. - Labs CBC & Chem 7: 07/07/21 08:42 07/09/21 09:11 Labs: Abnormal Lab Results - Last 24 Hours (Table) 07/07/21 07/07/21 07/07/21 Range/Units 08:42 08:42 11:48 RBC 2.73 L (3.80-5.40) m/uL Hgb 7.9 L (11.4-16.0) gm/dL Hct 27.0 L (34.0-46.0) % MCHC 29.1 L (31.0-37.0) g/dL RDW 16.1 H (11.5-15.5) % Neutrophils # 8.3 H (1.3-7.7) k/uL BUN (7-17) mg/dL Creatinine (0.52-1.04) mg/dL Glucose (74-99) mg/dL POC Glucose (mg/dL) 256 H (75-99) mg/dL Calcium (8.4-10.2) mg/dL Iron 27 L (50-170) ug/dL % Saturation 9.76 L (12.00-45.00) Transferrin 194.0 L (204.0-354.0) mg/dL 07/07/21 07/07/21 07/08/21 Range/Units 16:36 19:30 05:19 RBC (3.80-5.40) m/uL Hgb (11.4-16.0) gm/dL Hct (34.0-46.0) % MCHC (31.0-37.0) g/dL RDW (11.5-15.5) % Neutrophils # (1.3-7.7) k/uL BUN (7-17) mg/dL Creatinine (0.52-1.04) mg/dL Glucose (74-99) mg/dL POC Glucose (mg/dL) 312 H 290 H 148 H (75-99) mg/dL Calcium (8.4-10.2) mg/dL Iron (50-170) ug/dL % Saturation (12.00-45.00) Transferrin (204.0-354.0) mg/dL 07/08/21 07/08/21 Range/Units 08:46 12:11 RBC (3.80-5.40) m/uL Hgb (11.4-16.0) gm/dL Hct (34.0-46.0) % MCHC (31.0-37.0) g/dL RDW (11.5-15.5) % Neutrophils # (1.3-7.7) k/uL BUN 73 H (7-17) mg/dL Creatinine 2.34 H (0.52-1.04) mg/dL Glucose 103 H (74-99) mg/dL POC Glucose (mg/dL) 108 H (75-99) mg/dL Calcium 8.1 L (8.4-10.2) mg/dL Iron (50-170) ug/dL % Saturation (12.00-45.00) Transferrin (204.0-354.0) mg/dL Assessment and Plan Assessment: Acute CHF exacerbation COPD, stable with no exacerbation currently Dysuria, rule out urinary tract infection Chronic kidney disease, stage IV. Hyperlipidemia Hypertension Hypothyroidism Chronic leukocytosis Morbid obesity, BMI 46.8 This is a pleasant 61 years old female who presents with COPD and CHF continue with Solu-Medrol, recent treatment bronchodilator Continue with IV Lasix Check urinalysis and bladder scan Monitor creatinine and input and output. Follow-up consult The Case, Cardiology, Nephrology and Pulmonology There were large her Levemir 20 units down to 10 units for now, continue with insulin sliding scale Labs and medication were reviewed.. Continue same treatment. Continue with symptomatic treatment. Resume home medication. Monitor lytes and vitals. DVT and GI prophylaxis. Further recommendations as per clinical course of the patient DVT prophylaxis: Subcutaneous heparin GI Prophylaxis: Ppi Prognosis is guarded
--- NOTE | 2021-07-09 19:13 | P.PN ---
Subjective Progress Note Date: 07/09/21 Principal diagnosis: Acute CHF exacerbation 61-year-old female, history of COPD, diabetes mellitus, hypertension, hyperlipidemia, hypothyroidism, presents because of dyspnea Patient is awake and alert but somewhat confused, she thinks she is in [facility], she knew it is 2021 but thought it is July and she could not tell the day, but she knew the president. She needs to remind her with some inflammation. She came from [facility]. She is poor historian and information were obtained also from staff records. From [facility], pt had COPD and CHF exacerbation 1 month ago. Pt has gained 40lbs since discharge. Pt also states that she has been short of breath x 3 days. Pt was placed on 2 L 2 days ago for SOB. Pt sp02 was 92% on EMS arrival. She's been complaining of from dyspnea but no chest pain with little cough with no phlegm. She denies diarrhea or vomiting. She complains from some dysuria. Her vitals are stable and she is saturating 93% on 3 L oxygen via nasal cannula. hemoglobin of 8.2, wbc of 8.5, platelet count normal. inr 0.9, creatinine is 2.1, compared to baseline of 2.0-2.3. Serial troponin are negative at 0.02 and 0.019. ProBNP is slightly increased 8290 up to 11,200 his x-ray showing COPD, mild cardiomegaly and possible some mild congestion when reviewed by me. EKG showing normal sinus rhythm at [address]-T changes. In ED patient received IV Lasix and Solu-Medrol 07/09/2021 Patient is seen and evaluated sitting up in bedside chair; family members present in the room; all of patient's and family's questions were answered to their satisfaction the patient is improving and the patient is producing excess amount of urine output with IV Lasix. The fluid balance has been negative in order of 3 L over the past 24 hours. BUN is at 73 with a creatinine of 2.2. Sodium is at 139. No new complaints in the worsening shortness of breath. The patient remains on room air oxygen. Hemodynamically stable. No other significant events overnight. Electrodes are being monitored that the patient is being diuresis." Continue IV diuretics, the patient is maintained on Lasix 40 mg every 8 hours. Clinically the patient is responding and there is improvement in lower extremity edema. The patient is in a negative fluid balance of 3 L over the past 24 hours We will monitor the fluid balance in the lower extremity edema. We'll closely monitor renal function Objective - Vital Signs Vital signs: Vital Signs Temp 97.1 F L 07/09/21 07:50 Pulse 72 07/09/21 11:07 Resp 18 07/09/21 07:50 BP 141/87 07/09/21 07:50 Pulse Ox 98 07/09/21 07:50 FiO2 21 07/08/21 20:36 Intake & Output 07/08/21 07/09/21 07/09/21 18:59 06:59 18:59 Intake Total 240 360 240 Output Total 1300 3200 450 Balance -1060 -2840 -210 Weight 118.4 kg Intake: Oral 240 360 240 Output: Urine 1300 3200 450 Uretheral (Leigh) 3200 Other: Voiding Method Indwelling Catheter Indwelling Catheter Indwelling Catheter # Voids 0 - Exam GENERAL: The patient is alert and oriented x3, not in any acute distress. Well developed, well nourished. HEENT: Pupils are round and equally reacting to light. EOMI. No scleral icterus. No conjunctival pallor. Normocephalic, atraumatic. No pharyngeal erythema. No thyromegaly. CARDIOVASCULAR: S1 and S2 present. No murmurs, rubs, or gallops. -PULMONARY: Chest is clear to auscultation, no wheezing. Mild Bilateral basal crepitation, but has decreased air entry on both sides ABDOMEN: Soft, nontender, nondistended, normoactive bowel sounds. No palpable organomegaly. MUSCULOSKELETAL: No joint swelling or deformity. -EXTREMITIES: No cyanosis, clubbing,. Bilateral pitting leg edema, 2+ NEUROLOGICAL: Gross neurological examination did not reveal any focal deficits. SKIN: No rashes. no petechiae. - Labs CBC & Chem 7: 07/07/21 08:42 07/09/21 09:11 Labs: Abnormal Lab Results - Last 24 Hours (Table) 07/08/21 07/08/21 07/08/21 Range/Units 12:11 17:02 21:02 BUN (7-17) mg/dL Creatinine (0.52-1.04) mg/dL Glucose (74-99) mg/dL POC Glucose (mg/dL) 108 H 203 H 249 H (75-99) mg/dL Calcium (8.4-10.2) mg/dL 07/09/21 07/09/21 07/09/21 Range/Units 05:58 09:11 12:02 BUN 73 H (7-17) mg/dL Creatinine 2.22 H (0.52-1.04) mg/dL Glucose 244 H (74-99) mg/dL POC Glucose (mg/dL) 235 H 292 H (75-99) mg/dL Calcium 8.3 L (8.4-10.2) mg/dL Assessment and Plan Assessment: Acute CHF exacerbation COPD, stable with no exacerbation currently Dysuria, rule out urinary tract infection Chronic kidney disease, stage IV. Hyperlipidemia Hypertension Hypothyroidism Chronic leukocytosis Morbid obesity, BMI 46.8 This is a pleasant 61 years old female who presents with COPD and CHF continue with Solu-Medrol, recent treatment bronchodilator Continue with IV Lasix Check urinalysis and bladder scan Monitor creatinine and input and output. Follow-up consult The Case, Cardiology, Nephrology and Pulmonology There were large her Levemir 20 units down to 10 units for now, continue with insulin sliding scale Labs and medication were reviewed.. Continue same treatment. Continue with symptomatic treatment. Resume home medication. Monitor lytes and vitals. DVT and GI prophylaxis. Further recommendations as per clinical course of the patient DVT prophylaxis: Subcutaneous heparin GI Prophylaxis: Ppi Prognosis is guarded
[2021-07-09 21:16] LABS: Glucose,Whole Blood 238 mg/dL (75-99)
[2021-07-09] MEDS: ATORVASTATIN 10 MG TAB PO SCH (21:52)
[2021-07-09] MEDS: INSULIN DETEMIR (LEVEMIR) 100 UNIT/ML SYR SQ SCH (21:52)
[2021-07-10 06:03] LABS: Glucose,Whole Blood 219 mg/dL (75-99)
[2021-07-10] MEDS: PANTOPRAZOLE 40 MG TABLET PO SCH (06:23)
[2021-07-10] MEDS: INSULIN ASPART (NovoLOG) 100 UNIT/ML VIAL SQ SCH ×4 (06:23→20:56)
[2021-07-10] MEDS: LEVOTHYROXINE 88 MCG TAB PO SCH (06:23)
[2021-07-10] MEDS: carvediloL 6.25 MG TAB PO SCH ×2 (06:23→17:17)
[2021-07-10] MEDS: IPRATROPIUM-ALBUTEROL 3 ML NEB INHALATION SCH ×4 (07:51→19:54)
[2021-07-10] MEDS: DULoxetine HCL 30 MG CAPSULE.DR PO SCH (09:59)
[2021-07-10] MEDS: LINAGLIPTIN 5 MG TABLET PO SCH (09:59)
[2021-07-10] MEDS: SODIUM FERRIC GLUCONAT-SUCROSE 125 MG in SODIUM CHLORIDE 0.9% 100 ML IVPB SCH (09:59)
[2021-07-10] MEDS: CLOPIDOGREL 75 MG TAB PO SCH (09:59)
[2021-07-10] MEDS: NITROGLYCERIN OINT 1 INCH/GM PACKET TOPICAL SCH ×4 (09:59→20:57)
[2021-07-10] MEDS: hydrALAZINE HCL 50 MG TAB PO SCH ×3 (09:59→23:54)
[2021-07-10] MEDS: FUROSEMIDE 10 MG/ML 4 ML VIAL IV SCH ×3 (09:59→23:54)
--- NOTE | 2021-07-10 10:37 | P.PN ---
Subjective Patient is seen for follow-up for chronic kidney disease. Renal function has been fairly stable. Patient is being treated for volume overload. Currently maintained on IV Lasix. No significant issues overnight. Maintained on 2 L nasal cannula Good urine output Labs pending from today. Creatinine 2.2 yesterday. No shortness of breath. Objective - Vital Signs Vital signs: Vital Signs Temp 98.3 F 07/10/21 04:00 Pulse 76 07/10/21 08:01 Resp 18 07/10/21 04:00 BP 151/62 07/10/21 04:00 Pulse Ox 95 07/10/21 04:00 FiO2 21 07/09/21 20:40 Intake & Output 07/09/21 07/10/21 07/10/21 18:59 06:59 18:59 Intake Total 1180 120 240 Output Total 2149 2024 400 Balance -970 -1905 -160 Weight 116.4 kg Intake: Oral 1180 120 240 Output: Urine 2149 2024 400 Uretheral (Leigh) 1100 2024 Other: Voiding Method Indwelling Catheter Indwelling Catheter - Exam Awake, comfortable, not in any acute distress Exec alert oriented 3 Examination of the heart S1 and S2 Examination lungs bilateral breath sounds are heard Abdomen is soft nontender Examination of the lower extremities shows chronic edema with chronic skin changes. Both legs are currently wrapped. BILLING TYPIST exam grossly intact - Labs CBC & Chem 7: 07/07/21 08:42 07/09/21 09:11 Labs: Abnormal Lab Results - Last 24 Hours (Table) 07/09/21 07/09/21 07/09/21 Range/Units 12:02 16:54 21:07 POC Glucose (mg/dL) 292 H 259 H 238 H (75-99) mg/dL 07/10/21 Range/Units 06:01 POC Glucose (mg/dL) 219 H (75-99) mg/dL Assessment and Plan Assessment: 1. CK D stage IV secondary to diabetic kidney disease with baseline creatinine 2.2-2.3 mg/dL. No evidence of obstruction on ultrasound in June 2021. 2. Volume overload currently being diuresed and slowly improving 3. Acute hypoxic respiratory failure from above, currently improving 4. Type 2 diabetes 5. Hypertension with CK D 6. Anemia of chronic disease with iron deficiency currently receiving IV iron 7. Acute on chronic diastolic CHF Plan: Continue to diurese patient Maintain salt and fluid restriction Avoid hypotension
--- NOTE | 2021-07-10 11:42 | P.PN ---
Subjective Progress Note Date: 07/10/21 This is a 61-year-old female patient with multiple chronic medical conditions i ncluding severe COPD, and her last PFT from 2018 showed FEV1 of 0.76 or 31% of predicted, with FVC of 36% of predicted, and severe diffusion abnormality, patient is a former smoker, quit smoking a year ago, but does carry a [id number] smoking history, she states she is not oxygen dependent at base line, she also has history of chronic CHF, obstructive sleep apnea syndrome, morbid obesity, diabetes mellitus type 2 with diabetic neuropathy, chronic kidney disease, hypertension, hyperlipidemia, peripheral vascular disease with previous intervention, and toes amputated, and history of wounds on the right lower extremity. Patient used to follow with Dr. Huang in the pulmonary office, however has not been back to see him since 2018. On 07/05/2021 patient came into the ER for evaluation of 40 pound weight gain, increased lower extremity edema and worsening shortness of breath for the past 3 days. Patient is a resident of a local [facility]. She was started on oxygen there. She denied any fever or chills, no cough, no phlegm production, no hemoptysis, no complaints of chest discomfort. Chest x-ray in emergency department showed cardiomegaly with COPD, diffuse interstitial opacities, mild patchy bibasilar opacities, curly B-lines, no sizable pleural effusion. Vital signs have been stable, patient is satting 98% on 3 L, lab work showed normal white count of 8.5, hemoglobin of 8.2, plate let count of 229, INR of 0.9, electrolytes within normal limits, BUN of 60 creatinine of 2.17, lactic acid 0.5, troponin I 0.022, 0.020, and 0.019, proBNP is 11,002 100. LFTs were within normal limits. Patient was started on IV diuretics, breathing treatments, she was given one-time dose of IV Solu-Medrol. Nephrology and cardiology are on board. And we were consulted for acute exacerbation of COPD related to acute exacerbation of CHF On 07/07/2021, seeing the patient for a follow-up. The patient is doing well. The patient is being diuresis and the patient seems to be negative fluid ruby nce. She still has significant amount of edema in lower extremities bilaterally and on examination she continues to have crackers in the lung bases. Underwent oxygen, the patient's pulse ox is 90%. The patient has no major electrolyte disturbances. Serum bicarbs of 26 and the patient's sodium is at 136. BUN is at 70 with a creatinine of 2.39 as the patient is a component of stage IV chronic kidney disease. No reported chest pain. Nausea reported angina or palpitation. The patient remains on DuoNeb about treatments around the clock regarding her COPD. Echocardiogram results are still pending for now. She is on Lasix 40 mg IV every 8 hours. Outpatient medication is a been ordered re trish. Nephrology on the case. The patient is a halfway resident. 07/08/2021, the patient is in a negative fluid balance of 4 L while being on IV Lasix. Marked improvement clinically and the chest x-ray is also improving and there is improvement in the volume status. The patient remains on Lasix 40 mg IV every 8 hours. Leigh catheter still in place. Electrolytes show a sodium level of 137, BUN of 73 which is comparable and creatinine of 2.35 which is also comparable. Potassium level is at 4.5. Serum iron was low at 27. Echocardiogram was completed and the results were noted. In summary, the patient has a left ventricular function is mildly impaired with an ejection fraction of 45-50%. There is diastolic heart failure with moderate concentric LVH. RV is normal. Mild pulmonary hypertension. No other valvular abnormalities have been noted. 07/09/2021, the patient is improving and the patient is producing excess amount of urine output with IV Lasix. The fluid balance has been negative in order of 3 L over the past 24 hours. BUN is at 73 with a creatinine of 2.2. Sodium is at 139. No new complaints in the worsening shortness of breath. The patient remains on room air oxygen. Hemodynamically stable. No other significant events overnight. Electrodes are being monitored that the patient is being diuresis." The heart was also noted. 07/10/2021, the patient's continues to diurese well with Lasix 40 mg every 8 hours. There is still significant amount of edema in the lower extremities bilaterally although it's improving. Fluid balance is negative. Electrolytes are still stable and the patient has had blood work yesterday which was a BUN of 73 and a creatinine of 2.2 and repeat electrodes from today are still pending. The fluid balance over the past 24 hours is -2.8 L. No shortness of breath and the patient sitting up on a chair and she is on room air oxygen for now. Objective - Vital Signs Vital signs: Vital Signs Temp 98.3 F 07/10/21 04:00 Pulse 76 07/10/21 08:01 Resp 18 07/10/21 04:00 BP 151/62 07/10/21 04:00 Pulse Ox 95 07/10/21 04:00 FiO2 21 07/09/21 20:40 Intake & Output 07/09/21 07/10/21 07/10/21 18:59 06:59 18:59 Intake Total 1180 120 240 Output Total 2149 2024 400 Balance -970 -1905 -160 Weight 116.4 kg Intake: Oral 1180 120 240 Output: Urine 2149 2024 400 Uretheral (Leigh) 1100 2024 Other: Voiding Method Indwelling Catheter Indwelling Catheter - Exam GENERAL EXAM: Alert, very pleasant, 61-year-old white female, morbidly obese, resting comfortably and the patient is currently on room air oxygen Head exam was generally normal. There was no scleral icterus or corneal arcus. Mucous membranes were moist THROAT: No erythema or exudates. NECK: No masses, no JVD, no thyroid enlargement, no adenopathy. CHEST: No chest wall deformity. Symmetrical expansion. LUNGS: Equal air entry with diminished breath sounds, with scattered rales at the bases CVS: Regular rate and rhythm, normal S1 and S2, no gallops, no murmurs, no rubs ABDOMEN: Soft, nontender. No hepatosplenomegaly, normal bowel sounds, no guarding or rigidity. EXTREMITIES: No clubbing, 1+ lower extremity edema, bilateral lower extremities are kodak wrapped, no cyanosis, 2+ pulses and upper and lower extremities. MUSCULOSKELETAL: Muscle strength and tone normal. SPINE: No scoliosis or deformity SKIN: No rashes CENTRAL NERVOUS SYSTEM: Alert and oriented -3. No focal deficits, tone is normal in all 4 extremities. PSYCHIATRIC: Alert and oriented -3. Appropriate affect. Intact judgment and insight. - Labs CBC & Chem 7: 07/07/21 08:42 07/09/21 09:11 Labs: Abnormal Lab Results - Last 24 Hours (Table) 07/09/21 07/09/21 07/09/21 Range/Units 12:02 16:54 21:07 POC Glucose (mg/dL) 292 H 259 H 238 H (75-99) mg/dL 07/10/21 Range/Units 06:01 POC Glucose (mg/dL) 219 H (75-99) mg/dL Assessment and Plan Plan: Assessment: #1. Acute hypoxic respiratory failure related to acute exacerbation of diastolic CHF lung with a massive fluid overload currently on Lasix and the patient is a negative fluid balance. The patient is still on IV Lasix with excellent response #2. Chronic COPD, severe, probably stage IV at this point, baseline FEV1 of 0.76 or 31% of predicted as of 2018 #3. Ex-smoker, carries [id number] smoking history, in remission for last one year #4. Morbid obesity with BMI of 46.8 kg/m #5. Obstructive sleep apnea syndrome #6. Hypertension #7. Hyperlipidemia #8. Osteoarthritis #9. Peripheral vascular disease with previous intervention and total amputation #10. History of wounds and lower extremity #11. Hypothyroidism #12. History of fibromyalgia #13. History of chronic anemia with iron deficiency, related to antral gastritis based on the recent EGD/colonoscopy from 06/23/2021 #14. History of chronic kidney disease stage IV Plan: Continue IV diuretics, the patient is maintained on Lasix 40 mg every 8 hours. Clinically the patient is responding and there is improvement in lower extremity edema. The patient is in a negative fluid balance of 3 L over the past 24 hours We will monitor the fluid balance in the lower extremity edema. Weight is down Lower extremity edema is improving We'll closely monitor renal function and the patient is awaiting labs from today and we'll keep the IV Lasix for another 24 hours Weight is at 116 kg
[2021-07-10 11:43] LABS: Glucose,Whole Blood 220 mg/dL (75-99)
--- NOTE | 2021-07-10 12:04 | P.PN ---
Subjective HISTORY OF PRESENT ILLNESS: 07/06/2021 This is a 61-year-old female with history of obesity, severe COPD with EF the V1 of 0.76 and also severe diffusing abnormality, diastolic CHF, diabetes mellitus, and also chronic kidney disease and previous peripheral vascular disease with interventions, is sent from [facility] with complaints of weight gain and shortness of breath. Patient developed pain several pounds. Her chest x-ray showed evidence of CHF. Her proBNP is more than 10,000. Her hemoglobin is 8 which is chronic. She is also has elevated creatinine consistent with moderate to severe kidney disease. Patient is initiated on IV diuretics. No complaints of any chest pain or palpitation and EKG showed sinus rhythm. Patient is evaluated by nephrology and pulmonology. We'll continue current medical therapy along with inhalers and other treatments. Prognosis is guarded. Further recommended lipid upon the chemical course. In the past, Echocardiogram showed normal LV function. We'll repeat the echocardiogram 07/07/2021 Patient examined this morning at the bedside. Patient denies chest pain or pressure. She remains on IV Lasix. She reports improvement in her shortness of breath. blood pressure 113/67. 07/08/2021 Patient examined this morning at the bedside. Patient denies chest pain or pressure. Reports improving SOB. She remains on IV lasix. Chest x-ray this morning reveals cardia megaly with persistent interstitial edema and small to tiny left pleural effusion. Echocardiogram completed revealing ejection fractio n 45-50%, moderate LVH, mild pulmonary hypertension, [id number] mitral regurgitation, and mild tricuspid regurgitation 07/09 Patient seen and examined. Remains on diuretics and admits has been having good urine output. Cr 2.2 today down from 2.3. 07/10 Patient seen and examined. Patient denies any chest pain or pressure. Has been maintained on the Lasix with approximately -3 L over the last 24 hours. PHYSICAL EXAM: VITAL SIGNS: Reviewed. GENERAL: Well-developed in no acute distress. NECK: Supple. No JVD or thyromegaly LUNGS: Respirations even and unlabored. Lungs diminished auscultation bilaterally. HEART: Regular rate and rhythm. S1 and S2 heard. EXTREMITIES: Normal range of motion. No clubbing or cyanosis. Peripheral pulses intact. Bilateral lower extremity edema ASSESSMENT: acute on chronic congestive heart failure with preserved ejection fraction, borderline to intermediate, EF 45-50% COPD exacerbation Hypertension Hyperlipidemia Peripheral vascular disease Chronic kidney disease Former nicotine dependence Obstructive sleep apnea PLAN: Continue IV Lasix Add dose of Zaroxolyn to help augment diuresis Monitor kidney function. Nephrology following Daily weights Accurate I&O Further recommendations pending patient course Objective - Vital Signs Vital signs: Vital Signs Temp 96.8 F L 07/10/21 08:00 Pulse 80 07/10/21 11:47 Resp 18 07/10/21 08:00 BP 121/56 07/10/21 08:00 Pulse Ox 95 07/10/21 08:00 FiO2 21 07/09/21 20:40 Intake & Output 07/09/21 07/10/21 07/10/21 18:59 06:59 18:59 Intake Total 1180 120 240 Output Total 2149 2024 400 Balance -970 -1905 -160 Weight 116.4 kg Intake: Oral 1180 120 240 Output: Urine 2149 2024 400 Uretheral (Leigh) 1100 2024 Other: Voiding Method Indwelling Catheter Indwelling Catheter Indwelling Catheter - Labs CBC & Chem 7: 07/07/21 08:42 07/09/21 09:11 Labs: Abnormal Lab Results - Last 24 Hours (Table) 07/09/21 07/09/21 07/09/21 Range/Units 12:02 16:54 21:07 POC Glucose (mg/dL) 292 H 259 H 238 H (75-99) mg/dL 07/10/21 07/10/21 Range/Units 06:01 11:42 POC Glucose (mg/dL) 219 H 220 H (75-99) mg/dL
[2021-07-10] MEDS: metOLazone 5 MG TAB PO SCH (13:45)
[2021-07-10 16:25] LABS: Glucose,Whole Blood 246 mg/dL (75-99)
--- NOTE | 2021-07-10 19:25 | P.PN ---
Subjective Progress Note Date: 07/10/21 Principal diagnosis: Acute CHF exacerbation 61-year-old female, history of COPD, diabetes mellitus, hypertension, hyperlipidemia, hypothyroidism, presents because of dyspnea Patient is awake and alert but somewhat confused, she thinks she is in [facility], she knew it is 2021 but thought it is July and she could not tell the day, but she knew the president. She needs to remind her with some inflammation. She came from care home. She is poor historian and information were obtained also from staff records. From [facility], pt had COPD and CHF exacerbation 1 month ago. Pt has gained 40lbs since discharge. Pt also states that she has been short of breath x 3 days. Pt was placed on 2 L 2 days ago for SOB. Pt sp02 was 92% on EMS arrival. She's been complaining of from dyspnea but no chest pain with little cough with no phlegm. She denies diarrhea or vomiting. She complains from some dysuria. Her vitals are stable and she is saturating 93% on 3 L oxygen via nasal cannula. hemoglobin of 8.2, wbc of 8.5, platelet count normal. inr 0.9, creatinine is 2.1, compared to baseline of 2.0-2.3. Serial troponin are negative at 0.02 and 0.019. ProBNP is slightly increased 8290 up to 11,200 his x-ray showing COPD, mild cardiomegaly and possible some mild congestion when reviewed by me. EKG showing normal sinus rhythm at [address]-T changes. In ED patient received IV Lasix and Solu-Medrol 07/09/2021 Patient is seen and evaluated sitting up in bedside chair; family members present in the room; all of patient's and family's questions were answered to their satisfaction the patient is improving and the patient is producing excess amount of urine output with IV Lasix. The fluid balance has been negative in order of 3 L over the past 24 hours. BUN is at 73 with a creatinine of 2.2. Sodium is at 139. No new complaints in the worsening shortness of breath. The patient remains on room air oxygen. Hemodynamically stable. No other significant events overnight. Electrodes are being monitored that the patient is being diuresis." Continue IV diuretics, the patient is maintained on Lasix 40 mg every 8 hours. Clinically the patient is responding and there is improvement in lower extremity edema. The patient is in a negative fluid balance of 3 L over the past 24 hours We will monitor the fluid balance in the lower extremity edema. We'll closely monitor renal function 07/10/2021 Patient is seen and evaluated sitting up in bed; denies any complaint of chest pain; report some improvement in shortness of Vital signs are reviewed and remained stable Patient remains on IV diuretic therapy in form of Lasix at 40 mg IV every 8 hours for acute on chronic CHF with preserved EF of 45-50%; cardiology recommending to add a dose of Zaroxolyn to help augment diuresis; continue to monitor daily weights and strict VANDANA's; patient has a negative fluid balance of 3 L over 24 hours Remains on bronchodilator nebulizer treatments for COPD exacerbation Objective - Vital Signs Vital signs: Vital Signs Temp 96.8 F L 07/10/21 08:00 Pulse 80 07/10/21 11:47 Resp 18 07/10/21 08:00 BP 121/56 07/10/21 08:00 Pulse Ox 95 07/10/21 08:00 FiO2 21 07/09/21 20:40 Intake & Output 07/09/21 07/10/21 07/10/21 18:59 06:59 18:59 Intake Total 1180 120 240 Output Total 2149 2024 400 Balance -970 -1905 -160 Weight 116.4 kg Intake: Oral 1180 120 240 Output: Urine 2149 2024 400 Uretheral (Leigh) 1100 2024 Other: Voiding Method Indwelling Catheter Indwelling Catheter Indwelling Catheter - Exam GENERAL: The patient is alert and oriented x3, not in any acute distress. Well developed, well nourished. HEENT: Pupils are round and equally reacting to light. EOMI. No scleral icterus. No conjunctival pallor. Normocephalic, atraumatic. No pharyngeal erythema. No thyromegaly. CARDIOVASCULAR: S1 and S2 present. No murmurs, rubs, or gallops. -PULMONARY: Chest is clear to auscultation, no wheezing. Mild Bilateral basal crepitation, but has decreased air entry on both sides ABDOMEN: Soft, nontender, nondistended, normoactive bowel sounds. No palpable organomegaly. MUSCULOSKELETAL: No joint swelling or deformity. -EXTREMITIES: No cyanosis, clubbing,. Bilateral pitting leg edema, 2+ NEUROLOGICAL: Gross neurological examination did not reveal any focal deficits. SKIN: No rashes. no petechiae. - Labs CBC & Chem 7: 07/07/21 08:42 07/09/21 09:11 Labs: Abnormal Lab Results - Last 24 Hours (Table) 07/09/21 07/09/21 07/10/21 Range/Units 16:54 21:07 06:01 POC Glucose (mg/dL) 259 H 238 H 219 H (75-99) mg/dL 07/10/21 Range/Units 11:42 POC Glucose (mg/dL) 220 H (75-99) mg/dL Assessment and Plan Assessment: Acute CHF exacerbation COPD, stable with no exacerbation currently Dysuria, rule out urinary tract infection Chronic kidney disease, stage IV. Hyperlipidemia Hypertension Hypothyroidism Chronic leukocytosis Morbid obesity, BMI 46.8 This is a pleasant 61 years old female who presents with COPD and CHF continue with Solu-Medrol, recent treatment bronchodilator Continue with IV Lasix Check urinalysis and bladder scan Monitor creatinine and input and output. Follow-up consult The Case, Cardiology, Nephrology and Pulmonology There were large her Levemir 20 units down to 10 units for now, continue with insulin sliding scale Labs and medication were reviewed.. Continue same treatment. Continue with symptomatic treatment. Resume home medication. Monitor lytes and vitals. DVT and GI prophylaxis. Further recommendations as per clinical course of the patient DVT prophylaxis: Subcutaneous heparin GI Prophylaxis: Ppi Prognosis is guarded
[2021-07-10 20:33] LABS: Glucose,Whole Blood 187 mg/dL (75-99)
[2021-07-10] MEDS: INSULIN DETEMIR (LEVEMIR) 100 UNIT/ML SYR SQ SCH (20:56)
[2021-07-10] MEDS: ATORVASTATIN 10 MG TAB PO SCH (20:56)
[2021-07-11 06:10] LABS: Glucose,Whole Blood 151 mg/dL (75-99)
[2021-07-11] MEDS: carvediloL 6.25 MG TAB PO SCH ×2 (06:33→17:08)
[2021-07-11] MEDS: LEVOTHYROXINE 88 MCG TAB PO SCH (06:33)
[2021-07-11] MEDS: PANTOPRAZOLE 40 MG TABLET PO SCH (06:33)
[2021-07-11] MEDS: INSULIN ASPART (NovoLOG) 100 UNIT/ML VIAL SQ SCH ×4 (06:33→20:52)
[2021-07-11] MEDS: IPRATROPIUM-ALBUTEROL 3 ML NEB INHALATION SCH ×4 (08:02→19:50)
[2021-07-11] MEDS: DULoxetine HCL 30 MG CAPSULE.DR PO SCH (08:43)
[2021-07-11] MEDS: CLOPIDOGREL 75 MG TAB PO SCH (08:43)
[2021-07-11] MEDS: SODIUM FERRIC GLUCONAT-SUCROSE 125 MG in SODIUM CHLORIDE 0.9% 100 ML IVPB SCH (08:43)
[2021-07-11] MEDS: FUROSEMIDE 10 MG/ML 4 ML VIAL IV SCH (08:43)
[2021-07-11] MEDS: NITROGLYCERIN OINT 1 INCH/GM PACKET TOPICAL SCH ×4 (08:44→23:39)
[2021-07-11] MEDS: metOLazone 5 MG TAB PO SCH (08:44)
[2021-07-11] MEDS: LINAGLIPTIN 5 MG TABLET PO SCH (08:48)
[2021-07-11] MEDS: hydrALAZINE HCL 50 MG TAB PO SCH ×3 (08:55→23:39)
[2021-07-11 10:15] LABS: Calcium 8.1 mg/dL (8.4-10.2); Potassium 4.1 mmol/L (3.5-5.1)
--- NOTE | 2021-07-11 10:20 | P.PN ---
Subjective Patient is seen for follow-up for chronic kidney disease. Renal function has been fairly stable. Patient is being treated for volume overload. Currently maintained on IV Lasix. No significant issues overnight. Maintained on 2 L nasal cannula Good urine output Creatinine 2.56 today No shortness of breath. Objective - Vital Signs Vital signs: Vital Signs Temp 98.2 F 07/11/21 08:42 Pulse 76 07/11/21 08:42 Resp 18 07/11/21 08:42 BP 99/64 07/11/21 08:42 Pulse Ox 93 L 07/11/21 08:42 FiO2 21 07/09/21 20:40 Intake & Output 07/10/21 07/11/21 07/11/21 18:59 06:59 18:59 Intake Total 240 1060 120 Output Total 900 1300 1000 Balance -660 -240 -880 Weight 115.7 kg Intake: Oral 240 1060 120 Output: Urine 900 1300 1000 Uretheral (Leigh) 1300 Other: Voiding Method Indwelling Catheter Indwelling Catheter - Exam Awake, comfortable, not in any acute distress Exec alert oriented 3 Examination of the heart S1 and S2 Examination lungs bilateral breath sounds are heard Abdomen is soft nontender Examination of the lower extremities shows chronic edema with chronic skin changes. Both legs are currently wrapped. SPORTS THERAPIST exam grossly intact - Labs CBC & Chem 7: 07/07/21 08:42 07/11/21 09:45 Labs: Abnormal Lab Results - Last 24 Hours (Table) 07/10/21 07/10/21 07/10/21 Range/Units 11:42 16:23 20:32 Sodium (137-145) mmol/L BUN (7-17) mg/dL Creatinine (0.52-1.04) mg/dL Glucose (74-99) mg/dL POC Glucose (mg/dL) 220 H 246 H 187 H (75-99) mg/dL Calcium (8.4-10.2) mg/dL 07/11/21 07/11/21 Range/Units 06:08 09:45 Sodium 135 L (137-145) mmol/L BUN 65 H (7-17) mg/dL Creatinine 2.56 H (0.52-1.04) mg/dL Glucose 195 H (74-99) mg/dL POC Glucose (mg/dL) 151 H (75-99) mg/dL Calcium 8.1 L (8.4-10.2) mg/dL Assessment and Plan Assessment: 1. CK D stage IV secondary to diabetic kidney disease with baseline creatinine 2.2-2.3 mg/dL. No evidence of obstruction on ultrasound in June 2021. 2. Volume overload currently being diuresed and slowly improving 3. Acute hypoxic respiratory failure from above, currently improving 4. Type 2 diabetes 5. Hypertension with CK D 6. Anemia of chronic disease with iron deficiency currently receiving IV iron 7. Acute on chronic diastolic CHF Plan: Agree with switching to oral diuretics Patient can be discharged from nephrology standpoint
--- NOTE | 2021-07-11 11:36 | P.PN ---
Subjective Progress Note Date: 07/11/21 This is a 61-year-old female patient with multiple chronic medical conditions i ncluding severe COPD, and her last PFT from 2018 showed FEV1 of 0.76 or 31% of predicted, with FVC of 36% of predicted, and severe diffusion abnormality, patient is a former smoker, quit smoking a year ago, but does carry a [id number] smoking history, she states she is not oxygen dependent at base line, she also has history of chronic CHF, obstructive sleep apnea syndrome, morbid obesity, diabetes mellitus type 2 with diabetic neuropathy, chronic kidney disease, hypertension, hyperlipidemia, peripheral vascular disease with previous intervention, and toes amputated, and history of wounds on the right lower extremity. Patient used to follow with Dr. Huang in the pulmonary office, however has not been back to see him since 2018. On 07/05/2021 patient came into the ER for evaluation of 40 pound weight gain, increased lower extremity edema and worsening shortness of breath for the past 3 days. Patient is a resident of a local [facility]. She was started on oxygen there. She denied any fever or chills, no cough, no phlegm production, no hemoptysis, no complaints of chest discomfort. Chest x-ray in emergency department showed cardiomegaly with COPD, diffuse interstitial opacities, mild patchy bibasilar opacities, curly B-lines, no sizable pleural effusion. Vital signs have been stable, patient is satting 98% on 3 L, lab work showed normal white count of 8.5, hemoglobin of 8.2, plate let count of 229, INR of 0.9, electrolytes within normal limits, BUN of 60 creatinine of 2.17, lactic acid 0.5, troponin I 0.022, 0.020, and 0.019, proBNP is 11,002 100. LFTs were within normal limits. Patient was started on IV diuretics, breathing treatments, she was given one-time dose of IV Solu-Medrol. Nephrology and cardiology are on board. And we were consulted for acute exacerbation of COPD related to acute exacerbation of CHF On 07/07/2021, seeing the patient for a follow-up. The patient is doing well. The patient is being diuresis and the patient seems to be negative fluid ruby nce. She still has significant amount of edema in lower extremities bilaterally and on examination she continues to have crackers in the lung bases. Underwent oxygen, the patient's pulse ox is 90%. The patient has no major electrolyte disturbances. Serum bicarbs of 26 and the patient's sodium is at 136. BUN is at 70 with a creatinine of 2.39 as the patient is a component of stage IV chronic kidney disease. No reported chest pain. Nausea reported angina or palpitation. The patient remains on DuoNeb about treatments around the clock regarding her COPD. Echocardiogram results are still pending for now. She is on Lasix 40 mg IV every 8 hours. Outpatient medication is a been ordered re trish. Nephrology on the case. The patient is a half-way resident. 07/08/2021, the patient is in a negative fluid balance of 4 L while being on IV Lasix. Marked improvement clinically and the chest x-ray is also improving and there is improvement in the volume status. The patient remains on Lasix 40 mg IV every 8 hours. Leigh catheter still in place. Electrolytes show a sodium level of 137, BUN of 73 which is comparable and creatinine of 2.35 which is also comparable. Potassium level is at 4.5. Serum iron was low at 27. Echocardiogram was completed and the results were noted. In summary, the patient has a left ventricular function is mildly impaired with an ejection fraction of 45-50%. There is diastolic heart failure with moderate concentric LVH. RV is normal. Mild pulmonary hypertension. No other valvular abnormalities have been noted. 07/09/2021, the patient is improving and the patient is producing excess amount of urine output with IV Lasix. The fluid balance has been negative in order of 3 L over the past 24 hours. BUN is at 73 with a creatinine of 2.2. Sodium is at 139. No new complaints in the worsening shortness of breath. The patient remains on room air oxygen. Hemodynamically stable. No other significant events overnight. Electrodes are being monitored that the patient is being diuresis." The heart was also noted. 07/10/2021, the patient's continues to diurese well with Lasix 40 mg every 8 hours. There is still significant amount of edema in the lower extremities bilaterally although it's improving. Fluid balance is negative. Electrolytes are still stable and the patient has had blood work yesterday which was a BUN of 73 and a creatinine of 2.2 and repeat electrodes from today are still pending. The fluid balance over the past 24 hours is -2.8 L. No shortness of breath and the patient sitting up on a chair and she is on room air oxygen for now. 07/11/2021, the patient is doing extremely well. She is able to go back in her bed and she is able to lay down with few pillows. She remains on Lasix 40 mg every 12 hours. There is significant improvement in lower extremity edema to the point where it has essentially normalized. The patient's fluid balance over the past 24 hours has been -2.8 L. The patient is on a combination of Lasix and Zaroxolyn. She is on room air oxygen. BUN today's at 65 with a creatinine of 2.5 and a sodium level is at 135. No the surgery. No altered mentation. No other new complaints otherwise for now pH is ambulating. She has a Leigh catheter in place. Objective - Vital Signs Vital signs: Vital Signs Temp 98.2 F 07/11/21 08:42 Pulse 76 07/11/21 08:42 Resp 18 07/11/21 08:42 BP 99/64 07/11/21 08:42 Pulse Ox 93 L 07/11/21 08:42 FiO2 21 07/09/21 20:40 Intake & Output 07/10/21 07/11/21 07/11/21 18:59 06:59 18:59 Intake Total 240 1060 120 Output Total 900 1300 1000 Balance -660 -240 -880 Weight 115.7 kg Intake: Oral 240 1060 120 Output: Urine 900 1300 1000 Uretheral (Leigh) 1300 Other: Voiding Method Indwelling Catheter Indwelling Catheter - Exam GENERAL EXAM: Alert, very pleasant, 61-year-old white female, morbidly obese, resting comfortably and the patient is currently on room air oxygen Head exam was generally normal. There was no scleral icterus or corneal arcus. Mucous membranes were moist THROAT: No erythema or exudates. NECK: No masses, no JVD, no thyroid enlargement, no adenopathy. CHEST: No chest wall deformity. Symmetrical expansion. LUNGS: Equal air entry with diminished breath sounds, with scattered rales at the bases CVS: Regular rate and rhythm, normal S1 and S2, no gallops, no murmurs, no rubs ABDOMEN: Soft, nontender. No hepatosplenomegaly, normal bowel sounds, no guarding or rigidity. EXTREMITIES: No clubbing, 1+ lower extremity edema, bilateral lower extremities are kodak wrapped, no cyanosis, 2+ pulses and upper and lower extremities. MUSCULOSKELETAL: Muscle strength and tone normal. SPINE: No scoliosis or deformity SKIN: No rashes CENTRAL NERVOUS SYSTEM: Alert and oriented -3. No focal deficits, tone is normal in all 4 extremities. PSYCHIATRIC: Alert and oriented -3. Appropriate affect. Intact judgment and insight. - Labs CBC & Chem 7: 07/07/21 08:42 07/11/21 09:45 Labs: Abnormal Lab Results - Last 24 Hours (Table) 07/10/21 07/10/21 07/10/21 Range/Units 11:42 16:23 20:32 POC Glucose (mg/dL) 220 H 246 H 187 H (75-99) mg/dL 07/11/21 Range/Units 06:08 POC Glucose (mg/dL) 151 H (75-99) mg/dL Assessment and Plan Plan: Assessment: #1. Acute hypoxic respiratory failure related to acute exacerbation of diastolic CHF lung with a massive fluid overload currently on Lasix and the patient is a negative fluid balance. The patient is still on IV Lasix with excellent response #2. Chronic COPD, severe, probably stage IV at this point, baseline FEV1 of 0.76 or 31% of predicted as of 2018 #3. Ex-smoker, carries [id number] smoking history, in remission for last one year #4. Morbid obesity with BMI of 46.8 kg/m #5. Obstructive sleep apnea syndrome #6. Hypertension #7. Hyperlipidemia #8. Osteoarthritis #9. Peripheral vascular disease with previous intervention and total amputation #10. History of wounds and lower extremity #11. Hypothyroidism #12. History of fibromyalgia #13. History of chronic anemia with iron deficiency, related to antral gastritis based on the recent EGD/colonoscopy from 06/23/2021 #14. History of chronic kidney disease stage IV Plan: Clinically stable for now and the patient's overall condition involving status improved considerably. Stop IV Lasix and switch this patient to oral Lasix 40 mg twice a day. Continue Zaroxolyn Renal function stable with a creatinine is at 2.5 Weight is down 115 kg Lower extremity edema is improving We'll closely monitor renal function Discharge planning is in progress
[2021-07-11 11:49] LABS: Glucose,Whole Blood 240 mg/dL (75-99)
--- NOTE | 2021-07-11 11:58 | P.PN ---
Subjective 61-year-old female, history of COPD, diabetes mellitus, hypertension, hyperlipidemia, hypothyroidism, presents because of dyspnea Patient is awake and alert but somewhat confused, she thinks she is in [facility], she knew it is 2021 but thought it is July and she could not tell the day, but she knew the president. She needs to remind her with some inflammation. She came from care home. She is poor historian and information were obtained also from staff records. From [facility], pt had COPD and CHF exacerbation 1 month ago. Pt has gained 40lbs since discharge. Pt also states that she has been short of breath x 3 days. Pt was placed on 2 L 2 days ago for SOB. Pt sp02 was 92% on EMS arrival. She's been complaining of from dyspnea but no chest pain with little cough with no phlegm. She denies diarrhea or vomiting. She complains from some dysuria. Her vitals are stable and she is saturating 93% on 3 L oxygen via nasal cannula. hemoglobin of 8.2, wbc of 8.5, platelet count normal. inr 0.9, creatinine is 2.1, compared to baseline of 2.0-2.3. Serial troponin are negative at 0.02 and 0.019. ProBNP is slightly increased 8290 up to 11,200 his x-ray showing COPD, mild cardiomegaly and possible some mild congestion when reviewed by me. EKG showing normal sinus rhythm at [address]-T changes. In ED patient received IV Lasix and Solu-Medrol 07/07/2021 Patient still with fluid overload, however she's not in respiratory distress at rest. And her oxygen saturation is acceptable. Hemoccult 7.9 , creatinine is likely up at 2.3 but still within her baseline range, she has C Riri stage IV Echocardiogram showed ejection fraction of 40-45% with [id number] mitral regurgitation Patient continued on IV Lasix 40 mg COPD stable, discussed with pulmonary team 07/11/2021, this is the first day I started taking care of the patient Patient is back to baseline, she is breathing quietly. Her IV dose of Lasix is wished oral dose, creatinine at upper limits of her baseline of 2.5, baseline is 2.1-2.5. She is planned [facility] for [facility]hab and [facility], Also family are willing to obtain guardianship with outpatient case manager on the case. Patient looks confused. Glucose is better controlled with Levemir 30 units and limited lifting, glucose 150-240 Objective - Vital Signs Vital signs: Vital Signs Temp 98.2 F 07/11/21 08:42 Pulse 76 07/11/21 08:42 Resp 18 07/11/21 08:42 BP 99/64 07/11/21 08:42 Pulse Ox 93 L 07/11/21 08:42 FiO2 21 07/09/21 20:40 Intake & Output 07/10/21 07/11/21 07/11/21 18:59 06:59 18:59 Intake Total 240 1060 120 Output Total 900 1300 1000 Balance -660 -240 -880 Weight 115.7 kg Intake: Oral 240 1060 120 Output: Urine 900 1300 1000 Uretheral (Leigh) 1300 Other: Voiding Method Indwelling Catheter Indwelling Catheter - Exam GENERAL: The patient is alert and oriented x3, not in any acute distress. Well developed, well nourished. HEENT: Pupils are round and equally reacting to light. EOMI. No scleral icterus. No conjunctival pallor. Normocephalic, atraumatic. No pharyngeal erythema. No thyromegaly. CARDIOVASCULAR: S1 and S2 present. No murmurs, rubs, or gallops. -PULMONARY: Chest is clear to auscultation, no wheezing. Mild Bilateral basal crepitation, but has decreased air entry on both sides ABDOMEN: Soft, nontender, nondistended, normoactive bowel sounds. No palpable organomegaly. MUSCULOSKELETAL: No joint swelling or deformity. -EXTREMITIES: No cyanosis, clubbing,. Bilateral pitting leg edema, 2+ NEUROLOGICAL: Gross neurological examination did not reveal any focal deficits. SKIN: No rashes. no petechiae. - Labs CBC & Chem 7: 07/07/21 08:42 07/11/21 09:45 Labs: Abnormal Lab Results - Last 24 Hours (Table) 07/10/21 07/10/21 07/10/21 Range/Units 11:42 16:23 20:32 Sodium (137-145) mmol/L BUN (7-17) mg/dL Creatinine (0.52-1.04) mg/dL Glucose (74-99) mg/dL POC Glucose (mg/dL) 220 H 246 H 187 H (75-99) mg/dL Calcium (8.4-10.2) mg/dL 07/11/21 07/11/21 Range/Units 06:08 09:45 Sodium 135 L (137-145) mmol/L BUN 65 H (7-17) mg/dL Creatinine 2.56 H (0.52-1.04) mg/dL Glucose 195 H (74-99) mg/dL POC Glucose (mg/dL) 151 H (75-99) mg/dL Calcium 8.1 L (8.4-10.2) mg/dL Assessment and Plan Assessment: Acute CHF exacerbation COPD, stable with no exacerbation currently Dysuria, rule out urinary tract infection Chronic kidney disease, stage IV. Hyperlipidemia Hypertension Hypothyroidism Chronic leukocytosis Morbid obesity, BMI 46.8 Plan: This is a pleasant 61 years old female who presents with COPD and CHF Continue with oral Lasix Follow-up consult The Case, Cardiology, Nephrology and Pulmonology There were large her Levemir 20 units down to 10 units for now, continue with insulin sliding scale Labs and medication were reviewed.. Continue same treatment. Continue with symptomatic treatment. Resume home medication. Monitor lytes and vitals. DVT and GI prophylaxis. Further recommendations as per clinical course of the lashawn mcgrath DVT prophylaxis: Subcutaneous heparin GI Prophylaxis: Ppi Medically stable, pending placement
--- NOTE | 2021-07-11 15:00 | P.PN ---
Subjective HISTORY OF PRESENT ILLNESS: 07/06/2021 This is a 61-year-old female with history of obesity, severe COPD with EF the V1 of 0.76 and also severe diffusing abnormality, diastolic CHF, diabetes mellitus, and also chronic kidney disease and previous peripheral vascular disease with interventions, is sent from [facility] with complaints of weight gain and shortness of breath. Patient developed pain several pounds. Her chest x-ray showed evidence of CHF. Her proBNP is more than 10,000. Her hemoglobin is 8 which is chronic. She is also has elevated creatinine consistent with moderate to severe kidney disease. Patient is initiated on IV diuretics. No complaints of any chest pain or palpitation and EKG showed sinus rhythm. Patient is evaluated by nephrology and pulmonology. We'll continue current medical therapy along with inhalers and other treatments. Prognosis is guarded. Further recommended lipid upon the chemical course. In the past, Echocardiogram showed normal LV function. We'll repeat the echocardiogram 07/07/2021 Patient examined this morning at the bedside. Patient denies chest pain or pressure. She remains on IV Lasix. She reports improvement in her shortness of breath. blood pressure 113/67. 07/08/2021 Patient examined this morning at the bedside. Patient denies chest pain or pressure. Reports improving SOB. She remains on IV lasix. Chest x-ray this morning reveals cardia megaly with persistent interstitial edema and small to tiny left pleural effusion. Echocardiogram completed revealing ejection fractio n 45-50%, moderate LVH, mild pulmonary hypertension, [id number] mitral regurgitation, and mild tricuspid regurgitation 07/09 Patient seen and examined. Remains on diuretics and admits has been having good urine output. Cr 2.2 today down from 2.3. 07/10 Patient seen and examined. Patient denies any chest pain or pressure. Has been maintained on the Lasix with approximately -3 L over the last 24 hours. 07/11 Patient seen and examined. Denies any chest pain or pressure. Creatinine mil dly increased at 2.5. Zaroxolyn was added yesterday without much improvement in urine output. PHYSICAL EXAM: VITAL SIGNS: Reviewed. GENERAL: Well-developed in no acute distress. NECK: Supple. No JVD or thyromegaly LUNGS: Respirations even and unlabored. Lungs diminished auscultation bilaterally. HEART: Regular rate and rhythm. S1 and S2 heard. EXTREMITIES: Normal range of motion. No clubbing or cyanosis. Peripheral pulses intact. Bilateral lower extremity edema ASSESSMENT: acute on chronic congestive heart failure with preserved ejection fraction, borderline to intermediate, EF 45-50% COPD exacerbation Hypertension Hyperlipidemia Peripheral vascular disease Chronic kidney disease Former nicotine dependence Obstructive sleep apnea PLAN: Continue IV Lasix Monitor kidney function. Nephrology following Daily weights Accurate I&O Further recommendations pending patient course Objective - Vital Signs Vital signs: Vital Signs Temp 97.8 F 07/11/21 12:00 Pulse 76 07/11/21 12:07 Resp 18 07/11/21 12:00 BP 101/64 07/11/21 12:00 Pulse Ox 97 07/11/21 12:00 FiO2 21 07/09/21 20:40 Intake & Output 07/10/21 07/11/21 07/11/21 18:59 06:59 18:59 Intake Total 240 1060 240 Output Total 900 1300 1600 Balance -660 -240 -1360 Weight 115.7 kg Intake: Oral 240 1060 240 Output: Urine 900 1300 1600 Uretheral (Leigh) 1300 Other: Voiding Method Indwelling Catheter Indwelling Catheter Indwelling Catheter - Labs CBC & Chem 7: 07/07/21 08:42 07/11/21 09:45 Labs: Abnormal Lab Results - Last 24 Hours (Table) 07/10/21 07/10/21 07/11/21 Range/Units 16:23 20:32 06:08 Sodium (137-145) mmol/L BUN (7-17) mg/dL Creatinine (0.52-1.04) mg/dL Glucose (74-99) mg/dL POC Glucose (mg/dL) 246 H 187 H 151 H (75-99) mg/dL Calcium (8.4-10.2) mg/dL 07/11/21 07/11/21 Range/Units 09:45 11:47 Sodium 135 L (137-145) mmol/L BUN 65 H (7-17) mg/dL Creatinine 2.56 H (0.52-1.04) mg/dL Glucose 195 H (74-99) mg/dL POC Glucose (mg/dL) 240 H (75-99) mg/dL Calcium 8.1 L (8.4-10.2) mg/dL
[2021-07-11 16:43] LABS: Glucose,Whole Blood 215 mg/dL (75-99)
[2021-07-11] MEDS: FUROSEMIDE 40 MG TAB PO SCH (17:08)
[2021-07-11 20:24] LABS: Glucose,Whole Blood 246 mg/dL (75-99)
[2021-07-11] MEDS: INSULIN DETEMIR (LEVEMIR) 100 UNIT/ML SYR SQ SCH (20:51)
[2021-07-11] MEDS: ATORVASTATIN 10 MG TAB PO SCH (20:51)
[2021-07-12] MEDS: ACETAMINOPHEN TAB 325 MG TAB PO PRN (03:51)
[2021-07-12 06:09] LABS: Glucose,Whole Blood 239 mg/dL (75-99)
[2021-07-12] MEDS: LEVOTHYROXINE 88 MCG TAB PO SCH (06:38)
[2021-07-12] MEDS: PANTOPRAZOLE 40 MG TABLET PO SCH (06:39)
[2021-07-12] MEDS: carvediloL 6.25 MG TAB PO SCH (06:39)
[2021-07-12] MEDS: INSULIN ASPART (NovoLOG) 100 UNIT/ML VIAL SQ SCH ×2 (06:39→12:41)
[2021-07-12] MEDS: IPRATROPIUM-ALBUTEROL 3 ML NEB INHALATION SCH ×3 (07:14→15:30)
[2021-07-12] MEDS: NITROGLYCERIN OINT 1 INCH/GM PACKET TOPICAL SCH ×2 (08:54→12:42)
[2021-07-12] MEDS: FUROSEMIDE 40 MG TAB PO SCH (08:55)
[2021-07-12] MEDS: CLOPIDOGREL 75 MG TAB PO SCH (08:55)
[2021-07-12] MEDS: DULoxetine HCL 30 MG CAPSULE.DR PO SCH (08:55)
[2021-07-12] MEDS: LINAGLIPTIN 5 MG TABLET PO SCH (08:55)
[2021-07-12] MEDS: hydrALAZINE HCL 50 MG TAB PO SCH (08:55)
--- NOTE | 2021-07-12 11:37 | P.PN ---
Subjective Patient is seen for follow-up for chronic kidney disease. Renal function has been fairly stable. Patient is being treated for volume overload. Currently maintained on IV Lasix. No significant issues overnight. Maintained on 2 L nasal cannula Good urine output Creatinine 2.56 today No shortness of breath. Objective - Vital Signs Vital signs: Vital Signs Temp 97.3 F L 07/12/21 08:00 Pulse 73 07/12/21 08:00 Resp 17 07/12/21 08:00 BP 109/65 07/12/21 08:00 Pulse Ox 97 07/12/21 08:00 FiO2 21 07/09/21 20:40 Intake & Output 07/11/21 07/12/21 07/12/21 18:59 06:59 18:59 Intake Total 240 300 240 Output Total 2500 1900 100 Balance -2260 -1600 140 Weight 111.1 kg Intake: Oral 240 300 240 Output: Urine 2500 1900 100 Uretheral (Leigh) 500 Other: Voiding Method Indwelling Catheter Indwelling Catheter Toilet - Exam Awake, comfortable, not in any acute distress Exec alert oriented 3 Examination of the heart S1 and S2 Examination lungs bilateral breath sounds are heard Abdomen is soft nontender Examination of the lower extremities shows chronic edema with chronic skin changes. 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 CK D stage IV secondary to diabetic kidney disease with baseline creatinine 2.2-2.3 mg/dL. No evidence of obstruction on ultrasound in June 2021. 2. Volume overload currently being diuresed and slowly improving 3. Acute hypoxic respiratory failure from above, currently improving 4. Type 2 diabetes 5. Hypertension with CK D 6. Anemia of chronic disease with iron deficiency currently receiving IV iron 7. Acute on chronic diastolic CHF Plan: Continue oral diuretics Patient can be discharged from nephrology standpoint
[2021-07-12 11:42] LABS: Glucose,Whole Blood 247 mg/dL (75-99)
[2021-07-12 11:47] VITALS: BP 98/61; RESP 14; TEMP 97.6
--- NOTE | 2021-07-12 14:04 | P.DS ---
Providers Date of admission: 07/05/21 18:58 Expected date of discharge: 07/12/21 Attending physician: James Fisher Consults: 07/05/21 18:58 Consult Physician Routine Consulting Provider: Skye Ervin Consult Reason/Comments: CHF Do you want consulting provider notified?: Yes Consult Physician Routine Consulting Provider: Honorio Nguyen Consult Reason/Comments: CHF, COPD exacerbation Do you want consulting provider notified?: Yes Consult Physician Routine Consulting Provider: Ivone Purvis Consult Reason/Comments: Chronic renal insufficiency, CHF Do you want consulting provider notified?: Yes Primary care physician: [facility] Course: 61-year-old female, history of COPD, diabetes mellitus, hypertension, hyperlipidemia, hypothyroidism, presents because of dyspnea Patient is awake and alert but somewhat confused, she thinks she is in [facility], she knew it is 2021 but thought it is July and she could not tell the day, but she knew the president. She needs to remind her with some inflammation. She came from skilled nursing. She is poor historian and information were obtained also from staff records. From [facility], pt had COPD and CHF exacerbation 1 month ago. Pt has gained 40lbs since discharge. Pt also states that she has been short of breath x 3 days. Pt was placed on 2 L 2 days ago for SOB. Pt sp02 was 92% on EMS arrival. She's been complaining of from dyspnea but no chest pain with little cough with no phlegm. She denies diarrhea or vomiting. She complains from some dysuria. Her vitals are stable and she is saturating 93% on 3 L oxygen via nasal cannula. hemoglobin of 8.2, wbc of 8.5, platelet count normal. inr 0.9, creatinine is 2.1, compared to baseline of 2.0-2.3. Serial troponin are negative at 0.02 and 0.019. ProBNP is slightly increased 8290 up to 11,200 his x-ray showing COPD, mild cardiomegaly and possible some mild congestion when reviewed by me. EKG showing normal sinus rhythm at [address]-T changes. In ED patient received IV Lasix and Solu-Medrol 07/07/2021 Patient still with fluid overload, however she's not in respiratory distress at rest. And her oxygen saturation is acceptable. Hemoccult 7.9 , creatinine is likely up at 2.3 but still within her baseline range, she has C Riri stage IV Echocardiogram showed ejection fraction of 40-45% with [id number] mitral regurgitation Patient continued on IV Lasix 40 mg COPD stable, discussed with pulmonary team 07/11/2021, this is the first day I started taking care of the patient Patient is back to baseline, she is breathing quietly. Her IV dose of Lasix is wished oral dose, creatinine at upper limits of her baseline of 2.5, baseline is 2.1-2.5. She is planned to go to [facility] for rehab and placement, Also family are willing to obtain guardianship with manager of case management on the case. Patient looks confused. Glucose is better controlled with Levemir 30 units and limited lifting, glucose 150-240 July 12: Resume care of patient today. Eating well. Breathing stable. Some edema. Up to the bathroom. Patient feeling well. Communicate with digital sales planner. Patient accepted at rehab. Put on fluid restriction 2000 mL a day Discussion and discharge planning more than 35 minutes On examination: VITAL SIGNS: 97.6, 71, 14, 98/61, 95% room air GENERAL APPEARANCE: BMI 42, sitting of the edge of the bed, awake, comfortable HEENT: Normal external appearance of nose and ear. Oral cavity normal EYES: Pupils equal. Conjunctiva normal. NECK: JVD not raised. Mass not palpable. RESPIRATORY: Respiratory effort normal. Lungs clear to auscultation. CARDIOVASCULAR: First and second sounds normal. Mild edema. ABDOMEN: Soft. Liver and spleen not palpable. No tenderness. No mass palpable. PSYCHIATRY: Alert and oriented x3. Mood and affect normal. INVESTIGATIONS, reviewed in the clinical context: Sodium 135 potassium 4.1 BUN 65 creatinine 2.56 Chest x-ray: Cardiomegaly, interstitial edema. 2-D echocardiogram. EF 45-50%. [id number] mitral regurgitation. Admission labs: Creatinine 2.17 Assessment: Acute on chronic CHF exacerbation from preserved ejection fraction. COPD, stable with no exacerbation currently Dysuria, rule out urinary tract infection Chronic kidney disease, stage IV. Hyperlipidemia Hypertension Hypothyroidism Chronic leukocytosis Morbid obesity, BMI 46.8 Disposition: [facility] Patient Condition at Discharge: Fair Plan - Discharge Summary Discharge Rx Participant: No New Discharge Prescriptions: New hydrALAZINE HCL [Apresoline] 50 mg PO TID tab Furosemide [Lasix] 40 mg PO BID@0900,1600 tab Continue Clopidogrel [Plavix] 75 mg PO DAILY #90 tab Linagliptin [Tradjenta] 5 mg PO DAILY Acetaminophen [Tylenol 8 Hour] 650 mg PO Q6H PRN PRN Reason: Pain Carvedilol [Coreg] 6.25 mg PO BID Atorvastatin Calcium [Lipitor] 10 mg PO HS Levothyroxine Sodium [Synthroid] 175 mcg PO DAILY@0500 DULoxetine HCL [Cymbalta] 30 mg PO DAILY Cholecalciferol [Vitamin D3 (25 Mcg = 1000 Iu)] 50 mcg PO DAILY Ferrous Sulfate [Iron (65 MG Elemental)] 325 mg PO BID #0 guaiFENesin [Mucinex] 600 mg PO Q12H PRN PRN Reason: Cough Albuterol Nebulized [Ventolin Nebulized] 2.5 mg INHALATION RT-Q4H PRN PRN Reason: Shortness Of Breath Pantoprazole [Protonix] 40 mg PO DAILY@0500 Changed Insulin Detemir (Levemir) [Levemir] 30 unit SQ HS #0 Discontinued hydrALAZINE HCL [Apresoline] 10 mg PO BID tab lisinopriL [Zestril] 5 mg PO DAILY tab Sodium Bicarbonate 650 mg PO Q6H Furosemide [Lasix] 20 mg PO DAILY tab Discharge Medication List Clopidogrel [Plavix] 75 mg PO DAILY #90 tab 04/27/16 [Rx] Linagliptin [Tradjenta] 5 mg PO DAILY 11/06/17 [History] Acetaminophen [Tylenol 8 Hour] 650 mg PO Q6H PRN 06/17/21 [History] Albuterol Nebulized [Ventolin Nebulized] 2.5 mg INHALATION RT-Q4H PRN 06/17/21 [History] Atorvastatin Calcium [Lipitor] 10 mg PO HS 06/17/21 [History] Carvedilol [Coreg] 6.25 mg PO BID 06/17/21 [History] Cholecalciferol [Vitamin D3 (25 Mcg = 1000 Iu)] 50 mcg PO DAILY 06/17/21 [History] DULoxetine HCL [Cymbalta] 30 mg PO DAILY 06/17/21 [History] Levothyroxine Sodium [Synthroid] 175 mcg PO DAILY@0500 06/17/21 [History] Pantoprazole [Protonix] 40 mg PO DAILY@0500 06/17/21 [History] Ferrous Sulfate [Iron (65 MG Elemental)] 325 mg PO BID #0 06/24/21 [Rx] guaiFENesin [Mucinex] 600 mg PO Q12H PRN 07/05/21 [History] Furosemide [Lasix] 40 mg PO BID@0900,1600 tab 07/12/21 [Rx] Insulin Detemir (Levemir) [Levemir] 30 unit SQ HS #0 07/12/21 [Rx] hydrALAZINE HCL [Apresoline] 50 mg PO TID tab 07/12/21 [Rx] Follow up Appointment(s)/Referral(s): Eugene Sanchez DO [Primary Care Provider] - 1-2 days Activity/Diet/Wound Care/Special Instructions: fluid restrict 1999
--- NOTE | 2021-07-12 14:55 | P.PN ---
Subjective Progress Note Date: 07/12/21 Principal diagnosis: Shortness of breath On 07/12/2021 patient seen in follow-up on medical surgical floor, she is awake and alert, she is accompanied bed, in no acute distress. She is on room air, she states she is feeling much better since coming into the hospital, vital sig ns have been stable, room air pulse ox is 95-97%, no fever or chills, stable blood pressure. Patient was admitted to the hospital with a diagnosis of acute exacerbation of diastolic CHF, she does have chronic COPD, stage IV. Clinically patient has significantly improved. Patient has been transitioned to oral diuretics. Patient is in -3.8 L net fluid balance, lower extremity edema has improved, breathing has improved, and patient's weight is down by 12 kg since admission. Objective - Vital Signs Vital signs: Vital Signs Temp 97.6 F 07/12/21 11:46 Pulse 71 07/12/21 11:46 Resp 14 07/12/21 11:46 BP 98/61 07/12/21 11:46 Pulse Ox 95 07/12/21 11:46 FiO2 21 07/09/21 20:40 Intake & Output 07/11/21 07/12/21 07/12/21 18:59 06:59 18:59 Intake Total 240 300 240 Output Total 2500 1900 100 Balance -2260 -1600 140 Weight 111.1 kg Intake: Oral 240 300 240 Output: Urine 2500 1900 100 Uretheral (Leigh) 500 Other: Voiding Method Indwelling Catheter Indwelling Catheter Toilet - Exam GENERAL EXAM: Alert, very pleasant, 61-year-old white female, on room air with a pulse ox of 97% comfortable in no apparent distress. HEAD: Normocephalic/atraumatic. EYES: Normal reaction of pupils, equal size. Conjunctiva pink, sclera white. NOSE: Clear with pink turbinates. THROAT: No erythema or exudates. NECK: No masses, no JVD, no thyroid enlargement, no adenopathy. CHEST: No chest wall deformity. Symmetrical expansion. LUNGS: Equal air entry with no crackles, wheeze, rhonchi or dullness. CVS: Regular rate and rhythm, normal S1 and S2, no gallops, no murmurs, no rubs ABDOMEN: Soft, nontender. No hepatosplenomegaly, normal bowel sounds, no guarding or rigidity. EXTREMITIES: No clubbing, no edema, no cyanosis, 2+ pulses and upper and lower extremities. MUSCULOSKELETAL: Muscle strength and tone normal. SPINE: No scoliosis or deformity SKIN: No rashes CENTRAL NERVOUS SYSTEM: Alert and oriented -3. No focal deficits, tone is normal in all 4 extremities. PSYCHIATRIC: Alert and oriented -3. Appropriate affect. Intact judgment and insight. - Labs CBC & Chem 7: 07/07/21 08:42 07/11/21 09:45 Labs: Abnormal Lab Results - Last 24 Hours (Table) 07/11/21 07/11/21 07/12/21 Range/Units 16:40 20:23 06:08 POC Glucose (mg/dL) 215 H 246 H 239 H (75-99) mg/dL 07/12/21 Range/Units 11:40 POC Glucose (mg/dL) 247 H (75-99) mg/dL Assessment and Plan Plan: Assessment: #1. Acute hypoxic respiratory failure related to acute exacerbation of diastolic CHF, patient presented with evidence of massive fluid overload, has been diuresed, with improvement in dyspnea, oxygenation, and lower extremity edema #2. Chronic COPD, severe, probably stage IV at this point, baseline FEV1 of 0.76 or 31% of predicted as of 2018 #3. Ex-smoker, carries [id number] smoking history, in remission for last one year #4. Morbid obesity with BMI of 46.8 kg/m #5. Obstructive sleep apnea syndrome #6. Hypertension #7. Hyperlipidemia #8. Osteoarthritis #9. Peripheral vascular disease with previous intervention and total amputation #10. History of wounds and lower extremity #11. Hypothyroidism #12. History of fibromyalgia #13. History of chronic anemia with iron deficiency, related to antral gastritis based on the recent EGD/colonoscopy from 06/23/2021 #14. History of chronic kidney disease stage IV Plan: Patient's breathing status has significantly improved, overall fluid volume status as well including lower extremity edema Renal profile to a slight bump up on yesterday's labs Diuretics have been transitioned to oral Nephrology following Clinically patient is stable, She is being discharged home today She needs outpatient follow-up with Dr. Rene in the office in 7-10 days for posthospital follow-up I have personally seen and examined the patient, performed the documentation and the assessment and plan as written. Number of minutes spent on the visit: [15] Time with Patient: Less than 30
[2021-07-12 15:35] VITALS: PULSE 74
--- NOTE | 2021-07-12 16:50 | PN ---
PROGRESS NOTE This lady has severe COPD and also some diffusion abnormality as well. She has diastolic heart failure, hypertension, diabetes. She has no chest pain or shortness of breath. Creatinine is mildly elevated. Overall she is doing better. Physical exam revealed vitals are stable. No JVD. S1-S2 heard normally. No significant murmurs. Lungs revealed decent air entry. Abdomen and lower extremity exam unchanged. Plan is to continue current medications, increase activity, and possible discharge soon. MMODL / IJN: [id number] /
== END 2021-07-12 16:15 | DRG 291 ==
LOC: EC 14:36 → 3SCARD 18:58
PROVIDERS: ADMIT Hospitalist; ATTEND Hospitalist
DX: I13.0 Hypertensive heart and chronic kidney disease with heart failure and stage 1 through stage 4 chronic kidney disease, or unspecified chronic kidney disease (principal); I50.33 Acute on chronic diastolic (congestive) heart failure; J96.01 Acute respiratory failure with hypoxia; G93.41 Metabolic encephalopathy; J44.1 Chronic obstructive pulmonary disease with (acute) exacerbation; N18.4 Chronic kidney disease, stage 4 (severe); Z68.42 Body mass index [BMI] 45.0-49.9, adult; D63.1 Anemia in chronic kidney disease; I37.1 Nonrheumatic pulmonary valve insufficiency; E11.22 Type 2 diabetes mellitus with diabetic chronic kidney disease; R00.0 Tachycardia, unspecified; E78.5 Hyperlipidemia, unspecified; D50.9 Iron deficiency anemia, unspecified; E03.9 Hypothyroidism, unspecified; K29.60 Other gastritis without bleeding; D72.829 Elevated white blood cell count, unspecified; E66.01 Morbid (severe) obesity due to excess calories; E11.40 Type 2 diabetes mellitus with diabetic neuropathy, unspecified; E11.51 Type 2 diabetes mellitus with diabetic peripheral angiopathy without gangrene; I27.20 Pulmonary hypertension, unspecified; G47.33 Obstructive sleep apnea (adult) (pediatric); I08.1 Rheumatic disorders of both mitral and tricuspid valves; M19.90 Unspecified osteoarthritis, unspecified site; M79.7 Fibromyalgia; Z87.891 Personal history of nicotine dependence; Z79.02 Long term (current) use of antithrombotics/antiplatelets; Z79.4 Long term (current) use of insulin; Z79.84 Long term (current) use of oral hypoglycemic drugs; Z79.890 Hormone replacement therapy; Z79.899 Other long term (current) drug therapy; Z80.1 Family history of malignant neoplasm of trachea, bronchus and lung; Z82.49 Family history of ischemic heart disease and other diseases of the circulatory system; Z89.429 Acquired absence of other toe(s), unspecified side
CPT/HCPCS: 36415; 71045; 71046; 80048; 80053; 82728; 83540; 83550; 83605; 83735; 83880; 84484; 85025; 85610; 85730; 93005; 93306; 94640; 94760; 96374; 96375; 96376; 99291

== ENCOUNTER 2021-09-25 04:17 | Emergency (ER) | payer MEDICARE, OTHER ==
--- NOTE | 2021-09-25 04:31 | ED ---
CPR HPI - General Stated Complaint: Cardiac Arrest Time Seen by Provider: 09/25/21 04:28 Source: RN notes reviewed, old records reviewed - History of Present Illness Initial Comments: This was a 61 female to the ED sp cardiac arrest unknown cause she is a DO NOT RESUSCITATE presentation DO NOT RESUSCITATE MD Complaint: found unresponsive, unknown -: unknown Place: other (extended care facility) Bystander CPR Performed: No AED Applied by Bystander/Deicer Repairer Pneumatic: No Shock Advised: No Initial Findings in the Field: unresponsive ROSC in the Field: No Associated Injuries: No Treatments Prior to Arrival: intubation - Related Data Home Medications Medication Instructions Recorded Confirmed Linagliptin [Tradjenta] 5 mg PO DAILY 11/06/17 07/05/21 Acetaminophen [Tylenol 8 Hour] 650 mg PO Q6H PRN 06/17/21 07/05/21 Albuterol Nebulized [Ventolin 2.5 mg INHALATION RT-Q4H PRN 06/17/21 07/05/21 Nebulized] Atorvastatin Calcium [Lipitor] 10 mg PO HS 06/17/21 07/05/21 Cholecalciferol [Vitamin D3 (25 50 mcg PO DAILY 06/17/21 07/05/21 Mcg = 1000 Iu)] DULoxetine HCL [Cymbalta] 30 mg PO DAILY 06/17/21 07/05/21 Levothyroxine Sodium [Synthroid] 175 mcg PO DAILY@0500 06/17/21 07/05/21 Pantoprazole [Protonix] 40 mg PO DAILY@0500 06/17/21 07/05/21 carvediloL [Coreg] 6.25 mg PO BID 06/17/21 07/05/21 guaiFENesin [Mucinex] 600 mg PO Q12H PRN 07/05/21 07/05/21 Previous Rx's Medication Instructions Recorded Clopidogrel [Plavix] 75 mg PO DAILY #90 tab 04/27/16 Ferrous Sulfate [Iron (65 MG 325 mg PO BID #0 06/24/21 Elemental)] Furosemide [Lasix] 40 mg PO BID@0900,1600 tab 07/12/21 Insulin Detemir (Levemir) [Levemir] 30 unit SQ HS #0 07/12/21 hydrALAZINE HCL [Apresoline] 50 mg PO TID tab 07/12/21 Allergies Allergy/AdvReac Type Severity Reaction Status Date / Time No Known Allergies Allergy Verified 09/25/21 04:35 Review of Systems ROS Statement: Those systems with pertinent positive or pertinent negative responses have been documented in the HPI. ROS Other: All systems not noted in ROS Statement are negative. Past Medical History Past Medical History: COPD, Diabetes Mellitus, Eye Disorder, Fibromyalgia, Hyperlipidemia, Hypertension, Musculoskeletal Disorder, Neurologic Disorder, Osteoarthritis (OA), Pneumonia, Skin Disorder, Sleep Apnea/CPAP/BIPAP, Thyroid Disorder, Vascular Disorder Additional Past Medical History / Comment(s): IDDM type II, diabetic neuropathy hands and feet bilaterally, States she thinks she has Sleep Apnea., bilateral carpal tunnel, vertigo, slight [place] , macular degeneration , hx. bronchitis, & pneumonia., sinus problems, Incontinent bowel and bladder., states scabs on upper arms. , SFA disease, wound on right foot- states no wt bearing- using wheel chair; Flu-ICU admission History of Any Multi-Drug Resistant Organisms: None Reported Past Surgical History: No Surgical Hx Reported Additional Past Surgical History / Comment(s): Colonoscopy, PICC line, Angiogram with Arthrectomy and Femoral stent (2017)rt.3rd & 4th toe amputation 2018 Past Anesthesia/Blood Transfusion Reactions: No Reported Reaction Past Psychological History: No Psychological Hx Reported Smoking Status: Former smoker Past Alcohol Use History: None Reported Past Drug Use History: None Reported - Past Family History Mother Family Medical History: Cancer Additional Family Medical History / Comment(s): Mother at 69yrs of age of lung cancer. Father Family Medical History: Cancer Additional Family Medical History / Comment(s): Father at 60 yrs of age of mesothelioma. Brother(s) Family Medical History: Coronary Artery Disease (CAD) Sister(s) Family Medical History: Hypertension Daughter(s) Family Medical History: No Reported History Son(s) Family Medical History: No Reported History General Exam General appearance: alert, in no apparent distress Head exam: Present: atraumatic, normocephalic, normal inspection Eye exam: Present: normal appearance, PERRL, EOMI. Absent: scleral icterus, conjunctival injection, periorbital swelling ENT exam: Present: normal exam, mucous membranes moist Neck exam: Present: normal inspection. Absent: tenderness, meningismus, lymphadenopathy Respiratory exam: Present: normal lung sounds bilaterally. Absent: respiratory distress, wheezes, rales, rhonchi, stridor Cardiovascular Exam: Present: regular rate, normal rhythm, normal heart sounds. Absent: systolic murmur, diastolic murmur, rubs, gallop, clicks GI/Abdominal exam: Present: soft, normal bowel sounds. Absent: distended, tenderness, guarding, rebound, rigid Extremities exam: Present: normal inspection, full ROM, normal capillary refill. Absent: tenderness, pedal edema, joint swelling, calf tenderness Back exam: Present: normal inspection Neurological exam: Present: alert, oriented X3, CN II-XII intact Psychiatric exam: Present: normal affect, normal mood Skin exam: Present: warm, dry, intact, normal color. Absent: rash Course Vital Signs 09/25/21 04:19 Temperature 97.9 F Pulse Rate 50 L Respiratory 24 Rate Blood Pressure 108/56 O2 Sat by Pulse 92 L Oximetry - Reevaluation(s) Reevaluation #1: 09/25/21 06:05 medical records reviewed Reevaluation #2: 09/25/21 06:05 patient found to be DO NOT RESUSCITATE prior to arrival, care was resuscitated Medical Decision Making - Medical Decision Making 61 female to THE ED for evaluation patient presents today for evaluation status post CPR. Patient is without pulses, without heartbeat, without lung sounds, pupils fixed and dilated - Lab Data Lab Results 09/25/21 Range/Units 04:21 POC Glucose (mg/dL) 199 H (70-110) mg/dL POC Glu Market Research Coordinator ID Heather Hernandez Disposition Clinical Impression: Cardiac arrest Disposition: Condition: Undetermined Is patient prescribed a controlled substance at d/c from ED?: No Referrals: Eugene Sanchez DO [Primary Care Provider] - 1-2 days Preliminary Cause of : ACS
[2021-09-25 04:33] LABS: Glucose,Whole Blood 199 mg/dL (70-110)
[2021-09-25 04:37] VITALS: TEMP 97.9
[2021-09-25 06:22] VITALS: BP 0/0; PULSE 0; RESP 0
== END 2021-09-25 06:22 | disposition expired ==
LOC: EC 04:17
DX: I46.9 Cardiac arrest, cause unspecified (principal); J44.9 Chronic obstructive pulmonary disease, unspecified; E11.9 Type 2 diabetes mellitus without complications; E78.5 Hyperlipidemia, unspecified; I10 Essential (primary) hypertension; E07.9 Disorder of thyroid, unspecified; Z79.899 Other long term (current) drug therapy; Z87.891 Personal history of nicotine dependence
CPT/HCPCS: 36415